=== PATIENT | female | born 1955 | race Caucasian/White ===

== ENCOUNTER → 2017-07-31 13:46 | Outpatient (CLI) | payer MEDICARE, SELFPAY ==
[2017-07-31 14:47] LABS: International Normalized Ratio 2.6; Prothrombin Time (Protime)PT. 27.8 SECONDS (11.7-14.9)
[2017-07-31 14:57] LABS: Hemoglobin A1c 6.9 % (4.2-6.3)
== END ==
PROVIDERS: Family Provider Family Medicine; PCP Family Medicine; Visit Provider Family Medicine
DX: E11.9 Type 2 diabetes mellitus without complications (principal); I48.91 Unspecified atrial fibrillation
CPT/HCPCS: 36415; 83036; 85610

== ENCOUNTER 2017-08-25 14:59 | Outpatient (RCR) | payer MEDICARE, SELFPAY ==
[2017-08-25 17:17] LABS: International Normalized Ratio 2.5; Prothrombin Time (Protime)PT. 26.7 SECONDS (11.7-14.9)
== END 2017-08-25 15:00 | disposition home or self-care (01) ==
LOC: LAB 14:59
PROVIDERS: Family Provider Family Medicine; PCP Family Medicine; Visit Provider Family Medicine
DX: I48.91 Unspecified atrial fibrillation (principal); J44.9 Chronic obstructive pulmonary disease, unspecified; F40.240 Claustrophobia; F41.9 Anxiety disorder, unspecified; F32.9 Major depressive disorder, single episode, unspecified; G45.9 Transient cerebral ischemic attack, unspecified; E11.9 Type 2 diabetes mellitus without complications; D68.62 Lupus anticoagulant syndrome; I27.21 Secondary pulmonary arterial hypertension
CPT/HCPCS: 36415; 85610

== ENCOUNTER 2017-09-29 13:35 | Outpatient (RCR) | payer MEDICARE, SELFPAY ==
[2017-09-29 15:41] LABS: International Normalized Ratio 2.6; Prothrombin Time (Protime)PT. 28.2 SECONDS (11.7-14.9)
== END 2017-09-29 14:00 | disposition home or self-care (01) ==
LOC: LAB 13:35
PROVIDERS: Family Provider Family Medicine; PCP Family Medicine; Visit Provider Family Medicine
DX: I48.91 Unspecified atrial fibrillation (principal); J44.9 Chronic obstructive pulmonary disease, unspecified; F40.240 Claustrophobia; F41.9 Anxiety disorder, unspecified; F32.9 Major depressive disorder, single episode, unspecified; Z86.73 Personal history of transient ischemic attack (TIA), and cerebral infarction without residual deficits; E11.9 Type 2 diabetes mellitus without complications; D68.62 Lupus anticoagulant syndrome; I27.21 Secondary pulmonary arterial hypertension
CPT/HCPCS: 36415; 85610

== ENCOUNTER 2017-11-24 14:03 | Outpatient (RCR) | payer MEDICARE, SELFPAY ==
[2017-11-24 15:47] LABS: Prothrombin Time (Protime)PT. 31.2 SECONDS (11.7-14.9)
[2017-11-24 16:45] LABS: Hemoglobin A1c 6.9 % (4.2-6.3)
== END 2017-11-24 15:00 | disposition home or self-care (01) ==
LOC: LAB 14:03
PROVIDERS: Family Provider Family Medicine; PCP Family Medicine; Visit Provider Family Medicine
DX: I48.91 Unspecified atrial fibrillation (principal); E11.9 Type 2 diabetes mellitus without complications; J44.9 Chronic obstructive pulmonary disease, unspecified; F40.240 Claustrophobia; F41.9 Anxiety disorder, unspecified; F32.9 Major depressive disorder, single episode, unspecified; Z86.73 Personal history of transient ischemic attack (TIA), and cerebral infarction without residual deficits; D68.62 Lupus anticoagulant syndrome; I27.21 Secondary pulmonary arterial hypertension
CPT/HCPCS: 36415; 83036; 85610

== ENCOUNTER → 2017-12-30 15:50 | Outpatient (CLI) | payer MEDICARE, SELFPAY ==
[2017-12-30 15:56] LABS: Mucous, Urine 0 SEEN /hpf (<or=2+)
[2017-12-30 17:43] LABS: Color, Urine Red (Yellow); Glucose, Dipstick Normal (Normal); Ketone-Dipstick Negative (Negative); Leukocyte Esterase-Dipstick Negative /ul (Negative); Nitrite-Dipstick Negative (Negative); Occult Blood-Urine 250 /ul (Negative); Protein-Dipstick 500 mg/dl (Negative); Urine Bilirubin Dipstick Negative (Negative); Urine Clarity Turbid (Clear); Urine Urobilinogen Normal (Normal)
[2017-12-30 17:52] LABS: Red Blood Cells-Urine > 100 SEEN /hpf (0-5); Squamous Epithelial Cells - UA 0-5 SEEN /hpf (5-10); White Blood Cells 25-50 SEEN /hpf (0-5)
[2017-12-30 17:53] LABS: Bacteria 4+ /hpf (None Seen)
== END ==
PROVIDERS: Family Provider Family Medicine; PCP Family Medicine; Visit Provider Family Medicine
DX: R31.9 Hematuria, unspecified (principal)
CPT/HCPCS: 81001

== ENCOUNTER 2018-01-06 14:12 | Outpatient (RCR) | payer MEDICARE, SELFPAY ==
[2017-12-29 17:13] LABS: Prothrombin Time (Protime)PT. 36.9 SECONDS (11.7-14.9)
[2017-12-29 17:18] LABS: International Normalized Ratio 3.7
[2018-01-06 16:25] LABS: International Normalized Ratio 2.5; Prothrombin Time (Protime)PT. 27.3 SECONDS (11.7-14.9)
== END 2018-01-06 16:00 | disposition home or self-care (01) ==
LOC: LAB 14:12
PROVIDERS: Family Provider Family Medicine; PCP Family Medicine; Visit Provider Family Medicine
DX: I48.91 Unspecified atrial fibrillation (principal); E11.9 Type 2 diabetes mellitus without complications; J44.9 Chronic obstructive pulmonary disease, unspecified; F40.240 Claustrophobia; F41.9 Anxiety disorder, unspecified; F32.9 Major depressive disorder, single episode, unspecified; Z86.73 Personal history of transient ischemic attack (TIA), and cerebral infarction without residual deficits; D68.62 Lupus anticoagulant syndrome; I27.21 Secondary pulmonary arterial hypertension
CPT/HCPCS: 36415; 85610

== ENCOUNTER 2018-02-02 15:42 | Outpatient (RCR) | payer MEDICARE, SELFPAY ==
[2018-02-02 17:48] LABS: International Normalized Ratio 2.1; Prothrombin Time (Protime)PT. 23.6 SECONDS (11.7-14.9)
== END 2018-02-02 17:00 | disposition home or self-care (01) ==
LOC: LAB 15:42
PROVIDERS: Family Provider Family Medicine; PCP Family Medicine; Visit Provider Family Medicine
DX: I48.91 Unspecified atrial fibrillation (principal); E11.9 Type 2 diabetes mellitus without complications; J44.9 Chronic obstructive pulmonary disease, unspecified; F40.240 Claustrophobia; F41.9 Anxiety disorder, unspecified; F32.9 Major depressive disorder, single episode, unspecified; Z86.73 Personal history of transient ischemic attack (TIA), and cerebral infarction without residual deficits; D68.62 Lupus anticoagulant syndrome; I27.21 Secondary pulmonary arterial hypertension
CPT/HCPCS: 36415; 85610

== ENCOUNTER → 2018-02-08 16:32 | Outpatient (CLI) | payer MEDICARE, SELFPAY | PROVIDERS: Family Provider Family Medicine; PCP Family Medicine; Referring Provider Family Medicine; Visit Provider Family Medicine | DX: N34.3 Urethral syndrome, unspecified (principal) | CPT/HCPCS: 36415; 87086; 87088; 87186 ==

== ENCOUNTER 2018-02-23 15:39 | Outpatient (RCR) | payer MEDICARE, SELFPAY ==
[2018-02-23 17:35] LABS: International Normalized Ratio 2.1
== END 2018-02-23 17:00 | disposition home or self-care (01) ==
LOC: LAB 15:39
PROVIDERS: Family Provider Family Medicine; PCP Family Medicine; Referring Provider Family Medicine; Visit Provider Family Medicine
DX: I48.91 Unspecified atrial fibrillation (principal); D68.62 Lupus anticoagulant syndrome; J44.9 Chronic obstructive pulmonary disease, unspecified; F40.240 Claustrophobia; F41.9 Anxiety disorder, unspecified; F32.9 Major depressive disorder, single episode, unspecified; E11.9 Type 2 diabetes mellitus without complications; I27.21 Secondary pulmonary arterial hypertension; Z86.73 Personal history of transient ischemic attack (TIA), and cerebral infarction without residual deficits
CPT/HCPCS: 36415; 85610

== ENCOUNTER 2018-05-05 13:15 | Outpatient (RCR) | payer MEDICARE, SELFPAY ==
[2018-04-05 14:46] LABS: International Normalized Ratio 2.8; Prothrombin Time (Protime)PT. 29.8 SECONDS (11.7-14.9)
[2018-04-06 14:32] VITALS: BMI 34.9
[2018-05-05 15:44] LABS: International Normalized Ratio 2.7; Prothrombin Time (Protime)PT. 28.6 SECONDS (11.7-14.9)
== END 2018-05-05 14:00 | disposition home or self-care (01) ==
LOC: MTLAB 13:15
PROVIDERS: Family Provider Family Medicine; PCP Family Medicine; Referring Provider Family Medicine; Visit Provider Family Medicine
DX: D68.62 Lupus anticoagulant syndrome (principal); I48.91 Unspecified atrial fibrillation; J44.9 Chronic obstructive pulmonary disease, unspecified; F40.240 Claustrophobia; F41.9 Anxiety disorder, unspecified; F32.9 Major depressive disorder, single episode, unspecified; E11.9 Type 2 diabetes mellitus without complications; I27.21 Secondary pulmonary arterial hypertension; Z86.73 Personal history of transient ischemic attack (TIA), and cerebral infarction without residual deficits
CPT/HCPCS: 36415; 85610

== ENCOUNTER 2018-05-28 15:54 | Outpatient (RCR) | payer MEDICARE, SELFPAY ==
[2018-05-06 14:47] VITALS: BMI 34.9
[2018-05-27 14:33] VITALS: BMI 34.9
[2018-05-28 18:11] LABS: International Normalized Ratio 2.5; Prothrombin Time (Protime)PT. 26.7 SECONDS (11.7-14.9)
--- OUTSIDE RECORDS SUMMARY | 2018-08-02 05:39 | XMS RPT_ITS ---
:1955 Author Organization OHIP Support Name Relationship Address Phone CALL, LARY Unavailable Unavailable + D Unavailable Unavailable Unavailable MARK LAWRENCE Unavailable Unavailable + CALL, LARY Unavailable Unavailable + D Unavailable Unavailable Unavailable MARK ALWRENCE Unavailable Unavailable + CALL, LARY Unavailable [address] + [place] [address] D Unavailable Unavailable Unavailable MARK LAWRENCE Unavailable [address] + [place] [address] CALL, LARY Unavailable [address] + [place] [address] D Unavailable Unavailable Unavailable MARK LAWRENCE Unavailable [address] + [place] [address] CALL, LARY Unavailable [address] + [place] [address] D Unavailable Unavailable Unavailable MARK LAWRENCE Unavailable [address] + [place] [address] CALL, LARY Unavailable [address] + [place] [address] D Unavailable Unavailable Unavailable MARK LAWRENCE Unavailable [address] + [place] [address] CALL, LARY Unavailable [address] + [place] [address] D Unavailable Unavailable Unavailable MARK LAWRENCE Unavailable [address] + [place] [address] CALL, LARY Unavailable [address] + [place] [address] D Unavailable Unavailable Unavailable MARK LAWRENCE Unavailable [address] + [place] [address] CALL, LARY Unavailable [address] + [place] [address] D Unavailable Unavailable Unavailable MARK LAWRENCE Unavailable [address] + [place] [address] CALL, LARY Unavailable [address] + [place] [address] D Unavailable Unavailable Unavailable MARK LAWRENCE Unavailable [address] + [place] [address] CALL, LARY Unavailable [address] + [place] [address] D Unavailable Unavailable Unavailable MARK LAWRENCE Unavailable [address] + [place] [address] CALL, LARY Unavailable [address] + [place] [address] D Unavailable Unavailable Unavailable MARK LAWRENCE Unavailable [address] + [place] [address] CALL, LARY Unavailable [address] + [place] [address] D Unavailable Unavailable Unavailable MARK LAWRENCE Unavailable [address] + [place] [address] CALL, LARY Unavailable [address] + [place] [address] D Unavailable Unavailable Unavailable MARK LAWRENCE Unavailable [address] + [place] [address] CALL LARY Unavailable [address] + [place] [address] D Unavailable Unavailable Unavailable MARK LAWRENCE Unavailable [address] + [place] [address] CALL, LARY Unavailable [address] + [place] [address] D Unavailable Unavailable Unavailable MARK LAWRENCE Unavailable [address] + [place] [address] CALLLARY Unavailable [address] + [place] [address] D Unavailable Unavailable Unavailable MARK LAWRENCE Unavailable [address] + [place] [address] CALL, LARY Unavailable [address] + [place] [address] D Unavailable Unavailable Unavailable MARK LAWRENCE Unavailable [address] + [place] [address] CALL, LARY Unavailable [address] + [place] [address] D Unavailable Unavailable Unavailable MARK LAWRENCE Unavailable [address] + [place] [address] CALL, LARY Unavailable [address] + [place] [address] D Unavailable Unavailable Unavailable MARK LAWRENCE Unavailable [address] + [place] [address] CALL, LARY Unavailable [address] + [place] [address] D Unavailable Unavailable Unavailable MARK LAWRENCE Unavailable [address] + [place] [address] CALL, LARY Unavailable [address] + [place] [address] D Unavailable Unavailable Unavailable MRAK LAWRENCE Unavailable [address] + [place] [address] CALL, LARY Unavailable [address] + [place] [address] D Unavailable Unavailable Unavailable MARK LAWRENCE Unavailable [address] + [place] [address] CALL, LARY Unavailable [address] + [place] [address] D Unavailable Unavailable Unavailable MARK LAWRENCE Unavailable [address] + [place] [address] CALL, LARY Unavailable [address] + [place] [address] D Unavailable Unavailable Unavailable MARK LAWRENCE Unavailable [address] + [place] [address] CALL, LARY Unavailable [address] + [place] [address] D Unavailable Unavailable Unavailable MARK LAWRENCE Unavailable [address] + [place] [address] CALLLARY Unavailable [address] + [place] [address] D Unavailable Unavailable Unavailable MARK LAWRENCE Unavailable [address] + [place] [address] CALLLARY Unavailable [address] + [place] [address] D Unavailable Unavailable Unavailable MARK LAWRENCE Unavailable [address] + [place] [address] CALL, ALRY Unavailable [address] + [place] [address] D Unavailable Unavailable Unavailable MARK LAWRENCE Unavailable [address] + [place] [address] CALL, LARY Unavailable [address] + [place] [address] D Unavailable Unavailable Unavailable MARK LAWRENCE Unavailable [address] + [place] [address] Care Team Providers Name Role Phone CADEN WILLETT (PIPE RACKER) Referring Unavailable HERESI MARIE, NEERAJ A Referring Unavailable JAY, CADEN (PIPE RACKER) Referring Unavailable HERESI MARIE, NEERAJ A Attending Unavailable HERESI MARIE, NEERAJ A Referring Unavailable HERESI MARIE, NEERAJ A Referring Unavailable JAY, CADEN (PIPE RACKER) Referring Unavailable JAY, CADEN (PIPE RACKER) Attending Unavailable JAY, CADEN (PIPE RACKER) Referring Unavailable JAY, CADEN (PIPE RACKER) Referring Unavailable Brown, Anika Attending Unavailable Brown, Anika Referring Unavailable Brown, Anika Attending Unavailable Brown, Anika Referring Unavailable Brown, Anika Primary Care Unavailable Brown, Anika Attending Unavailable Brown, Anika Referring Unavailable Brown, Anika Attending Unavailable Brown, Anika Referring Unavailable Brown, Anika Primary Care Unavailable Brown, Anika Attending Unavailable Brown, Anika Referring Unavailable Brown, Anika Attending Unavailable Brown, Anika Referring Unavailable Brown, Anika Primary Care Unavailable Brown, Anika Attending Unavailable Brown, Anika Referring Unavailable Brown, Anika Primary Care Unavailable Brown, Anika Attending Unavailable Brown, Anika Referring Unavailable Brown, Anika Primary Care Unavailable Brown, Anika Attending Unavailable Brown, Anika Referring Unavailable Brown, Anika Primary Care Unavailable Brown, Anika Attending Unavailable Brown, Anika Referring Unavailable Brown, Anika Primary Care Unavailable Brown, Anika Attending Unavailable Brown, Anika Referring Unavailable Brown, Anika Primary Care Unavailable Hailee Renteria Attending Unavailable Brown, Anika Attending Unavailable Brown, Anika Referring Unavailable Brown, Anika Primary Care Unavailable Brown, Anika Attending Unavailable Brown, Anika Referring Unavailable Brown, Anika Attending Unavailable Brown, Anika Referring Unavailable Brown, Anika Attending Unavailable Brown, Anika Referring Unavailable Brown, Anika Attending Unavailable Brown, Anika Referring Unavailable Brown, Anika Attending Unavailable Brown, Anika Referring Unavailable Brown, Anika Primary Care Unavailable Brown, Anika Attending Unavailable Brown, Anika Referring Unavailable Brown, Anika Primary Care Unavailable Brown, Anika Attending Unavailable Brown, Anika Referring Unavailable Brown, Anika Primary Care Unavailable Brown, Anika Attending Unavailable Brown, Anika Referring Unavailable Brown, Anika Primary Care Unavailable Brown, Anika Attending Unavailable Brown, Anika Referring Unavailable Brown, Anika Attending Unavailable Brown, Anika Referring Unavailable Brown, Anika Primary Care Unavailable Brown, Anika Attending Unavailable Brown, Anika Referring Unavailable Brown, Anika Primary Care Unavailable Brown, Anika Attending Unavailable Brown, Anika Referring Unavailable Parrish Calix DIE CASTER-C Attending Unavailable Brown, Anika Referring Unavailable Brown, Anika Attending Unavailable Brown, Anika Referring Unavailable Brown, Anika Primary Care Unavailable Darya Marquez Attending Unavailable Brown, Anika Referring Unavailable O[place]yeRadhaewongbe Attending Unavailable Brown, Anika Referring Unavailable Brown, Anika Attending Unavailable Brown, Anika Referring Unavailable PROBLEMS PROBLEMS DATE TYPE CONDITION / CODE ATTENDING STATUS SOURCE 05/06/2018 Unknown E11.9 - Type 2 Anika Pedraza Active [place] diabetes mellitus Community without Hospital complications / Repository E11.9(ICD-10) 05/10/2018 Unknown D68.62 - Lupus Anika Pedraza Active [facility] anticoagulant Community syndrome / Hospital D68.62(ICD-10) Repository 04/06/2018 Unknown Z12.31 - Encounter Anika Pedraza Active [facility] for screening Community mammogram for Hospital malignant neoplasm Repository of breast / Z12.31(ICD-10) 03/25/2018 Active Other prison NA Active [facility] (current) drug [facility] Main therapy / [place] Z79.899(ICD-10) Repository 03/11/2018 Unknown I48.91 - Unspecified BrownAnika Active [place] atrial fibrillation Community / I48.91(ICD-10) Hospital Repository 03/11/2018 Unknown 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 Community 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 / Hospital Z79.01(ICD-10) Repository 02/04/2018 Unknown Z23 - Encounter for Anika Pedraza Active [place] immunization / Community Z23(ICD-10) Hospital Repository 01/12/2018 Unknown R31.9 - Hematuria, Ankia Pedraza Active [place] unspecified / Community R31.9(ICD-10) Hospital Repository 11/25/2017 Unknown F41.9 - Anxiety Anika Pedraza Active [facility] disorder, Community unspecified / Hospital F41.9(ICD-10) Repository 11/25/2017 Unknown G45.9 - Transient Anika Pedraza Active [place] cerebral ischemic Community attack, unspecified Hospital / G45.9(ICD-10) Repository 11/25/2017 Unknown I27.0 - Primary Anika Pedraza Active [facility] pulmonary Community hypertension / Hospital I27.0(ICD-10) Repository 11/25/2017 Unknown L73.9 - Follicular Anika Pedraza Active [facility] disorder, Community unspecified / Hospital L73.9(ICD-10) Repository 10/06/2017 Active Chronic NA Active [facility] thromboembolic Clinic Main pulmonary [place] hypertension / Repository I27.24(ICD-10) 09/23/2017 Active Shortness of breath NA Active [facility] / R06.02(ICD-10) Clinic Main [place] Repository 09/23/2017 Active Pulmonary heart NA Active [facility] disease, unspecified Clinic Main / I27.9(ICD-10) [place] Repository 07/29/2017 Unknown I27.21 - Secondary Anika Pedraaz Active [facility] pulmonary arterial Community hypertension / Hospital I27.21(ICD-10) Repository 07/29/2017 Unknown J44.9 - Chronic Anika Pedraza Active [facility] obstructive Community pulmonary disease, Hospital unspecified / Repository J44.9(ICD-10) 07/29/2017 Unknown F40.240 - Anika Pedraza Active [facility] Claustrophobia / Community F40.240(ICD-10) Hospital Repository 07/29/2017 Unknown F32.9 - Major Anika Pedraza Active [facility] depressive disorder, Community single episode, Hospital unspecified / Repository F32.9(ICD-10) PROCEDURES PROCEDURES No Procedure Records FoundRESULTS RESULTS SCREENING MAMM (CAD), Observed: 05/31/2018 Status: F Source: [place] REZA 3:[address] [facility] REPOSITORY [facility] Imaging Services [address] [place] [address] SCREENING MAMM (CAD), BILAT MR#: [id number] Acct: [id number] Name: BETI GARCIA Rep #: [id number] : 1955 F 63 From: Lito Juarez MD PCP: Anika Pedraza DO Status: REG CLI Study: SCREENING MAMM (CAD), BILAT Date of Exam: 05/31/18 Exam# [id number] Ordering Dr: Anika Pedraza DO MAMMOGRAPHY - BILATERAL SCREENING REASON FOR EXAM: Female, 63 years old. Routine annual screening examination. PERTINENT HISTORY: Non-contributory. TECHNIQUE: Digital bilateral breast gissell (3D mammographic acquisition) in the CC and MLO projections. 2-D mediolateral oblique (MLO) and craniocaudad (CC) views of both breasts were obtained. CAD: Full Field Digital Mammography with Computer Added Detection was performed. COMPARISON: Comparison is made with prior mammogram dated April 20, 2015 and May 14, 2010. FINDINGS: Breast Composition: The breasts are almost entirely fatty. There are no dominant masses or suspicious calcifications. Stable small benign-appearing bilateral axillary lymph nodes. No other significant abnormalities are identified. There has been no significant change since the prior study. BI/SCREENING MAMM (CAD), BILAT IMPRESSION: Stable bilateral screening mammogram. Yearly follow-up mammogram recommended. (A) ASSESSMENT CATEGORY: BIRADS Category 2: Benign. A letter regarding these results will be sent to the patient by the facility within 30 days. Approximately 10% of breast cancers are not detected by mammography. A normal mammogram should not delay biopsy of a clinically suspicious abnormality. [id number] Electronically Signed: Lito Juarez MD at 8:23 EST Tel [phone], Service support , CC: Anika Pedraza DO Test Engine Evaluator: Signed PROTHROMBIN TIME W/INR Collected: 05/28/2018 Status: F Source: [place] 4:[address] [facility] REPOSITORY TYPE CODE TESTS RESULT OUT OF RANGE REFERENCE UNITS LAB L300.4150 11.7-14.9 SECONDS High PROTIME 26.7 LAB L300.4200 Normal INR 2.5 Performed By: #### L300.3900 #### [facility] [address] [place], [address] INTERNAL MEDICINE Observed: 05/27/2018 Status: F Source: [place] OFFICE VISIT 3:[address] [facility] REPOSITORY [facility] [address] [place] [address] OFFICE VISIT Date of Service: 05/27/18 MR#: [id number] Acct: [id number] Name: BETI GARCIA Rep #: [id number] : 1955 Provider: Anika Pedraza DO Age/Sex: 63/F Location: [facility] Status: Signed Intake Vital Signs05/27/18 Body Mass Index (BMI) 34.9 05/27/18 Height 5 ft 4 in 05/27/18 Weight: 208 lb 05/27/18 Body Mass Index (BMI) 35.6 05/27/18 Blood Pressure 167/75 H Intake Visit Reasons: 1 MO FU Chief Complaint: 1 MO FU Allergies nitroglycerin Adverse Reaction (Verified 05/27/18 14:30) Other Medications Ambrisentan [Letairis] 10 mg PO DAILY 04/21/16 [History Confirmed 05/27/18] Ferrous Sulfate [Slow Release Iron] 47.5 mg PO QHS 04/21/16 [History Confirmed 05/27/18] Omeprazole [Prilosec] 20 mg PO DAILY 04/21/16 [History Confirmed 05/27/18] Oxygen, Home [Home Oxygen] 5 l NASAL CONT 04/21/16 [History Confirmed 05/27/18] cholecalciferol (vitamin D3) 2,000 unit capsule 2,000 unit PO ONCE 07/29/17 [History Confirmed 05/27/18] diltiazem ER 360 mg tablet,extended release 24 hr 360 mg PO DAILY #90 tab 08/26/17 [Rx Confirmed 05/27/18] fluticasone 250 mcg-salmeterol 50 mcg/dose blistr powdr for inhalation 1 inh INHALATION DAILY #90 ea 08/26/17 [Rx Confirmed 05/27/18] potassium chloride ER 20 mEq tablet,extended release(part/cryst) 20 meq PO TID #270 tab 08/26/17 [Rx Confirmed 05/27/18] spironolactone 50 mg tablet 50 mg PO DAILY #90 tab 08/26/17 [Rx Confirmed 05/27/18] ascorbic acid (vitamin C) 1,000 mg tablet 1 g PO QDAY tab 11/09/17 [History Confirmed 05/27/18] desvenlafaxine succinate ER 100 mg tablet,extended release 24 hr 100 mg PO DAILY #90 tab 12/09/17 [Rx Confirmed 05/27/18] pravastatin 40 mg tablet 40 mg PO QHS #90 tab 01/04/18 [Rx Confirmed 05/27/18] warfarin 1 mg tablet 1 mg PO QTUTHSASU #30 tab 01/08/18 [Rx Confirmed 05/27/18] triamcinolone acetonide 0.5 % topical cream 1 applic TOPICAL BID #454 g 02/06/18 [Rx Confirmed 05/27/18] fluticasone 50 mcg/actuation nasal spray,suspension 2 spray INTRANASAL DAILY #19.8 g 02/25/18 [Rx Confirmed 05/27/18] furosemide 40 mg tablet 40 mg PO BID #180 tab 02/25/18 [Rx Confirmed 05/27/18] metformin ER 500 mg tablet,extended release 24 hr 500 mg PO QDAY #90 tab 04/12/18 [Rx Confirmed 05/27/18] olanzapine 2.5 mg tablet 2.5 mg PO DAILY #90 tab 04/26/18 [Rx Confirmed 05/27/18] tolterodine ER 2 mg capsule,extended release 24 hr 2 mg PO DAILY cap 05/06/18 [History Confirmed 05/27/18] alprazolam 1 mg tablet 1 mg PO BID #60 tab 05/27/18 [Rx Confirmed 05/27/18] warfarin 3 mg tablet 3 mg PO DAILY #90 tab 05/27/18 [Rx Confirmed 05/27/18] [facility] Medical History Primary pulmonary hypertension (PPH) (Chronic) COPD (chronic obstructive pulmonary disease) (Chronic) Claustrophobia (Chronic) Anxiety (Chronic) Depression (Chronic) TIA (transient ischemic attack) (Acute) Type 2 diabetes mellitus (Chronic) Atrial fibrillation (Chronic) Lupus anticoagulant disorder (Chronic) Pulmonary arterial hypertension (Chronic) Surgical History History of cholecystectomy (Acute) History of placement of ear tubes (Acute) History of tonsillectomy (Acute) history of bunion surgery (Acute) Family History Mother COPD (chronic obstructive pulmonary disease) Cancer melanoma Father Heart disease Alcoholism Grandmother Cancer Grandfather Parkinsons disease Social History Smoking Status: Former smoker HPI HPI Chief Complaint: 1 MO FU Details: BETI GARCIA, is a 63 F who presents to the office today for a monthly recheck. ROS Const Constitutional: Positive for weight change; no chills, fatigue, fever(s), frequent falls, malaise, weakness, sleep problems or change in appetite Eyes Eyes: No blurry vision, change in vision, double vision, discharge or visual disturbances ENT ENT: No abnormal hearing, ear pain, ear pressure, tinnitus or dizziness/vertigo Resp Respiratory: No cough, shortness of breath or wheezing Cardio Cardiology: No chest pain at rest, chest pain with exertion, shortness of breath, dyspnea on exertion, generalized swelling, irregular heart rhythm, lightheadedness, orthopnea, fast heart rate or palpitations Gastro GI: No abdominal pain, change in bowel habits, constipation, diarrhea, nausea/dyspepsia or vomiting Genitourinary-Female: No difficulty urinating, burning urination, painful urination, urinary incontinence, urinary frequency, urinary urgency, urinary hesitancy, urinary retention, Frequent nighttime urination/ nocturia, sexual problems, genital lesions, abnormal vaginal bleeding, pelvic pain, vaginal dryness, vaginal odor or Vaginal Itching Musc Musculoskeletal: No joint pain, back pain, joint swelling, limited range of motion, numbness, tingling or muscle weakness Skin Skin: No change in skin color, itching, rash or wounds Breast Breast: No breast lump or breast pain Neuro Neurology: No frequent falls, weakness, visual disturbances, abnormal hearing, numbness, tingling, unsteady gait/balance, dizziness, loss of vision or memory loss Psych Psychiatric: No change in appetite, No memory loss, No anxiety, No depression, No Thoughts of harming yourself/Others Endo Endocrine: No fatigue, heat intolerance, increased thirst/drinking, increased hunger or increased urination Aller/Imm Allergy/Immunologic: No wheezing, itchy eyes or seasonal allergy symptoms [place]/Lymp Hematologic/Lymphatic: No easy bleeding, easy bruising or enlarged lymph nodes Exam Const General: cooperative Nutritional Appearance: overweight Orientation: oriented x3 HENMT Ears: TM abnormal Nose: external nose normal, mucous membranes and turbinates abnormal Mouth: oral mucosae normal Resp Effort AND Inspection: normal respiratory effort Auscultation: Bilateral: Clear to Auscultation Cardio Rate: regular rate Rhythm: regular rhythm Musc Musculoskeletal: No muscle weakness Skin General: no rashes or lesions noted Neuro General: oriented x3 Extrem General: normal to inspection, no clubbing, cyanosis or edema Psych Appearance: grossly normal Mental Status: mental status grossly normal Affect: normal affect Assessment AND Plan Problems 1. Chronic sinusitis J32.9 2. assisted (current) use of 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 Z79.01 3. COPD (chronic obstructive pulmonary disease) J44.9 4. Claustrophobia F40.240 5. Anxiety F41.9 6. Type 2 diabetes mellitus E11.9 7. Pulmonary arterial hypertension I27.21 Plan This patient was in for monthly recheck she has a complex number of problems some of them physical and some of the emotional. Her sugar seems to be under good control but she has lately been binge carbohydrate eating because of some family disagreements. I talked for quite a while with her trying to get her to understand some of the underlying reasons that she is doing this since she has very good insight. Physical examination is not changed I see no reason to change medications. I think her alprazolam is up-to-date and she was going to check the bottle because according to my directions she should have 2 refills left. I will continue following her on a monthly basis. 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.01 COPD (chronic obstructive pulmonary disease) J44.9 Claustrophobia F40.240 Anxiety F41.9 Type 2 diabetes mellitus E11.9 Pulmonary arterial hypertension I27.21 05/27/18 1509 <Electronically signed by Anika Pedraza DO> Date Anika Pedraza DO Cosigner Signature: Date (if applicable) CC: PROGRESS Observed: 05/13/2018 Status: COMPLETED Source: [place] 10:41 AM [facility] [place] REPOSITORY HNO ID: [id number] Author: Bucky House Service: (none) Author Type: (none) Type: Progress Notes Filed: 05/13/2018 10:42 AM Note Text: INTERNAL MEDICINE Observed: 05/06/2018 Status: F Source: [place] OFFICE VISIT 3:[address] [facility] REPOSITORY [facility] [address] [place] [address] OFFICE VISIT Date of Service: 05/06/18 MR#: [id number] Acct: [id number] Name: BETI GARCIA Sandra Rep #: [id number] : 1955 Provider: Anika Pedraza DO Age/Sex: 63/F Location: [facility] Status: Signed Intake Vital Signs05/06/18 Body Mass Index (BMI) 34.9 05/06/18 Height 5 ft 4 in Intake Visit Reasons: 1 MO FU Chief Complaint: f/u visit Is patient in pain?: No Allergies nitroglycerin Adverse Reaction (Verified 04/06/18 14:36) Other Medications Ambrisentan [Letairis] 10 mg PO DAILY 04/21/16 [History Confirmed 03/03/18] Ferrous Sulfate [Slow Release Iron] 47.5 mg PO QHS 04/21/16 [History Confirmed 03/03/18] Omeprazole [Prilosec] 20 mg PO DAILY 04/21/16 [History Confirmed 03/03/18] Oxygen, Home [Home Oxygen] 5 l NASAL CONT 04/21/16 [History Confirmed 03/03/18] cholecalciferol (vitamin D3) 2,000 unit capsule 2,000 unit PO ONCE 07/29/17 [History Confirmed 03/03/18] diltiazem ER 360 mg tablet,extended release 24 hr 360 mg PO DAILY #90 tab 08/26/17 [Rx Confirmed 03/03/18] fluticasone 250 mcg-salmeterol 50 mcg/dose blistr powdr for inhalation 1 inh INHALATION DAILY #90 ea 08/26/17 [Rx Confirmed 03/03/18] potassium chloride ER 20 mEq tablet,extended release(part/cryst) 20 meq PO TID #270 tab 08/26/17 [Rx Confirmed 03/03/18] spironolactone 50 mg tablet 50 mg PO DAILY #90 tab 08/26/17 [Rx Confirmed 03/03/18] ascorbic acid (vitamin C) 1,000 mg tablet 1 g PO QDAY tab 11/09/17 [History Confirmed 03/03/18] warfarin 3 mg tablet 3 mg PO DAILY tab 11/09/17 [History Confirmed 03/03/18] desvenlafaxine succinate ER 100 mg tablet,extended release 24 hr 100 mg PO DAILY #90 tab 12/09/17 [Rx Confirmed 03/03/18] pravastatin 40 mg tablet 40 mg PO QHS #90 tab 01/04/18 [Rx Confirmed 03/03/18] warfarin 1 mg tablet 1 mg PO QTUTHSASU #30 tab 01/08/18 [Rx Confirmed 03/03/18] triamcinolone acetonide 0.5 % topical cream 1 applic TOPICAL BID #454 g 02/06/18 [Rx Confirmed 03/03/18] alprazolam 1 mg tablet 1 mg PO BID #60 tab 02/25/18 [Rx Confirmed 03/03/18] fluticasone 50 mcg/actuation nasal spray,suspension 2 spray INTRANASAL DAILY #19.8 g 02/25/18 [Rx Confirmed 03/03/18] furosemide 40 mg tablet 40 mg PO BID #180 tab 02/25/18 [Rx Confirmed 03/03/18] metformin ER 500 mg tablet,extended release 24 hr 500 mg PO QDAY #90 tab 04/12/18 [Rx] olanzapine 2.5 mg tablet 2.5 mg PO DAILY #90 tab 04/26/18 [Rx] prednisone 10 mg tablets in a dose pack See Rx Instructions PO PER PKG DIR #21 tab 05/06/18 [Rx Confirmed 05/06/18] tolterodine ER 2 mg capsule,extended release 24 hr 2 mg PO DAILY cap 05/06/18 [History] Post menopausal: Yes PFSH Medical History Primary pulmonary hypertension (PPH) (Chronic) COPD (chronic obstructive pulmonary disease) (Chronic) Claustrophobia (Chronic) Anxiety (Chronic) Depression (Chronic) TIA (transient ischemic attack) (Acute) Type 2 diabetes mellitus (Chronic) Atrial fibrillation (Chronic) Lupus anticoagulant disorder (Chronic) Pulmonary arterial hypertension (Chronic) Surgical History History of placement of ear tubes (Acute) History of cholecystectomy (Acute) History of tonsillectomy (Acute) history of bunion surgery (Acute) Family History Mother COPD (chronic obstructive pulmonary disease) Cancer melanoma Father Heart disease Alcoholism Grandmother Cancer Grandfather Parkinsons disease Social History Smoking Status: Former smoker HPI HPI Chief Complaint: f/u visit Details: BETI GARCIA, is a 63 F who presents to the office today for a follow-up visit as well as evaluation for persistent hoarseness. She had seen an ENT doctor who did a myringotomy and relieved some of her hearing loss in her right ear from a chronic serous otitis media. However the persistent postnasal drainage still persists and she has a very edematous cords. ROS Const Constitutional: No body ache, chills, headache(s), weakness or fever(s) Eyes Eyes: No blurry vision, change in vision, eye pain or discharge ENT ENT: Positive for nasal discharge, sore throat and hoarseness; no headache(s), abnormal hearing, ear pain, ear pressure, tinnitus, dizziness/vertigo or balance problems Resp Respiratory: No cough, shortness of breath or wheezing Cardio Cardiology: No chest pain at rest, shortness of breath, dyspnea on exertion or palpitations Gastro GI: No abdominal pain or bloating Musc Musculoskeletal: No muscle weakness Neuro Neurology: No headache(s), weakness or abnormal hearing Aller/Imm Allergy/Immunologic: No wheezing Exam Const General: cooperative Nutritional Appearance: overweight Orientation: oriented x3 HENMT Ears: TM abnormal with myringotomy tube present on the right Nose: external nose normal, mucous membranes and turbinates abnormal Mouth: oral mucosae normal Resp Effort AND Inspection: normal respiratory effort Auscultation: Bilateral: Clear to Auscultation Cardio Rate: regular rate Rhythm: regular rhythm Musc Musculoskeletal: No muscle weakness Skin General: no rashes or lesions noted Neuro General: oriented x3 Extrem General: normal to inspection, no clubbing, cyanosis or edema Psych Appearance: grossly normal Mental Status: mental status grossly normal Affect: normal affect Results POCA1C POC A1C 6.4 % Last Edit by Hailee Renteria on 05/06/18 15:13 Assessment AND Plan Problems 1. Type 2 diabetes mellitus E11.9 2. Sensation of fullness in right ear H93.8X1 3. Anxiety F41.9 4. Primary pulmonary hypertension (PPH) I27.0 5. Laryngitis J04.0 Plan This patient was seen for a follow-up on her Coumadin therapy as well as problems with laryngitis. She has seen an ENT doctor within the last week but he focused on her serous otitis media and put a tympanostomy tube in the right tympanic membrane. She can barely talk she talks with a hoarse whisper I did an A1c which is 6.4 started her on prednisone because of the A1c was so low and told her she needs to be on voice rest for 72 hours. If that the end of voice rest and the prednisone she maintains the same level of speech impairment I will probably re-refer her for a laryngoscopy. Orders Orders: Medications New: Plan Detail Follow Up 2 Months Coding Level of Care Code Off vis,est,level 3 Diagnoses Type 2 diabetes mellitus E11.9 Sensation of fullness in right ear H93.8X1 Anxiety F41.9 Primary pulmonary hypertension (PPH) I27.0 Laryngitis J04.0 05/06/18 1517 <Electronically signed by Anika Pedraza DO> Date [facility] Signature: Date (if applicable) CC: PROTHROMBIN TIME W/INR Collected: 05/05/2018 Status: F Source: [place] 1:[address] [facility] REPOSITORY TYPE CODE TESTS RESULT OUT OF RANGE REFERENCE UNITS LAB L300.4150 11.7-14.9 SECONDS High PROTIME 28.6 LAB L300.4200 Normal INR 2.7 Performed By: #### L300.3900 #### [facility] [address] [place], [address] INTERNAL MEDICINE Observed: 04/06/2018 Status: F Source: [place] OFFICE VISIT 3:[address] 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: No Is patient in pain?: No Allergies nitroglycerin Adverse Reaction (Verified 04/06/18 14:36) Other Medications Ambrisentan [Letairis] 10 mg PO DAILY 04/21/16 [History Confirmed 03/03/18] Ferrous Sulfate [Slow Release Iron] 47.5 mg PO QHS 04/21/16 [History Confirmed 03/03/18] Olanzapine [Zyprexa] 2.5 mg PO DAILY 04/21/16 [History Confirmed 03/03/18] Omeprazole [Prilosec] 20 mg PO DAILY 04/21/16 [History Confirmed 03/03/18] Oxygen, Home [Home Oxygen] 5 l NASAL CONT 04/21/16 [History Confirmed 03/03/18] cholecalciferol (vitamin D3) 2,000 unit capsule 2,000 unit PO ONCE 07/29/17 [History Confirmed 03/03/18] metformin ER 500 mg tablet,extended release 24 hr 500 mg PO QDAY 07/29/17 [History Confirmed 03/03/18] diltiazem ER 360 mg tablet,extended release 24 hr 360 mg PO DAILY #90 tab 08/26/17 [Rx Confirmed 03/03/18] fluticasone 250 mcg-salmeterol 50 mcg/dose blistr powdr for inhalation 1 inh INHALATION DAILY #90 ea 08/26/17 [Rx Confirmed 03/03/18] potassium chloride ER 20 mEq tablet,extended release(part/cryst) 20 meq PO TID #270 tab 08/26/17 [Rx Confirmed 03/03/18] spironolactone 50 mg tablet 50 mg PO DAILY #90 tab 08/26/17 [Rx Confirmed 03/03/18] tolterodine ER 2 mg capsule,extended release 24 hr 2 mg PO BID #60 cap 10/07/17 [Rx Confirmed 03/03/18] ascorbic acid (vitamin C) 1,000 mg tablet 1 g PO QDAY tab 11/09/17 [History Confirmed 03/03/18] warfarin 3 mg tablet 3 mg PO DAILY tab 11/09/17 [History Confirmed 03/03/18] desvenlafaxine succinate ER 100 mg tablet,extended release 24 hr 100 mg PO DAILY #90 tab 12/09/17 [Rx Confirmed 03/03/18] pravastatin 40 mg tablet 40 mg PO QHS #90 tab 01/04/18 [Rx Confirmed 03/03/18] warfarin 1 mg tablet 1 mg PO QTUTHSASU #30 tab 01/08/18 [Rx Confirmed 03/03/18] triamcinolone acetonide 0.5 % topical cream 1 applic TOPICAL BID #454 g 02/06/18 [Rx Confirmed 03/03/18] alprazolam 1 mg tablet 1 mg PO BID #60 tab 02/25/18 [Rx Confirmed 03/03/18] fluticasone 50 mcg/actuation nasal spray,suspension 2 spray INTRANASAL DAILY #19.8 g 02/25/18 [Rx Confirmed 03/03/18] furosemide 40 mg tablet 40 mg PO BID #180 tab 02/25/18 [Rx Confirmed 03/03/18] Post menopausal: Yes Nurse's Note: Pt presents for a 1 mo f/u [facility] Medical History Primary pulmonary hypertension (PPH) (Chronic) COPD (chronic obstructive pulmonary disease) (Chronic) Claustrophobia (Chronic) Anxiety (Chronic) Depression (Chronic) TIA (transient ischemic attack) (Acute) Type 2 diabetes mellitus (Chronic) Atrial fibrillation (Chronic) Lupus anticoagulant disorder (Chronic) Pulmonary arterial hypertension (Chronic) Surgical History History of cholecystectomy (Acute) History of tonsillectomy (Acute) history of bunion surgery (Acute) Family History Mother COPD (chronic obstructive pulmonary disease) Cancer melanoma Father Heart disease Alcoholism Grandmother Cancer Grandfather Parkinsons disease Social History Smoking Status: Former smoker HPI HPI Chief Complaint: Right ear pressure Details: BETI GARCIA, is a 63 F who presents to the office today for her monthly check up, and discussion about her ear problem. ROS Const Constitutional: No anorexia, body ache, chills, fever(s), decreased energy, malaise, night sweats, weight change, sleep problems, other, snoring, weakness, frequent falls, headache(s), abnormal sleep pattern, change in appetite, excessive sweating or fatigue Eyes Eyes: No blurry vision, change in vision, double vision, discharge, dry eyes, bulging eyes, floaters, eye pain, light sensitivity, spots in vision, tunnel vision, other or visual disturbances ENT ENT: Positive for hearing loss (R ear ); no ear pain, ear discharge, ear pressure, tinnitus, dizziness/vertigo, balance problems, nosebleed/epistaxis, nasal congestion, nasal obstruction, nose pain, sinus pressure, sinus pain, nasal discharge, post nasal drip, facial pain, dental pain, dry mouth, bad breath, hoarseness, mouth lesions, mouth pain, sore throat, difficulty swallowing, neck pain, abnormal hearing, headache(s), other, lip swelling, throat swelling or tongue swelling Resp Respiratory: No cough, change in phlegm color, chest congestion, excessive phlegm production, hemoptysis, pain on inspiration, shortness of breath, pain with cough, snoring, stridor, other or wheezing Cardio Cardiology: No chest pain at rest, chest pain with exertion, leg pain with exertion, shortness of breath, dyspnea on exertion, generalized swelling, irregular heart rhythm, lightheadedness, orthopnea, radiating jaw, neck or arm pain, fast heart rate, slow heart rate, palpitations, other or excessive sweating Gastro GI: No abdominal pain, belching, bloating, change in bowel habits, change in stool character, coffee ground emesis, constipation, cramping, diarrhea, heartburn, difficulty swallowing, feeling full early, excessive flatus, incontinent of stools, Vomiting blood/hematemesis, blood in stool, loose stools, Black,tarry stools, nausea/dyspepsia, pain with swallowing, vomiting or other Genitourinary-Female: No difficulty urinating, burning urination, painful urination, urinary incontinence, urinary frequency, urinary urgency, urinary hesitancy, urinary retention, blood in urine, Frequent nighttime urination/ nocturia, post void dribbling, suprapubic fullness, side pain, sexual problems, genital lesions, genital itching, hot flashes, abnormal periods, abnormal vaginal bleeding, absent period, painful periods, light periods, heavy periods, difficulty getting , painful intercourse, pelvic pain, vaginal dryness, vaginal odor, Vaginal Itching or other Musc Musculoskeletal: No joint pain, back pain, deformity, joint swelling, limited range of motion, loss of height, muscle cramps, muscle weakness, decreased muscle mass, body aches, neck pain, radiating pain into limb, stiffness, other, abnormal walking, numbness or tingling Skin Skin: No acne, hair loss, change in hair, nail changes, boil, change in skin color, dry skin, redness, excessive hair growth, yellowing of the skin, lesions, rash, skin pain, skin ulcer, sores, skin swelling, wounds, other or itching Breast Breast: No change in breast shape, breast lump, breast pain, breast skin changes, breast swelling, nipple discharge or other Neuro Neurology: No abnormal walking, abnormal hearing, abnormal movements, abnormal speech, unsteady gait/balance, dizziness, weakness, frequent falls, headache(s), lack of coordination, loss of vision, numbness, tingling, visual disturbances, restless legs, fainting, tremor(s), other, behavioral changes, confusion or memory loss Psych Psychiatric: No abnormal sleep pattern, No lack of enjoyment, No anxiety, No behavioral changes, No change in appetite, No confusion, No depression, No difficulty concentrating, No hopelessness, No irritability, No memory loss, No mood swings, No panic attacks, No paranoia, No Thoughts of harming yourself/Others, No hallucinations, No other Endo Endocrine: No change in body appearance, cold intolerance, excessive sweating, fatigue, flushing, heat intolerance, increased thirst/drinking, increased hunger, increased urination or other Aller/Imm Allergy/Immunologic: No food intolerance, itchy eyes, lip swelling, seasonal allergy symptoms, throat swelling, tongue swelling, hives, wheezing or other Arden/Lymp Hematologic/Lymphatic: No easy bleeding, easy bruising, enlarged lymph nodes or other Exam Const General: cooperative Nutritional Appearance: overweight Orientation: oriented x3 HENMT Ears: TM abnormal wth effusion serosanguinous Nose: external nose normal, mucous membranes and turbinates abnormal boggy and erythematous Mouth: oral mucosae normal Resp Effort AND Inspection: normal respiratory effort Auscultation: Bilateral: Clear to Auscultation Cardio Rate: regular rate Rhythm: regular rhythm Musc Musculoskeletal: No muscle weakness Skin General: no rashes or lesions noted Neuro General: oriented x3 Extrem General: normal to inspection, no clubbing, cyanosis or edema Psych Appearance: grossly normal Mental Status: mental status grossly normal Affect: normal affect Assessment AND Plan Problems 1. Chronic sinusitis J32.9 2. assisted (current) use of 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 Z79.01 3. Primary pulmonary hypertension (PPH) I27.0 4. Anxiety F41.9 5. Depression F32.9 6. Type 2 diabetes mellitus E11.9 Plan This patient was here for monthly checkup her INR is have been in the therapeutic range. She is not had any significant change as far as her breathing and has recently been evaluated by the primary pulmonary hypertension clinic up at [facility]. She is still trying to qualify for the liquid oxygen she was receiving from [facility]. And she has seen an ENT doctor who diagnosed her with chronic serous otitis media put her on a different type of sinus wash told her to stop the Afrin and treated her with ciprofloxacin also. Her mild weight loss continues she really seems to feel well except for the loss of hearing in the right ear and the effusion is still present. Medications were reviewed we will follow-up in a month. Orders Orders: Plan Detail Follow Up 1 Month Coding Level of Care Code Off vis,est,level 3 Diagnoses Chronic sinusitis J32.9 assisted (current) use of 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 Z79.01 Primary pulmonary hypertension (PPH) I27.0 Anxiety F41.9 Depression F32.9 Type 2 diabetes mellitus E11.9 04/06/18 1539 <Electronically signed by Anika Pedraza DO> Date Anika Pedraza DO Cosigner Signature: Date (if applicable) CC: PROTHROMBIN TIME W/INR Collected: 04/05/2018 Status: F Source: [place] 1:[address] [facility] REPOSITORY TYPE CODE TESTS RESULT OUT OF RANGE REFERENCE UNITS LAB L300.4150 11.7-14.9 SECONDS High PROTIME 29.8 LAB L300.4200 Normal INR 2.8 Performed By: #### L300.3900 #### [facility] [address] [place], [address] PROGRESS Observed: 03/30/2018 Status: COMPLETED Source: [place] 2:43 PM [facility] [place] REPOSITORY HNO ID: [id number] Author: Bucky House Service: (none) Author Type: (none) Type: Progress Notes Filed: 03/30/2018 2:45 PM Note Text: Patient returned my call. I provided her the number to [employer]. She will keep me abreast. Bucky House Admin Ammonia Print Operator Pulmonary Hypertension AND HHT PROGRESS Observed: 03/30/2018 Status: COMPLETED Source: [place] 1:47 PM [facility] [place] REPOSITORY HNO ID: [id number] Author: Bucky House Service: (none) Author Type: (none) Type: Progress Notes Filed: 03/30/2018 1:48 PM Note Text: Received message that patient had questions regarding Letairis and patient assistance. Called patient, no answer, left voicemail. Bucky House Admin Ammonia Print Operator Pulmonary Hypertension AND HHT CNCO Observed: 03/29/2018 Status: COMPLETED Source: [place] 12:00 AM [facility] REPOSITORY Letter Text March 25, 2018 Anika Pedraza, DO [address] [phone] NAME: Beti Garcia [facility] NO: [id number] DATE OF SERVICE: 03/25/[address] Pedraza, Dr. Neeraj Ochoa and the Advanced Lung Disease Team had the pleasure of seeing your patient Beti Garcia for follow up in the Pulmonary Department of [facility] on March 25, 2018, for further evaluation of primary Pulmonary Hypertension. As you are aware of the past medical history, I shall not elaborate at this time. For your convenience, please refer to the attached visit summary and diagnostic studies performed at this visit. Thank you very much for the pleasure of seeing this patient. If there are any further questions in this regard, please feel free to contact me. With best wishes, Pulmonary Hypertension Coordinator NB/lm Enclosure CBC AND DIFFERENTIAL Collected: 03/25/2018 Status: F Source: [place] 2:07 PM [facility] REPOSITORY TYPE CODE TESTS RESULT OUT OF REFERENCE UNITS RANGE LAB WBC 3.70-11.00 k/uL WBC 8.27 LAB RBC 3.90-5.20 m/uL RBC High 5.48 LAB HGB 11.5-15.5 g/dL Hemoglobin 15.3 LAB HCT 36.0-46.0 % Hematocrit 45.8 LAB MCV 80.0-100.0 fL MCV 83.6 LAB MCH 26.0-34.0 pG MCH 27.9 LAB MCHC 30.5-36.0 g/dL MCHC 33.4 LAB RDWCV 11.5-15.0 % RDW-CV 13.4 LAB PLTCT 150-400 k/uL Platelet Count 212 LAB MPV 9.0-12.7 fL MPV 10.4 LAB ANEUT % Neut% 72.6 LAB AANEUT 1.45-7.50 k/uL Abs Neut 5.99 LAB ALYMP % Lymph% 15.0 LAB AALYMP 1.00-4.00 k/uL Abs Lymph 1.24 LAB AMONO % Starr% 8.6 LAB AAMONO <0.87 k/uL Abs Starr 0.71 LAB AEOS % Eosin% 3.4 LAB AAEOS <0.46 k/uL Abs Eosin 0.28 LAB ABASO % Baso% 0.4 LAB AABASO <0.11 k/uL Abs Baso 0.03 LAB AUNRBC 0 /100 WBC NRBCs 0.0 LAB ABNRBC <0.01 k/uL Absolute nRBC <0.01 LAB DTYP DTYPE Auto Diff Performed By: #### CBCDIF, CMP, NTBNP #### [facility] [address] [place], [place] [address] COMP METABOLIC PANEL Collected: 03/25/2018 Status: F Source: [place] 2:07 PM [facility] REPOSITORY TYPE CODE TESTS RESULT OUT OF REFERENCE UNITS RANGE LAB TP 6.3-8.0 g/dL Low Protein, Total 6.2 LAB ALB 3.9-4.9 g/dL Albumin 4.3 LAB CA 8.5-10.2 mg/dL Calcium, Total 10.1 LAB TBIL 0.2-1.3 mg/dL Bilirubin, Total 0.5 LAB ALKP 34-123 U/L Alkaline Phosphatase 95 LAB AST 13-35 U/L AST 21 LAB GLU 74-99 mg/dL Glucose High 208 Result Comment: The [place] Diabetes Association (ADA) provides guidance for cutoff values for fasting glucose and random glucose. The ADA defines fasting as no caloric intake for at least 8 hours. Fas ting plasma glucose results between 100 to 125 mg/dL indicate increased risk for diabetes (prediabetes). Fasting plasma glucose results greater than or equal to 126 mg/dL meet the criteria for diagnosis of diabetes. In the absence of unequivocal hyperglycemia, results should be confirmed by repeat testing. In a patient with classic symptoms of hyperglycemia or hyperglycemic crisis, random plasma glucose results greater than or equal to 200 mg/dL meet the criteria for diagnosis of diabetes. Reference: Standards of Medical Care in Diabetes 2016, [place] [employer] Association. Diabetes Care. 2016.39(Suppl 1). LAB BUN 7-21 mg/dL BUN 9 LAB CRET 0.58-0.96 mg/dL Creatinine 0.59 LAB NA 136-144 mmol/L Sodium Low 128 LAB K 3.7-5.1 mmol/L Potassium 3.8 LAB CL 97-105 mmol/L Chloride Low 84 LAB CO2 22-30 mmol/L CO2 28 LAB AGAP 9-18 mmol/L Anion Gap 16 LAB ALT 7-38 U/L ALT 22 LAB GFRAA eGFR- Amer. >60 LAB GFRNAA . eGFR-All Other Races >60 Result Comment: eGFR (Estimated GFR) Units of measure: mL/min/1.73 meters squared eGFR is derived from the reexpressed MDRD Study equation using the following parameters: serum creatinine, age, gender and race. The creatinine assay has been calibrated to be traceable to IDMS. An eGFR <60 mL/min/1.73m2 for >3 months is consistent with chronic kidney disease. Refer to KDOQI guidelines for clinical interpretation. In patients with unstable renal function, e.g. those with acute kidney injury, the eGFR may not accurately reflect actual GFR. Performed By: #### CBCDIF, CMP, NTBNP #### [facility] [address] [place], [place] [address] NT PRO BNP Collected: 03/25/2018 Status: F Source: [place] 2:07 PM [facility] REPOSITORY TYPE CODE TESTS RESULT OUT OF REFERENCE UNITS RANGE LAB PBNP <125 pg/mL PRO B Natr 102 Peptide Performed By: #### CBCDIF, CMP, NTBNP #### [facility] [address] [place], [place] [id number] PROGRESS Observed: 03/25/2018 Status: COMPLETED Source: [place] 12:26 PM [facility] REPOSITORY HNO ID: [id number] Author: Caden (Knapsack Sprayer) Jay Service: (none) Author Type: Nurse Specialist Type: Progress Notes Filed: 03/26/2018 5:15 PM Note Text: Beti Garcia is a 63 year old female here for a follow up due to Pulmonary Hypertension. The patient has been treated with sildenafil and Letairis Pt currently complains of Palpitations and bouts of afib, SOB and leg swelling, Patient denies dizziness / light headedness and syncope MEDICAL /SURGICAL HISTORY: 1. 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 Comfortable at rest, but less than ordinary activity causes fatigue or dyspnea. PAST MEDICAL HISTORY Diagnosis Date - Agoraphobia with panic disorder - Anxiety - Atrial fib/flutter, transient - COPD (chronic obstructive pulmonary disease) (HCC) - Diabetes (HCC) - DVT (deep venous thrombosis) (HCC) - Lupus anticoagulant (LAC) with hemorrhagic disorder - Mixed hyperlipidemia - Obesity, unspecified - Phlebitis and thrombophlebitis of unspecified site - Pulmonary emboli (HCC) - Pulmonary embolism and infarction - Pulmonary hypertension (HCC) - Rosacea - TIA (transient ischemic attack) - Unspecified essential hypertension PAST SURGICAL HISTORY Procedure Laterality Date - CORRECT BUNION,SIMPLE - DANDC, DIAG AND/OR THERAPEUTIC - PAST SURGICAL HISTORY OF 08/12 vena cava filter placement - REMOVAL GALLBLADDER - REPAIR UMBILICAL DARIEN,<5Y/O,REDUC ALLERGIES: Nitrates; Adhesive Tape (Rosins) MEDICATIONS: Current Outpatient Prescriptions: ambrisentan (LETAIRIS) 10 mg tablet Take 1 tablet by mouth once daily. sildenafil (REVATIO) 20 mg tablet Take 60 mg by mouth three times daily. metFORMIN ER (FORTAMET) 500 mg 24 hr tablet Take 500 mg by mouth daily at bedtime. warfarin (COUMADIN) 1 mg tablet Take 1 tablet by mouth daily as directed. fluticasone-salmeterol (ADVAIR DISKUS) 250-50 mcg/dose dsdv Inhale 1 Puff as instructed twice daily. Rinse and gargle mouth with water after each use. pravastatin (PRAVACHOL) 40 mg tablet Take 1 tablet by mouth daily at bedtime. tolterodine (DETROL) 2 mg tablet Take 1 tablet by mouth twice daily. desvenlafaxine ER (PRISTIQ) 100 mg 24 hr tablet Take 1 tablet by mouth once daily. OLANZapine (ZYPREXA) 2.5 mg tablet Take 1 tablet by mouth daily at bedtime. spironolactone (ALDACTONE) 50 mg tablet Take 1 tablet by mouth once daily. furosemide (LASIX) 40 mg tablet Take 1 tablet by mouth twice daily. omeprazole (PRILOSEC) 20 mg capsule Take 20 mg by mouth once daily. Historic med potassium chloride SR 20 mEq tablet Take 1 tablet by mouth three times daily. warfarin (COUMADIN) 3 mg tablet Take 1 tablet by mouth daily as directed. Diltiazem HCl (CARDIZEM CD) 360 mg 24 hr capsule Take 1 capsule by mouth once daily. alprazolam(XANAX 1 MG TAB) 2-3 tablets per day for anxiety ferrous sulfate(SLOW FE 142 MG (45 MG IRON) TAB) one daily metOLAzone (ZAROXOLYN) 2.5 mg tablet 1 tablet daily MWF as needed based on weight gain COMPOUNDED PRESCRIPTION OXYGEN uses 6 L oxygen per simple green mask 24 hours per day. Miscellaneous [facility] [place]: Basic Metabolic Panel. Please fax results to [phone]. DX: V58.69 COMPOUNDED PRESCRIPTION LABWORK: Basic Metabolic Panel. Please fax results to [phone]. DX: V58.69 No current facility-administered medications for this visit. CURRENT OXYGEN USE: 6 liters Oxygen - uses simple green mask because of nasal septum. She has a 10 liter concentrator and uses Liquid oxygen for travel because she is not able to lift heavy tanks FLUID RESTRICTION: no DAILY FLUID- 8-10 16 oz glasses of diet coke (2-3) and water SODIUM RESTRICTED DIET: TANISHA SIDE OF EFFECTS OF MEDICATION: none REVIEW OF SYSTEMS: GENERAL: No weight loss, malaise or fevers HEENT: Negative for frequent or significant headaches, No changes in hearing or vision, no nose bleeds or other nasal problems RESPIRATORY: Shortness of breath CARDIOVASCULAR: Shortness of breath, palpitations GI: No nausea, vomiting, or diarrhea SKIN: Eczema PSYCH: Negative for sleep disturbance, mood disorder and recent psychosocial stressors. NEURO: No history of headaches, syncope, paralysis, seizures or tremors All other reviewed and negative other than HPI. PSYCHOSOCIAL: Family support: Yes Financial concerns: Yes- As of Apr 24 her pollo for [employer] through [facility] is ending. She is concerned that she cannot get another pollo. She feels she would be unable to continue the letWeDeliver if this is the case. TESTING: WALK 6: InspO2* ? SpO2% ? ? HR Activity ?Feet ?Time ? MPH ?Flag RA ? 95 ? ? 87 resting RA ? 86 ? ?112 walking, usual pace ? ?200 ?1.50 ?1.52 NC2 ?99 ? ? 90 resting NC2 ?87 ? ?118 walking, usual pace ? ?340 ?2.50 ?1.55 NC3 ?99 ? ? 90 resting NC3 ?88 ? ?120 walking, usual pace ? ?340 ?2.50 ?1.55 NC4 ? 100 ? ? 97 resting NC4 ?91 ? ?125 walking, usual pace ? ?420 ?3.00 ?1.59 * RA = room air, NC2 = O2 by nasal cannula at 2 LPM, ? ? ?TT2=O2 by trans-tracheal catherter at 2 LPM, etc. PFT: ADALID/LUNG VOL/DLCO ([id number]) - ordered on 05/09/14 Pred LLN Pre- % Post- % % [facility] Date [id number] Time 01:14PM 02:01PM Height 163 163 Weight 108.9 108.9 FVC 3.33 2.63 2.29 69 2.28 68 -1 FEV 1 2.57 1.98 1.42 55 1.54 60 8 FEV1%F 78.06 68.27 61.91 79 67.58 87 9 FEV 3 2.92 2.30 1.80 62 1.91 66 6 FEV3%E 93.11 87.75 78.74 85 83.95 90 7 FEV6 2.03 2.13 5 PEF 5.75 4.02 4.62 80 4.93 86 7 MEF 50 3.24 2.07 0.81 25 1.08 33 33 FIF 50 4.14 3.52 -15 F25/75 2.36 1.12 0.51 22 0.72 30 41 FE%FIF 19.54 30.57 56 FET 13.98 10.90 -22 FRCpl 2.87 1.81 3.34 116 ERV 0.31 RV 2.00 1.22 3.04 152 VC 3.33 2.63 2.46 74 TLC 5.08 4.00 5.50 108 RV%TLC 39.31 28.31 55.20 140 DLCO 21.69 15.18 15.88 73 DL/VA 4.44 3.12 4.00 90 VA 5.09 3.99 3.98 78 GABINO 3.33 2.63 2.20 66 28.2002 Test no. 3 05/09/2014 06:18:09PM PRE: FEV1 AND FVC are repeatable Extrapolated volume greater than ATS allows; FEV1 may not be valid. POST: ATS acceptability and repeatability standards for spirometry met. Medications and Allergies were reviewed for possible drug interactions per policy MM-102. No contraindications or sensitivities were noted. Respiratory meds taken: symbicort / 16 hours before testing. 4 puffs albuterol (360 mcg) delivered by MDI via valved holding chamber, HRpre= 72/min, HRpost= 72/min. All lung volume repeatability criteria met. Unable to obtain valid lung volumes by helium dilution; patient was unable to maintain airtight seal during equilibration. DLCO not hemoglobin corrected. //NC Impression: 1. Baseline spirometry indicates moderately severe airflow obstruction. 2. There is no significant bronchodilator response. 3. RV is elevated suggesting air trapping. Air trapping may be observed with moderate to severe airflow obstruction. 4. Diffusing capacity is normal. Fellow: Jani Guillermo M.D. I have reviewed the findings, made appropriate revisions and agree with the transcribed interpretation. Signature: Staff Reviewer: Alan Land M.D. PFT: ADALID/LUNG VOL/DLCO ([id number]) - ordered on 5/10/13 Pred LLN Pre- % Date [id number] Time 10:48AM Height 163 Weight 126 FVC 3.38 2.68 2.10 62 FEV 1 2.63 2.04 1.44 55 FEV1%F 78.48 68.69 68.34 87 FEV 3 2.97 2.35 1.84 62 FEV3%E 93.43 88.07 87.62 94 FEV6 2.00 PEF 5.80 4.07 5.25 91 MEF 50 3.30 2.12 1.17 35 FIF 50 3.96 F25/75 2.44 1.20 0.77 32 FE%FIF 29.43 FET 13.48 FRCpl 2.87 1.80 3.28 114 ERV 0.18 RV 1.96 1.18 3.10 158 VC 3.38 2.68 2.36 70 TLC 5.08 4.00 5.46 108 RV%TLC 38.48 27.48 56.72 147 DLCO 21.91 15.40 18.23 83 DL/VA 4.47 3.15 4.56 102 VA 5.09 3.99 4.00 78 GABINO 3.38 2.68 2.03 60 28.4223 Test no. 1 09/17/2012 12:58:43PM ATS acceptability and repeatability standards for spirometry met. All lung volume repeatability criteria met. ATS acceptability and repeatability standards for DLCO met. No hemoglobin available for correction of DLCO. Dlco sample volume reduced to 800 ml. /DESTIN Spirometry indicates moderately severe airflow obstruction. The RV%TLC and RV are elevated suggesting air trapping. The diffusing capacity is normal. Fellow: Gerardo Christian M.D. I have reviewed the findings, made appropriate revisions and agree with the transcribed interpretation. Signature: Staff Reviewer: Alan Land M.D. LABWORK: Component Latest Ref Rng AND Units 03/25/2018 WBC 3.70 - 11.00 k/uL 8.27 RBC 3.90 - 5.20 m/uL 5.48 (H) Hemoglobin 11.5 - 15.5 g/dL 15.3 Hematocrit 36.0 - 46.0 % 45.8 MCV 80.0 - 100.0 fL 83.6 MCH 26.0 - 34.0 pG 27.9 MCHC 30.5 - 36.0 g/dL 33.4 RDW-CV 11.5 - 15.0 % 13.4 Platelet Count 150 - 400 k/uL 212 MPV 9.0 - 12.7 fL 10.4 Neut% % 72.6 Abs Neut (ANC) 1.45 - 7.50 k/uL 5.99 Lymph% % 15.0 Abs Lymph 1.00 - 4.00 k/uL 1.24 Starr% % 8.6 Abs Starr <0.87 k/uL 0.71 Eosin% % 3.4 Abs Eosin <0.46 k/uL 0.28 Baso% % 0.4 Abs Baso <0.11 k/uL 0.03 Nucleated Reds 0 /100 WBC 0.0 Absolute nRBC <0.01 k/uL <0.01 Diff Type Auto Diff Protein, Total 6.3 - 8.0 g/dL 6.2 (L) Albumin 3.9 - 4.9 g/dL 4.3 Calcium 8.5 - 10.2 mg/dL 10.1 Bilirubin, Total 0.2 - 1.3 mg/dL 0.5 Alkaline Phosphatase 34 - 123 U/L 95 AST 13 - 35 U/L 21 Glucose 74 - 99 mg/dL 208 (H) BUN 7 - 21 mg/dL 9 Creatinine 0.58 - 0.96 mg/dL 0.59 Sodium 136 - 144 mmol/L 128 (L) Potassium 3.7 - 5.1 mmol/L 3.8 Chloride 97 - 105 mmol/L 84 (L) CO2 22 - 30 mmol/L 28 Anion Gap 9 - 18 mmol/L 16 ALT 7 - 38 U/L 22 eGFR- >60 eGFR-All Other Races . >60 NT Pro BNP <125 pg/mL 102 I have personally interviewed and examined the patient. Caden Willett, RN MSN SENIOR STATISTICIAN.[employer] PHYSICAL EXAM: GENERAL: alert and active in no apparent distress CARDIOVASCULAR : Regular Rate and Rhythm without murmurs or clicks LUNGS: clear to auscultation- slightly diminished on LLL EXTREMITIES: Normal exam of the extremities. No clubbing, cyanosis, or edema. NEUROLOGICAL : Awake, alert and oriented x 3 SKIN : half dollar size red area on r LE- no drainage ASSESSMENT: ASSESSMENT/PLAN: 1. Pulmonary hypertension (HCC) - ICD9: 416.8, ICD10: I27.20 (primary diagnosis) No edema. She reports no additional increase in UO when she takes metolazone. No recent labs. She prefers to wait on consideration of BPA. Her concern is needing to be without coumadin and also spending the night in the hospital after BPA would create a lot of anxiety for her. She understands the need to stay overnight. - METOLAZONE 2.5 MG TABLET 2. Encounter for long-term (current) use of high-risk medication - ICD9: V58.69, ICD10: Z79.899 Need to evaluate K+ and kidney function to determine K+ dose and diuretic effect - COMP METABOLIC PANEL - NT PRO BNP - CBC + DIFF Beti Garcia is a 63 year old with PH on Sildenafil and Ambrisentan. CurrentlyPULMONARY HYPERTENSION DUE TO CHRONIC THROMBOTIC AND/OR EMBOLIC DISEASE: Thromboembolic obstruction of distal pulmonary arteries Class III: Marked limitation of activity. Comfortable at rest, but less than ordinary activity causes fatigue or dyspnea. She is stable on current therapy. PLAN: Take metolazone only if needed with weight gain. Fax Oxygen script to [facility] [phone] for Continue current PH therapy. Follow up in 1-2 months with the following tests: Echo without contrast,, 6 Min Walk Test, and Labs, Caden Willett RN MSN SENIOR STATISTICIAN.[facility] Supervising Physician:Dr. Abigail WRIGHT Observed: 03/25/2018 Status: COMPLETED Source: [place] 11:25 AM [facility] REPOSITORY Office Visit (PULMMN) BETI GARCIA ([id number]) 1955 F Date Time Provider Department 03/25/18 11:25 AM CADEN WILLETT ([facility]) PULMMN During your visit today, we recorded the following information about you: Temperature Pulse Respiration Blood pressure 99.3 degrees 95/minute 14/minute 139/55 Weight Height 90.7 kg 1.6 m Caden Willett RN MSN SENIOR STATISTICIAN.[facility] 03/26/2018 5:15 PM Signed Beti Garcia is a 63 year old female here for a follow up due to Pulmonary Hypertension. The patient has been treated with sildenafil and Letairis Pt currently complains of Palpitations and bouts of afib, SOB and leg swelling, Patient denies dizziness / light headedness and syncope MEDICAL /SURGICAL HISTORY: 1. 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 Comfortable at rest, but less than ordinary activity causes fatigue or dyspnea. PAST MEDICAL HISTORY Diagnosis Date - Agoraphobia with panic disorder - Anxiety - Atrial fib/flutter, transient - COPD (chronic obstructive pulmonary disease) (HCC) - Diabetes (HCC) - DVT (deep venous thrombosis) (HCC) - Lupus anticoagulant (LAC) with hemorrhagic disorder - Mixed hyperlipidemia - Obesity, unspecified - Phlebitis and thrombophlebitis of unspecified site - Pulmonary emboli (HCC) - Pulmonary embolism and infarction - Pulmonary hypertension (HCC) - Rosacea - TIA (transient ischemic attack) - Unspecified essential hypertension PAST SURGICAL HISTORY Procedure Laterality Date - CORRECT BUNION,SIMPLE - DANDC, DIAG AND/OR THERAPEUTIC - PAST SURGICAL HISTORY OF 08/12 vena cava filter placement - REMOVAL GALLBLADDER - REPAIR UMBILICAL DARIEN,<5Y/O,REDUC ALLERGIES: Nitrates; Adhesive Tape (Rosins) MEDICATIONS: Current Outpatient Prescriptions: ambrisentan (LETAIRIS) 10 mg tablet Take 1 tablet by mouth once daily. sildenafil (REVATIO) 20 mg tablet Take 60 mg by mouth three times daily. metFORMIN ER (FORTAMET) 500 mg 24 hr tablet Take 500 mg by mouth daily at bedtime. warfarin (COUMADIN) 1 mg tablet Take 1 tablet by mouth daily as directed. fluticasone-salmeterol (ADVAIR DISKUS) 250-50 mcg/dose dsdv Inhale 1 Puff as instructed twice daily. Rinse and gargle mouth with water after each use. pravastatin (PRAVACHOL) 40 mg tablet Take 1 tablet by mouth daily at bedtime. tolterodine (DETROL) 2 mg tablet Take 1 tablet by mouth twice daily. desvenlafaxine ER (PRISTIQ) 100 mg 24 hr tablet Take 1 tablet by mouth once daily. OLANZapine (ZYPREXA) 2.5 mg tablet Take 1 tablet by mouth daily at bedtime. spironolactone (ALDACTONE) 50 mg tablet Take 1 tablet by mouth once daily. furosemide (LASIX) 40 mg tablet Take 1 tablet by mouth twice daily. omeprazole (PRILOSEC) 20 mg capsule Take 20 mg by mouth once daily. Historic med potassium chloride SR 20 mEq tablet Take 1 tablet by mouth three times daily. warfarin (COUMADIN) 3 mg tablet Take 1 tablet by mouth daily as directed. Diltiazem HCl (CARDIZEM CD) 360 mg 24 hr capsule Take 1 capsule by mouth once daily. alprazolam(XANAX 1 MG TAB) 2-3 tablets per day for anxiety ferrous sulfate(SLOW FE 142 MG (45 MG IRON) TAB) one daily metOLAzone (ZAROXOLYN) 2.5 mg tablet 1 tablet daily MWF as needed based on weight gain COMPOUNDED PRESCRIPTION OXYGEN uses 6 L oxygen per simple green mask 24 hours per day. [facility]: Basic Metabolic Panel. Please fax results to [phone]. DX: V58.69 COMPOUNDED PRESCRIPTION LABWORK: Basic Metabolic Panel. Please fax results to [phone]. DX: V58.69 No current facility-administered medications for this visit. CURRENT OXYGEN USE: 6 liters Oxygen - uses simple green mask because of nasal septum. She has a 10 liter concentrator and uses Liquid oxygen for travel because she is not able to lift heavy tanks FLUID RESTRICTION: no DAILY FLUID- 8-10 16 oz glasses of diet coke (2-3) and water SODIUM RESTRICTED DIET: TANISHA SIDE OF EFFECTS OF MEDICATION: none REVIEW OF SYSTEMS: GENERAL: No weight loss, malaise or fevers HEENT: Negative for frequent or significant headaches, No changes in hearing or vision, no nose bleeds or other nasal problems RESPIRATORY: Shortness of breath CARDIOVASCULAR: Shortness of breath, palpitations GI: No nausea, vomiting, or diarrhea SKIN: Eczema PSYCH: Negative for sleep disturbance, mood disorder and recent psychosocial stressors. NEURO: No history of headaches, syncope, paralysis, seizures or tremors All other reviewed and negative other than HPI. PSYCHOSOCIAL: Family support: Yes Financial concerns: Yes- As of Apr 24 her pollo for [employer] through [employer] is ending. She is concerned that she cannot get another pollo. She feels she would be unable to continue the letairis if this is the case. TESTING: WALK 6: InspO2* ? SpO2% ? ? HR Activity ?Feet ?Time ? MPH ?Flag RA ? 95 ? ? 87 resting RA ? 86 ? ?112 walking, usual pace ? ?200 ?1.50 ?1.52 NC2 ?99 ? ? 90 resting NC2 ?87 ? ?118 walking, usual pace ? ?340 ?2.50 ?1.55 NC3 ?99 ? ? 90 resting NC3 ?88 ? ?120 walking, usual pace ? ?340 ?2.50 ?1.55 NC4 ? 100 ? ? 97 resting NC4 ?91 ? ?125 walking, usual pace ? ?420 ?3.00 ?1.59 * RA = room air, NC2 = O2 by nasal cannula at 2 LPM, ? ? ?TT2=O2 by trans-tracheal catherter at 2 LPM, etc. PFT: ADALID/LUNG VOL/DLCO ([id number]) - ordered on 05/09/14 Pred LLN Pre- % Post- % % [facility] Date [id number] Time 01:14PM 02:01PM Height 163 163 Weight 108.9 108.9 FVC 3.33 2.63 2.29 69 2.28 68 -1 FEV 1 2.57 1.98 1.42 55 1.54 60 8 FEV1%F 78.06 68.27 61.91 79 67.58 87 9 FEV 3 2.92 2.30 1.80 62 1.91 66 6 FEV3%E 93.11 87.75 78.74 85 83.95 90 7 FEV6 2.03 2.13 5 PEF 5.75 4.02 4.62 80 4.93 86 7 MEF 50 3.24 2.07 0.81 25 1.08 33 33 FIF 50 4.14 3.52 -15 F25/75 2.36 1.12 0.51 22 0.72 30 41 FE%FIF 19.54 30.57 56 FET 13.98 10.90 -22 FRCpl 2.87 1.81 3.34 116 ERV 0.31 RV 2.00 1.22 3.04 152 VC 3.33 2.63 2.46 74 TLC 5.08 4.00 5.50 108 RV%TLC 39.31 28.31 55.20 140 DLCO 21.69 15.18 15.88 73 DL/VA 4.44 3.12 4.00 90 VA 5.09 3.99 3.98 78 GABINO 3.33 2.63 2.20 66 28.2002 Test no. 3 05/09/2014 06:18:09PM PRE: FEV1 AND FVC are repeatable Extrapolated volume greater than ATS allows; FEV1 may not be valid. POST: ATS acceptability and repeatability standards for spirometry met. Medications and Allergies were reviewed for possible drug interactions per policy MM-102. No contraindications or sensitivities were noted. Respiratory meds taken: symbicort / 16 hours before testing. 4 puffs albuterol (360 mcg) delivered by MDI via valved holding chamber, HRpre= 72/min, HRpost= 72/min. All lung volume repeatability criteria met. Unable to obtain valid lung volumes by helium dilution; patient was unable to maintain airtight seal during equilibration. DLCO not hemoglobin corrected. //NC Impression: 1. Baseline spirometry indicates moderately severe airflow obstruction. 2. There is no significant bronchodilator response. 3. RV is elevated suggesting air trapping. Air trapping may be observed with moderate to severe airflow obstruction. 4. Diffusing capacity is normal. Fellow: Jani Guillermo M.D. I have reviewed the findings, made appropriate revisions and agree with the transcribed interpretation. Signature: Staff Reviewer: Alan Land M.D. PFT: ADALID/LUNG VOL/DLCO ([id number]) - ordered on 09/17/12 [facility] Pre- % Date [id number] Time 10:48AM Height 163 Weight 126 FVC 3.38 2.68 2.10 62 FEV 1 2.63 2.04 1.44 55 FEV1%F 78.48 68.69 68.34 87 FEV 3 2.97 2.35 1.84 62 FEV3%E 93.43 88.07 87.62 94 FEV6 2.00 PEF 5.80 4.07 5.25 91 MEF 50 3.30 2.12 1.17 35 FIF 50 3.96 F25/75 2.44 1.20 0.77 32 FE%FIF 29.43 FET 13.48 FRCpl 2.87 1.80 3.28 114 ERV 0.18 RV 1.96 1.18 3.10 158 VC 3.38 2.68 2.36 70 TLC 5.08 4.00 5.46 108 RV%TLC 38.48 27.48 56.72 147 DLCO 21.91 15.40 18.23 83 DL/VA 4.47 3.15 4.56 102 VA 5.09 3.99 4.00 78 GABINO 3.38 2.68 2.03 60 28.4223 Test no. 1 09/17/2012 12:58:43PM ATS acceptability and repeatability standards for spirometry met. All lung volume repeatability criteria met. ATS acceptability and repeatability standards for DLCO met. No hemoglobin available for correction of DLCO. Dlco sample volume reduced to 800 ml. /DESTIN Spirometry indicates moderately severe airflow obstruction. The RV%TLC and RV are elevated suggesting air trapping. The diffusing capacity is normal. Fellow: Gerardo Christian M.D. I have reviewed the findings, made appropriate revisions and agree with the transcribed interpretation. Signature: Staff Reviewer: Alan Land M.D. LABWORK: Component Latest Ref Rng AND Units 03/25/2018 WBC 3.70 - 11.00 k/uL 8.27 RBC 3.90 - 5.20 m/uL 5.48 (H) Hemoglobin 11.5 - 15.5 g/dL 15.3 Hematocrit 36.0 - 46.0 % 45.8 MCV 80.0 - 100.0 fL 83.6 MCH 26.0 - 34.0 pG 27.9 MCHC 30.5 - 36.0 g/dL 33.4 RDW-CV 11.5 - 15.0 % 13.4 Platelet Count 150 - 400 k/uL 212 MPV 9.0 - 12.7 fL 10.4 Neut% % 72.6 Abs Neut (ANC) 1.45 - 7.50 k/uL 5.99 Lymph% % 15.0 Abs Lymph 1.00 - 4.00 k/uL 1.24 Starr% % 8.6 Abs Starr <0.87 k/uL 0.71 Eosin% % 3.4 Abs Eosin <0.46 k/uL 0.28 Baso% % 0.4 Abs Baso <0.11 k/uL 0.03 Nucleated Reds 0 /100 WBC 0.0 Absolute nRBC <0.01 k/uL <0.01 Diff Type Auto Diff Protein, Total 6.3 - 8.0 g/dL 6.2 (L) Albumin 3.9 - 4.9 g/dL 4.3 Calcium 8.5 - 10.2 mg/dL 10.1 Bilirubin, Total 0.2 - 1.3 mg/dL 0.5 Alkaline Phosphatase 34 - 123 U/L 95 AST 13 - 35 U/L 21 Glucose 74 - 99 mg/dL 208 (H) BUN 7 - 21 mg/dL 9 Creatinine 0.58 - 0.96 mg/dL 0.59 Sodium 136 - 144 mmol/L 128 (L) Potassium 3.7 - 5.1 mmol/L 3.8 Chloride 97 - 105 mmol/L 84 (L) CO2 22 - 30 mmol/L 28 Anion Gap 9 - 18 mmol/L 16 ALT 7 - 38 U/L 22 eGFR- >60 eGFR-All Other Races . >60 NT Pro BNP <125 pg/mL 102 I have personally interviewed and examined the patient. Caden Willett, RN MSN SENIOR STATISTICIAN.[employer] PHYSICAL EXAM: GENERAL: alert and active in no apparent distress CARDIOVASCULAR : Regular Rate and Rhythm without murmurs or clicks LUNGS: clear to auscultation- slightly diminished on LLL EXTREMITIES: Normal exam of the extremities. No clubbing, cyanosis, or edema. NEUROLOGICAL : Awake, alert and oriented x 3 SKIN : half dollar size red area on r LE- no drainage ASSESSMENT: ASSESSMENT/PLAN: 1. Pulmonary hypertension (HCC) - ICD9: 416.8, ICD10: I27.20 (primary diagnosis) No edema. She reports no additional increase in UO when she takes metolazone. No recent labs. She prefers to wait on consideration of BPA. Her concern is needing to be without coumadin and also spending the night in the hospital after BPA would create a lot of anxiety for her. She understands the need to stay overnight. - METOLAZONE 2.5 MG TABLET 2. Encounter for long-term (current) use of high-risk medication - ICD9: V58.69, ICD10: Z79.899 Need to evaluate K+ and kidney function to determine K+ dose and diuretic effect - COMP METABOLIC PANEL - NT PRO BNP - CBC + DIFF Beti Garcia is a 63 year old with PH on Sildenafil and Ambrisentan. CurrentlyPULMONARY HYPERTENSION DUE TO CHRONIC THROMBOTIC AND/OR EMBOLIC DISEASE: Thromboembolic obstruction of distal pulmonary arteries Class III: Marked limitation of activity. Comfortable at rest, but less than ordinary activity causes fatigue or dyspnea. She is stable on current therapy. PLAN: Take metolazone only if needed with weight gain. Fax Oxygen script to [facility] [phone] for Continue current PH therapy. Follow up in 1-2 months with the following tests: Echo without contrast,, 6 Min Walk Test, and Labs, Caden Willett, RN MSN SENIOR STATISTICIAN.[employer] Supervising Physician:Dr. Ochoa Referring Provider: CADEN WILLETT ([facility]) [[id number]] Allergies As of Date: 03/25/2018 Noted Allergy Reaction NITRATES 09/17/2012 14 - Other: See Comments ADHESIVE TAPE (ROSINS) 11/06/2003 Date Reviewed: 03/25/2018 Reviewed by: Fatimah Madrigal Ma - Fully Assessed Reason for Visit: Management Of High Risk Medications [1946] Reason For Visit History Recorded Primary Visit Diagnosis:Pulmonary hypertension (HCC) [I27.20] Other Visit Diagnosis:Encounter for long-term (current) use of high-risk medication [Z79.899] Order(s):COMP METABOLIC PANEL [SQCMP] Order #: [id number] FUTURE NT PRO BNP [SQNTBNP] Order #: [id number] FUTURE CBC + DIFF [SQCBCDIF] Order #: [id number] FUTURE CBC + DIFF [SQCBCDIF] Order #: [id number] FUTURE COMP METABOLIC PANEL [SQCMP] Order #: [id number] FUTURE NT PRO BNP [SQNTBNP] Order #: [id number] FUTURE Prescriptions as of 03/25/2018 Sig: AMBRISENTAN 10 MG TABLET Take 1 tablet by mouth once d* SILDENAFIL (ANTIHYPERTENSIVE)* Take 60 mg by mouth three harsha* METFORMIN ER 500 MG TABLET,EX* Take 500 mg by mouth daily at* WARFARIN 1 MG TABLET Take 1 tablet by mouth daily * FLUTICASONE 250 MCG-SALMETERO* Inhale 1 Puff as instructed t* PRAVASTATIN 40 MG TABLET Take 1 tablet by mouth daily * TOLTERODINE 2 MG TABLET Take 1 tablet by mouth twice * DESVENLAFAXINE SUCCINATE ER 1* Take 1 tablet by mouth once d* OLANZAPINE 2.5 MG TABLET Take 1 tablet by mouth daily * SPIRONOLACTONE 50 MG TABLET Take 1 tablet by mouth once d* FUROSEMIDE 40 MG TABLET Take 1 tablet by mouth twice * OMEPRAZOLE 20 MG CAPSULE,FEMI* Take 20 mg by mouth once jewel* POTASSIUM CHLORIDE ER 20 MEQ * Take 1 tablet by mouth three * WARFARIN 3 MG TABLET Take 1 tablet by mouth daily * * DILTIAZEM CD 360 MG CAPSULE,E* Take 1 capsule by mouth once * * XANAX 1 MG TABLET 2-3 tablets per day for anxie* * SLOW FE 142 MG (45 MG IRON) T* one daily METOLAZONE 2.5 MG TABLET 1 tablet daily MWF as needed * COMPOUNDED PRESCRIPTION OXYGEN uses 6 L oxygen per s* MISCELLANEOUS MEDICAL SUPPLY * LABWORK: Basic Metabolic Pane* COMPOUNDED PRESCRIPTION LABWORK: Basic Metabolic Pane* Problem List As Of Date 03/25/2018 Noted Resolved Morbid obesity (HCC) [E66.01] INVALID FOR* More... 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 Proteinuria [R80.9] INVALID FOR* Lupus anticoagulant positive [R76.0] INVALID FOR* More... Pulmonary hypertension (HCC) [I27.20] INVALID FOR* More... 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 Hypertension [I10] INVALID FOR* More... Diabetes mellitus (HCC) [E11.9] INVALID FOR* More... Depression [F32.9] INVALID FOR* More... Medications Discontinued During This Encounter hydrocortisone (ANUSOL-HC) 2.5 % rec* 1 Tu* 0 06/18/2015 03/25/2018 Route: RECTAL Si application by RECTAL route twice daily. Disc: Discontinued by Patient metOLAzone 5 mg tablet 05/31/2012 03/25/2018 Class: Historical Med Si.5 mg. one tablet on Thursday and thursday Disc: Dosage adjustment nasal ointment, CCHS, oint 60 g 1 02/13/2015 03/25/2018 Route: TOPICAL Sig: Apply 1 application to affected area twice daily. Disc: Discontinued by Patient Encounter Status:Closed by CADEN DIAZ on 03/26/18 PROGRESS Observed: 03/18/2018 Status: COMPLETED Source: [place] 2:36 PM [facility] REPOSITORY O ID: [id number] Author: Bucky House Service: (none) Author Type: (none) Type: Progress Notes Filed: 03/18/2018 2:36 PM Note Text: Completed physician portion of [employer] patient assistance forms and mailed to patient to complete and mail to [employer] for patient assistance on [employer] for 2019. Patient is aware forms are on the way. 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 [address] [place] [address] [place] [address] OFFICE VISIT Date of Service: 03/15/18 MR#: [id number] Acct: [id number] Name: KRZYSZTOFJOAQUINABETI Sandra Rep #: [id number] : 1955 Provider: Darya Marquez MD Age/Sex: 63/F Location: [facility] Status: Signed Intake Intake Visit Reasons: EAR Chief Complaint: Right ear pressure Allergies nitroglycerin Adverse Reaction (Verified 03/03/18 13:21) Other Medications Ambrisentan [Letairis] 10 mg PO DAILY 04/21/16 [History Confirmed 03/03/18] Ferrous Sulfate [Slow Release Iron] 47.5 mg PO QHS 04/21/16 [History Confirmed 03/03/18] Olanzapine [Zyprexa] 2.5 mg PO DAILY 04/21/16 [History Confirmed 03/03/18] Omeprazole [Prilosec] 20 mg PO DAILY 04/21/16 [History Confirmed 03/03/18] Oxygen, Home [Home Oxygen] 5 l NASAL CONT 04/21/16 [History Confirmed 03/03/18] cholecalciferol (vitamin D3) 2,000 unit capsule 2,000 unit PO ONCE 07/29/17 [History Confirmed 03/03/18] metformin ER 500 mg tablet,extended release 24 hr 500 mg PO QDAY 07/29/17 [History Confirmed 03/03/18] diltiazem ER 360 mg tablet,extended release 24 hr 360 mg PO DAILY #90 tab 08/26/17 [Rx Confirmed 03/03/18] fluticasone 250 mcg-salmeterol 50 mcg/dose blistr powdr for inhalation 1 inh INHALATION DAILY #90 ea 08/26/17 [Rx Confirmed 03/03/18] potassium chloride ER 20 mEq tablet,extended release(part/cryst) 20 meq PO TID #270 tab 08/26/17 [Rx Confirmed 03/03/18] spironolactone 50 mg tablet 50 mg PO DAILY #90 tab 08/26/17 [Rx Confirmed 03/03/18] tolterodine ER 2 mg capsule,extended release 24 hr 2 mg PO BID #60 cap 10/07/17 [Rx Confirmed 03/03/18] ascorbic acid (vitamin C) 1,000 mg tablet 1 g PO QDAY tab 11/09/17 [History Confirmed 03/03/18] warfarin 3 mg tablet 3 mg PO DAILY tab 11/09/17 [History Confirmed 03/03/18] desvenlafaxine succinate ER 100 mg tablet,extended release 24 hr 100 mg PO DAILY #90 tab 12/09/17 [Rx Confirmed 03/03/18] pravastatin 40 mg tablet 40 mg PO QHS #90 tab 01/04/18 [Rx Confirmed 03/03/18] warfarin 1 mg tablet 1 mg PO QTUTHSASU #30 tab 01/08/18 [Rx Confirmed 03/03/18] triamcinolone acetonide 0.5 % topical cream 1 applic TOPICAL BID #454 g 02/06/18 [Rx Confirmed 03/03/18] sulfamethoxazole 800 mg-trimethoprim 160 mg tablet 1 tab PO BID #14 tab 02/09/18 [Rx Confirmed 03/03/18] alprazolam 1 mg tablet 1 mg PO BID #60 tab 02/25/18 [Rx Confirmed 03/03/18] fluticasone 50 mcg/actuation nasal spray,suspension 2 spray INTRANASAL DAILY #19.8 g 02/25/18 [Rx Confirmed 03/03/18] furosemide 40 mg tablet 40 mg PO BID #180 tab 02/25/18 [Rx Confirmed 03/03/18] metolazone 2.5 mg tablet 2.5 mg PO DAILY #90 tab 02/25/18 [Rx Confirmed 03/03/18] PFSH Medical History Primary pulmonary hypertension (PPH) (Chronic) COPD (chronic obstructive pulmonary disease) (Chronic) Claustrophobia (Chronic) Anxiety (Chronic) Depression (Chronic) TIA (transient ischemic attack) (Acute) Type 2 diabetes mellitus (Chronic) Atrial fibrillation (Chronic) Lupus anticoagulant disorder (Chronic) Pulmonary arterial hypertension (Chronic) Surgical History History of cholecystectomy (Acute) History of tonsillectomy (Acute) history of bunion surgery (Acute) Family History Mother COPD (chronic obstructive pulmonary disease) Cancer melanoma Father Heart disease Alcoholism Grandmother Cancer Grandfather Parkinsons disease Social History Smoking Status: Former smoker HPI HPI Chief Complaint: Right ear pressure Details: BETI GARCIA, is a 63 F who presents to the office today for follow-up of right ear pressure/fullness. Was seen about 2 weeks ago and started on antibiotics for possible acute on chronic sinusitis. Symptoms however have not improved. She has also noted difficulty hearing off of her right ear. Exam Const General: cooperative, no acute distress Orientation: alert, awake, oriented x3 HENTX Head: atraumatic, normocephalic Ears: TM's normal bilaterally, external ears normal Resp Effort AND Inspection: normal respiratory effort, able to speak in complete sentences Auscultation: Bilateral: Clear to Auscultation Cardio Rate: regular rate Rhythm: regular rhythm Heart Sounds: S1 normal, S2 normal Neuro General: alert, awake, oriented x3, moves all extremities, CN's II-XI intact bilaterally Assessment AND Plan 1. Sensation of fullness in right ear H93.8X1 Plan Said to have been ongoing for about 2 weeks. No significant improvement with management of suspected acute on chronic sinusitis. Has also noted difficulty hearing. Refer to ENT. Orders Referrals: 2. Chronic sinusitis J32.9 Plan Symptoms are said to be stable at this time. Surgery had been recommended in the past however patient declined. ENT referral as above. This note was generated with [employer] dictation software. It may contain incorrect words, spelling, and punctuation that were not noted in checking the note before signing. Plan Detail Other Orders Referrals: Coding Level of Care Code Off vis,est,level 3 Diagnoses Sensation of fullness in right ear H93.8X1 Chronic sinusitis J32.9 03/16/18 1648 <Electronically signed by Darya Marquez MD> Date Darya Marquez MD Cosigner Signature: Date (if applicable) CC: INTERNAL MEDICINE Observed: 03/03/2018 Status: F Source: [place] OFFICE VISIT 5:[address] [facility] Internal Medicine [address] [place] [address] OFFICE VISIT Date of Service: 03/03/18 MR#: [id number] Acct: [id number] Name: BETI GARCIA Rep #: [id number] : 1955 Provider: Parrish Calix NP Age/Sex: 63/F Location: [facility] [place] Status: Signed Intake Vital Signs03/03/18 Blood Pressure 109/71 03/03/18 Blood Pressure Location Rt brachial Intake Visit Reasons: Sinus infection Chief Complaint: Ear pressure AND Sinus problems Is patient in pain?: No Allergies nitroglycerin Adverse Reaction (Verified 03/03/18 13:21) Other Medications Ambrisentan [Letairis] 10 mg PO DAILY 04/21/16 [History Confirmed 03/03/18] Ferrous Sulfate [Slow Release Iron] 47.5 mg PO QHS 04/21/16 [History Confirmed 03/03/18] Olanzapine [Zyprexa] 2.5 mg PO DAILY 04/21/16 [History Confirmed 03/03/18] Omeprazole [Prilosec] 20 mg PO DAILY 04/21/16 [History Confirmed 03/03/18] Oxygen, Home [Home Oxygen] 5 l NASAL CONT 04/21/16 [History Confirmed 03/03/18] cholecalciferol (vitamin D3) 2,000 unit capsule 2,000 unit PO ONCE 07/29/17 [History Confirmed 03/03/18] metformin ER 500 mg tablet,extended release 24 hr 500 mg PO QDAY 07/29/17 [History Confirmed 03/03/18] diltiazem ER 360 mg tablet,extended release 24 hr 360 mg PO DAILY #90 tab 08/26/17 [Rx Confirmed 03/03/18] fluticasone 250 mcg-salmeterol 50 mcg/dose blistr powdr for inhalation 1 inh INHALATION DAILY #90 ea 08/26/17 [Rx Confirmed 03/03/18] potassium chloride ER 20 mEq tablet,extended release(part/cryst) 20 meq PO TID #270 tab 08/26/17 [Rx Confirmed 03/03/18] spironolactone 50 mg tablet 50 mg PO DAILY #90 tab 08/26/17 [Rx Confirmed 03/03/18] tolterodine ER 2 mg capsule,extended release 24 hr 2 mg PO BID #60 cap 10/07/17 [Rx Confirmed 03/03/18] ascorbic acid (vitamin C) 1,000 mg tablet 1 g PO QDAY tab 11/09/17 [History Confirmed 03/03/18] warfarin 3 mg tablet 3 mg PO DAILY tab 11/09/17 [History Confirmed 03/03/18] desvenlafaxine succinate ER 100 mg tablet,extended release 24 hr 100 mg PO DAILY #90 tab 12/09/17 [Rx Confirmed 03/03/18] pravastatin 40 mg tablet 40 mg PO QHS #90 tab 01/04/18 [Rx Confirmed 03/03/18] warfarin 1 mg tablet 1 mg PO QTUTHSASU #30 tab 01/08/18 [Rx Confirmed 03/03/18] triamcinolone acetonide 0.5 % topical cream 1 applic TOPICAL BID #454 g 02/06/18 [Rx Confirmed 03/03/18] sulfamethoxazole 800 mg-trimethoprim 160 mg tablet 1 tab PO BID #14 tab 02/09/18 [Rx Confirmed 03/03/18] alprazolam 1 mg tablet 1 mg PO BID #60 tab 02/25/18 [Rx Confirmed 03/03/18] fluticasone 50 mcg/actuation nasal spray,suspension 2 spray INTRANASAL DAILY #19.8 g 02/25/18 [Rx Confirmed 03/03/18] furosemide 40 mg tablet 40 mg PO BID #180 tab 02/25/18 [Rx Confirmed 03/03/18] metolazone 2.5 mg tablet 2.5 mg PO DAILY #90 tab 02/25/18 [Rx Confirmed 03/03/18] cefuroxime axetil 250 mg tablet 250 mg PO Q12H 10 Days #20 tab 03/03/18 [Rx Confirmed 03/03/18] PFSH Medical History Primary pulmonary hypertension (PPH) (Chronic) COPD (chronic obstructive pulmonary disease) (Chronic) Claustrophobia (Chronic) Anxiety (Chronic) Depression (Chronic) TIA (transient ischemic attack) (Acute) Type 2 diabetes mellitus (Chronic) Atrial fibrillation (Chronic) Lupus anticoagulant disorder (Chronic) Pulmonary arterial hypertension (Chronic) Surgical History History of cholecystectomy (Acute) History of tonsillectomy (Acute) history of bunion surgery (Acute) Family History Mother COPD (chronic obstructive pulmonary disease) Cancer melanoma Father Heart disease Alcoholism Grandmother Cancer Grandfather Parkinsons disease Social History Smoking Status: Former smoker [facility] Chief Complaint: Ear pressure AND Sinus problems Details: BETI GARCIA, is a 63 F who presents to the office today for an acute visit of right ear pressure and acute on chronic sinus pain. She has a past medical history as listed above. The patient states that over the past week and a half, she has had an acute flareup of her chronic sinusitis. She complains of frontal and maxillary sinus pain and nasal clear discharge. She also complains of right ear pressure, fullness, and discomfort. She has recently been tapering herself off of her aspirin that she is taking chronically and has been utilizing Flonase instead. She denies any other [id number] treatments, but does state that she has a history of a septal corrosion which she has been seen by ENT for and they wanted to pursue surgery, however patient refused. She denies any other aggravating or alleviating symptoms at this time. She denies any sick contacts. she otherwise denies any fever, chills, nausea, vomiting, increasing shortness of breath, chest pain or pressure, syncope or presyncopal episodes per ROS Const Constitutional: No chills, fatigue, fever(s), frequent falls, malaise, weakness, sleep problems or change in appetite Eyes Eyes: No blurry vision, change in vision, double vision, discharge or visual disturbances ENT ENT: Positive for ear pressure (Rt ear), hoarseness and post nasal drip; no abnormal hearing, ear pain, tinnitus or dizziness/vertigo Resp Respiratory: Positive for cough Cough: Yes productive and excessive phlegm production; no shortness of breath or wheezing Cardio Cardiology: No chest pain at rest, chest pain with exertion, shortness of breath, dyspnea on exertion, generalized swelling, irregular heart rhythm, lightheadedness, orthopnea, fast heart rate or palpitations Gastro GI: No abdominal pain, change in bowel habits, constipation, diarrhea, nausea/dyspepsia or vomiting Genitourinary-Female: No difficulty urinating, burning urination, painful urination, urinary incontinence, urinary frequency, urinary urgency, urinary hesitancy, urinary retention, Frequent nighttime urination/ nocturia, sexual problems, genital lesions, abnormal vaginal bleeding, pelvic pain, vaginal dryness, vaginal odor or Vaginal Itching Musc Musculoskeletal: No joint pain, back pain, joint swelling, limited range of motion, muscle weakness, numbness or tingling Skin Skin: No change in skin color, itching, rash or wounds Breast Breast: No breast lump or breast pain Neuro Neurology: No frequent falls, weakness, abnormal hearing, numbness, tingling, unsteady gait/balance, dizziness, loss of vision, memory loss or visual disturbances Psych Psychiatric: No memory loss, No anxiety, No change in appetite, No depression, No Thoughts of harming yourself/Others Endo Endocrine: No fatigue, heat intolerance, increased thirst/drinking, increased hunger or increased urination Aller/Imm Allergy/Immunologic: No wheezing, itchy eyes or seasonal allergy symptoms [place]/Lymp Hematologic/Lymphatic: No easy bleeding, easy bruising or enlarged lymph nodes Exam Const General: cooperative, comfortable, no acute distress Nutritional Appearance: average body habitus, well nourished Orientation: alert, oriented x3 Limitations: mental status not altered HENMT Head: normal to inspection Ears: hearing grossly normal bilaterally, TM abnormal bulging on the right, wth effusion purulent on the right, erythematous on the right and obstructed by cerumen on the left Nose: septum abnormal perforated Face and sinus: sinus tenderness frontal and maxillary Mouth: oral mucosae normal Throat: posterior oropharynx normal Neck Lymphatic: lymphadenopathy Resp Effort AND Inspection: normal respiratory effort, able to speak in complete sentences, normal respiratory pattern, symmetric chest movement, no audible wheezes, no cough Auscultation: Bilateral: Clear to Auscultation Cardio Palpation: normal PMI Rate: regular rate Heart Sounds: S1 normal, S2 normal, normal S1 and S2, no click, no gallops, no murmurs, no rubs Musc Musculoskeletal: No muscle weakness Neuro General: alert, awake, oriented x3, CN's II-XI intact bilaterally Speech: speech normal Gait: normal gait Motor: muscle tone normal throughout Extrem General: normal to inspection, normal gait, no edema, no pedal edema Psych Appearance: grossly normal Mental Status: mental status grossly normal Affect: normal affect Attitude: cooperative Thought Process: normal Office Procedures Cerumen Removal BMS Cerumen Removal Procedure Procedure performed by: Hailee Renteria Method of removal: irrigation From which ear canal was the cerumen removed: left Amount of Cerumen: large Patient tolerated procedure: well Complications: none Additional Details: Successful removal of left ear cerumen. Assessment AND Plan Problems 1. Right otitis media with effusion H65.91 2. Acute recurrent maxillary sinusitis J01.01 Plan Patient does have symptoms consistent with acute right otitis media with purulent effusion and acute on chronic maxillary sinusitis. Continue with Flonase and weaning off of the Afrin. Will treat with cefuroxime twice daily times 10 days. Instructed patient to follow-up if her symptoms do not improve. Discussed other supportive treatment intake and patient verbalized understanding. Discussed red flag symptoms that require urgent medical attention. Louis disclaimer Orders Orders: Medications New: Plan Detail Follow Up As previously scheduled or sooner Coding Level of Care Code Off vis,est,level 3 Diagnoses Right otitis media with effusion H65.91 Acute recurrent maxillary sinusitis J01.01 Sinusitis location: maxillary Chronicity: acute Recurrence: recurrent 03/03/18 1702 <Electronically signed by Parrish DEGROOT> Date Parrish DEGROOT Cosigner Signature: Date (if applicable) CC: JUSTICE Observed: 02/26/2018 Status: COMPLETED Source: [place] 12:00 AM [facility] REPOSITORY Telephone (CHRISTINA) BETI GARCIA ([id number]) 1955 F Date Time Provider Department 02/26/18 ANIKA QUINTEROS (RN) CHRISTINA During your visit today, we recorded the following information about you: Allergies As of Date: 02/26/2018 Noted Allergy Reaction NITRATES 09/17/2012 14 - Other: See Comments ADHESIVE TAPE (ROSINS) 11/06/2003 Date Reviewed: 10/06/2017 Reviewed by: Aditi (Rn) KAREN Bear - Fully Assessed Reason for Visit: Care Coordination [3491] Prescriptions as of 02/26/2018 Sig: AMBRISENTAN 10 MG TABLET Take 1 tablet by mouth once d* SILDENAFIL (ANTIHYPERTENSIVE)* Take 60 mg by mouth three harsha* METFORMIN ER 500 MG TABLET,EX* Take 500 mg by mouth daily at* HYDROCORTISONE 2.5 % TOPICAL * 1 application by RECTAL route* COMPOUNDED PRESCRIPTION OXYGEN uses 6 L oxygen per s* WARFARIN 1 MG TABLET Take 1 tablet by mouth daily * NASAL OINTMENT ([facility]) Apply 1 application to affect* FLUTICASONE 250 MCG-SALMETERO* Inhale 1 Puff as instructed t* PRAVASTATIN 40 MG TABLET Take 1 tablet by mouth daily * TOLTERODINE 2 MG TABLET Take 1 tablet by mouth twice * DESVENLAFAXINE SUCCINATE ER 1* Take 1 tablet by mouth once d* OLANZAPINE 2.5 MG TABLET Take 1 tablet by mouth daily * SPIRONOLACTONE 50 MG TABLET Take 1 tablet by mouth once d* MISCELLANEOUS MEDICAL SUPPLY * LABWORK: Basic Metabolic Pane* FUROSEMIDE 40 MG TABLET Take 1 tablet by mouth twice * OMEPRAZOLE 20 MG CAPSULE,FEMI* Take 20 mg by mouth once jewel* METOLAZONE 5 MG TABLET 2.5 mg. one tablet on Thursday * POTASSIUM CHLORIDE ER 20 MEQ * Take 1 tablet by mouth three * COMPOUNDED PRESCRIPTION LABWORK: Basic Metabolic Pane* WARFARIN 3 MG TABLET Take 1 tablet by mouth daily * * DILTIAZEM CD 360 MG CAPSULE,E* Take 1 capsule by mouth once * * XANAX 1 MG TABLET 2-3 tablets per day for anxie* * SLOW FE 142 MG (45 MG IRON) T* one daily Problem List As Of Date 02/26/2018 Noted Resolved Morbid obesity (HCC) [E66.01] INVALID FOR* More... 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 Proteinuria [R80.9] INVALID FOR* Lupus anticoagulant positive [R76.0] INVALID FOR* More... Pulmonary hypertension (HCC) [I27.20] INVALID FOR* More... 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 Hypertension [I10] INVALID FOR* More... Diabetes mellitus (HCC) [E11.9] INVALID FOR* More... Depression [F32.9] INVALID FOR* More... Encounter Status:Closed by ANIKA QUINTEROS on 02/26/18 INTERNAL MEDICINE Observed: 02/25/2018 Status: F Source: [place] OFFICE VISIT 3:[address] [facility] Internal Medicine [address] [place] [address] [address] [place] [address] OFFICE VISIT Date of Service: 02/25/18 MR#: [id number] Acct: [id number] Name: BETI GARCIA Rep #: [id number] : 1955 Provider: Anika Pedraza DO Age/Sex: 63/F Location: [facility] [place] Status: Signed Intake Vital Signs02/25/18 Height 5 ft 4 in Intake Visit Reasons: 1 MO FU Chief Complaint: follow-up visit Is patient in pain?: No Allergies nitroglycerin Adverse Reaction (Verified 12/30/17 14:35) Other Medications Ambrisentan [Letairis] 10 mg PO DAILY 04/21/16 [History Confirmed 12/30/17] Ferrous Sulfate [Slow Release Iron] 47.5 mg PO QHS 04/21/16 [History Confirmed 12/30/17] Olanzapine [Zyprexa] 2.5 mg PO DAILY 04/21/16 [History Confirmed 02/04/18] Omeprazole [Prilosec] 20 mg PO DAILY 04/21/16 [History Confirmed 02/04/18] Oxygen, Home [Home Oxygen] 5 l NASAL CONT 04/21/16 [History Confirmed 12/30/17] cholecalciferol (vitamin D3) 2,000 unit capsule 2,000 unit PO ONCE 07/29/17 [History Confirmed 12/30/17] metformin ER 500 mg tablet,extended release 24 hr 500 mg PO QDAY 07/29/17 [History Confirmed 02/04/18] diltiazem ER 360 mg tablet,extended release 24 hr 360 mg PO DAILY #90 tab 08/26/17 [Rx Confirmed 12/30/17] fluticasone 250 mcg-salmeterol 50 mcg/dose blistr powdr for inhalation 1 inh INHALATION DAILY #90 ea 08/26/17 [Rx Confirmed 02/04/18] potassium chloride ER 20 mEq tablet,extended release(part/cryst) 20 meq PO TID #270 tab 08/26/17 [Rx Confirmed 02/04/18] spironolactone 50 mg tablet 50 mg PO DAILY #90 tab 08/26/17 [Rx Confirmed 02/04/18] tolterodine ER 2 mg capsule,extended release 24 hr 2 mg PO BID #60 cap 10/07/17 [Rx Confirmed 12/30/17] ascorbic acid (vitamin C) 1,000 mg tablet 1 g PO QDAY tab 11/09/17 [History Confirmed 12/30/17] warfarin 3 mg tablet 3 mg PO DAILY tab 11/09/17 [History Confirmed 01/12/18] desvenlafaxine succinate ER 100 mg tablet,extended release 24 hr 100 mg PO DAILY #90 tab 12/09/17 [Rx Confirmed 12/30/17] pravastatin 40 mg tablet 40 mg PO QHS #90 tab 01/04/18 [Rx Confirmed 02/04/18] warfarin 1 mg tablet 1 mg PO QTUTHSASU #30 tab 01/08/18 [Rx Confirmed 01/12/18] triamcinolone acetonide 0.5 % topical cream 1 applic TOPICAL BID #454 g 02/06/18 [Rx] sulfamethoxazole 800 mg-trimethoprim 160 mg tablet 1 tab PO BID #14 tab 02/09/18 [Rx] alprazolam 1 mg tablet 1 mg PO BID #60 tab 02/25/18 [Rx Confirmed 02/25/18] fluticasone 50 mcg/actuation nasal spray,suspension 2 spray INTRANASAL DAILY #19.8 g 02/25/18 [Rx Confirmed 02/25/18] furosemide 40 mg tablet 40 mg PO BID #180 tab 02/25/18 [Rx Confirmed 02/25/18] metolazone 2.5 mg tablet 2.5 mg PO DAILY #90 tab 02/25/18 [Rx Confirmed 02/25/18] Post menopausal: Yes PFSH Medical History Primary pulmonary hypertension (PPH) (Chronic) COPD (chronic obstructive pulmonary disease) (Chronic) Claustrophobia (Chronic) Anxiety (Chronic) Depression (Chronic) TIA (transient ischemic attack) (Acute) Type 2 diabetes mellitus (Chronic) Atrial fibrillation (Chronic) Lupus anticoagulant disorder (Chronic) Pulmonary arterial hypertension (Chronic) Surgical History History of cholecystectomy (Acute) History of tonsillectomy (Acute) history of bunion surgery (Acute) Family History Mother COPD (chronic obstructive pulmonary disease) Cancer melanoma Father Heart disease Alcoholism Grandmother Cancer Grandfather Parkinsons disease Social History Smoking Status: Former smoker HPI HPI Chief Complaint: follow-up visit Details: BETI GARCIA, is a 63 F who presents to the office today for ROS Const Constitutional: No body ache, chills, headache(s), weakness, fever(s), change in appetite, fatigue or excessive sweating Eyes Eyes: No blurry vision, change in vision, eye pain or discharge ENT ENT: No headache(s), abnormal hearing, ear pain, ear pressure, tinnitus, dizziness/vertigo, balance problems or neck pain Resp Respiratory: No cough, shortness of breath or wheezing Cardio Cardiology: No chest pain at rest, shortness of breath, dyspnea on exertion, palpitations or excessive sweating Gastro GI: No abdominal pain or bloating Genitourinary-Female: No burning urination, painful urination, urinary incontinence, urinary frequency, abnormal vaginal bleeding, pelvic pain or other Musc Musculoskeletal: No abnormal walking, joint pain, back pain, limited range of motion, neck pain, numbness, tingling or muscle weakness Skin Skin: Positive for sores (eczema spots on legs); no redness, dry skin, itching, lesions, wounds or rash Neuro Neurology: No headache(s), weakness, abnormal hearing, abnormal walking, numbness, tingling or memory loss Psych Psychiatric: No change in appetite, No anxiety, No depression, No memory loss, No Thoughts of harming yourself/Others Endo Endocrine: No fatigue, cold intolerance, excessive sweating, increased thirst/drinking, heat intolerance, flushing or increased hunger Aller/Imm Allergy/Immunologic: No wheezing or itchy eyes [place]/Lymp Hematologic/Lymphatic: No easy bleeding, easy bruising or enlarged lymph nodes Exam Const General: cooperative Nutritional Appearance: overweight Neck Neck: no lymphadenopathy Neck mass: No Thyroid: thyroid normal Resp Effort AND Inspection: normal respiratory effort Auscultation: Bilateral: Clear to Auscultation Cardio Rate: regular rate Rhythm: regular rhythm Musc Musculoskeletal: No muscle weakness Extrem General: normal to inspection Psych Affect: normal affect Speech and Movement: speech and movement normal Assessment AND Plan Problems 1. 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 Primary pulmonary hypertension (PPH) I27.0 4. COPD (chronic obstructive pulmonary disease) J44.9 5. Claustrophobia F40.240 6. Type 2 diabetes mellitus E11.9 Plan She will bump up the coumadin to 4mg on Thursday and Thursday, she has had one episode of A-fib. We discussed getting pneumococcal 23 vaccine which she is going to do at the pharmacy because she is on Medicare. Medications were refilled and she will continue with her monthly INRs. 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 REPOSITORY TYPE CODE TESTS RESULT OUT OF RANGE REFERENCE UNITS LAB L300.4150 11.7-14.9 SECONDS High PROTIME 24.0 LAB L300.4200 Normal INR 2.1 Performed By: #### L300.3900 #### [facility] [address] [place], [address] Observed: 02/08/2018 Status: F Source: [place] CULTURE, URINE 4:[address] [facility] REPOSITORY Urine Culture ORGANISM 1: Presumptive E. coli [place] Count 11,000-25,000 Presumptive E. coli: REACTION Amoxacillin/Clavulanic Acid $ 4 S Ampicillin $ 8 S Ampicillin/Sulbactam $ 4 S Cefazolin $ <=4 S Cefepime $ <=1 S Ceftriaxone $ <=1 S Ciprofloxacin $ 1 S ESBL - Ertapenim $$$ <=0.5 S Gentamicin $ <=1 S Imipenem *NF <=0.25 S Levofloxacin $ 1 S Nitrofurantoin $ <=16 S Piperacillin/Tazobactam $$ <=4 S Tobramycin $ <=1 S Trimethoprim/Sulfametho $ <=20 S (NF) indicates non-formulary drug at [facility]. Approval by Infectious Disease Specialist required before non-formulary drugs may be ordered and/or dispensed. Performed By: #### M100.0650 #### [facility] [address] [place], [address] INTERNAL MEDICINE Observed: 02/05/2018 Status: F Source: [place] OFFICE VISIT 9:[address] [facility] REPOSITORY [place] [facility] [address] [place] [address] [place] [address] OFFICE VISIT Date of Service: 02/04/18 MR#: [id number] Acct: [id number] Name: BETI GARCIA Rep #: [id number] : 1955 Provider: Anika Pedraza DO Age/Sex: 63/F Location: [facility] Status: Signed with Addenda ADDENDUM by Hollie Manuel on 02/05/18 at 0952 OFFICE PROCEDURES Office Procedure Documentation entered by Hollie Manuel 02/05/18 09:52: Office Meds Fluad 65yr up(PF)45 mcg(15 mcgx3)/0.5 mL intramuscular syringe Performing Provider: Anika Pedraza DO Administered by: Hollie Manuel on 02/05/18 09:51 Dose Route Admin Location Lot Number Expiration Date NDC Car Packer 0.5 mL IM Rt Deltoid [id number] 11/07/18 84761-606-24 [employer] 02/05/18 0952 <Electronically signed by Hollie Manuel > Date Hollie Manuel cc: * Signed Intake Vital Signs02/04/18 Height 5 ft 4 in Intake Visit Reasons: 1 MO FU Chief Complaint: follow-up visit Is patient in pain?: No Allergies nitroglycerin Adverse Reaction (Verified 12/30/17 14:35) Other Medications Ambrisentan [Letairis] 10 mg PO DAILY 04/21/16 [History Confirmed 12/30/17] Ferrous Sulfate [Slow Release Iron] 47.5 mg PO QHS 04/21/16 [History Confirmed 12/30/17] Metolazone [Zaroxolyn] 2.5 mg PO DAILY 04/21/16 [History Confirmed 02/04/18] Olanzapine [Zyprexa] 2.5 mg PO DAILY 04/21/16 [History Confirmed 02/04/18] Omeprazole [Prilosec] 20 mg PO DAILY 04/21/16 [History Confirmed 02/04/18] Oxygen, Home [Home Oxygen] 5 l NASAL CONT 04/21/16 [History Confirmed 12/30/17] cholecalciferol (vitamin D3) 2,000 unit capsule 2,000 unit PO ONCE 07/29/17 [History Confirmed 12/30/17] metformin ER 500 mg tablet,extended release 24 hr 500 mg PO QDAY 07/29/17 [History Confirmed 02/04/18] diltiazem ER 360 mg tablet,extended release 24 hr 360 mg PO DAILY #90 tab 08/26/17 [Rx Confirmed 12/30/17] fluticasone 250 mcg-salmeterol 50 mcg/dose blistr powdr for inhalation 1 inh INHALATION DAILY #90 ea 08/26/17 [Rx Confirmed 02/04/18] furosemide 40 mg tablet 40 mg PO BID #180 tab 08/26/17 [Rx Confirmed 02/04/18] potassium chloride ER 20 mEq tablet,extended release(part/cryst) 20 meq PO TID #270 tab 08/26/17 [Rx Confirmed 02/04/18] spironolactone 50 mg tablet 50 mg PO DAILY #90 tab 08/26/17 [Rx Confirmed 02/04/18] tolterodine ER 2 mg capsule,extended release 24 hr 2 mg PO BID #60 cap 10/07/17 [Rx Confirmed 12/30/17] ascorbic acid (vitamin C) 1,000 mg tablet 1 g PO QDAY tab 11/09/17 [History Confirmed 12/30/17] warfarin 3 mg tablet 3 mg PO DAILY tab 11/09/17 [History Confirmed 01/12/18] alprazolam 1 mg tablet 1 mg PO BID #60 tab 07/18/18 [Rx Confirmed 12/30/17] desvenlafaxine succinate ER 100 mg tablet,extended release 24 hr 100 mg PO DAILY #90 tab 12/09/17 [Rx Confirmed 12/30/17] pravastatin 40 mg tablet 40 mg PO QHS #90 tab 01/04/18 [Rx Confirmed 02/04/18] warfarin 1 mg tablet 1 mg PO QTUTHSASU #30 tab 01/08/18 [Rx Confirmed 01/12/18] [facility] Medical History Primary pulmonary hypertension (PPH) (Chronic) COPD (chronic obstructive pulmonary disease) (Chronic) Claustrophobia (Chronic) Anxiety (Chronic) Depression (Chronic) TIA (transient ischemic attack) (Acute) Type 2 diabetes mellitus (Chronic) Atrial fibrillation (Chronic) Lupus anticoagulant disorder (Chronic) Pulmonary arterial hypertension (Chronic) Surgical History History of cholecystectomy (Acute) History of tonsillectomy (Acute) history of bunion surgery (Acute) Family History Mother COPD (chronic obstructive pulmonary disease) Cancer melanoma Father Heart disease Alcoholism Grandmother Cancer Grandfather Parkinsons disease Social History Smoking Status: Former smoker HPI HPI Chief Complaint: follow-up visit Details: EBTI GARCIA, is a 63 F who presents to the office today for a routine checkup she is concerned because of her oxygen supplier going out of business so she needs to find a new oxygen supplier. She still is complaining of urinary infection type of symptoms. ROS Const Constitutional: No weight change, body ache, chills, fatigue, sleep problems, fever(s), change in appetite, snoring, weakness, frequent falls, headache(s) or excessive sweating Eyes Eyes: No change in vision, eye pain, light sensitivity or blurry vision ENT ENT: No headache(s), abnormal hearing, ear pain, tinnitus, nasal congestion, sore throat or neck pain Resp Respiratory: No snoring, cough, shortness of breath or wheezing Cardio Cardiology: No excessive sweating, chest pain at rest, chest pain with exertion, shortness of breath, dyspnea on exertion, palpitations, orthopnea or lightheadedness Gastro GI: No abdominal pain, change in bowel habits, constipation, diarrhea, vomiting, nausea/dyspepsia or cramping Genitourinary-Female: Positive for painful urination (intermittant); no burning urination, urinary incontinence, urinary frequency, abnormal vaginal bleeding, pelvic pain or other Musc Musculoskeletal: No neck pain, abnormal walking, joint pain, back pain, limited range of motion, numbness, tingling or muscle weakness Skin Skin: No redness, dry skin, itching, lesions, wounds or rash Neuro Neurology: No weakness, frequent falls, headache(s), abnormal hearing, abnormal walking, numbness, tingling, abnormal speech, dizziness or memory loss Psych Psychiatric: No change in appetite, No memory loss, No anxiety, No depression, No Thoughts of harming yourself/Others Endo Endocrine: No fatigue, excessive sweating, cold intolerance, increased thirst/drinking, heat intolerance, flushing or increased hunger Aller/Imm Allergy/Immunologic: No wheezing, itchy eyes, hives or seasonal allergy symptoms [place]/Lymp Hematologic/Lymphatic: No easy bleeding, easy bruising or enlarged lymph nodes Exam Const General: cooperative Nutritional Appearance: overweight Neck Neck: no lymphadenopathy Neck mass: No Thyroid: thyroid normal Resp Effort AND Inspection: normal respiratory effort Auscultation: Bilateral: Clear to Auscultation Cardio Rate: regular rate Rhythm: regular rhythm Musc Musculoskeletal: No muscle weakness Skin General: ecchymosis Extrem General: normal to inspection Psych Affect: normal affect Speech and Movement: speech and movement normal Assessment AND Plan Problems 1. Primary pulmonary hypertension (PPH) I27.0 2. 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 Anxiety F41.9 5. Type 2 diabetes mellitus E11.9 6. 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 She states she has had 2 urinary tract infections since last seen treated with amoxicillin but still has frequency and irritation. I ordered a urinalysis with a culture, I ordered hemoglobin A1c to evaluate her diabetes, I wrote new prescriptions for her oxygen supplier. Physical examination was unchanged from prior examinations. I did discuss possible referral to uro-sandblast operator should the culture be negative. 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 REPOSITORY TYPE CODE TESTS RESULT OUT OF RANGE REFERENCE UNITS LAB L300.4150 11.7-14.9 SECONDS High PROTIME 23.6 LAB L300.4200 Normal INR 2.1 Performed By: #### L300.3900 #### [facility] [address] [place], [place], [address] PROTHROMBIN TIME W/INR Collected: 01/06/2018 Status: F Source: [place] 2:[address] [facility] REPOSITORY TYPE CODE TESTS RESULT OUT OF RANGE REFERENCE UNITS LAB L300.4150 11.7-14.9 SECONDS High PROTIME 27.3 LAB L300.4200 Normal INR 2.5 Performed By: #### L300.3900 #### [facility] [address] [place], [address] INTERNAL MEDICINE Observed: 12/31/2017 Status: F Source: [place] OFFICE VISIT 8:[address] [facility] REPOSITORY [facility] [address] [place] [address] [place] [address] OFFICE VISIT Date of Service: 12/30/17 MR#: [id number] Acct: [id number] Name: BETI GARCIA Rep #: [id number] : 1955 Provider: Anika Pedraza DO Age/Sex: 62/F Location: [facility] Status: Signed Intake Vital Signs12/30/17 Height 5 ft 4 in 12/30/17 Weight: 210 lb 12/30/17 Body Mass Index (BMI) 36.0 12/30/17 Blood Pressure 161/72 Intake Visit Reasons: 1 M FU Chief Complaint: 1 Mo follow-up visit AND UTI Is patient in pain?: No Allergies nitroglycerin Adverse Reaction (Verified 12/30/17 14:35) Other Medications Ambrisentan [Letairis] 10 mg PO DAILY 04/21/16 [History Confirmed 12/30/17] Ferrous Sulfate [Slow Release Iron] 47.5 mg PO QHS 04/21/16 [History Confirmed 12/30/17] Metolazone [Zaroxolyn] 2.5 mg PO DAILY 04/21/16 [History Confirmed 12/30/17] Olanzapine [Zyprexa] 2.5 mg PO DAILY 04/21/16 [History Confirmed 12/30/17] Omeprazole [Prilosec] 20 mg PO DAILY 04/21/16 [History Confirmed 12/30/17] Oxygen, Home [Home Oxygen] 5 l NASAL CONT 04/21/16 [History Confirmed 12/30/17] Pravastatin [Pravachol] 40 mg PO QHS 04/21/16 [History Confirmed 12/30/17] cholecalciferol (vitamin D3) 2,000 unit capsule 2,000 unit PO ONCE 07/29/17 [History Confirmed 12/30/17] metformin ER 500 mg tablet,extended release 24 hr 500 mg PO QDAY 07/29/17 [History Confirmed 12/30/17] diltiazem ER 360 mg tablet,extended release 24 hr 360 mg PO DAILY #90 tab 08/26/17 [Rx Confirmed 12/30/17] fluticasone 250 mcg-salmeterol 50 mcg/dose blistr powdr for inhalation 1 inh INHALATION DAILY #90 ea 08/26/17 [Rx Confirmed 12/30/17] furosemide 40 mg tablet 40 mg PO BID #180 tab 08/26/17 [Rx Confirmed 12/30/17] potassium chloride ER 20 mEq tablet,extended release(part/cryst) 20 meq PO TID #270 tab 08/26/17 [Rx Confirmed 12/30/17] spironolactone 50 mg tablet 50 mg PO DAILY #90 tab 08/26/17 [Rx Confirmed 12/30/17] tolterodine ER 2 mg capsule,extended release 24 hr 2 mg PO BID #60 cap 10/07/17 [Rx Confirmed 12/30/17] ascorbic acid (vitamin C) 1,000 mg tablet 1 g PO QDAY tab 11/09/17 [History Confirmed 12/30/17] warfarin 3 mg tablet 3 mg PO DAILY tab 11/09/17 [History Confirmed 12/30/17] alprazolam 1 mg tablet 1 mg PO BID #60 tab 11/25/17 [Rx Confirmed 12/30/17] desvenlafaxine succinate ER 100 mg tablet,extended release 24 hr 100 mg PO DAILY #90 tab 12/09/17 [Rx Confirmed 12/30/17] warfarin 1 mg tablet 1 mg PO QTUTHSASU 12/30/17 [History Confirmed 12/30/17] [facility] Medical History Primary pulmonary hypertension (PPH) (Chronic) COPD (chronic obstructive pulmonary disease) (Chronic) Claustrophobia (Chronic) Anxiety (Chronic) Depression (Chronic) TIA (transient ischemic attack) (Acute) Type 2 diabetes mellitus (Chronic) Atrial fibrillation (Chronic) Lupus anticoagulant disorder (Chronic) Pulmonary arterial hypertension (Chronic) Surgical History History of cholecystectomy (Acute) History of tonsillectomy (Acute) history of bunion surgery (Acute) Family History Mother COPD (chronic obstructive pulmonary disease) Cancer melanoma Father Heart disease Alcoholism Grandmother Cancer Grandfather Parkinsons disease Social History Smoking Status: Former smoker HPI HPI Chief Complaint: 1 Mo follow-up visit AND UTI Details: BETI GARCIA, is a 62 F who presents to the office today for bruising and frequency of urination. She has also had a lot of blood in the urine ROS Const Constitutional: No chills, fatigue, fever(s), frequent falls, malaise, weakness, sleep problems or change in appetite Eyes Eyes: No blurry vision, change in vision, double vision, discharge or visual disturbances ENT ENT: No abnormal hearing, ear pain, ear pressure, tinnitus or dizziness/vertigo Resp Respiratory: No cough, shortness of breath or wheezing Cardio Cardiology: No chest pain at rest, chest pain with exertion, shortness of breath, dyspnea on exertion, generalized swelling, irregular heart rhythm, lightheadedness, orthopnea, fast heart rate or palpitations Gastro GI: No abdominal pain, change in bowel habits, constipation, diarrhea, nausea/dyspepsia or vomiting Genitourinary-Female: Positive for urinary frequency, urinary urgency, urinary hesitancy, Frequent nighttime urination/ nocturia and blood in urine (Passing clots); no difficulty urinating, burning urination, painful urination, urinary incontinence, urinary retention, sexual problems, genital lesions, abnormal vaginal bleeding, pelvic pain, vaginal dryness, vaginal odor or Vaginal Itching Musc Musculoskeletal: No joint pain, back pain, joint swelling, limited range of motion, muscle weakness, numbness or tingling Skin Skin: No change in skin color, itching, rash or wounds Breast Breast: No breast lump or breast pain Neuro Neurology: No frequent falls, weakness, abnormal hearing, numbness, tingling, unsteady gait/balance, dizziness, loss of vision, memory loss or visual disturbances Psych Psychiatric: No memory loss, No anxiety, No change in appetite, No depression, No Thoughts of harming yourself/Others Endo Endocrine: No fatigue, heat intolerance, increased thirst/drinking, increased hunger or increased urination Aller/Imm Allergy/Immunologic: No wheezing, itchy eyes or seasonal allergy symptoms [place]/Lymp Hematologic/Lymphatic: No easy bleeding, easy bruising or enlarged lymph nodes Exam Const General: cooperative Nutritional Appearance: overweight Resp Effort AND Inspection: normal respiratory effort Auscultation: Bilateral: Clear to Auscultation Cardio Rate: regular rate Rhythm: regular rhythm Musc Musculoskeletal: No muscle weakness Skin General: ecchymosis Extrem General: normal to inspection Psych Affect: normal affect Speech and Movement: speech and movement normal Assessment AND Plan 1. Primary pulmonary hypertension (PPH) I27.0 Plan The reports from [facility] was reviewed and she is thinking about proceeding with surgery for this problem. 2. COPD (chronic obstructive pulmonary disease) J44.9 Plan Status is stable. 3. Claustrophobia F40.240 Plan The medication she takes for this problem are helping but she is having some periods of confusion in the morning from a hangover effect so she is being very careful about not driving in the morning. 4. TIA (transient ischemic attack) G45.9 Plan She has had no further TIAs since her last visit. 5. Type 2 diabetes mellitus E11.9 Plan Patient's blood sugars have been well controlled. 6. Atrial fibrillation I48.91 Plan Patient's INR was 3.7 of course that is too high and she has had some bleeding in the urine so her Coumadin was dropped to 3 mg a day the 4 mg dose was eliminated and she is going to have a repeat INR in 1 week. 7. Hematuria R31.9 Plan Urinalysis was ordered to try and determine whether she has any infection superimposed on her anticoagulation that might be causing the hematuria. Orders Orders: Plan Detail Follow Up 1 Month Coding Level of Care Code Off vis,est,level 3 Diagnoses Primary pulmonary hypertension (PPH) I27.0 COPD (chronic obstructive pulmonary disease) J44.9 Claustrophobia F40.240 TIA (transient ischemic attack) G45.9 Type 2 diabetes mellitus E11.9 Atrial fibrillation I48.91 Hematuria R31.9 12/31/17 0829 <Electronically signed by Anika Pedraza DO> Date Anika Pedraza DO Cosigner Signature: Date (if applicable) CC: URINALYSIS, COMPLETE Collected: 12/30/2017 Status: F Source: [place] 3:[address] [facility] REPOSITORY Order Comment: COLOR OF URINE MAY AFFECT DIPSTICK RESULTS. How was Urine Obtained? LICENSING DIRECTOR TO SPECIFY TYPE CODE TESTS RESULT OUT OF RANGE REFERENCE UNITS LAB L400.3000 Yellow COLOR Normal Red LAB L400.3050 Clear Normal CLARITY Turbid LAB L400.3200 Normal mg/dl Normal GLUCOSE, UR Normal LAB L400.3300 Negative mg/dL Normal BILIRUBIN URINE Negative LAB L400.3400 Negative mg/dl Normal KETONE UR Negative LAB L400.3465 1.002-1.030 Normal SP.GR. DIPSTX 1.010 LAB L400.3550 5.0 - 8.0 pH UR Normal 7.0 LAB L400.3600 Negative mg/dl High PROT DIPSTX 500 LAB L400.3700 Normal mg/dl Normal UROBILI Normal LAB L400.3750 Negative Normal NITRITE UR Negative LAB L400.3780 Negative /ul High OCCULT BLOOD-UR 250 LAB L400.3800 Negative /ul LEUK Normal ESTERASE Negative LAB L400.4050 0-5 /hpf WBC Normal 25-50 SEEN LAB L400.4100 0-5 /hpf > Normal RBC-UA 100 SEEN Result Comment: Microscopic field is filled. Other elements may be obscured. LAB L400.4150 5-10 /hpf Normal SQUAM EPI 0-5 SEEN LAB L400.4300 None Seen /hpf Normal BACTERIA 4+ LAB L400.4350 <or=2+ /hpf Normal MUCUS, URINE 0 SEEN Performed By: #### L400.0001 #### [facility] [address] [place], [place], [address] PROTHROMBIN TIME W/INR Collected: 12/29/2017 Status: F Source: [place] 4:[address] [facility] REPOSITORY TYPE CODE TESTS RESULT OUT OF REFERENCE UNITS RANGE LAB L300.4150 11.7-14.9 SECONDS High PROTIME 36.9 LAB L300.4200 High alert INR 3.7 Result Comment: CRITICAL VALUE VERIFIED. CALLED TO SHAYLA 12/29/17 Lul Peralta. RESULTS READ BACK BY SAME . Performed By: #### L300.3900 #### [facility] [address] [place], [address] INTERNAL MEDICINE Observed: 11/25/2017 Status: F Source: [place] OFFICE VISIT 3:[address] [facility] REPOSITORY [facility] [address] [place] [address] [place] [address] OFFICE VISIT Date of Service: 11/25/17 MR#: [id number] Acct: [id number] Name: BETI GARCIA Rep #: [id number] : 1955 Provider: Anika Pedraza DO Age/Sex: 62/F Location: [facility] Status: Signed Intake Vital Signs11/25/17 Height 5 ft 4 in 11/25/17 Weight: 230 lb 11/25/17 Body Mass Index (BMI) 39.4 11/25/17 Blood Pressure 139/74 Intake Visit Reasons: 1 M FU Chief Complaint: 1 MO follow-up visit Is patient in pain?: No Allergies nitroglycerin Adverse Reaction (Verified 11/25/17 14:41) Other Medications Ambrisentan [Letairis] 10 mg PO DAILY 04/21/16 [History Confirmed 11/25/17] Desvenlafaxine Succinate [Pristiq] 100 mg PO DAILY 04/21/16 [History Confirmed 11/25/17] Ferrous Sulfate [Slow Release Iron] 47.5 mg PO QHS 04/21/16 [History Confirmed 11/25/17] Metolazone [Zaroxolyn] 2.5 mg PO DAILY 04/21/16 [History Confirmed 11/25/17] Olanzapine [Zyprexa] 2.5 mg PO DAILY 04/21/16 [History Confirmed 11/25/17] Omeprazole [Prilosec] 20 mg PO DAILY 04/21/16 [History Confirmed 11/25/17] Oxygen, Home [Home Oxygen] 5 l NASAL CONT 04/21/16 [History Confirmed 11/25/17] Pravastatin [Pravachol] 40 mg PO QHS 04/21/16 [History Confirmed 11/25/17] Warfarin [Coumadin ([facility])] 4 mg PO DAILY 04/21/16 [History Confirmed 11/25/17] cholecalciferol (vitamin D3) 2,000 unit capsule 2,000 unit PO ONCE 07/29/17 [History Confirmed 11/25/17] metformin ER 500 mg tablet,extended release 24 hr 500 mg PO QDAY 07/29/17 [History Confirmed 11/25/17] multivitamin capsule 1 cap PO QAM 07/29/17 [History Confirmed 11/25/17] diltiazem ER 360 mg tablet,extended release 24 hr 360 mg PO DAILY #90 tab 08/26/17 [Rx Confirmed 11/25/17] fluticasone 250 mcg-salmeterol 50 mcg/dose blistr powdr for inhalation 1 inh INHALATION DAILY #90 ea 08/26/17 [Rx Confirmed 11/25/17] furosemide 40 mg tablet 40 mg PO BID #180 tab 08/26/17 [Rx Confirmed 11/25/17] potassium chloride ER 20 mEq tablet,extended release(part/cryst) 20 meq PO TID #270 tab 08/26/17 [Rx Confirmed 11/25/17] spironolactone 50 mg tablet 50 mg PO DAILY #90 tab 08/26/17 [Rx Confirmed 11/25/17] tolterodine ER 2 mg capsule,extended release 24 hr 2 mg PO BID #60 cap 10/07/17 [Rx Confirmed 11/25/17] ascorbic acid (vitamin C) 1,000 mg tablet 1 g PO QDAY tab 11/09/17 [History Confirmed 11/25/17] warfarin 3 mg tablet 3 mg PO DAILY tab 11/09/17 [History Confirmed 11/25/17] alprazolam 1 mg tablet 1 mg PO BID #60 tab 11/25/17 [Rx Confirmed 11/25/17] mupirocin 2 % topical cream 1 applic TOPICAL BID #30 g 11/25/17 [Rx Confirmed 11/25/17] [facility] Medical History COPD (chronic obstructive pulmonary disease) (Chronic) Claustrophobia (Chronic) Anxiety (Chronic) Depression (Chronic) TIA (transient ischemic attack) (Acute) Type 2 diabetes mellitus (Chronic) Atrial fibrillation (Chronic) Lupus anticoagulant disorder (Chronic) Pulmonary arterial hypertension (Chronic) Surgical History History of cholecystectomy (Acute) History of tonsillectomy (Acute) history of bunion surgery (Acute) Family History Mother COPD (chronic obstructive pulmonary disease) Cancer melanoma Father Heart disease Alcoholism Grandmother Cancer Grandfather Parkinsons disease Social History Smoking Status: Former smoker HPI HPI Chief Complaint: 1 MO follow-up visit Details: BETI GARCIA, is a 62 F who presents to the office today for a check up, and evaluation of a folliculitis ROS Const Constitutional: No chills, fatigue, fever(s), frequent falls, malaise, weakness, sleep problems or change in appetite Eyes Eyes: No blurry vision, change in vision, double vision, discharge or visual disturbances ENT ENT: No abnormal hearing, ear pain, ear pressure, tinnitus or dizziness/vertigo Resp Respiratory: No cough, shortness of breath or wheezing Cardio Cardiology: No chest pain at rest, chest pain with exertion, shortness of breath, dyspnea on exertion, generalized swelling, irregular heart rhythm, lightheadedness, orthopnea, fast heart rate or palpitations Gastro GI: No abdominal pain, change in bowel habits, constipation, diarrhea, nausea/dyspepsia or vomiting Genitourinary-Female: No difficulty urinating, burning urination, painful urination, urinary incontinence, urinary frequency, urinary urgency, urinary hesitancy, urinary retention, Frequent nighttime urination/ nocturia, sexual problems, genital lesions, abnormal vaginal bleeding, pelvic pain, vaginal dryness, vaginal odor or Vaginal Itching Musc Musculoskeletal: No joint pain, back pain, joint swelling, limited range of motion, muscle weakness, numbness or tingling Skin Skin: Positive for rash (Both legs); no change in skin color, itching or wounds Breast Breast: No breast lump or breast pain Neuro Neurology: No frequent falls, weakness, abnormal hearing, numbness, tingling, unsteady gait/balance, dizziness, loss of vision, memory loss or visual disturbances Psych Psychiatric: No memory loss, No anxiety, No change in appetite, No depression, No Thoughts of harming yourself/Others Endo Endocrine: No fatigue, heat intolerance, increased thirst/drinking, increased hunger or increased urination Aller/Imm Allergy/Immunologic: No wheezing, itchy eyes or seasonal allergy symptoms [place]/Lymp Hematologic/Lymphatic: No easy bleeding, easy bruising or enlarged lymph nodes Exam Const General: healthy appearing Nutritional Appearance: overweight Limitations: physical limitations Resp Effort AND Inspection: normal respiratory effort Auscultation: Bilateral: Clear to Auscultation Cardio Rate: regular rate Rhythm: regular rhythm Musc Musculoskeletal: No muscle weakness Skin Rashes: rashes noted (Pt. has a folliculitis of the legs.) Extrem General: normal exam except as noted Other: Rash is on the leg bilateral Psych Affect: normal affect Assessment AND Plan 1. Primary pulmonary hypertension (PPH) I27.0 Plan Patient's primary pulmonary hypertension is being managed by a clinic up in [place] she has no change in her status as far as shortness of breath. 2. Anxiety F41.9 Plan She still has problems with chronic anxiety she did not do well on the extended release Xanax so we switched her back to the regular immediate release Xanax 1 mg twice a day. 3. TIA (transient ischemic attack) G45.9 Plan Patient's INR was 3 yesterday and that is exactly where I would like it to be. 4. Type 2 diabetes mellitus E11.9 Plan Patient's hemoglobin A1c is 6.9 which is where was 3 months ago and shows well-controlled diabetes. 5. Atrial fibrillation I48.91 Plan Patient has no tachyarrhythmias she still remains in having episodes of paroxysmal atrial fibrillation. 6. Folliculitis L73.9 Plan The rash she presents with appears to be a simple folliculitis type of rash she denies being in hot tubs but I think it should be easily treated with use of mupirocin.. Plan Detail Other Medications New: Discontinued: Follow Up 2 Months Coding Level of Care Code Off vis,est,level 4 Diagnoses Primary pulmonary hypertension (PPH) I27.0 Anxiety F41.9 TIA (transient ischemic attack) G45.9 Type 2 diabetes mellitus E11.9 Atrial fibrillation I48.91 Folliculitis L73.9 11/25/17 3575 <Electronically signed by Anika Pedraza DO> Date Anika Pedraza DO Cosigner Signature: Date (if applicable) CC: PROTHROMBIN TIME W/INR Collected: 11/24/2017 Status: F Source: [place] 2:[address] [facility] REPOSITORY TYPE CODE TESTS RESULT OUT OF RANGE REFERENCE UNITS LAB L300.4150 11.7-14.9 SECONDS High PROTIME 31.2 LAB L300.4200 Normal INR 3.0 Performed By: #### L300.3900 #### [facility] [address] [place], [address] HEMOGLOBIN A1C Collected: 11/24/2017 Status: F Source: SI[place] 2:[address] [facility] REPOSITORY TYPE CODE TESTS RESULT OUT OF RANGE REFERENCE UNITS LAB L501.9985 4.2-6.3 % High HGB A1C 6.9 Performed By: #### L501.9985 #### [facility] [address] [place], [address] CT CHEST W IVCON PE Observed: 10/06/2017 Status: F Source: [place] 10:50 AM [facility] REPOSITORY * * *Final Report* * * DATE OF EXAM: Oct 06 2017 10:50AM [facility] [place] [facility] - CT CHEST W IVCON PE / PROCEDURE REASON: Chronic thromboembolic pulmonary hypertension * * * * Physician Interpretation * * * * EXAMINATION: CHEST CT WITH CONTRAST (PULMONARY EMBOLISM PROTOCOL) CLINICAL HISTORY: Chronic thromboembolic pulmonary hypertension Technique: Spiral CT acquisition of the chest from the thoracic inlet to the upper abdomen following IV contrast. MQ: [id number]_4 Contrast: 140 mL Omnipaque [address] Dose-Length Product: 388 mGy*cm CT Dose Reduction Employed: Automated exposure control (AEC) Comparison: 05/05/2014 RESULT: Limitations: None. Pulmonary vasculature: There is good contrast opacification of the pulmonary arterial vasculature. Right Heart Chambers: No thromboembolic disease. Pulmonary Arteries: The central pulmonary arteries are dilated (the main pulmonary artery measures 36 mm), suggestive of pulmonary hypertension. RUL: Chronic appearing webs are noted in the segmental branches of the right upper lobe; for example in the anterior segmental branch at image 113 and in the posterior segmental branch at image 101. Some of the subsegmental branches are narrowed. RML: A small web is noted near the bifurcation of the right middle lobe pulmonary artery, image 157. RLL: Just distal to the origin of the right middle lobe bronchus are chronic appearing webs in the right lower lobar pulmonary artery, which extend into the proximal segmental branches. There are areas of narrowing followed by post stenotic dilation in the segmental branches of the right lower lobe; for example in the posterior basal segmental branch at image 176. JOSHUA: A linear web is noted in the anterior segmental branch of the left upper lobe. Mild luminal irregularity is noted in the apicoposterior branch of the left upper lobe. There is near complete occlusion of the lingular branch, image 134. LLL: Just distal to the origin of the superior segmental branch of the left lower lobe is stenosis of the left lower lobar pulmonary artery followed by post stenotic dilation. The posteromedial segmental branch of the left lower lobe is poorly opacified and near completely occluded, image 161. Also noted are webs in the anterolateral basal segmental branch of the left lower lobe, image 145. Overall, the disease burden shows no substantial interval change since prior exam. On the iodine (PBV) maps, multiple patchy perfusion defects are noted in all 5 segments of both lobes. The most prominent perfusion defects are noted in the right upper lobe, lingula and both lower lobes (left greater than right). There are bronchial artery collaterals, image 93. Lung parenchyma: There is mosaic attenuation of the lung parenchyma consistent with patient's known chronic thromboembolic disease. Calcified granulomas are noted in the right upper lobe. Additional noncalcified pulmonary nodules are unchanged since prior examination. For example, a stable 3 mm left upper lobe nodule is noted at image 56. Another stable 2 mm right lower lobe nodule is noted at image 227. Dependent opacities in both lower lobes are new since prior examination and likely related to atelectasis. Some of the peripheral vessels in both lungs may be related to collateral vessels; for example at the left lung base at image 221. Linear bands of atelectasis/scarring are noted in both upper lobes, lingula and in both lower lobes. Some of the peripheral opacities in the lungs may be related to sequela of infarcts. The central airways are patent. No pleural effusion is noted. Thoracic Inlet and Mediastinum: The thyroid gland is unremarkable. Calcified mediastinal lymph nodes are noted, in keeping with remote granulomatous disease. A prominent 6 mm diaphragmatic lymph node is unchanged, image 222. The aorta is normal in size. The cardiac chambers are normal in size. Mild coronary artery calcifications are noted, though the study was not optimized for coronary assessment. No pericardial thickening or effusion is noted. Chest wall and bony structures: The chest wall is unremarkable. Mild degenerative changes are noted in the thoracic spine. Upper Abdomen: Spleen is at the upper limits of normal size. IVC filter is partially imaged. A calcification is noted along the left renal vein which may represent an old thrombus, image 298. A small granuloma is noted in the liver. IMPRESSION: 1. Findings consistent with chronic thromboembolic disease as discussed in the body of report. Overall, no substantial interval change is noted in the disease burden since the prior CT dated 05/05/2014. 2. There are dilated central pulmonary arteries, which could suggest underlying pulmonary hypertension. 3. Multiple perfusion defects are noted on the PBV maps, worse in the right upper, lingula and left lower lobes. There are associated bronchial artery collaterals. 4. Lung findings consistent with chronic thromboembolic disease. Test Engine Evaluator: PSCB Transcribe Date/Time: Oct 06 2017 11:42A Dictated by : NORRIS CALDERÓN MD This examination was interpreted and the report reviewed and electronically signed by: NORRIS CALDERÓN MD on Oct 06 2017 12:09PM EST [id number] PROGRESS Observed: 10/06/2017 Status: COMPLETED Source: [place] 10:42 AM [facility] REPOSITORY HNO ID: [id number] Author: Ed Solomon Service: (none) Author Type: (none) Type: Progress Notes Filed: 10/06/2017 10:45 AM Note Text: Radiology Service Progress Note PATIENT NAME: Beti Garcia DATE OF SERVICE: October 06, 2017 TIME: 10:42 AM PATIENT IDENTITY VERIFICATION COMPLETED USING TWO (2) METHODS: Patient confirmed name verbally and ID band matches.. PATIENT GENDER DATA: Female. status: : No status: NO. PATIENT RELEVANT IMPLANT DATA REVIEWED: Yes RADIOLOGY DEPARTMENT: CT; Exam(s) Completed: PE Study PERIPHERAL IV DATA: Site assessment: Clean,Dry and Intact, Site disposition Left in for next appointment SIGNED BY: Ed Solomon October 06, 2017 10:42 AM PROGRESS Observed: 10/06/2017 Status: COMPLETED Source: [place] 10:17 AM [facility] REPOSITORY HNO ID: [id number] Author: Aditi CherryRn) KAREN Bear Service: Radiology Author Type: Registered Nurse Type: Progress Notes Filed: 10/06/2017 10:20 AM Note Text: Radiology Service Progress Note PATIENT NAME: Beti Garcia DATE OF SERVICE: October 06, 2017 TIME: 10:17 AM PATIENT WEIGHT: 222 LBS PATIENT IDENTITY VERIFICATION COMPLETED USING TWO (2) METHODS: Patient confirmed name verbally and ID band matches.. PATIENT GENDER DATA: Female. status: : No status: NO. CONTRAST INDUCED NEPHROPATHY RISK FACTORS: Patient age > 60 years and Diabetic: Yes. Current medication(s): Metformin. Patient currently has insulin pump?: No. CREATININE: Creatinine Date Value Ref Range Status 09/23/2017 0.65 0.58 - 0.96 mg/dL Final 04/09/2016 0.55 (L) 0.58 - 0.96 mg/dL Final 05/02/2015 0.71 0.70 - 1.40 mg/dL Final eGFR-All Other Races Date Value Ref Range Status 09/23/2017 >60 . Final Comment: eGFR (Estimated GFR) Units of measure: mL/min/1.73 meters squared eGFR is derived from the reexpressed MDRD Study equation using the following parameters: serum creatinine, age, gender and race. The creatinine assay has been calibrated to be traceable to IDMS. An eGFR <60 mL/min/1.73m2 for >3 months is consistent with chronic kidney disease. Refer to KDOQI guidelines for clinical interpretation. In patients with unstable renal function, e.g. those with acute kidney injury, the eGFR may not accurately reflect actual GFR. eGFR- Date Value Ref Range Status 09/23/2017 >60 Final P.O.C.T. RESULTS: N/A October 06, 2017 TREATMENT: No Hydration needed. ALLERGIES: Reviewed and unchanged CONTRAST ALLERGY: NO. IV SITE: Ambulatory: A peripheral IV was started in the nuclear medicine dept in the Right antecubital site with a Angio cath: 20 gauge. and A Saline lock was inserted per protocol IV SITE APPEARANCE: Clean,Dry and Intact SIGNED BY: Aditi Bear RN October 06, 2017 10:17 AM [facility] LUNG VENT / Observed: 10/06/2017 Status: F Source: [place] PERF VQ 10:00 AM [facility] REPOSITORY * * *Final Report* * * DATE OF EXAM: Oct 06 2017 10:00AM [facility] [id number] - NM LUNG VENT / PERF VQ / PROCEDURE REASON: Chronic thromboembolic pulmonary hypertension * * * * Physician Interpretation * * * * EXAMINATION: LUNG SCAN HISTORY: Assess for pulmonary embolism. Dyspnea. Chest pain. TECHNIQUE: 0.8 mCi Tc 99m DTPA aerosol inhaled 5.2 mCi Tc 99m MAA IV Comparison chest x-ray: 08/05/2010. RESULTS: There are a few small matched ventilation/perfusion abnormalities in both lungs, including in the mid right and left lungs. No mismatched perfusion defects are seen. IMPRESSION: Low probability of pulmonary embolism. Test Engine Evaluator: PSCErrol Transcribe Date/Time: Oct 06 2017 10:43A Dictated by : BRIDGET FAN MD This examination was interpreted and the report reviewed and electronically signed by: BRIDGET FAN MD on Oct 06 2017 10:58AM EST [id number] PROGRESS Observed: 10/06/2017 Status: COMPLETED Source: [place] 9:37 AM [facility] REPOSITORY [facility] ID: [id number] Author: Arcadio CherryRtCesar Masters Service: Nuclear Medicine Author Type: Patch Press Operator Type: Progress Notes Filed: 10/06/2017 9:53 AM Note Text: RADIOLOGY SERVICE PROGRESS NOTE SERVICE DATE: 10/06/2017 SERVICE TIME: 9:37 AM PATIENT IDENTITY VERIFICATION COMPLETED USING TWO (2) METHODS: Patient confirmed name and Date of verbally. PATIENT GENDER DATA: .female : No ALLERGIES: Reviewed and unchanged MEDICATIONS REVIEWED: No PATIENT RELEVANT IMPLANT DATA REVIEWED: Not Applicable CREATININE: Creatinine Date Value Ref Range Status 09/23/2017 0.65 0.58 - 0.96 mg/dL Final 04/09/2016 0.55 (L) 0.58 - 0.96 mg/dL Final 05/02/2015 0.71 0.70 - 1.40 mg/dL Final eGFR-All Other Races Date Value Ref Range Status 09/23/2017 >60 . Final Comment: eGFR (Estimated GFR) Units of measure: mL/min/1.73 meters squared eGFR is derived from the reexpressed MDRD Study equation using the following parameters: serum creatinine, age, gender and race. The creatinine assay has been calibrated to be traceable to IDMS. An eGFR <60 mL/min/1.73m2 for >3 months is consistent with chronic kidney disease. Refer to KDOQI guidelines for clinical interpretation. In patients with unstable renal function, e.g. those with acute kidney injury, the eGFR may not accurately reflect actual GFR. eGFR- Date Value Ref Range Status 09/23/2017 >60 Final P.O.C.T. RESULTS: N/A October 06, [address] PERFORMED: No IV SITE: Ambulatory: A peripheral IV was started in the Right antecubital site with a Angio cath: 20 gauge. POST EXAM PIV STATUS: Left in for next appointment PROCEDURE TYPE: VQ Scan: 0.8 mCi of Tc99m DTPA was inhaled. 5.5 mCi of Tc99m MAA was administered IV. ADMINISTRATION TIME: 944 PATIENT DISCHARGED TO: Ambulatory patient, left PA department area. A Diagnostic radioactive procedure has taken place, with no further precautions necessary other than routine body substance precautions. More information regarding radiation safety can be found using this link: [email or web address] SIGNATURE: Arcadio Masters RT PATIENT NAME: Beti Garcia DATE: October 06, 2017 TIME: 9:37 AM PAGER/CONTACT #: PROGRESS Observed: 10/02/2017 Status: COMPLETED Source: [place] 10:38 AM [facility] REPOSITORY HNO ID: [id number] Author: Bucky House Service: (none) Author Type: (none) Type: Progress Notes Filed: 10/02/2017 10:39 AM Note Text: CNCO Observed: 10/01/2017 Status: COMPLETED Source: [place] 12:00 AM [facility] REPOSITORY Letter Text October 01, 2017 nAika Pedraza, DO [address] [place] [address] Lona Alcantara, [employer] [address] [facility] [address] [place] [id number] NAME: Beti Garcia [facility] NO: [id number] : 1955 DATE OF SERVICE: 09/23/2017 Dear Doctors: It was a pleasure to see your patient Beti Garcia in the Pulmonary Department at the [facility]. Please see the attached summary and the test results for details. We appreciate having the opportunity to see your patient. If we can be of further assistance to you or if you have any questions regarding this report, please feel free to contact me. Sincerely, Neeraj Ochoa MD Staff Physician Respiratory [place] [facility]/francisca Enclosure: Visit Summary PROTHROMBIN TIME W/INR Collected: 09/29/2017 Status: F Source: SI[place] 1:[address] [facility] REPOSITORY Order Comment: Comments: Test to be done montly Comments: Test to be done montly TYPE CODE TESTS RESULT OUT OF RANGE REFERENCE UNITS LAB L300.4150 11.7-14.9 SECONDS High PROTIME 28.2 LAB L300.4200 Normal INR 2.6 Performed By: #### L300.3900 #### [facility] [address] [place], [place], [address] PROGRESS Observed: 09/23/2017 Status: COMPLETED Source: [place] 3:49 PM [facility] [place] REPOSITORY HNO ID: [id number] Author: Neeraj Ochoa Service: (none) Author Type: Physician Type: Progress Notes Filed: 09/23/2017 3:55 PM Note Text: Follow up for pulmonary hypertension Chief complaint: follow up HPI: Beti Garcia 61 year old female here for follow up of CTEPH treated with sildenafil and ambrisentan. Lost to follow up - did not call us to discuss testing for BPA Feels worse, limited by dyspnea mMRC grade 4 has gained weight no chest pain, hemoptysis or syncope Current Outpatient Prescriptions: iv contrast (will be provided with radiology test) CT Chest PE -Inject, intravenously, once for 1 dose.No IV access, insert saline lock prior to the beginning of sedation, infusion, injection of imaging exam. Discontinue saline lock post exam. If Pt. has a central line or IVAD, may access for administration according to line specific nursing protocol. Once exam is complete flush line and de-access according to line specific nursing protocol in the CT contrast administration guidelines link. sildenafil (REVATIO) 20 mg tablet Take 60 mg by mouth three times daily. metFORMIN ER (FORTAMET) 500 mg 24 hr tablet Take 500 mg by mouth daily at bedtime. hydrocortisone (ANUSOL-HC) 2.5 % rectal cream 1 application by RECTAL route twice daily. COMPOUNDED PRESCRIPTION OXYGEN uses 6 L oxygen per simple green mask 24 hours per day. warfarin (COUMADIN) 1 mg tablet Take 1 tablet by mouth daily as directed. nasal ointment, CCHS, oint Apply 1 application to affected area twice daily. ambrisentan (LETAIRIS) 10 mg tablet Take 1 tablet by mouth once daily. fluticasone-salmeterol (ADVAIR DISKUS) 250-50 mcg/dose dsdv Inhale 1 Puff as instructed twice daily. Rinse and gargle mouth with water after each use. pravastatin (PRAVACHOL) 40 mg tablet Take 1 tablet by mouth daily at bedtime. tolterodine (DETROL) 2 mg tablet Take 1 tablet by mouth twice daily. desvenlafaxine ER (PRISTIQ) 100 mg 24 hr tablet Take 1 tablet by mouth once daily. OLANZapine (ZYPREXA) 2.5 mg tablet Take 1 tablet by mouth daily at bedtime. spironolactone (ALDACTONE) 50 mg tablet Take 1 tablet by mouth once daily. [facility] [place]: Basic Metabolic Panel. Please fax results to [phone]. DX: V58.69 furosemide (LASIX) 40 mg tablet Take 1 tablet by mouth twice daily. omeprazole (PRILOSEC) 20 mg capsule Take 20 mg by mouth once daily. Historic med metOLAzone 5 mg tablet 2.5 mg. one tablet on Thursday and thursday potassium chloride SR 20 mEq tablet Take 1 tablet by mouth three times daily. COMPOUNDED PRESCRIPTION LABWORK: Basic Metabolic Panel. Please fax results to [phone]. DX: V58.69 warfarin (COUMADIN) 3 mg tablet Take 1 tablet by mouth daily as directed. Diltiazem HCl (CARDIZEM CD) 360 mg 24 hr capsule Take 1 capsule by mouth once daily. alprazolam(XANAX 1 MG TAB) 2-3 tablets per day for anxiety ferrous sulfate(SLOW FE 142 MG (45 MG IRON) TAB) one daily No current facility-administered medications for this visit. PHYSICAL EXAM: GENERAL: alert and active in no apparent distress CARDIOVASCULAR : RRR, normal S1 and S2; no murmur LLSB; no gallop or rub LUNGS: clear to auscultation EXTREMITIES: No clubbing, cyanosis, or edema. DATA: Labs: Component Latest Ref Rng AND Units 09/23/2017 WBC 3.70 - 11.00 k/uL 8.13 RBC 3.90 - 5.20 m/uL 5.20 Hemoglobin 11.5 - 15.5 g/dL 14.7 Hematocrit 36.0 - 46.0 % 45.2 MCV 80.0 - 100.0 fL 86.9 MCH 26.0 - 34.0 pG 28.3 MCHC 30.5 - 36.0 g/dL 32.5 RDW-CV 11.5 - 15.0 % 13.6 Platelet Count 150 - 400 k/uL 195 MPV 9.0 - 12.7 fL 10.9 Neut% % 74.5 Abs Neut (ANC) 1.45 - 7.50 k/uL 6.06 Lymph% % 14.8 Abs Lymph 1.00 - 4.00 k/uL 1.20 Starr% % 6.9 Abs Starr <0.87 k/uL 0.56 Eosin% % 3.3 Abs Eosin <0.46 k/uL 0.27 Baso% % 0.5 Abs Baso <0.11 k/uL 0.04 Nucleated Reds 0 /100 WBC 0.0 Absolute nRBC <0.01 k/uL <0.01 Diff Type Auto Diff Protein, Total 6.3 - 8.0 g/dL 6.5 Albumin 3.9 - 4.9 g/dL 4.0 Calcium 8.5 - 10.2 mg/dL 9.9 Bilirubin, Total 0.2 - 1.3 mg/dL 0.3 Alkaline Phosphatase 32 - 117 U/L 92 AST 13 - 35 U/L 18 Glucose 74 - 99 mg/dL 186 (H) BUN 7 - 21 mg/dL 12 Creatinine 0.58 - 0.96 mg/dL 0.65 Sodium 136 - 144 mmol/L 135 (L) Potassium 3.7 - 5.1 mmol/L 4.1 Chloride 97 - 105 mmol/L 96 (L) CO2 22 - 30 mmol/L 28 Anion Gap 9 - 18 mmol/L 11 ALT 7 - 38 U/L 23 eGFR- >60 eGFR-All Other Races . >60 NT Pro BNP <125 pg/mL 54 Walk test Six Minute Walk Test for This Encounter ? Oxygen Device Liters FIO2 SpO2% HR Activity Feet Speed (MPH) Flag ? NRB 15 99 63 Resting ? NRB 15 98 112 Six Minute Walk 690 1.3 ? NRB 15 98 98 Recovery 1 minute post ? NRB 15 99 89 Recovery 2 minute post ? NRB 15 100 82 Recovery 3 minute post ? ? ? General Information ? Height Weight Smoking Status Pulse Oximetry Site Oximeter Pre Blood Pressure Post Blood Pressure Total Time Spent (min) ? ? 163.8 cm (5' 4.49) ? 103 kg (227 lb) ? Ex-smoker ? Forehead ? Masimo ? 142/65 ? 186/81 ? 30 ? ? ? _ ? Distance Walked (meters) Distance Walked (feet) Female Predicted Walk Distance (feet) Female Lower Limit of Normal (feet) Female % Predicted Total Duration Of The Stops (seconds) ? ? 210.31 ? 690 ? 1354 ? 898 ? 51 ? 21 ? _ ? Lowest SpO2 During 6 Minute Walk Pre-Micheal Dyspnea Rating Pre-Micheal Fatigue Rating Post Micheal Dyspnea Rating Post Micheal Fatigue Rating O2 Supply Carrier Walking Assistance/Device ? ? 97 % ? 0.5 ? 2 ? 7 ? 8 ? 3 Wheel Walker ? -- TTE Height: 162.56 cm BSA: 2.03 m? Weight: 91.63 kg ?BMI: 34.7 kg/m? ? Heart rate ? ? 64 bpm Blood pressure 151/69 mmHg Color Doppler was utilized to interrogate the cardiac valves assessed and spectral ?Doppler was utilized to determine the flow velocities and pressure gradients reported in this exam. ? MEASUREMENTS: ?Value ? Indexed ? ?Normal Max aortic dimension ? ? 3.7 cm ?1.82 cm/m? Left atrium diameter ? ? 4.1 cm (M-Mode) Left atrial volume ? ? ? 78 ml (biplane A-L) 38 ml/m? ? Carol <= 34 LV ID (diastole) ? 4.9 cm (2D) LV ID (systole) ?3.1 cm (2D) IVS, leaflet tips ?0.6 cm (2D) Posterior wall thickness 1.1 cm (2D) Left ventricular mass ? ?148 g (2D) ?73 g/m? LV stroke volume ? 77 ml (2D biplane) LV end diastolic volume ?119 ml (2D biplane) 58.5 ml/m? 29<=EDVi<62 LV end systolic volume ? 42 ml (2D biplane) ?20.7 ml/m? Ejection Fraction ?65 % (2D biplane) ?EF > 54 ? FINDINGS: ? LEFT VENTRICLE The left ventricle is normal in size. Left ventricular systolic function is normal. Indeterminate left ventricular diastolic dysfunction due to inconsistent or technically suboptimal data. Mitral annular lateral E/e': 8.4. Mitral annular septal E/e': 10.4. Wall Motion: All scored segments are normal. ? ? RIGHT VENTRICLE The right ventricle is normal in size. Right ventricular systolic function is normal. RV systolic tissue Doppler velocity ?is 10.0 cm/s. Tricuspid annular displacement is 2.3 cm. Estimated right ventricular systolic pressure is likely underestimated due to a weak or incomplete tricuspid regurgitation signal and is, at least, 34 mmHg consistent with normal pulmonary artery pressures. Estimated right atrial pressure ?is 5 mmHg. ? LEFT ATRIUM The left atrial cavity is mildly dilated. Pulmonary Veins: The pulmonary venous pattern showed normal systolic flow. RIGHT ATRIUM The right atrial cavity is normal in size. Inferior Vena Cava: The inferior vena cava appears normal measuring 1.8 cm. The vessel decreases greater than 50 percent with inspiration. MITRAL VALVE There is trivial mitral valve regurgitation. There is no thickening. The pressure half time is 59 msec. The peak mitral E/A ratio is 1.02. The average mitral E/e' ratio is 9.4. The mitral flow deceleration time is 204 msec. ? TRICUSPID VALVE There is trivial tricuspid valve regurgitation. There is no thickening. ? AORTIC VALVE There is no aortic valve regurgitation. Tricuspid aortic valve. There is mild thickening. ? PULMONIC VALVE There is no pulmonic valve regurgitation. There is thickening. ? AORTA The visualized aorta is normal in size. Measurements - Sinus 3.7 cm. Sinotubular junction 2.7 cm. Mid ascending aorta 2.7 cm. PULMONARY ARTERIES The pulmonary arteries are unseen or not interrogated. ? PERICARDIUM There is an epicardial fat pad. ? CONCLUSIONS: - Exam indication: Re-evaluation of known pulmonary hypertension (to guide therapy) - The left ventricle is normal in size. Left ventricular systolic function is normal. EF = 65 ? 5% (2D biplane) Indeterminate left ventricular diastolic dysfunction due to inconsistent or technically suboptimal data. - The right ventricle is normal in size. Right ventricular systolic function is normal. - The left atrial cavity is mildly dilated. - There are no significant valvular abnormalities. - Exam was compared with the prior echocardiographic exam performed on 04/09/2016. There is no significant change on direct comparison of images. 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 >50% of that time was spent counseling and coordinating care regarding interpretation of symptoms and tests and diagnostic and therapeutic options. Neeraj Marie MD CNOV Observed: 09/23/2017 Status: COMPLETED Source: [place] 12:55 PM [facility] REPOSITORY Office Visit (PULMMN) BETI GARCIA ([id number]) 1955 F Date Time Provider Department 09/23/17 12:55 PM NEERAJ OCHOA PULMMN During your visit today, we recorded the following information about you: Temperature Respiration Blood pressure Weight 98.7 degrees 24/minute 141/47 103 kg Height 1.626 m Neeraj Ochoa MD 09/23/2017 3:55 PM Signed Follow up for pulmonary hypertension Chief complaint: follow up HPI: Beti Garcia 61 year old female here for follow up of CTEPH treated with sildenafil and ambrisentan. Lost to follow up - did not call us to discuss testing for BPA Feels worse, limited by dyspnea mMRC grade 4 has gained weight no chest pain, hemoptysis or syncope Current Outpatient Prescriptions: iv contrast (will be provided with radiology test) CT Chest PE -Inject, intravenously, once for 1 dose.No IV access, insert saline lock prior to the beginning of sedation, infusion, injection of imaging exam. Discontinue saline lock post exam. If Pt. has a central line or IVAD, may access for administration according to line specific nursing protocol. Once exam is complete flush line and de-access according to line specific nursing protocol in the CT contrast administration guidelines link. sildenafil (REVATIO) 20 mg tablet Take 60 mg by mouth three times daily. metFORMIN ER (FORTAMET) 500 mg 24 hr tablet Take 500 mg by mouth daily at bedtime. hydrocortisone (ANUSOL-HC) 2.5 % rectal cream 1 application by RECTAL route twice daily. COMPOUNDED PRESCRIPTION OXYGEN uses 6 L oxygen per simple green mask 24 hours per day. warfarin (COUMADIN) 1 mg tablet Take 1 tablet by mouth daily as directed. nasal ointment, CCHS, oint Apply 1 application to affected area twice daily. ambrisentan (LETAIRIS) 10 mg tablet Take 1 tablet by mouth once daily. fluticasone-salmeterol (ADVAIR DISKUS) 250-50 mcg/dose dsdv Inhale 1 Puff as instructed twice daily. Rinse and gargle mouth with water after each use. pravastatin (PRAVACHOL) 40 mg tablet Take 1 tablet by mouth daily at bedtime. tolterodine (DETROL) 2 mg tablet Take 1 tablet by mouth twice daily. desvenlafaxine ER (PRISTIQ) 100 mg 24 hr tablet Take 1 tablet by mouth once daily. OLANZapine (ZYPREXA) 2.5 mg tablet Take 1 tablet by mouth daily at bedtime. spironolactone (ALDACTONE) 50 mg tablet Take 1 tablet by mouth once daily. [facility] [place]: Basic Metabolic Panel. Please fax results to [phone]. DX: V58.69 furosemide (LASIX) 40 mg tablet Take 1 tablet by mouth twice daily. omeprazole (PRILOSEC) 20 mg capsule Take 20 mg by mouth once daily. Historic med metOLAzone 5 mg tablet 2.5 mg. one tablet on Thursday and thursday potassium chloride SR 20 mEq tablet Take 1 tablet by mouth three times daily. COMPOUNDED PRESCRIPTION LABWORK: Basic Metabolic Panel. Please fax results to [phone]. DX: V58.69 warfarin (COUMADIN) 3 mg tablet Take 1 tablet by mouth daily as directed. Diltiazem HCl (CARDIZEM CD) 360 mg 24 hr capsule Take 1 capsule by mouth once daily. alprazolam(XANAX 1 MG TAB) 2-3 tablets per day for anxiety ferrous sulfate(SLOW FE 142 MG (45 MG IRON) TAB) one daily No current facility-administered medications for this visit. PHYSICAL EXAM: GENERAL: alert and active in no apparent distress CARDIOVASCULAR : RRR, normal S1 and S2; no murmur LLSB; no gallop or rub LUNGS: clear to auscultation EXTREMITIES: No clubbing, cyanosis, or edema. DATA: Labs: Component Latest Ref Rng AND Units 09/23/2017 WBC 3.70 - 11.00 k/uL 8.13 RBC 3.90 - 5.20 m/uL 5.20 Hemoglobin 11.5 - 15.5 g/dL 14.7 Hematocrit 36.0 - 46.0 % 45.2 MCV 80.0 - 100.0 fL 86.9 MCH 26.0 - 34.0 pG 28.3 MCHC 30.5 - 36.0 g/dL 32.5 RDW-CV 11.5 - 15.0 % 13.6 Platelet Count 150 - 400 k/uL 195 MPV 9.0 - 12.7 fL 10.9 Neut% % 74.5 Abs Neut (ANC) 1.45 - 7.50 k/uL 6.06 Lymph% % 14.8 Abs Lymph 1.00 - 4.00 k/uL 1.20 Starr% % 6.9 Abs Starr <0.87 k/uL 0.56 Eosin% % 3.3 Abs Eosin <0.46 k/uL 0.27 Baso% % 0.5 Abs Baso <0.11 k/uL 0.04 Nucleated Reds 0 /100 WBC 0.0 Absolute nRBC <0.01 k/uL <0.01 Diff Type Auto Diff Protein, Total 6.3 - 8.0 g/dL 6.5 Albumin 3.9 - 4.9 g/dL 4.0 Calcium 8.5 - 10.2 mg/dL 9.9 Bilirubin, Total 0.2 - 1.3 mg/dL 0.3 Alkaline Phosphatase 32 - 117 U/L 92 AST 13 - 35 U/L 18 Glucose 74 - 99 mg/dL 186 (H) BUN 7 - 21 mg/dL 12 Creatinine 0.58 - 0.96 mg/dL 0.65 Sodium 136 - 144 mmol/L 135 (L) Potassium 3.7 - 5.1 mmol/L 4.1 Chloride 97 - 105 mmol/L 96 (L) CO2 22 - 30 mmol/L 28 Anion Gap 9 - 18 mmol/L 11 ALT 7 - 38 U/L 23 eGFR- >60 eGFR-All Other Races . >60 NT Pro BNP <125 pg/mL 54 Walk test Six Minute Walk Test for This Encounter ? Oxygen Device Liters FIO2 SpO2% HR Activity Feet Speed (MPH) Flag ? NRB 15 99 63 Resting ? NRB 15 98 112 Six Minute Walk 690 1.3 ? NRB 15 98 98 Recovery 1 minute post ? NRB 15 99 89 Recovery 2 minute post ? NRB 15 100 82 Recovery 3 minute post ? ? ? General Information ? Height Weight Smoking Status Pulse Oximetry Site Oximeter Pre Blood Pressure Post Blood Pressure Total Time Spent (min) ? ? 163.8 cm (5' 4.49) ? 103 kg (227 lb) ? Ex-smoker ? Forehead ? Masimo ? 142/65 ? 186/81 ? 30 ? ? ? _ ? Distance Walked (meters) Distance Walked (feet) Female Predicted Walk Distance (feet) Female Lower Limit of Normal (feet) Female % Predicted Total Duration Of The Stops (seconds) ? ? 210.31 ? 690 ? 1354 ? 898 ? 51 ? 21 ? _ ? Lowest SpO2 During 6 Minute Walk Pre-Micheal Dyspnea Rating Pre-Micheal Fatigue Rating Post Micheal Dyspnea Rating Post Micheal Fatigue Rating O2 Supply Carrier Walking Assistance/Device ? ? 97 % ? 0.5 ? 2 ? 7 ? 8 ? 3 Wheel Walker ? -- TTE Height: 162.56 cm BSA: 2.03 m? Weight: 91.63 kg ?BMI: 34.7 kg/m? ? Heart rate ? ? 64 bpm Blood pressure 151/69 mmHg Color Doppler was utilized to interrogate the cardiac valves assessed and spectral ?Doppler was utilized to determine the flow velocities and pressure gradients reported in this exam. ? MEASUREMENTS: ?Value ? Indexed ? ?Normal Max aortic dimension ? ? 3.7 cm ?1.82 cm/m? Left atrium diameter ? ? 4.1 cm (M-Mode) Left atrial volume ? ? ? 78 ml (biplane A-L) 38 ml/m? ? Carol <= 34 LV ID (diastole) ? 4.9 cm (2D) LV ID (systole) ?3.1 cm (2D) IVS, leaflet tips ?0.6 cm (2D) Posterior wall thickness 1.1 cm (2D) Left ventricular mass ? ?148 g (2D) ?73 g/m? LV stroke volume ? 77 ml (2D biplane) LV end diastolic volume ?119 ml (2D biplane) 58.5 ml/m? 29<=EDVi<62 LV end systolic volume ? 42 ml (2D biplane) ?20.7 ml/m? Ejection Fraction ?65 % (2D biplane) ?EF > 54 ? FINDINGS: ? LEFT VENTRICLE The left ventricle is normal in size. Left ventricular systolic function is normal. Indeterminate left ventricular diastolic dysfunction due to inconsistent or technically suboptimal data. Mitral annular lateral E/e': 8.4. Mitral annular septal E/e': 10.4. Wall Motion: All scored segments are normal. ? ? RIGHT VENTRICLE The right ventricle is normal in size. Right ventricular systolic function is normal. RV systolic tissue Doppler velocity ?is 10.0 cm/s. Tricuspid annular displacement is 2.3 cm. Estimated right ventricular systolic pressure is likely underestimated due to a weak or incomplete tricuspid regurgitation signal and is, at least, 34 mmHg consistent with normal pulmonary artery pressures. Estimated right atrial pressure ?is 5 mmHg. ? LEFT ATRIUM The left atrial cavity is mildly dilated. Pulmonary Veins: The pulmonary venous pattern showed normal systolic flow. RIGHT ATRIUM The right atrial cavity is normal in size. Inferior Vena Cava: The inferior vena cava appears normal measuring 1.8 cm. The vessel decreases greater than 50 percent with inspiration. MITRAL VALVE There is trivial mitral valve regurgitation. There is no thickening. The pressure half time is 59 msec. The peak mitral E/A ratio is 1.02. The average mitral E/e' ratio is 9.4. The mitral flow deceleration time is 204 msec. ? TRICUSPID VALVE There is trivial tricuspid valve regurgitation. There is no thickening. ? AORTIC VALVE There is no aortic valve regurgitation. Tricuspid aortic valve. There is mild thickening. ? PULMONIC VALVE There is no pulmonic valve regurgitation. There is thickening. ? AORTA The visualized aorta is normal in size. Measurements - Sinus 3.7 cm. Sinotubular junction 2.7 cm. Mid ascending aorta 2.7 cm. PULMONARY ARTERIES The pulmonary arteries are unseen or not interrogated. ? PERICARDIUM There is an epicardial fat pad. ? CONCLUSIONS: - Exam indication: Re-evaluation of known pulmonary hypertension (to guide therapy) - The left ventricle is normal in size. Left ventricular systolic function is normal. EF = 65 ? 5% (2D biplane) Indeterminate left ventricular diastolic dysfunction due to inconsistent or technically suboptimal data. - The right ventricle is normal in size. Right ventricular systolic function is normal. - The left atrial cavity is mildly dilated. - There are no significant valvular abnormalities. - Exam was compared with the prior echocardiographic exam performed on 04/09/2016. There is no significant change on direct comparison of images. 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 >50% of that time was spent counseling and coordinating care regarding interpretation of symptoms and tests and diagnostic and therapeutic options. Neeraj Marie MD Referring Provider: SELF [[id number]] Allergies As of Date: 09/23/2017 Noted Allergy Reaction NITRATES 09/17/2012 14 - Other: See Comments ADHESIVE TAPE (ROSINS) 11/06/2003 Date Reviewed: 09/23/2017 Reviewed by: Fatimah CherryRn) KAREN Esqueda - Fully Assessed Reason for Visit: Recheck [92] Primary Visit Diagnosis:CTEPH (chronic thromboembolic pulmonary hypertension) [I27.24] Order(s):CT CHEST W IVCON PE [[id number]] Order #: [id number] FUTURE iv contrast (will be provided with radiology test)CT Chest PE -Inject, intravenously, once for 1 dose.No IV access, insert saline lock prior to the beginning of sedation, infusion, injection of imaging exam. Discontinue saline lock post exam. If Pt. has a central line or IVAD, may access for administration according to line specific nursing protocol. Once exam is complete flush line and de-access according to line specific nursing protocol in the CT contrast administration guidelines link.Disp: 1 EachRfl: 0 NM LUNG VENT / PERF VQ [[id number]] Order #: [id number] FUTURE Prescriptions as of 09/23/2017 Sig: IV CONTRAST (RADIOLOGY PROCED* CT Chest PE -Inject, intraven* SILDENAFIL (ANTIHYPERTENSIVE)* Take 60 mg by mouth three harsha* METFORMIN ER 500 MG TABLET,EX* Take 500 mg by mouth daily at* HYDROCORTISONE 2.5 % TOPICAL * 1 application by RECTAL route* COMPOUNDED PRESCRIPTION OXYGEN uses 6 L oxygen per s* WARFARIN 1 MG TABLET Take 1 tablet by mouth daily * NASAL OINTMENT ([facility]) Apply 1 application to affect* AMBRISENTAN 10 MG TABLET Take 1 tablet by mouth once d* FLUTICASONE 250 MCG-SALMETERO* Inhale 1 Puff as instructed t* PRAVASTATIN 40 MG TABLET Take 1 tablet by mouth daily * TOLTERODINE 2 MG TABLET Take 1 tablet by mouth twice * DESVENLAFAXINE SUCCINATE ER 1* Take 1 tablet by mouth once d* OLANZAPINE 2.5 MG TABLET Take 1 tablet by mouth daily * SPIRONOLACTONE 50 MG TABLET Take 1 tablet by mouth once d* MISCELLANEOUS MEDICAL SUPPLY * LABWORK: Basic Metabolic Pane* FUROSEMIDE 40 MG TABLET Take 1 tablet by mouth twice * OMEPRAZOLE 20 MG CAPSULE,FEMI* Take 20 mg by mouth once jewel* METOLAZONE 5 MG TABLET 2.5 mg. one tablet on Thursday * POTASSIUM CHLORIDE ER 20 MEQ * Take 1 tablet by mouth three * COMPOUNDED PRESCRIPTION LABWORK: Basic Metabolic Pane* WARFARIN 3 MG TABLET Take 1 tablet by mouth daily * * DILTIAZEM CD 360 MG CAPSULE,E* Take 1 capsule by mouth once * * XANAX 1 MG TABLET 2-3 tablets per day for anxie* * SLOW FE 142 MG (45 MG IRON) T* one daily Problem List As Of Date 09/23/2017 Noted Resolved Morbid obesity (HCC) [E66.01] INVALID FOR* More... 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 Proteinuria [R80.9] INVALID FOR* Lupus anticoagulant positive [R76.0] INVALID FOR* More... Pulmonary hypertension (HCC) [I27.20] INVALID FOR* More... 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 Hypertension [I10] INVALID FOR* More... Diabetes mellitus (HCC) [E11.9] INVALID FOR* More... Depression [F32.9] INVALID FOR* More... Prescriptions ordered this encounter Disp Refills Start End IV CONTRAST (RADIOLOGY PROCEDURE) 1 Ea* 0 09/23/2017 09/24/2017 Class: In Office Sig: CT Chest PE -Inject, intravenously, once for 1 dose.No IV access, insert saline lock prior to the beginning of sedation, infusion, injection of imaging exam. Discontinue saline lock post exam. If Pt. has a central line or IVAD, may access for administration according to line specific nursing protocol. Once exam is complete flush line and de-access according to line specific nursing protocol in the CT contrast administration guidelines link. Encounter Status:Closed by NEERAJ OCHOA MD on 09/23/17 PROCEDURE Observed: 09/23/2017 Status: COMPLETED Source: [place] 12:35 PM [facility] REPOSITORY HNO ID: [id number] Author: Cristiane Peralta, REECE Service: (none) Author Type: Registered Resp Therapist Type: Procedures Filed: 09/23/2017 4:40 PM Note Text: RESPIRATORY THERAPY SIX MINUTE WALK TEST OXIMETRY REPORT Six Minute Walk Test for This Encounter Oxygen Device Liters FIO2 SpO2% HR Activity Feet Speed (MPH) Flag NRB 15 99 63 Resting NRB 15 98 112 Six Minute Walk 690 1.3 NRB 15 98 98 Recovery 1 minute post NRB 15 99 89 Recovery 2 minute post NRB 15 100 82 Recovery 3 minute post General Information Height Weight Smoking Status Pulse Oximetry Site Oximeter Pre Blood Pressure Post Blood Pressure Total Time Spent (min) 163.8 cm (5' 4.49) 103 kg (227 lb) Ex-smoker Forehead Masimo 142/65 186/81 30 _ Distance Walked (meters) Distance Walked (feet) Female Predicted Walk Distance (feet) Female Lower Limit of Normal (feet) Female % Predicted Total Duration Of The Stops (seconds) 210.31 690 1354 898 51 21 _ Lowest SpO2 During 6 Minute Walk Pre-Micheal Dyspnea Rating Pre-Micheal Fatigue Rating Post Micheal Dyspnea Rating Post Micheal Fatigue Rating O2 Supply Carrier Walking Assistance/Device 97 % 0.5 2 7 8 3 Wheel Walker -- Six Minute Walk Trend (Previous Encounters) None SIGNATURE: Cristiane Peralta RRT PATIENT NAME: Beti Garcia DATE: September 23, 2017 TIME: 12:35 PM _ Comments: resting RA SpO2 90%, BP repeated 5min after walk 155/70 The patient completed the six minute walk test with 1 stop. Total Duration Of The Stops (seconds): 21. The patient required Non-Rebreather Liters: 15 to complete the test. The distance the patient walked in six minutes is moderately reduced. The six minute walk distance today demonstrates a clinically significant decrease (470 feet decrease), when compared to the historically highest six minute walk distance from a test dated 03/19/09. Today's distance represents a 190 feet decrease compared to the last visit on 04/09/16. The patient perceived their dyspnea during the six minute walk test to be 7-Very severe on the modified Micheal scale. The patient perceived their fatigue during the six minute walk test to be 8 - on the modified Micheal scale. I have reviewed the findings and made appropriate revisions as needed. SIGNATURE: Justice Hendrickson MD PATIENT NAME: Beti Garcia DATE: September 23, 2017 TIME: 4:40 PM COMP METABOLIC PANEL Collected: 09/23/2017 Status: F Source: [place] 10:00 AM [facility] REPOSITORY TYPE CODE TESTS RESULT OUT OF REFERENCE UNITS RANGE LAB TP 6.3-8.0 g/dL Protein, Total 6.5 LAB ALB 3.9-4.9 g/dL Albumin 4.0 LAB CA 8.5-10.2 mg/dL Calcium, Total 9.9 LAB TBIL 0.2-1.3 mg/dL Bilirubin, Total 0.3 LAB ALKP 32-117 U/L Alkaline Phosphatase 92 LAB AST 13-35 U/L AST 18 LAB GLU 74-99 mg/dL Glucose High 186 Result Comment: The [place] Diabetes Association (ADA) provides guidance for cutoff values for fasting glucose and random glucose. The ADA defines fasting as no caloric intake for at least 8 hours. Fas ting plasma glucose results between 100 to 125 mg/dL indicate increased risk for diabetes (prediabetes). Fasting plasma glucose results greater than or equal to 126 mg/dL meet the criteria for diagnosis of diabetes. In the absence of unequivocal hyperglycemia, results should be confirmed by repeat testing. In a patient with classic symptoms of hyperglycemia or hyperglycemic crisis, random plasma glucose results greater than or equal to 200 mg/dL meet the criteria for diagnosis of diabetes. Reference: Standards of Medical Care in Diabetes 2016, [place] [employer]. Diabetes Care. 2016.39(Suppl 1). LAB BUN 7-21 mg/dL BUN 12 LAB CRET 0.58-0.96 mg/dL Creatinine 0.65 LAB NA 136-144 mmol/L Sodium Low 135 LAB K 3.7-5.1 mmol/L Potassium 4.1 LAB CL 97-105 mmol/L Chloride Low 96 LAB CO2 22-30 mmol/L CO2 28 LAB AGAP 9-18 mmol/L Anion Gap 11 LAB ALT 7-38 U/L ALT 23 LAB GFRAA eGFR- Amer. >60 LAB GFRNAA . eGFR-All Other Races >60 Result Comment: eGFR (Estimated GFR) Units of measure: mL/min/1.73 meters squared eGFR is derived from the reexpressed MDRD Study equation using the following parameters: serum creatinine, age, gender and race. The creatinine assay has been calibrated to be traceable to IDMS. An eGFR <60 mL/min/1.73m2 for >3 months is consistent with chronic kidney disease. Refer to KDOQI guidelines for clinical interpretation. In patients with unstable renal function, e.g. those with acute kidney injury, the eGFR may not accurately reflect actual GFR. Performed By: #### CMP, NTBNP, CBCDIF #### [facility] [address] [place], [place] [address] NT PRO BNP Collected: 09/23/2017 Status: F Source: [place] 10:00 AM [facility] REPOSITORY TYPE CODE TESTS RESULT OUT OF REFERENCE UNITS RANGE LAB PBNP <125 pg/mL PRO B Natr 54 Peptide Performed By: #### CMP, NTBNP, CBCDIF #### [facility] [address] [place], [place] [address] CBC AND DIFFERENTIAL Collected: 09/23/2017 Status: F Source: [place] 10:00 AM [facility] REPOSITORY TYPE CODE TESTS RESULT OUT OF REFERENCE UNITS RANGE LAB WBC 3.70-11.00 k/uL WBC 8.13 LAB RBC 3.90-5.20 m/uL RBC 5.20 LAB HGB 11.5-15.5 g/dL Hemoglobin 14.7 LAB HCT 36.0-46.0 % Hematocrit 45.2 LAB MCV 80.0-100.0 fL MCV 86.9 LAB MCH 26.0-34.0 pG MCH 28.3 LAB MCHC 30.5-36.0 g/dL MCHC 32.5 LAB RDWCV 11.5-15.0 % RDW-CV 13.6 LAB PLTCT 150-400 k/uL Platelet Count 195 LAB MPV 9.0-12.7 fL MPV 10.9 LAB ANEUT % Neut% 74.5 LAB AANEUT 1.45-7.50 k/uL Abs Neut 6.06 LAB ALYMP % Lymph% 14.8 LAB AALYMP 1.00-4.00 k/uL Abs Lymph 1.20 LAB AMONO % Starr% 6.9 LAB AAMONO <0.87 k/uL Abs Starr 0.56 LAB AEOS % Eosin% 3.3 LAB AAEOS <0.46 k/uL Abs Eosin 0.27 LAB ABASO % Baso% 0.5 LAB AABASO <0.11 k/uL Abs Baso 0.04 LAB AUNRBC 0 /100 WBC NRBCs 0.0 LAB ABNRBC <0.01 k/uL Absolute nRBC <0.01 LAB DTYP DTYPE Auto Diff Performed By: #### CMP, NTBNP, CBCDIF #### [facility] [address] [place], [place] [address] INTERNAL MEDICINE Observed: 09/10/2017 Status: F Source: [place] OFFICE VISIT 2:[address] [facility] [address] [place] [address] [place] [address] OFFICE VISIT Date of Service: 08/26/17 MR#: [id number] Acct: [id number] Name: BETI GARCIA Rep #: [id number] : 1955 Provider: Anika Pedraza DO Age/Sex: 62/F Location[place] [facility] Status: Signed Intake Vital Signs08/26/17 Height 5 ft 4 in 08/26/17 Weight: 231 lb 08/26/17 Body Mass Index (BMI) 39.6 08/26/17 Blood Pressure 152/76 Intake Visit Reasons: 1 MO FU Chief Complaint: follow-up visit Is patient in pain?: No Allergies nitroglycerin Adverse Reaction (Verified 08/26/17 15:50) Other Medications Ambrisentan [Letairis] 10 mg PO DAILY 04/21/16 [History Confirmed 08/26/17] Desvenlafaxine Succinate [Pristiq] 100 mg PO DAILY 04/21/16 [History Confirmed 08/26/17] Ferrous Sulfate [Slow Release Iron] 47.5 mg PO QHS 04/21/16 [History Confirmed 08/26/17] Metolazone [Zaroxolyn] 2.5 mg PO DAILY 04/21/16 [History Confirmed 08/26/17] Olanzapine [Zyprexa] 2.5 mg PO DAILY 04/21/16 [History Confirmed 08/26/17] Omeprazole [Prilosec] 20 mg PO DAILY 04/21/16 [History Confirmed 08/26/17] Oxygen, Home [Home Oxygen] 5 l NASAL CONT 04/21/16 [History Confirmed 08/26/17] Pravastatin [Pravachol] 40 mg PO QHS 04/21/16 [History Confirmed 08/26/17] Sildenafil Citrate [Sildenafil] 20 mg PO TID 04/21/16 [History Confirmed 08/26/17] Tolterodine Tartrate [Tolterodine Tartrate ER] 2 mg PO BID 04/21/16 [History Confirmed 08/26/17] Warfarin [Coumadin ([facility])] 4 mg PO DAILY 04/21/16 [History Confirmed 08/26/17] cholecalciferol (vitamin D3) 2,000 unit capsule 2,000 unit PO ONCE 07/29/17 [History Confirmed 08/26/17] metformin ER 500 mg tablet,extended release 24 hr 500 mg PO QDAY 07/29/17 [History Confirmed 08/26/17] multivitamin capsule 1 cap PO QAM 07/29/17 [History Confirmed 08/26/17] warfarin 3 mg tablet 3 mg PO DAILY #90 tab 07/29/17 [Rx Confirmed 08/26/17] alprazolam ER 1 mg tablet,extended release 24 hr 1 mg PO BID #180 tab 08/26/17 [Rx Confirmed 08/26/17] diltiazem ER 360 mg tablet,extended release 24 hr 360 mg PO DAILY #90 tab 08/26/17 [Rx Confirmed 08/26/17] fluticasone 250 mcg-salmeterol 50 mcg/dose blistr powdr for inhalation 1 inh INHALATION DAILY #90 ea 08/26/17 [Rx Confirmed 08/26/17] furosemide 40 mg tablet 40 mg PO BID #180 tab 08/26/17 [Rx Confirmed 08/26/17] potassium chloride ER 20 mEq tablet,extended release(part/cryst) 20 meq PO TID #270 tab 08/26/17 [Rx Confirmed 08/26/17] spironolactone 50 mg tablet 50 mg PO DAILY #90 tab 08/26/17 [Rx Confirmed 08/26/17] PFSH Medical History COPD (chronic obstructive pulmonary disease) (Chronic) Claustrophobia (Chronic) Anxiety (Chronic) Depression (Chronic) TIA (transient ischemic attack) (Acute) Type 2 diabetes mellitus (Chronic) Atrial fibrillation (Chronic) Lupus anticoagulant disorder (Chronic) Pulmonary arterial hypertension (Chronic) Surgical History History of cholecystectomy (Acute) History of tonsillectomy (Acute) history of bunion surgery (Acute) Family History Mother COPD (chronic obstructive pulmonary disease) Cancer melanoma Father Heart disease Alcoholism Grandmother Cancer Grandfather Parkinsons disease Social History Smoking Status: Former smoker HPI HPI Chief Complaint: follow-up visit Details: BETI GARCIA, is a 62 F who presents to the office today for a follow-up on her primary pulmonary hypertension as well as evaluation of her anticoagulation status. ROS Const Constitutional: No chills, fatigue, fever(s), frequent falls, malaise, weakness, sleep problems or change in appetite Eyes Eyes: No blurry vision, change in vision, double vision, discharge or visual disturbances ENT ENT: No abnormal hearing, ear pain, ear pressure, tinnitus or dizziness/vertigo Resp Respiratory: Positive for cough Cough: Yes productive; no shortness of breath or wheezing Cardio Cardiology: Positive for palpitations (Occassional); no chest pain at rest, chest pain with exertion, shortness of breath, dyspnea on exertion, generalized swelling, irregular heart rhythm, lightheadedness, orthopnea or fast heart rate Gastro GI: No abdominal pain, change in bowel habits, constipation, diarrhea, nausea/dyspepsia or vomiting Genitourinary-Female: No difficulty urinating, burning urination, painful urination, urinary incontinence, urinary frequency, urinary urgency, urinary hesitancy, urinary retention, Frequent nighttime urination/ nocturia, sexual problems, genital lesions, abnormal vaginal bleeding, pelvic pain, vaginal dryness, vaginal odor or Vaginal Itching Musc Musculoskeletal: Positive for joint pain and back pain; no joint swelling, limited range of motion, muscle weakness, numbness or tingling Skin Skin: No change in skin color, itching, rash or wounds Neuro Neurology: No frequent falls, weakness, abnormal hearing, numbness, tingling, unsteady gait/balance, dizziness, loss of vision, memory loss or visual disturbances Psych Psychiatric: No memory loss, Positive for anxiety, No change in appetite, Positive for depression, No Thoughts of harming yourself/Others Endo Endocrine: No fatigue, increased thirst/drinking, increased hunger or increased urination Aller/Imm Allergy/Immunologic: No wheezing, itchy eyes or seasonal allergy symptoms Arden/Lymp Hematologic/Lymphatic: Positive for easy bleeding and easy bruising; no enlarged lymph nodes Exam Const General: cooperative Nutritional Appearance: obese Orientation: oriented x3 Resp Effort AND Inspection: normal respiratory effort, symmetric chest movement Auscultation: Bilateral: Clear to Auscultation, Diminished Lung Sounds Cardio Rhythm: abnormal rhythm regularly irregular Musc Musculoskeletal: No muscle weakness Extrem General: normal to inspection, no pedal edema, cyanosis (both lower limbs) Assessment AND Plan Problems 1. Pulmonary arterial hypertension I27.21 2. COPD (chronic obstructive pulmonary disease) J44.9 3. Anxiety F41.9 4. Depression F32.9 5. Type 2 diabetes mellitus E11.9 6. Atrial fibrillation I48.91 Plan Patient has primary pulmonary hypertension causing her dyspnea she also has a lot of overlying anxiety and her obesity complicates the other problems. She seems stable we discussed her problems for medications her refills and her lab work and I will follow her closely on a routine basis. Medications New: Changed: Plan Detail Follow Up 2 Months Coding Level of Care Code Off vis,est,level 3 Diagnoses Pulmonary arterial hypertension I27.21 COPD (chronic obstructive pulmonary disease) J44.9 Anxiety F41.9 Depression F32.9 Type 2 diabetes mellitus E11.9 Atrial fibrillation I48.91 09/10/17 1444 <Electronically signed by Anika Pedraza DO> Date Anika Pedraza DO Cosigner Signature: Date (if applicable) CC: PROTHROMBIN TIME W/INR Collected: 08/25/2017 Status: F Source: [place] 3:[address] [facility] REPOSITORY TYPE CODE TESTS RESULT OUT OF RANGE REFERENCE UNITS LAB L300.4150 11.7-14.9 SECONDS High PROTIME 26.7 LAB L300.4200 Normal INR 2.5 Performed By: #### L300.3900 #### [facility] [address] [place], [place], [address] PROTHROMBIN TIME W/INR Collected: 07/31/2017 Status: F Source: SILEX 1:[address] [facility] REPOSITORY TYPE CODE TESTS RESULT OUT OF RANGE REFERENCE UNITS LAB L300.4150 11.7-14.9 SECONDS High PROTIME 27.8 LAB L300.4200 Normal INR 2.6 Performed By: #### L300.3900, L501.9985 #### [facility] [address] [place], [address] HEMOGLOBIN A1C Collected: 07/31/2017 Status: F Source: SI[place] 1:[address] [facility] REPOSITORY TYPE CODE TESTS RESULT OUT OF RANGE REFERENCE UNITS LAB L501.9985 4.2-6.3 % High HGB A1C 6.9 Performed By: #### L300.3900, L501.9985 #### [facility] [address] [place], [place], [address] INTERNAL MEDICINE Observed: 07/29/2017 Status: F Source: [place] OFFICE VISIT 4:[address] [facility] Internal Medicine [address] [place] [address] [place] [address] OFFICE VISIT Date of Service: 07/29/17 MR#: [id number] Acct: [id number] Name: BETI GARCIA Rep #: [id number] : 1955 Provider: Anika Pedraza DO Age/Sex: 62/F Location: [facility] Status: Signed Intake Vital Signs07/29/17 Height 5 ft 4 in 07/29/17 Weight: 224 lb 07/29/17 Body Mass Index (BMI) 38.4 07/29/17 Blood Pressure 145/81 07/29/17 Blood Pressure Location Lt brachial Intake Visit Reasons: 1 MO FU Chief Complaint: follow-up visit Is patient in pain?: No Allergies nitroglycerin Adverse Reaction (Verified 08/30/16 05:47) Other Medications Alprazolam [Xanax Xr] 1 mg PO BID 04/21/16 [History Confirmed 07/29/17] Ambrisentan [Letairis] 10 mg PO DAILY 04/21/16 [History Confirmed 07/29/17] Desvenlafaxine Succinate [Pristiq] 100 mg PO DAILY 04/21/16 [History Confirmed 07/29/17] Diltiazem HCl [Diltiazem ER] 360 mg PO DAILY 04/21/16 [History Confirmed 07/29/17] Ferrous Sulfate [Slow Release Iron] 47.5 mg PO QHS 04/21/16 [History Confirmed 07/29/17] Fluticasone/Salmeterol [Advair 250/50 Mcg Diskus] 1 puff INHALATION DAILY 04/21/16 [History Confirmed 07/29/17] Furosemide 40 mg PO BID 04/21/16 [History Confirmed 07/29/17] Metolazone [Zaroxolyn] 2.5 mg PO DAILY 04/21/16 [History Confirmed 07/29/17] Olanzapine [Zyprexa] 2.5 mg PO DAILY 04/21/16 [History Confirmed 07/29/17] Omeprazole [Prilosec] 20 mg PO DAILY 04/21/16 [History Confirmed 07/29/17] Oxygen, Home [Home Oxygen] 5 l NASAL CONT 04/21/16 [History Confirmed 04/21/16] Potassium Chloride [K-Dur] 20 meq PO TID 04/21/16 [History Confirmed 07/29/17] Pravastatin [Pravachol] 40 mg PO QHS 04/21/16 [History Confirmed 07/29/17] Sildenafil Citrate [Sildenafil] 20 mg PO TID 04/21/16 [History Confirmed 04/21/16] Spironolactone [Aldactone] 50 mg PO DAILY 04/21/16 [History Confirmed 07/29/17] Tolterodine Tartrate [Tolterodine Tartrate ER] 2 mg PO BID 04/21/16 [History Confirmed 07/29/17] Warfarin [Coumadin (PBKC)] 4 mg PO DAILY 04/21/16 [History Confirmed 07/29/17] cholecalciferol (vitamin D3) 2,000 unit capsule 2,000 unit PO ONCE 07/29/17 [History Confirmed 07/29/17] metformin ER 500 mg tablet,extended release 24 hr 500 mg PO QDAY 07/29/17 [History Confirmed 07/29/17] multivitamin capsule 1 cap PO QAM 07/29/17 [History Confirmed 07/29/17] warfarin 3 mg tablet 3 mg PO DAILY #90 tab 07/29/17 [Rx Confirmed 07/29/17] PFSH Medical History COPD (chronic obstructive pulmonary disease) (Chronic) Claustrophobia (Chronic) Anxiety (Chronic) Depression (Chronic) TIA (transient ischemic attack) (Acute) Type 2 diabetes mellitus (Chronic) Atrial fibrillation (Chronic) Lupus anticoagulant disorder (Chronic) Pulmonary arterial hypertension (Chronic) Surgical History History of cholecystectomy (Acute) History of tonsillectomy (Acute) history of bunion surgery (Acute) Family History Mother COPD (chronic obstructive pulmonary disease) Cancer melanoma Father Heart disease Alcoholism Grandmother Cancer Social History Smoking Status: Former smoker HPI HPI Chief Complaint: follow-up visit Details: BETI GARCIA, is a 62 F who presents to the office today for a check up with primary pulmonary hypertension ROS Const Constitutional: No weight change, body ache, chills, fatigue, sleep problems, fever(s), change in appetite, snoring, weakness, frequent falls, headache(s) or excessive sweating Eyes Eyes: No change in vision, eye pain, light sensitivity or blurry vision ENT ENT: Positive for ear pain (thinks she may have wax build up.); no headache(s), abnormal hearing, tinnitus, nasal congestion, sore throat or neck pain Resp Respiratory: No snoring, cough, shortness of breath or wheezing Cardio Cardiology: No excessive sweating, chest pain at rest, chest pain with exertion, shortness of breath, dyspnea on exertion, palpitations, orthopnea or lightheadedness Gastro GI: No abdominal pain, change in bowel habits, constipation, diarrhea, vomiting, nausea/dyspepsia or cramping Musc Musculoskeletal: No neck pain, abnormal walking, joint pain, back pain, limited range of motion, numbness or tingling Skin Skin: No redness, dry skin, itching, lesions, wounds or rash Neuro Neurology: No weakness, frequent falls, headache(s), abnormal hearing, abnormal walking, numbness, tingling, abnormal speech, dizziness or memory loss Psych Psychiatric: No change in appetite, No memory loss, No anxiety, Positive for depression, No Thoughts of harming yourself/Others Endo Endocrine: No fatigue, excessive sweating, cold intolerance, increased thirst/drinking, heat intolerance, flushing or increased hunger Aller/Imm Allergy/Immunologic: No wheezing, itchy eyes, hives or seasonal allergy symptoms Arden/Lymp Hematologic/Lymphatic: No easy bleeding, easy bruising or enlarged lymph nodes Exam Const General: cooperative Nutritional Appearance: obese Orientation: alert, oriented x3 Neck Neck mass: Yes Resp Effort AND Inspection: normal respiratory effort Auscultation: Bilateral: Clear to Auscultation (on oxygen) Cardio Rate: regular rate Rhythm: regular rhythm Skin General: no rashes or lesions noted Assessment AND Plan 1. COPD (chronic obstructive pulmonary disease) J44.9 Plan Patient's chronic obstructive pulmonary disease is stable she is not dyspneic at rest still dyspneic with exertion lungs have been clear. 2. Claustrophobia F40.240 3. Anxiety F41.9 4. Depression F32.9 Plan Patient still has some issues with depression but she has no suicidal ideation medications remain unchanged. 5. TIA (transient ischemic attack) G45.9 6. Type 2 diabetes mellitus E11.9 Plan Hemoglobin A1c was ordered she does occasional fasting glucoses at home and says that her sugars have been consistently below 160. Orders Orders: 7. Atrial fibrillation I48.91 Orders Orders: 8. Lupus anticoagulant disorder D68.62 9. Pulmonary arterial hypertension I27.21 Plan Patient is on oxygen all the time of the pulmonary arterial hypertension is a long-standing diagnosis she sees the pulmonary hypertension clinic at [facility] and requested a referral back to the physician has been handling her problems. Orders Referrals: Plan Detail Other Medications New: Follow Up 1 Month Coding Level of Care Code Off vis,est,level 3 Diagnoses COPD (chronic obstructive pulmonary disease) J44.9 Claustrophobia F40.240 Anxiety F41.9 Depression F32.9 TIA (transient ischemic attack) G45.9 Type 2 diabetes mellitus E11.9 Atrial fibrillation I48.91 Lupus anticoagulant disorder D68.62 Pulmonary arterial hypertension I27.21 07/29/17 1615 <Electronically signed by Anika Pedraza DO> Date Anika Pedraza DO Cosigner Signature: Date (if applicable) CC: ALLERGIES ALLERGIES DATE TYPE / CODE NAME / CODE REACTION SEVERITY SOURCE 05/27/2018 Drug nitroglycerin/F Other Unknown [facility] Allergy/416 [id number]([facility] 028743(SNOM M) Repository ED CT) 09/17/2012 DRUG NITRATES OTHER: SEE [facility] INGREDI/419 [facility] 819421(SNOM Repository ED CT) 09/17/2012 DRUG/015667 NITRO OTHER: SEE [facility] 003(SNOMED [address] [place]) Repository 11/06/2003 Chemical/42 ADHESIVE TAPE [facility] [id number](SNO (ROSINS) [facility] MED CT) Repository ENCOUNTERS ENCOUNTERS ADMIT/DISCHARGE ACCOUNT ADMITTING ENCOUNTER LOCATION SOURCE NUMBER CLASS 05/31/2018 [id number] Ambulatory [facility] ing:OPBI Repository 05/28/2018 [id number] Ambulatory [facility] ing:MTLAB Repository 05/27/2018/05/27/19 [id number] Ambulatory BMSBuilding:B [place] [facility] Repository 05/06/2018/05/06/20 [id number] Ambulatory BMSBuilding:B [place] 18 [facility] Repository 05/05/2018/05/05/20 [id number] Ambulatory [place] [facility] ing:MTLAB Repository 04/21/2018 [id number] Ambulatory BMSBuilding:B [place] [facility] Repository 04/06/2018/04/06/20 [id number] Ambulatory BMSBuilding:B [place] 18 [facility] Repository 03/25/2018/03/25/20 [id number] Ambulatory [address] Repository 03/25/2018/03/29/20 [id number] Ambulatory [address] Repository 03/25/2018/03/25/20 [id number] Ambulatory [address] Repository 03/24/2018 [id number] Ambulatory BMSBuilding:B [place] [facility] Repository 03/15/2018/03/15/20 [id number] Ambulatory BMSBuilding:B [place] 18 [facility] Repository 03/15/2018/03/15/20 [id number] Ambulatory BMSBuilding:B [place] 18 [facility] Repository 03/03/2018/03/03/20 [id number] Ambulatory BMSBuilding:B [place] 18 [facility] Repository 02/25/2018/02/26/20 [id number] Ambulatory BMSBuilding:B [place] 18 [facility] Repository 02/24/2018 [id number] Ambulatory BMSBuilding:B [place] [facility] Repository 02/23/2018/02/24/20 [id number] Ambulatory [place] Hospital ing:LAB Repository 02/08/2018 [id number] [facility]MT[facility] Repository 02/04/2018/02/05/20 [id number] Ambulatory BMSBuilding:B [place] [facility] Repository 02/02/2018/02/03/20 [id number] Ambulatory [place] [facility] ing:LAB Repository 01/27/2018 [id number] Ambulatory BMSBuilding:B [place] [facility] Repository 01/06/2018/01/07/20 [id number] Ambulatory [place] [facility]LAB Repository 12/30/2017 [id number] [facility] Repository 12/30/2017/12/31/19 [id number] Ambulatory BMSBuilding:B [place] 18 [facility] Repository 11/25/2017/11/26/19 [id number] Ambulatory BMSBuilding:B [place] 18 [facility] Repository 11/24/2017/11/25/19 [id number] Ambulatory [place] Hospital ing:LAB Repository 11/09/2017 [id number] Ambulatory BMSBuilding:B [place] [facility] Repository 10/13/2017/10/14/19 [id number] Ambulatory BMSBuilding:B [place] 18 [facility] Repository 10/06/2017/10/07/19 [id number] Ambulatory [address] Repository 10/06/2017/10/10/19 [id number] Ambulatory [address] Repository 09/29/2017/09/30/19 [id number] Amb[place] [address] [place] [address] [facility] ing:LAB Repository 09/23/2017/09/25/19 [id number] Ambulatory [address] Repository 09/23/2017/09/29/19 [id number] Ambulatory [address] Repository 09/23/2017/09/24/19 [id number] Ambulatory [address] Repository 09/23/2017 [id number] Ambulatory [facility] Repository 08/26/2017/08/27/19 [id number] Ambulatory BMSBuilding:B [place] 18 [facility] Repository 08/25/2017/08/26/19 [id number] Ambulatory [place] [address] [place] [address] ing:LAB Repository 07/31/2017 [id number] Ambulatory [place] [facility] ing:LAB Repository 07/29/2017/07/30/19 [id number] Ambulatory BMSBuilding:B [place] [facility] Repository PAYERS PAYERS ENCOUNTER GUARANTOR PAYER SUBSCRIBER SOURCE 05/31/2018 BETI A Primary BETI A [place] [id number] Insurance:SCOTTCOLIN SUN: Community [employer] [id number] Number: Repository [id number]: (330 [id number] [phone] (HP) Date:1789-82-77PY [address] [place] [address] 79814WS: 05/31/2018 Secondary NOT GIVENUNK [place] Insurance:SELF PAY [facility] Number: Effective Repository Date:2018-04-08 05/28/2018 BETI A Primary BETI A [place] [id number] Insurance:SCOTTCOLIN SHILOErrol: Community [employer] [id number] Services[facility] Number: Repository [id number]: (330 [id number] [phone] (HP) Date:1767-11-64QL [address] [place] [address] 11947UE: 05/28/2018 Secondary NOT GIVENUNK [place] Insurance:SELF PAY [facility] Number: Effective Repository Date:2018-05-10 05/27/2018 BETI A Primary BETI A [place] [id number] Insurance:MERCEDES SUN: Community [employer] [employer] [id number] Health Rehabilitation Hospital of [facility] CountyAP[facility] Number: Repository [id number]: (330 [id number] [phone] (HP) Date:4639-00-28LV [address] [place] [address] 88874VD: 05/27/2018 Secondary NOT GIVENUNK [place] Insurance:SELF PAY [facility] Number: Effective Repository Date:2018-05-20 05/06/2018 BETI A Primary BETI A [place] [id number] Insurance:MERCEDES SUN: Community [employer] [place] [employer] [id number] ADV[place]APolicy Number: Repository [id number]: 330 [id number] [phone] (HP) Date:7220-92-89UZ [address] [place] [address] 23944JG: 05/06/2018 Secondary NOT GIVENUNK [place] Insurance:SELF PAY [facility] Number: Effective Repository Date:2017-11-05 05/05/2018 BETI A Primary BETI A [place] [id number] Insurance:MERCEDES GARCIAB: Community [employer] [id number], [place] [facility]AP[facility]cl[facility] Number: Repository [id number]: 330 [id number] [phone] () Date:5521-11-36QV [address] [place] [address] 02777UA: 05/05/2018 Secondary NOT GIVENUNK [place] Insurance:SELF PAY [facility] Number: Effective Repository Date:2018-03-11 04/21/2018 BETI A Primary BETI A [place] [id number] Insurance:MERCEDES LAOErrol: Community [employer] [id number], [place] [facility]olcl[facility] Number: Repository [id number]: 330 [id number] [phone] (HP) Date:0814-33-12MX [address] [place] [address] 69610KN: 04/21/2018 Secondary NOT GIVENUNK [place] Insurance:SELF PAY [facility] Number: Effective Repository Date:2017-10-24 04/06/2018 BETI A Primary BETI A [place] [id number] Insurance:MERCEDES GARCIASANG: Community [employer] [employer] [id number], [place] ADVANTAPolicy Number: Repository [id number]: (330 [id number] [phone] (HP) Date:6646-42-39QM [address]XBGKNKL, [place] [address]DM: 04/06/2018 Secondary NOT GIVENUNK [place] Insurance:SELF PAY [facility] Number: Effective Repository Date:2017-11-05 03/24/2018 BETI A Primary BETI A [place] [id number] Insurance:ANTHEM BRITTNEYDOB: Community [employer] [employer] [id number], [place] ADVANTAPolicy Number: Repository [id number]: (330 [id number] [phone] (HP) Date:5234-10-38XZ [address]EBKTDKJ, [place] [address]RR: 03/24/2018 Secondary NOT GIVENUNK [place] Insurance:SELF PAY [facility] Number: Effective Repository Date:2017-10-24 03/15/2018 BETI A Primary BETI A [place] [id number] Insurance:ANTHCOLIN LAOB: Community [employer] [employer] [id number], [place] ADVANTAPolicy Number: Repository [id number]: (330) [id number] [phone]) Date:5897-49-24VD [address]FQZVTWB, [place] [address]FK: 03/15/2018 Secondary NOT GIVENUNK [place] Insurance:SELF PAY [facility] Number: Effective Repository Date:2018-03-15 03/15/2018 BETI A Primary BETI A [place] [id number] Insurance:MERCEDES LAOB: Community [employer] [id number], [place] ADV[place]APolicy Number: Repository [id number]: (330 [id number] [phone] (HP) Date:3067-30-75VA [address]ZUYPYHR, [place] [address]UL: 03/15/2018 Secondary NOT GIVENUNK [place] Insurance:SELF PAY Community [facility] Number: Effective Repository Date:2018-03-15 03/03/2018 BETI A Primary BETI [place] [id number] Insurance:MERCEDES SUN: Community [employer] [id number], [place] ADV[place]APolicy Number: Repository [id number]: 330 [id number] [phone] (HP) Date:4773-06-97RO [address] [place] [address] 26767GF: 03/03/2018 Secondary NOT GIVENUNK [place] Insurance:SELF PAY [facility] Number: Effective Repository Date:2018-03-03 02/25/2018 BETI A Primary BETI A [place] [id number] Insurance:MERCEDES LAOB: Community [employer] [id number], [place] ADV[place]APolicy Number: Repository [id number]: 330 [id number] [phone] (HP) Date:9658-41-90ZK [address] [place] [address] 31475VG: 02/25/2018 Secondary NOT GIVENUNK [place] Insurance:SELF PAY [facility] Number: Effective Repository Date:2017-11-05 02/24/2018 BETI A Primary BETI A [place] [id number] Insurance:MERCEDES SUN: Community [employer] [id number], [place] ADV[place]APolicy Number: Repository [id number]: 330 [id number] [phone] (HP) Date:4457-86-01GF [address] [place] [address] 94270BM: 02/24/2018 Secondary NOT GIVENUNK [place] Insurance:SELF PAY [facility] [place] [facility] Number: Effective Repository Date:2017-10-24 02/23/2018 BETI A Primary BETI A [place] [id number] Insurance:MERCEDES LAOB: Community [employer] [id number], [place] ADV[place]APolicy Number: Repository [id number]: (330 [id number] [phone] (HP) Date:2650-06-72FJ [address]UMTBXDR [place] [address]DT: 02/23/2018 Secondary NOT GIVENUNK [place] Insurance:SELF PAY [facility] Number: Effective Repository Date:2018-02-10 02/08/2018 BETI A Primary BETI A [place] [id number] Insurance:ANTHCOLIN LAOB: Community [employer]IOR [id number], [place] ADV[place]APolicy Number: Repository [id number]: (330) [id number] [phone] (HP) Date:2504-74-71FM [address] [place] [address] [place] 17[address]TK: 02/08/2018 Secondary NOT GIVENUNK [place] Insurance:SELF PAY [facility] Number: Effective Repository Date:2018-02-08 02/04/2018 BETI A Primary BETI A [place] [id number] Insurance:MERCEDES LAOB: Community [employer] [id number], [place] ADV[place]APolicy Number: Repository [id number]: (330) [id number] [phone] (HP) Date:8130-80-94HW [address] [place] [address] [place] 319[address]PN: 02/04/2018 Secondary NOT GIVENUNK [place] Insurance:SELF PAY [facility] [place] [facility] Number: Effective Repository Date:2017-11-05 02/02/2018 BETI A Primary BETI A [place] [id number] Insurance:MERCEDES LAOB: Community [employer] [id number], [place] ADV[place]APolicy Number: Repository [id number]: (330 [id number] [phone] (HP) Date:6668-40-72TG [address]FIGIBEH [place] [address]KU: 02/02/2018 Secondary NOT GIVENUNK [place] Insurance:SELF PAY [facility] [place] [facility] Number: Effective Repository Date:2018-01-12 01/27/2018 BETI A Primary BETI A [place] [id number] Insurance:MERCEDES SUN: Community [employer] [id number], [place] ADV[place]AP[place] Number: Repository [id number]: 330 [id number] [phone] (HP) Date:8276-29-73EW [address] [place] [address] 67021CA: 01/27/2018 Secondary NOT GIVENUNK [place] Insurance:SELF PAY [facility] Number: Effective Repository Date:2017-10-24 01/06/2018 BETI A Primary BETI A [place] [id number] Insurance:MERCEDES LAOB: Community [employer] [id number], [place] ADV[place]APolicy Number: Repository [id number]: (330 [id number] [phone] (HP) Date:9592-01-16FH [address] [place] [address] 88168IB: 01/06/2018 Secondary NOT GIVENUNK [place] Insurance:SELF PAY [facility] Number: Effective Repository Date:2017-12-10 12/30/2017 BETI A Primary BETI A [place] [id number] Insurance:MERCEDES LAOB: Community [employer] [id number], [place]AP[place]icy Number: Repository [id number]: (330 [id number] [phone] (HP) Date:9717-02-38KQ [address] [place] [address] 31567KE: 12/30/2017 Secondary NOT GIVENUNK [place] Insurance:SELF PAY [facility] Number: Effective Repository Date:2017-12-30 12/30/2017 BETI A Primary BETI A [place] [id number] Insurance:MERCEDES LAOB: Community [employer] [id number], [place]AP[place] Number: Repository [id number]: (330 [id number] [phone] (HP) Date:7729-12-73HL [address]GOWPHEC, [place] [address]KE: 12/30/2017 Secondary NOT GIVENUNK [place] Insurance:SELF PAY [facility] Number: Effective Repository Date:2017-12-30 11/25/2017 BETI A Primary BETI A [place] [id number] Insurance:MERCEDES SUN: Community [employer] [id number], [place] ADV[place]APolicy Number: Repository [id number]: 330 [id number] [phone] (HP) Date:6030-96-49UW [address]DLMNABQ, [place] [address]NS: 11/25/2017 Secondary NOT GIVENUNK [place] Insurance:SELF PAY [facility] Number: Effective Repository Date:2017-11-25 11/24/2017 BETI A Primary BETI A [place] [id number] Insurance:MERCEDES SUN: Community [employer] [id number], [place] ADV[place]APolicy Number: Repository [id number]: 330 [id number] [phone] (HP) Date:3567-30-58TZ [address]EGYDORU, [place] [address]BM: 11/24/2017 Secondary NOT GIVENUNK [place] Insurance:SELF PAY [facility] [facility] Number: Effective Repository Date:2017-10-08 11/09/2017 BETI A Primary BETI A [place] [id number] Insurance:MERCEDES BRITTNEYSANG: Community [employer] [id number] Number: Repository [id number]: 330 [id number] [phone] (HP) Date:1163-25-53[address], [place] [address]MQ: 11/09/2017 Secondary NOT GIVENUNK [place] Insurance:SELF PAY [facility] Effective Repository Date:2017-11-09 10/13/2017 BETI A Primary BETI A [place] [id number] Insurance:MERCEDES SUN: Community [employer] [id number] Number: Repository [id number]: ([phone] [id number] [phone] ([phone]) Date:5301-96-14IU [address] [address]BD: 10/13/2017 Secondary NOT GIVENUNK [place] Insurance:SELF PAY [facility] [place] [facility] Number: Effective Repository Date:2017-10-22 09/29/2017 BETI A Primary BETI A [place] [id number] Insurance:MERCEDES SUN: Community [employer] [id number]: Repository [id number]: [phone] [id number] [phone] ([phone]) Date:1100-21-44GP [address] [address]CH: 09/29/2017 Secondary NOT GIVENUNK [place] Insurance:SELF PAY [facility] Number: Effective Repository Date:2017-09-08 08/26/2017 BETI A Primary BETI A [place] [id number] Insurance:MERCEDES SUN: Community [employer] [id number]: Repository [id number]: [phone] [id number] [phone]) Date:5952-06-49CX [address] [place] [address] [place] [address]GX: 08/26/2017 Secondary NOT GIVENUNK [place] Insurance:SELF PAY [facility] Number: Effective Repository Date:2017-08-25 08/25/2017 BETI A Primary BETI A [place] [id number] Insurance:MERCEDES SUN: Community [employer] [place] [id number]: Repository [id number]: [phone]) [id number] [phone] (HP) Date:6156-77-18GC [address] [place], [place] [address], [place] [address]FC: 08/25/2017 Secondary NOT GIVENUNK [place] Insurance:SELF PAY [facility] Number: Effective Repository Date:2017-08-25 07/31/2017 BETI [place] Primary BETI [place] [id number] Insurance:MERCEDES SUN: Community [employer] [id number]AP[place] Number: Repository [id number]: 330 [id number] [phone] Date:7204-92-93DI [id number] [place] [address]HO: 07/31/2017 Secondary NOT GIVENUNK [place] Insurance:SELF PAY [facility] Number: Effective Repository Date:2017-07-31 07/29/2017 BETI Flores Primary BETI [place] [id number] Insurance:MERCEDES SUN: [facility] MEDICARE PPOPolicy [id number] Number: [place]ository [place] [id number]: [id number] Date:4276-65-24VP [address] () [address], [place] [address]BT: 07/29/2017 Secondary NOT GIVENUNK [place] Insurance:SELF PAY [facility] Number: Effective Repository Date:2017-07-29
== END 2018-05-28 17:00 | disposition home or self-care (01) ==
LOC: MTLAB 15:54
PROVIDERS: Family Provider Family Medicine; PCP Family Medicine; Referring Provider Family Medicine; Visit Provider Family Medicine
DX: I48.91 Unspecified atrial fibrillation (principal); D68.62 Lupus anticoagulant syndrome; J44.9 Chronic obstructive pulmonary disease, unspecified; F40.240 Claustrophobia; F41.9 Anxiety disorder, unspecified; F32.9 Major depressive disorder, single episode, unspecified; E11.9 Type 2 diabetes mellitus without complications; I27.21 Secondary pulmonary arterial hypertension; Z86.73 Personal history of transient ischemic attack (TIA), and cerebral infarction without residual deficits
CPT/HCPCS: 36415; 85610

== ENCOUNTER → 2018-05-31 15:20 | Outpatient (CLI) | payer MEDICARE, SELFPAY ==
[2018-04-06 14:32] VITALS: BMI 34.9
[2018-05-27 14:33] VITALS: BMI 34.9
--- NOTE | 2018-05-31 15:24 | BI_ITS ---
MAMMOGRAPHY - BILATERAL SCREENING REASON FOR EXAM: Female, 63 years old. Routine annual screening examination. PERTINENT HISTORY: Non-contributory. TECHNIQUE: Digital bilateral breast gissell (3D mammographic acquisition) in the CC and MLO projections. 2-D mediolateral oblique (MLO) and craniocaudad (CC) views of both breasts were obtained. CAD: Full Field Digital Mammography with Computer Added Detection was performed. COMPARISON: Comparison is made with prior mammogram dated April 20, 2015 and May 14, 2010. FINDINGS: Breast Composition: The breasts are almost entirely fatty. There are no dominant masses or suspicious calcifications. Stable small benign-appearing bilateral axillary lymph nodes. No other significant abnormalities are identified. There has been no significant change since the prior study. BI/SCREENING MAMM (CAD), BILAT IMPRESSION: Stable bilateral screening mammogram. Yearly follow-up mammogram recommended. (A) ASSESSMENT CATEGORY: BIRADS Category 2: Benign. A letter regarding these results will be sent to the patient by the facility within 30 days. Approximately 10% of breast cancers are not detected by mammography. A normal mammogram should not delay biopsy of a clinically suspicious abnormality. [id number] Electronically Signed: Lito Juarez MD at 8:23 EST Tel [phone], Service support ,
--- OUTSIDE RECORDS SUMMARY | 2018-08-03 03:36 | XMS RPT_ITS ---
:1955 Author Organization OHIP Support Name Relationship Address Phone CALL, LARY Unavailable Unavailable + D Unavailable Unavailable Unavailable MARK LAWRENCE Unavailable Unavailable + CALL, LARY Unavailable Unavailable + D Unavailable Unavailable Unavailable MARK LAWRENCE Unavailable Unavailable + CALL, LARY Unavailable [address] + [place] [address] D Unavailable Unavailable Unavailable MARK LAWRENCE Unavailable [address] + [place] [address] CALL, LARY Unavailable [address] + [place] [address] D Unavailable Unavailable Unavailable MARK LAWRENCE Unavailable [address] + [place] [address] CALL, LARY Unavailable [address] + [place] [address] D Unavailable Unavailable Unavailable MARK LAWRENCE Unavailable [address] + [place] [address] CALL, LARY Unavailable [address] + [place] [address] D Unavailable Unavailable Unavailable MARK LAWRENCE Unavailable [address] + [place] [address] CALL, LARY Unavailable [address] + [place] [address] D Unavailable Unavailable Unavailable MARK LAWRENCE Unavailable [address] + [place] [address] CALL, LARY Unavailable [address] + [place] [address] D Unavailable Unavailable Unavailable MARK LAWRENCE Unavailable [address] + [place] [address] CALL, LARY Unavailable [address] + [place] [address] D Unavailable Unavailable Unavailable MARK LAWRENCE Unavailable [address] + [place] [address] CALL, LARY Unavailable [address] + [place] [address] D Unavailable Unavailable Unavailable MARK LAWRENCE Unavailable [address] + [place] [address] CALL, LARY Unavailable [address] + [place] [address] D Unavailable Unavailable Unavailable MARK LAWRENCE Unavailable [address] + [place] [address] CALL, LARY Unavailable [address] + [place] [address] D Unavailable Unavailable Unavailable MARK LAWRENCE Unavailable [address] + [place] [address] CALL, LARY Unavailable [address] + [place] [address] D Unavailable Unavailable Unavailable MARK LAWRENCE Unavailable [address] + [place] [address] CALL, LARY Unavailable [address] + [place] [address] D Unavailable Unavailable Unavailable MARK LAWRENCE Unavailable [address] + [place] [address] CALL LARY Unavailable [address] + [place] [address] D Unavailable Unavailable Unavailable MARK LAWRENCE Unavailable [address] + [place] [address] CALL, LARY Unavailable [address] + [place] [address] D Unavailable Unavailable Unavailable MARK LAWRENCE Unavailable [address] + [place] [address] CALLLARY Unavailable [address] + [place] [address] D Unavailable Unavailable Unavailable MARK LAWRENCE Unavailable [address] + [place] [address] CALL, LARY Unavailable [address] + [place] [address] D Unavailable Unavailable Unavailable MARK LAWRENCE Unavailable [address] + [place] [address] CALL, LARY Unavailable [address] + [place] [address] D Unavailable Unavailable Unavailable MARK LAWRENCE Unavailable [address] + [place] [address] CALL, LARY Unavailable [address] + [place] [address] D Unavailable Unavailable Unavailable MARK LAWRENCE Unavailable [address] + [place] [address] CALL, LARY Unavailable [address] + [place] [address] D Unavailable Unavailable Unavailable MARK LAWRENCE Unavailable [address] + [place] [address] CALL, LARY Unavailable [address] + [place] [address] D Unavailable Unavailable Unavailable MARK LAWRENCE Unavailable [address] + [place] [address] CALL, LARY Unavailable [address] + [place] [address] D Unavailable Unavailable Unavailable MARK LAWRENCE Unavailable [address] + [place] [address] CALL, LARY Unavailable [address] + [place] [address] D Unavailable Unavailable Unavailable MARK LAWRENCE Unavailable [address] + [place] [address] CALL, LARY Unavailable [address] + [place] [address] D Unavailable Unavailable Unavailable MARK LAWRENCE Unavailable [address] + [place] [address] CALL, LARY Unavailable [address] + [place] [address] D Unavailable Unavailable Unavailable MARK LAWRENCE Unavailable [address] + [place] [address] CALLLARY Unavailable [address] + [place] [address] D Unavailable Unavailable Unavailable MARK LAWRENCE Unavailable [address] + [place] [address] CALLLARY Unavailable [address] + [place] [address] D Unavailable Unavailable Unavailable MARK LAWRENCE Unavailable [address] + [place] [address] CALL, LARY Unavailable [address] + [place] [address] D Unavailable Unavailable Unavailable MARK LAWRENCE Unavailable [address] + [place] [address] CALL, LARY Unavailable [address] + [place] [address] D Unavailable Unavailable Unavailable MARK LAWRENCE Unavailable [address] + [place] [address] Care Team Providers Name Role Phone JAYANNACY (SHINGLE CARRIER) Referring Unavailable HERESI MARIE, NEERAJ A Referring Unavailable JAY, CADEN (SHINGLE CARRIER) Referring Unavailable HERESI MARIE, NEERAJ A Referring Unavailable JAY, CADEN (SHINGLE CARRIER) Referring Unavailable JAY, CADEN (SHINGLE CARRIER) Attending Unavailable JAY, CADEN (SHINGLE CARRIER) Referring Unavailable JAY, CADEN (SHINGLE CARRIER) Referring Unavailable HERESI MARIE, NEERAJ A Referring Unavailable HERESI MARIE, NEERAJ A Attending Unavailable Brown, Anika Attending Unavailable Brown, Anika Referring Unavailable Brown, Aniak Attending Unavailable Brown, Anika Referring Unavailable Brown, [...] Anika Attending Unavailable Brown, Anika Referring Unavailable Darya Marquez Attending Unavailable Brown, Anika Referring Unavailable Parrish Calix RIFFLER TENDER-C Attending Unavailable Brown, Anika Referring Unavailable Brown, [...] Referring Unavailable Brown, Anika Primary Care Unavailable Zack Marquezbe Attending Unavailable Brown, Anika Referring Unavailable Brown, Anika Attending Unavailable Brown, Anika Referring Unavailable Brown, Anika Primary Care Unavailable Brown, Anika Attending Unavailable Brown, Anika Referring Unavailable Brown, Anika Primary Care Unavailable PROBLEMS PROBLEMS DATE TYPE CONDITION / CODE ATTENDING STATUS SOURCE 05/06/2018 Unknown E11.9 - Type 2 Anika Pedraza Active [place] diabetes mellitus Community without Hospital complications / Repository E11.9(ICD-10) 05/10/2018 Unknown D68.62 - Lupus Anika Pedraza Active [facility] anticoagulant Community syndrome / Hospital D68.62(ICD-10) Repository 04/06/2018 Unknown Z12.31 - Encounter Anika Pedraza Active [facility] for screening Community mammogram for Hospital malignant neoplasm Repository of breast / Z12.31(ICD-10) 03/25/2018 Active Other mcfp NA Active [facility] (current) drug Clinic Main therapy / [place] Z79.899(ICD-10) Repository 03/11/2018 Unknown I48.91 - Unspecified Anika Pedraza Active [place] atrial fibrillation Community / I48.91(ICD-10) Hospital Repository 03/11/2018 Unknown 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 Community 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0 - Primary Anika Pedraza Active [facility] pulmonary Community hypertension / Hospital I27.0(ICD-10) Repository 11/25/2017 Unknown L73.9 - Follicular Anika Pedraza Active [facility] disorder, Community unspecified / Hospital L73.9(ICD-10) Repository 10/06/2017 Active Chronic NA Active [facility] Main pulmonary [place] hypertension / Repository I27.24(ICD-10) 09/23/2017 Active Shortness of breath NA Active [facility] / R06.02(ICD-10) Clinic Main [place] Repository 09/23/2017 Active Pulmonary heart NA Active [facility] disease, unspecified Clinic Main / I27.9(ICD-10) [place] Repository 07/29/2017 Unknown I27.21 - Secondary Anika Pedraza Active [facility] pulmonary arterial Community hypertension / Hospital I27.21(ICD-10) Repository 07/29/2017 Unknown J44.9 - Chronic Anika Pedraza Active [facility] obstructive Community pulmonary disease, Hospital unspecified / Repository J44.9(ICD-10) 07/29/2017 Unknown F40.240 - Anika Pedraza Active [facility] Claustrophobia / Community F40.240(ICD-10) Hospital Repository 07/29/2017 Unknown F32.9 - Major Anika Pedraza Active [facility] depressive disorder, Community single episode, Hospital unspecified / Repository F32.9(ICD-10) PROCEDURES PROCEDURES No Procedure Records FoundRESULTS RESULTS SCREENING MAMM (CAD), Observed: 05/31/2018 Status: F Source: [place] REZA 3:[address] [facility] REPOSITORY [facility] Imaging Services [address] [place] [address] SCREENING MAMM (CAD), BILAT MR#: [id number] Acct: [id number] Name: BETI GARCIA Rep #: [id number] : 1955 F 63 From: Lito Juarez MD PCP: Anika Pedraza DO Status: REG CLI Study: SCREENING MAMM (CAD), BILAT Date of Exam: 05/31/18 Exam# [id number] Ordering Dr: Anika Pedraza DO MAMMOGRAPHY - [...] delay biopsy of a clinically suspicious abnormality. [id number] Electronically Signed: Lito Juarez MD at 8:23 EST Tel [phone], Service support , CC: Anika Pedraza DO Senior Java Developer: Signed PROTHROMBIN TIME W/INR Collected: 05/28/2018 Status: F Source: [place] 4:[address] [facility] REPOSITORY TYPE CODE TESTS RESULT OUT OF RANGE REFERENCE UNITS LAB L300.4150 11.7-14.9 SECONDS High PROTIME 26.7 LAB L300.4200 Normal INR 2.5 Performed By: #### L300.3900 #### [facility] [address] [place], [address] INTERNAL MEDICINE Observed: 05/27/2018 Status: F Source: [place] OFFICE VISIT 3:[address] [facility] REPOSITORY [facility] [address] [place] [address] [place] [address] OFFICE VISIT Date of Service: 05/27/18 MR#: [id number] Acct: [id number] Name: BETI GARCIA Rep #: [id number] : 1955 Provider: Anika Pedraza DO Age/Sex: 63/F Location: [facility] Status: Signed Intake Vital Signs05/27/18 Body Mass [...] DAILY #90 tab 05/27/18 [Rx Confirmed 05/27/18] [facility] Medical History Primary pulmonary hypertension (PPH) (Chronic) [...] Plan Problems 1. Chronic sinusitis J32.9 2. shelter (current) use of 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 Z79.01 3. 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 COPD (chronic obstructive pulmonary disease) J44.9 Claustrophobia F40.240 Anxiety F41.9 Type 2 diabetes mellitus E11.9 Pulmonary arterial hypertension I27.21 05/27/18 1509 <Electronically signed by Anika Pedraza DO> Date Anika Pedraza DO Cosigner Signature: Date (if applicable) CC: PROGRESS Observed: 05/13/2018 Status: COMPLETED Source: [place] 10:41 AM [facility] [place] REPOSITORY HNO ID: [id number] Author: Bucky House Service: (none) Author Type: (none) Type: Progress Notes Filed: 05/13/2018 10:42 AM Note Text: INTERNAL MEDICINE Observed: 05/06/2018 Status: F Source: [place] OFFICE VISIT 3:[address] [facility] REPOSITORY [facility] [address] [place] [address] OFFICE VISIT Date of Service: 05/06/18 MR#: [id number] Acct: [id number] Name: BETI GARCIA Sandra Rep #: [id number] : 1955 Provider: Anika Pedraza DO Age/Sex: 63/F Location: [facility] Status: Signed Intake Vital Signs05/06/18 Body Mass [...] Anika Pedraza DO> Date [facility]: Date (if applicable) CC: PROTHROMBIN TIME W/INR Collected: 05/05/2018 Status: F Source: [place] 1:[address] [facility] REPOSITORY TYPE CODE TESTS RESULT OUT OF RANGE REFERENCE UNITS LAB L300.4150 11.7-14.9 SECONDS High PROTIME 28.6 LAB L300.4200 Normal INR 2.7 Performed By: #### L300.3900 #### [facility] [address] [place], [address] INTERNAL MEDICINE Observed: 04/06/2018 Status: F Source: [place] OFFICE VISIT 3:[address] [facility] REPOSITORY [facility] [address] [place] [address] [place] [address] OFFICE VISIT Date of Service: 04/06/18 MR#: [id number] Acct: [id number] Name: BETI GARCIA Sandra Rep #: [id number] : 1955 Provider: Anika Pedraza DO Age/Sex: 63/F Location: [facility] Status: Signed Intake Vital Signs04/06/18 Height 5 ft 4 in Intake Visit Reasons: 1 MO FU Chief Complaint: Right ear pressure Design Agent Required: No Is patient in pain?: No [...] Pt presents for a 1 mo f/u [facility] Medical History Primary pulmonary hypertension (PPH) (Chronic) [...] Plan Problems 1. Chronic sinusitis J32.9 2. shelter (current) use of 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 Z79.01 3. Primary [...] the primary pulmonary hypertension clinic up at [facility]. She is still trying to qualify for the liquid oxygen she was receiving from [facility]. And she has seen an ENT doctor [...] Off vis,est,level 3 Diagnoses Chronic sinusitis J32.9 shelter (current) use of 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 Z79.01 Primary pulmonary hypertension (PPH) I27.0 Anxiety F41.9 Depression F32.9 Type 2 diabetes mellitus E11.9 04/06/18 1539 <Electronically signed by Anika Pedraza DO> Date Anika Pedraza DO Cosigner Signature: Date (if applicable) CC: PROTHROMBIN TIME W/INR Collected: 04/05/2018 Status: F Source: [place] 1:[address] [facility] REPOSITORY TYPE CODE TESTS RESULT OUT OF RANGE REFERENCE UNITS LAB L300.4150 11.7-14.9 SECONDS High PROTIME 29.8 LAB L300.4200 Normal INR 2.8 Performed By: #### L300.3900 #### [facility] [address] [place], [address] PROGRESS Observed: 03/30/2018 Status: COMPLETED Source: [place] 2:43 PM [facility] [place] REPOSITORY HNO ID: [id number] Author: Bucky House Service: (none) Author Type: (none) Type: Progress Notes Filed: 03/30/2018 2:45 PM Note Text: Patient returned my call. I provided her the number to [employer]. She will keep me abreast. Bucky House Admin Cell Stripper Final Pulmonary Hypertension AND HHT PROGRESS Observed: 03/30/2018 Status: COMPLETED Source: [place] 1:47 PM [facility] [place] REPOSITORY HNO ID: [id number] Author: Bucky House Service: (none) Author Type: (none) Type: Progress Notes Filed: 03/30/2018 1:48 PM Note Text: Received message that patient had questions regarding [employer] and patient assistance. Called patient, no answer, left voicemail. Bucky House Admin Cell Stripper Final Pulmonary Hypertension AND HHT CNCO Observed: 03/29/2018 Status: COMPLETED Source: [place] 12:00 AM [facility] REPOSITORY Letter Text March 25, 2018 Anika Pedraza, DO [address] [phone] NAME: Beit Garcia [facility] NO: [id number] DATE OF SERVICE: 03/25/[address] Pedraza, Dr. Neeraj Ochoa and the Advanced Lung Disease Team had the pleasure of seeing your patient Beti Garcia for follow up in the Pulmonary Department of [facility] on March 25, 2018, for further evaluation [...] AND DIFFERENTIAL Collected: 03/25/2018 Status: F Source: [place] 2:07 PM [facility] REPOSITORY TYPE CODE TESTS RESULT OUT OF [...] k/uL Abs Lymph 1.24 LAB AMONO % Hitchcock% 8.6 LAB AAMONO <0.87 k/uL Abs Hitchcock 0.71 LAB AEOS % Eosin% 3.4 LAB AAEOS <0.46 k/uL Abs Eosin 0.28 LAB ABASO % Baso% 0.4 LAB AABASO <0.11 k/uL Abs Baso 0.03 LAB AUNRBC 0 /100 WBC NRBCs 0.0 LAB ABNRBC <0.01 k/uL Absolute nRBC <0.01 LAB DTYP DTYPE Auto Diff Performed By: #### CBCDIF, CMP, NTBNP #### [facility] [address] [place], [place] [address] COMP METABOLIC PANEL Collected: 03/25/2018 Status: F Source: [place] 2:07 PM [facility] REPOSITORY TYPE CODE TESTS RESULT OUT OF REFERENCE UNITS RANGE LAB TP 6.3-8.0 g/dL Low Protein, Total 6.2 LAB ALB 3.9-4.9 g/dL Albumin 4.3 LAB CA 8.5-10.2 mg/dL Calcium, Total 10.1 LAB TBIL 0.2-1.3 mg/dL Bilirubin, Total 0.5 LAB ALKP 34-123 U/L Alkaline Phosphatase 95 LAB AST 13-35 U/L AST 21 LAB GLU 74-99 mg/dL Glucose High 208 Result Comment: The [place] Diabetes Association (ADA) provides guidance for cutoff [...] Standards of Medical Care in Diabetes 2016, [place] Diabetes Association. Diabetes Care. 2016.39(Suppl 1). LAB [...] Performed By: #### CBCDIF, CMP, NTBNP #### [facility] [employer] [address] [place], [place] [address] NT PRO BNP Collected: 03/25/2018 Status: F Source: [place] 2:07 PM [facility] REPOSITORY TYPE CODE TESTS RESULT OUT OF REFERENCE UNITS RANGE LAB PBNP <125 pg/mL PRO B Natr 102 Peptide Performed By: #### CBCDIF, CMP, NTBNP #### [facility] [employer] [address] [place], [place] [id number] PROGRESS Observed: 03/25/2018 Status: COMPLETED Source: [place] 12:26 PM [facility] REPOSITORY HNO ID: [id number] Author: Caden (Pest Management Supervisor) Jay Service: (none) Author Type: Nurse Specialist [...] 24 hours per day. [facility] LABWORK: Basic Metabolic Panel. Please fax results to [phone]. DX: V58.69 COMPOUNDED PRESCRIPTION LABWORK: Basic Metabolic Panel. Please fax results to [phone]. DX: V58.69 No current facility-administered medications for [...] As of Apr 24 her pollo for [employer] through [facility] is ending. She is concerned that she cannot get another pollo. She feels she would be unable to continue the [employer]HelpAround if this is the case. TESTING: WALK [...] at 2 LPM, etc. PFT: ADALID/LUNG VOL/DLCO ([id number]) - ordered on 05/09/14 Pred LLN Pre- % Post- % % [facility] Date [id number] Time 01:14PM 02:01PM Height 163 163 Weight [...] seal during equilibration. DLCO not hemoglobin corrected. //MA Impression: 1. Baseline spirometry indicates moderately severe [...] Reviewer: Alan Land M.D. PFT: ADALID/LUNG VOL/DLCO ([id number]) - ordered on 5/10/13 Pred LLN Pre- [...] Abs Lymph 1.00 - 4.00 k/uL 1.24 Hitchcock% % 8.6 Abs Hitchcock <0.87 k/uL 0.71 Eosin% % 3.4 Abs [...] examined the patient. Caden Willett, RN MSN RAILCAR CARPENTER.SHINGLE CARRIER PHYSICAL EXAM: GENERAL: alert and active in [...] with weight gain. Fax Oxygen script to [facility] [phone] for Continue current PH therapy. Follow up in 1-2 months with the following tests: Echo without contrast,, 6 Min Walk Test, and Labs, Caden Willett RN MSN RAILCAR CARPENTER.[facility] Supervising Physician:Dr. Abigail WRIGHT Observed: 03/25/2018 Status: COMPLETED Source: [place] 11:25 AM [facility] REPOSITORY Office Visit (PULMMN) BETI GARCIA ([id number]) 1955 F Date Time Provider Department 03/25/18 11:25 AM CADEN WILLETT ([facility]) PULMMN During your visit today, we recorded the following information about you: Temperature Pulse Respiration Blood pressure 99.3 degrees 95/minute 14/minute 139/55 Weight Height 90.7 kg 1.6 m Caden Willett RN MSN RAILCAR CARPENTER.[facility] 03/26/2018 5:15 PM Signed Beti Garcia is [...] 24 hours per day. [facility] LABWORK: Basic Metabolic Panel. Please fax results to [phone]. DX: V58.69 COMPOUNDED PRESCRIPTION LABWORK: Basic Metabolic Panel. Please fax results to [phone]. DX: V58.69 No current facility-administered medications for [...] As of Apr 24 her pollo for [employer] through [employer] is ending. She is concerned that she [...] at 2 LPM, etc. PFT: ADALID/LUNG VOL/DLCO ([id number]) - ordered on 05/09/14 Pred LLN Pre- % Post- % % [facility] Date [id number] Time 01:14PM 02:01PM Height 163 163 Weight [...] seal during equilibration. DLCO not hemoglobin corrected. //MA Impression: 1. Baseline spirometry indicates moderately severe [...] Reviewer: Alan Land M.D. PFT: ADALID/LUNG VOL/DLCO ([id number]) - ordered on 09/17/12 [facility] Pre- % Date 195533 Time 10:48AM Height 163 Weight 126 FVC [...] Abs Lymph 1.00 - 4.00 k/uL 1.24 Hitchcock% % 8.6 Abs Hitchcock <0.87 k/uL 0.71 Eosin% % 3.4 Abs [...] examined the patient. Caden Willett, RN MSN RAILCAR CARPENTER.SHINGLE CARRIER PHYSICAL EXAM: GENERAL: alert and active in [...] with weight gain. Fax Oxygen script to [facility] [phone] for Continue current PH therapy. Follow up in 1-2 months with the following tests: Echo without contrast,, 6 Min Walk Test, and Labs, Caden Willett, RN MSN RAILCAR CARPENTER.SHINGLE CARRIER Supervising Physician:Dr. Ochoa Referring Provider: CADEN WILLETT ([facility]) [[id number]] Allergies As of Date: 03/25/2018 Noted Allergy [...] [Z79.899] Order(s):COMP METABOLIC PANEL [SQCMP] Order #: [id number] FUTURE NT PRO BNP [SQNTBNP] Order #: [id number] FUTURE CBC + DIFF [SQCBCDIF] Order #: [id number] FUTURE CBC + DIFF [SQCBCDIF] Order #: [id number] FUTURE COMP METABOLIC PANEL [SQCMP] Order #: [id number] FUTURE NT PRO BNP [SQNTBNP] Order #: [id number] FUTURE Prescriptions as of 03/25/2018 Sig: AMBRISENTAN [...] 03/26/18 PROGRESS Observed: 03/18/2018 Status: COMPLETED Source: [place] 2:36 PM [facility] REPOSITORY O ID: [id number] Author: Bucky House Service: (none) Author Type: (none) Type: Progress Notes Filed: 03/18/2018 2:36 PM Note Text: Completed physician portion of [employer] patient assistance forms and mailed to patient to complete and mail to [employer] for patient assistance on [employer] for 2019. Patient is aware forms are on the way. Bucky House Admin Cell Stripper Final Pulmonary Hypertension AND T INTERNAL MEDICINE Observed: 03/16/2018 Status: F Source: [place] OFFICE VISIT 4:53 PM [facility] [address] [place] [address] [place] [address] OFFICE VISIT Date of Service: 03/15/18 MR#: [id number] Acct: [id number] Name: KRZYSZTOFJOAQUINABETI Sandra Rep #: [id number] : 1955 Provider: Darya Marquez MD Age/Sex: 63/F Location: [facility] Status: Signed Intake Intake Visit Reasons: EAR [...] acute distress Orientation: alert, awake, oriented x3 HENAR Head: atraumatic, normocephalic Ears: TM's normal bilaterally, [...] as above. This note was generated with [employer] dictation software. It may contain incorrect words, [...] F Source: [place] OFFICE VISIT 5:02 PM [facility] [address] [place] [address] OFFICE VISIT Date of Service: 03/03/18 MR#: [id number] Acct: [id number] Name: BETI GARCIA Rep #: [id number] : 1955 Provider: Parrish Calix NP Age/Sex: 63/F Location: [facility] Status: Signed Intake Vital Signs03/03/18 Blood Pressure [...] disease Social History Smoking Status: Former smoker [facility] Chief Complaint: Ear pressure AND Sinus problems [...] utilizing Flonase instead. She denies any other aipx-tgx-bvpjuxa treatments, but does state that she has [...] 02/26/2018 Status: COMPLETED Source: [place] 12:00 AM [facility] REPOSITORY Telephone (CHRISTINA) BETI GARCIA ([id number]) 1955 F Date Time Provider Department 02/26/18 [...] F Source: [place] OFFICE VISIT 3:48 PM [facility] [address] [address] [place] [address] OFFICE VISIT Date of Service: 02/25/18 MR#: [id number] Acct: [id number] Name: BETI GARCIA Rep #: [id number] : 1955 Provider: Anika Pedraza DO Age/Sex: 63/F Location: [facility] Status: Signed Intake Vital Signs02/25/18 Height 5 [...] Problems 1. 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 REPOSITORY Urine Culture ORGANISM 1: Presumptive E. coli [place] Count 11,000-25,000 Presumptive E. coli: REACTION Amoxacillin/Clavulanic [...] <=20 S (NF) indicates non-formulary drug at [facility]. Approval by Infectious Disease Specialist required before non-formulary drugs may be ordered and/or dispensed. Performed By: #### M100.0650 #### [facility] [address] [place], [address] INTERNAL MEDICINE Observed: 02/05/2018 Status: F Source: [place] OFFICE VISIT 9:[address] [facility] REPOSITORY [facility] [address] [place] [address] [place] [address] OFFICE VISIT Date of Service: 02/04/18 MR#: [id number] Acct: [id number] Name: BETI GARCIA Rep #: [id number] : 1955 Provider: Anika Pedraza DO Age/Sex: 63/F Location: [facility] Status: Signed with Addenda ADDENDUM by Hollie Manuel on 02/05/18 at 0952 OFFICE PROCEDURES Office Procedure Documentation entered by Hollie Manuel 02/05/18 09:52: Office Meds Fluad 65yr up(PF)45 mcg(15 mcgx3)/0.5 mL intramuscular syringe Performing Provider: Anika Pedraza DO Administered by: Hollie Manuel on 02/05/18 09:51 Dose Route Admin Location Lot Number Expiration Date NDC Podiatry Professor 0.5 mL IM Rt Deltoid [id number] 11/07/18 23154-912-80 SEQIRUS 02/05/18 0952 <Electronically signed by Hollie [...] QTUTHSASU #30 tab 01/08/18 [Rx Confirmed 01/12/18] [facility] Medical History Primary pulmonary hypertension (PPH) (Chronic) [...] COPD (chronic obstructive pulmonary disease) J44.9 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 Anxiety [...] examinations. I did discuss possible referral to uro-electric solderer should the culture be negative. 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 REPOSITORY TYPE CODE TESTS RESULT OUT OF RANGE REFERENCE UNITS LAB L300.4150 11.7-14.9 SECONDS High PROTIME 27.3 LAB L300.4200 Normal INR 2.5 Performed By: #### L300.3900 #### [facility] [address] [place], [address] INTERNAL MEDICINE Observed: 12/31/2017 Status: F Source: [place] OFFICE VISIT 8:[address] [facility] REPOSITORY [facility] [address] [place] [address] OFFICE VISIT Date of Service: 12/30/17 MR#: [id number] Acct: [id number] Name: BETI GARCIA Rep #: [id number] : 1955 Provider: Anika Pedraza DO Age/Sex: 62/F Location: [facility] Status: Signed Intake Vital Signs12/30/17 Height 5 [...] mg PO QTUTHSASU 12/30/17 [History Confirmed 12/30/17] [facility] Medical History Primary pulmonary hypertension (PPH) (Chronic) [...] hypertension (PPH) I27.0 Plan The reports from [facility] was reviewed and she is thinking about [...] AFFECT DIPSTICK RESULTS. How was Urine Obtained? MECHANICAL TECH TO SPECIFY TYPE CODE TESTS RESULT OUT [...] 0 SEEN Performed By: #### L400.0001 #### [facility] [address] [place], [place], [address] PROTHROMBIN TIME W/INR Collected: 12/29/2017 Status: F Source: [place] 4:[address] [facility] REPOSITORY TYPE CODE TESTS RESULT OUT OF REFERENCE UNITS RANGE LAB L300.4150 11.7-14.9 SECONDS High PROTIME 36.9 LAB L300.4200 High alert INR 3.7 Result Comment: CRITICAL VALUE VERIFIED. CALLED TO SHAYAL 12/29/17 Lul Peralta. RESULTS READ BACK BY SAME . Performed By: #### L300.3900 #### [facility] [address] [place], [address] INTERNAL MEDICINE Observed: 11/25/2017 Status: F Source: [place] OFFICE VISIT 3:[address] [facility] REPOSITORY [facility] [address] [place] [address] [place] [address] OFFICE VISIT Date of Service: 11/25/17 MR#: [id number] Acct: [id number] Name: BETI GARCIA Rep #: [id number] : 1955 Provider: Anika Pedraza DO Age/Sex: 62/F Location: [facility] Status: Signed Intake Vital Signs11/25/17 Height 5 [...] BID #30 g 11/25/17 [Rx Confirmed 11/25/17] [facility] Medical History COPD (chronic obstructive pulmonary disease) [...] being managed by a clinic up in [place] she has no change in her status [...] E11.9 Atrial fibrillation I48.91 Folliculitis L73.9 11/25/17 8985 <Electronically signed by Anika Pedraza DO> Date Anika Pedraza DO Cosigner Signature: Date (if applicable) CC: PROTHROMBIN TIME W/INR Collected: 11/24/2017 Status: F Source: [place] 2:[address] [facility] REPOSITORY TYPE CODE TESTS RESULT OUT OF RANGE REFERENCE UNITS LAB L300.4150 11.7-14.9 SECONDS High PROTIME 31.2 LAB L300.4200 Normal INR 3.0 Performed By: #### L300.3900 #### [facility] [address] [place], [address] HEMOGLOBIN A1C Collected: 11/24/2017 Status: F Source: [place] 2:[address] [facility] REPOSITORY TYPE CODE TESTS RESULT OUT OF RANGE REFERENCE UNITS LAB L501.9985 4.2-6.3 % High HGB A1C 6.9 Performed By: #### L501.9985 #### [facility] [address] [place], [address] CT CHEST W IVCON PE Observed: 10/06/2017 Status: F Source: [place] 10:50 AM [facility] REPOSITORY * * *Final Report* * * DATE OF EXAM: Oct 06 2017 10:50AM [facility] 0540 - CT CHEST W IVCON PE [...] Lung findings consistent with chronic thromboembolic disease. Senior Java Developer: PSCB Transcribe Date/Time: Oct 06 2017 11:42A Dictated by : NORRIS CALDERÓN MD This examination was interpreted and the report reviewed and electronically signed by: NORRIS CALDERÓN MD on Oct 06 2017 12:09PM EST [id number] PROGRESS Observed: 10/06/2017 Status: COMPLETED Source: [place] 10:42 AM [facility] REPOSITORY HNO ID: [id number] Author: Ed Solomon Service: (none) Author Type: [...] AM PROGRESS Observed: 10/06/2017 Status: COMPLETED Source: [place] 10:17 AM [facility] REPOSITORY HNO ID: [id number] Author: Aditi CherryRn) KAREN Bear Service: Radiology [...] F Source: [place] PERF VQ 10:00 AM [facility] REPOSITORY * * *Final Report* * * [...] seen. IMPRESSION: Low probability of pulmonary embolism. Senior Java Developer: PSCErrol Transcribe Date/Time: Oct 06 2017 10:43A Dictated by : BRIDGET FAN MD This examination was interpreted and the report reviewed and electronically signed by: BRIDGET FAN MD on Oct 06 2017 10:58AM EST [id number] PROGRESS Observed: 10/06/2017 Status: COMPLETED Source: [place] 9:37 AM 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 A Diagnostic radioactive procedure has taken place, with no further precautions necessary other than routine body substance precautions. More information regarding radiation safety can be found using this link: [email or web address] SIGNATURE: Arcadio Masters RT PATIENT NAME: Beti Garcia DATE: October 06, 2017 TIME: 9:37 AM PAGER/CONTACT #: PROGRESS Observed: 10/02/2017 Status: COMPLETED Source: [place] 10:38 AM [facility] REPOSITORY HNO ID: [id number] Author: Bucky House Service: (none) Author Type: (none) Type: Progress Notes Filed: 10/02/2017 10:39 AM Note Text: CNCO Observed: 10/01/2017 Status: COMPLETED Source: [place] 12:00 AM [facility] REPOSITORY Letter Text October 01, 2017 Anika Pedraza, DO [address] [place] [address] Lona Alcantara, [facility] [address] [facility] [address] [place] [address] NAME: Beti Garcia [facility] NO: [id number] : 1955 DATE OF SERVICE: 09/23/2017 Dear Doctors: It was a pleasure to see your patient Beti Garcia in the Pulmonary Department at the [facility]. Please see the attached summary and the test results for details. We appreciate having the opportunity to see your patient. If we can be of further assistance to you or if you have any questions regarding this report, please feel free to contact me. Sincerely, Neeraj Ochoa MD Staff Physician Respiratory [place] [facility]/francisca Enclosure: Visit Summary PROTHROMBIN TIME W/INR Collected: 09/29/2017 Status: F Source: [place] 1:[address] [facility] REPOSITORY Order Comment: Comments: Test to be done montly Comments: Test to be done montly TYPE CODE TESTS RESULT OUT OF RANGE REFERENCE UNITS LAB L300.4150 11.7-14.9 SECONDS High PROTIME 28.2 LAB L300.4200 Normal INR 2.6 Performed By: #### L300.3900 #### [facility] [address] [place], [place], [address] PROGRESS Observed: 09/23/2017 Status: COMPLETED Source: [place] 3:49 PM [facility] REPOSITORY HNO ID: [id number] Author: Neeraj Ochoa Service: (none) Author Type: [...] Take 1 tablet by mouth once daily. [facility] LABWORK: Basic Metabolic Panel. Please fax results to [phone]. DX: V58.69 furosemide (LASIX) 40 mg tablet [...] Basic Metabolic Panel. Please fax results to [phone]. DX: V58.69 warfarin (COUMADIN) 3 mg tablet [...] Abs Lymph 1.00 - 4.00 k/uL 1.20 Hitchcock% % 6.9 Abs [place] <0.87 k/uL 0.56 Eosin% % 3.3 Abs [...] MD CNOV Observed: 09/23/2017 Status: COMPLETED Source: [place] 12:55 PM [facility] REPOSITORY Office Visit (PULMMN) BETI GARCIA ([id number]) 1955 F Date Time Provider Department 09/23/17 [...] Take 1 tablet by mouth once daily. [facility] LABWORK: Basic Metabolic Panel. Please fax results to [phone]. DX: V58.69 furosemide (LASIX) 40 mg tablet [...] Basic Metabolic Panel. Please fax results to [phone]. DX: V58.69 warfarin (COUMADIN) 3 mg tablet [...] Abs Lymph 1.00 - 4.00 k/uL 1.20 Hitchcock% % 6.9 Abs [place] <0.87 k/uL 0.56 Eosin% % 3.3 Abs [...] hypertension) [I27.24] Order(s):CT CHEST W IVCON PE [[id number]] Order #: [id number] FUTURE iv contrast (will be provided with [...] 0 NM LUNG VENT / PERF VQ [[id number]] Order #: [id number] FUTURE Prescriptions as of 09/23/2017 Sig: IV [...] 09/23/17 PROCEDURE Observed: 09/23/2017 Status: COMPLETED Source: [place] 12:35 PM [facility] REPOSITORY HNO ID: [id number] Author: Cristiane Peralta, REECE Service: (none) Author [...] METABOLIC PANEL Collected: 09/23/2017 Status: F Source: [place] 10:00 AM [facility] REPOSITORY TYPE CODE TESTS RESULT OUT OF REFERENCE UNITS RANGE LAB TP 6.3-8.0 g/dL Protein, Total 6.5 LAB ALB 3.9-4.9 g/dL Albumin 4.0 LAB CA 8.5-10.2 mg/dL Calcium, Total 9.9 LAB TBIL 0.2-1.3 mg/dL Bilirubin, Total 0.3 LAB ALKP 32-117 U/L Alkaline Phosphatase 92 LAB AST 13-35 U/L AST 18 LAB GLU 74-99 mg/dL Glucose High 186 Result Comment: The [place] Diabetes Association (ADA) provides guidance for cutoff [...] Standards of Medical Care in Diabetes 2016, [place] Diabetes Association. Diabetes Care. 2016.39(Suppl 1). LAB [...] Performed By: #### CMP, NTBNP, CBCDIF #### [facility] [employer] [address] [place], [place] [address] NT PRO BNP Collected: 09/23/2017 Status: F Source: [place] 10:00 AM [facility] REPOSITORY TYPE CODE TESTS RESULT OUT OF REFERENCE UNITS RANGE LAB PBNP <125 pg/mL PRO B Natr 54 Peptide Performed By: #### CMP, NTBNP, CBCDIF #### [facility] [employer] [address] [place], [place] [address] CBC AND DIFFERENTIAL Collected: 09/23/2017 Status: F Source: [place] 10:00 AM [facility] REPOSITORY TYPE CODE TESTS RESULT OUT OF [...] k/uL Abs Lymph 1.20 LAB AMONO % Hitchcock% 6.9 LAB AAMONO <0.87 k/uL Abs [place] 0.56 LAB AEOS % Eosin% 3.3 LAB AAEOS <0.46 k/uL Abs Eosin 0.27 LAB ABASO % Baso% 0.5 LAB AABASO <0.11 k/uL Abs Baso 0.04 LAB AUNRBC 0 /100 WBC NRBCs 0.0 LAB ABNRBC <0.01 k/uL Absolute nRBC <0.01 LAB DTYP DTYPE Auto Diff Performed By: #### CMP, NTBNP, CBCDIF #### [facility] [address] [place], [place] [address] INTERNAL MEDICINE Observed: 09/10/2017 Status: F Source: [place] OFFICE VISIT 2:44 PM [facility] [address] [place] [address] [place] [address] OFFICE VISIT Date of Service: 08/26/17 MR#: [id number] Acct: [id number] Name: BETI GARCIA Rep #: [id number] : 1955 Provider: Anika Pedraza DO Age/Sex: 62/F Location: [facility] Status: Signed Intake Vital Signs08/26/17 Height 5 [...] TIME W/INR Collected: 08/25/2017 Status: F Source: [place] 3:[address] [facility] REPOSITORY TYPE CODE TESTS RESULT OUT OF RANGE REFERENCE UNITS LAB L300.4150 11.7-14.9 SECONDS High PROTIME 26.7 LAB L300.4200 Normal INR 2.5 Performed By: #### L300.3900 #### [facility] [address] [place], [place], [address] PROTHROMBIN TIME W/INR Collected: 07/31/2017 Status: F Source: [place] 1:[address] [facility] REPOSITORY TYPE CODE TESTS RESULT OUT OF RANGE REFERENCE UNITS LAB L300.4150 11.7-14.9 SECONDS High PROTIME 27.8 LAB L300.4200 Normal INR 2.6 Performed By: #### L300.3900, L501.9985 #### [facility] [address] [place], [address] HEMOGLOBIN A1C Collected: 07/31/2017 Status: F Source: [place] 1:[address] [facility] REPOSITORY TYPE CODE TESTS RESULT OUT OF RANGE REFERENCE UNITS LAB L501.9985 4.2-6.3 % High HGB A1C 6.9 Performed By: #### L300.3900, L501.9985 #### [facility] [address] [place], [place], [address] INTERNAL MEDICINE Observed: 07/29/2017 Status: F Source: [place] OFFICE VISIT 4:15 PM [facility] [address] [place] [address] [place] [address] OFFICE VISIT Date of Service: 07/29/17 MR#: [id number] Acct: [id number] Name: BETI GARCIA Rep #: [id number] : 1955 Provider: Anika Pedraza DO Age/Sex: 62/F Location: [facility] Status: Signed Intake Vital Signs07/29/17 Height 5 [...] she sees the pulmonary hypertension clinic at [facility] and requested a referral back to the [...] SEVERITY SOURCE 05/27/2018 Drug nitroglycerin/F Other Unknown [facility] Allergy/416 [id number]([facility] 709979(SNOM M) Repository ED CT) 09/17/2012 DRUG NITRATES OTHER: SEE [facility] INGREDI/419 [facility] 059302(SNOM Repository ED CT) 09/17/2012 DRUG/130519 NITRO OTHER: SEE [facility] 003(SNOMED Main [place] CT) Repository 11/06/2003 Chemical/42 ADHESIVE TAPE [facility] 3603320(SNO (ROSINS) [facility] MED CT) Repository ENCOUNTERS ENCOUNTERS ADMIT/DISCHARGE ACCOUNT ADMITTING ENCOUNTER LOCATION SOURCE NUMBER CLASS 05/31/2018 [id number] Ambulatory [facility] Hospital ing:OPBI Repository 05/28/2018 [id number] Ambulatory [facility] Hospital ing:MTLAB Repository 05/27/2018/05/27/19 [id number] Ambulatory BMSBuilding:B [place] 19 MS.Count includes the [facility] Hospital Repository 05/06/2018/05/06/20 [id number] Ambulatory BMSBuilding:B [place] 18 MS.Count includes the [facility] Hospital Repository 05/05/2018/05/05/20 [id number] Ambulatory [place] Hospital ing:MTLAB Repository 04/21/2018 [id number] Ambulatory BMSBuilding:B [place] MS.Count includes the [facility] Hospital Repository 04/06/2018/04/06/20 [id number] Ambulatory BMSBuilding:B [place] 18 MS.Count includes the [facility] Hospital Repository 03/25/2018/03/25/20 [id number] Ambulatory [address] Repository 03/25/2018/03/29/20 [id number] Ambulatory [address] Repository 03/25/2018/03/25/20 [id number] Ambulatory [address] Repository 03/24/2018 [id number] Ambulatory BMSBuilding:B [place] MS.Count includes the [facility] Hospital Repository 03/15/2018/03/15/20 [id number] Ambulatory BMSBuilding:B [place] 18 MS.Count includes the [facility] Hospital Repository 03/15/2018/03/15/20 [id number] Ambulatory BMSBuilding:B [place] 18 MS.Count includes the [facility] Hospital Repository 03/03/2018/03/03/20 [id number] Ambulatory BMSBuilding:B [place] 18 MS.Count includes the [facility] Hospital Repository 02/25/2018/02/26/20 [id number] Ambulatory BMSBuilding:B [place] 18 MS.Count includes the [facility] Hospital Repository 02/24/2018 [id number] Ambulatory BMSBuilding:B [place] MS.Count includes the [facility] Hospital Repository 02/23/2018/02/24/20 [id number] Ambulatory [place] Hospital ing:LAB Repository 02/08/2018 [id number] [facility] ing:MTLAB Repository 02/04/2018/02/05/20 [id number] Ambulatory BMSBuilding:B [place] [facility] Repository 02/02/2018/02/03/20 [id number] Ambulatory [place] [facility] Hospital ing:LAB Repository 01/27/2018 [id number] Ambulatory BMSBuilding:B [place] [facility] Repository 01/06/2018/01/07/20 [id number] Ambulatory [place] [facility] Hospital ing:LAB Repository 12/30/2017 [id number] [facility] Repository 12/30/2017/12/31/19 [id number] Ambulatory BMSBuilding:B [place] 18 [facility] Repository 11/25/2017/11/26/19 [id number] Ambulatory BMSBuilding:B [place] 18 [facility] Repository 11/24/2017/11/25/19 [id number] Ambulatory [place] Hospital ing:LAB Repository 11/09/2017 [id number] Ambulatory BMSBuilding:B [place] [facility] Repository 10/13/2017/10/14/19 [id number] Ambulatory BMSBuilding:B [place] 18 [facility] Repository 10/06/2017/10/07/19 [id number] Ambulatory [address] Repository 10/06/2017/10/10/19 [id number] Ambulatory [address] Repository 09/29/2017/09/30/19 [id number] Ambulatory [place] [address] [place] [address] [facility] Hospital ing:LAB Repository 09/23/2017/09/25/19 [id number] Ambulatory [address] Repository 09/23/2017/09/29/19 [id number] Ambulatory [address] Repository 09/23/2017/09/24/19 [id number] Ambulatory [address] Repository 09/23/2017 [id number] Ambulatory [facility] Repository 08/26/2017/08/27/19 [id number] Ambulatory BMSBuilding:B [place] [facility] Repository 08/25/2017/08/26/19 [id number] [place] [address] [place] [address] ing:LAB Repository 07/31/2017 [id number] Ambulatory [place] [facility] ing:LAB Repository 07/29/2017/07/30/19 [id number] Ambulatory BMSBuilding:B [place] [address] Repository PAYERS PAYERS ENCOUNTER GUARANTOR PAYER SUBSCRIBER SOURCE 05/31/2018 BETI A Primary BETI A [place] [id number] Insurance:SCOTTCOLIN SUN: Community [employer] MEDICARE SENIOR [id number]: Repository [id number]: (330 [id number] [phone] (HP) Date:2761-39-32ZP [address] [place] [address] 59495XO: 05/31/2018 Secondary NOT GIVENUNK [place] Insurance:SELF PAY [facility] Number: Effective Repository Date:2018-04-08 05/28/2018 BETI A Primary BETI A [place] [id number] Insurance:SCOTTCOLIN SHILOErrol: Community [employer] MEDIC[employer] SENIOR [id number] Number: Repository [id number]: ([phone] [id number] [phone] (HP) Date:0063-17-07GI [address] [place] [address] 70528KZ: 05/28/2018 Secondary NOT GIVENUNK [place] Insurance:SELF PAY [facility] Number: Effective Repository Date:2018-05-10 05/27/2018 BETI A Primary BETI A [place] [id number] Insurance:MERCEDES SUN: Community [employer] MEDIC[employer] SENIOR [id number] Number: Repository [id number]: (330 [id number] [phone] (HP) Date:2106-40-14ZJ [address] [place] [address] 21550IZ: 05/27/2018 Secondary NOT GIVENUNK [place] Insurance:SELF PAY [facility] Number: Effective Repository Date:2018-05-20 05/06/2018 BETI A Primary BETI A [place] [id number] Insurance:MERCEDES SUN: Community [employer] MEDIC[employer] SENIOR [id number] ADVANTAPolicy Number: Repository [id number]: 330 [id number] [phone] (HP) Date:2888-94-32UP [id number] [place] [address] 619[address]RS: 05/06/2018 Secondary NOT GIVENUNK [place] Insurance:SELF PAY [facility] Number: Effective Repository Date:2017-11-05 05/05/2018 BETI A Primary BETI A [place] [id number] Insurance:MERCEDES GARCIAB: Community [employer] MEDICARE SENIOR [id number] [place], [place] AD[facility]ANT[facility] Number: Repository [id number]: 330 [id number] [phone] () Date:6703-56-53TG [address] [place] [address] 095[address]VP: 05/05/2018 Secondary NOT GIVENUNK [place] Insurance:SELF PAY [facility] Number: Effective Repository Date:2018-03-11 04/21/2018 BETI A Primary BETI A [place] [id number] Insurance:MERCEDES LAOErrol: Community [employer] MEDIC[employer] SENIOR [id number] [place], [place] AD[facility]ANT[facility] Number: Repository [id number]: 330 [id number] [phone] (HP) Date:9592-51-62BB [address] [place] [address] 54[address]TM: 04/21/2018 Secondary NOT GIVENUNK [place] Insurance:SELF PAY [facility] Number: Effective Repository Date:2017-10-24 04/06/2018 BETI A Primary BETI A [place] [id number] Insurance:MERCEDES GARCIASANG: Community [employer] [id number]: Repository [id number]: (330 [id number] [phone] (HP) Date:5680-16-85WU [address]CMOCJXR, [place] [address]GM: 04/06/2018 Secondary NOT GIVENUNK [place] Insurance:SELF PAY [facility]: Effective Repository Date:2017-11-05 03/24/2018 BETI A Primary BETI A [place] [id number] Insurance:ANTHEM BRITTNEYDOB: Community [employer] [id number] Number: Repository [id number]: (330 [id number] [phone] (HP) Date:4163-97-43PM [address]STBZHTK, [place] [address]DM: 03/24/2018 Secondary NOT GIVENUNK [place] Insurance:SELF PAY [facility] Number: Effective Repository Date:2017-10-24 03/15/2018 BETI A Primary BETI A [place] [id number] Insurance:ANTHCOLIN LAOB: Community [employer] [id number] Number: Repository [id number]: (330) [id number] [phone] (HP) Date:0400-00-96GH [address]JSMDADP, [place] [address]NR: 03/15/2018 Secondary NOT GIVENUNK [place] Insurance:SELF PAY [facility] Number: Effective Repository Date:2018-03-15 03/15/2018 BETI A Primary BETI A [place] [id number] Insurance:MERCEDES LAOB: Community [employer] [id number] Number: Repository [id number]: (330 [id number] [phone] (HP) Date:1767-13-78BN [address]NAKCIMF, [place] [address]AE: 03/15/2018 Secondary NOT GIVENUNK [place] Insurance:SELF PAY [facility] Number: Effective Repository Date:2018-03-15 03/03/2018 BETI A Primary BETI [place] [id number] Insurance:MERCEDES SUN: Community [employer] [id number] [place] Number: Repository [id number]: 330 [id number] [phone] (HP) Date:8890-32-73LV [address] [place] [address]RR: 03/03/2018 Secondary NOT GIVENUNK [place] Insurance:SELF PAY [facility] Number: Effective Repository Date:2018-03-03 02/25/2018 BETI A Primary BETI A [place] [id number] Insurance:MERCEDES LAOB: Community [employer] [id number] Number: Repository [id number]: 330 [id number] [phone] (HP) Date:1356-98-32KD [address] [place] [address] 07[address]RD: 02/25/2018 Secondary NOT GIVENUNK [place] Insurance:SELF PAY [facility] Number: Effective Repository Date:2017-11-05 02/24/2018 BETI A Primary BETI A [place] [id number] Insurance:MERCEDES SUN: Community [employer] [id number] [place] Number: Repository [id number]: 330 [id number] [phone] (HP) Date:9485-58-97QJ [address] [place] [address]JV: 02/24/2018 Secondary NOT GIVENUNK [place] Insurance:SELF PAY [facility] Number: Effective Repository Date:2017-10-24 02/23/2018 BETI A Primary BETI A [place] [id number] Insurance:MERCEDES LAOB: Community [employer] [id number] [place]: Repository [id number]: (330 [id number] [phone] (HP) Date:5388-90-59IP [address]ZKOMIFZ [place] [address]CS: 02/23/2018 Secondary NOT GIVENUNK [place] Insurance:SELF PAY [facility] Number: Effective Repository Date:2018-02-10 02/08/2018 BETI A Primary BETI A [place] [id number] Insurance:ANTHCOLIN LAOB: Community [employer] [id number] [place] Number: Repository [id number]: (330) [id number] [phone] (HP) Date:7290-06-08SA [address] [place] [address] [place] [address]TB: 02/08/2018 Secondary NOT GIVENUNK [place] Insurance:SELF PAY [facility] Number: Effective Repository Date:2018-02-08 02/04/2018 BETI A Primary BETI A [place] [id number] Insurance:MERCEDES LAOB: Community [employer] [id number] [place] Number: Repository [id number]: (330) [id number] [phone] (HP) Date:3772-07-63JA [address] [place] [address] [place] [address]TS: 02/04/2018 Secondary NOT GIVENUNK [place] Insurance:SELF PAY [facility] Number: Effective Repository Date:2017-11-05 02/02/2018 BETI A Primary BETI A [place] [id number] Insurance:MERCEDES LAOB: Community [employer] [id number] [place] Number: Repository [id number]: (330 [id number] [phone] (HP) Date:3908-03-60TX [address]ZEPRJTU [place] [address]YB: 02/02/2018 Secondary NOT GIVENUNK [place] Insurance:SELF PAY [facility] Number: Effective Repository Date:2018-01-12 01/27/2018 BETI A Primary BETI A [place] [id number] Insurance:MERCEDES SUN: Community [employer] [id number] [place] Number: Repository [id number]: 330 [id number] [phone] (HP) Date:4305-04-35MV [address] [place] [address] 800[address]NX: 01/27/2018 Secondary NOT GIVENUNK [place] Insurance:SELF PAY [facility] Number: Effective Repository Date:2017-10-24 01/06/2018 BETI A Primary BETI A [place] [id number] Insurance:MERCEDES LAOB: Community [employer] [id number] [place]: Repository [id number]: (330 [id number] [phone] (HP) Date:6358-44-59RA [address] [place] [address] 20482SR: 01/06/2018 Secondary NOT GIVENUNK [place] Insurance:SELF PAY [facility] Number: Effective Repository Date:2017-12-10 12/30/2017 BETI A Primary BETI A [place] [id number] Insurance:MERCEDES LAOB: Community [employer] [id number] [place] Number: Repository [id number]: (330 [id number] [phone] (HP) Date:5015-43-24HU [address] [place] [address] 95002CL: 12/30/2017 Secondary NOT GIVENUNK [place] Insurance:SELF PAY [facility] Number: Effective Repository Date:2017-12-30 12/30/2017 BETI A Primary BETI A [place] [id number] Insurance:MERCEDES LAOB: Community [employer] [id number] [place]: Repository [id number]: (330 [id number] [phone] (HP) Date:0368-26-52JB [address]IDHHFHK, [place] [address]FP: 12/30/2017 Secondary NOT GIVENUNK [place] Insurance:SELF PAY [facility] Number: Effective Repository Date:2017-12-30 11/25/2017 BETI A Primary BETI A [place] [id number] Insurance:MERCEDES SUN: Community [employer] [id number] [place] Number: Repository [id number]: 330 [id number] [phone] (HP) Date:3071-95-44KM [address]UXESLGU, [place] [address]QV: 11/25/2017 Secondary NOT GIVENUNK [place] Insurance:SELF PAY [facility] Number: Effective Repository Date:2017-11-25 11/24/2017 BETI A Primary BETI A [place] [id number] Insurance:MERCEDES SUN: Community [employer] [id number] [place] Number: Repository [id number]: 330 [id number] [phone] (HP) Date:2416-65-10CV [address]TVEOGCO, [place] [address]VJ: 11/24/2017 Secondary NOT GIVENUNK [place] Insurance:SELF PAY [facility] Number: Effective Repository Date:2017-10-08 11/09/2017 BETI A Primary BETI A [place] [id number] Insurance:MERCEDES BRITTNEYSANG: Community [employer] [id number] [place] Number: Repository [id number]: 330 [id number] [phone] (HP) Date:8932-51-02TX [address]DPUFDQJ, [place] [address]TE: 11/09/2017 Secondary NOT GIVENUNK [place] Insurance:SELF PAY [facility] Number: Effective Repository Date:2017-11-09 10/13/2017 BETI A Primary BETI A [place] [id number] Insurance:MERCEDES SUN: Community [employer] [id number] [place] Number: Repository [id number]: (330 [id number] [phone] (HP) Date:2396-45-49JA [address]EAZKVNY [place] [address]GV: 10/13/2017 Secondary NOT GIVENUNK [place] Insurance:SELF PAY [facility] Number: Effective Repository Date:2017-10-22 09/29/2017 BETI A Primary BETI A [place] [id number] Insurance:MERCEDES SUN: Community [employer] [id number] [place] Number: Repository [id number]: (330) [id number] [phone] (HP) Date:0180-54-23FF [address]NSRNUT [place] [address]GS: 09/29/2017 Secondary NOT GIVENUNK [place] Insurance:SELF PAY [facility] Number: Effective Repository Date:2017-09-08 08/26/2017 BETI A Primary BETI A [place] [id number] Insurance:MERCEDES SUN: Community [employer] [id number] [place]: Repository [id number]: (330) [id number] [phone] (HP) Date:8093-91-90QW [address] [place] [address] [place] [address]HU: 08/26/2017 Secondary NOT GIVENUNK [place] Insurance:SELF PAY [facility] Number: Effective Repository Date:2017-08-25 08/25/2017 BETI A Primary BETI A [place] [id number] Insurance:MERCEDES SUN: Community [employer] [id number] [place]: Repository [id number]: (330) [id number] [phone]) Date:4994-93-50WR [address] [place], [place] [address], [place] [address]JE: 08/25/2017 Secondary NOT GIVENUNK [place] Insurance:SELF PAY [facility] Number: Effective Repository Date:2017-08-25 07/31/2017 BETI [place] BETI [place] [id number] Insurance:MERCEDES SUN: Community [employer] [id number] [place]APolic Number: Repository [id number]: 330 [id number] [phone] Date:6265-84-54SK [address] [place] [address]WY: 07/31/2017 Secondary NOT GIVENUNK [place] Insurance:SELF PAY [facility] Number: Effective Repository Date:2017-07-31 07/29/2017 BETI [place] Primary BETI [place] [id number] Insurance:MERCEDES SUN: [facility] MEDICARE PPOPolicy [id number] Number: [place]ository [place] [address]Tgo: [id number] Date:5184-97-08YB [address] () [address]NLPCFMI, [place] [address]KW: 07/29/2017 Secondary NOT GIVENUNK [place] Insurance:SELF PAY [facility] Number: Effective Repository Date:2017-07-29
== END ==
PROVIDERS: Family Provider Family Medicine; PCP Family Medicine; Referring Provider Family Medicine; Visit Provider Family Medicine
DX: Z12.31 Encounter for screening mammogram for malignant neoplasm of breast (principal)
CPT/HCPCS: 77063; 77067

== ENCOUNTER 2018-07-28 15:59 | Outpatient (RCR) | payer MEDICARE, SELFPAY ==
[2018-05-27 14:33] VITALS: BMI 34.9
[2018-07-28 17:32] LABS: Prothrombin Time (Protime)PT. 30.9 SECONDS (11.7-14.9)
== END 2018-07-28 16:00 | disposition home or self-care (01) ==
LOC: MTLAB 15:59
PROVIDERS: Family Provider Family Medicine; PCP Family Medicine; Referring Provider Family Medicine; Visit Provider Family Medicine
DX: D68.62 Lupus anticoagulant syndrome (principal)
CPT/HCPCS: 36415; 85610

== ENCOUNTER 2018-08-31 15:14 | Outpatient (RCR) | payer MEDICARE, SELFPAY ==
[2018-08-06 13:32] VITALS: BMI 34.9
[2018-08-31 17:35] LABS: International Normalized Ratio 2.9; Prothrombin Time (Protime)PT. 30.2 SECONDS (11.7-14.9)
== END 2018-09-07 16:00 | disposition home or self-care (01) ==
LOC: MTLAB 15:14
PROVIDERS: Family Provider Family Medicine; PCP Family Medicine; Referring Provider Family Medicine; Visit Provider Family Medicine
DX: D68.62 Lupus anticoagulant syndrome (principal)
CPT/HCPCS: 36415; 85610

== ENCOUNTER 2018-09-28 15:46 | Outpatient (RCR) | payer MEDICARE, SELFPAY ==
[2018-09-01 14:44] VITALS: BMI 34.9
[2018-09-28 17:42] LABS: International Normalized Ratio 2.4; Prothrombin Time (Protime)PT. 26.3 SECONDS (11.7-14.9)
== END 2018-09-28 17:00 | disposition home or self-care (01) ==
LOC: MTLAB 15:46
PROVIDERS: Family Provider Family Medicine; PCP Family Medicine; Referring Provider Family Medicine; Visit Provider Family Medicine
DX: D68.62 Lupus anticoagulant syndrome (principal); I48.91 Unspecified atrial fibrillation; J44.9 Chronic obstructive pulmonary disease, unspecified; F40.240 Claustrophobia; F41.9 Anxiety disorder, unspecified; F32.9 Major depressive disorder, single episode, unspecified; E11.9 Type 2 diabetes mellitus without complications; I27.21 Secondary pulmonary arterial hypertension; Z86.73 Personal history of transient ischemic attack (TIA), and cerebral infarction without residual deficits
CPT/HCPCS: 36415; 85610

== ENCOUNTER 2018-10-26 15:12 | Outpatient (RCR) | payer MEDICARE, SELFPAY ==
[2018-10-09 07:21] VITALS: BMI 34.9
[2018-10-26 17:28] LABS: International Normalized Ratio 2.2; Prothrombin Time (Protime)PT. 24.1 SECONDS (11.7-14.9)
== END 2018-10-26 15:30 | disposition home or self-care (01) ==
LOC: MTLAB 15:12
PROVIDERS: Family Provider Family Medicine; PCP Family Medicine; Referring Provider Family Medicine; Visit Provider Family Medicine
DX: D68.62 Lupus anticoagulant syndrome (principal); I48.91 Unspecified atrial fibrillation; J44.9 Chronic obstructive pulmonary disease, unspecified; F40.240 Claustrophobia; F41.9 Anxiety disorder, unspecified; F32.9 Major depressive disorder, single episode, unspecified; E11.9 Type 2 diabetes mellitus without complications; I27.21 Secondary pulmonary arterial hypertension; Z86.73 Personal history of transient ischemic attack (TIA), and cerebral infarction without residual deficits
CPT/HCPCS: 36415; 85610

== ENCOUNTER 2018-11-23 16:18 | Outpatient (RCR) | payer MEDICARE, SELFPAY ==
[2018-10-27 14:01] VITALS: BMI 34.9
[2018-11-23 17:49] LABS: International Normalized Ratio 2.4; Prothrombin Time (Protime)PT. 26.4 SECONDS (11.7-14.9)
== END 2018-12-08 15:55 | disposition home or self-care (01) ==
LOC: MTLAB 16:18
PROVIDERS: Family Provider Family Medicine; PCP Family Medicine; Referring Provider Family Medicine; Visit Provider Family Medicine
DX: D68.62 Lupus anticoagulant syndrome (principal)
CPT/HCPCS: 36415; 85610

== ENCOUNTER 2019-02-04 14:01 | Outpatient (RCR) | payer MEDICARE, SELFPAY ==
[2018-11-24 14:00] VITALS: BMI 34.9
[2019-01-13 15:12] VITALS: BMI 34.9
[2019-01-13 17:57] LABS: International Normalized Ratio 2.9; Prothrombin Time (Protime)PT. 30.1 SECONDS (11.7-14.9)
[2019-02-04 15:42] LABS: International Normalized Ratio 2.9; Prothrombin Time (Protime)PT. 30.6 SECONDS (11.7-14.9)
== END 2019-02-04 18:00 | disposition home or self-care (01) ==
LOC: MTLAB 14:01
PROVIDERS: Family Provider Family Medicine; PCP Family Medicine; Referring Provider Family Medicine; Visit Provider Family Medicine
DX: D68.62 Lupus anticoagulant syndrome (principal)
CPT/HCPCS: 36415; 85610

== ENCOUNTER 2019-03-18 12:18 | Outpatient (RCR) | payer MEDICARE, SELFPAY ==
[2019-01-13 15:12] VITALS: BMI 34.9
[2019-03-16 15:04] VITALS: BMI 39.1
[2019-03-18 15:39] LABS: International Normalized Ratio 2.3; Prothrombin Time (Protime)PT. 25.6 SECONDS (11.7-14.9)
== END 2019-03-18 18:00 | disposition home or self-care (01) ==
LOC: MTLAB 12:18
PROVIDERS: Family Provider Family Medicine; PCP Family Medicine; Referring Provider Family Medicine; Visit Provider Family Medicine
DX: Z79.01 Long term (current) use of 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 (principal)
CPT/HCPCS: 36415; 85610

== ENCOUNTER 2019-04-13 15:53 | Outpatient (RCR) | payer MEDICARE, SELFPAY ==
[2019-03-16 15:04] VITALS: BMI 39.1
[2019-04-13 17:44] LABS: International Normalized Ratio 2.7; Prothrombin Time (Protime)PT. 28.9 SECONDS (11.7-14.9)
== END 2019-04-13 18:00 | disposition home or self-care (01) ==
LOC: MTLAB 15:53
PROVIDERS: Family Provider Family Medicine; PCP Family Medicine; Referring Provider Family Medicine; Visit Provider Family Medicine
DX: D68.62 Lupus anticoagulant syndrome (principal); Z79.01 Long term (current) use of 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
CPT/HCPCS: 36415; 85610

== ENCOUNTER 2019-05-18 15:27 | Outpatient (RCR) | payer MEDICARE, SELFPAY ==
[2019-04-14 14:36] VITALS: BMI 39.1
[2019-05-18 18:21] LABS: International Normalized Ratio 2.3; Prothrombin Time (Protime)PT. 25.5 SECONDS (11.7-14.9)
== END 2019-05-18 18:00 | disposition home or self-care (01) ==
LOC: MTLAB 15:27
PROVIDERS: Family Provider Family Medicine; PCP Family Medicine; Referring Provider Family Medicine; Visit Provider Family Medicine
DX: D68.62 Lupus anticoagulant syndrome (principal); Z79.01 Long term (current) use of 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
CPT/HCPCS: 36415; 85610

== ENCOUNTER 2019-06-27 15:00 | Outpatient (RCR) | payer MEDICARE, SELFPAY ==
[2019-05-19 15:55] VITALS: BMI 39.1
[2019-06-27 17:52] LABS: International Normalized Ratio 2.4; Prothrombin Time (Protime)PT. 26.3 SECONDS (11.7-14.9)
== END 2019-06-27 18:00 | disposition home or self-care (01) ==
LOC: MTLAB 15:00
PROVIDERS: Family Provider Family Medicine; PCP Family Medicine; Referring Provider Family Medicine; Visit Provider Family Medicine
DX: Z79.01 Long term (current) use of 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 (principal)
CPT/HCPCS: 36415; 85610

== ENCOUNTER → 2019-08-16 15:34 | Outpatient (CLI) | payer MEDICARE, SELFPAY ==
[2019-06-28 14:48] VITALS: BMI 39.1
[2019-08-16 16:37] LABS: International Normalized Ratio 2.8; Prothrombin Time (Protime)PT. 28.9 SECONDS (11.7-14.9)
== END ==
PROVIDERS: PCP Family Medicine; Referring Provider Family Medicine; Visit Provider Family Medicine
DX: Z79.01 Long term (current) use of 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 (principal)
CPT/HCPCS: 85610

== ENCOUNTER 2019-09-16 16:24 | Outpatient (RCR) | payer MEDICARE, SELFPAY ==
[2019-06-28 14:48] VITALS: BMI 39.1
[2019-09-13 15:23] VITALS: BMI 39.1
== END 2019-09-16 18:00 | disposition home or self-care (01) ==
LOC: MTLAB 16:24
PROVIDERS: Family Provider Family Medicine; PCP Family Medicine; Referring Provider Family Medicine; Visit Provider Family Medicine
DX: Z79.01 Long term (current) use of 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 (principal)

== ENCOUNTER → 2019-09-26 16:10 | Outpatient (CLI) | payer MEDICARE, SELFPAY ==
[2019-09-13 15:23] VITALS: BMI 39.1
[2019-09-26 17:05] LABS: International Normalized Ratio 2.7; Prothrombin Time (Protime)PT. 28.3 SECONDS (11.7-14.9)
== END ==
PROVIDERS: PCP Family Medicine; Referring Provider Family Medicine; Visit Provider Family Medicine
DX: Z79.01 Long term (current) use of 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 (principal)
CPT/HCPCS: 85610

== ENCOUNTER 2019-10-26 15:47 | Outpatient (RCR) | payer MEDICARE, SELFPAY ==
[2019-09-13 15:23] VITALS: BMI 39.1
[2019-10-26 14:59] VITALS: BMI 39.1
[2019-10-26 17:03] LABS: International Normalized Ratio 2.6; Prothrombin Time (Protime)PT. 27.6 SECONDS (11.7-14.9)
[2019-10-26 17:09] LABS: ALB/GLOB Ratio 1.1 RATIO (0.9-2.4); AST(SGOT) 17 U/L (15-37); Alanine Aminotransfer ALT/SGPT 33 U/L (13-56); Albumin, Serum 3.9 g/dL (3.2-5.0); Alkaline Phosphatase 128 U/L (45-117); Anion Gap 7 (5-15); BUN 9 mg/dL (7-18); BUN/Creat Ratio 13.1 RATIO (10-20); Calcium,Total 9.8 mg/dL (8.5-10.1); Chloride 99 mmol/L (98-107); Cholesterol 180 mg/dL (200); Creatinine, Serum 0.69 mg/dL (0.55-1.02); EST Glomerular Filtration Rate 91 mL/min (>60); Est Glom Filt Rate - Afr Amer 110 mL/min (>60); Globulin 3.7 g/dL (2.2-4.2); Glucose 170 mg/dL (74-106); High Density Lipoprotein 40 mg/dL; Protein, Total 7.6 g/dL (6.4-8.2); Sodium Level 136 mmol/L (136-145); Triglycerides 204 mg/dL; Very Low Density Lipoprotein 41 mg/dL (5-40)
[2019-10-26 17:12] LABS: Hemoglobin A1c 8.7 % (3.8-5.6)
== END 2019-11-08 23:59 ==
LOC: BIMLAB 15:47
PROVIDERS: Family Provider Family Medicine; PCP Family Medicine; Referring Provider Family Medicine; Visit Provider Family Medicine
DX: Z79.01 Long term (current) use of 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 (principal); D68.62 Lupus anticoagulant syndrome; G45.9 Transient cerebral ischemic attack, unspecified; E11.9 Type 2 diabetes mellitus without complications
CPT/HCPCS: 36415; 80053; 80061; 83036; 85610

== ENCOUNTER 2019-11-23 15:43 | Outpatient (RCR) | payer MEDICARE, SELFPAY ==
[2019-11-23 15:26] VITALS: BMI 39.1
[2019-11-23 17:08] LABS: International Normalized Ratio 2.7
== END 2019-12-09 23:59 ==
LOC: BIMLAB 15:43
PROVIDERS: Family Provider Family Medicine; PCP Family Medicine; Referring Provider Family Medicine; Visit Provider Family Medicine
DX: Z79.01 Long term (current) use of 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 (principal)
CPT/HCPCS: 36415; 85610

== ENCOUNTER 2019-12-28 15:42 | Outpatient (RCR) | payer MEDICARE, SELFPAY ==
[2019-12-28 18:02] LABS: International Normalized Ratio 2.4; Prothrombin Time (Protime)PT. 25.3 SECONDS (11.7-14.9)
== END 2020-01-09 23:59 ==
LOC: BIMLAB 15:42
PROVIDERS: Family Provider Family Medicine; PCP Family Medicine; Referring Provider Family Medicine; Visit Provider Family Medicine
DX: D68.62 Lupus anticoagulant syndrome (principal)
CPT/HCPCS: 36415; 85610

== ENCOUNTER → 2020-01-19 10:20 | Outpatient (CLI) | payer MEDICARE, SELFPAY ==
[2020-01-17 11:23] VITALS: BMI 39.1
== END ==
PROVIDERS: PCP Family Medicine; Referring Provider Nurse Practitioner Family; Visit Provider Nurse Practitioner Family
DX: Z20.828 Contact with and (suspected) exposure to other viral communicable diseases (principal)
CPT/HCPCS: 87635; C9803; U0003

== ENCOUNTER 2020-01-25 15:17 | Outpatient (RCR) | payer MEDICARE, SELFPAY ==
[2019-12-28 15:10] VITALS: BMI 39.1
[2020-01-25 14:34] VITALS: BMI 39.1
[2020-01-25 16:52] LABS: International Normalized Ratio 2.6; Prothrombin Time (Protime)PT. 27.1 SECONDS (11.7-14.9)
[2020-01-25 18:25] LABS: Hemoglobin A1c 7.1 % (3.8-5.6)
== END 2020-02-08 23:59 ==
LOC: BIMLAB 15:17
PROVIDERS: Family Provider Family Medicine; PCP Family Medicine; Referring Provider Family Medicine; Visit Provider Family Medicine
DX: E11.9 Type 2 diabetes mellitus without complications (principal); Z79.01 Long term (current) use of 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
CPT/HCPCS: 36415; 83036; 85610

== ENCOUNTER 2020-02-22 15:10 | Outpatient (RCR) | payer MEDICARE, SELFPAY ==
[2020-02-22 17:33] LABS: International Normalized Ratio 2.2; Prothrombin Time (Protime)PT. 24.2 SECONDS (11.7-14.9)
== END 2020-03-10 23:59 ==
LOC: BIMLAB 15:10
PROVIDERS: Family Provider Family Medicine; PCP Family Medicine; Referring Provider Family Medicine; Visit Provider Family Medicine
DX: Z79.01 Long term (current) use of 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 (principal)
CPT/HCPCS: 36415; 85610

== ENCOUNTER 2020-03-21 15:11 | Outpatient (RCR) | payer MEDICARE, SELFPAY ==
[2020-03-21 14:28] VITALS: BMI 37.5
[2020-03-21 17:22] LABS: International Normalized Ratio 2.2; Prothrombin Time (Protime)PT. 24.1 SECONDS (11.7-14.9)
== END 2020-04-09 23:59 ==
LOC: BIMLAB 15:11
PROVIDERS: Family Provider Family Medicine; PCP Family Medicine; Referring Provider Family Medicine; Visit Provider Family Medicine
DX: Z79.01 Long term (current) use of 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 (principal)
CPT/HCPCS: 36415; 85610

== ENCOUNTER → 2020-03-23 17:36 | Outpatient (CLI) | payer MEDICARE, SELFPAY ==
[2020-03-21 14:28] VITALS: BMI 37.5
== END ==
PROVIDERS: PCP Family Medicine
DX: I27.24 Chronic thromboembolic pulmonary hypertension (principal)
CPT/HCPCS: 87635; C9803; U0003

== ENCOUNTER → 2020-03-27 12:19 | Outpatient (CLI) | payer MEDICARE, SELFPAY ==
[2020-03-21 14:28] VITALS: BMI 37.5
[2020-03-27 15:22] LABS: Prothrombin Time (Protime)PT. 22.6 SECONDS (11.7-14.9)
== END ==
PROVIDERS: PCP Family Medicine; Referring Provider Family Medicine; Visit Provider Family Medicine
DX: Z79.01 Long term (current) use of 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 (principal)
CPT/HCPCS: 36415; 85610

== ENCOUNTER 2020-04-23 14:33 | Outpatient (RCR) | payer MEDICARE, SELFPAY ==
[2020-04-23 18:20] LABS: International Normalized Ratio 2.1; Prothrombin Time (Protime)PT. 22.9 SECONDS (11.7-14.9)
== END 2020-04-23 18:00 | disposition home or self-care (01) ==
LOC: MTLAB 14:33
PROVIDERS: Family Provider Family Medicine; PCP Family Medicine; Referring Provider Family Medicine; Visit Provider Family Medicine
DX: Z79.01 Long term (current) use of 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 (principal)
CPT/HCPCS: 36415; 85610

== ENCOUNTER 2020-05-24 14:56 | Outpatient (RCR) | payer MEDICARE, SELFPAY ==
[2020-04-24 15:59] VITALS: BMI 37.8
[2020-05-23 15:34] VITALS: BMI 37.8
[2020-05-24 18:33] LABS: International Normalized Ratio 2.2; Prothrombin Time (Protime)PT. 24.2 SECONDS (11.7-14.9)
== END 2020-05-24 18:00 | disposition home or self-care (01) ==
LOC: MTLAB 14:56
PROVIDERS: Family Provider Family Medicine; PCP Family Medicine; Referring Provider Family Medicine; Visit Provider Family Medicine
DX: Z79.01 Long term (current) use of 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 (principal)
CPT/HCPCS: 36415; 85610

== ENCOUNTER 2020-07-03 15:24 | Outpatient (RCR) | payer MEDICARE, SELFPAY ==
[2020-05-23 15:34] VITALS: BMI 37.8
[2020-07-03 14:39] VITALS: BMI 39.3
[2020-07-03 16:56] LABS: International Normalized Ratio 2.6; Prothrombin Time (Protime)PT. 27.4 SECONDS (11.7-14.9)
== END 2020-07-08 23:59 ==
LOC: BIMLAB 15:24
PROVIDERS: Family Provider Family Medicine; PCP Family Medicine; Referring Provider Family Medicine; Visit Provider Family Medicine
DX: Z79.01 Long term (current) use of 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 (principal)
CPT/HCPCS: 36415; 85610

== ENCOUNTER 2020-07-30 16:12 | Outpatient (RCR) | payer MEDICARE, SELFPAY ==
[2020-07-30 17:44] LABS: International Normalized Ratio 3.1; Prothrombin Time (Protime)PT. 31.4 SECONDS (11.7-14.9)
== END 2020-07-30 18:00 | disposition home or self-care (01) ==
LOC: MTLAB 16:12
PROVIDERS: Family Provider Family Medicine; PCP Family Medicine; Referring Provider Family Medicine; Visit Provider Family Medicine
DX: Z79.01 Long term (current) use of 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 (principal)
CPT/HCPCS: 36415; 85610

== ENCOUNTER 2020-08-20 20:41 | Emergency (ER) | payer MEDICARE, SELFPAY ==
[2020-07-31 14:33] VITALS: BMI 39.9
[2020-08-20 20:42] VITALS: BP 172/75; PULSE 98; RESP 18; RESP 20; TEMP 36.4; O2SAT 98; BMI 38.6
[2020-08-20 20:46] VITALS: BP 172/75; PULSE 96; RESP 18; TEMP 36.4; O2SAT 98
--- NOTE | 2020-08-20 20:47 | EKG12_ITS ---
Test Reason : CONFUSION Blood Pressure : / mmHG Vent. Rate : 099 BPM Atrial Rate : 099 BPM P-R Int : 252 ms QRS Dur : 086 ms QT Int : 324 ms P-R-T Axes : 063 -29 080 degrees QTc Int : 415 ms Sinus rhythm with 1st degree A-V block with occasional Premature ventricular complexes Inferior infarct , age undetermined , cannot be excluded Poor R wave progression Abnormal ECG Confirmed by RAFA WALLACE, BLAYNE ([id number]), index editor LISETH CHI ([id number]) on 08/22/2020 11:23:38 AM Referred By: Confirmed By:BLAYNE CRAIG MD
[2020-08-20 21:24] LABS: Absolute Lymphocyte Count 1.05 X10^3/uL (0.83-4.51); Absolute Neutrophil Count 8.5 X10^3/uL (2.0-7.7); Basophil# 0.03 X10^3/uL; Basophil% 0.3 % (0-1); Eosinophil# 0.17 X10^3/uL; Eosinophils% 1.6 % (0-5); Hematocrit 37.6 % (37-47); Hemoglobin 9.6 g/dL (12.0-15.0); Lymphocyte # 1.05 X10^3/ul (4.0); Mean Corp Hgb Conc 25.5 g/dL (32-36); Mean Corpuscular Hgb 16.4 pg (27.0-32.0); Mean Corpuscular Volume 64.4 fL (81-99); Mean Platelet Vol. 9.8 fl (6.2-12.0); Monocyte# 0.71 X10^3/uL; Monocyte% 6.8 % (0-10); NRBC Flagged by Analyzer 0.2 % (0-5); Neutrophil # 8.46 X10^3/uL (2.7-7.7); Neutrophil % 80.7 % (47-70); POSITIVE MORPHOLOGY YES; Platelet Count 265 K/mm3 (150-450); RBC Distribution Width CV 20.4 % (11.6-14.6); RBC Distribution Width SD 44.2 fl (35.1-43.9); Red Blood Count 5.84 M/mm3 (4.2-5.4); White Blood Count 10.5 K/mm3 (4.4-11.0)
[2020-08-20 21:32] LABS: Differential Indicated SCAN CRITERIA MET
[2020-08-20 21:37] LABS: Anion Gap 7 (5-15); BUN 10 mg/dL (7-18); BUN/Creat Ratio 16.7 RATIO (10-20); Calcium,Total 9.4 mg/dL (8.5-10.1); Chloride 98 mmol/L (98-107); EST Glomerular Filtration Rate 106 mL/min (>60); Est Glom Filt Rate - Afr Amer 128 mL/min (>60); Estimated Creatinine Clearance 47.79 ml/min; Glucose 165 mg/dL (74-106); Potassium 3.9 mmol/L (3.5-5.1); Sodium Level 131 mmol/L (136-145)
[2020-08-20 21:38] LABS: International Normalized Ratio 1.9; Prothrombin Time (Protime)PT. 20.9 SECONDS (11.7-14.9)
--- NOTE | 2020-08-20 21:50 | RAD_ITS ---
STUDY: X-RAY CHEST REASON FOR EXAM: Female, 65 years old. Stroke TECHNIQUE: Single frontal view of the chest. COMPARISON: None. FINDINGS: There is a nonspecific opacity within the right lower lung. There are prominent interstitial markings. Normal size heart. Normal mediastinum and vicky. Normal visualized pulmonary arteries. Normal visualized aortic arch and descending thoracic aorta. Normal visualized thoracic spine. Normal visualized ribs, clavicles, and shoulders. There is no demonstrated abnormality of the visualized soft tissue structures of the upper abdomen. RAD/Chest 1 View (Portable) IMPRESSION: Prominent interstitial markings associated with a nonspecific opacity within the right lower lung, may be secondary to underlying edema and/or an infectious process. Electronically Signed: Dixie Blanc MD at 22:32 EDT Tel , Service support ,
--- NOTE | 2020-08-20 21:51 | CT_ITS ---
STUDY: CT BRAIN WITHOUT CONTRAST REASON FOR EXAM: Female, 65 years old. Confusion RADIATION DOSAGE (If Supplied By Facility): CTDIvol = ( 44.99 ) mGy, DLP = ( 897.35 ) mGycm TECHNIQUE: Transaxial CT imaging of the brain was performed without administration of intravenous contrast material. Individualized dose optimization techniques were used for this CT. COMPARISON: 08/30/2016 FINDINGS: Normal soft tissue structures. There is hyperostosis frontalis internus. There is mild cerebral atrophy with widening of the extra-axial spaces and ventricular dilatation. Normal white matter tracts of the cerebral hemispheres. Normal basal ganglia and thalami. Normal brainstem. Normal cerebellum. There is no intracranial hemorrhage. There are no findings of an acute ischemic infarction. There is mucoperiosteal inflammatory disease of the paranasal sinuses consistent with severe chronic sinusitis. CT/Brain/Head without Contrast IMPRESSION: Chronic involutional changes of the brain. Pansinusitis. Electronically Signed: Dixie Blanc MD at 22:53 EDT Tel , Service support ,
--- NOTE | 2020-08-20 21:52 | ED.DCSUM_ITS ---
History of Present Illness Chief Complaint: Confusion Informant: Patient, Family Narrative: 65-year-old female presenting with confusion. Her daughter found her at home at about 7 PM and she seemed to be a little disoriented. She did not have any facial droop, slurred speech, difficulty walking or inability his arms or legs. Daughter does relate she has a history of TIA. Is unclear whether patient took her home medications this morning. Patient's daughter states that she initially seemed to be improving but then was confused again. She denies any head injury. Patient wears 6 L of oxygen at baseline and had to use this. She states she recently started having to do BiPAP at home. She states she has a history of atrial fibrillation and is on Coumadin. Patient also has history of PEs. Patient is alert and oriented x3. She denies any pain. She states she did have some diarrhea this evening x3 before she came in but otherwise she feels fine. No headache, she does states she feels intermittently dizzy. She has not fallen. 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 (2) Anxiety Status: Chronic (3) Atrial fibrillation Status: Chronic (4) COPD (chronic obstructive pulmonary disease) Status: Chronic Past Medical History - Allergies and Home Meds Allergies/Adverse Reactions: Allergies nitroglycerin Adverse Reaction (Verified 08/20/20 20:42) Other PT UNABLE TO TAKE D/T SILFONAUREA Primary Care Physician: Jose Miguel Pedraza DO [Primary Care Provider] - Prior records reviewed: Yes Past Medical History: - - Lupus, pulmonary hypertension, COPD Surgical History: noncontributory Lives: Alone Smoking Status: Never smoker Alcohol: None Drugs: None Review of Systems General: Reports: - - Treatment confusion. Denies: Chills, Fever, Sweats Eyes: Denies: Visual changes - bilaterally, Diplopia ENT: Denies: Rhinorrhea, Sore throat Cardiovascular: Denies: Chest pain, Palpitations Respiratory: Denies: Dyspnea, Cough, Dyspnea on exertion Gastrointestinal: Denies: Abdominal pain, Nausea, Vomiting, Diarrhea, Melena, Hematochezia Genitourinary: Denies: Dysuria, Hematuria, Frequency Musculoskeletal: Denies: Back pain, Extremity Pain Skin: Denies: Rash, Wounds Neurological: Denies: Headache, Weakness, Numbness Psych: Denies: Depression, Anxiety, Suicidal thoughts, Suicidal ideations, -, - Physical Exam Vital Signs/Narrative: Vital Signs Temp Pulse Resp BP Pulse Ox 08/20/20 20:46 97.6 F L 96 18 172/75 H 98 08/20/20 20:42 97.6 F L 98 18 172/75 H 98 Inital Vital Signs reviewed: Yes General: Well nourished, No Acute Distress Head: Normocephalic, Atraumatic Eyes: Perrl, EOMI. Negative for: Pale conjunctiva ENT: Moist mucous membranes, No rhinorrhea Cardiovascular: Regular rate, Regular rhythm Respiratory: No distress, CTA bilaterally Abdomen: Soft, Nontender, Nondistended Extremities: Nontender, No edema Skin: Normal color, No rash. Negative for: Cyanosis, Diaphoresis Neurological: Alert, Oriented x3, Cranial nerves II-XII grossly intact Psychological: Normal affect, Normal Mood Diagnostic/Tx/Re-eval Clinical Impression(s) from Imaging Studies Chest X-Ray 08/20/20 21:50 IMPRESSION: Prominent interstitial markings associated with a nonspecific opacity within the right lower lung, may be secondary to underlying edema and/or an infectious process. Electronically Signed: Dixie Blanc MD at 22:32 EDT Tel , Service support , Brain CT 08/20/20 21:51 IMPRESSION: Chronic involutional changes of the brain. Pansinusitis. Electronically Signed: Dixie Blanc MD at 22:53 EDT Tel , Service support , Laboratory Data 08/20/20 08/20/20 08/20/20 21:10 21:10 21:10 WBC 10.5 RBC 5.84 H Hgb 9.6 L Hct 37.6 MCV 64.4 L MCH 16.4 L MCHC 25.5 L RDW Std Deviation 44.2 H RDW Coeff of Brittany 20.4 H Plt Count 265 MPV 9.8 Immature Gran % (Auto) 0.600 Neut % (Auto) 80.7 H Lymph % (Auto) 10.0 L [place] % (Auto) 6.8 Eos % (Auto) 1.6 Baso % (Auto) 0.3 Absolute Neuts (auto) 8.5 H Absolute Lymphs (auto) 1.05 Nucleated RBC % 0.2 Differential Comment SCANNED PT 20.9 H INR 1.9 APTT 36.0 Sodium 131 L Potassium 3.9 Chloride 98 Carbon Dioxide 26.0 Anion Gap 7 BUN 10 Creatinine 0.60 Estim Creat Clear Calc 47.79 Est GFR (MDRD) Af Amer 128 Est GFR (MDRD) Non-Af 106 BUN/Creatinine Ratio 16.7 Glucose 165 H Calcium 9.4 Urine Color Urine Clarity Urine pH Ur Specific [place] Urine Protein Urine Glucose (UA) Urine Ketones Urine Occult Blood Urine Nitrite Urine Bilirubin Urine Urobilinogen Ur Leukocyte Esterase Urine RBC Urine WBC Ur Squamous Epith Cells Urine Bacteria Urine Mucus POC Glucose 08/20/20 08/20/20 21:48 23:05 WBC RBC Hgb Hct MCV MCH MCHC RDW Std Deviation RDW Coeff of Brittany Plt Count MPV Immature Gran % (Auto) Neut % (Auto) Lymph % (Auto) [place] % (Auto) Eos % (Auto) Baso % (Auto) Absolute Neuts (auto) Absolute Lymphs (auto) Nucleated RBC % Differential Comment PT INR APTT Sodium Potassium Chloride Carbon Dioxide Anion Gap BUN Creatinine Estim Creat Clear Calc Est GFR (MDRD) Af Amer Est GFR (MDRD) Non-Af BUN/Creatinine Ratio Glucose Calcium Urine Color Yellow Urine Clarity Clear Urine pH 6.0 Ur Specific [place] 1.005 Urine Protein Negative Urine Glucose (UA) 1000 H Urine Ketones 5 H Urine Occult Blood Negative Urine Nitrite Negative Urine Bilirubin Negative Urine Urobilinogen Normal Ur Leukocyte Esterase Negative Urine RBC 0 SEEN Urine WBC 0 SEEN Ur Squamous Epith Cells 0 SEEN Urine Bacteria 0 SEEN Urine Mucus 0 SEEN POC Glucose 173 H - Medical Decision Making 65-year-old female presenting with her daughter who stated she was confused and sleeping more today. Patient is on her baseline oxygen. Her vital signs are s table and she is afebrile. She is alert and oriented x3. She has no focal neurologic deficits. Physical exam is otherwise benign. Lab work-up shows she has a hemoglobin of 9.6 otherwise her lab work-up is unremarkable. Last known hemoglobin was from February of last year and her hemoglobin was 11. This has not been rechecked that she knows of. Patient does admit to having some bleeding of her hemorrhoids occasionally. She does not have any melena. She does not have a epigastric pain. CT of her brain was negative. I have not found any abnormalities which would require admission. Patient's daughter states that she can stay with her or watch her more frequently. She will talk to her primary care doctor and have her follow-up for repeat hemoglobin checks. Impression: 1. Confusion 2. Anemia ED Disposition - Plan for ED Patient: Referrals: Jose Miguel Pedraza DO [Primary Care Provider] -
[2020-08-20 21:55] LABS: Bedside Glucose 173 mg/dL (70-110)
[2020-08-20 22:04] LABS: Differential Comment SCANNED
[2020-08-20 23:18] LABS: Bacteria 0 SEEN /hpf (None Seen); Mucous, Urine 0 SEEN /hpf (<or=2+); Red Blood Cells-Urine 0 SEEN /hpf (0-5); Squamous Epithelial Cells - UA 0 SEEN /hpf (5-10); White Blood Cells 0 SEEN /hpf (0-5)
[2020-08-20 23:26] LABS: Color, Urine Yellow (Yellow); Glucose, Dipstick 1000 mg/dl (Normal); Ketone-Dipstick 5 mg/dl (Negative); Leukocyte Esterase-Dipstick Negative /ul (Negative); Nitrite-Dipstick Negative (Negative); Occult Blood-Urine Negative /ul (Negative); Protein-Dipstick Negative (Negative); Specific Gravity, Urine 1.005 (1.002-1.030); Urine Bilirubin Dipstick Negative (Negative); Urine Clarity Clear (Clear); Urine Urobilinogen Normal (Normal)
--- NOTE | 2020-08-20 23:46 | ED.RN ---
DR. VIVAS CANCELLED [facility]
== END 2020-08-21 01:00 | disposition home or self-care (01) ==
PROVIDERS: Emergency Provider Student in an Organized Health Care Education/Training Program; PCP Family Medicine
DX: R41.0 Disorientation, unspecified (principal); D64.9 Anemia, unspecified; J44.9 Chronic obstructive pulmonary disease, unspecified; I27.20 Pulmonary hypertension, unspecified; M32.9 Systemic lupus erythematosus, unspecified; I48.91 Unspecified atrial fibrillation; F41.9 Anxiety disorder, unspecified; Z79.01 Long term (current) use of 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; Z86.711 Personal history of pulmonary embolism
CPT/HCPCS: 70450; 71045; 80048; 81001; 82962; 85025; 85610; 85730; 93005; 99284

== ENCOUNTER 2020-08-28 15:08 | Outpatient (RCR) | payer MEDICARE, SELFPAY ==
[2020-07-31 14:33] VITALS: BMI 39.9
[2020-08-28 14:44] VITALS: BMI 36.3
[2020-08-28 15:10] LABS: Mucous, Urine 0 SEEN /hpf (<or=2+); Red Blood Cells-Urine 0 SEEN /hpf (0-5); Squamous Epithelial Cells - UA 0 SEEN /hpf (5-10)
[2020-08-28 17:21] LABS: Color, Urine Yellow (Yellow); Glucose, Dipstick 1000 mg/dl (Normal); Ketone-Dipstick 15 mg/dl (Negative); Leukocyte Esterase-Dipstick 25 /ul (Negative); Nitrite-Dipstick Negative (Negative); Occult Blood-Urine Negative /ul (Negative); Protein-Dipstick Negative (Negative); Specific Gravity, Urine 1.015 (1.002-1.030); Urine Bilirubin Dipstick Negative (Negative); Urine Clarity Clear (Clear); Urine Urobilinogen Normal (Normal)
[2020-08-28 17:30] LABS: Prothrombin Time (Protime)PT. 22.1 SECONDS (11.7-14.9)
[2020-08-28 17:39] LABS: Bacteria 1+ /hpf (None Seen); White Blood Cells 0-5 SEEN /hpf (0-5)
[2020-08-28 17:40] LABS: Anion Gap 9 (5-15); BUN 7 mg/dL (7-18); BUN/Creat Ratio 10.5 RATIO (10-20); Calcium,Total 9.6 mg/dL (8.5-10.1); Chloride 100 mmol/L (98-107); Creatinine, Serum 0.66 mg/dL (0.55-1.02); EST Glomerular Filtration Rate 94 mL/min (>60); Est Glom Filt Rate - Afr Amer 114 mL/min (>60); Glucose 140 mg/dL (74-106); Potassium 3.8 mmol/L (3.5-5.1); Sodium Level 136 mmol/L (136-145)
== END 2020-09-07 23:59 ==
LOC: BIMLAB 15:08
PROVIDERS: Family Provider Family Medicine; PCP Family Medicine; Referring Provider Family Medicine; Visit Provider Family Medicine
DX: Z79.01 Long term (current) use of 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 (principal)
CPT/HCPCS: 36415; 80048; 81001; 85610

== ENCOUNTER → 2020-09-14 | Outpatient (CLI) | payer MEDICARE, SELFPAY ==
[2020-09-14 13:25] VITALS: BMI 36.3
[2020-09-14 14:14] LABS: Mucous, Urine 0 SEEN /hpf (<or=2+)
[2020-09-14 15:13] LABS: Color, Urine Yellow (Yellow); Glucose, Dipstick Normal (Normal); Ketone-Dipstick 5 mg/dl (Negative); Leukocyte Esterase-Dipstick 500 /ul (Negative); Nitrite-Dipstick Negative (Negative); Occult Blood-Urine 250 /ul (Negative); Protein-Dipstick 500 mg/dl (Negative); Urine Bilirubin Dipstick Negative (Negative); Urine Clarity Cloudy (Clear); Urine Urobilinogen Normal (Normal)
[2020-09-14 15:31] LABS: Red Blood Cells-Urine 25-50 SEEN /hpf (0-5); White Blood Cells >100 SEEN /hpf (0-5)
[2020-09-14 15:32] LABS: Bacteria RARE /hpf (None Seen); Squamous Epithelial Cells - UA 0-5 SEEN /hpf (5-10)
== END | disposition home or self-care (01) ==
LOC: LABSPEC 14:03
PROVIDERS: PCP Family Medicine; Referring Provider Physician Assistant; Visit Provider Physician Assistant
DX: N39.0 Urinary tract infection, site not specified (principal); R35.0 Frequency of micturition
CPT/HCPCS: 81001; 87086; 87088; 87186

== ENCOUNTER 2020-09-26 15:33 | Outpatient (RCR) | payer MEDICARE, SELFPAY ==
[2020-09-26 15:08] VITALS: BMI 36.3
[2020-09-26 16:47] LABS: International Normalized Ratio 2.4; Prothrombin Time (Protime)PT. 25.6 SECONDS (11.7-14.9)
== END 2020-10-08 23:59 ==
LOC: BIMLAB 15:33
PROVIDERS: Family Provider Family Medicine; PCP Family Medicine; Referring Provider Family Medicine; Visit Provider Family Medicine
DX: Z79.01 Long term (current) use of 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 (principal)
CPT/HCPCS: 36415; 85610

== ENCOUNTER → 2020-10-09 13:02 | Outpatient (CLI) | payer MEDICARE, SELFPAY ==
[2020-09-26 15:08] VITALS: BMI 36.3
[2020-10-09 13:04] LABS: Bacteria 0 SEEN /hpf (None Seen); Mucous, Urine 0 SEEN /hpf (<or=2+); Red Blood Cells-Urine 0 SEEN /hpf (0-5)
[2020-10-09 15:29] LABS: Color, Urine Yellow (Yellow); Glucose, Dipstick 50 mg/dl (Normal); Ketone-Dipstick Negative (Negative); Leukocyte Esterase-Dipstick 25 /ul (Negative); Nitrite-Dipstick Negative (Negative); Occult Blood-Urine Negative /ul (Negative); Protein-Dipstick Negative (Negative); Urine Bilirubin Dipstick Negative (Negative); Urine Clarity Clear (Clear); Urine Urobilinogen Normal (Normal)
[2020-10-09 15:55] LABS: Squamous Epithelial Cells - UA 0-5 SEEN /hpf (5-10); White Blood Cells 0-5 SEEN /hpf (0-5)
== END ==
PROVIDERS: PCP Family Medicine; Visit Provider Family Medicine
DX: N39.0 Urinary tract infection, site not specified (principal)
CPT/HCPCS: 81001

== ENCOUNTER 2020-10-31 15:09 | Outpatient (RCR) | payer MEDICARE, SELFPAY ==
[2020-10-31 14:39] VITALS: BMI 36.3
[2020-10-31 16:50] LABS: Absolute Lymphocyte Count 1.27 X10^3/uL (0.83-4.51); Absolute Neutrophil Count 6.5 X10^3/uL (2.0-7.7); Basophil# 0.03 X10^3/uL; Basophil% 0.3 % (0-1); Eosinophil# 0.29 X10^3/uL; Eosinophils% 3.3 % (0-5); Hematocrit 47.5 % (37-47); Lymphocyte # 1.27 X10^3/ul (0.83-4.51); Lymphocyte % 14.5 % (19-41); Mean Corp Hgb Conc 27.4 g/dL (32-36); Mean Corpuscular Volume 73.2 fL (81-99); Monocyte# 0.64 X10^3/uL; Monocyte% 7.3 % (0-10); NRBC Flagged by Analyzer 0 % (0-5); Neutrophil # 6.46 X10^3/uL (2.7-7.7); Neutrophil % 74.1 % (47-70); POSITIVE MORPHOLOGY YES; Platelet Count 251 K/mm3 (150-450); Red Blood Count 6.49 M/mm3 (4.2-5.4); White Blood Count 8.7 K/mm3 (4.4-11.0)
[2020-10-31 16:53] LABS: Differential Indicated SCAN CRITERIA MET
[2020-10-31 17:02] LABS: International Normalized Ratio 2.4; Prothrombin Time (Protime)PT. 25.4 SECONDS (11.7-14.9)
[2020-10-31 17:18] LABS: Differential Comment SCANNED; Platelet Morphology LARGE
[2020-10-31 17:19] LABS: Anisocytosis 3+; Hypochromasia 1+; Macrocytosis 1+; Microcytosis 2+
== END 2020-11-07 23:59 ==
LOC: BIMLAB 15:09
PROVIDERS: Nurse Practitioner Family; Family Provider Family Medicine; PCP Family Medicine; Referring Provider Family Medicine; Visit Provider Family Medicine
DX: Z79.01 Long term (current) use of 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 (principal)
CPT/HCPCS: 36415; 85025; 85610

== ENCOUNTER 2020-11-27 15:54 | Outpatient (RCR) | payer MEDICARE, SELFPAY ==
[2020-11-27 14:40] VITALS: BMI 33.6
--- NOTE | 2020-11-27 16:20 | RAD_ITS ---
STUDY: X-RAY - RIGHT WRIST REASON FOR EXAM: Female, 65 years old. Pain. TECHNIQUE: 3 view(s) of the wrist were obtained. COMPARISON: None. FINDINGS: No acute fracture, dislocation or osseous destruction. Osteopenia/osteoporosis. Advanced first carpometacarpal joint arthrosis. Advanced triscaphe joint arthrosis. Mild soft tissue swelling. RAD/Wrist min 3 Views IMPRESSION: Right wrist intact Advanced degenerative changes, as above Mild soft tissue swelling Electronically Signed: Tony Corrigan DO at 12:15 EDT Tel , Service support ,
[2020-11-27 17:20] LABS: International Normalized Ratio 3.5; Prothrombin Time (Protime)PT. 34.4 SECONDS (11.7-14.9)
== END 2020-11-27 18:00 | disposition home or self-care (01) ==
LOC: LAB 15:54
PROVIDERS: Family Provider Family Medicine; PCP Family Medicine; Referring Provider Family Medicine; Visit Provider Family Medicine
DX: M25.531 Pain in right wrist (principal); Z79.01 Long term (current) use of 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
CPT/HCPCS: 36415; 73110; 85610

== ENCOUNTER → 2020-12-24 16:23 | Outpatient (CLI) | payer MEDICARE, SELFPAY ==
[2020-12-18 16:10] VITALS: BMI 32.5
--- NOTE | 2020-12-24 16:28 | RAD_ITS ---
STUDY: X-RAY CHEST REASON FOR EXAM: Female, 65 years old. Productive cough. TECHNIQUE: Frontal and lateral views of the chest. COMPARISON: 08/20/2020. FINDINGS: Hyperexpansion with diffuse interstitial pattern and scattered healed granulomatous calcifications. There is no demonstrated pleural abnormality. Stable cardiomegaly. Normal mediastinum and vicky. Normal visualized pulmonary arteries. Normal visualized aortic arch and descending thoracic aorta. Normal visualized thoracic spine. Normal visualized ribs, clavicles, and shoulders. There is no demonstrated abnormality of the visualized soft tissue structures of the upper abdomen. RAD/Chest PA and Lateral IMPRESSION: Stable cardiomegaly, diffuse interstitial pattern and scattered healed granulomatous calcifications. No active or acute cardiopulmonary disease. Electronically Signed: Rajeev Araiza MD at 12:43 EDT , Service support ,
== END ==
PROVIDERS: PCP Family Medicine; Referring Provider Family Medicine; Visit Provider Family Medicine
DX: J41.0 Simple chronic bronchitis (principal)
CPT/HCPCS: 71046

== ENCOUNTER 2021-01-03 12:01 | Outpatient (RCR) | payer MEDICARE, SELFPAY ==
[2020-12-12 18:02] LABS: International Normalized Ratio 2.2; Prothrombin Time (Protime)PT. 23.8 SECONDS (11.7-14.9)
[2021-01-03 15:20] LABS: International Normalized Ratio 1.7; Prothrombin Time (Protime)PT. 19.5 SECONDS (11.7-14.9)
== END 2021-01-03 18:00 | disposition home or self-care (01) ==
LOC: MTLAB 12:01
PROVIDERS: Family Provider Family Medicine; PCP Family Medicine; Referring Provider Family Medicine; Visit Provider Family Medicine
DX: Z79.01 Long term (current) use of 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 (principal)
CPT/HCPCS: 36415; 85610

== ENCOUNTER 2021-02-01 16:18 | Outpatient (RCR) | payer MEDICARE, SELFPAY ==
[2021-01-09 01:15] VITALS: BMI 33.6
[2021-02-01 17:49] LABS: Prothrombin Time (Protime)PT. 22.3 SECONDS (11.7-14.9)
== END 2021-02-01 18:00 | disposition home or self-care (01) ==
LOC: MTLAB 16:18
PROVIDERS: Family Provider Family Medicine; PCP Family Medicine; Referring Provider Family Medicine; Visit Provider Family Medicine
DX: Z79.01 Long term (current) use of 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 (principal)
CPT/HCPCS: 36415; 85610

== ENCOUNTER 2021-03-01 10:20 | Outpatient (RCR) | payer MEDICARE, SELFPAY ==
[2021-02-08 01:53] VITALS: BMI 33.6
[2021-03-01 12:43] LABS: International Normalized Ratio 1.5; Prothrombin Time (Protime)PT. 17.3 SECONDS (11.7-14.9)
== END 2021-03-10 18:00 | disposition home or self-care (01) ==
LOC: MTLAB 10:20
PROVIDERS: Family Provider Family Medicine; PCP Family Medicine; Referring Provider Family Medicine; Visit Provider Family Medicine
DX: Z79.01 Long term (current) use of 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 (principal)
CPT/HCPCS: 36415; 85610

== ENCOUNTER 2021-03-27 15:57 | Outpatient (RCR) | payer MEDICARE, SELFPAY ==
[2021-03-10 20:33] VITALS: BMI 33.6
[2021-03-12 18:00] LABS: International Normalized Ratio 2.3; Prothrombin Time (Protime)PT. 24.3 SECONDS (11.7-14.9)
[2021-03-27 17:54] LABS: International Normalized Ratio 3.1
== END 2021-04-09 18:00 | disposition home or self-care (01) ==
LOC: MTLAB 15:57
PROVIDERS: Family Provider Family Medicine; PCP Family Medicine; Referring Provider Family Medicine; Visit Provider Family Medicine
DX: Z79.01 Long term (current) use of 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 (principal)
CPT/HCPCS: 36415; 85610

== ENCOUNTER 2021-04-01 20:01 | Emergency (ER) | payer MEDICARE, SELFPAY ==
[2021-04-01 20:02] VITALS: BP 154/63; PULSE 94; RESP 18; TEMP 36.6; O2SAT 97; BMI 32.5
[2021-04-01 20:41] VITALS: O2SAT 95
--- NOTE | 2021-04-01 20:41 | CPS ---
pt placed on 31% vm due to pt wears 5 l/m via mask at home
--- NOTE | 2021-04-01 20:50 | CT_ITS ---
STUDY: CT BRAIN WITHOUT CONTRAST REASON FOR EXAM: Female, 66 years old. Dizziness after injury. TECHNIQUE: Transaxial CT imaging of the brain was performed without administration of intravenous contrast material. Individualized dose optimization techniques were used for this CT. COMPARISON: 08/20/2020 CT brain. FINDINGS: No evidence of intracranial hemorrhage, mass, acute infarct, or hydrocephalus. Small chronic infarct lateral aspect left basal ganglia. Chronic microangiopathic changes in the white matter. Atherosclerosis of the intracranial arteries. No skull fracture or acute osseous abnormality. Calvarial hyperostosis similar to prior. Extensive paranasal sinus opacification particularly of the maxillary and sphenoid sinuses. The left sphenoid sinus is mildly expanded with bowing of the septum between the sinuses to the right. This is similar to prior. The mastoid air cells and middle ears are patent. Visualized extracranial soft tissues unremarkable. CT/Brain/Head without Contrast IMPRESSION: No evidence of intracranial injury or skull fracture. Extensive chronic sinusitis particularly of the sphenoid sinuses, similar to prior. Electronically Signed: Griffin Dooley MD at 22:39 EST Tel , Service support ,
--- NOTE | 2021-04-01 20:50 | EKG12_ITS ---
Test Reason : FALL Blood Pressure : / mmHG Vent. Rate : 089 BPM Atrial Rate : 089 BPM P-R Int : 230 ms QRS Dur : 090 ms QT Int : 342 ms P-R-T Axes : 053 -14 050 degrees QTc Int : 416 ms Sinus rhythm with 1st degree A-V block Septal infarct , age undetermined Inferior infarct , age undetermined Abnormal ECG Confirmed by JUAN WALLACE, BRYAN ([id number]), material expeditor LISETH CHI ([id number]) on 04/05/2021 7:23:13 AM Referred By: RIA Confirmed By:BRYAN MARTINEZ MD
--- NOTE | 2021-04-01 20:51 | ED.VIS.FALL ---
HPI HPI - Fall History of Present Illness Chief Complaint: Fall Informant: patient Narrative Narrative: Patient presents after dizziness and a fall. Patient has had episodes of dizziness for several years now. These get exacerbated at certain times. It is unclear what they are related to. She has also had TIAs. She has had some episodes where she has confusion but that is not going on with this. She states she has a sense of motion. She states things are not moving around her but they are moving inside her head. She describes it similar to the credits on a movie rolling by her. This caused her to fall yesterday. She did hit her head but feels she did not hurt herself and is not having a headache. She fell again today without injury. She really did not want to come in because she has had this is a chronic recurrent problem. But she felt she should come in because she needs a CAT scan of her head as she is on Coumadin. She is on Coumadin both for history of atrial fibrillation as well as these TIAs and lupus anticoagulation. She also has chronic pulmonary fibrosis from recurrent PEs. She is not having any chest or pulmonary symptoms now. No fevers or chills. She feels fine at this time. Motion does seem to make her dizziness worse. Nothing specifically makes it better. [facility] Medical History (Updated 04/01/21 @ 23:[address] Miguel Angel Boyd MD) Anxiety Atrial fibrillation Claustrophobia COPD (chronic obstructive pulmonary disease) Depression Lupus anticoagulant disorder Primary pulmonary hypertension (PPH) Pulmonary arterial hypertension TIA (transient ischemic attack) Type 2 diabetes mellitus Home Medications Oxygen, Home [Home Oxygen] 6 l NASAL CONT 04/21/16 [History Last Taken Unknown] ambrisentan 10 mg PO DAILY 04/21/16 [History Last Taken Unknown] albuterol sulfate 90 mcg/actuation aerosol inhaler 1 puff INHALATION Q6H PRN #8.5 gm 09/23/18 [Rx Last Taken Unknown] blood-glucose meter #1 each 09/30/18 [Rx Last Taken Unknown] lancets #100 ea 01/09/20 [Rx Last Taken Unknown] sildenafil 25 mg tablet 25 mg PO DAILY PRN 02/22/20 [History Last Taken Unknown] budesonide-formoterol HFA 160 mcg-4.5 mcg/actuation aerosol inhaler 2 puff INHALATION BID 90 Days #3 each 05/08/20 [Rx Last Taken Unknown] tolterodine 2 mg capsule,extended release 24 hr 2 mg PO DAILY #90 cap 08/27/20 [Rx Last Taken Unknown] furosemide 40 mg tablet 40 mg PO BID #180 tablet 09/04/20 [Rx Last Taken Unknown] diltiazem HCl 360 mg tablet,extended release 24 hr 360 mg PO DAILY #90 tab 09/06/20 [Rx Last Taken Unknown] omeprazole 40 mg capsule,delayed release 40 mg PO DAILY #90 cap 10/01/20 [Rx Last Taken Unknown] spironolactone 50 mg tablet 50 mg PO DAILY #90 tablet 10/01/20 [Rx Last Taken Unknown] potassium chloride 20 mEq tablet,extended release(part/cryst) See Rx Instructions .ROUTE .COMPLEX #270 tablet 11/22/20 [Rx Last Taken Unknown] blood sugar diagnostic #100 each 01/08/21 [Rx Last Taken Unknown] lancets 33 gauge #100 ea 01/08/21 [Rx Last Taken Unknown] pravastatin 40 mg tablet 40 mg PO QHS #90 tablet 01/29/21 [Rx Last Taken Unknown] olanzapine 5 mg tablet 5 mg PO DAILY #90 tab 03/06/21 [Rx Last Taken Unknown] desvenlafaxine succinate [Pristiq] 100 mg PO DAILY 04/01/21 [History Last Taken Unknown] meclizine 25 mg PO TID PRN #30 tab 04/01/21 [Rx Last Taken Unknown] tiotropium bromide [Spiriva with HandiHaler] 1 mcg INHALATION DAILY 04/01/21 [History Last Taken Unknown] warfarin 3 mg PO SUTUTHSA 04/01/21 [History Last Taken Unknown] warfarin 4 mg PO MOWEFR 04/01/21 [History Last Taken Unknown] Allergy/AdvReac Type Severity Reaction Status Date / Time nitroglycerin AdvReac Other Verified 01/29/21 16:37 Family History Mother COPD (chronic obstructive pulmonary disease) Cancer melanoma Father Heart disease Alcoholism Grandmother Cancer Grandfather Parkinsons disease Surgical History H/O colonoscopy H/O endoscopy history of bunion surgery History of cholecystectomy History of placement of ear tubes History of tonsillectomy Social History Smoking Status: Never smoker Tobacco: How many years used: 8 how long ago did patient quit smokin years alcohol intake: never substance use type: does not use what type of physical activity do you participate in: none ROS ROS ED Constitutional Constitutional ED: Denies chills or fever(s) Eyes Eyes: Denies blurry vision, change in vision or diplopia ENT ENT ED: Denies rhinorrhea Cardiovascular Cardiovascular: Denies chest pain or palpitations Respiratory/Chest Respiratory/Chest: Denies cough or dyspnea Gastrointestinal Gastrointestinal: Denies diarrhea, nausea or vomiting Genitourinary Genitourinary ED: Denies dysuria Musculoskeletal Musculoskeletal: Denies myalgias Integumentary Denies rash Neurologic Neurologic: Reports other Details: See history of present illness. ; Denies headache(s), paresthesias or weakness Endocrine Endocrinology: Denies polydipsia or polyuria Hematologic/Lymphatic Hematologic/Lymphatic: Reports easy bleeding and easy bruising Allergic/Immunologic Allergic/Immunologic ED: Denies mouth swelling or urticaria EXAM Physical Exam Const Vital Signs: 04/01/21 20:02 04/01/21 20:41 04/01/21 21:02 Temperature 97.8 F Temperature Source Temporal Pulse Rate 94 80 Respiratory Rate 18 Blood Pressure 154/63 H 134/65 H Blood Pressure Mean 93 88 Pulse Ox 97 95 93 Oxygen Delivery Method Nasal Cannula Venturi Mask Venturi Mask Oxygen Flow Rate (L/min) 5 6 Fraction of Inspired Oxygen (FIO2) 31 04/01/21 22:31 Temperature Temperature Source Pulse Rate 91 Respiratory Rate 16 Blood Pressure 144/58 H Blood Pressure Mean 86 Pulse Ox 97 Oxygen Delivery Method Venturi Mask Oxygen Flow Rate (L/min) 6 Fraction of Inspired Oxygen (FIO2) Positive well nourished and well developed General Appearance ED: well developed and NAD HEENT Reports normocephalic HEENT Narrative: No external sign of trauma. atraumatic Eyes General Eye ED: Negative for pale conjunctiva or scleral icterus Neck full ROM and supple Resp normal respiratory effort and clear to auscultation bilaterally Cardio regular rate and regular rhythm Cardio Narrative: Patient appears to be in a normal sinus rhythm listening to her at this time. GI non-tender and non-distended Auscultation: normoactive bowel sounds Palpation: soft Back/Spine no CVA tenderness Extremity normal to inspection, no calf tenderness and no pedal edema Neuro oriented x3 Neuro Narrative: Patient did have some mild symptoms with sitting up. She had a small amount of nystagmus that only lasted for a few seconds. She did not have to hold onto the bed. She did not get nauseated. This was a very mild episode but was induced by motion. Sensorium / Orientation: alert Psych mental status grossly normal Skin Rashes: no rashes MDM MDM MDM Narrative Medical decision making narrative: Patient's INR is a bit high at 3.6. She will hold her Coumadin level tomorrow and then restarted based on her physician's recommendations. She already has an appointment with her private physician tomorrow. Happily, her CT showed no sign of acute intracranial process. There were chronic changes. Electrolytes showed mild dehydration only. Sodium was just a little low at 128 but I do not think this requires admission. She was given some IV fluids. She feels the meclizine helped a little bit. Her symptoms are not completely resolved but they are better. However she does not want to stay in the hospital. She has battled the symptoms off and on for years. She has a follow-up appointment with her physician tomorrow. She is getting a walker tomorrow. She is going to stay at home. Her bathroom is 4 steps from her bed. She would prefer and is more comfortable going home. I think with the chronicity of her symptoms this is reasonable. She did go get up and go to the bathroom while here. She had some symptoms but actually did well. Lab Data Attestation: I reviewed the patient's lab results. Labs: Laboratory Results - last 24 hr 04/01/21 04/01/21 21:30 21:30 PT 35.4 H INR 3.6 Sodium 128 L Potassium 4.3 Chloride 96 L Carbon Dioxide 26.0 Anion Gap 6 BUN 21 H Creatinine 0.92 Estim Creat Clear Calc 51.24 Est GFR (MDRD) Af Amer 78 Est GFR (MDRD) Non-Af 64 BUN/Creatinine Ratio 22.7 H Glucose 190 H Calcium 9.5 Total Bilirubin 0.90 AST 28 ALT 22 Alkaline Phosphatase 104 Total Protein 6.5 Albumin 2.6 L Globulin 3.9 Albumin/Globulin Ratio 0.7 L Radiography Diagnostic Testing: Clinical Impression(s) from Imaging Studies Brain CT 04/01/21 20:50 IMPRESSION: No evidence of intracranial injury or skull fracture. Extensive chronic sinusitis particularly of the sphenoid sinuses, similar to prior. Electronically Signed: Griffin Dooley MD at 22:39 EST Tel , Service support , EKG Initial EKG: Comments: EKG done for mild dizziness and read by me shows normal sinus rhythm with slight first-degree AV block. No ventricular ectopy. No acute ST elevation or depression. Slightly slow R wave progression. MT interval is long. QRS duration and QTc normal. Discharge Plan Triage Chief Complaint: Fall Other Complaint: Dizziness ED Provider: Miguel Angel Boyd Dx/Rx/DC Orders Clinical Impression: Vertigo, Fall at home, Warfarin-induced coagulopathy Instructions: ED Dizziness, Uncertain Cause Prescriptions: New meclizine 25 mg tablet 25 mg PO TID PRN (Reason: dizziness) Qty: 30 RF: 0 No Action sildenafil 25 mg tablet 25 mg PO DAILY PRN (Reason: Sob &/Or Wheezing) RF: 0 pravastatin 40 mg tablet 40 mg PO QHS Qty: 90 RF: 3 ambrisentan 10 MG tablet 10 mg PO DAILY RF: 0 Oxygen, Home [Home Oxygen] 6 l NASAL CONT RF: 0 Spiriva with HandiHaler 18 mcg capsule, w/inhalation device 1 mcg INHALATION DAILY RF: 0 desvenlafaxine succinate [Pristiq] 100 mg Tablet Extended Release 24 Hr 100 mg PO DAILY RF: 0 warfarin 3 mg tablet 3 mg PO SUTUTHSA RF: 0 warfarin 1 mg tablet 4 mg PO MOWEFR RF: 0 albuterol sulfate 90 mcg/actuation HFA aerosol inhaler 1 puff INHALATION Q6H PRN (Reason: bronchospasm) Qty: 8.5 RF: 3 (DME) blood-glucose meter [[employer] Orth[employer]icsTouch Ultra2 Meter] kit See Dose Instructions .ROUTE .MEDSUPPLY Qty: 1 RF: 0 (DME) lancets [OneTouch UltraSoft Lancets] Misc See Rx Instructions .ROUTE .MEDSUPPLY Qty: 100 RF: 1 budesonide-formoterol [Symbicort] 160-4.5 mcg/actuation HFA aerosol inhaler 2 puff INHALATION BID 90 Days Qty: 3 RF: 6 tolterodine 2 mg capsule,extended release 24hr 2 mg PO DAILY Qty: 90 RF: 3 furosemide 40 mg tablet 40 mg PO BID Qty: 180 RF: 2 diltiazem HCl 360 mg tablet extended release 24 hr 360 mg PO DAILY Qty: 90 RF: 3 spironolactone 50 mg tablet 50 mg PO DAILY Qty: 90 RF: 3 omeprazole 40 mg capsule,delayed release(DR/EC) 40 mg PO DAILY Qty: 90 RF: 3 potassium chloride [Klor-Con M20] 20 mEq tablet,ER particles/crystals See Rx Instructions .ROUTE .COMPLEX Qty: 270 RF: 3 (DME) lancets [OneTouch Delica Plus Lancet] 33 gauge misc See Rx Instructions .ROUTE .MEDSUPPLY Qty: 100 RF: 2 (DME) OneTouch Ultra Blue Test Strip Strip See Rx Instructions .ROUTE .MEDSUPPLY Qty: 100 RF: 2 olanzapine 5 mg tablet 5 mg PO DAILY Qty: 90 RF: 1 Primary Care Provider: Jose Miguel Pedraza Referrals: Jose Miguel Pedraza, [Primary Care Provider] - 1 Day Disposition Disposition: Home, Self Care
[2021-04-01 21:02] VITALS: BP 134/65; PULSE 80; O2SAT 93
[2021-04-01] MEDS: Meclizine HCl 25 MG Tablet PO (21:25)
[2021-04-01 21:55] LABS: International Normalized Ratio 3.6; Prothrombin Time (Protime)PT. 35.4 SECONDS (11.7-14.9)
[2021-04-01 21:56] LABS: ALB/GLOB Ratio 0.7 RATIO (0.9-2.4); AST(SGOT) 28 U/L (15-37); Alanine Aminotransfer ALT/SGPT 22 U/L (13-56); Albumin, Serum 2.6 g/dL (3.2-5.0); Alkaline Phosphatase 104 U/L (45-117); Anion Gap 6 (5-15); BUN 21 mg/dL (7-18); BUN/Creat Ratio 22.7 RATIO (10-20); Calcium,Total 9.5 mg/dL (8.5-10.1); Chloride 96 mmol/L (98-107); Creatinine, Serum 0.92 mg/dL (0.55-1.02); EST Glomerular Filtration Rate 64 mL/min (>60); Est Glom Filt Rate - Afr Amer 78 mL/min (>60); Estimated Creatinine Clearance 51.24 ml/min; Globulin 3.9 g/dL (2.2-4.2); Glucose 190 mg/dL (74-106); Potassium 4.3 mmol/L (3.5-5.1); Protein, Total 6.5 g/dL (6.4-8.2); Sodium Level 128 mmol/L (136-145)
[2021-04-01 22:31] VITALS: BP 144/58; PULSE 91; RESP 16; O2SAT 97
== END 2021-04-01 23:38 | disposition home or self-care (01) ==
PROVIDERS: Emergency Provider Emergency Medicine; PCP Family Medicine
DX: R42 Dizziness and giddiness (principal); I48.91 Unspecified atrial fibrillation; J44.9 Chronic obstructive pulmonary disease, unspecified; J84.10 Pulmonary fibrosis, unspecified; F41.9 Anxiety disorder, unspecified; F32.A Depression, unspecified; E11.9 Type 2 diabetes mellitus without complications; M32.9 Systemic lupus erythematosus, unspecified; Z79.899 Other long term (current) drug therapy; Z79.01 Long term (current) use of 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; Z87.891 Personal history of nicotine dependence; F40.240 Claustrophobia; I27.0 Primary pulmonary hypertension; Z99.81 Dependence on supplemental oxygen
CPT/HCPCS: 70450; 80048; 80053; 85610; 93005; 99283

== ENCOUNTER 2021-04-06 19:18 | Inpatient (IN) | payer MEDICARE, SELFPAY ==
[2021-04-06 19:18] VITALS: BP 144/60; PULSE 84; RESP 16; TEMP 36.6; O2SAT 97; BMI 32.2
[2021-04-06 19:33] VITALS: BP 141/59; PULSE 85; RESP 16; O2SAT 97
--- NOTE | 2021-04-06 20:02 | EKG12_ITS ---
Test Reason : WEAKNESS Blood Pressure : / mmHG Vent. Rate : 082 BPM Atrial Rate : 082 BPM P-R Int : 222 ms QRS Dur : 080 ms QT Int : 360 ms P-R-T Axes : 043 -08 059 degrees QTc Int : 420 ms Sinus rhythm with 1st degree A-V block Inferior infarct , age undetermined Abnormal ECG Confirmed by JUAN WALLACE, BRYAN ([id number]), news video editor LISETH CHI ([id number]) on 04/09/2021 9:10:40 AM Referred By: BB Confirmed By:BRYAN MARTINEZ MD
--- NOTE | 2021-04-06 20:14 | EDS_ITS ---
HPI History of Present Illness Chief Complaint: Weakness Informant: patient and family Onset/Context/Timing Onset: Weeks (1) Context: Gradual Onset Timing: Continuous Quality: weak Location: all over Current Severity: Severe Maximum Severity: Severe Worsened by: nothing Relieved by: nothing Associated Symptoms Associated Symptoms: dizzy/dysequilibrium causing falls Narrative Narrative: Patient has been gradually declining throughout the year, due to generalized weakness, disequilibrium, multiple falls. This is been especially an issue this past week, she was seen here in the emergency department for this and prescribed meclizine for what sounded like some form of disequilibrium/vertigo, as the patient states she gets visual disturbances that make everything looks like it is moving or rolling, and this contributes to her disequilibrium and has been making her fall. It mainly is an issue when she is up and standing, walking, but she has had the symptoms when she is simply sitting there and looking around. She does not have abrupt triggers by getting out of bed, turning her head, changes in position, etc. She saw her PCP after this ED visit earlier in the week, family states he promptly removed her from the meclizine. She has not fallen since, however she is too weak to get up and around on her own, family is been with her 01/12, and taking her to and from the bathroom in a wheelchair, and she is not getting any better. Given that, she was advised to come to the hospital to get admitted for placement to short-term rehab and hopefully work on strength building and her equilibrium. [facility] Medical History (Updated 04/06/21 @ 23:[address] Gage Montes MD) Anxiety Atrial fibrillation Claustrophobia COPD (chronic obstructive pulmonary disease) Depression Lupus anticoagulant disorder Primary pulmonary hypertension (PPH) Pulmonary arterial hypertension TIA (transient ischemic attack) Type 2 diabetes mellitus Home Medications Oxygen, Home [Home Oxygen] 6 l NASAL CONT 04/21/16 [History Last Taken Unknown] ambrisentan 10 mg PO DAILY 04/21/16 [History Last Taken Unknown] albuterol sulfate 90 mcg/actuation aerosol inhaler 1 puff INHALATION Q6H PRN #8.5 gm 09/23/18 [Rx Last Taken Unknown] sildenafil 25 mg tablet 25 mg PO DAILY PRN 02/22/20 [History Last Taken Unknown] budesonide-formoterol HFA 160 mcg-4.5 mcg/actuation aerosol inhaler 2 puff INHALATION BID 90 Days #3 each 05/08/20 [Rx Last Taken Unknown] tolterodine 2 mg capsule,extended release 24 hr 2 mg PO DAILY #90 cap 08/27/20 [Rx Last Taken Unknown] furosemide 40 mg tablet 40 mg PO BID #180 tablet 09/04/20 [Rx Last Taken Unknown] omeprazole 40 mg capsule,delayed release 40 mg PO DAILY #90 cap 10/01/20 [Rx Last Taken Unknown] spironolactone 50 mg tablet 50 mg PO DAILY #90 tablet 10/01/20 [Rx Last Taken Unknown] potassium chloride 20 mEq tablet,extended release(part/cryst) See Rx Instructions .ROUTE .COMPLEX #270 tablet 11/22/20 [Rx Last Taken Unknown] pravastatin 40 mg tablet 40 mg PO QHS #90 tablet 01/29/21 [Rx Last Taken Unknown] olanzapine 5 mg tablet 5 mg PO DAILY #90 tab 03/06/21 [Rx Last Taken Unknown] tiotropium bromide [Spiriva with HandiHaler] 1 mcg INHALATION DAILY 04/01/21 [History Last Taken Unknown] warfarin 3 mg PO DAILY 04/01/21 [History Last Taken Unknown] Allergy/AdvReac Type Severity Reaction Status Date / Time nitroglycerin AdvReac Other Verified 04/06/21 19:21 Family History Mother COPD (chronic obstructive pulmonary disease) Cancer melanoma Father Heart disease Alcoholism Grandmother Cancer Grandfather Parkinsons disease Surgical History H/O colonoscopy H/O endoscopy history of bunion surgery History of cholecystectomy History of placement of ear tubes History of tonsillectomy Social History Smoking Status: Never smoker Tobacco: How many years used: 8 how long ago did patient quit smokin years alcohol intake: never substance use type: does not use what type of physical activity do you participate in: none ROS ROS ED Constitutional Constitutional ED: Reports weakness; Denies chills or fever(s) Eyes Eyes: Reports as per HPI and other Details: Visual disturbances mostly in right eye ; Denies change in vision or diplopia ENT ENT ED: Denies rhinorrhea or sore throat Cardiovascular Cardiovascular: Denies chest pain or palpitations Respiratory/Chest Respiratory/Chest: Denies cough or dyspnea Gastrointestinal Gastrointestinal: Denies abdominal pain, diarrhea, nausea or vomiting Genitourinary Genitourinary ED: Denies dysuria or hematuria Musculoskeletal Musculoskeletal: Denies back pain or neck pain Integumentary Denies abscess or rash Neurologic Neurologic: Reports as per HPI and dizziness; Denies headache(s), paresthesias or weakness Psychiatric Psychiatric: Denies anxiety or suicidal thoughts EXAM Physical Exam Const Vital Signs: 04/06/21 19:18 04/06/21 19:33 04/06/21 20:27 Temperature 97.8 F Temperature Source Temporal Pulse Rate 84 85 Respiratory Rate 16 16 Respiratory Effort Normal Respiratory Pattern Normal Blood Pressure 144/60 H 141/59 H Blood Pressure Mean 88 86 Pulse Ox 97 97 97 Oxygen Delivery Method Nasal Cannula Room Air Nasal Cannula Oxygen Flow Rate (L/min) 5 5 04/06/21 21:20 04/06/21 23:37 Temperature Temperature Source Pulse Rate 75 79 Respiratory Rate 16 20 H Respiratory Effort Respiratory Pattern Blood Pressure 140/64 H 126/58 H Blood Pressure Mean 89 80 Pulse Ox 98 99 Oxygen Delivery Method Room Air Nasal Cannula Oxygen Flow Rate (L/min) 5 Positive well nourished and well developed General Appearance ED: well developed and NAD HEENT Reports EAC's normal, TM's normal bilaterally and moist mucous membranes normocephalic and atraumatic Eyes PERRL and EOMs intact bilaterally EOM: Negative for nystagmus Neck full ROM and supple Resp normal respiratory effort and clear to auscultation bilaterally Cardio regular rate, regular rhythm and no murmurs GI non-tender and non-distended Auscultation: normoactive bowel sounds Palpation: soft Back/Spine no CVA tenderness General Back: other FROM Extremity normal to inspection General Extremety ED: Negative for edema, pulses abnormal or tenderness General Extremity: Negative for edema or pulses abnormal Neuro oriented x3, CN's II-XII intact bilaterally and no sensory deficits noted Neuro Narrative: Normal [id number] and [id number] bilaterally. Sensorium / Orientation: awake and alert Motor Exam: strength 5/5 throughout Skin no rashes or lesions noted and no wounds MDM MDM MDM Narrative Medical decision making narrative: Work-up shows a nonspecifically elevated lipase, her glucose is 203, and her urine is consistent with infection. This was sent for culture, she does not meet any criteria for sepsis so lactic acid and blood cultures were not felt necessary. However, her urinary infection may be contributing to her generalized weakness, and her disequilibrium certainly is contributing to her falls and functional decline. Plan is for treatment of the urinary tract infection and admission for further evaluation for short term rehab/care. Lab Data Attestation: I reviewed the patient's lab results. Labs: Laboratory Results - last 24 hr 04/06/21 04/06/21 04/06/21 19:52 19:52 21:03 WBC 7.7 RBC 4.93 Hgb 13.6 Hct 41.0 MCV 83.2 MCH 27.6 MCHC 33.2 RDW Std Deviation 43.1 RDW Coeff of Brittany 14.2 Plt Count 204 MPV 10.1 Immature Gran % (Auto) 1.800 H Neut % (Auto) 74.1 H Lymph % (Auto) 11.9 L [place] % (Auto) 9.3 Eos % (Auto) 2.5 Baso % (Auto) 0.4 Absolute Neuts (auto) 5.7 Absolute Lymphs (auto) 0.91 Nucleated RBC % 0 Differential Comment SCANNED Atypical Lymphocytes RARE Sodium 134 L Potassium 4.0 Chloride 99 Carbon Dioxide 27.0 Anion Gap 8 BUN 12 Creatinine 0.79 Estim Creat Clear Calc 47.14 Est GFR (MDRD) Af Amer 94 Est GFR (MDRD) Non-Af 78 BUN/Creatinine Ratio 15.3 Glucose 203 H Calcium 9.1 Total Bilirubin 0.40 AST 12 L ALT 20 Alkaline Phosphatase 103 Troponin I High Sens 4 Total Protein 6.4 Albumin 2.4 L Globulin 4.0 Albumin/Globulin Ratio 0.6 L Lipase 401 H Urine Color Yellow Urine Clarity Cloudy Urine pH 6.0 Ur Specific [place] 1.015 Urine Protein 30 H Urine Glucose (UA) Normal Urine Ketones Negative Urine Occult Blood 250 H Urine Nitrite Negative Urine Bilirubin Negative Urine Urobilinogen Normal Ur Leukocyte Esterase 500 H Urine RBC 50-100 SEEN Urine WBC 50-100 SEEN Ur Squamous Epith Cells 0-5 SEEN Urine Bacteria 1+ Hyaline Casts 0-5 SEEN Urine Mucus 0 SEEN EKG Initial EKG: Attestation: I personally reviewed and interpreted this EKG as follows: Interpretation: Sinus Rhythm, No Acute Injury Pattern and AV Block (1st deg) Discharge Plan Dx/Rx/DC Orders Clinical Impression: Declining functional status, Urinary tract infection, Weakness generalized, Dysequilibrium, Frequent falls Disposition Disposition: Acute Care Hospital [facility] [place]
[2021-04-06 20:18] LABS: Absolute Lymphocyte Count 0.91 X10^3/uL (0.83-4.51); Absolute Neutrophil Count 5.7 X10^3/uL (2.0-7.7); Basophil# 0.03 X10^3/uL; Basophil% 0.4 % (0-1); Eosinophil# 0.19 X10^3/uL; Eosinophils% 2.5 % (0-5); Hemoglobin 13.6 g/dL (12.0-15.0); Lymphocyte # 0.91 X10^3/ul (0.83-4.51); Lymphocyte % 11.9 % (19-41); Mean Corp Hgb Conc 33.2 g/dL (32-36); Mean Corpuscular Hgb 27.6 pg (27.0-32.0); Mean Corpuscular Volume 83.2 fL (81-99); Mean Platelet Vol. 10.1 fl (6.2-12.0); Monocyte# 0.71 X10^3/uL; Monocyte% 9.3 % (0-10); NRBC Flagged by Analyzer 0 % (0-5); Neutrophil # 5.69 X10^3/uL (2.7-7.7); Neutrophil % 74.1 % (47-70); POSITIVE MORPHOLOGY YES; Platelet Count 204 K/mm3 (150-450); RBC Distribution Width CV 14.2 % (11.6-14.6); RBC Distribution Width SD 43.1 fl (35.1-43.9); Red Blood Count 4.93 M/mm3 (4.2-5.4); White Blood Count 7.7 K/mm3 (4.4-11.0)
[2021-04-06 20:22] LABS: Differential Indicated SCAN CRITERIA MET
[2021-04-06 20:24] LABS: ALB/GLOB Ratio 0.6 RATIO (0.9-2.4); AST(SGOT) 12 U/L (15-37); Alanine Aminotransfer ALT/SGPT 20 U/L (13-56); Albumin, Serum 2.4 g/dL (3.2-5.0); Alkaline Phosphatase 103 U/L (45-117); Anion Gap 8 (5-15); BUN 12 mg/dL (7-18); BUN/Creat Ratio 15.3 RATIO (10-20); Calcium,Total 9.1 mg/dL (8.5-10.1); Chloride 99 mmol/L (98-107); Creatinine, Serum 0.79 mg/dL (0.55-1.02); EST Glomerular Filtration Rate 78 mL/min (>60); Est Glom Filt Rate - Afr Amer 94 mL/min (>60); Estimated Creatinine Clearance 47.14 ml/min; Glucose 203 mg/dL (74-106); Lipase 401 U/L (73-393); Protein, Total 6.4 g/dL (6.4-8.2); Sodium Level 134 mmol/L (136-145); Troponin-I HS 4 pg/mL (3.0-54.0)
--- NOTE | 2021-04-06 20:25 | RAD_ITS ---
STUDY: X-RAY CHEST REASON FOR EXAM: Female, 66 years old. weakness TECHNIQUE: PA and lateral views of the chest. COMPARISON: December 24, 2020. August 20, 2020. FINDINGS: No focal infiltrates or effusions. No pneumothorax. Again noted is interstitial density in the right lung base unchanged probably representing right middle lobe subsegmental atelectasis or fibrosis. Normal size heart. Normal mediastinum and vicky. Normal visualized pulmonary arteries. Normal visualized aortic arch and descending thoracic aorta. Normal visualized thoracic spine. Normal visualized ribs, clavicles, and shoulders. There is no demonstrated abnormality of the visualized soft tissue structures of the upper abdomen. RAD/Chest PA and Lateral IMPRESSION: Stable chest since August 2020. Probable right middle lobe subsegmental atelectasis or fibrosis. If the patient has symptoms suggestive of right-sided pneumonia correlate with CT chest. Electronically Signed: Nikos Beasley MD at 0:47 EST , Service support ,
[2021-04-06] MEDS: 0.9% Normal Saline 1,000 ML 80 ML IV (20:26)
[2021-04-06 20:27] VITALS: O2SAT 97
[2021-04-06 20:55] LABS: Atypical Lymphocyte RARE %; Differential Comment SCANNED
[2021-04-06 21:11] LABS: Mucous, Urine 0 SEEN /hpf (<or=2+)
[2021-04-06 21:12] LABS: Color, Urine Yellow (Yellow); Glucose, Dipstick Normal (Normal); Ketone-Dipstick Negative (Negative); Leukocyte Esterase-Dipstick 500 /ul (Negative); Nitrite-Dipstick Negative (Negative); Occult Blood-Urine 250 /ul (Negative); Protein-Dipstick 30 mg/dl (Negative); Specific Gravity, Urine 1.015 (1.002-1.030); Urine Bilirubin Dipstick Negative (Negative); Urine Clarity Cloudy (Clear); Urine Urobilinogen Normal (Normal)
[2021-04-06 21:20] VITALS: BP 140/64; PULSE 75; RESP 16; O2SAT 98
[2021-04-06 21:20] LABS: Squamous Epithelial Cells - UA 0-5 SEEN /hpf (5-10)
[2021-04-06 21:23] LABS: Bacteria 1+ /hpf (None Seen); Hyaline Cast 0-5 SEEN /lpf (0-5)
[2021-04-06 21:24] LABS: Red Blood Cells-Urine 50-100 SEEN /hpf (0-5); White Blood Cells 50-100 SEEN /hpf (0-5)
[2021-04-06] MEDS: Ceftriaxone 1 GM/50 ML BAG IV (22:06)
[2021-04-06 23:37] VITALS: BP 126/58; PULSE 79; RESP 20; O2SAT 99
[2021-04-07] VITALS (12 sets, daily range): BP systolic 121–154; BP diastolic 50–60; PULSE 70–84; RESP 14–20; TEMP 36.7–37.3; O2SAT 94–99; BMI 31.6
--- NOTE | 2021-04-07 00:20 | HP.PCM.HOS_ITS ---
HPI - General General Date of Admission: 04/07/21 HPI Narrative AGUSTINA LUGO, is a 66 F Lupus anticoagulant disorder; pulmonary hypertension; COPD and home oxygen use who presents to the emergency department with inability to care of herself. Her symptom has been going on for a long time but in the past 6 weeks it has worsened. Family has been there all the time and family at this point is unable to take care of patient. In the past week patient has had about two falls. At least with one fall she laid on the floor for a long time. Also patient complains of dizziness. She described the dizziness as dizziness in her head. She does not elaborate further. Also she reports blurry vision for which reason she has an appointment with an sharepoint manager. Further, patient reports increase in urination. Of note patient has frequent urination because he is on diuretics. However about 2 to 3 weeks patient has noted increase in her urination. Reportedly she was attributing the increased urination to Spiriva that she recently started. She reports dysuria and burning with urination. Patient PCP advised patient and family to come to the emergency department for possible placement. [facility] Medical History Anxiety Atrial fibrillation Claustrophobia COPD (chronic obstructive pulmonary disease) Depression Former smoker Lupus anticoagulant disorder Osteoporosis Primary pulmonary hypertension (PPH) Pulmonary arterial hypertension Pulmonary embolism TIA (transient ischemic attack) Type 2 diabetes mellitus Home Medications Oxygen, Home [Home Oxygen] 6 l NASAL CONT 04/21/16 [History Last Taken Unknown] ambrisentan 10 mg PO DAILY 04/21/16 [History Last Taken Unknown] albuterol sulfate 90 mcg/actuation aerosol inhaler 1 puff INHALATION Q6H PRN #8.5 gm 09/23/18 [Rx Last Taken Unknown] sildenafil 25 mg tablet 25 mg PO DAILY PRN 02/22/20 [History Last Taken Unknown] budesonide-formoterol HFA 160 mcg-4.5 mcg/actuation aerosol inhaler 2 puff INHALATION BID 90 Days #3 each 05/08/20 [Rx Last Taken Unknown] tolterodine 2 mg capsule,extended release 24 hr 2 mg PO DAILY #90 cap 08/27/20 [Rx Last Taken Unknown] furosemide 40 mg tablet 40 mg PO BID #180 tablet 09/04/20 [Rx Last Taken Unknown] omeprazole 40 mg capsule,delayed release 40 mg PO DAILY #90 cap 10/01/20 [Rx Last Taken Unknown] spironolactone 50 mg tablet 50 mg PO DAILY #90 tablet 10/01/20 [Rx Last Taken Unknown] potassium chloride 20 mEq tablet,extended release(part/cryst) See Rx Instructions .ROUTE .COMPLEX #270 tablet 11/22/20 [Rx Last Taken Unknown] pravastatin 40 mg tablet 40 mg PO QHS #90 tablet 01/29/21 [Rx Last Taken Unknown] olanzapine 5 mg tablet 5 mg PO DAILY #90 tab 03/06/21 [Rx Last Taken Unknown] tiotropium bromide [Spiriva with HandiHaler] 1 mcg INHALATION DAILY 04/01/21 [History Last Taken Unknown] warfarin 3 mg PO DAILY 04/01/21 [History Last Taken Unknown] alprazolam 0.5 mg PO BID PRN 04/07/21 [History Last Taken Unknown] diltiazem HCl [Matzim LA] 360 mg PO DAILY 04/07/21 [History Last Taken Unknown] ferrous sulfate 325 mg PO DAILY 04/07/21 [History Last Taken Unknown] Allergy/AdvReac Type Severity Reaction Status Date / Time nitroglycerin AdvReac Other Verified 04/06/21 19:21 Family History Mother COPD (chronic obstructive pulmonary disease) Cancer melanoma Father Heart disease Alcoholism Grandmother Cancer Grandfather Parkinsons disease Surgical History H/O colonoscopy H/O endoscopy history of bunion surgery History of cholecystectomy History of embolic filter insertion History of placement of ear tubes History of tonsillectomy Social History Smoking Status: Former smoker Tobacco: How many years used: 8 how long ago did patient quit smokin years alcohol intake: never substance use type: does not use what type of physical activity do you participate in: none ROS ROS Narrative Constitutional: Reports anorexia. Denies fever, chills, fatigue, and change in weight Eyes: Reports blurry vision change in eye color, discharge from eye(s), double vision, erythema, eye pain,or other HEENT: Denies abnormal hearing, dysphagia, ear pain, epistaxis, headache(s), hearing loss, nasal congestion, nasal discharge, post nasal drip, sinus pressure, sore throat or other Cardiovascular: Denies chest pain or palpitations. Denies dyspnea on exertion, orthopnea and paroxysmal nocturnal dyspnea Respiratory/Chest: Denies cough, excessive phlegm production, shortness of breath with exertion and wheezing Gastrointestinal: Denies abdominal pain, coffee ground emesis, constipation, diarrhea, dyspepsia, hematemesis, hematochezia, loose stools, melena, nausea, vomiting or other Genitourinary: Reports frequent urination, burning urination, and dysuria. Musculoskeletal: Denies arthralgias, back pain, joint pain, joint stiffness, joint swelling, myalgias, neck pain or other Neurologic: Reports dizziness. Denies abnormal gait, abnormal speech, confusion, focal weakness, headache(s), numbness, paresthesias, seizure-like activity, seizures, syncope, tingling, tremor(s) or other Psychiatric: Denies homicidal ideation, suicidal ideation or other Endocrinology: Denies change in body appearance, cold intolerance, excessive sweating, heat intolerance, polydipsia, polyuria or other Hematologic/Lymphatic: Denies anemia, easy bleeding, easy bruising, lymphadenopathy or other Integumentary: Denies rashes Allergic/Immunologic: Denies rhinitis, hives, eczema, asthma or other Vital Signs Vital Signs Vital Signs: 04/06/21 19:18 04/06/21 19:33 04/06/21 20:27 Temperature 97.8 F Temperature Source Temporal Pulse Rate 84 85 Respiratory Rate 16 16 Respiratory Effort Normal Respiratory Pattern Normal Blood Pressure 144/60 H 141/59 H Blood Pressure Mean 88 86 Pulse Ox 97 97 97 Oxygen Delivery Method Nasal Cannula Room Air Nasal Cannula Oxygen Flow Rate (L/min) 5 5 04/06/21 21:20 04/06/21 23:37 Temperature Temperature Source Pulse Rate 75 79 Respiratory Rate 16 20 H Respiratory Effort Respiratory Pattern Blood Pressure 140/64 H 126/58 H Blood Pressure Mean 89 80 Pulse Ox 98 99 Oxygen Delivery Method Room Air Nasal Cannula Oxygen Flow Rate (L/min) 5 Weight Weight: 85.275 kg Body Mass Index (BMI) 32.2 Physical Exam Narrative Physical exam: General: Well-nourished, well-developed. Head: Normocephalic, atraumatic, no tenderness Eyes: PERRLA, EOMI ENT, no trauma, moist mucous membranes, no rhinorrhea Neck: Nontender, full range of motion, no spinal tenderness, deformities, step- off CVS: Regular rate and rhythm. S1-S2 present. No murmur, gallop or rub. Respiratory : clear to auscultation bilaterally, chest wall nontender, no whe ezing Abdomen: Soft, nontender, nondistended, normal bowel sounds, no masses : Deferred Back: Nontender, no CVA tenderness, no midline spinal tenderness, deformities, step-offs Extremities: Nontender full range of motion, no trauma Skin: Normal color, no trauma, abrasions Neuro: Alert, oriented, cranial nerves II through XII grossly intact. Psychiatry: Looks depressed. Not anxious. Results Lab / Micro Data Result Diagrams: 04/06/21 19:52 04/06/21 19:52 Labs: Laboratory Results - last 24 hr 04/06/21 19:52: WBC 7.7, RBC 4.93, Hgb 13.6, Hct 41.0, MCV 83.2, MCH 27.6, MCHC 33.2, RDW Std Deviation 43.1, RDW Coeff of Brittany 14.2, Plt Count 204, MPV 10.1, Immature Gran % (Auto) 1.800 H, Neut % (Auto) 74.1 H, Lymph % (Auto) 11.9 L, [place] % (Auto) 9.3, Eos % (Auto) 2.5, Baso % (Auto) 0.4, Absolute Neuts (auto) 5.7, Absolute Lymphs (auto) 0.91, Nucleated RBC % 0, Differential Comment SCANNED, Atypical Lymphocytes RARE 04/06/21 19:52: Sodium 134 L, Potassium 4.0, Chloride 99, Carbon Dioxide 27.0, Anion Gap 8, BUN 12, Creatinine 0.79, Estim Creat Clear Calc 47.14, Est GFR (MDRD) Af Amer 94, Est GFR (MDRD) Non-Af 78, BUN/Creatinine Ratio 15.3, Glucose 203 H, Calcium 9.1, Total Bilirubin 0.40, AST 12 L, ALT 20, Alkaline Phosphatase 103, Troponin I High Sens 4, Total Protein 6.4, Albumin 2.4 L, Globulin 4.0, Albumin/Globulin Ratio 0.6 L, Lipase 401 H 04/06/21 21:03: Urine Color Yellow, Urine Clarity Cloudy, Urine pH 6.0, Ur Specific [place] 1.015, Urine Protein 30 H, Urine Glucose (UA) Normal, Urine Ketones Negative, Urine Occult Blood 250 H, Urine Nitrite Negative, Urine Bilirubin Negative, Urine Urobilinogen Normal, Ur Leukocyte Esterase 500 H, Urine RBC 50-100 SEEN, Urine WBC 50-100 SEEN, Ur Squamous Epith Cells 0-5 SEEN, Urine Bacteria 1+, Hyaline Casts 0-5 SEEN, Urine Mucus 0 SEEN Micro: Microbiology 04/06/21 20:26 Nasal Secretion SARS-CoV-2 Antigen (Rapid) - Final Assessment & Plan Assessment/Plan (1) Urinary tract infection: QUALIFIERS: Hematuria presence: without hematuria Urinary tract infection type: site unspecified Qualified Code(s): N39.0 - Urinary tract infection, site not specified (2) Debility: (3) Frequent falls: (4) Weakness generalized: PLAN: UTI Review of CBC showed normal white count but with bandemia, neutrophilia and lymphopenia. Trend CBC Urinalysis of the emergency department showed urine occult blood; proteinuria; elevated leukocyte esterase; and pyuria. Squamous cell was 0-5. Urine nitrite was negative. Follow urine culture ordered at the emergency department. Review of old records shows that urine culture ordered on 09/14/2020 grew E. coli that was resistant to ceftriaxone. But sensitive to cefepime and fluoroquinolones as well as imipenem. ESBL was negative. Started on Rocephin at the emergency department. Will change antibiotics to cefepime. Debility/frequent falls/generalized weakness PT OT to work with patient and make recommendations. Case management consult. Hypokalemia Review of emergency department labs showed sodium of 134. Trend BMP. Pulmonary hypertension Sildenafil citrate as needed continued. Blood coagulation disorder Patient is on home Coumadin. INR was ordered. INR is supratherapeutic. Hold Coumadin. Trend PT/INR. COPD Stable Home inhalers continued CKD stage IIIa Stable DVT prophylaxis: INR supratherapeutic. Home Coumadin held. Charges/Coding Visit Charges Inpatient E&M: 90075 Init Hosp L3
[2021-04-07 02:18] LABS: Prothrombin Time (Protime)PT. 43.3 SECONDS (11.7-14.9)
[2021-04-07 02:21] LABS: International Normalized Ratio 4.7
[2021-04-07] MEDS: Budesonide Respules 0.5 MG/2 ML AMPUL.NEB. INHALATION ×2 (07:28→20:06)
[2021-04-07] MEDS: Ipratropium/Albuterol Sulfate 3 ML AMPUL.NEB INHALATION ×3 (07:28→20:05)
[2021-04-07 09:25] LABS: Absolute Lymphocyte Count 0.82 X10^3/uL (0.83-4.51); Absolute Neutrophil Count 4.4 X10^3/uL (2.0-7.7); Basophil# 0.02 X10^3/uL; Basophil% 0.3 % (0-1); Eosinophil# 0.18 X10^3/uL; Hematocrit 40.8 % (37-47); Hemoglobin 13.3 g/dL (12.0-15.0); Lymphocyte # 0.82 X10^3/ul (0.83-4.51); Lymphocyte % 13.6 % (19-41); Mean Corp Hgb Conc 32.6 g/dL (32-36); Mean Corpuscular Hgb 27.7 pg (27.0-32.0); Mean Corpuscular Volume 84.8 fL (81-99); Mean Platelet Vol. 9.8 fl (6.2-12.0); Monocyte% 8.3 % (0-10); NRBC Flagged by Analyzer 0 % (0-5); Neutrophil # 4.43 X10^3/uL (2.7-7.7); Neutrophil % 73.6 % (47-70); Platelet Count 213 K/mm3 (150-450); RBC Distribution Width CV 14.2 % (11.6-14.6); Red Blood Count 4.81 M/mm3 (4.2-5.4)
[2021-04-07 09:34] LABS: International Normalized Ratio 3.9; Prothrombin Time (Protime)PT. 37.5 SECONDS (11.7-14.9)
[2021-04-07] MEDS: Potassium Chloride Oral Tablet 20 MEQ PO ×3 (09:40→17:25)
[2021-04-07] MEDS: Spironolactone 50 MG Tablet PO (09:41)
[2021-04-07] MEDS: dilTIAZem CD 180 MG Capsule 360 MG PO (09:42)
[2021-04-07] MEDS: Furosemide 40 MG Tablet PO ×2 (09:43→17:25)
[2021-04-07] MEDS: SILDENAFIL CITRATE 20 MG TABLET 60 MG PO ×3 (09:44→21:54)
[2021-04-07] MEDS: OLANZapine 5 MG/TAB TAB.RAPDIS PO (09:45)
[2021-04-07] MEDS: Pantoprazole Sodium 40 MG Tablet PO (09:45)
[2021-04-07] MEDS: Tolterodine Tartrate 2 MG CAP.SA PO (09:46)
[2021-04-07] MEDS: 0.9% Saline Lock 10 ML Syringe IV ×2 (09:46→21:55)
[2021-04-07] MEDS: Ferrous Sulfate 325 MG Tablet PO (09:46)
[2021-04-07 09:54] LABS: ALB/GLOB Ratio 0.6 RATIO (0.9-2.4); AST(SGOT) 15 U/L (15-37); Alanine Aminotransfer ALT/SGPT 19 U/L (13-56); Albumin, Serum 2.3 g/dL (3.2-5.0); Alkaline Phosphatase 103 U/L (45-117); Anion Gap 5 (5-15); BUN 7 mg/dL (7-18); BUN/Creat Ratio 10.7 RATIO (10-20); Calcium,Total 9.3 mg/dL (8.5-10.1); Chloride 105 mmol/L (98-107); Creatinine, Serum 0.66 mg/dL (0.55-1.02); EST Glomerular Filtration Rate 96 mL/min (>60); Est Glom Filt Rate - Afr Amer 116 mL/min (>60); Estimated Creatinine Clearance 47.14 ml/min; Globulin 3.9 g/dL (2.2-4.2); Glucose 174 mg/dL (74-106); Protein, Total 6.2 g/dL (6.4-8.2); Sodium Level 136 mmol/L (136-145)
--- NOTE | 2021-04-07 11:17 | PN.HOSP_ITS ---
Documented by User: Dano CHRISTIANSON 04/07/21 11:32 Subjective Subjective Patient is a 66-year-old female comfortably resting in a chair, alert and orient x3. Patient reports ongoing bladder pain with palpation that she reports is stable, denies development of any new symptoms overnight. Does not appear in acute distress. Objective Data Objective Data Vital Signs: Vital Signs Temp Pulse Resp BP Pulse Ox 99.1 F 70 18 129/60 H 94 04/07/21 08:45 04/07/21 08:45 04/07/21 08:45 04/07/21 08:45 04/07/21 08:45 Oxygen Flow Rate (L/min) 4 Oxygen Delivery Method Nasal Cannula Weight: 185 lb 6.54 oz Body Mass Index (BMI) 31.6 Intake & Output: Intake and Output for Last 24 Hours 04/05/21 04/06/21 04/07/21 23:59 23:59 23:59 Intake Total 50 / 50 450.67 / 450.67 Balance 50 / 50 450.67 / 450.67 Lab / Micro Data Result Diagrams: 04/07/21 09:11 04/07/21 09:11 Labs: Laboratory Results - last 24 hr 04/06/21 19:52: WBC 7.7, RBC 4.93, Hgb 13.6, Hct 41.0, MCV 83.2, MCH 27.6, MCHC 33.2, RDW Std Deviation 43.1, RDW Coeff of Brittany 14.2, Plt Count 204, MPV 10.1, Immature Gran % (Auto) 1.800 H, Neut % (Auto) 74.1 H, Lymph % (Auto) 11.9 L, [place] % (Auto) 9.3, Eos % (Auto) 2.5, Baso % (Auto) 0.4, Absolute Neuts (auto) 5.7, Absolute Lymphs (auto) 0.91, Nucleated RBC % 0, Differential Comment SCANNED, Atypical Lymphocytes RARE 04/06/21 19:52: Sodium 134 L, Potassium 4.0, Chloride 99, Carbon Dioxide 27.0, Anion Gap 8, BUN 12, Creatinine 0.79, Estim Creat Clear Calc 47.14, Est GFR (MDRD) Af Amer 94, Est GFR (MDRD) Non-Af 78, BUN/Creatinine Ratio 15.3, Glucose 203 H, Calcium 9.1, Total Bilirubin 0.40, AST 12 L, ALT 20, Alkaline Phosphatase 103, Troponin I High Sens 4, Total Protein 6.4, Albumin 2.4 L, Globulin 4.0, Albumin/Globulin Ratio 0.6 L, Lipase 401 H 04/06/21 21:03: Urine Color Yellow, Urine Clarity Cloudy, Urine pH 6.0, Ur Specific [place] 1.015, Urine Protein 30 H, Urine Glucose (UA) Normal, Urine Ketones Negative, Urine Occult Blood 250 H, Urine Nitrite Negative, Urine Bilirubin Negative, Urine Urobilinogen Normal, Ur Leukocyte Esterase 500 H, Urine RBC 50-100 SEEN, Urine WBC 50-100 SEEN, Ur Squamous Epith Cells 0-5 SEEN, Urine Bacteria 1+, Hyaline Casts 0-5 SEEN, Urine Mucus 0 SEEN 04/06/21 23:45: PT 43.3 H, INR 4.7 H* 04/07/21 09:11: WBC 6.0, RBC 4.81, Hgb 13.3, Hct 40.8, MCV 84.8, MCH 27.7, MCHC 32.6, RDW Std Deviation 44.0 H, RDW Coeff of Brittany 14.2, Plt Count 213, MPV 9.8, Immature Gran % (Auto) 1.200 H, Neut % (Auto) 73.6 H, Lymph % (Auto) 13.6 L, [place] % (Auto) 8.3, Eos % (Auto) 3.0, Baso % (Auto) 0.3, Absolute Neuts (auto) 4.4, Absolute Lymphs (auto) 0.82 L, Nucleated RBC % 0 04/07/21 09:11: PT 37.5 H, INR 3.9 04/07/21 09:11: Sodium 136, Potassium 4.0, Chloride 105, Carbon Dioxide 26.0, Anion Gap 5, BUN 7, Creatinine 0.66, Estim Creat Clear Calc 47.14, Est GFR (MDRD ) Af Amer 116, Est GFR (MDRD) Non-Af 96, BUN/Creatinine Ratio 10.7, Glucose 174 H, Calcium 9.3, Total Bilirubin 0.40, AST 15, ALT 19, Alkaline Phosphatase 103, Total Protein 6.2 L, Albumin 2.3 L, Globulin 3.9, Albumin/Globulin Ratio 0.6 L Micro: Microbiology 04/06/21 20:26 Nasal Secretion SARS-CoV-2 Antigen (Rapid) - Final Radiography Diagnostic Testing: Radiology Impression Chest X-Ray 04/06/21 20:25 IMPRESSION: Stable chest since August 2020. Probable right middle lobe subsegmental atelectasis or fibrosis. If the patient has symptoms suggestive of right-sided pneumonia correlate with CT chest. Electronically Signed: Nikos Beasley MD at 0:47 EST , Service support , Physical Exam Const alert, oriented x3 and no apparent distress HEENT head/scalp atraumatic and moist oral mucous membranes Head and Scalp: normocephalic Eyes PERRL, EOMs intact bilaterally and conjunctivae normal Neck no lymphadenopathy, supple and no JVD Resp normal respiratory effort, no retractions, no use of accessory muscles and clear to auscultation bilaterally Cardio regular rate, regular rhythm, no murmurs and no JVD GI normal to inspection, nondistended, normoactive bowel sounds, soft to palpation and non-tender Extremity normal to inspection, full ROM and no clubbing, cyanosis or edema Skin no rashes or lesions noted, no wounds, skin turgor normal and no jaundice Neuro CN's II-XII intact bilaterally Psych affect normal Assessment & Plan Assessment/Plan (1) Urinary tract infection: QUALIFIERS: Hematuria presence: without hematuria Urinary tract infection type: site unspecified Qualified Code(s): N39.0 - Urinary tract in fection, site not specified (2) Debility: (3) Frequent falls: (4) Weakness generalized: PLAN: Day 1 Discharge planning: Current plan is for patient to discharge to SNF pending PT/OT eval. Case management following. 1) acute cystitis Patient reports ongoing bladder pain with palpation to the suprapubic region, patient reports pain is stable and that she is able to make urine without too much discomfort. Patient does not appear confused or encephalopathic and u nderstands her current condition. Vital signs stable and patient is afebrile. CBC does not demonstrate a white count. Urine culture ordered on admission and is pending. Patient on cefepime due to prior UTI which showed E. coli that was resistant to Rocephin. 2) Debility/frequent falls/generalized weakness Patient with history of multiple falls in the past few months. On inspection there was no blood, bruising or evidence of trauma on the scalp. Patient family admits that they can no longer care for patient and would like to pursue placement. Patient would prefer to go home but is willing to participate in skilled care for a short period of time. 3) hyponatremia resolved, currently 136, continue to trend BMP. 4) supratherapeutic INR INR currently 3.9, was 4.7 on admission. Will hold Coumadin and continue to monitor PT/INR. 5) pulmonary hypertension Continue sildenafil. 6) atrial fibrillation Patient is on diltiazem for rate control and is anticoagulated on warfarin. Hold warfarin as above. Continue diltiazem. 7) COPD Not in acute exacerbation. Continue duo nebs and budesonide. Albuterol as needed. DVT prophylaxis -not indicated, INR is supratherapeutic. Patient seen by Dano Villagomez PA-C, under the supervision of Dr. Le. Documented by User: Dr. Alem Le MD 04/07/21 12:03 Objective Data Lab / Micro Data Result Diagrams: 04/07/21 09:11 04/07/21 09:11
[2021-04-07] MEDS: Glucerna Shake 120 ML LIQUID PO ×2 (13:34→21:54)
[2021-04-07] MEDS: Pravastatin 40 MG Tablet PO (21:52)
[2021-04-08] VITALS (8 sets, daily range): BP systolic 127–144; BP diastolic 50–57; PULSE 66–83; RESP 18; TEMP 36.8–37; O2SAT 94–97
[2021-04-08] MEDS: Budesonide Respules 0.5 MG/2 ML AMPUL.NEB. INHALATION ×2 (07:05→18:42)
[2021-04-08] MEDS: Ipratropium/Albuterol Sulfate 3 ML AMPUL.NEB INHALATION ×2 (07:05→18:42)
[2021-04-08 07:24] LABS: Absolute Lymphocyte Count 1.18 X10^3/uL (0.83-4.51); Absolute Neutrophil Count 5.1 X10^3/uL (2.0-7.7); Basophil# 0.04 X10^3/uL; Basophil% 0.6 % (0-1); Eosinophil# 0.16 X10^3/uL; Eosinophils% 2.3 % (0-5); Hemoglobin 13.3 g/dL (12.0-15.0); Lymphocyte # 1.18 X10^3/ul (0.83-4.51); Lymphocyte % 16.6 % (19-41); Mean Corp Hgb Conc 32.4 g/dL (32-36); Mean Corpuscular Hgb 27.4 pg (27.0-32.0); Mean Corpuscular Volume 84.5 fL (81-99); Monocyte# 0.55 X10^3/uL; Monocyte% 7.7 % (0-10); NRBC Flagged by Analyzer 0 % (0-5); Neutrophil # 5.06 X10^3/uL (2.7-7.7); Neutrophil % 71.1 % (47-70); Platelet Count 238 K/mm3 (150-450); RBC Distribution Width CV 14.1 % (11.6-14.6); RBC Distribution Width SD 43.7 fl (35.1-43.9); Red Blood Count 4.85 M/mm3 (4.2-5.4); White Blood Count 7.1 K/mm3 (4.4-11.0)
[2021-04-08 07:28] LABS: International Normalized Ratio 3.1; Prothrombin Time (Protime)PT. 30.9 SECONDS (11.7-14.9)
[2021-04-08 07:54] LABS: ALB/GLOB Ratio 0.6 RATIO (0.9-2.4); AST(SGOT) 11 U/L (15-37); Alanine Aminotransfer ALT/SGPT 19 U/L (13-56); Albumin, Serum 2.4 g/dL (3.2-5.0); Alkaline Phosphatase 102 U/L (45-117); Anion Gap 6 (5-15); BUN 10 mg/dL (7-18); BUN/Creat Ratio 13.8 RATIO (10-20); Calcium,Total 9.4 mg/dL (8.5-10.1); Chloride 100 mmol/L (98-107); Creatinine, Serum 0.72 mg/dL (0.55-1.02); EST Glomerular Filtration Rate 85 mL/min (>60); Est Glom Filt Rate - Afr Amer 103 mL/min (>60); Estimated Creatinine Clearance 47.14 ml/min; Globulin 4.2 g/dL (2.2-4.2); Glucose 162 mg/dL (74-106); Potassium 4.1 mmol/L (3.5-5.1); Protein, Total 6.6 g/dL (6.4-8.2); Sodium Level 134 mmol/L (136-145)
[2021-04-08] MEDS: Potassium Chloride Oral Tablet 20 MEQ PO ×3 (08:26→16:56)
[2021-04-08] MEDS: SILDENAFIL CITRATE 20 MG TABLET 60 MG PO ×3 (08:26→22:02)
[2021-04-08] MEDS: Tolterodine Tartrate 2 MG CAP.SA PO (08:27)
[2021-04-08] MEDS: Spironolactone 50 MG Tablet PO (08:27)
[2021-04-08] MEDS: dilTIAZem CD 180 MG Capsule 360 MG PO (08:27)
[2021-04-08] MEDS: Furosemide 40 MG Tablet PO ×2 (08:28→16:55)
[2021-04-08] MEDS: OLANZapine 5 MG/TAB TAB.RAPDIS PO (08:28)
[2021-04-08] MEDS: Pantoprazole Sodium 40 MG Tablet PO (08:28)
[2021-04-08] MEDS: 0.9% Saline Lock 10 ML Syringe IV ×2 (10:37→22:02)
[2021-04-08] MEDS: Glucerna Shake 120 ML LIQUID PO ×3 (10:40→22:00)
--- NOTE | 2021-04-08 11:35 | CASEMGMT ---
RN GUADALUPE Face to Face with patient for initial transition planning/care coordination assessment. RN CM introduced self and role at [facility]. Patient sitting in chair, alert and oriented. Patient willing to participate in assessment and is able to answer all questions appropriately. Care providers, pharmacy, and demographics verified. Patient wishes to discharge to [facility] for skilled therapy. Patient provided with list of SNF in [facility]. Patient states he has no further needs or concerns at this time. SW updated regarding request for SNF at discharge. CM to follow for discharge planning needs that may arise. PCP: Jose Miguel Pedraza Specialists: Abigail assembler latches and springs Preferred Pharmacy: [facility] Insurance: [employer] Prescription Benefit: yes Living Will/HPOA: yes, daughter Ramona Call HPOA LNOK: daughter Living Arrangements: Patient lives in a condo with no steps to enter. Patient states she was independent at home prior to hospitalization. Transportation: daughter DME/HHC: Patient states she has shower chair, raised toilet, grab bars, walker, wheelchair, and home oxygen at 6 lpm with portability through [facility]. Patient denies previous HHC or SNF Disposition Plan: Patient to discharge to [facility] pending acceptance and precert. Ariane C[place], RN, CM
--- NOTE | 2021-04-08 11:41 | PCM.PN.HOSP ---
Documented by User: Dano CHRISTIANSON 04/08/21 11:52 Subjective Subjective Patient is a 66-year-old female comfortably resting in a chair, alert and orient x3. Patient denies development of any new symptoms overnight. Does not appear in acute distress. Objective Data Objective Data Vital Signs: Vital Signs Temp Pulse Resp BP Pulse Ox 98.3 F 83 18 133/50 H 94 04/08/21 08:22 04/08/21 08:22 04/08/21 08:22 04/08/21 08:22 04/08/21 10:45 Oxygen Flow Rate (L/min) 4 Oxygen Delivery Method Nasal Cannula Weight: 185 lb 6.54 oz Body Mass Index (BMI) 31.6 Intake & Output: Intake and Output for Last 24 Hours 04/06/21 04/07/21 04/08/21 23:59 23:59 23:59 Intake Total 50 / 50 1250.67 / 1250.67 100 / 100 Balance 50 / 50 1250.67 / 1250.67 100 / 100 Lab / Micro Data Result Diagrams: 04/08/21 05:14 04/08/21 05:14 Labs: Laboratory Results - last 24 hr 04/08/21 05:14: WBC 7.1, RBC 4.85, Hgb 13.3, Hct 41.0, MCV 84.5, MCH 27.4, MCHC 32.4, RDW Std Deviation 43.7, RDW Coeff of Brittany 14.1, Plt Count 238, MPV 10.0, Immature Gran % (Auto) 1.700 H, Neut % (Auto) 71.1 H, Lymph % (Auto) 16.6 L, [place] % (Auto) 7.7, Eos % (Auto) 2.3, Baso % (Auto) 0.6, Absolute Neuts (auto) 5.1, Absolute Lymphs (auto) 1.18, Nucleated RBC % 0 04/08/21 05:14: PT 30.9 H, INR 3.1 04/08/21 05:14: Sodium 134 L, Potassium 4.1, Chloride 100, Carbon Dioxide 28.0, Anion Gap 6, BUN 10, Creatinine 0.72, Estim Creat Clear Calc 47.14, Est GFR (MDRD) Af Amer 103, Est GFR (MDRD) Non-Af 85, BUN/Creatinine Ratio 13.8, Glucose 162 H, Calcium 9.4, Total Bilirubin 0.50, AST 11 L, ALT 19, Alkaline Phosphatase 102, Total Protein 6.6, Albumin 2.4 L, Globulin 4.2, Albumin/Globulin Ratio 0.6 L Micro: Microbiology 04/06/21 21:03 Urine, Clean Catch Urine Culture - Final Escherichia coli 04/06/21 20:26 Nasal Secretion SARS-CoV-2 Antigen (Rapid) - Final Physical Exam Const alert, oriented x3 and no apparent distress HEENT head/scalp atraumatic, moist oral mucous membranes and oropharynx normal Head and Scalp: normocephalic Eyes PERRL, EOMs intact bilaterally and conjunctivae normal Neck no lymphadenopathy, supple and no JVD Resp normal respiratory effort, no retractions, no use of accessory muscles and clear to auscultation bilaterally Cardio regular rate, regular rhythm, no murmurs and no JVD GI normal to inspection, nondistended, normoactive bowel sounds, soft to palpation and non-tender Extremity normal to inspection, full ROM and no clubbing, cyanosis or edema Skin no rashes or lesions noted, no wounds and skin turgor normal Neuro CN's II-XII intact bilaterally Psych affect normal Assessment & Plan Assessment/Plan (1) Weakness generalized: (2) Fall at home: (3) Urinary tract infection: QUALIFIERS: Hematuria presence: without hematuria Urinary tract infection type: site unspecified Qualified Code(s): N39.0 - Urinary tract infection, site not specified PLAN: Day 2 Discharge planning: Current plan is for patient to discharge to SNF, case management following. Will need pre-CERT. 1) acute cystitis Urine culture demonstrated E. coli that is sensitive to cefepime. Patient continues to deny any urinary complaints. Vital signs stable and patient is afebrile. CBC does not demonstrate a leukocytosis and is otherwise unremarkable. Patient on cefepime due to prior UTI which showed E. coli that was resistant to Rocephin. 2) Debility/frequent falls/generalized weakness Patient with history of multiple falls in the past few months. On inspection there was no blood, bruising or evidence of trauma on the scalp. Patient family admits that they can no longer care for patient and would like to pursue placement. Patient would prefer to go home but is willing to participate in skilled care for a short period of time. 3) hyponatremia resolved, currently 136, continue to trend BMP. 4) supratherapeutic INR INR currently 3.1, was 4.7 on admission. Will hold Coumadin and continue to monitor PT/INR. 5) pulmonary hypertension Continue sildenafil. 6) atrial fibrillation Patient is on diltiazem for rate control and is anticoagulated on warfarin. Hold warfarin as above. Continue diltiazem. 7) COPD Not in acute exacerbation. Continue duo nebs and budesonide. Albuterol as needed. DVT prophylaxis -not indicated, INR is supratherapeutic. Patient seen by Dano Villagomez PA-C, under the supervision of Dr. Le. Documented by User: Dr. Alem Le MD 04/08/21 16:19 Objective Data Lab / Micro Data Result Diagrams: 04/08/21 05:14 04/08/21 05:14
[2021-04-08] MEDS: Ferrous Sulfate 325 MG Tablet PO (12:09)
--- NOTE | 2021-04-08 13:07 | CASEMGMT ---
Addendum entered by Lizette Merino 04/08/21 13:39: SW spoke w/Rose Marie at [facility], she received the referral and will let SW know as soon as she knows, if they can take pt. If they can take pt they will start precert. LIVE Velasquez Addendum entered by Lizette Merino 04/08/21 13:22: Social Work SW spoke w/pt, reassured her that the referral was sent to [facility]. Pt's bottom lip started shaking, SW asked what was wrong. She states she thought it was all set for [facility] and then the oil field caser brought in a residential list. SW explained to pt that we are required to give pts a list of nursing homes that take pt's insurance, and this is why the list was given. SW explained we do still need to hear back from [facility] however stating that they can definitely can take pt. SW explained once we hear from [facility] will let her know, and if [facility] cannot take pt, SW reassured pt that we will work on getting her to another fdc facility. Pt states understanding, SW will continue to follow. LIVE Velasquez Original Note: Social Work CM spoke w/pt, she asked for referral to be sent to [facility]. Pt's daughter Afia then called SW to speak w/MIRANDA about discharge plan. Daughter Afia confirms that family and pt would like a referral sent to [facility]. Afia states pt's other daughter Martha spoke w/Wilson at [facility], who indicated they can take pt on Thursday. SW explained that we will send the referral, and if [facility] can take pt, they need to attain precert from insurance. SW explained that [facility] has not been taking admissions due to a COVID outbreak, and they are to open on Thursday. SW explained if they can take pt, then Thursday will likely be good timing as it often takes [place] 1-2 days for precert to be attained. Daughter states understanding. She also asked about the 3 day stay rule w/Medicare. SW explained that this only applies if a pt has traditional Medicare, and that pt has managed Medicare, so in this pt's situation, she needs a precert rather than a 3 day stay. Daughter states understanding. SW called [facility], faxed referral. SW will keep daughter and pt informed once we hear back from [facility] in regard to the referral. LIVE Velsaquez
--- NOTE | 2021-04-08 14:46 | CHAPLAIN ---
Type of Pastoral Visit _x__ Initial Visit ___ Follow-up Visit ___ On-call Visit ___ General Patient Visit ___ Spiritual Assessment ___ Family Conference ___ Bereavement ___ Rapid Response ___ Code Blue ___ Other (describe below) Pastoral Care Referral From _x__ Patient ___ Family ___ Nurse ___ Physician ___ Buildings And Grounds Coordinator ___ Skein Drier ___ Other (describe below) Sacrament/Intervention _x__ Active listening ___ Anointing ___ Protestant ___ Bereavement ___ Communion _x__ Meme exploration ___ _x__ Life review _x__ Prayer ___ Reconciliation ___ Sacrament of Sick _x__ Supportive presence ___ Wedding ___ Other (describe below) Pastoral Comments patient speaks of her weakness and falls in the home; pt then admits fears about leaving her home and coping with being away from home; listened as patient describes her feelings and brought focus to what good can be seen; subject of meme led to other coping thoughts; pt discovered some common relationships that also aided in bridging the trust factor for patient; prayer was welcomed; pt expressed thankfulness for visit and appeared to achieve some calm
[2021-04-08] MEDS: Pravastatin 40 MG Tablet PO (22:01)
[2021-04-09] VITALS (8 sets, daily range): BP systolic 137–146; BP diastolic 55–63; PULSE 69–89; RESP 14–18; TEMP 36.5–37.1; O2SAT 93–98
[2021-04-09 07:13] LABS: Absolute Neutrophil Count 6.3 X10^3/uL (2.0-7.7); Basophil# 0.05 X10^3/uL; Basophil% 0.6 % (0-1); Eosinophil# 0.23 X10^3/uL; Eosinophils% 2.8 % (0-5); Hemoglobin 13.1 g/dL (12.0-15.0); Mean Corpuscular Hgb 27.2 pg (27.0-32.0); Mean Corpuscular Volume 85.2 fL (81-99); Mean Platelet Vol. 9.8 fl (6.2-12.0); Monocyte# 0.56 X10^3/uL; Monocyte% 6.7 % (0-10); NRBC Flagged by Analyzer 0 % (0-5); Neutrophil # 6.33 X10^3/uL (2.7-7.7); Neutrophil % 75.7 % (47-70); Platelet Count 244 K/mm3 (150-450); RBC Distribution Width SD 43.5 fl (35.1-43.9); Red Blood Count 4.81 M/mm3 (4.2-5.4); White Blood Count 8.4 K/mm3 (4.4-11.0)
[2021-04-09 07:50] LABS: ALB/GLOB Ratio 0.6 RATIO (0.9-2.4); AST(SGOT) 10 U/L (15-37); Alanine Aminotransfer ALT/SGPT 19 U/L (13-56); Albumin, Serum 2.4 g/dL (3.2-5.0); Alkaline Phosphatase 93 U/L (45-117); Anion Gap 8 (5-15); BUN 12 mg/dL (7-18); BUN/Creat Ratio 16.6 RATIO (10-20); Calcium,Total 9.4 mg/dL (8.5-10.1); Chloride 99 mmol/L (98-107); Creatinine, Serum 0.72 mg/dL (0.55-1.02); EST Glomerular Filtration Rate 86 mL/min (>60); Est Glom Filt Rate - Afr Amer 104 mL/min (>60); Estimated Creatinine Clearance 47.14 ml/min; Glucose 177 mg/dL (74-106); Potassium 4.1 mmol/L (3.5-5.1); Protein, Total 6.4 g/dL (6.4-8.2); Sodium Level 136 mmol/L (136-145)
[2021-04-09 08:01] LABS: International Normalized Ratio 2.2; Prothrombin Time (Protime)PT. 23.8 SECONDS (11.7-14.9)
[2021-04-09] MEDS: Potassium Chloride Oral Tablet 20 MEQ PO ×3 (08:01→17:27)
[2021-04-09] MEDS: SILDENAFIL CITRATE 20 MG TABLET 60 MG PO ×3 (08:01→21:33)
--- NOTE | 2021-04-09 09:58 | CASEMGMT ---
Social Work Note SW placed a call to Ann at [facility] and left message inquiring about referral. SW waiting for call back. Plan: [facility] pending acceptance and pre-cert Ariane Garcia PICK AND SHOVEL MAN, DEMAND MANAGER
[2021-04-09] MEDS: Furosemide 40 MG Tablet PO ×2 (10:32→17:27)
[2021-04-09] MEDS: Spironolactone 50 MG Tablet PO (10:32)
[2021-04-09] MEDS: dilTIAZem CD 180 MG Capsule 360 MG PO (10:33)
[2021-04-09] MEDS: Pantoprazole Sodium 40 MG Tablet PO (10:33)
[2021-04-09] MEDS: Tolterodine Tartrate 2 MG CAP.SA PO (10:33)
[2021-04-09] MEDS: OLANZapine 5 MG/TAB TAB.RAPDIS PO (10:33)
[2021-04-09] MEDS: ALPRAZolam 0.5 MG Tablet PO ×2 (10:33→17:38)
[2021-04-09] MEDS: Glucerna Shake 120 ML LIQUID PO ×4 (10:33→21:32)
[2021-04-09] MEDS: 0.9% Saline Lock 10 ML Syringe IV (10:37)
[2021-04-09] MEDS: Budesonide Respules 0.5 MG/2 ML AMPUL.NEB. INHALATION ×2 (12:29→19:21)
[2021-04-09] MEDS: Ipratropium/Albuterol Sulfate 3 ML AMPUL.NEB INHALATION ×2 (12:29→19:20)
--- NOTE | 2021-04-09 12:43 | PCM.PN.HOSP ---
Documented by User: Dano CHRISTIANSON 04/09/21 12:59 Subjective Subjective Patient is a 66-year-old female comfortably resting in a chair, alert and orient x3. Patient denies development of any new symptoms overnight and does not appear in acute distress. Denies chest pain, shortness of breath, palpitations, hemoptysis, sputum production, fever, chills, N/V/D. Objective Data Objective Data Vital Signs: Vital Signs Temp Pulse Resp BP Pulse Ox 97.7 F L 69 18 144/59 H 94 04/09/21 10:37 04/09/21 10:37 04/09/21 10:37 04/09/21 10:37 04/09/21 10:37 Oxygen Flow Rate (L/min) 5 Oxygen Delivery Method Nasal Cannula Weight: 185 lb 6.54 oz Body Mass Index (BMI) 31.6 Intake & Output: Intake and Output for Last 24 Hours 04/07/21 04/08/21 04/09/21 23:59 23:59 23:59 Intake Total 1250.67 / 1250.67 100 / 100 238.25 / 238.25 Balance 1250.67 / 1250.67 100 / 100 238.25 / 238.25 Lab / Micro Data Result Diagrams: 04/09/21 05:55 04/09/21 05:55 Labs: Laboratory Results - last 24 hr 04/09/21 05:55: WBC 8.4, RBC 4.81, Hgb 13.1, Hct 41.0, MCV 85.2, MCH 27.2, MCHC 32.0, RDW Std Deviation 43.5, RDW Coeff of Brittany 14.0, Plt Count 244, MPV 9.8, Immature Gran % (Auto) 2.200 H, Neut % (Auto) 75.7 H, Lymph % (Auto) 12.0 L, [place] % (Auto) 6.7, Eos % (Auto) 2.8, Baso % (Auto) 0.6, Absolute Neuts (auto) 6.3, Absolute Lymphs (auto) 1.00, Nucleated RBC % 0 04/09/21 05:55: PT 23.8 H, INR 2.2 04/09/21 05:55: Sodium 136, Potassium 4.1, Chloride 99, Carbon Dioxide 29.0, Anion Gap 8, BUN 12, Creatinine 0.72, Estim Creat Clear Calc 47.14, Est GFR (MDRD) Af Amer 104, Est GFR (MDRD) Non-Af 86, BUN/Creatinine Ratio 16.6, Glucose 177 H, Calcium 9.4, Total Bilirubin 0.30, AST 10 L, ALT 19, Alkaline Phosphatase 93, Total Protein 6.4, Albumin 2.4 L, Globulin 4.0, Albumin/Globulin Ratio 0.6 L Micro: Microbiology 04/06/21 21:03 Urine, Clean Catch Urine Culture - Final Escherichia coli 04/06/21 20:26 Nasal Secretion SARS-CoV-2 Antigen (Rapid) - Final Physical Exam Const alert, oriented x3 and no apparent distress HEENT head/scalp atraumatic and moist oral mucous membranes Head and Scalp: normocephalic Eyes PERRL, EOMs intact bilaterally and conjunctivae normal Neck no lymphadenopathy, supple and no JVD Resp normal respiratory effort, no retractions, no use of accessory muscles and clear to auscultation bilaterally Cardio regular rate, regular rhythm, no murmurs and no JVD GI normal to inspection, nondistended, normoactive bowel sounds, soft to palpation and non-tender Extremity normal to inspection, full ROM and no clubbing, cyanosis or edema Peripheral Pulses: Yes pulses 2+ throughout Skin no rashes or lesions noted, no wounds, skin turgor normal and no jaundice Neuro CN's II-XII intact bilaterally Psych affect normal Assessment & Plan Assessment/Plan (1) Urinary tract infection: QUALIFIERS: Hematuria presence: without hematuria Urinary tract infection type: site unspecified Qualified Code(s): N39.0 - Urinary tract infection, site not specified (2) Frequent falls: (3) Debility: PLAN: Day 3 Discharge planning: Discharge to [facility] pending acceptance and pre-CERT. 1) acute cystitis Urine culture demonstrated E. coli that is sensitive to cephalosporins. \ Patient continues to deny any urinary complaints. Vital signs stable and patient is afebrile. CBC does not demonstrate a leukocytosis and is otherwise unremarkable. Patient transition from cefepime to cefdinir based off sensitivities. Cefdinir to be completed on April 13, 2021. 2) Debility/frequent falls/generalized weakness Patient with history of multiple falls in the past few months. On inspection there was no blood, bruising or evidence of trauma on the scalp. Patient family admits that they can no longer care for patient and would like to pursue placement. Discharge to [facility] as above. 3) hyponatremia resolved, currently 136, continue to trend BMP. 4) supratherapeutic INR Resolved, INR currently 2.2. Resume Coumadin. 5) pulmonary hypertension Continue sildenafil. 6) atrial fibrillation Patient is on diltiazem for rate control and is anticoagulated on warfarin. Continue diltiazem and warfarin. 7) COPD Not in acute exacerbation. Continue duo nebs and budesonide. Albuterol as needed. DVT prophylaxis -not indicated, INR is supratherapeutic. Patient seen by Dano Villagomez PA-C, under the supervision of Dr. Le. Documented by User: Dr. Alem Le MD 04/09/21 19:06 Objective Data Lab / Micro Data Result Diagrams: 04/09/21 05:55 04/09/21 05:55
--- NOTE | 2021-04-09 13:15 | CASEMGMT ---
Social Work Note SW received message from Ann at [facility] stating they had questions regarding one of pt's medications. Ann states their Digital Program Manager is trying to get in contact with pt's PCP regarding the medication and pt's PCP is not back in the office until tomorrow. Ariane Garcia DISTRIBUTION ENGINEERING TECHNOLOGIST, RING FACER
[2021-04-09] MEDS: Ferrous Sulfate 325 MG Tablet PO (13:33)
--- NOTE | 2021-04-09 13:58 | CASEMGMT ---
Addendum entered by Lizette Merino 04/09/21 15:05: SW spoke w/Rose Marie at [facility], she states the physician still will not fully accept pt until he speaks to pt's PCP for clarification on why pt is on Zyprexa. LIVE Velasquez Addendum entered by Lizette Merino 04/09/21 14:32: Pt's daughter called back. SW let her know did go in to speak w/pt, and told her we are still waiting to hear back from [facility]. SW inquired w/daughter also why she takes Zyprexa. Daughter also states pt takes it for anxiety. She explains pt used to take Xanax and then Zyprexa was added, as it was explained to them that it can enhance the effect of the Xanax. Pt is on Xanax PRN now however, as pt is older and she is having some memory issues. SW explained will let [facility] know this, and that we are still waiting to hear if [facility] can take pt. Daughter states understanding. SW called [facility] again, reiterated to Rose Marie that as per daughter pt is on Zyprexa for anxiety. Rose Marie to let SW know if they can take pt and start precert. LIVE Velasquez Original Note: Pt's daughter called earlier, message left. SW on MS3 received a message in regard to this pt and one medication she is on, why she is on it; her message states that Dr. Castillo at [facility] called to the PCP to find out, and the PCP won't be back in until tomorrow to answer this question, so cannot give an answer on whether or not they can take the pt. MIRANDA called Rose Marie back from [facility], the medication is Zyprexa. Rose Marie states the physician wants to know why the pt is on it as it is something they can be flagged for if they do not have a good reason why the pt is taking it. MIRANDA called daughter back, message left. SW will speak w/daughter when she returns the call. SW did speak w/pt also in regard to the Zyprexa. Pt states that she takes this for anxiety. SW explained we are still waiting to hear from [facility] on whether or not they can take pt, will let her know. SW called Rose Marie back, let her know that as per pt she takes Zyprexa for anxiety. She will let Dr. Castillo know, and let this SW know. LIVE Velasquez
--- NOTE | 2021-04-09 15:12 | CASEMGMT ---
SW called daughter Elizabeth Call. SW explained that [facility] still will not give a definite answer until Dr. Castillo speaks to Dr. Pedraza in regard to the Zyprexa, and we are hoping that we can get an answer on this tomorrow. Daughter states if needed she can assist in getting Dr. Pedraza in touch w/Dr. Castillo. SW asked daughter if [facility] cannot take pt, what would other choices be. She states [facility] would be a possibility, or possibly [facility]. She does want pt to stay in [place] as it will make pt too anxious if she is too far from home. SW explained will follow up tomorrow. SW did call TCU to check on bed availability, they do not have any availability at this time. LIVE Velasquez
[2021-04-09] MEDS: Pravastatin 40 MG Tablet PO (21:32)
[2021-04-09] MEDS: Cefdinir 300 MG Capsule PO (21:32)
[2021-04-10] VITALS (10 sets, daily range): BP systolic 128–148; BP diastolic 52–64; PULSE 66–84; RESP 16–20; TEMP 36.7–38; O2SAT 94–96
[2021-04-10 05:56] LABS: Absolute Lymphocyte Count 1.31 X10^3/uL (0.83-4.51); Absolute Neutrophil Count 7.9 X10^3/uL (2.0-7.7); Basophil# 0.07 X10^3/uL; Basophil% 0.7 % (0-1); Eosinophil# 0.24 X10^3/uL; Eosinophils% 2.3 % (0-5); Hematocrit 42.1 % (37-47); Hemoglobin 13.5 g/dL (12.0-15.0); International Normalized Ratio 2.1; Lymphocyte # 1.31 X10^3/ul (0.83-4.51); Lymphocyte % 12.7 % (19-41); Mean Corp Hgb Conc 32.1 g/dL (32-36); Mean Corpuscular Hgb 27.2 pg (27.0-32.0); Mean Corpuscular Volume 84.9 fL (81-99); Mean Platelet Vol. 9.8 fl (6.2-12.0); Monocyte# 0.64 X10^3/uL; Monocyte% 6.2 % (0-10); NRBC Flagged by Analyzer 0 % (0-5); Neutrophil # 7.88 X10^3/uL (2.7-7.7); Neutrophil % 76.2 % (47-70); Platelet Count 260 K/mm3 (150-450); Prothrombin Time (Protime)PT. 22.4 SECONDS (11.7-14.9); RBC Distribution Width CV 14.1 % (11.6-14.6); RBC Distribution Width SD 43.3 fl (35.1-43.9); Red Blood Count 4.96 M/mm3 (4.2-5.4); White Blood Count 10.3 K/mm3 (4.4-11.0)
[2021-04-10 06:13] LABS: ALB/GLOB Ratio 0.6 RATIO (0.9-2.4); AST(SGOT) 16 U/L (15-37); Alanine Aminotransfer ALT/SGPT 21 U/L (13-56); Albumin, Serum 2.6 g/dL (3.2-5.0); Alkaline Phosphatase 97 U/L (45-117); Anion Gap 5 (5-15); BUN 12 mg/dL (7-18); BUN/Creat Ratio 16.4 RATIO (10-20); Calcium,Total 9.6 mg/dL (8.5-10.1); Chloride 98 mmol/L (98-107); Creatinine, Serum 0.73 mg/dL (0.55-1.02); EST Glomerular Filtration Rate 84 mL/min (>60); Est Glom Filt Rate - Afr Amer 102 mL/min (>60); Estimated Creatinine Clearance 47.14 ml/min; Glucose 190 mg/dL (74-106); Potassium 4.2 mmol/L (3.5-5.1); Protein, Total 6.6 g/dL (6.4-8.2); Sodium Level 134 mmol/L (136-145)
[2021-04-10] MEDS: ALPRAZolam 0.5 MG Tablet PO ×2 (06:18→18:22)
[2021-04-10] MEDS: Ipratropium/Albuterol Sulfate 3 ML AMPUL.NEB INHALATION ×3 (07:17→19:55)
[2021-04-10] MEDS: Budesonide Respules 0.5 MG/2 ML AMPUL.NEB. INHALATION ×2 (07:17→19:55)
[2021-04-10] MEDS: Potassium Chloride Oral Tablet 20 MEQ PO ×3 (08:58→16:21)
[2021-04-10] MEDS: SILDENAFIL CITRATE 20 MG TABLET 60 MG PO ×3 (08:59→21:37)
[2021-04-10] MEDS: Spironolactone 50 MG Tablet PO (08:59)
[2021-04-10] MEDS: dilTIAZem CD 180 MG Capsule 360 MG PO (09:00)
[2021-04-10] MEDS: Tolterodine Tartrate 2 MG CAP.SA PO (09:00)
[2021-04-10] MEDS: Glucerna Shake 120 ML LIQUID PO ×4 (09:00→21:31)
[2021-04-10] MEDS: Cefdinir 300 MG Capsule PO ×2 (09:01→21:31)
[2021-04-10] MEDS: Furosemide 40 MG Tablet PO ×2 (09:01→16:22)
[2021-04-10] MEDS: Pantoprazole Sodium 40 MG Tablet PO (09:01)
[2021-04-10] MEDS: OLANZapine 5 MG/TAB TAB.RAPDIS PO (09:02)
[2021-04-10] MEDS: Ferrous Sulfate 325 MG Tablet PO (09:02)
--- NOTE | 2021-04-10 10:08 | CASEMGMT ---
Addendum entered by Ariane Garcia 04/10/21 11:29: MIRANDA placed a call to pt's daughter Ramona. MIRANDA updated Ramona that this worker called [facility] again today and gave them the time limit to let this worker know by 12:30pm today if they can or cannot accept pt. MIRANDA informed Ramona that [facility] has no beds available but this worker did send a referral to [facility] and they are able to accept pt. Ramona asked if they have to take the bed at [facility] since they accepted pt and this worker informed Ramona that this worker is trying to get a back up plan in the event [facility] is not able to accept. MIRANDA informed Ramona that pt is medically cleared for discharge, [facility] needs bed so pre-cert needs to be started with a SNF today. Ramona states they she will also reach out to [facility] and push on her end for them to let this worker know a answer regarding referral. MIRANDA informed Ramona that this worker will keep her updated. Ramona states understanding. Addendum entered by Ariane Garcia 04/10/21 11:10: MIRANDA received call from Elaine at [facility] stating they can accept pt. MIRANDA placed a call to Ann at [facility] cell phone and work phone and left message to let this worker know by 12:30pm today if they can or cannot accept pt as this worker has a different SNF that can accept pt. MIRANDA waiting for call back from [place]. Original Note: Social Work Note SW still waiting to hear from [facility] regarding referral. Per previous conversations, pt's daughter would be ok with either [facility] or [facility]CU as next choices. [facility] has no beds available. MIRANDA placed a call to Elaine at [facility]. Elaine states they do have a bed available. MIRANDA faxed referral to [facility]. Plan: SNF pending acceptance and pre-cert Ariane Garcia ORNAMENTAL METAL FABRICATOR APPRENTICE, SUPERVISOR PULLET FARM
--- NOTE | 2021-04-10 12:15 | CASEMGMT ---
Addendum entered by Ariane Garcia 04/10/21 15:33: SW faxed updated clinicals to [facility]. Original Note: Social Work Note MIRANDA placed a call to Ann at [facility]. Check states [facility] is able to accept pt and pre-cert has been submitted. MIRANDA placed a call to Pt's daughter Ramona and updated her that [facility] is able to accept pt pending pre-cert. SW informed Ramona that this worker will update her when pre-cert is obtained. Ramona states understanding. SW in to speak with pt. SW updated pt that [facility] is able to accept pt pending pre-cert. Pt asked about being transported via private car. Pt states that she is on home oxygen and her family is able to bring in tanks for transport. SW informed pt that this worker will check with pt's family on day of discharge regarding transportation. Pt states understanding. MIRANDA placed a call to Elaine at [facility] [place] to disregard referral. Plan: [facility] pending pre-cert Ariane Garcia FORM MAKER PLASTER, CHOPPING MACHINE OPERATOR
--- NOTE | 2021-04-10 12:35 | PN.HOSP_ITS ---
Documented by User: Dano CHRISTIANSON 04/10/21 12:42 Subjective Subjective Patient is a 66-year-old female comfortably resting in a chair, alert and oriented x3. Patient continues to deny any ongoing urinary symptoms and was happy with her performance of physical therapy today. Denies development of any new symptoms overnight. Does not appear in acute distress. Objective Data Objective Data Vital Signs: Vital Signs Temp Pulse Resp BP Pulse Ox 98.4 F 70 18 136/62 H 96 04/10/21 09:05 04/10/21 09:14 04/10/21 09:14 04/10/21 09:05 04/10/21 09:49 Oxygen Flow Rate (L/min) 4 Oxygen Delivery Method Nasal Cannula Weight: 185 lb 6.54 oz Body Mass Index (BMI) 31.6 Intake & Output: Intake and Output for Last 24 Hours 04/08/21 04/09/21 04/10/21 23:59 23:59 23:59 Intake Total 100 / 100 478.25 / 478.25 Balance 100 / 100 478.25 / 478.25 Lab / Micro Data Result Diagrams: 04/10/21 04:56 04/10/21 04:56 Labs: Laboratory Results - last 24 hr 04/10/21 04:56: WBC 10.3, RBC 4.96, Hgb 13.5, Hct 42.1, MCV 84.9, MCH 27.2, MCHC 32.1, RDW Std Deviation 43.3, RDW Coeff of Brittany 14.1, Plt Count 260, MPV 9.8, Immature Gran % (Auto) 1.900 H, Neut % (Auto) 76.2 H, Lymph % (Auto) 12.7 L, [place] % (Auto) 6.2, Eos % (Auto) 2.3, Baso % (Auto) 0.7, Absolute Neuts (auto) 7.9 H, Absolute Lymphs (auto) 1.31, Nucleated RBC % 0 04/10/21 04:56: PT 22.4 H, INR 2.1 04/10/21 04:56: Sodium 134 L, Potassium 4.2, Chloride 98, Carbon Dioxide 31.0, Anion Gap 5, BUN 12, Creatinine 0.73, Estim Creat Clear Calc 47.14, Est GFR (MDRD) Af Amer 102, Est GFR (MDRD) Non-Af 84, BUN/Creatinine Ratio 16.4, Glucose 190 H, Calcium 9.6, Total Bilirubin 0.30, AST 16, ALT 21, Alkaline Phosphatase 97, Total Protein 6.6, Albumin 2.6 L, Globulin 4.0, Albumin/Globulin Ratio 0.6 L Micro: Microbiology 04/06/21 21:03 Urine, Clean Catch Urine Culture - Final Escherichia coli 04/06/21 20:26 Nasal Secretion SARS-CoV-2 Antigen (Rapid) - Final Physical Exam Const alert, oriented x3 and no apparent distress HEENT head/scalp atraumatic and moist oral mucous membranes Head and Scalp: normocephalic Eyes PERRL, EOMs intact bilaterally and conjunctivae normal Neck no lymphadenopathy, supple and no JVD Resp normal respiratory effort, no retractions, no use of accessory muscles and clear to auscultation bilaterally Cardio regular rate, regular rhythm, no murmurs and no JVD GI normal to inspection, nondistended, normoactive bowel sounds, soft to palpation and non-tender Extremity normal to inspection, full ROM and no clubbing, cyanosis or edema Skin no rashes or lesions noted, no wounds, skin turgor normal and no jaundice Neuro CN's II-XII intact bilaterally Psych affect normal Assessment & Plan Assessment/Plan (1) Urinary tract infection: QUALIFIERS: Hematuria presence: without hematuria Urinary tract infection type: site unspecified Qualified Code(s): N39.0 - Urinary tract infection, site not specified (2) Frequent falls: (3) Debility: PLAN: Day 4 Discharge planning: Discharge to [facility] pending acceptance and pre-CERT. 1) acute cystitis Urine culture demonstrated E. coli that is sensitive to cephalosporins. Patient continues to deny any urinary complaints. Vital signs stable and patient is afebrile. CBC does not demonstrate a leukocytosis and is otherwise unremarkable. Patient transition from cefepime to cefdinir based off sensitivities. Cefdinir to be completed on April 13, 2021. 2) Debility/frequent falls/generalized weakness Patient with history of multiple falls in the past few months. On inspection there was no blood, bruising or evidence of trauma on the scalp. Patient family admits that they can no longer care for patient and would like to pursue placement. Discharge to [facility] as above. 3) hyponatremia Currently 134, continue to monitor.l 4) supratherapeutic INR Resolved, INR currently 2.1. Resume Coumadin. 5) pulmonary hypertension Continue sildenafil. 6) atrial fibrillation Patient is on diltiazem for rate control and is anticoagulated on warfarin. Continue diltiazem and warfarin. 7) COPD Not in acute exacerbation. Continue duo nebs and budesonide. Albuterol as needed. DVT prophylaxis - not indicated, INR is supratherapeutic. Patient seen by Dano Villagomez PA-C, under the supervision of Dr. Le. Documented by User: Dr. Alem Le MD 04/10/21 17:54 Objective Data Lab / Micro Data Result Diagrams: 04/10/21 04:56 04/10/21 04:56
[2021-04-10] MEDS: Pravastatin 40 MG Tablet PO (21:31)
[2021-04-11] VITALS (7 sets, daily range): BP systolic 141–149; BP diastolic 60–61; PULSE 70–82; RESP 12–18; TEMP 36.5–36.8; O2SAT 5–95
[2021-04-11 06:56] LABS: Absolute Lymphocyte Count 1.27 X10^3/uL (0.83-4.51); Absolute Neutrophil Count 8.3 X10^3/uL (2.0-7.7); Basophil# 0.05 X10^3/uL; Basophil% 0.5 % (0-1); Eosinophil# 0.22 X10^3/uL; Eosinophils% 2.1 % (0-5); Hemoglobin 13.5 g/dL (12.0-15.0); Lymphocyte # 1.27 X10^3/ul (0.83-4.51); Lymphocyte % 11.9 % (19-41); Mean Corp Hgb Conc 32.1 g/dL (32-36); Mean Platelet Vol. 9.4 fl (6.2-12.0); Monocyte# 0.72 X10^3/uL; Monocyte% 6.7 % (0-10); NRBC Flagged by Analyzer 0 % (0-5); Neutrophil # 8.25 X10^3/uL (2.7-7.7); Neutrophil % 77.1 % (47-70); Platelet Count 269 K/mm3 (150-450); RBC Distribution Width SD 43.1 fl (35.1-43.9); White Blood Count 10.7 K/mm3 (4.4-11.0)
--- NOTE | 2021-04-11 07:00 | PN.HOSP_ITS ---
Subjective Subjective Patient with no acute events overnight per self and per nursing report. Patient's successfully currently weaned down to 4 L nasal cannula which was discussed at length that she had previously been more elevated into the 6 L chronic range. Patient noted she did have a panic attack overnight but this improved with benzodiazepine administration. She states she does occasionally have these. Discussed with patient and she is very concerned JAGRUTI being requested for her to have her upcoming ophthalmology visit at 2:15 p.m. Discussed that we are still awaiting precertification for [facility] facility. Patient denies fevers, chills, nausea, emesis, abdominal pain, chest pain or dyspnea. Objective Data Objective Data Vital Signs: Vital Signs Temp Pulse Resp BP Pulse Ox 98.2 F 78 12 149/61 H 94 04/11/21 08:40 04/11/21 12:32 04/11/21 12:32 04/11/21 08:40 04/11/21 12:32 Oxygen Flow Rate (L/min) 3 Oxygen Delivery Method Nasal Cannula Weight: 185 lb 6.54 oz Body Mass Index (BMI) 31.6 Intake & Output: Intake and Output for Last 24 Hours 04/09/21 04/10/21 04/11/21 23:59 23:59 23:59 Intake Total 478.25 / 478.25 600 / 600 1000 / 1000 Balance 478.25 / 478.25 600 / 600 1000 / 1000 Lab / Micro Data Result Diagrams: 04/11/21 05:55 04/11/21 05:55 Labs: Laboratory Results - last 24 hr 04/11/21 05:05: PT 19.9 H, INR 1.8 04/11/21 05:55: WBC 10.7, RBC 5.00, Hgb 13.5, Hct 42.0, MCV 84.0, MCH 27.0, MCHC 32.1, RDW Std Deviation 43.1, RDW Coeff of Brittany 14.0, Plt Count 269, MPV 9.4, Immature Gran % (Auto) 1.700 H, Neut % (Auto) 77.1 H, Lymph % (Auto) 11.9 L, [place] % (Auto) 6.7, Eos % (Auto) 2.1, Baso % (Auto) 0.5, Absolute Neuts (auto) 8.3 H, Absolute Lymphs (auto) 1.27, Nucleated RBC % 0 04/11/21 05:55: Sodium 134 L, Potassium 4.0, Chloride 97 L, Carbon Dioxide 31.0, Anion Gap 6, BUN 14, Creatinine 0.70, Estim Creat Clear Calc 47.14, Est GFR (MDRD) Af Amer 107, Est GFR (MDRD) Non-Af 88, BUN/Creatinine Ratio 19.9, Glucose 215 H, Calcium 9.5, Total Bilirubin 0.30, AST 10 L, ALT 21, Alkaline Phosphatase 99, Total Protein 6.6, Albumin 2.7 L, Globulin 3.9, Albumin/Globulin Ratio 0.7 L 04/11/21 08:03: POC Glucose 204 H Micro: Microbiology 04/06/21 21:03 Urine, Clean Catch Urine Culture - Final Escherichia coli 04/06/21 20:26 Nasal Secretion SARS-CoV-2 Antigen (Rapid) - Final Physical Exam Narrative Physical Examination: General: awake, alert, oriented x 3 and cooperative, seated upright in bed, no acute distress. Skin: normal color, turgor, no icterus, cyanosis. HEENT: AT/NC, EOMI, PERRLA, MMM. Lungs: Remains diminished, greater bases, appropriate effort, on significantly high amounts of chronic oxygen, no rales, ronchi or wheezing. Heart: Regular rate and rhythm; no gallop, rub audible. Abdomen: soft, obesity, NTTP, ND, normal BS. Extremities: no cyanosis, clubbing, or edema. Neurological: patient awake, alert, oriented as noted; cognitive function suspect baseline intact but does have odd flat affect; pupils equally reactive to light and accommodation; cranial nerves II-XII grossly normal, moving all 4 extremities, no focal deficits, strength moderately globally decreased suspect secondary to underlying comorbidities primarily and acutely worsened by acute presentation. Psychiatric: affect appears improved, does report with anxiety/panic attack overnight, resolved, currently no acute evidence of depressive or anxiety feelings. Assessment & Plan Assessment/Plan (1) Urinary tract infection: QUALIFIERS: Urinary tract infection type: site unspecified Hematuria presence: without hematuria Qualified Code(s): N39.0 - Urinary tract infection, site not specified PLAN: The patient is a 66 y/o F w/ PMHx: Obesity, Lupus anticoagulant disorder with Hx PE, PAF, Anxiety and Depression, Former Tobacco use, Chronic COPD (severe) with Chronic Hypoxic Respiratory Failure complicated by pulmonary hypertension (6L rest and 6.5L with activity) who presents to the [facility] ED on 04/07/21 w/ history of increasing fatigue, malaise and inability to care for her self, worsening over the last 6 weeks with family unable to manage her with patient recent onset of dizziness and chronic vision changes with already in place aggressive ophthalmology follow-up with recent difficulty with urination, dysuria prompting ED evaluation. #1. Acute E. Coli Urinary Tract Infection: Patient admitted to medical surgical floor, UA upon ED evaluation remarkable, Urine culture finalization with 50,000- 80,000 E. coli and although not greater than 100,000 colony-forming units patient was symptomatic therefore continued treatment, sensitivities resulted with appropriate sensitivity to cephalosporins, transition to cefdinir to completion. Still awaiting [facility]pc facility placement precertification. Continue PT/OT. #2. Failure to thrive, adult: Per discussions patient is unable to care for herself nor is her family and she is had significant decline over the last several weeks to months, will maintain on fall precautions, case management, PT, OT consulted for discharge to SNF, still awaiting precertification. #3. PAF: We will continue patient home diltiazem regimen with Coumadin as noted with INR trending with hold parameters as needed. #4. Chronic COPD with chronic hypoxic respiratory failure complicated by pulmonary hypertension: We will continue patient home chronic 6 L at rest and 6.5 L with activity, decrease down to 4 L currently inpatient, continued on letairis and sildenafil, budesonide as well as as needed albuterol regimen in addition to scheduled DuoNeb therapies, encourage head of bed and I-S usage. #5. History of PE with lupus anticoagulant disorder: Temporarily had held Coumadin as patient was supratherapeutic, resolved, continue to trend INR with hold parameters as needed. #6. Anxiety and depression/claustrophobia: We will continue patient home olanzapine regimen. #7. Hypertension: Continue home regimen including Lasix as well as diltiazem with hold parameters as needed, PRN hydralazine. #8. Obesity: Weight loss and lifestyle changes encouraged. #9. Hyperlipidemia: We will continue patient on statin therapy. #10. Former tobacco usage: Encourage continued tobacco cessation. #11. GERD: We will continue patient home PPI. #12. DVT prophylaxis: SCDs, continue Coumadin with INR trending with hold parameters as needed. #13. CODE STATUS: DNR CCA, no intubation. Charges/Coding Visit Charges Inpatient E&M: 39743 Subs Hosp L2
[2021-04-11 07:04] LABS: International Normalized Ratio 1.8; Prothrombin Time (Protime)PT. 19.9 SECONDS (11.7-14.9)
[2021-04-11 07:16] LABS: ALB/GLOB Ratio 0.7 RATIO (0.9-2.4); AST(SGOT) 10 U/L (15-37); Alanine Aminotransfer ALT/SGPT 21 U/L (13-56); Albumin, Serum 2.7 g/dL (3.2-5.0); Alkaline Phosphatase 99 U/L (45-117); Anion Gap 6 (5-15); BUN 14 mg/dL (7-18); BUN/Creat Ratio 19.9 RATIO (10-20); Calcium,Total 9.5 mg/dL (8.5-10.1); Chloride 97 mmol/L (98-107); EST Glomerular Filtration Rate 88 mL/min (>60); Est Glom Filt Rate - Afr Amer 107 mL/min (>60); Estimated Creatinine Clearance 47.14 ml/min; Globulin 3.9 g/dL (2.2-4.2); Glucose 215 mg/dL (74-106); Protein, Total 6.6 g/dL (6.4-8.2); Sodium Level 134 mmol/L (136-145)
[2021-04-11] MEDS: Budesonide Respules 0.5 MG/2 ML AMPUL.NEB. INHALATION ×2 (07:16→18:41)
[2021-04-11] MEDS: Ipratropium/Albuterol Sulfate 3 ML AMPUL.NEB INHALATION ×3 (07:16→18:41)
[2021-04-11 08:10] LABS: Bedside Glucose 204 mg/dL (70-110)
[2021-04-11] MEDS: Potassium Chloride Oral Tablet 20 MEQ PO ×3 (08:50→18:49)
--- NOTE | 2021-04-11 08:50 | CASEMGMT ---
Addendum entered by Ariane Garcia 04/11/21 11:03: MIRANDA updated that pt was approved Leave of Absence for her eye appointment today but not the COVID Booster. Pt can get Booster shot on day of discharge. MIRANDA placed a call to pt's daughter Elizabeth and updated her that pt can go to eye appointment today only, not the Booster appointment, but pt can get Booster shot on day of discharge. Elizabeth states pt's eye appointment is at 2:45pm so she will be at [facility] around 2:15pm to transport pt. Original Note: Social Work Note SW received message from pt's daughter Elizabeth asking if approval was granted for her to take pt to her eye appointment today. Elizabeth states that pt also has her booster vaccine appointment at 6:00pm [facility] and asked if she could also take pt to that. MIRANDA spoke with sugar refinery supervisor and updated her. Ariane Garcia GUIDANCE SERVICES COORDINATOR, MUNITIONS WORKER
[2021-04-11] MEDS: SILDENAFIL CITRATE 20 MG TABLET 60 MG PO ×3 (08:52→20:23)
[2021-04-11] MEDS: dilTIAZem CD 180 MG Capsule 360 MG PO (08:53)
[2021-04-11] MEDS: Spironolactone 50 MG Tablet PO (08:53)
[2021-04-11] MEDS: Furosemide 40 MG Tablet PO ×2 (08:54→18:50)
[2021-04-11] MEDS: Tolterodine Tartrate 2 MG CAP.SA PO (08:54)
[2021-04-11] MEDS: Cefdinir 300 MG Capsule PO ×2 (08:55→20:24)
[2021-04-11] MEDS: Pantoprazole Sodium 40 MG Tablet PO (08:56)
[2021-04-11] MEDS: OLANZapine 5 MG/TAB TAB.RAPDIS PO (08:56)
--- NOTE | 2021-04-11 09:34 | CASEMGMT ---
Addendum entered by Ariane Garcia 04/11/21 16:32: Pre-cert is still pending. Original Note: Social Work Note SW placed a call to Ann at [facility] and updated her that pt is ready for discharge once pre-cert is obtained. Plan: [facility] pending pre-cert Ariane Garcia LABORER [employer]SE, TECHNICAL COMMUNICATOR
[2021-04-11] MEDS: Ferrous Sulfate 325 MG Tablet PO (11:49)
[2021-04-11] MEDS: Glucerna Shake 120 ML LIQUID PO ×4 (11:53→20:25)
--- NOTE | 2021-04-11 14:01 | PCM.TXEXTCAR ---
Diet 04/07/21 08:40 Diet: Cardiac: Calorie-Controlled Is pt able to select menu?: Yes How many daily calories?: 1800 calorie Routine Orders/Code Status Enema Type: Fleetz Enema Frequency: Daily PRN Suppository Type: Dulcolax 10mg Suppository Frequency: Daily PRN O2 Liters per Minute: 4L but alter as needed to maintain appropriate saturations. O2 Frequency: Continuous Keep PO Greater than or Equal to (%): 92 Routine Lab Work: - (Repeat CBC, BMP within 1 week and as needed per facility physician discretion.) Code Status: DNRCC-A (DNR-CCA, no intubation.) Suggestions for Active Care Change Position every (hours): 2 Hours to sit in a chair: 4 Times a day to sit in chair: 3 Therapies Weight Bearing: Full weight bearing Extremity Affected:: Bilateral Lower Physical Therapy: Eval and Treat Occupational Therapy: Eval and Treat Problem/Diagnosis (1) Urinary tract infection: Status: Acute (2) Frequent falls: Status: Acute (3) Debility: Status: Acute Allergies/Procedures Done in Hospital Allergies nitroglycerin Adverse Reaction (Verified 04/06/21 19:21) Other PT UNABLE TO TAKE D/T SILFONAUREA Procedures: None Type of Care/Length of Stay Estimated LOS: Convalescent Care Less Than 30 days Type of Care Needed: Skilled Rehab Potential: Good Prognosis: Good Additional Orders/Day of Discharge Additional Orders: (1) Maintain fall precautions (2) Continue walker device usage (3) Encourage regular incentive spirometry 10x/hr at least 2-3 times daily (4) May benefit from outpatient counseling for anxiety with panic attack history Day of Discharge: 04/11/21 Dietary and Speech Recommendations Dietitian Recommendations/Changes: Will continue diet as ordered Will provide 4 oz glucerna shake w/ medpass 4x/day for increased mirian/pro if consumed. Discharge Plan Admission Admit Date/Time: 04/07/21 00:33 Primary Reason for Your Visit: Acute E. Coli UTI, FTT Adult Attending Provider: Alem Le Primary Care Provider: Jose Miguel Pedraza Instructions Patient Instructions: Urinary Tract Infections in Women, Understanding Urinary Tract ... Additional Instructions / Restrictions: DISCHARGE INSTRUCTIONS/INFORMATION: Please continue antibiotic therapy to completion with last dose 04/13/21 evening. During the admission your oxygen therapy which upon admission per report was 6L resting and 6.5L with activity was able to be reduced with both activity and resting. Please follow-up as previously arranged with your Pulmonary physician. Discharge Orders/Prescriptions Prescriptions: New cefdinir 300 mg Capsule 300 mg PO Q12 2 Days Qty: 4 RF: 0 Continued sildenafil 25 mg tablet 25 mg PO DAILY PRN (Reason: Sob &/Or Wheezing) RF: 0 pravastatin 40 mg tablet 40 mg PO QHS Qty: 90 RF: 3 ambrisentan 10 MG tablet 10 mg PO DAILY RF: 0 Spiriva with HandiHaler 18 mcg capsule, w/inhalation device 1 mcg INHALATION DAILY RF: 0 warfarin 3 mg tablet 3 mg PO DAILY RF: 0 ferrous sulfate 325 mg (65 mg iron) Tablet 325 mg PO DAILY RF: 0 diltiazem HCl [Matzim LA] 360 mg Tablet Extended Release 24 Hr 360 mg PO DAILY RF: 0 Oxygen, Home [Home Oxygen] 6 l NASAL CONT Qty: 0 RF: 0 alprazolam 0.5 mg Tablet 0.5 mg PO BID PRN (Reason: Anxiety) 5 Days Qty: 10 RF: 0 albuterol sulfate 90 mcg/actuation HFA aerosol inhaler 1 puff INHALATION Q6H PRN (Reason: bronchospasm) Qty: 8.5 RF: 3 budesonide-formoterol [Symbicort] 160-4.5 mcg/actuation HFA aerosol inhaler 2 puff INHALATION BID 90 Days Qty: 3 RF: 6 tolterodine 2 mg capsule,extended release 24hr 2 mg PO DAILY Qty: 90 RF: 3 furosemide 40 mg tablet 40 mg PO BID Qty: 180 RF: 2 spironolactone 50 mg tablet 50 mg PO DAILY Qty: 90 RF: 3 omeprazole 40 mg capsule,delayed release(DR/EC) 40 mg PO DAILY Qty: 90 RF: 3 potassium chloride [Klor-Con M20] 20 mEq tablet,ER particles/crystals See Rx Instructions .ROUTE .COMPLEX Qty: 270 RF: 3 olanzapine 5 mg tablet 5 mg PO DAILY Qty: 90 RF: 1 Referrals / Follow Up: Jose Miguel Pedraza DO [Primary Care Provider] - (Follow-up with PCP within 3-5 days hospital discharge and within 1-2 days SNF discharge.) Disposition Disposition (needs filled in before D/C Order can be placed): [facility] Facility
--- NOTE | 2021-04-11 14:20 | NURSING ---
PT LEFT FOR EYE APPT, AUTHORIZED BY
[2021-04-11] MEDS: Pravastatin 40 MG Tablet PO (20:24)
[2021-04-12 02:37] VITALS: BP 134/58; PULSE 72; RESP 18; TEMP 36.4; O2SAT 92
[2021-04-12 05:51] LABS: Absolute Lymphocyte Count 1.32 X10^3/uL (0.83-4.51); Absolute Neutrophil Count 9.3 X10^3/uL (2.0-7.7); Basophil# 0.04 X10^3/uL; Basophil% 0.3 % (0-1); Eosinophil# 0.18 X10^3/uL; Eosinophils% 1.5 % (0-5); Hematocrit 41.4 % (37-47); Hemoglobin 13.6 g/dL (12.0-15.0); Lymphocyte # 1.32 X10^3/ul (0.83-4.51); Lymphocyte % 11.3 % (19-41); Mean Corp Hgb Conc 32.9 g/dL (32-36); Mean Corpuscular Hgb 27.8 pg (27.0-32.0); Mean Corpuscular Volume 84.7 fL (81-99); Mean Platelet Vol. 9.7 fl (6.2-12.0); Monocyte# 0.74 X10^3/uL; Monocyte% 6.3 % (0-10); NRBC Flagged by Analyzer 0 % (0-5); Neutrophil # 9.31 X10^3/uL (2.7-7.7); Neutrophil % 79.7 % (47-70); Platelet Count 267 K/mm3 (150-450); RBC Distribution Width CV 14.1 % (11.6-14.6); RBC Distribution Width SD 43.2 fl (35.1-43.9); Red Blood Count 4.89 M/mm3 (4.2-5.4); White Blood Count 11.7 K/mm3 (4.4-11.0)
[2021-04-12 06:01] LABS: International Normalized Ratio 1.8; Prothrombin Time (Protime)PT. 20.1 SECONDS (11.7-14.9)
[2021-04-12 06:34] LABS: ALB/GLOB Ratio 0.7 RATIO (0.9-2.4); AST(SGOT) 11 U/L (15-37); Alanine Aminotransfer ALT/SGPT 22 U/L (13-56); Albumin, Serum 2.8 g/dL (3.2-5.0); Alkaline Phosphatase 98 U/L (45-117); Anion Gap 6 (5-15); BUN 17 mg/dL (7-18); BUN/Creat Ratio 25.1 RATIO (10-20); Calcium,Total 9.8 mg/dL (8.5-10.1); Chloride 98 mmol/L (98-107); Creatinine, Serum 0.68 mg/dL (0.55-1.02); EST Glomerular Filtration Rate 92 mL/min (>60); Est Glom Filt Rate - Afr Amer 112 mL/min (>60); Estimated Creatinine Clearance 47.14 ml/min; Globulin 3.8 g/dL (2.2-4.2); Glucose 183 mg/dL (74-106); Potassium 4.2 mmol/L (3.5-5.1); Protein, Total 6.6 g/dL (6.4-8.2); Sodium Level 134 mmol/L (136-145)
[2021-04-12] MEDS: Budesonide Respules 0.5 MG/2 ML AMPUL.NEB. INHALATION (07:14)
[2021-04-12] MEDS: Ipratropium/Albuterol Sulfate 3 ML AMPUL.NEB INHALATION (07:14)
[2021-04-12 07:18] VITALS: PULSE 75; RESP 18; O2SAT 94
[2021-04-12 09:12] VITALS: BP 144/60; PULSE 86; RESP 18; TEMP 36.7; O2SAT 95
[2021-04-12] MEDS: Potassium Chloride Oral Tablet 20 MEQ PO ×2 (09:15→12:45)
[2021-04-12] MEDS: SILDENAFIL CITRATE 20 MG TABLET 60 MG PO (09:17)
--- NOTE | 2021-04-12 09:21 | CASEMGMT ---
Addendum entered by Ariane Garcia 04/12/21 10:43: MIRANDA faxed discharge paperwork to [facility] including transfer to extended care facility, signed medication list, any scripts, COVID tool. Original in SNF folder and copy on pt's chart. SW to fax COVID test from today once resulted. SW completed convalescent 7000 in [facility]. Orignal in SNF folder and copy on pt's chart. MIRANDA placed a call to pt's daughter Elizabeth. SW updated Elizabeth that pre-cert has been obtained and pt is to discharge to [facility] today. Elizabeth states she is able to transport pt to [facility] and can be at [facility] at 1:00pm. SW in to speak with pt. SW informed pt that pre-cert for [facility] has been obtained, pt to discharge to [facility] today. MIRANDA informed pt that pt's daughter Elizabeth will be transporting pt to [facility] at 1:00pm today. Pt asked if her other daughter will be able to visist pt at [facility] and this worker informed her that this worker is not sure of [facility] visitation policy, encouraged pt and Elizabeth to ask when pt arrives at [facility]. Pt states understanding. MIRANDA updated RN on transportation time and that pt will need COVID test. MIRANDA placed a call to Ann at [facility] and left message updating her on transportation time. Plan: [facility] skilled today under convalescent stay with pt's daughter Elizabeth transporting pt at 1:00pm via private vehicle BONIFACIO Funk Addendum entered by Ariane Garcia 04/12/21 10:11: MIRANDA received call from Ann at [facility] stating pre-cert was obtained, pt can discharge to [facility] today. Pt will need another COVID test. MIRANDA asked Ann about pt's family transporting pt and Ann states pt's family is able to transport pt. MIRANDA updated physician. Original Note: Social Work Note MIRANDA placed a call to Ann at [facility] and left message inquiring about pt's pre-cert. Pt is medically ready for discharge once pre-cert is obtained. Plan: [facility] pending pre-cert RENETTA FunkW
[2021-04-12] MEDS: OLANZapine 5 MG/TAB TAB.RAPDIS PO (09:25)
[2021-04-12] MEDS: Spironolactone 50 MG Tablet PO (09:25)
[2021-04-12] MEDS: Tolterodine Tartrate 2 MG CAP.SA PO (09:25)
[2021-04-12] MEDS: Furosemide 40 MG Tablet PO (09:25)
[2021-04-12] MEDS: Pantoprazole Sodium 40 MG Tablet PO (09:25)
[2021-04-12] MEDS: dilTIAZem CD 180 MG Capsule 360 MG PO (09:26)
[2021-04-12] MEDS: Cefdinir 300 MG Capsule PO (09:27)
[2021-04-12] MEDS: Glucerna Shake 120 ML LIQUID PO (09:32)
[2021-04-12] MEDS: ALPRAZolam 0.5 MG Tablet PO (09:37)
--- NOTE | 2021-04-12 09:58 | DS.PCM_ITS ---
Providers Date of Admission: 04/07/21 Primary Care Physician: Dr. Jose Miguel Pedraza, DO Reason For Visit: UTI, DEBILITY Diagnosis Discharge Diagnosis (1) Urinary tract infection: Status: Acute Code(s): N39.0 - Urinary tract infection, site not specified Qualifiers: Hematuria presence: without hematuria Urinary tract infection type: site unspecified Qualified Code(s): N39.0 - Urinary tract infection, site not specified Medications at Discharge Home Medications ambrisentan 10 mg PO DAILY 04/21/16 albuterol sulfate 90 mcg/actuation aerosol inhaler 1 puff INHALATION Q6H PRN #8.5 gm 09/23/18 sildenafil 25 mg tablet 25 mg PO DAILY PRN 02/22/20 budesonide-formoterol HFA 160 mcg-4.5 mcg/actuation aerosol inhaler 2 puff INHALATION BID 90 Days #3 each 05/08/20 tolterodine 2 mg capsule,extended release 24 hr 2 mg PO DAILY #90 cap 08/27/20 furosemide 40 mg tablet 40 mg PO BID #180 tablet 09/04/20 omeprazole 40 mg capsule,delayed release 40 mg PO DAILY #90 cap 10/01/20 spironolactone 50 mg tablet 50 mg PO DAILY #90 tablet 10/01/20 potassium chloride 20 mEq tablet,extended release(part/cryst) See Rx Instructions .ROUTE .COMPLEX #270 tablet 11/22/20 pravastatin 40 mg tablet 40 mg PO QHS #90 tablet 01/29/21 olanzapine 5 mg tablet 5 mg PO DAILY #90 tab 03/06/21 Spiriva with HandiHaler 1 mcg INHALATION DAILY 04/01/21 warfarin 3 mg PO DAILY 04/01/21 diltiazem HCl [Matzim LA] 360 mg PO DAILY 04/07/21 ferrous sulfate 325 mg PO DAILY 04/07/21 Oxygen, Home [Home Oxygen] 6 l NASAL CONT #0 04/11/21 alprazolam 0.5 mg PO BID PRN 5 Days #10 tab 04/11/21 cefdinir 300 mg PO Q12 2 Days #4 cap 04/11/21 Hospital Course Operations None Procedures EKG Summary of Care Provided Minutes Spent on Discharge: 35 Hospital Course: DISCHARGE NOTE: Discharge Diagnoses: #1. Acute E. Coli Urinary Tract Infection #2. Failure to thrive, adult #3. PAF #4. Chronic COPD with chronic hypoxic respiratory failure complicated by pulmonary hypertension #5. History of PE with lupus anticoagulant disorder #6. Anxiety and depression/claustrophobia #7. Hypertension #8. Obesity #9. Hyperlipidemia #10. Former tobacco usage #11. GERD #12. CODE STATUS: DNR CCA, no intubation. Discharge Summary: The patient is a 66 y/o F w/ PMHx: Obesity, Lupus anticoagulant disorder with Hx PE, PAF, Anxiety and Depression, Former Tobacco use, Chronic COPD (severe) with Chronic Hypoxic Respiratory Failure complicated by pulmonary hypertension (6L rest and 6.5L with activity) who presentED to the [facility] ED on 04/07/21 w/ history of increasing fatigue, malaise and inability to care for herself, worsening over the last 6 weeks with family unable to manage her with patient recent onset of dizziness and chronic vision changes with already in place aggressive ophthalmology follow-up with recent difficulty with urination, dysuria prompting ED evaluation. Patient admitted to medical surgical floor, upon ED evaluation remarkable, Urine culture finalization with 50,000- 80,000 E. coli and although not greater than 100,000 colony-forming units patient was symptomatic therefore continued treatment, sensitivities resulted with appropriate sensitivity to cephalosporins, transitionED to cefdinir to completion. Patient during admission with ability to wean from home reported chronic 6 L at rest and 6.5 L with activity down to 4 L currently inpatient, continued on letairis and sildenafil, budesonide as well as as needed albuterol regimen in addition to scheduled DuoNeb therapies, encourage head of bed and I-S usage. Encouraged her given her history to avoid inappropriate over oxygenation. PT/OT, CM consulted and patient once bed and precertification obtained discharged to SNF. Discharge Time: > 35 Minutes DAY OF DISCHARGE PROGRESS NOTE: Subjective: Patient without acute event overnight per self and nursing report. Patient noted feeling improved with no anxiety overnight which she had had the day prior. Patient denies fever, chills, nausea, emesis, abdominal pain, chest pain or dyspnea. Patient agreeable to discharge to SNF. Patient will be discharged with follow-up with primary care physician upon SNF transition and discharge. Objective: T 97.6, HR 72, BP 134/58, RR 18, 92% on 4L. Physical Examination: General: awake, alert, oriented x 3 and cooperative, seated upright in bed, no acute distress. Skin: normal color, turgor, no icterus, cyanosis. HEENT: AT/NC, EOMI, PERRLA, MMM. Lungs: Remains diminished, greater bases, appropriate effort, on significantly high amounts of chronic oxygen, no rales, ronchi or wheezing. Heart: Regular rate and rhythm; no gallop, rub audible. Abdomen: soft, obesity, NTTP, ND, normal BS. Extremities: no cyanosis, clubbing, or edema. Neurological: patient awake, alert, oriented as noted; cognitive function suspect baseline intact but does have odd flat affect; pupils equally reactive to light and accommodation; cranial nerves II-XII grossly normal, moving all 4 extremities, no focal deficits, strength moderately globally decreased suspect secondary to underlying comorbidities primarily and acutely worsened by acute presentation. Psychiatric: affect appears improved, no acute evidence of depressive or anxiety feelings. Assessment and Plan: Please see hospital summary above. Weight / BMI Weight Weight: 185 lb 6.54 oz Body Mass Index (BMI) 31.6 ABG / Lab / Microbiology Data Result Diagrams: 04/12/21 05:02 04/12/21 05:02 Laboratory: Laboratory Results - last 24 hr 04/12/21 05:02: WBC 11.7 H, RBC 4.89, Hgb 13.6, Hct 41.4, MCV 84.7, MCH 27.8, MCHC 32.9, RDW Std Deviation 43.2, RDW Coeff of Brittany 14.1, Plt Count 267, MPV 9.7, Immature Gran % (Auto) 0.900, Neut % (Auto) 79.7 H, Lymph % (Auto) 11.3 L, [place] % (Auto) 6.3, Eos % (Auto) 1.5, Baso % (Auto) 0.3, Absolute Neuts (auto) 9.3 H, Absolute Lymphs (auto) 1.32, Nucleated RBC % 0 04/12/21 05:02: PT 20.1 H, INR 1.8 04/12/21 05:02: Sodium 134 L, Potassium 4.2, Chloride 98, Carbon Dioxide 30.0, Anion Gap 6, BUN 17, Creatinine 0.68, Estim Creat Clear Calc 47.14, Est GFR (MDRD) Af Amer 112, Est GFR (MDRD) Non-Af 92, BUN/Creatinine Ratio 25.1 H, Glucose 183 H, Calcium 9.8, Total Bilirubin 0.40, AST 11 L, ALT 22, Alkaline Phosphatase 98, Total Protein 6.6, Albumin 2.8 L, Globulin 3.8, Albumin/Globulin Ratio 0.7 L Microbiology: Microbiology 04/06/21 21:03 Urine, Clean Catch Urine Culture - Final Escherichia coli 04/06/21 20:26 Nasal Secretion SARS-CoV-2 Antigen (Rapid) - Final Meaningful Use Info Meaningful Use Diagnoses (Choose all that apply): None applicable Discharge Plan Admission Admit Date/Time: 04/07/21 00:33 Primary Reason for Your Visit: Acute E. Coli UTI, FTT Adult Attending Provider: Alem Le Primary Care Provider: Jose Miguel Pedraza Instructions Patient Instructions: Urinary Tract Infections in Women, Understanding Urinary Tract ... Additional Instructions / Restrictions: DISCHARGE INSTRUCTIONS/INFORMATION: Please continue antibiotic therapy to completion with last dose 04/13/21 evening. During the admission your oxygen therapy which upon admission per report was 6L resting and 6.5L with activity was able to be reduced with both activity and resting. Please follow-up as previously arranged with your Pulmonary physician. Discharge Orders/Prescriptions Prescriptions: New cefdinir 300 mg Capsule 300 mg PO Q12 2 Days Qty: 4 RF: 0 Continued sildenafil 25 mg tablet 25 mg PO DAILY PRN (Reason: Sob &/Or Wheezing) RF: 0 pravastatin 40 mg tablet 40 mg PO QHS Qty: 90 RF: 3 ambrisentan 10 MG tablet 10 mg PO DAILY RF: 0 Spiriva with HandiHaler 18 mcg capsule, w/inhalation device 1 mcg INHALATION DAILY RF: 0 warfarin 3 mg tablet 3 mg PO DAILY RF: 0 ferrous sulfate 325 mg (65 mg iron) Tablet 325 mg PO DAILY RF: 0 diltiazem HCl [Matzim LA] 360 mg Tablet Extended Release 24 Hr 360 mg PO DAILY RF: 0 Oxygen, Home [Home Oxygen] 6 l NASAL CONT Qty: 0 RF: 0 alprazolam 0.5 mg Tablet 0.5 mg PO BID PRN (Reason: Anxiety) 5 Days Qty: 10 RF: 0 albuterol sulfate 90 mcg/actuation HFA aerosol inhaler 1 puff INHALATION Q6H PRN (Reason: bronchospasm) Qty: 8.5 RF: 3 budesonide-formoterol [Symbicort] 160-4.5 mcg/actuation HFA aerosol inhaler 2 puff INHALATION BID 90 Days Qty: 3 RF: 6 tolterodine 2 mg capsule,extended release 24hr 2 mg PO DAILY Qty: 90 RF: 3 furosemide 40 mg tablet 40 mg PO BID Qty: 180 RF: 2 spironolactone 50 mg tablet 50 mg PO DAILY Qty: 90 RF: 3 omeprazole 40 mg capsule,delayed release(DR/EC) 40 mg PO DAILY Qty: 90 RF: 3 potassium chloride [Klor-Con M20] 20 mEq tablet,ER particles/crystals See Rx Instructions .ROUTE .COMPLEX Qty: 270 RF: 3 olanzapine 5 mg tablet 5 mg PO DAILY Qty: 90 RF: 1 Referrals / Follow Up: Jose Miguel Pedraza DO [Primary Care Provider] - (Follow-up with PCP within 3-5 days hospital discharge and within 1-2 days SNF discharge.) Disposition Disposition (needs filled in before D/C Order can be placed): [facility] Facility Charges/Coding Visit Charges Inpatient E&M: 97659 Disch Hosp
--- NOTE | 2021-04-12 10:41 | PHA.DC.MR ---
Pharmacy Service has performed discharge medication reconciliation for this patient upon transfer to [facility]. Home Medications ambrisentan 10 mg PO DAILY 04/21/16 albuterol sulfate 90 mcg/actuation aerosol inhaler 1 puff INHALATION Q6H PRN #8.5 gm 09/23/18 sildenafil 25 mg tablet 25 mg PO DAILY PRN 02/22/20 budesonide-formoterol HFA 160 mcg-4.5 mcg/actuation aerosol inhaler 2 puff INHALATION BID 90 Days #3 each 05/08/20 tolterodine 2 mg capsule,extended release 24 hr 2 mg PO DAILY #90 cap 08/27/20 furosemide 40 mg tablet 40 mg PO BID #180 tablet 09/04/20 omeprazole 40 mg capsule,delayed release 40 mg PO DAILY #90 cap 10/01/20 spironolactone 50 mg tablet 50 mg PO DAILY #90 tablet 10/01/20 potassium chloride 20 mEq tablet,extended release(part/cryst) See Rx Instructions .ROUTE .COMPLEX #270 tablet 11/22/20 pravastatin 40 mg tablet 40 mg PO QHS #90 tablet 01/29/21 olanzapine 5 mg tablet 5 mg PO DAILY #90 tab 03/06/21 Spiriva with HandiHaler 1 mcg INHALATION DAILY 04/01/21 warfarin 3 mg PO DAILY 04/01/21 diltiazem HCl [Matzim LA] 360 mg PO DAILY 04/07/21 ferrous sulfate 325 mg PO DAILY 04/07/21 Oxygen, Home [Home Oxygen] 6 l NASAL CONT #0 04/11/21 alprazolam 0.5 mg PO BID PRN 5 Days #10 tab 04/11/21 cefdinir 300 mg PO Q12 2 Days #4 cap 04/11/21 The patient's discharge medication list was reviewed for discrepancies and discrepancies were resolved.
[2021-04-12 11:24] VITALS: O2SAT 94
--- NOTE | 2021-04-12 12:03 | CASEMGMT ---
Social Work Note SW faxed COVID test to [facility], placed in pt's [facility] folder. 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
[2021-04-12] MEDS: Ferrous Sulfate 325 MG Tablet PO (12:45)
[2021-04-12 12:51] VITALS: BP 135/58; PULSE 88; RESP 18; TEMP 36.9; O2SAT 96
--- NOTE | 2021-04-12 13:12 | NURSING ---
report called and [facility]
== END 2021-04-12 13:22 | disposition skilled nursing facility (03) | DRG 690 ==
LOC: ED 23:40 → MS3 04-07 01:51
PROVIDERS: Admitting Provider Hospitalist; Emergency Provider Emergency Medicine; PCP Family Medicine; Visit Provider Family Medicine
DX: N39.0 Urinary tract infection, site not specified (principal); D68.62 Lupus anticoagulant syndrome; E87.1 Hypo-osmolality and hyponatremia; J96.11 Chronic respiratory failure with hypoxia; D68.9 Coagulation defect, unspecified; B96.20 Unspecified Escherichia coli [E. coli] as the cause of diseases classified elsewhere; I27.20 Pulmonary hypertension, unspecified; R29.6 Repeated falls; J44.9 Chronic obstructive pulmonary disease, unspecified; R62.7 Adult failure to thrive; I48.0 Paroxysmal atrial fibrillation; F41.0 Panic disorder [episodic paroxysmal anxiety]; Z66 Do not resuscitate; K21.9 Gastro-esophageal reflux disease without esophagitis; E78.5 Hyperlipidemia, unspecified; E66.9 Obesity, unspecified; I12.9 Hypertensive chronic kidney disease with stage 1 through stage 4 chronic kidney disease, or unspecified chronic kidney disease; F40.240 Claustrophobia; F32.A Depression, unspecified; N18.31 Chronic kidney disease, stage 3a; E11.9 Type 2 diabetes mellitus without complications; Z86.711 Personal history of pulmonary embolism; Z87.891 Personal history of nicotine dependence; Z68.32 Body mass index [BMI] 32.0-32.9, adult; Z79.01 Long term (current) use of 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; Z79.51 Long term (current) use of inhaled steroids; Z82.0 Family history of epilepsy and other diseases of the nervous system; Z82.49 Family history of ischemic heart disease and other diseases of the circulatory system; Z82.5 Family history of asthma and other chronic lower respiratory diseases; Z85.820 Personal history of malignant melanoma of skin; Z90.49 Acquired absence of other specified parts of digestive tract; Z86.73 Personal history of transient ischemic attack (TIA), and cerebral infarction without residual deficits
CPT/HCPCS: 36415; 71046; 80053; 81001; 82962; 83690; 84484; 85025; 85610; 87077; 87086; 87088; 87186; 87426; 93005; 94640; 97110; 97162; 97165; 97530; 97535; 97802; 99251; 99284; J7030; J7050; A4216; G0463

== ENCOUNTER 2021-05-22 16:52 | Outpatient (RCR) | payer MEDICARE, SELFPAY ==
[2021-04-10 04:05] VITALS: BMI 33.6
[2021-05-22 18:29] LABS: Prothrombin Time (Protime)PT. 21.5 SECONDS (11.7-14.9)
== END 2021-06-10 18:00 | disposition home or self-care (01) ==
LOC: MTLAB 16:52
PROVIDERS: Family Provider Family Medicine; PCP Family Medicine; Referring Provider Nurse Practitioner Family; Visit Provider Nurse Practitioner Family
DX: Z79.01 Long term (current) use of 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 (principal)
CPT/HCPCS: 36415; 85610

== ENCOUNTER 2021-06-19 15:33 | Outpatient (RCR) | payer MEDICARE, SELFPAY ==
[2021-06-11 01:40] VITALS: BMI 33.6
[2021-06-19 15:39] LABS: Mucous, Urine 0 SEEN /hpf (<or=2+); Squamous Epithelial Cells - UA 0 SEEN /hpf (5-10)
[2021-06-19 16:58] LABS: Color, Urine Yellow (Yellow); Glucose, Dipstick 50 mg/dl (Normal); Ketone-Dipstick Negative (Negative); Leukocyte Esterase-Dipstick 500 /ul (Negative); Nitrite-Dipstick Negative (Negative); Occult Blood-Urine 250 /ul (Negative); Protein-Dipstick 100 mg/dl (Negative); Urine Bilirubin Dipstick Negative (Negative); Urine Clarity Cloudy (Clear); Urine Urobilinogen Normal (Normal)
[2021-06-19 17:17] LABS: International Normalized Ratio 2.5
[2021-06-19 17:22] LABS: Red Blood Cells-Urine > 100 SEEN /hpf (0-5)
[2021-06-19 17:23] LABS: Bacteria 1+ /hpf (None Seen); White Blood Cells >100 SEEN /hpf (0-5)
== END 2021-07-08 23:59 ==
LOC: BIMLAB 15:33
PROVIDERS: Family Provider Family Medicine; PCP Family Medicine; Referring Provider Nurse Practitioner Family; Visit Provider Nurse Practitioner Family
DX: Z79.01 Long term (current) use of 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 (principal)
CPT/HCPCS: 36415; 81001; 85610

== ENCOUNTER 2021-08-01 16:37 | Outpatient (RCR) | payer MEDICARE, SELFPAY ==
[2021-07-09 00:39] VITALS: BMI 33.6
[2021-08-01 17:47] LABS: International Normalized Ratio 2.1
== END 2021-08-08 18:00 | disposition home or self-care (01) ==
LOC: MTLAB 16:37
PROVIDERS: Family Provider Family Medicine; PCP Family Medicine; Referring Provider Nurse Practitioner Family; Visit Provider Nurse Practitioner Family
DX: Z79.01 Long term (current) use of 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 (principal)
CPT/HCPCS: 36415; 85610

== ENCOUNTER 2021-08-12 21:31 | Emergency (ER) | payer MEDICARE, SELFPAY ==
[2021-08-12 21:31] VITALS: BP 158/64; PULSE 101; RESP 20; TEMP 37.4; O2SAT 92; BMI 32.5
[2021-08-12 21:53] VITALS: O2SAT 94
--- NOTE | 2021-08-12 22:40 | RAD_ITS ---
INDICATION: cough EXAMINATION/TECHNIQUE: X-RAY - XR Chest 2 Views COMPARISON: 04/06/2021. FINDINGS: LUNGS: Relative prominent interstitial lung markings bilaterally especially left perihilar and right lung base, not significantly changed. No consolidation. No pneumothorax. MEDIASTINUM: Unremarkable. CARDIAC SILHOUETTE: Not enlarged. BONES AND SOFT TISSUES: No acute abnormalities. IMPRESSION: Relatively stable mild interstitial pattern possibly chronic scarring. No acute infiltrates. Electronically Signed: Alesha Mena MD at 22:59 EDT , RAD/Chest PA and Lateral
[2021-08-12] MEDS: Sodium Chloride 3% 500 ML IV.SOLN. INHALATION (22:48)
[2021-08-12] MEDS: dexAMETHasone 10 MG/ML Vial PO.IVFORM (23:07)
[2021-08-12] MEDS: Ipratropium/Albuterol Sulfate 3 ML AMPUL.NEB INHALATION (23:44)
[2021-08-12 23:45] VITALS: PULSE 93; RESP 17
[2021-08-13 00:07] VITALS: BP 147/55; PULSE 104; RESP 15; O2SAT 93
--- NOTE | 2021-08-13 00:13 | EDS_ITS ---
HPI History of Present Illness Chief Complaint: Shortness of Breath Narrative Narrative: Patient is a 66-year-old female with past medical history of COPD and pulmonary hypertension. She wears 4 L of nasal cannula oxygen 01/12. She states that she has had some drainage and congestion and that today she had an event where she felt she was choking. She states this made her feel very short of breath for approximately 30 seconds until she was able to remove what ever was causing her choking sensation. Secondary to this sensation she presents for evaluation [facility] Medical History Anxiety Atrial fibrillation Claustrophobia COPD (chronic obstructive pulmonary disease) Depression Former smoker Lupus anticoagulant disorder Osteoporosis Primary pulmonary hypertension (PPH) Pulmonary arterial hypertension Pulmonary embolism TIA (transient ischemic attack) Type 2 diabetes mellitus Urinary tract infection Home Medications ambrisentan 10 mg PO DAILY 04/21/16 [History Last Taken Unknown] albuterol sulfate 90 mcg/actuation aerosol inhaler 1 puff INHALATION Q6H PRN #8.5 gm 09/23/18 [Rx Last Taken Unknown] furosemide 40 mg tablet 40 mg PO BID #180 tablet 09/04/20 [Rx Last Taken Unknown] omeprazole 40 mg capsule,delayed release 40 mg PO DAILY #90 cap 10/01/20 [Rx Last Taken Unknown] pravastatin 40 mg tablet 40 mg PO QHS #90 tablet 01/29/21 [Rx Last Taken Unknown] Spiriva with HandiHaler 1 mcg INHALATION DAILY 04/01/21 [History Last Taken Unknown] diltiazem HCl [Matzim LA] 360 mg PO DAILY 04/07/21 [History Last Taken Unknown] ferrous sulfate 325 mg PO DAILY 04/07/21 [History Last Taken Unknown] Oxygen, Home [Home Oxygen] 6 l NASAL CONT #0 04/11/21 [Rx Last Taken Unknown] budesonide-formoterol HFA 160 mcg-4.5 mcg/actuation aerosol inhaler 2 puff INHALATION BID 90 Days #3 each 05/15/21 [Rx Last Taken Unknown] olanzapine 5 mg tablet 5 mg PO DAILY #90 tab 05/15/21 [Rx Last Taken Unknown] warfarin 3 mg tablet 3 mg PO DAILY #90 tab 05/15/21 [Rx Last Taken Unknown] metformin 500 mg tablet,extended release 24 hr 1,000 mg PO QDAY #180 tablet 05/29/21 [Rx Last Taken Unknown] warfarin 4 mg tablet 4 mg PO .COMPLEX #30 tab 05/29/21 [Rx Last Taken Unknown] tolterodine 2 mg capsule,extended release 24 hr 2 mg PO DAILY #90 cap 06/21/21 [Rx Last Taken Unknown] glipizide 2.5 mg tablet, extended release 24 hr 2.5 mg PO DAILY #90 tab 07/02/21 [Rx Last Taken Unknown] sildenafil 60 mg TID 07/24/21 [History Last Taken Unknown] potassium 20 meq TID 08/01/21 [History Last Taken Unknown] prednisone 20 mg PO DAILY 5 Days #5 tab 08/13/21 [Rx Last Taken Unknown] Allergy/AdvReac Type Severity Reaction Status Date / Time nitroglycerin AdvReac Other Verified 08/12/21 21:35 Family History Mother COPD (chronic obstructive pulmonary disease) Cancer melanoma Father Heart disease Alcoholism Grandmother Cancer Grandfather Parkinsons disease Surgical History H/O colonoscopy H/O endoscopy history of bunion surgery History of cholecystectomy History of embolic filter insertion History of placement of ear tubes History of tonsillectomy Social History Smoking Status: Former smoker Tobacco: How many years used: 8 how long ago did patient quit smokin years alcohol intake: never substance use type: does not use what type of physical activity do you participate in: none ROS ROS ED Constitutional Constitutional ED: Denies chills or fever(s) ENT ENT ED: Reports rhinorrhea and sore throat Cardiovascular Cardiovascular: Denies chest pain Respiratory/Chest Respiratory/Chest: Reports cough and dyspnea Gastrointestinal Gastrointestinal: Denies abdominal pain, diarrhea, nausea or vomiting Genitourinary Genitourinary ED: Denies dysuria Musculoskeletal Musculoskeletal: Denies myalgias Integumentary Denies rash Neurologic Neurologic: Denies headache(s) Hematologic/Lymphatic Hematologic/Lymphatic: Reports easy bleeding and easy bruising EXAM Physical Exam Const Vital Signs: 08/12/21 21:31 08/12/21 21:53 08/12/21 23:45 Temperature 99.3 F H Temperature Source Temporal Pulse Rate 101 H 93 Respiratory Rate 20 H 17 Respiratory Effort Short of Breath Blood Pressure 158/64 H Blood Pressure Mean 95 Pulse Ox 92 Oxygen Delivery Method Nasal Cannula Nasal Cannula Oxygen Flow Rate (L/min) 4 3.5 08/13/21 00:07 Temperature Temperature Source Pulse Rate 104 H Respiratory Rate 15 Respiratory Effort Blood Pressure 147/55 H Blood Pressure Mean 85 Pulse Ox 93 Oxygen Delivery Method Nasal Cannula Oxygen Flow Rate (L/min) 4 Positive well nourished and well developed General Appearance ED: well developed HEENT Reports moist mucous membranes HEENT Narrative: Patient has cobblestoning the posterior pharynx consistent with sinus drainage but no oral lesions no tongue or lip swelling no airway edema or compromise Eyes PERRL and EOMs intact bilaterally Neck supple and no JVD Neck Narrative: No crepitance noted Chest Wall palpation of chest normal Resp normal respiratory effort and clear to auscultation bilaterally Cardio regular rate and regular rhythm Extremity normal to inspection Extremity Narrative: No asymmetric edema no pitting edema negative Homans' sign bilaterally Neuro oriented x3 and CN's II-XII intact bilaterally Sensorium / Orientation: alert Motor Exam: strength 5/5 throughout Psych Psych Narrative: Patient has a nervous/anxious affect Mood & Affect: anxious Skin no rashes or lesions noted MDM MDM MDM Narrative Medical decision making narrative: Patient presented to the ER satting in the mid 90s on her normal oxygen and she had no increased work of breathing. Her history is consistent with a mucous plug that has spontaneously resolved. At this time there is concern that she may have pneumonia based on her cough and shortness of breath I did elect to perform a chest x-ray. This revealed no acute findings. Patient was given oral steroids as well as breathing treatments and did report improvement of her symptoms. On reevaluation she is resting comfortably she remains in no acute respiratory distress and therefore be discharged at this time. Radiography Diagnostic Testing: Clinical Impression(s) from Imaging Studies Chest X-Ray 08/12/21 22:40 Chest x-ray as interpreted by the emergency medicine physician reveals chronic changes that are stable when compared to previous x-ray without acute infiltrate pneumothorax or pleural effusion Discharge Plan Triage Chief Complaint: Shortness of Breath ED Provider: Chau Cruz Dx/Rx/DC Orders Clinical Impression: Pulmonary arterial hypertension, Mucus plugging of bronchi Instructions: ED Bronchitis, No Antibiotic (Adult), ED Dyspnea Prescriptions: New prednisone 20 mg tablet 20 mg PO DAILY 5 Days Qty: 5 RF: 0 No Action pravastatin 40 mg tablet 40 mg PO QHS Qty: 90 RF: 3 budesonide-formoterol [Symbicort] 160-4.5 mcg/actuation HFA aerosol inhaler 2 puff INHALATION BID 90 Days Qty: 3 RF: 6 warfarin 3 mg tablet 3 mg PO DAILY Qty: 90 RF: 1 olanzapine 5 mg tablet 5 mg PO DAILY Qty: 90 RF: 1 ambrisentan 10 MG tablet 10 mg PO DAILY RF: 0 Spiriva with HandiHaler 18 mcg capsule, w/inhalation device 1 mcg INHALATION DAILY RF: 0 ferrous sulfate 325 mg (65 mg iron) Tablet 325 mg PO DAILY RF: 0 diltiazem HCl [Matzim LA] 360 mg Tablet Extended Release 24 Hr 360 mg PO DAILY RF: 0 Oxygen, Home [Home Oxygen] 6 l NASAL CONT Qty: 0 RF: 0 sildenafil 20 mg tablet 60 mg TID RF: 0 potassium 20 mEq tablet 20 meq TID RF: 0 albuterol sulfate 90 mcg/actuation HFA aerosol inhaler 1 puff INHALATION Q6H PRN (Reason: bronchospasm) Qty: 8.5 RF: 3 furosemide 40 mg tablet 40 mg PO BID Qty: 180 RF: 2 omeprazole 40 mg capsule,delayed release(DR/EC) 40 mg PO DAILY Qty: 90 RF: 3 warfarin 4 mg tablet 4 mg PO .COMPLEX Qty: 30 RF: 1 metformin 500 mg tablet extended release 24 hr 1,000 mg PO QDAY Qty: 180 RF: 1 tolterodine 2 mg capsule,extended release 24hr 2 mg PO DAILY Qty: 90 RF: 3 glipizide 2.5 mg tablet extended release 24 hr 2.5 mg PO DAILY Qty: 90 RF: 0 Primary Care Provider: Jose Miguel Pedraza Referrals: Jose Miguel Pedraza, DO [Primary Care Provider] - Disposition Disposition: Home, Self Care
[2021-08-13 00:30] VITALS: RESP 20
== END 2021-08-13 00:30 | disposition home or self-care (01) ==
PROVIDERS: Emergency Provider Emergency Medicine; PCP Family Medicine; Visit Provider Emergency Medicine
DX: I27.0 Primary pulmonary hypertension (principal); J44.9 Chronic obstructive pulmonary disease, unspecified; E11.9 Type 2 diabetes mellitus without complications; T17.590A Other foreign object in bronchus causing asphyxiation, initial encounter; Z87.891 Personal history of nicotine dependence; Z86.73 Personal history of transient ischemic attack (TIA), and cerebral infarction without residual deficits; Z99.81 Dependence on supplemental oxygen
CPT/HCPCS: 71046; 94640; 99283; J7040

== ENCOUNTER → 2021-08-28 | Outpatient (CLI) | payer MEDICARE, SELFPAY ==
[2021-08-28 17:13] LABS: International Normalized Ratio 2.3; Prothrombin Time (Protime)PT. 24.9 SECONDS (11.7-14.9)
== END | disposition home or self-care (01) ==
LOC: BIMLAB 15:42
PROVIDERS: PCP Family Medicine; Visit Provider Family Medicine
DX: D68.62 Lupus anticoagulant syndrome (principal)
CPT/HCPCS: 36415; 85610

== ENCOUNTER 2021-09-26 16:44 | Outpatient (RCR) | payer MEDICARE, SELFPAY ==
[2021-08-09 02:56] VITALS: BMI 33.6
[2021-09-26 17:59] LABS: International Normalized Ratio 2.4; Prothrombin Time (Protime)PT. 25.6 SECONDS (11.7-14.9)
== END 2021-09-26 18:00 | disposition home or self-care (01) ==
LOC: MTLAB 16:44
PROVIDERS: Family Provider Family Medicine; PCP Family Medicine; Referring Provider Nurse Practitioner Family; Visit Provider Nurse Practitioner Family
DX: Z79.01 Long term (current) use of 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 (principal)
CPT/HCPCS: 36415; 85610

== ENCOUNTER → 2021-11-05 | Outpatient (CLI) | payer MEDICARE, SELFPAY ==
[2021-11-05 10:50] LABS: International Normalized Ratio 2.2; Prothrombin Time (Protime)PT. 24.5 SECONDS (11.7-14.9)
== END | disposition home or self-care (01) ==
LOC: LAB 08:42
PROVIDERS: PCP Family Medicine; Visit Provider Family Medicine
DX: Z79.01 Long term (current) use of 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 (principal)
CPT/HCPCS: 36415; 85610

== ENCOUNTER 2021-12-31 16:41 | Outpatient (RCR) | payer MEDICARE, SELFPAY ==
[2021-10-08 21:42] VITALS: BMI 33.6
[2021-12-31 18:06] LABS: International Normalized Ratio 2.4; Prothrombin Time (Protime)PT. 25.8 SECONDS (11.7-14.9)
== END 2021-12-31 18:00 | disposition home or self-care (01) ==
LOC: MTLAB 16:41
PROVIDERS: Family Provider Family Medicine; PCP Family Medicine; Referring Provider Nurse Practitioner Family; Visit Provider Nurse Practitioner Family
DX: Z79.01 Long term (current) use of 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 (principal)
CPT/HCPCS: 36415; 85610

== ENCOUNTER 2022-04-04 11:50 | Outpatient (RCR) | payer MEDICARE, SELFPAY ==
[2022-01-09 00:57] VITALS: BMI 33.6
[2022-04-04 14:59] LABS: International Normalized Ratio 2.5; Prothrombin Time (Protime)PT. 26.3 SECONDS (11.7-14.9)
== END 2022-04-09 18:00 | disposition home or self-care (01) ==
LOC: MTLAB 11:50
PROVIDERS: Family Provider Family Medicine; PCP Family Medicine; Referring Provider Nurse Practitioner Family; Visit Provider Nurse Practitioner Family
DX: Z79.01 Long term (current) use of 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 (principal)
CPT/HCPCS: 36415; 85610

== ENCOUNTER → 2022-05-21 | Outpatient (CLI) | payer MEDICARE, SELFPAY ==
--- NOTE | 2022-05-21 16:30 | RAD_ITS ---
EXAM: XR CHEST, 2 VIEWS CLINICAL INDICATION: pneumonia TECHNIQUE: Frontal and lateral views of the chest. This report was created using [employer] report generation technology. COMPARISON: August 12, 2021 FINDINGS: LUNGS AND PLEURAL SPACES: Right middle and upper lobe pneumonia. No pneumothorax. No effusion. HEART: Unremarkable. Cardiac silhouette not enlarged. MEDIASTINUM: Central airways and mediastinal contour are unremarkable. BONES/JOINTS: Degenerative changes of the spine. Diffuse osteopenia. SOFT TISSUES: Unremarkable. UPPER ABDOMEN: IVC filter identified. RAD/Chest PA and Lateral IMPRESSION: Right middle and upper lobe pneumonia. Electronically Signed: Chau Reid MD at 1:53 EST ,
[2022-05-21 17:45] LABS: Prothrombin Time (Protime)PT. 40.8 SECONDS (11.7-14.9)
[2022-05-21 18:20] LABS: International Normalized Ratio 4.3
== END | disposition home or self-care (01) ==
LOC: LABSPEC 15:57 → BIMLAB 16:08
PROVIDERS: Nurse Practitioner Family; PCP Family Medicine; Referring Provider Family Medicine; Visit Provider Family Medicine
DX: Z79.01 Long term (current) use of 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 (principal); J18.9 Pneumonia, unspecified organism; M85.80 Other specified disorders of bone density and structure, unspecified site; R05.9 Cough, unspecified
CPT/HCPCS: 36415; 71046; 85610; 87635; U0003; U0005

== ENCOUNTER 2022-05-28 15:56 | Outpatient (RCR) | payer MEDICARE, SELFPAY ==
[2022-04-10 02:21] VITALS: BMI 33.6
[2022-05-28 16:48] LABS: International Normalized Ratio 2.5
== END 2022-06-10 23:59 ==
LOC: BIMLAB 15:56
PROVIDERS: Family Provider Family Medicine; PCP Family Medicine; Referring Provider Nurse Practitioner Family; Visit Provider Nurse Practitioner Family
DX: Z79.01 Long term (current) use of 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 (principal)
CPT/HCPCS: 36415; 85610

== ENCOUNTER 2022-08-07 16:15 | Outpatient (RCR) | payer MEDICARE, SELFPAY ==
[2022-06-11 00:12] VITALS: BMI 33.6
[2022-07-22 17:40] LABS: Absolute Lymphocyte Count 1.25 X10^3/uL (0.83-4.51); Absolute Neutrophil Count 4.8 X10^3/uL (2.0-7.7); Basophil# 0.04 X10^3/uL; Basophil% 0.6 % (0-1); Eosinophil# 0.31 X10^3/uL; Eosinophils% 4.4 % (0-5); Hematocrit 41.5 % (37-47); Hemoglobin 11.9 g/dL (12.0-15.0); Lymphocyte # 1.25 X10^3/ul (0.83-4.51); Lymphocyte % 17.9 % (19-41); Mean Corp Hgb Conc 28.7 g/dL (32-36); Mean Corpuscular Hgb 20.6 pg (27.0-32.0); Mean Corpuscular Volume 71.8 fL (81-99); Monocyte# 0.59 X10^3/uL; Monocyte% 8.4 % (0-10); NRBC Flagged by Analyzer 0 % (0-5); Neutrophil # 4.79 X10^3/uL (2.7-7.7); Neutrophil % 68.4 % (47-70); Platelet Count 245 K/mm3 (150-450); RBC Distribution Width CV 18.3 % (11.6-14.6); RBC Distribution Width SD 45.2 fl (35.1-43.9); Red Blood Count 5.78 M/mm3 (4.2-5.4)
[2022-07-22 17:55] LABS: International Normalized Ratio 2.2; Prothrombin Time (Protime)PT. 23.9 SECONDS (11.7-14.9)
[2022-07-22 19:19] LABS: ALB/GLOB Ratio 1.2 RATIO (0.9-2.4); AST(SGOT) 22 U/L (15-37); Alanine Aminotransfer ALT/SGPT 29 U/L (13-56); Albumin, Serum 3.8 g/dL (3.2-5.0); Alkaline Phosphatase 107 U/L (45-117); Anion Gap 9 (5-15); BUN 15 mg/dL (7-18); BUN/Creat Ratio 16.6 RATIO (10-20); Calcium,Total 9.7 mg/dL (8.5-10.1); Chloride 101 mmol/L (98-107); Cholesterol 144 mg/dL (200); EST Glomerular Filtration Rate 66 mL/min (>60); Est Glom Filt Rate - Afr Amer 80 mL/min (>60); Globulin 3.1 g/dL (2.2-4.2); Glucose 170 mg/dL (74-106); High Density Lipoprotein 36 mg/dL; Potassium 4.1 mmol/L (3.5-5.1); Protein, Total 6.9 g/dL (6.4-8.2); Sodium Level 135 mmol/L (136-145); Thyroid Stim Hormone (TSH) 2.05 uIU/mL (0.358-3.74); Triglycerides 280 mg/dL; Very Low Density Lipoprotein 56 mg/dL (5-40)
[2022-08-07 19:39] LABS: International Normalized Ratio 2.4; Prothrombin Time (Protime)PT. 26.1 SECONDS (11.7-14.9)
== END 2022-08-08 23:59 ==
LOC: BIMLAB 16:15
PROVIDERS: Family Provider Family Medicine; PCP Family Medicine; Referring Provider Nurse Practitioner Family; Visit Provider Nurse Practitioner Family
DX: Z79.01 Long term (current) use of 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 (principal); E11.9 Type 2 diabetes mellitus without complications; J18.9 Pneumonia, unspecified organism; E87.1 Hypo-osmolality and hyponatremia
CPT/HCPCS: 36415; 80053; 80061; 84443; 85025; 85610

== ENCOUNTER → 2022-08-08 | Outpatient (CLI) | payer MEDICARE, SELFPAY ==
[2022-08-08 13:02] LABS: Bacteria 0 SEEN /hpf (None Seen); Mucous, Urine 0 SEEN /hpf (<or=2+); Red Blood Cells-Urine 0 SEEN /hpf (0-5); Squamous Epithelial Cells - UA 0 SEEN /hpf (5-10)
[2022-08-08 15:31] LABS: Glucose, Dipstick Normal (Normal); Ketone-Dipstick Negative (Negative); Leukocyte Esterase-Dipstick 25 /ul (Negative); Nitrite-Dipstick Negative (Negative); Occult Blood-Urine Negative /ul (Negative); Protein-Dipstick Negative (Negative); Urine Bilirubin Dipstick Negative (Negative); Urine Urobilinogen Normal (Normal)
[2022-08-08 15:33] LABS: Color, Urine Yellow (Yellow); Urine Clarity Clear (Clear)
[2022-08-08 15:44] LABS: White Blood Cells 0-5 SEEN /hpf (0-5)
== END | disposition home or self-care (01) ==
LOC: MTLAB 12:37
PROVIDERS: PCP Family Medicine; Referring Provider Family Medicine; Visit Provider Family Medicine
DX: N34.3 Urethral syndrome, unspecified (principal)
CPT/HCPCS: 81001

== ENCOUNTER 2022-09-09 16:18 | Outpatient (RCR) | payer MEDICARE, SELFPAY ==
[2022-08-09 00:21] VITALS: BMI 33.6
[2022-09-09 16:52] LABS: International Normalized Ratio 2.3; Prothrombin Time (Protime)PT. 25.5 SECONDS (11.7-14.9)
== END 2022-10-08 23:59 ==
LOC: BIMLAB 16:18
PROVIDERS: Family Provider Family Medicine; PCP Family Medicine; Referring Provider Nurse Practitioner Family; Visit Provider Family Medicine
DX: Z79.01 Long term (current) use of 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 (principal)
CPT/HCPCS: 36415; 85610

== ENCOUNTER 2022-12-11 16:09 | Outpatient (RCR) | payer MEDICARE, SELFPAY ==
[2022-10-09 00:07] VITALS: BMI 33.6
[2022-12-11 18:18] LABS: International Normalized Ratio 2.1
[2022-12-12 09:01] LABS: Anion Gap 6 (5-15); BUN 17 mg/dL (7-18); BUN/Creat Ratio 20.6 RATIO (10-20); Calcium,Total 9.2 mg/dL (8.5-10.1); Chloride 103 mmol/L (98-107); Creatinine, Serum 0.82 mg/dL (0.55-1.02); EST Glomerular Filtration Rate 73 mL/min (>60); Est Glom Filt Rate - Afr Amer 88 mL/min (>60); Glucose 127 mg/dL (74-106); Potassium 4.3 mmol/L (3.5-5.1); Sodium Level 136 mmol/L (136-145)
== END 2023-01-08 23:59 ==
LOC: BIMLAB 16:09
PROVIDERS: Family Provider Family Medicine; PCP Family Medicine; Referring Provider Family Medicine; Visit Provider Family Medicine
DX: Z79.01 Long term (current) use of 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 (principal); I27.21 Secondary pulmonary arterial hypertension; E11.9 Type 2 diabetes mellitus without complications
CPT/HCPCS: 36415; 80048; 83036; 85610

== ENCOUNTER → 2023-03-03 | Outpatient (CLI) | payer MEDICARE, SELFPAY ==
[2023-03-03 16:25] LABS: International Normalized Ratio 2.2
== END | disposition home or self-care (01) ==
LOC: BIMLAB 14:17
PROVIDERS: PCP Family Medicine; Visit Provider Family Medicine
DX: Z79.01 Long term (current) use of 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 (principal)
CPT/HCPCS: 36415; 85610

== ENCOUNTER → 2023-04-30 | Outpatient (CLI) | payer MEDICARE, SELFPAY ==
[2023-04-30 16:12] LABS: International Normalized Ratio 3.1; Prothrombin Time (Protime)PT. 32.5 SECONDS (11.7-14.9)
== END | disposition home or self-care (01) ==
LOC: BIMLAB 14:15
PROVIDERS: PCP Family Medicine; Visit Provider Family Medicine
DX: Z79.01 Long term (current) use of 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 (principal)
CPT/HCPCS: 36415; 85610

== ENCOUNTER 2023-06-01 16:39 | Outpatient (RCR) | payer MEDICARE, SELFPAY ==
[2023-01-09 00:05] VITALS: BMI 33.6
[2023-06-01 17:56] LABS: International Normalized Ratio 4.2
== END 2023-06-01 18:00 | disposition home or self-care (01) ==
LOC: MTLAB 16:39
PROVIDERS: Family Provider Family Medicine; PCP Family Medicine; Referring Provider Family Medicine; Visit Provider Family Medicine
DX: Z79.01 Long term (current) use of 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 (principal)
CPT/HCPCS: 36415; 85610

== ENCOUNTER 2023-06-24 14:45 | Outpatient (CLI) | payer MEDICARE, SELFPAY ==
[2023-06-24 14:55] VITALS: RESP 18
[2023-06-24] MEDS: 0.9% NaCl IVPB Med Flush (250 mL) 15 ML IV (15:05)
[2023-06-24] MEDS: 0.9% NaCl Peripheral Flush Adult/Peds IV (15:05)
[2023-06-24] MEDS: Ferric Carboxymaltose (Injectafer) 750 MG in 0.9% NaCl 250 ML 795 MG IV (15:14)
[2023-06-24 15:41] VITALS: BP 143/59; PULSE 91; RESP 16; TEMP 37.1; O2SAT 95
== END 2023-06-24 14:46 | disposition home or self-care (01) ==
LOC: MEDOUTP 14:46
PROVIDERS: PCP Family Medicine; Referring Provider Nurse Practitioner; Visit Provider Nurse Practitioner
DX: D50.9 Iron deficiency anemia, unspecified (principal)
CPT/HCPCS: 96365; J1439; J7050; A4216

== ENCOUNTER 2023-07-01 14:28 | Outpatient (CLI) | payer MEDICARE, SELFPAY ==
[2023-07-01] MEDS: 0.9% NaCl Peripheral Flush Adult/Peds IV (14:51)
[2023-07-01] MEDS: 0.9% NaCl IVPB Med Flush (250 mL) 15 ML IV (14:52)
[2023-07-01] MEDS: Ferric Carboxymaltose (Injectafer) 750 MG in 0.9% NaCl 250 ML 795 MG IV (14:52)
[2023-07-01 14:54] VITALS: BP 151/46; PULSE 85; RESP 18; TEMP 35.7; O2SAT 93; BMI 33.1
[2023-07-01 15:20] VITALS: PULSE 84; RESP 16; TEMP 36.2; O2SAT 93
[2023-07-01 15:21] VITALS: BP 144/38; PULSE 81; RESP 16; TEMP 36.2; O2SAT 95
[2023-07-01 15:32] VITALS: BP 150/47; PULSE 100; RESP 16; O2SAT 94
--- OUTSIDE RECORDS SUMMARY | 2023-07-01 18:39 | XMS RPT_ITS | CCD ---
Author Name Unknown Address [address] [place] [address] Organization [facility] Care Team Providers Care Manpower Development Advisor Name Role Phone Anika Pedraza DO Primary Care Provider AGUSTINA OCHOA Referring Unavailable ANIKA PEDRAZA Primary Care Unavailable AGUSTINA OCHOA Referring Unavailable AGUSTINA OCHOA Attending Unavailable ANIKA PEDRAZA Primary Care Unavailable CLARISSE SAPP Referring Unavailable ANIKA PEDRAZA Primary Care Unavailable AGUSTINA OCHOA Referring Unavailable ANIKA PEDRAZA Primary Care Unavailable Allergies Allergy Classification Reported Allergen(s) Allergy Type Date of Onset Reaction(s) Facility (20 sources) Adhesive Tape; Translations: [ADHESIVE TAPE (ROSINS)] Propensity to adverse reactions 4 [facility] Work Phone: (20 sources) Nitrates; Translations: [NITRATES] Drug Allergy 3 Other: See Comments [facility] Work Phone: (20 sources) Nitro; Translations: [NITRO] Propensity to adverse reactions to drug 3 Other: See Comments [facility] Work Phone: Medications Current Medications Medication Drug Class(es) Dates Sig (Normalized) Sig (Original) azithromycin 500 mg oral tablet (1 source) Macrolide Antimicrobial Start: 01-08-2022 End: 01-15-2022 take 1 tablet by mouth once daily azithromycin (ZITHROMAX) 500 mg tablet Take 1 tablet by mouth once daily for 7 days. 7 tablet 0 01/08/2022 01/15/2022 Active Completed/Discontinued Medications Medication Drug Class(es) Dates Sig (Normalized) Sig (Original) [id number] 200 actuat albuterol 0.09 mg/actuat metered dose inhaler (19 sources) beta2-Adrenergic Agonist Start: 03-17-2022 take 2 puff(s) by inhalation every four hours as needed for wheezing albuterol HFA (PROVENTIL HFA, VENTOLIN HFA) 90 mcg/actuation inhaler Inhale 2 Puffs as instructed every 4 hours as needed for wheezing/shortnes s of breath. 0 03/17/2022 Active Problems Active Problems Problem Classification Problem Date Documented Date Episodic/Chronic Anxiety disorders (19 sources) Panic disorder with agoraphobia; Translations: [Agoraphobia with panic disorder] Onset: 06-09-2019 06-09-2019 Chronic Cardiac dysrhythmias (19 sources) Paroxysmal atrial fibrillation; Translations: [Paroxysmal atrial fibrillation] Onset: 06-09-2019 06-09-2019 Chronic Chronic obstructive pulmonary disease and bronchiectasis (20 sources) Chronic obstructive lung disease; Translations: [Chronic obstructive pulmonary disease, unspecified] Onset: 06-09-2019 02-09-2020 Chronic Deficiency and other anemia (1 source) Iron deficiency anemia; Translations: [Other iron deficiency anemias] 03-26-2023 Episodic Deficiency and other anemia (1 source) Other iron deficiency anemias; Translations: [Other iron deficiency anemia] Onset: 03-26-2023 Episodic Diabetes mellitus without complication (19 sources) Diabetes mellitus; Translations: [Type 2 diabetes mellitus without complications] Onset: 05-31-2014 05-06-2021 Chronic Disorders of lipid metabolism (19 sources) Mixed hyperlipidemia; Translations: [Mixed hyperlipidemia] Onset: 06-09-2019 06-09-2019 Chronic Essential hypertension (19 sources) Hypertensive disorder; Translations: [Essential (primary) hypertension] Onset: 05-31-2014 05-31-2014 Chronic Mood disorders (19 sources) Depressive disorder; Translations: [Depression] Onset: 05-31-2014 05-06-2021 Chronic Other lower respiratory disease (8 sources) Dyspnea; Translations: [Shortness of breath] Episodic Other lower respiratory disease (1 source) Dyspnea, unspecified; Translations: [Dyspnea and respiratory abnormalities] Onset: 03-26-2023 Episodic Other lower respiratory disease (1 source) Other abnormalities of breathing; Translations: [Dyspnea and respiratory abnormalities] Onset: 03-26-2023 Episodic Other nutritional; endocrine; and metabolic disorders (19 sources) Morbid obesity; Translations: [Morbid (severe) obesity due to excess calories] Onset: 04-03-2003 06-01-2014 Chronic Other nutritional; endocrine; and metabolic disorders (19 sources) Obese class II; Translations: [Obesity, unspecified] Onset: 02-09-2020 02-09-2020 Chronic Other nutritional; endocrine; and metabolic disorders (19 sources) Obese class I; Translations: [Obesity, unspecified] Onset: 03-22-2021 03-22-2021 Chronic Other upper respiratory disease (19 sources) Chronic rhinitis; Translations: [Chronic rhinitis] Onset: 02-09-2020 02-09-2020 Chronic Pulmonary heart disease (20 sources) Pulmonary hypertension; Translations: [Pulmonary hypertension, unspecified] Onset: 05-31-2014 05-06-2021 Chronic Past or Other Problems Problem Classification Problem Date Documented Da te Episodic/Chronic Genitourinary symptoms and ill-defined conditions (20 sources) Nephrotic range proteinuria; Translations: [Proteinuria, unspecified] Onset: 04-29-2012 05-31-2014 Episodic Immunizations and screening for infectious disease (19 sources) Lupus anticoagulant disorder; Translations: [Raised antibody titer] Onset: 05-31-2014 05-06-2021 Episodic Neoplasms of unspecified nature or uncertain behavior (19 sources) Neoplasm of bladder; Translations: [Neoplasm of unspecified behavior of bladder] Onset: 05-31-2014 05-06-2021 Episodic Other gastrointestinal disorders (19 sources) Stool DNA-based colorectal cancer screening positive; Translations: [Other fecal abnormalities] Onset: 06-09-2019 06-09-2019 Episodic Pulmonary heart disease (19 sources) Pulmonary embolism; Translations: [Other pulmonary embolism without acute cor pulmonale] Onset: 04-03-2003 06-09-2019 Episodic Results Test Name Value Interpretation Reference Range Facil ity Vital Signs Date Time Vital Sign Value Performing Clinician Jany dsouza 03-26-2023 12:59-0500 Body temperature 98.49 [degF] Agustina Ochoa MD Work Phone: [facility] 03-26-2023 12:59-0500 Body weight 96.8 kg Agustina Ochoa MD Work Phone: [facility] 03-26-2023 12:59-0500 Diastolic blood pressure 48 mm[Hg] Agustina Ochoa MD Work Phone: [facility] 03-26-2023 12:59-0500 Heart rate 69 /min Agustina Ochoa MD Work Phone: [facility] 03-26-2023 12:59-0500 Respiratory rate 16 /min Agustina Ochoa MD Work Phone: [facility] 03-26-2023 12:59-0500 SaO2% (BldA) [Mass fraction] 97 % Agustina Ochoa MD Work Phone: [facility] 03-26-2023 12:59-0500 Systolic blood pressure 152 mm[Hg] Agustina Ochoa MD Work Phone: [facility] 03-27-2022 13:38-0500 Body height 160 cm Agustina Ochoa MD Work Phone: [facility] 03-27-2022 13:38-0500 Body temperature 98.6 [degF] Agustina Ochoa MD Work Phone: [facility] 03-27-2022 13:38-0500 Body weight 89 kg Pulm 7 [facility] 03-27-2022 13:38-0500 Diastolic blood pressure 60 mm[Hg] Agustina Ochoa MD Work Phone: [facility] 03-27-2022 13:38-0500 Heart rate 92 /min Agustina Ochoa MD Work Phone: [facility] 03-27-2022 13:38-0500 Respiratory rate 18 /min Agustina Ochoa MD Work Phone: [facility] 03-27-2022 13:38-0500 SaO2% (BldA) [Mass fraction] 97 % Agustina Ochoa MD Work Phone: [facility] 03-27-2022 13:38-0500 Systolic blood pressure 148 mm[Hg] Agustina Ochao MD Work Phone: [facility] 03-27-2022 13:00-0500 Body height 160.2 cm Pulm 7 [facility] 01-08-2022 15:10-0400 Body temperature 99.61 [degF] Agustina Ochoa MD Work Phone: [facility] 01-08-2022 15:10-0400 Body weight 85.73 kg Agustina Ochoa MD Work Phone: [facility] 01-08-2022 15:10-0400 Diastolic blood pressure 48 mm[Hg] Agustina Ochoa MD Work Phone: [facility] 01-08-2022 15:10-0400 Heart rate 80 /min Agustina Ochoa MD Work Phone: [facility] 01-08-2022 15:10-0400 Respiratory rate 18 /min Agustina Ochoa MD Work Phone: [facility] 01-08-2022 15:10-0400 SaO2% (BldA) [Mass fraction] 92 % Agustina Ochoa MD Work Phone: [facility] 01-08-2022 15:10-0400 Systolic blood pressure 136 mm[Hg] Agustina Ochoa MD Work Phone: [facility] Encounters Encounter Date Encounter Type Care Provider Facility Start: 04-15-2023 Refill Agustina Chauhan si, MD Work Phone: Pulmonary Medicine Procedures Date Procedure Procedure Detail Performing Clinician Start: 03-27-2022 Pulmonary stress testing Agustina Ochoa MD Work Phone: Start: 03-27-2022 Plethysmography lung volumes w/wo airway resist Ngoc Thompson APRN.NURSERYMAN ASSISTANT Work Phone: Start: 03-27-2022 Echo transthorac r-t 2d w/wo m-mode rec comp Ngoc Thompson APRN.NURSERYMAN ASSISTANT Work Phone: Start: 06-13-2019 Colonoscopy Ngoc Thompson APRN.NURSERYMAN ASSISTANT Work Phone: Plan of Treatment Date Care Activity Detail Author Start: 09-24-2023 End: 12-24-2023 CBC W Auto Differential panel - Blood CBC + DIFF Lab Routine Dyspnea, unspecified type Expected: 09/24/2023, Expires: 12/24/2023 [facility] Work Phone: Immunizations Immunization Date Immunization Notes Care Provider Leonela white 03-09-2023 respiratory syncytia l virus (RSV) vaccine, adjuvanted (AREXVY) Agustina Ochoa MD Work Phone: [facility] 03-09-2023 zoster vaccine recombinant Agustina Ochoa MD Work Phone: [facility] 03-03-2023 influenza, injectabl e, quadrivalent, preservative free Agustina Ochoa MD Work Phone: [facility] 03-26-2022 influenza, seasonal, injectable Agustina Ochoa MD Work Phone: [facility] 03-26-2022 influenza virus vacc ine, unspecified formulation Agustina Ochoa MD Work Phone: [facility] 03-01-2021 influenza (aIIV4) vaccine, age 65+ yr, quadrivalent, PF (FLUAD QUAD) Agustina Ochoa MD Work Phone: [facility] 01-25-2020 influenza, seasonal, injectable Agustina Ochoa MD Work Phone: [facility] 01-25-2020 influenza, seasonal, injectable, preservative free Ngoc Jay WASHER AND CAPPER MACHINE OPERATOR.NURSERYMAN ASSISTANT Work Phone: [facility] 02-15-2019 pneumococcal polysaccharide vaccine, 23 valent Ngoc Jay WASHER AND CAPPER MACHINE OPERATOR.NURSERYMAN ASSISTANT Work Phone: [facility] 02-06-2018 influenza, seasonal, injectable Ngoc Jay WASHER AND CAPPER MACHINE OPERATOR.NURSERYMAN ASSISTANT Work Phone: [facility] 02-23-2017 influenza, seasonal, injectable Ngoc Jay WASHER AND CAPPER MACHINE OPERATOR.NURSERYMAN ASSISTANT Work Phone: [facility] Work Phone: 02-25-2016 influenza, injectabl e, quadrivalent, contains preservative Ngoc Jay WASHER AND CAPPER MACHINE OPERATOR.NURSERYMAN ASSISTANT Work Phone: [facility] 02-21-2015 influenza, seasonal, injectable Ngoc Jay WASHER AND CAPPER MACHINE OPERATOR.NURSERYMAN ASSISTANT Work Phone: [facility] 02-15-2014 influenza, seasonal, injectable, preservative free Ngoc Jay WASHER AND CAPPER MACHINE OPERATOR.NURSERYMAN ASSISTANT Work Phone: [facility] 05-30-2013 zoster vaccine, live Ngoc B air WASHER AND CAPPER MACHINE OPERATOR.NURSERYMAN ASSISTANT Work Phone: [facility] 02-16-2013 influenza, seasonal, injectable Ngoc Jay WASHER AND CAPPER MACHINE OPERATOR.NURSERYMAN ASSISTANT Work Phone: [facility] 03-28-2009 novel influenza-H1N1 -09, preservative-free, injectable Ngoc Jay WASHER AND CAPPER MACHINE OPERATOR.NURSERYMAN ASSISTANT Work Phone: [facility] 01-31-2005 pneumococcal polysaccharide vaccine, 23 valent Ngoc Jay WASHER AND CAPPER MACHINE OPERATOR.NURSERYMAN ASSISTANT Work Phone: [facility] 02-13-2004 influenza virus vacc ine, unspecified formulation Ngoc Jay WASHER AND CAPPER MACHINE OPERATOR.NURSERYMAN ASSISTANT Work Phone: [facility] Payers Date Payer Category Payer Unknown ANTHEM BLUE CROS S AND BLUE SHIELD ANTHEM MEDIBLUE O [id number] 2017-Present [phone] [address] [id number] 2017 Unknown ANTHEM BLUE CROS S AND BLUE SHIELD ANTHEM MEDIBLUE O [id number] 2017-Present [phone] [address] [facility] [id number] 2017 Unknown [id number] Social History Date Type Detail Facility Start: [facility]-08-[facility]22 [facility] Work Phone: End: 07-20-1981 History of tobacco use Current smoker [facility] Work Phone: End: 07-20-1981 History of tobacco use Cigarette Smoker [facility] Work Phone: Start: 03-21-2021 End: 03-26-2023 Alcohol intake Current non-drinker of alcohol (finding) [facility] Start: 04-29-2012 End: 01-08-2022 Tobacco Comment Quit tobacco in 1981 [facility] Start: 1955 Sex Assigned At Female C [facility] Start: 01-08-2022 End: 03-26-2023 Cigarettes smoked current (pack per day) - Reported 1 [facility] Start: 01-08-2022 Tobacco use and exposure Smokeless tobacco non-user [facility] Start: 12-29-2021 End: 03-27-2022 Exposure to SARS-CoV-2 (event) Not sure [facility] Start: 03-27-2022 End: 03-26-2023 Tobacco use panel [facility] National Score (1-10 0), lower number is lower risk 71 [facility] Start: 03-25-2020 Gender identity Identifies as female gender (finding) [facility] Start: 03-25-2020 Sexual orientation Heterosexual (fin ding) [facility] Clinical Notes 01-08-2022 to 03-26-2023 Agustina Ochoa MD - 03/26/2023 1:06 PM Chilango Wagoner Tech - 03/26/2023 12:48 PM ESTTelephone Encounter - Clarisse Sapp APRN.CNS - 03/26/2023 10:57 AM ESTPatient Instructions Note Date & Type Note Facility 03-26-2023 Note HNO ID: [id number] Author: Agustina Ochoa MD Service: ? Author Type: Physician Type: Progress Notes Filed: 03/26/2023 3:25 PM Note Text: PULMONARY HYPERTENSION CLINIC Return Visit March 26, 2023 I had the pleasure of seeing Agustina Garcia in consultation for continued evaluation and and management of Pulmonary Hypertension. Summary of this visit and my recommendations will be relayed to the referring physician and primary care physician by way of electronic communication or by mail. PCP: Anika Pedraza DO Referring Provider: Self HPI: Ms. Garcia is a 65 year old female with a PMH of CTEPH, who presents today for evaluation of pulmonary hypertension. Since the Prior Visit: Feels more fatigued and SOB No COPD exacerbation Shortness of breath at rest:Yes Shortness of breath w/ exertion: yes FC 3 Orthopnea:Yes PND:No Edema:Yes Chest Pain:No Palpitations:No Dizziness/Lightheadedness:Yes Syncope:No Adheres to a low salt diet: No Regular Exercise: No REVIEW OF SYSTEMS: Negative for joint or back pain, weight loss, fever, KEATING, cough, wheezing, chest pain, leg swelling, syncope, palpitations. No nausea, vomiting, diarrhea, rash, bleeding. A complete ROS was performed all others systems are negative MEDICATIONS:PAST MEDICAL HISTORY: PAST MEDICAL HISTORY Diagnosis Date Agoraphobia with panic disorder Anxiety Atrial fib/flutter, transient COPD (chronic obstructive pulmonary disease) (HCC) Diabetes (HCC) DVT (deep venous thrombosis) (HCC) Lupus anticoagulant (LAC) with hemorrhagic disorder Mixed hyperlipidemia Obesity, unspecified Phlebitis and thrombophlebitis of unspecified site Pulmonary emboli (HCC) Pulmonary embolism and infarction Pulmonary hypertension (HCC) Pulmonary hypertension (HCC) Rosacea TIA (transient ischemic attack) Unspecified essential hypertension PAST SURGICAL HISTORY Procedure Laterality Date CHOLECYSTECTOMY 1984 COLONOSCOPY FLX DX W/COLLJ SPEC WHEN PFRMD 06/13/2019 Colonoscopy CORRECT BUNION,SIMPLE DILATION AND CURETTAGE DXAND/THER NONOBSTETRIC ESOPHAGOGASTRODUODENOSCOPY TRANSORAL DIAGNOSTIC 06/13/2019 EGD PAST SURGICAL HISTORY OF 08/12 vena cava filter placement RPR UMBILICAL HERNIA < 5 YRS REDUCIBLE MEDICATIONS: sildenafil (REVATIO) 20 mg tablet Take 3 tablets by mouth three times a day. sertraline (ZOLOFT) 50 mg tablet Take 50 mg by mouth once daily. spironolactone (ALDACTONE) 50 mg tablet Take 50 mg by mouth once daily. omeprazole (PRILOSEC) 40 mg capsule Take 40 mg by mouth once daily. dilTIAZem CR (TIAZAC, TAZTIA XT) 360 mg 24 hr capsule Take 360 mg by mouth once daily. ambrisentan (LETAIRIS) 10 mg tablet Take 1 tablet by mouth once daily. fluticasone-vilanterol (BREO ELLIPTA) 200-25 mcg/dose inhaler Inhale 1 Inhalation as instructed once daily. tiotropium (SPIRIVA) 18 mcg inhalation capsule Inhale 1 capsule as instructed once daily. with HandiHaler albuterol HFA (PROVENTIL HFA, VENTOLIN HFA) 90 mcg/actuation inhaler Inhale 2 Puffs as instructed every 4 hours as needed for wheezing/shortness of breath. warfarin (COUMADIN) 1 mg tablet Take 1 mg by mouth daily as directed. pravastatin (PRAVACHOL) 40 mg tablet Take 1 tablet by mouth daily at bedtime. tolterodine ER (DETROL LA) 2 mg 24 hr capsule Take 2 mg by mouth once daily. OLANZapine (ZYPREXA) 5 mg tablet Take 5 mg by mouth daily at bedtime. furosemide (LASIX) 40 mg tablet Take 1 tablet by mouth twice daily. potassium chloride 20 mEq TbER Take 1 tablet by mouth three times daily. alprazolam(XANAX 1 MG TAB) 2-3 tablets per day for anxiety ALLERGIES: ALLERGIES Allergen Reactions Nitrates Other: See Comments Nitro Other: See Comments Adhesive Tape (Leeanne* SOCIAL HISTORY: Social History Tobacco Use Smoking status: Former Packs/day: 1.00 Years: 8.00 Additional pack years: 0.00 Total pack years: 8.00 Types: Cigarettes Quit date: 07/20/1981 Years since quittin.7 Smokeless tobacco: Never Tobacco comments: Quit tobacco in 1981 Vaping Use Vaping Use: Never used Substance Use Topics Alcohol use: No Drug use: No FAMILY HISTORY: FAMILY HISTORY Problem Relation Age of Onset other (pulmonary emblus) Brother Ischemic Heart Disease Brother had DVT post hosp course COPD Mother Heart Father CHF PHYSICAL EXAM: VITALS: BP (!) 152/48 Pulse 69 Temp 36.9 ?C (98.5 ?F) (Temporal) Resp 16 Wt 96.8 kg (213 lb 6.5 oz) SpO2 97% BMI 37.80 kg/m? General appearance: Alert, NAD Neck: Supple neck. JVD not present at 45 degrees of incline. Respiratory: Bilateral diffuse wheezing. No rhonchi or rales. Diaphragmatic excursion and chest wall symmetry appear equal and normal. No accessory muscle use. Cardiovascular: RRR without gallop, or rubs. There is a 1/6 murmur best heard in the LLSB. Non-displaced PMI. No parasternal heave. Trace peripheral edema noted in the right lower extremity. (more content not included)... [facility] 03-26-2023 Note HNO ID: [id number] Author: Chilango Puckett Tech Service: ? Author Type: Actuary Clerk Type: Progress Notes Filed: 03/26/2023 12:50 PM Note Text: PT unable to perform the 6MWT, Due to her breathing. Dr Ochoa was made aware.// [facility] 03-26-2023 History of Presen t illness Narrative PULMONARY HYPERTENSION CLINIC Return Visit March 26, 2023 I had the pleasure of seeing Agustina Garcia in consultation for continued evaluation and and management of Pulmonary Hypertension. Summary of this visit and my recommendations will be relayed to the referring physician and primary care physician by way of electronic communication or by mail. PCP: Anika Pedraza DO Referring Provider: Self HPI: Ms. Garcia is a 65 year old female with a PMH of CTEPH, who presents today for evaluation of pulmonary hypertension. Since the Prior Visit: Feels more fatigued and SOB No COPD exacerbation Shortness of breath at rest:Yes Shortness of breath w/ exertion: yes FC 3 Orthopnea:Yes PND:No Edema:Yes Chest Pain:No Palpitations:No Dizziness/Lightheadedness:Yes Syncope:No Adheres to a low salt diet: No Regular Exercise: No REVIEW OF SYSTEMS: Negative for joint or back pain, weight loss, fever, KEATING, cough, wheezing, chest pain, leg swelling, syncope, palpitations. No nausea, vomiting, diarrhea, rash, bleeding. A complete ROS was performed all others systems are negative MEDICATIONS:PAST MEDICAL HISTORY: PAST MEDICAL HISTORY Diagnosis Date Agoraphobia with panic disorder Anxiety Atrial fib/flutter, transient COPD (chronic obstructive pulmonary disease) (HCC) Diabetes (HCC) DVT (deep venous thrombosis) (HCC) Lupus anticoagulant (LAC) with hemorrhagic disorder Mixed hyperlipidemia Obesity, unspecified Phlebitis and thrombophlebitis of unspecified site Pulmonary emboli (HCC) Pulmonary embolism and infarction Pulmonary hypertension (HCC) Pulmonary hypertension (HCC) Rosacea TIA (transient ischemic attack) Unspecified essential hypertension PAST SURGICAL HISTORY Procedure Laterality Date CHOLECYSTECTOMY 1984 COLONOSCOPY FLX DX W/COLLJ SPEC WHEN PFRMD 06/13/2019 Colonoscopy CORRECT BUNION,SIMPLE DILATION & CURETTAGE DX&/THER NONOBSTETRIC ESOPHAGOGASTRODUODENOSCOPY TRANSORAL DIAGNOSTIC 06/13/2019 EGD PAST SURGICAL HISTORY OF 08/12 vena cava filter placement RPR UMBILICAL HERNIA < 5 YRS REDUCIBLE MEDICATIONS: sildenafil (REVATIO) 20 mg tablet Take 3 tablets by mouth three times a day. sertraline (ZOLOFT) 50 mg tablet Take 50 mg by mouth once daily. spironolactone (ALDACTONE) 50 mg tablet Take 50 mg by mouth once daily. omeprazole (PRILOSEC) 40 mg capsule Take 40 mg by mouth once daily. dilTIAZem CR (TIAZAC, TAZTIA XT) 360 mg 24 hr capsule Take 360 mg by mouth once daily. ambrisentan (LETAIRIS) 10 mg tablet Take 1 tablet by mouth once daily. fluticasone-vilanterol (BREO ELLIPTA) 200-25 mcg/dose inhaler Inhale 1 Inhalation as instructed once daily. tiotropium (SPIRIVA) 18 mcg inhalation capsule Inhale 1 capsule as instructed once daily. with HandiHaler albuterol HFA (PROVENTIL HFA, VENTOLIN HFA) 90 mcg/actuation inhaler Inhale 2 Puffs as instructed every 4 hours as needed for wheezing/shortness of breath. warfarin (COUMADIN) 1 mg tablet Take 1 mg by mouth daily as directed. pravastatin (PRAVACHOL) 40 mg tablet Take 1 tablet by mouth daily at bedtime. tolterodine ER (DETROL LA) 2 mg 24 hr capsule Take 2 mg by mouth once daily. OLANZapine (ZYPREXA) 5 mg tablet Take 5 mg by mouth daily at bedtime. furosemide (LASIX) 40 mg tablet Take 1 tablet by mouth twice daily. potassium chloride 20 mEq TbER Take 1 tablet by mouth three times daily. alprazolam(XANAX 1 MG TAB) 2-3 tablets per day for anxiety ALLERGIES: ALLERGIES Allergen Reactions Nitrates Other: See Comments Nitro Other: See Comments Adhesive Tape (Leeanne* SOCIAL HISTORY: Social History Tobacco Use Smoking status: Former Packs/day: 1.00 Years: 8.00 Additional pack years: 0.00 Total pack years: 8.00 Types: Cigarettes Quit date: 07/20/1981 Years since quittin.7 Smokeless tobacco: Never Tobacco comments: Quit tobacco in 1981 Vaping Use Vaping Use: Never used Substance Use Topics Alcohol use: No Drug use: No FAMILY HISTORY: FAMILY HISTORY Problem Relation Age of Onset other (pulmonary emblus) Brother Ischemic Heart Disease Brother had DVT post hosp course COPD Mother Heart Father CHF PHYSICAL EXAM: VITALS: BP (!) 152/48 Pulse 69 Temp 36.9 C (98.5 F) (Temporal) Resp 16 Wt 96.8 kg (213 lb 6.5 oz) SpO2 97% BMI 37.80 kg/m General appearance: Alert, NAD Neck: Supple neck. JVD not present at 45 degrees of incline. Respiratory: Bilateral diffuse wheezing. No rhonchi or rales. Diaphragmatic excursion and chest wall symmetry appear equal and normal. No accessory muscle use. Cardiovascular: RRR without gallop, or rubs. There is a 1/6 murmur best heard in the LLSB. Non-displaced PMI. No parasternal heave. Trace peripheral edema noted in the right lower extremity. Upper extremities appear normal. Normal temperature of all 4 extremities. Abdomen/GI: Abdomen soft, non-tender, non-distended. No masses or organomegaly noted. Liver nonpulsitile. No hepatojugular reflux. Extremities: No clubbing or cyanosis of fingers. No cracking, pitting or petechiae on fingers. Capillary refill <2 sec bilaterally. Musculoskeletal: Spine shows no kyphosis or scoliosis. Muscles show no clear abnormality. Skin: No petechiae, ecchymoses, rash noted. Neuro: Oriented X 3. Normal mood and affect. DATA: Diagnostic tests reviewed for today's visit, films/specimens were personally reviewed by me: Most recent lab and imaging results Right Heart Catheterization on 07/05/2014 significant for * Right atrium mean: 0 mmHg. * Pulmonary wedge: 5 mmHg * Pulmonary artery: 56/8 with mean of 25 mmHg. * Cardiac output: 8.3 * Cardiac index: 3.77 (based on BSA of 2.2 m2, weight of 106.3 kg and height of 163.6 cm) PVR 2.4 Otero Echocardiogram : normal RV size and function SHARIFA SHARIFA by EIA (OD Ratio) Date Value 04/29/2012 0.3 Rheumatoid Factor Rheumatoid Factor (IU/mL) Date Value 08/09/2003 5 TSH TSH (uU/mL) Date Value 10/10/2010 2.270 HIV HIV 1 & 2 Ab (EIA) (no units) Date Value 04/29/2012 Non Reactive ] Hepatitis B Surface Antigen HBsAg (no units) Date Value 04/29/2012 Negative Hepatitis C Hep C Antibody IA (no units) Date Value 04/29/2012 Negative NT PRO BNP Lab Results Component Value Date PBNP 184 (H) 03/26/2023 PBNP 96 03/27/2022 PBNP 68 03/21/2021 Chemistries Lab Results Component Value Date NA 137 03/26/2023 NA 138 03/27/2022 NA 135 (L) 03/21/2021 K 4.6 03/26/2023 K 4.4 03/27/2022 K 4.4 03/21/2021 CHLOR 101 03/26/2023 CHLOR 102 03/27/2022 CHLOR 99 03/21/2021 CO2 27 03/26/2023 CO2 26 03/27/2022 CO2 29 03/21/2021 BUN 14 03/26/2023 BUN 13 03/27/2022 BUN 13 03/21/2021 CREAT 0.70 03/26/2023 CREAT 0.60 03/27/2022 CREAT 0.65 03/21/2021 EGFROTH 94 03/26/2023 EGFROTH 98 03/27/2022 EGFROTH >60 03/21/2021 GLUC 167 (H) 03/26/2023 GLUC 124 (H) 03/27/2022 GLUC 236 (H) 03/21/2021 ANION 9 03/26/2023 ANION 10 03/27/2022 ANION 7 (L) 03/21/2021 Liver Function Lab Results Component Value Date AST 20 03/26/2023 AST 19 03/27/2022 AST 16 03/21/2021 ALT 20 03/26/2023 ALT 19 03/27/2022 ALT 19 03/21/2021 ALKPHOS 92 03/26/2023 ALKPHOS 103 03/27/2022 ALKPHOS 94 03/21/2021 TBILI 0.4 03/26/2023 TBILI 0.4 03/27/2022 TBILI 0.5 03/21/2021 CBC Lab Results Component Value Date HB 9.6 (L) 03/26/2023 HB 12.9 03/27/2022 HB 15.7 (H) 03/21/2021 HCT 36.6 03/26/2023 HCT 43.0 03/27/2022 HCT 48.6 (H) 03/21/2021 WBC 6.24 03/26/2023 WBC 8.28 03/27/2022 WBC 8.58 03/21/2021 PLT 248 03/26/2023 PLT 238 03/27/2022 PLT 183 03/21/2021 PFT: PFT: ADALID/LUNG VOL/DLCO ([id number]) - ordered on 05/09/14 Pred LLN Pre- % Post- % % chg Date [id number] Time 01:14PM 02:01PM -------- Height 163 163 Weight 108.9 108.9 -------- FVC 3.33 2.63 2.29 69 2.28 68 [...] 19.54 30.57 56 FET 13.98 10.90 -22 -------- -------- -------- -------- FRCpl 2.87 1.81 3.34 116 ERV 0.31 RV 2.00 1.22 3.04 152 VC 3.33 2.63 2.46 74 TLC 5.08 4.00 5.50 108 RV%TLC 39.31 28.31 55.20 140 -------- DLCO 21.69 15.18 15.88 73 DL/VA 4.44 3.12 4.00 90 VA 5.09 3.99 3.98 78 GABINO 3.33 2.63 2.20 66 -------- -------- -------- 28.2002 Test no. 3 05/09/2014 06:18:09PM PRE: [...] seal during equilibration. DLCO not hemoglobin corrected. //VA Impression: 1. Baseline spirometry indicates moderately severe [...] Reviewer: Alan Land M.D. PFT: ADALID/LUNG VOL/DLCO ([id number]) - ordered on 09/17/12 Pred LLN Pre- % Date [id number] Time 10:48AM Height 163 Weight 126 FVC [...] and agree with the transcribed interpretation. Signature: ___ Staff Reviewer: Alan Land M.D. 6MWD: Mara Jaye M, MAINTENANCE PAINTER 03/27/2022 1:25 PM Signed RESPIRATORY THERAPY SIX MINUTE WALK TEST OXIMETRY REPORT Six Minute Walk Test for This Encounter Oxygen Device Liters FIO2 SpO2% HR Activity Feet Speed (MPH) Flag R/A 95 85 Resting NC 6 100 87 Resting NC 6 95 131 Six Minute Walk 780 1.5 NC 6 95 121 Recovery 1 minute post NC 6 98 112 Recovery 2 minute post NC 6 100 106 Recovery 3 minute post General Information Height Weight Smoking Status Pulse Oximetry Site Oximeter Pre Blood Pressure Post Blood Pressure Total Time Spent (min) 160.2 cm (5' 3.07 ) 89 kg (196 lb 3.2 oz) Ex-smoker Forehead Masimo 149/67 187/81 30 _ Distance Walked (meters) Distance Walked (feet) Female Predicted Walk Distance (feet) Female Lower Limit of Normal (feet) Female % Predicted Total Duration Of The Stops (seconds) 237.74 780 1339.24 883.24 58.2 15 _ Lowest SpO2 During 6 Minute Walk Pre-Micheal Dyspnea Rating Pre-Micheal Fatigue Rating Post Micheal Dyspnea Rating Post Micheal Fatigue Rating O2 Supply Carrier Walking Assistance/Device 94 % 2 3 6 7 3 Wheel Walker 3 Wheel Walker Six Minute Walk Trend (Previous Encounters) Test Date Distance Walked (feet) Oxygen Device Liters FIO2 SpO2% Micheal Dyspnea Rating Micheal Fatigue Rating 03/21/2021 680 NC 6 85 7 8 02/09/2020 585 NC 6 91 10 10 09/23/2017 690 NRB 15 98 7 8 SIGNATURE: Jaye Terry RRT PATIENT NAME: Agustina Garcia DATE: March 27, 2022 TIME: 1:24 PM The patient completed the six minute walk test with 1 stop. Total Duration Of The Stops (seconds): 15. The patient required Nasal Cannula Liters: 6 to complete the test. The distance the patient walked in six minutes is moderately reduced. The six minute walk distance today demonstrates a clinically significant decrease (380 feet decrease), when compared to the historically highest six minute walk distance from a test dated 03/19/09. Today's distance represents a 100 feet increase compared to the last visit on 03/21/21. The patient perceived their dyspnea during the six minute walk test to be 6 - on the modified Micheal scale. The patient perceived their fatigue during the six minute walk test to be 7-Very severe on the modified Micheal scale. I have reviewed the findings and made appropriate revisions as needed. SIGNATURE: William Muse MD PATIENT NAME: Agustina Garcia DATE: March 28, 2022 TIME: 11:[address] Chest 03/21/2021 Compared to the exam dated 10/06/2017, there has been no significant interval change. More specifically, 1. Again demonstrated are findings consistent with sequelae of chronic thromboembolic disease as described in the body of the report. Overall, there is been no significant interval change in the disease burden since the exam dated 10/06/2017. 2. The main and central pulmonary arteries remain dilated, a finding which may be associated with pulmonary hypertension. 3. Multiple perfusion defects are again demonstrated on the PBV maps. These defects are associated with bronchial artery collaterals. 4. Again demonstrated are pulmonary parenchymal findings consistent with sequelae of chronic thromboembolic disease. on 10/06/2017 significant for1. Findings consistent with chronic thromboembolic disease as [...] Lung findings consistent with chronic thromboembolic disease. V/Q scan 03/20/2021 High probability of age-indeterminate pulmonary embolism with multiple perfusion defects bilaterally, progressed from the prior V/Q scan. on 10/06/2017 significant for There are a few small matched ventilation/perfusion abnormalities in both lungs, including in the mid right and left lungs. No mismatched perfusion defects are seen. PAgram on 07/05/2014 Pulmonary angiography demonstrates no acute filling defects to suggest acute pulmonary emboli, but there are findings of sequelae of remote/chronic pulmonary emboli, which are more extensive on the left side than the right. These findings include dilatation of the central pulmonary arteries, with mural irregularity from prior thrombus seen along the inferior aspect of the left main pulmonary artery, which extends to involve the left lower lobe artery. This left lower lobe artery is stenotic proximally (best demonstrated on the RIVAS projection) with multiple lower lobe segmental arteries being occluded. Similar but more subtle mural changes in present in the right interlobar artery. There are segmental stenoses present, such as demonstrated in the proximal aspects of the right upper lobe segments, particularly the apical segment. The perfusion phase images show decreased perfusion to the left lower lobe as well as two segmental defects on the right. Assessment and Plan: Agustina Garcia is a 65 year old female who presents for evaluation of pulmonary hypertension. 1) CTEPH NYHA class 3, stable - Current treatment includes:sildenafil 60 mg tid and ambrisentan 10 mg daily - clinical worsening due to new anemia - testing UTD: N/A - furosemide 40 mg bid and spironolactone 50 mg daily; dry weight approximately 213, - Anticoagulation: warfarin. Follows with coumadin clinic - Low sodium diet and daily weight assessment by patient were discussed. - Pulmonary rehab needs:NA - Oxygen needs:currently on 2 at rest, 6 with exertion and 2 at night - Sleep Apnea Management:NA Overall stable, normal RV on echo, She has had surgical CTEPH for 20 years, and has done remarkably and surprisingly well on dual medical therapy only 2) COPD: moderately obstruction as per last PFTS, GOLD C, no exacerbations in the last year Continue with triple therapy: breo-ellipta and spiriva Continue with home oxygen 3) New anemia, likely iron deficiency: stopped taking oral iron abut a year ago due to severe constipation. Negative EGD/colonoscopy and MMG 3 years ago. I will send iron studies here. Will discuss further eval with her PCP. She may benefit form IV iron infusions. RTC in 6 months with labs, walk and echo, sooner if needed Agustina Ochoa MD documented in this encounter [facility] 03-26-2023 History of Presen t illness Narrative PT unable to perform the 6MWT, Due to her breathing. Dr Ochoa was made aware.//JR documented in this encounter [facility] 03-26-2023 Miscellaneous Notes Orders placed and I notified Agustina's daughter Afia. Clarisse Sapp MSN, WASHER AND CAPPER MACHINE OPERATOR Clinical Nurse Specialist, Pulmonary Hypertension March 26, 2023 10:58 AM Admin spoke with pt who stated she is in office today, 03/26/23. Pt stated she went to get her blood work done but they do not have any orders. Pt calling to request for blood work orders to be added to her chart so she can complete the testing. documented in this encounter [facility] 08-20-2022 Miscellaneous Notes PA submitted for sildenafil for maximum of 360 tablets for 30 day supply. Patient currently on 60 mg TID. [place]: [id number] - PA . Will notify patient once response received. Kingsley Madsen PharmD Pulmonology Clinical Internal Controls Analyst documented in this encounter [facility] 08-20-2022 Miscellaneous Notes Sildenafil Issue The patient has a 6 day supply of Sildenafil 60 mg, TID. She is awaiting for a new PA. I went over Goodrx options if the PA is not approved by that time. Will monitor. Wilson [place], RN PH & HHT Oil Driller Respiratory [place] [facility] documented in this encounter [facility] 08-05-2022 Miscellaneous Notes Patient called about sildenafil. They need a PA for her to get her supply of 3 tablets, 3 times a day. She gets a 90 day supply from [employer]. Insurance is [place]. Please submit PA. Ok to call patient with questions/updates. documented in this encounter [facility] 05-01-2022 Miscellaneous Notes Patient is almost out of medication, she said [employer] has tried to contact our office for new script. documented in this encounter [facility] 03-27-2022 History of Presen t illness Narrative [facility] Return Visit March 28, 2022 I had the pleasure of seeing Agustina Garcia in consultation for continued evaluation and and management of Pulmonary Hypertension. Summary of this visit and my recommendations will be relayed to the referring physician and primary care physician by way of electronic communication or by mail. PCP: Anika Pedraza DO Referring Provider: Self HPI: Ms. Garcia is a 65 year old female with a PMH of CTEPH, who presents today for evaluation of pulmonary hypertension. Since the Prior Visit: Recovered from COPD exacerbation Shortness of breath at rest:Yes Shortness of breath w/ exertion: yes FC 3 Orthopnea:Yes PND:No Edema:Yes Chest Pain:No Palpitations:No Dizziness/Lightheadedness:Yes Syncope:No Adheres to a low salt diet: No Regular Exercise: No REVIEW OF SYSTEMS: Negative for joint or back pain, weight loss, fever, KEATING, cough, wheezing, chest pain, leg swelling, syncope, palpitations. No nausea, vomiting, diarrhea, rash, bleeding. A complete ROS was performed all others systems are negative MEDICATIONS:PAST MEDICAL HISTORY: PAST MEDICAL HISTORY Diagnosis Date Agoraphobia with panic disorder Anxiety Atrial fib/flutter, transient COPD (chronic obstructive pulmonary disease) (HCC) Diabetes (HCC) DVT (deep venous thrombosis) (HCC) Lupus anticoagulant (LAC) with hemorrhagic disorder Mixed hyperlipidemia Obesity, unspecified Phlebitis and thrombophlebitis of unspecified site Pulmonary emboli (HCC) Pulmonary embolism and infarction Pulmonary hypertension (HCC) Pulmonary hypertension (HCC) Rosacea TIA (transient ischemic attack) Unspecified essential hypertension PAST SURGICAL HISTORY Procedure Laterality Date CHOLECYSTECTOMY 1984 COLONOSCOPY FLX DX W/COLLJ SPEC WHEN PFRMD 06/13/2019 Colonoscopy CORRECT BUNION,SIMPLE DILATION & CURETTAGE DX&/THER NONOBSTETRIC ESOPHAGOGASTRODUODENOSCOPY TRANSORAL DIAGNOSTIC 06/13/2019 EGD PAST SURGICAL HISTORY OF 08/12 vena cava filter placement RPR UMBILICAL HERNIA < 5 YRS REDUCIBLE MEDICATIONS: fluticasone-vilanterol (BREO ELLIPTA) 200-25 mcg/dose inhaler^Inhale 1 Inhalation as instructed once daily.^Disp: 60 Each^Rfl: 5 tiotropium (SPIRIVA) 18 mcg inhalation capsule^Inhale 1 capsule as instructed once daily. with HandiHaler^Disp: 90 capsule^Rfl: 3 sildenafil (REVATIO) 20 mg tablet^Take 3 tablets by mouth three times daily.^Disp: 810 tablet^Rfl: 3 ambrisentan (LETAIRIS) 10 mg tablet^Take 1 tablet by mouth once daily.^Disp: 90 tablet^Rfl: 3 albuterol HFA (VENTOLIN HFA) 90 mcg/actuation inhaler^Ventolin HFA 90 mcg/actuation aerosol inhaler^Disp: ^Rfl: fluticasone (FLONASE) 50 mcg/actuation nasal spray^fluticasone propionate 50 mcg/actuation nasal spray,suspension^Disp: ^Rfl: COMPOUNDED PRESCRIPTION^OXYGEN uses 6 L oxygen per simple green mask 24 hours per day.^Disp: 1 Device^Rfl: 0 warfarin (COUMADIN) 1 mg tablet^Take 1 mg by mouth daily as directed. ^Disp: ^Rfl: 0 pravastatin (PRAVACHOL) 40 mg tablet^Take 1 tablet by mouth daily at bedtime.^Disp: ^Rfl: 0 tolterodine (DETROL) 2 mg tablet^Take 2 mg by mouth once daily. ^Disp: ^Rfl: 0 OLANZapine (ZYPREXA) 2.5 mg tablet^Take 1 tablet by mouth daily at bedtime.^Disp: ^Rfl: 0 spironolactone (ALDACTONE) 50 mg tablet^Take 1 tablet by mouth once daily.^Disp: 30 tablet^Rfl: 3 Miscellaneous Medical Supply misc^LABWORK: Basic Metabolic Panel. Please fax results to [phone]. DX: V58.69^Disp: 1 Each^Rfl: 0 furosemide (LASIX) 40 mg tablet^Take 1 tablet by mouth twice daily.^Disp: 60 tablet^Rfl: 3 potassium chloride SR 20 mEq tablet^Take 1 tablet by mouth three times daily.^Disp: ^Rfl: COMPOUNDED PRESCRIPTION^LABWORK: Basic Metabolic Panel. Please fax results to [phone]. DX: V58.69^Disp: 1 Each^Rfl: 3 warfarin (COUMADIN) 3 mg tablet^Take 1 tablet by mouth daily as directed.^Disp: ^Rfl: 0 Diltiazem HCl (CARDIZEM CD) 360 mg 24 hr capsule^Take 1 capsule by mouth once daily.^Disp: ^Rfl: 0 alprazolam(XANAX 1 MG TAB)^2-3 tablets per day for anxiety^Disp: ^Rfl: 0 ALLERGIES: ALLERGIES Allergen Reactions Nitrates Other: See Comments Nitro Other: See Comments Adhesive Tape (Leeanne* SOCIAL HISTORY: Social History Tobacco Use Smoking status: Former Packs/day: 1.00 Years: 8.00 Pack years: 8.00 Types: Cigarettes Quit date: 07/20/1981 Years since quittin.7 Smokeless tobacco: Never Tobacco comments: Quit tobacco in 1981 Vaping Use Vaping Use: Never used Substance Use Topics Alcohol use: No Drug use: No FAMILY HISTORY: FAMILY HISTORY Problem Relation Age of Onset other (pulmonary emblus) Brother Ischemic Heart Disease Brother had DVT post hosp course COPD Mother Heart Father CHF PHYSICAL EXAM: VITALS: BP 148/60 Pulse 92 Temp 37 C (98.6 F) Resp 18 Ht 160 cm (5' 3 ) Wt 89 kg (196 lb 3.4 oz) SpO2 97% BMI 34.76 kg/m General appearance: Alert, NAD Neck: Supple neck. MJVD not present at 45 degrees of incline. Respiratory: Bilateral diffuse wheezing. No rhonchi or rales. Diaphragmatic excursion and chest wall symmetry appear equal and normal. No accessory muscle use. Cardiovascular: RRR without gallop, or rubs. There is a 1/6 murmur best heard in the LLSB. Non-displaced PMI. No parasternal heave. Trace peripheral edema noted in the right lower extremity. Upper extremities appear normal. Normal temperature of all 4 extremities. Abdomen/GI: Abdomen soft, non-tender, non-distended. No masses or organomegaly noted. Liver nonpulsitile. No hepatojugular reflux. Extremities: No clubbing or cyanosis of fingers. No cracking, pitting or petechiae on fingers. Capillary refill <2 sec bilaterally. Musculoskeletal: Spine shows no kyphosis or scoliosis. Muscles show no clear abnormality. Skin: No petechiae, ecchymoses, rash noted. Neuro: Oriented X 3. Normal mood and affect. DATA: Diagnostic tests reviewed for today's visit, films/specimens were personally reviewed by me: Most recent lab and imaging results Right Heart Catheterization on 07/05/2014 significant for * Right atrium mean: 0 mmHg. * Pulmonary wedge: 5 mmHg * Pulmonary artery: 56/8 with mean of 25 mmHg. * Cardiac output: 8.3 * Cardiac index: 3.77 (based on BSA of 2.2 m2, weight of 106.3 kg and height of 163.6 cm) PVR 2.4 Otreo Echocardiogram 03/27/2022 LEFT VENTRICLE The left ventricle is normal in size. There is mild left ventricular hypertrophy. Left ventricular systolic function is normal. Grade I left ventricular diastolic dysfunction. Mitral annular lateral E/e': 8.3. Mitral annular septal E/e': 11.3. Wall Motion: All scored segments are normal. RIGHT VENTRICLE The right ventricle is normal in size. Right ventricular systolic function is normal. RV systolic tissue Doppler velocity is 16.0 cm/s. Tricuspid annular displacement is 2.3 cm. LEFT ATRIUM The left atrial cavity is normal in size. Pulmonary Veins: The pulmonary venous pattern showed normal systolic flow. RIGHT ATRIUM The right atrial cavity is normal in size. MITRAL VALVE There is mild mitral annular calcification observed posterior. There is trace mitral valve regurgitation. There is mild thickening. The pressure half time is 68 msec. The peak mitral E/A ratio is 0.94. The average mitral E/e' ratio is 9.8. The mitral flow deceleration time is 234 msec. TRICUSPID VALVE There is trace tricuspid valve regurgitation. There is mild thickening. The hepatic venous pattern showed blunted systolic flow. AORTIC VALVE There is trace aortic valve regurgitation. Tricuspid aortic valve. There is mild thickening. There is mild calcification. The peak gradient is 10 mmHg (peak velocity = 161.4 cm/s). PULMONIC VALVE The pulmonic valve was not seen or not interrogated. AORTA The visualized aorta is normal in size. Measurements - Sinus: 3.7 cm. Mid ascending aorta 3.6 cm. Arch and descending thoracic aorta not visualized. PULMONARY ARTERIES The pulmonary arteries are unseen or not interrogated. INTERATRIAL SEPTUM There is no evidence of intracardiac shunting as detected by agitated saline contrast with valsalva. PERICARDIUM There is an epicardial fat pad. Impression CONCLUSIONS: - Exam indication: CTEPH, Shortness of breath - The left ventricle is normal in size. There is mild left ventricular hypertrophy. Left ventricular systolic function is normal. EF = 64 5% (2D biplane) - The right ventricle is normal in size. Right ventricular systolic function is normal. - Agitated saline contrast study appears negative for shunt flow (clips 87 & 89). Even post saline, inadequate TR signal to allow for an estimate of RVSP. - Exam was compared with the prior CC echocardiographic exam performed on 03/21/2021. No significant change. SHARIFA SHARIFA by EIA (OD Ratio) Date Value 04/29/2012 0.3 Rheumatoid Factor Rheumatoid Factor (IU/mL) Date Value 08/09/2003 5 TSH TSH (uU/mL) Date Value 10/10/2010 2.270 HIV HIV 1 & 2 Ab (EIA) (no units) Date Value 04/29/2012 Non Reactive ] Hepatitis B Surface Antigen HBsAg (no units) Date Value 04/29/2012 Negative Hepatitis C Hep C Antibody IA (no units) Date Value 04/29/2012 Negative NT PRO BNP Lab Results Component Value Date PBNP 96 03/27/2022 PBNP 68 03/21/2021 PBNP 66 02/09/2020 Chemistries Lab Results Component Value Date NA 138 03/27/2022 NA 135 (L) 03/21/2021 NA 133 (L) 02/09/2020 K 4.4 03/27/2022 K 4.4 03/21/2021 K 4.3 02/09/2020 CHLOR 102 03/27/2022 CHLOR 99 03/21/2021 CHLOR 96 (L) 02/09/2020 CO2 26 03/27/2022 CO2 29 03/21/2021 CO2 24 (L) 03/28/2020 BUN 13 03/27/2022 BUN 13 03/21/2021 BUN 12 02/09/2020 CREAT 0.60 03/27/2022 CREAT 0.65 03/21/2021 CREAT 0.80 03/21/2021 EGFROTH 98 03/27/2022 EGFROTH >60 03/21/2021 EGFROTH >60 03/21/2021 GLUC 124 (H) 03/27/2022 GLUC 236 (H) 03/21/2021 GLUC 154 (H) 02/09/2020 ANION 10 03/27/2022 ANION 7 (L) 03/21/2021 ANION 11 02/09/2020 Liver Function Lab Results Component Value Date AST 19 03/27/2022 AST 16 03/21/2021 AST 20 02/09/2020 ALT 19 03/27/2022 ALT 19 03/21/2021 ALT 26 02/09/2020 ALKPHOS 103 03/27/2022 ALKPHOS 94 03/21/2021 ALKPHOS 99 02/09/2020 TBILI 0.4 03/27/2022 TBILI 0.5 03/21/2021 TBILI 0.3 02/09/2020 CBC Lab Results Component Value Date HB 12.9 03/27/2022 HB 15.7 (H) 03/21/2021 HB 11.0 (L) 02/09/2020 HCT 43.0 03/27/2022 HCT 48.6 (H) 03/21/2021 HCT 40.0 02/09/2020 WBC 8.28 03/27/2022 WBC 8.58 03/21/2021 WBC 7.71 02/09/2020 PLT 238 03/27/2022 PLT 183 03/21/2021 PLT 283 02/09/2020 PFT: PFT: ADALID/LUNG VOL/DLCO ([id number]) - ordered on 05/09/14 Pred LLN Pre- % Post- % % chg Date [id number] Time 01:14PM 02:01PM -------- Height 163 163 Weight 108.9 108.9 -------- FVC 3.33 2.63 2.29 69 2.28 68 [...] 19.54 30.57 56 FET 13.98 10.90 -22 -------- -------- -------- -------- FRCpl 2.87 1.81 3.34 116 ERV 0.31 RV 2.00 1.22 3.04 152 VC 3.33 2.63 2.46 74 TLC 5.08 4.00 5.50 108 RV%TLC 39.31 28.31 55.20 140 -------- DLCO 21.69 15.18 15.88 73 DL/VA 4.44 3.12 4.00 90 VA 5.09 3.99 3.98 78 GABINO 3.33 2.63 2.20 66 -------- -------- -------- 28.2002 Test no. 3 05/09/2014 06:18:09PM PRE: [...] seal during equilibration. DLCO not hemoglobin corrected. //[place] Impression: 1. Baseline spirometry indicates moderately severe [...] Reviewer: Alan Land M.D. PFT: ADALID/LUNG VOL/DLCO ([id number]) - ordered on 09/17/12 Pred LLN Pre- % Date [id number] Time 10:48AM Height 163 Weight 126 FVC [...] and agree with the transcribed interpretation. Signature: ___ Staff Reviewer: Alan Land M.D. 6MWD: Jaye Terry, MAINTENANCE PAINTER 03/27/2022 1:25 PM Cosign Needed RESPIRATORY THERAPY SIX MINUTE WALK TEST OXIMETRY REPORT Six Minute Walk Test for This Encounter Oxygen Device Liters FIO2 SpO2% HR Activity Feet Speed (MPH) Flag R/A 95 85 Resting NC 6 100 87 Resting NC 6 95 131 Six Minute Walk 780 1.5 NC 6 95 121 Recovery 1 minute post NC 6 98 112 Recovery 2 minute post NC 6 100 106 Recovery 3 minute post General Information Height Weight Smoking Status Pulse Oximetry Site Oximeter Pre Blood Pressure Post Blood Pressure Total Time Spent (min) 160.2 cm (5' 3.07 ) 89 kg (196 lb 3.2 oz) Ex-smoker Forehead Masimo 149/67 187/81 30 _ Distance Walked (meters) Distance Walked (feet) Female Predicted Walk Distance (feet) Female Lower Limit of Normal (feet) Female % Predicted Total Duration Of The Stops (seconds) 237.74 780 1339.24 883.24 58.2 15 _ Lowest SpO2 During 6 Minute Walk Pre-Micheal Dyspnea Rating Pre-Micheal Fatigue Rating Post Micheal Dyspnea Rating Post Micheal Fatigue Rating O2 Supply Carrier Walking Assistance/Device 94 % 2 3 6 7 3 Wheel Walker 3 Wheel Walker Six Minute Walk Trend (Previous Encounters) Test Date Distance Walked (feet) Oxygen Device Liters FIO2 SpO2% Micheal Dyspnea Rating Micheal Fatigue Rating 03/21/2021 680 NC 6 85 7 8 02/09/2020 585 NC 6 91 10 10 09/23/2017 690 NRB 15 98 7 8 SIGNATURE: Jaye Terry, MAINTENANCE PAINTER PATIENT NAME: Agustina Garcia DATE: March 27, 2022 TIME: 1:[address] Chest 03/21/2021 Compared to the exam dated 10/06/2017, there has been no significant interval change. More specifically, 1. Again demonstrated are findings consistent with sequelae of chronic thromboembolic disease as described in the body of the report. Overall, there is been no significant interval change in the disease burden since the exam dated 10/06/2017. 2. The main and central pulmonary arteries remain dilated, a finding which may be associated with pulmonary hypertension. 3. Multiple perfusion defects are again demonstrated on the PBV maps. These defects are associated with bronchial artery collaterals. 4. Again demonstrated are pulmonary parenchymal findings consistent with sequelae of chronic thromboembolic disease. on 10/06/2017 significant for1. Findings consistent with chronic thromboembolic disease as [...] Lung findings consistent with chronic thromboembolic disease. V/Q scan 03/20/2021 High probability of age-indeterminate pulmonary embolism with multiple perfusion defects bilaterally, progressed from the prior V/Q scan. on 10/06/2017 significant for There are a few small matched ventilation/perfusion abnormalities in both lungs, including in the mid right and left lungs. No mismatched perfusion defects are seen. PAgram on 07/05/2014 Pulmonary angiography demonstrates no acute filling defects to suggest acute pulmonary emboli, but there are findings of sequelae of remote/chronic pulmonary emboli, which are more extensive on the left side than the right. These findings include dilatation of the central pulmonary arteries, with mural irregularity from prior thrombus seen along the inferior aspect of the left main pulmonary artery, which extends to involve the left lower lobe artery. This left lower lobe artery is stenotic proximally (best demonstrated on the RIVAS projection) with multiple lower lobe segmental arteries being occluded. Similar but more subtle mural changes in present in the right interlobar artery. There are segmental stenoses present, such as demonstrated in the proximal aspects of the right upper lobe segments, particularly the apical segment. The perfusion phase images show decreased perfusion to the left lower lobe as well as two segmental defects on the right. Assessment and Plan: Agustina Garcia is a 65 year old female who presents for evaluation of pulmonary hypertension. 1) CTEPH NYHA class 3, stable - Current treatment includes:sildenafil 60 mg tid and ambrisentan 10 mg daily - clinical worsening partially related to COPD exacerbation as below but possibility of progressive - testing UTD: N/A - furosemide 40 mg bid and spironolactone 50 mg daily; dry weight approximately 193, - Anticoagulation: warfarin. Follows with coumadin clinic - Low sodium diet and daily weight assessment by patient were discussed. - Pulmonary rehab needs:NA - Oxygen needs:currently on 2 at rest, 6 with exertion and 2 at night - Sleep Apnea Management:NA Overall stable, normal RV on echo, normal proBNP She inquired a bit more bout PTE and BPA - all questions answered to her satisfaction She has had surgical CTEPH for 20 years, and has done remarkably and surprisingly well on dual medical therapy only 2) COPD: moderately obstruction as per last PFTS, GOLD C, had flare a month ago, now recovered Will consider azithromycin 250 3 time per weeks for her chronic bronchitis variant Continue with triple therapy: co-pay for Symbicort too high, I sent a script for breo-ellipta, she is on spiriva Continue with home oxygen 3) RUE dilated and pulsatile superficial vein: will get an US, may refer t Vascular Surgery RTC in 6 months Agustina Ochoa MD documented in this encounter [facility] 03-27-2022 History of Presen t illness Narrative PULM FUNCTION SMARTBLOCK: Provider: Agustnia Ochoa MD Assisting Tech: Jaye Terry, MAINTENANCE PAINTER Spirometry w/BD: 1 DLCO: 1 LV - Box: 1 6 MW: 1 System: MC5 - [id number] documented in this encounter [facility] 01-08-2022 History of Presen t illness Narrative PULMONARY HYPERTENSION CLINIC Return Visit January 08, 2022 I had the pleasure of seeing Agustina Garcia in consultation for continued evaluation and and management of Pulmonary Hypertension. Summary of this visit and my recommendations will be relayed to the referring physician and primary care physician by way of electronic communication or by mail. PCP: Anika Pedraza DO Referring Provider: Self HPI: Ms. Garcia is a 65 year old female with a PMH of CTEPH, who presents today for evaluation of pulmonary hypertension. Since the Prior Visit: For the last 3 months she developed progressive SOB, cough, moderate expectoration of thick yellow phlegm, no fever, chills, hemoptysis but bilateral lower limb edema, she also developed orthopnea, but no PND, chest pain or loss of consciousness, for the last 2 months she didn't have her bronchodilator( technical issues). Shortness of breath at rest:Yes Shortness of breath w/ exertion: yes FC 3 Orthopnea:Yes PND:No Edema:Yes Chest Pain:No Palpitations:No Dizziness/Lightheadedness:Yes Syncope:No Adheres to a low salt diet: No Regular Exercise: No REVIEW OF SYSTEMS: Negative for joint or back pain, weight loss, fever, KEATING, wheezing, chest pain, leg swelling, syncope, palpitations. No nausea, vomiting, diarrhea, rash, bleeding. Positive for cough A complete ROS was performed all others systems are negative MEDICATIONS:PAST MEDICAL HISTORY: PAST MEDICAL HISTORY Diagnosis Date Agoraphobia with panic disorder Anxiety Atrial fib/flutter, transient COPD (chronic obstructive pulmonary disease) (HCC) Diabetes (HCC) DVT (deep venous thrombosis) (HCC) Lupus anticoagulant (LAC) with hemorrhagic disorder Mixed hyperlipidemia Obesity, unspecified Phlebitis and thrombophlebitis of unspecified site Pulmonary emboli (HCC) Pulmonary embolism and infarction Pulmonary hypertension (HCC) Pulmonary hypertension (HCC) Rosacea TIA (transient ischemic attack) Unspecified essential hypertension PAST SURGICAL HISTORY Procedure Laterality Date CHOLECYSTECTOMY 1984 COLONOSCOPY FLX DX W/COLLJ SPEC WHEN PFRMD 06/13/2019 Colonoscopy CORRECT BUNION,SIMPLE DILATION & CURETTAGE DX&/THER NONOBSTETRIC ESOPHAGOGASTRODUODENOSCOPY TRANSORAL DIAGNOSTIC 06/13/2019 EGD PAST SURGICAL HISTORY OF 08/12 vena cava filter placement RPR UMBILICAL HERNIA < 5 YRS REDUCIBLE MEDICATIONS: predniSONE (DELTASONE) 20 mg tablet^Take 2 tablets by mouth once daily for 5 days.^Disp: 10 tablet^Rfl: 0 azithromycin (ZITHROMAX) 500 mg tablet^Take 1 tablet by mouth once daily for 7 days.^Disp: 7 tablet^Rfl: 0 sildenafil (REVATIO) 20 mg tablet^Take 3 tablets by mouth three times daily.^Disp: 810 tablet^Rfl: 3 ambrisentan (LETAIRIS) 10 mg tablet^Take 1 tablet by mouth once daily.^Disp: 90 tablet^Rfl: 3 ferrous sulfate 325 mg (65 mg iron) tablet^Take 1 tablet by mouth once daily.^Disp: ^Rfl: (Patient not taking: Reported on 01/08/2022) tiotropium (SPIRIVA) 18 mcg inhalation capsule^Inhale 1 capsule as instructed once daily. with HandiHaler^Disp: 90 capsule^Rfl: 3 (Patient not taking: Reported on 01/08/2022) budesonide-formoterol (SYMBICORT) 160-4.5 mcg/actuation inhaler^Inhale 2 Puffs as instructed twice daily.^Disp: 30.6 g^Rfl: 0 albuterol HFA (VENTOLIN HFA) 90 mcg/actuation inhaler^Ventolin HFA 90 mcg/actuation aerosol inhaler^Disp: ^Rfl: fluticasone (FLONASE) 50 mcg/actuation nasal spray^fluticasone propionate 50 mcg/actuation nasal spray,suspension^Disp: ^Rfl: COMPOUNDED PRESCRIPTION^OXYGEN uses 6 L oxygen per simple green mask 24 hours per day.^Disp: 1 Device^Rfl: 0 warfarin (COUMADIN) 1 mg tablet^Take 1 mg by mouth daily as directed. ^Disp: ^Rfl: 0 pravastatin (PRAVACHOL) 40 mg tablet^Take 1 tablet by mouth daily at bedtime.^Disp: ^Rfl: 0 tolterodine (DETROL) 2 mg tablet^Take 2 mg by mouth once daily. ^Disp: ^Rfl: 0 OLANZapine (ZYPREXA) 2.5 mg tablet^Take 1 tablet by mouth daily at bedtime.^Disp: ^Rfl: 0 spironolactone (ALDACTONE) 50 mg tablet^Take 1 tablet by mouth once daily.^Disp: 30 tablet^Rfl: 3 Miscellaneous Medical Supply misc^LABWORK: Basic Metabolic Panel. Please fax results to [phone]. DX: V58.69^Disp: 1 Each^Rfl: 0 furosemide (LASIX) 40 mg tablet^Take 1 tablet by mouth twice daily.^Disp: 60 tablet^Rfl: 3 potassium chloride SR 20 mEq tablet^Take 1 tablet by mouth three times daily.^Disp: ^Rfl: COMPOUNDED PRESCRIPTION^LABWORK: Basic Metabolic Panel. Please fax results to [phone]. DX: V58.69^Disp: 1 Each^Rfl: 3 warfarin (COUMADIN) 3 mg tablet^Take 1 tablet by mouth daily as directed.^Disp: ^Rfl: 0 Diltiazem HCl (CARDIZEM CD) 360 mg 24 hr capsule^Take 1 capsule by mouth once daily.^Disp: ^Rfl: 0 alprazolam(XANAX 1 MG TAB)^2-3 tablets per day for anxiety^Disp: ^Rfl: 0 ALLERGIES: ALLERGIES Allergen Reactions Nitrates Other: See Comments Nitro Other: See Comments Adhesive Tape (Leeanne* SOCIAL HISTORY: Social History Tobacco Use Smoking status: Former Packs/day: 1.00 Years: 8.00 Pack years: 8.00 Types: Cigarettes Quit date: 07/20/1981 Years since quittin.4 Smokeless tobacco: Never Tobacco comments: Quit tobacco in 1981 Vaping Use Vaping Use: Never used Substance Use Topics Alcohol use: No Drug use: No FAMILY HISTORY: FAMILY HISTORY Problem Relation Age of Onset other (pulmonary emblus) Brother Ischemic Heart Disease Brother had DVT post hosp course COPD Mother Heart Father CHF PHYSICAL EXAM: VITALS: 01/08/22 1510 BP: (!) 136/48 Pulse: 80 Resp: 18 Temp: 37.6 C (99.6 F) TempSrc: Temporal SpO2: 92% Weight: 85.7 kg (189 lb) General appearance: Alert, NAD Neck: Supple neck. Midline trachea. JVD not present at 45 degrees of incline. Respiratory: Bilateral diffuse wheezing. No rhonchi or rales. Diaphragmatic excursion and chest wall symmetry appear equal and normal. No accessory muscle use. Cardiovascular: RRR without gallop, or rubs. There is a 1/6 murmur best heard in the LLSB. Non-displaced PMI. No parasternal heave. Trace peripheral edema noted in the right lower extremity. Upper extremities appear normal. Normal temperature of all 4 extremities. Abdomen/GI: Abdomen soft, non-tender, non-distended. No masses or organomegaly noted. Liver nonpulsitile. No hepatojugular reflux. Extremities: No clubbing or cyanosis of fingers. No cracking, pitting or petechiae on fingers. Capillary refill <2 sec bilaterally. Musculoskeletal: Spine shows no kyphosis or scoliosis. Muscles show no clear abnormality. Skin: No petechiae, ecchymoses, rash noted. Neuro: Oriented X 3. Normal mood and affect. DATA: Diagnostic tests reviewed for today's visit, films/specimens were personally reviewed by me: Most recent lab and imaging results Right Heart Catheterization on 07/05/2014 significant for * Right atrium mean: 0 mmHg. * Pulmonary wedge: 5 mmHg * Pulmonary artery: 56/8 with mean of 25 mmHg. * Cardiac output: 8.3 * Cardiac index: 3.77 (based on BSA of 2.2 m2, weight of 106.3 kg and height of 163.6 cm) PVR 2.4 [facility] Echocardiogram 03/20/2021 - The left ventricle is normal in size. There is mild concentric left ventricular hypertrophy. Left ventricular systolic function is normal. EF = 62 5% (2D biplane) Normal left ventricular diastolic function. - The right ventricle is normal in size. Right ventricular systolic function is normal. - Estimated right ventricular systolic pressure is not reported due to an insufficient tricuspid regurgitation signal. Estimated right atrial pressure is 3 mmHg based on IVC assessment. - Negative agitated saline study on prior exam 05/09/2014. - Exam was compared with the prior CC echocardiographic exam performed on 02/09/2020. There is no significant change. on 02/09/2020 significant for Primary rhythm: sinus. Height: 162.60 cm BSA: 2.16 m Weight: 103.60 kg BMI: 39.2 kg/m Heart rate 85 bpm Blood pressure 124/71 mmHg Technically difficult exam due to body habitus. Color Doppler was utilized to interrogate the cardiac valves assessed in this exam. MEASUREMENTS: Value Indexed Normal Max aortic dimension 3.7 cm Ao < 3.8 Left atrium diameter 3.5 cm (M-Mode) Left atrial volume 74 ml (biplane A-L) 34 ml/m Carol <= 34 LV ID (diastole) 1.1 cm (2D) 0.51 cm/m LV ID (systole) 3.5 cm (2D) 1.64 cm/m Posterior wall thickness 4.1 cm (2D) Left ventricular mass 119 g (2D) 55 g/m LV stroke volume 66 ml (2D biplane) LV end diastolic volume 112 ml (2D biplane) 51.8 ml/m 29<=EDVi<62 LV end systolic volume 46 ml (2D biplane) 21.3 ml/m Ejection Fraction 59 % (2D biplane) EF > 54 FINDINGS: LEFT VENTRICLE The left ventricle is normal in size. Left ventricular systolic function is normal. Left ventricular diastolic function was not evaluated due to E/A fusion. Wall Motion: All scored segments are normal. RIGHT VENTRICLE The right ventricle is normal in size. Right ventricular systolic function is normal. RV systolic tissue Doppler velocity is 16.0 cm/s. Tricuspid annular displacement is 2.4 cm. Estimated right ventricular systolic pressure is not reported due to an insufficient tricuspid regurgitation signal. Estimated right atrial pressure is not included as the IVC was not seen. LEFT ATRIUM The left atrial cavity is mildly dilated. RIGHT ATRIUM The right atrial cavity is normal in size. MITRAL VALVE The mitral valve leaflets are structurally normal. There is trace mitral valve regurgitation. TRICUSPID VALVE The tricuspid valve leaflets are structurally normal. There is trace tricuspid valve regurgitation. AORTIC VALVE The aortic valve cusps are structurally normal. There is no aortic valve regurgitation. Tricuspid aortic valve. PULMONIC VALVE The pulmonic valve was not seen or not interrogated. There is no pulmonic valve regurgitation. AORTA The visualized aorta is normal in size. Measurements - Sinus: 3.7 cm. Mid ascending aorta 2.8 cm. PULMONARY ARTERIES The pulmonary arteries are unseen or not interrogated. PERICARDIUM The pericardium is normal. There is no pericardial effusion. Impression CONCLUSIONS: - Technically difficult exam due to body habitus. - Exam indication: PHTN - The left ventricle is normal in size. Left ventricular systolic function is normal. EF = 59 5% (2D biplane) - The right ventricle is normal in size. Right ventricular systolic function is normal. - The left atrial cavity is mildly dilated. - There are no significant valvular abnormalities. - Exam was compared with the prior echocardiographic exam performed on 09/23/2017. SHARIFA SHARIFA by EIA (OD Ratio) Date Value 04/29/2012 0.3 Rheumatoid Factor Rheumatoid Factor (IU/mL) Date Value 08/09/2003 5 TSH TSH (uU/mL) Date Value 10/10/2010 2.270 HIV HIV 1 & 2 Ab (EIA) (no units) Date Value 04/29/2012 Non Reactive ] Hepatitis B Surface Antigen HBsAg (no units) Date Value 04/29/2012 Negative Hepatitis C Hep C Antibody IA (no units) Date Value 04/29/2012 Negative NT PRO BNP Lab Results Component Value Date PBNP 68 03/21/2021 PBNP 66 02/09/2020 PBNP <50 06/08/2019 Chemistries Lab Results Component Value Date NA 135 (L) 03/21/2021 NA 133 (L) 02/09/2020 NA 136 06/08/2019 K 4.4 03/21/2021 K 4.3 02/09/2020 K 4.1 06/08/2019 CHLOR 99 03/21/2021 CHLOR 96 (L) 02/09/2020 CHLOR 100 06/08/2019 CO2 29 03/21/2021 CO2 24 (L) 03/28/2020 CO2 28 03/28/2020 BUN 13 03/21/2021 BUN 12 02/09/2020 BUN 12 06/08/2019 CREAT 0.65 03/21/2021 CREAT 0.80 03/21/2021 CREAT 0.55 (L) 02/09/2020 EGFROTH >60 03/21/2021 EGFROTH >60 03/21/2021 EGFROTH >60 02/09/2020 GLUC 236 (H) 03/21/2021 GLUC 154 (H) 02/09/2020 GLUC 121 (H) 06/08/2019 ANION 7 (L) 03/21/2021 ANION 11 02/09/2020 ANION 7 (L) 06/08/2019 Liver Function Lab Results Component Value Date AST 16 03/21/2021 AST 20 02/09/2020 AST 21 03/25/2018 ALT 19 03/21/2021 ALT 26 02/09/2020 ALT 22 03/25/2018 ALKPHOS 94 03/21/2021 ALKPHOS 99 02/09/2020 ALKPHOS 95 03/25/2018 TBILI 0.5 03/21/2021 TBILI 0.3 02/09/2020 TBILI 0.5 03/25/2018 CBC Lab Results Component Value Date HB 15.7 (H) 03/21/2021 HB 11.0 (L) 02/09/2020 HB 13.6 06/08/2019 HCT 48.6 (H) 03/21/2021 HCT 40.0 02/09/2020 HCT 44.3 06/08/2019 WBC 8.58 03/21/2021 WBC 7.71 02/09/2020 WBC 8.25 06/08/2019 PLT 183 03/21/2021 PLT 283 02/09/2020 PLT 241 06/08/2019 PFT: PFT: ADALID/LUNG VOL/DLCO ([id number]) - ordered on 05/09/14 Pred LLN Pre- % Post- % % chg Date [id number] Time 01:14PM 02:01PM -------- Height 163 163 Weight 108.9 108.9 -------- FVC 3.33 2.63 2.29 69 2.28 68 [...] 19.54 30.57 56 FET 13.98 10.90 -22 -------- -------- -------- -------- FRCpl 2.87 1.81 3.34 116 ERV 0.31 RV 2.00 1.22 3.04 152 VC 3.33 2.63 2.46 74 TLC 5.08 4.00 5.50 108 RV%TLC 39.31 28.31 55.20 140 -------- DLCO 21.69 15.18 15.88 73 DL/VA 4.44 3.12 4.00 90 VA 5.09 3.99 3.98 78 GABINO 3.33 2.63 2.20 66 -------- -------- -------- 28.2002 Test no. 3 05/09/2014 06:18:09PM PRE: [...] seal during equilibration. DLCO not hemoglobin corrected. //VA Impression: 1. Baseline spirometry indicates moderately severe [...] Reviewer: Alan Land M.D. PFT: ADALID/LUNG VOL/DLCO ([id number]) - [facility] % Date [id number] Time 10:48AM Height 163 Weight 126 FVC [...] and agree with the transcribed interpretation. Signature: ___ Staff Reviewer: Alan Land M.D. 6MWD: Siri Godwin, MAINTENANCE PAINTER 03/21/2021 2:43 PM Signed RESPIRATORY THERAPY SIX MINUTE WALK TEST OXIMETRY REPORT Six Minute Walk Test for This Encounter Oxygen Device Liters FIO2 SpO2% HR Activity Feet Speed (MPH) Flag R/A 96 70 Resting NC 6 100 73 Resting NC 6 85 129 Six Minute Walk 680 1.3 NC 6 88 116 Recovery 1 minute post NC 6 98 104 Recovery 2 minute post NC 6 99 98 Recovery 3 minute post General Information Height Weight Smoking Status Pulse Oximetry Site Oximeter Pre Blood Pressure Post Blood Pressure Total Time Spent (min) 163.8 cm (5' 4.49 ) 87.7 kg (193 lb 6.4 oz) Ex-smoker Forehead Masimo 131/67 200/78 30 _ Distance Walked (meters) Distance Walked (feet) Female Predicted Walk Distance (feet) Female Lower Limit of Normal (feet) Female % Predicted Total Duration Of The Stops (seconds) 207.26 680 1392.72 936.72 48.8 -- _ Lowest SpO2 During 6 Minute Walk Pre-Micheal Dyspnea Rating Pre-Micheal Fatigue Rating Post Micheal Dyspnea Rating Post Micheal Fatigue Rating O2 Supply Carrier Walking Assistance/Device 85 % 2 3 7 8 3 Wheel Walker 3 Wheel Walker Six Minute Walk Trend (Previous Encounters) Test Date Distance Walked (feet) Oxygen Device Liters FIO2 SpO2% Micheal Dyspnea Rating Micheal Fatigue Rating 02/09/2020 585 NC 6 91 10 10 09/23/2017 690 NRB 15 98 7 8 SIGNATURE: Siri Godwin RRT PATIENT NAME: Agustina Garcia DATE: March 21, 2021 TIME: 2:43 PM _ Comments: Five minutes after test BP trending back down. Last BP 168/72 The patient completed the six minute walk test with No stops. . The patient required Nasal Cannula Liters: 6 to complete the test. The distance the patient walked in six minutes is extremely reduced. The six minute walk distance today demonstrates a clinically significant decrease (480 feet decrease), when compared to the historically highest six minute walk distance from a test dated 03/19/09. Today's distance represents a 95 feet increase compared to the last visit on 02/09/20. The patient perceived their dyspnea during the six minute walk test to be 7-Very severe on the modified Micheal scale. The patient perceived their fatigue during the six minute walk test to be 8 - on the modified Micheal scale. I have reviewed the findings and made appropriate revisions as needed. SIGNATURE: William Muse MD PATIENT NAME: Agustina Garcia DATE: March 21, 2021 TIME: 11:[address] Chest 03/21/2021 Compared to the exam dated 10/06/2017, there has been no significant interval change. More specifically, 1. Again demonstrated are findings consistent with sequelae of chronic thromboembolic disease as described in the body of the report. Overall, there is been no significant interval change in the disease burden since the exam dated 10/06/2017. 2. The main and central pulmonary arteries remain dilated, a finding which may be associated with pulmonary hypertension. 3. Multiple perfusion defects are again demonstrated on the PBV maps. These defects are associated with bronchial artery collaterals. 4. Again demonstrated are pulmonary parenchymal findings consistent with sequelae of chronic thromboembolic disease. on 10/06/2017 significant for1. Findings consistent with chronic thromboembolic disease as [...] Lung findings consistent with chronic thromboembolic disease. V/Q scan 03/20/2021 High probability of age-indeterminate pulmonary embolism with multiple perfusion defects bilaterally, progressed from the prior V/Q scan. on 10/06/2017 significant for There are a few small matched ventilation/perfusion abnormalities in both lungs, including in the mid right and left lungs. No mismatched perfusion defects are seen. PAgram on 07/05/2014 Pulmonary angiography demonstrates no acute filling defects to suggest acute pulmonary emboli, but there are findings of sequelae of remote/chronic pulmonary emboli, which are more extensive on the left side than the right. These findings include dilatation of the central pulmonary arteries, with mural irregularity from prior thrombus seen along the inferior aspect of the left main pulmonary artery, which extends to involve the left lower lobe artery. This left lower lobe artery is stenotic proximally (best demonstrated on the RIVAS projection) with multiple lower lobe segmental arteries being occluded. Similar but more subtle mural changes in present in the right interlobar artery. There are segmental stenoses present, such as demonstrated in the proximal aspects of the right upper lobe segments, particularly the apical segment. The perfusion phase images show decreased perfusion to the left lower lobe as well as two segmental defects on the right. Assessment and Plan: Agustina Garcia is a 65 year old female who presents for evaluation of pulmonary hypertension. 1) CTEPH NYHA class 3 - Current treatment includes:sildenafil 60 mg tid and ambrisentan 10 mg daily - clinical worsening partially related to COPD exacerbation as below but possibility of progressive pulmonary vasculopathy in patient with extensive CTEPH clot burden and impressive perfusion ventilation mismatch which seems to be progressive as noted in her last imaging, moreover she has progressive clinical disease, functional class progressed to IV, - will repeat CT chest, ECHO, PFTS with diffusion capacity, ECHO with agitated saline, 6 MWT, serology for APLA - if her PFTS are reassuring will discuss with her the indication for PTE, which she has been refusing - testing UTD: N/A - furosemide 40 mg bid and spironolactone 50 mg daily; dry weight approximately 193, - Anticoagulation: warfarin. Follows with coumadin clinic - Low sodium diet and daily weight assessment by patient were discussed. - Pulmonary rehab needs:NA - Oxygen needs:currently on 2 at rest, 6 with exertion and 2 at night - Sleep Apnea Management:NA 2) COPD: moderately obstruction as per last PFTS, GOLD C, Frequent bronchitic exacerbations. Currently she clinical picture suggesting COPD exacerbation with cough, expectoration, SOB, and diffuse expiratory wheezes, diffuse decrease air entry in physical exam, She stopped her Symbicort and tiotropium a few months ago Will give short course of prednisone, azithromycin, resume BD and give spacer Repeat PFT and CT images for further management Will consider azithromycin 250 3 time per weeks for her chronic bronchitis variant Not fit for LVR given her chronic bronchitis variant : pending PFTS, Ct Continue with triple therapy Continue with home oxygen ABG to exclude chronic CO2 retention and the indication for NIV All questions were answered to Agustina Garcia's satisfaction, Agustina Garcia verbalizes understanding and agrees with treatment plan and was encouraged to contact me with questions Alexa Melendrez MD January 08:17 PM [facility] ATTENDING NOTE: Above findings reviewed, confirmed and modified where necessary. I participated in and confirmed the history, examination, data review and formulation of the assessment and plan. Currently has a COPD exacerbation which we will treat with oral prednisone and azithromycin. She shall resume triple inhaler therapy as well. We gave her a spacer. We assess her CTEPH in 2 months. Shehas had surgical CTEPH for 20 years, and has done remarkably and surprisingly well on dual medical therapy only Agustina Ochoa MD documented in this encounter [facility] 01-08-2022 Instructions Alexa Melendrez MD - 01/08/2022 4:23 PM EDT - continue with Sildenafil and Ambrisentan - continue with aldactone and Lasix - resume bronchodilators - will order spacer - will start short course prednisone for possible COPD exacerbation - Azithromycin 500 mg daily for one week - will order PFTS with lung volume and DLCO - ECHO with agitated saline - serology for antiphospholipid antibody syndrome - hypercoagulable panel - CBC - CMP - BNP documented in this encounter [facility] Diagnosis CTEPH (chronic thromboembolic pulmonary hypertension) (HCC)- Primary Other chronic pulmonary heart diseases COPD with exacerbation (HCC) Obstructive chronic bronchitis with exacerbation [facility] Diagnosis Chronic obstructive pulmonary disease, unspecified COPD type (HCC) [facility] Diagnosis Dyspnea and respiratory abnormalities- Primary Other dyspnea and respiratory abnormality [facility] Diagnosis Dyspnea and respiratory abnormalities- Primary Other dyspnea and respiratory abnormality [facility] Diagnosis CTEPH (chronic thromboembolic pulmonary hypertension) (HCC)- Primary Other chronic pulmonary heart diseases [facility] Diagnosis SOB (shortness of breath) Shortness of breath [facility] Diagnosis CTEPH (chronic thromboembolic pulmonary hypertension) (HCC)- Primary Other chronic pulmonary heart diseases Chronic obstructive pulmonary disease, unspecified COPD type (HCC) Dyspnea, unspecified type [facility] Diagnosis Pulmonary arterial hypertension (HCC) Other chronic pulmonary heart diseases [facility] Diagnosis Pulmonary arterial hypertension (HCC) Other chronic pulmonary heart diseases [facility] Diagnosis Pulmonary arterial hypertension (HCC)- Primary Other chronic pulmonary heart diseases Dyspnea and respiratory abnormalities Other dyspnea and respiratory abnormality [facility] Diagnosis CTEPH (chronic thromboembolic pulmonary hypertension) (HCC)- Primary Other chronic pulmonary heart diseases Chronic obstructive pulmonary disease, unspecified COPD type (HCC) Other iron deficiency anemia Dyspnea, unspecified type [facility] Diagnosis Pulmonary arterial hypertension (HCC) Other chronic pulmonary heart diseases documented in this encounter [facility] for referral (narrative)* Outpatient Procedure (Routine) - Pending Review Specialty Diagnoses / Procedures Referred By Contac t Referred To Contact [facility] [place] Diagnoses SOB (shortness of breath) Procedures ECHO WITH AGITATED SALINE CONTRAST ECHO TRANSTHORAC R-T 2D W/WO M-MODE REC COMP Ngoc Thompson APRN.CNS [address] [place] [address] [facility] [address] [address] Referral ID Status Reason Start Date Expiration Date Visits Requested Visits Authorized [id number] Pending Review Auto-Generat ed Referral 08/01/2021 08/01/2022 1 1 [facility] for referral (narrative)* Outpatient Procedure (Routine) - Pending Review Specialty Diagnoses / Procedures Referred By Contac t Referred To [facility] Diagnoses CTEPH (chronic thromboembolic pulmonary hypertension) (HCC) Procedures ECHO WITH AGITATED SALINE CONTRAST ECHO TRANSTHORAC R-T 2D W/WO M-MODE REC COMP Agustina Ochoa MD [address] [place] [address] [facility] [address] [address] Referral ID Status Reason Start Date Expiration Date Visits Requested Visits Authorized [id number] Pending Review Auto-Generat ed Referral 01/08/2022 01/08/2023 1 1 [facility] for referral (narrative)* Outpatient Procedure (Routine) - Closed Specialty Diagnoses / Procedures Referred By Contac t Referred To [facility] [place] Diagnoses CTEPH (chronic thromboembolic pulmonary hypertension) (HCC) Procedures SIX MINUTE WALK CARDIOPULMONARY EXERCISE STRESS Agustina Ochoa MD [address] [facility] [place] [address] [address] Referral ID Status Reason Start Date Expiration Date V isits Requested Visits Authorized [id number] Closed Auto-Generate d Referral 03/27/2022 04/26/2023 1 1 [facility] for referral (narrative)* Outpatient Procedure (Routine) - Pending Review Specialty Diagnoses / Procedures Referred By Jean t Referred To Contact [facility] [place] Diagnoses CTEPH (chronic thromboembolic pulmonary hypertension) (HCC) Procedures ECHO ECHO TTHRC R-T 2D W/WOM-MODE COMPL SPEC&COLR D Agustina Ochoa MD [address] [place] [address] [address] Referral ID Status Reason Start Date Expiration Date Visits Requested Visits Authorized [id number] Pending Review Auto-Generat ed Referral 03/28/2023 1 1 * Outpatient Procedure (Routine) - Pending Review Specialty Diagnoses / Procedures Referred By Kevinac t Referred To [facility] [place] Diagnoses CTEPH (chronic thromboembolic pulmonary hypertension) (HCC) Procedures SIX MINUTE WALK CARDIOPULMONARY EXERCISE STRESS Agustina Ochoa MD [address] [facility] [place] [address] [address] Referral ID Status Reason Start Date Expiration Date Visits Requested Visits Authorized [id number] Pending Review Auto-Generat ed Referral 09/25/2022 04/27/2023 1 1 * Outpatient Procedure (Routine) - Authorized Specialty Diagnoses / Procedures Referred By Contac t Referred To Contact [facility] [place] Diagnoses CTEPH (chronic thromboembolic pulmonary hypertension) (HCC) Procedures US A/V FISTULA GRAFT UNL VAS LAB DUPLEX SCAN HEMODIALYSIS ACCESS Agustina Ochoa MD [address] [place] [address] [address] Referral ID Status Reason Start Date Expiration Date Visits Requested Visits Authorized [id number] Authorized Auto-Generat ed Referral 03/27/2023 1 1 [facility] for referral (narrative)* Outpatient Procedure (Routine) - Authorized Specialty Diagnoses / Procedures Referred By Contac t Referred To Contact [facility] [place] Diagnoses CTEPH (chronic thromboembolic pulmonary hypertension) (HCC) Procedures ECHO ECHO TTHRC R-T 2D W/WOM-MODE COMPL SPEC&COLR D Agustina Ochoa MD [address] [place] [address] [address] Referral ID Status Reason Start Date Expiration Date Visits Requested Visits Authorized [id number] Authorized Auto-Generat ed Referral 09/24/2023 03/25/2024 1 1 * Outpatient Procedure (Routine) - Pending Review Specialty Diagnoses / Procedures Referred By Contac t Referred To [facility] Diagnoses CTEPH (chronic thromboembolic pulmonary hypertension) (HCC) Procedures SIX MINUTE WALK CARDIOPULMONARY EXERCISE STRESS Agustina Ochoa MD [address] [facility] [place] [address] [address] Referral ID Status Reason Start Date Expiration Date Visits Requested Visits Authorized [id number] Pending Review Auto-Generat ed Referral 09/24/2023 04/24/2024 1 1 [facility] for visit Narrative* Outpatient Procedure (Routine) - Closed Specialty Diagnoses / Procedures Referred By Contgordo t Referred To Contact [facility] Diagnoses SOB (shortness of breath) Other chronic pulmonary heart diseases Procedures SIX MINUTE WALK CARDIOPULMONARY EXERCISE STRESS PULMONARY STRESS TESTING Ngoc Thompson, ALFREDITO.[facility] [address] [place] [address] [facility] [place] [address] [place], [place] [id number] Referral ID Status Reason Start Date Expiration Date V isits Requested Visits Authorized [id number] Closed Auto-Generate d Referral 03/19/2022 05/10/2022 1 1 [facility] for visit Narrative* Outpatient Procedure (Routine) - Closed Specialty Diagnoses / Procedures Referred By Jean larson Referred To [facility] Diagnoses SOB (shortness of breath) Procedures ECHO WITH AGITATED SALINE CONTRAST ECHO TRANSTHORAC R-T 2D W/WO M-MODE REC COMP Ngoc Thompson, WASHER AND CAPPER MACHINE OPERATOR.[facility] [address] [place] [address] [id number] [place] [address] Referral ID Status Reason Start Date Expiration Date V isits Requested Visits Authorized [id number] Closed Auto-Generate d Referral 08/01/2021 08/01/2022 1 1 [facility] Summary Purpose Family History No Family History Records FoundNo Family History Records Found Advance Directives No Advanced Directives Records FoundDocuments on File Type Date 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 Advance Directive(s) Advance Directive(s) 06/13/2019 11:48 AM Advance Directive(s) 06/25/2006 12:00 AM Documents on File Type Date 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 Advance 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) Advance Directive(s) 06/25/2006 Documents on File Type Date 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 Discontinue saline lock post exam. If patient has central line or IVAD, may access for administering according to line specific nursing protocol. Once exam is complete, flush line and de-access per line specific nursing protocol. Given 03/27/2022 10:45 AM EST 10 mL Additional Source Comments INFORMATION SOURCE (unrecogn ized section and content) DATE CREATED AUTHOR AUTHOR'S ORGANIZ ATION 06/11/2023 [facility] Source Comments (unrecognize d section and content) In the event this informatio n is protected by the Federal Confidentiality of Alcohol and Drug Abuse Patient Records regulations: The Federal rules restrict any use of the information to criminally investigate or prosecute any alcohol or drug abuse patient.[facility] the event this information is protected by the Federal Confidentiality of Alcohol and Drug Abuse Patient Records regulations: The Federal rules restrict any use of the information to criminally investigate or prosecute any alcohol or drug abuse patient.[facility] the event this information is protected by the Federal Confidentiality of Alcohol and Drug Abuse Patient Records regulations: The Federal rules restrict any use of the information to criminally investigate or prosecute any alcohol or drug abuse patient.[facility] the event this information is protected by the Federal Confidentiality of Alcohol and Drug Abuse Patient Records regulations: The Federal rules restrict any use of the information to criminally investigate or prosecute any alcohol or drug abuse patient.[facility] the event this information is protected by the Federal Confidentiality of Alcohol and Drug Abuse Patient Records regulations: The Federal rules restrict any use of the information to criminally investigate or prosecute any alcohol or drug abuse patient.[facility] the event this information is protected by the Federal Confidentiality of Alcohol and Drug Abuse Patient Records regulations: The Federal rules restrict any use of the information to criminally investigate or prosecute any alcohol or drug abuse patient.[facility] the event this information is protected by the Federal Confidentiality of Alcohol and Drug Abuse Patient Records regulations: The Federal rules restrict any use of the information to criminally investigate or prosecute any alcohol or drug abuse patient.[facility] the event this information is protected by the Federal Confidentiality of Alcohol and Drug Abuse Patient Records regulations: The Federal rules restrict any use of the information to criminally investigate or prosecute any alcohol or drug abuse patient.[facility] the event this information is protected by the Federal Confidentiality of Alcohol and Drug Abuse Patient Records regulations: The Federal rules restrict any use of the information to criminally investigate or prosecute any alcohol or drug abuse patient.[facility] the event this information is protected by the Federal Confidentiality of Alcohol and Drug Abuse Patient Records regulations: The Federal rules restrict any use of the information to criminally investigate or prosecute any alcohol or drug abuse patient.[facility] the event this information is protected by the Federal Confidentiality of Alcohol and Drug Abuse Patient Records regulations: The Federal rules restrict any use of the information to criminally investigate or prosecute any alcohol or drug abuse patient.[facility] the event this information is protected by the Federal Confidentiality of Alcohol and Drug Abuse Patient Records regulations: The Federal rules restrict any use of the information to criminally investigate or prosecute any alcohol or drug abuse patient.[facility] the event this information is protected by the Federal Confidentiality of Alcohol and Drug Abuse Patient Records regulations: The Federal rules restrict any use of the information to criminally investigate or prosecute any alcohol or drug abuse patient.[facility] Hospital[facility] the event this information is protected by the Federal Confidentiality of Alcohol and Drug Abuse Patient Records regulations: The Federal rules restrict any use of the information to criminally investigate or prosecute any alcohol or drug abuse patient.[facility] Hospital[facility] the event this information is protected by the Federal Confidentiality of Alcohol and Drug Abuse Patient Records regulations: The Federal rules restrict any use of the information to criminally investigate or prosecute any alcohol or drug abuse patient.[facility] Hospital[facility] the event this information is protected by the Federal Confidentiality of Alcohol and Drug Abuse Patient Records regulations: The Federal rules restrict any use of the information to criminally investigate or prosecute any alcohol or drug abuse patient.[facility] Hospital[facility] the event this information is protected by the Federal Confidentiality of Alcohol and Drug Abuse Patient Records regulations: The Federal rules restrict any use of the information to criminally investigate or prosecute any alcohol or drug abuse patient.[facility] Hospital[facility] the event this information is protected by the Federal Confidentiality of Alcohol and Drug Abuse Patient Records regulations: The Federal rules restrict any use of the information to criminally investigate or prosecute any alcohol or drug abuse patient.[facility] Hospital[facility] the event this information is protected by the Federal Confidentiality of Alcohol and Drug Abuse Patient Records regulations: The Federal rules restrict any use of the information to criminally investigate or prosecute any alcohol or drug abuse patient.[facility] Care Teams (unrecognized sec tion and content) Manpower Development Advisor Relationship Specialty Start Date End Date Anika Pedraza DO [address] [place] [address] PCP - General 06/22/14 Manpower Development Advisor Relationship Specialty Start Date End Date Anika Pedraza DO [address] [place] [address] PCP - General 06/22/14 Manpower Development Advisor Relationship Specialty Start Date End Date Anika Pedraza DO [address] [place] [address] PCP - General 06/22/14 Manpower Development Advisor Relationship Specialty Start Date End Date Anika Pedraza DO [address] [place] [address] PCP - General 06/22/14 Manpower Development Advisor Relationship Specialty Start Date End Date Anika Pedraza DO [address] [place] [address] PCP - General 06/22/14 Manpower Development Advisor Relationship Specialty Start Date End Date Anika Pedraza DO [address] [place] [address] PCP - General 06/22/14 Manpower Development Advisor Relationship Specialty Start Date End Date Anika Pedraza DO [address] [place] [address] PCP - General 06/22/14 Manpower Development Advisor Relationship Specialty Start Date End Date Anika Pedraza, DO [address] [place] [address] PCP - General 06/22/14 Manpower Development Advisor Relationship Specialty Start Date End Date Anika Pedraza, DO [address] [place] [address] PCP - General 06/22/14 Manpower Development Advisor Relationship Specialty Start Date End Date Anika Pedraza, DO [address] [place] [address] PCP - General 06/22/14 Manpower Development Advisor Relationship Specialty Start Date End Date Anika Pedraza DO [address] [place] [address] PCP - General 06/22/14 Manpower Development Advisor Relationship Specialty Start Date End Date Anika Pedraza DO [address] [place] [address] PCP - General 06/22/14 Manpower Development Advisor Relationship Specialty Start Date End Date Anika Pedraza DO [address] [place] [address] PCP - General 06/22/14 Manpower Development Advisor Relationship Specialty Start Date End Date Anika Pedraza DO [address] [place] [address] PCP - General 06/22/14 Manpower Development Advisor Relationship Specialty Start Date End Date Anika Pedraza DO [address] [place] [address] PCP - General 06/22/14 Reason for Visit (unrecogniz ed section and content) Reason Onset Date Comments Refill Request 03/05/2022 Reason Comments Spirometry Specialty Diagnoses / Procedures Referred By Jean t Referred To Contact [facility] Diagnoses SOB (shortness of breath) Other chronic pulmonary heart diseases Procedures LUNG VOLUMES Ngoc Thompson APRN.[facility] [address] [place] [address] [address] Referral ID Status Reason Start Date Expiration Date V isits Requested Visits Authorized [id number] Closed Auto-Generate d Referral 05/11/2021 05/10/2022 1 1 Specialty Diagnoses / Procedures Referred By Contac t Referred To Contact [facility] [place] Diagnoses SOB (shortness of breath) Other chronic pulmonary heart diseases Procedures LUNG DIFFUSION CAPACITY (DLCO) DIFFUSING CAPACITY Ngoc Thompsno APRN.[facility] [address] [place] [address] [address] Referral ID Status Reason Start Date Expiration Date V isits Requested Visits Authorized [id number] Closed Auto-Generate d Referral 03/27/2021 04/26/2022 1 1 Specialty Diagnoses / Procedures Referred By Contac t Referred To Contact [facility] [place] Diagnoses SOB (shortness of breath) Other chronic pulmonary heart diseases Procedures SPIROMETRY WITH DILATOR IF OBSTRUCTED SPIROMETRY BEFORE/AFTER BRONCHODILATORS Ngoc Thompson APRN.[facility] [address] [place] [address] [address] Referral ID Status Reason Start Date Expiration Date V isits Requested Visits Authorized [id number] Closed Auto-Generate d Referral 03/27/2021 04/26/2022 1 1 Reason Comments Recheck Reason Onset Date Comments Refill Request 04/09/2022 Reason Onset Date Comments Refill Request 05/01/2022 Reason Comments 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 This clinical summary was aggregated from multiple sources. Caution should be exercised in using it in the provision of clinical care. This summary normalizes information from multiple sources, and as a consequence, information in this document may materially change the coding, format and clinical context of patient data. In addition, data may be omitted in some cases. CLINICAL DECISIONS SHOULD BE BASED ON THE PRIMARY CLINICAL RECORDS. [facility]. provides no warranty or guarantee of the accuracy or completeness of information in this document.
== END 2023-07-01 14:29 | disposition home or self-care (01) ==
LOC: MEDOUTP 14:28
PROVIDERS: PCP Family Medicine; Referring Provider Nurse Practitioner; Visit Provider Nurse Practitioner
DX: D50.9 Iron deficiency anemia, unspecified (principal)
CPT/HCPCS: 96365; J1439; J7050; A4216

== ENCOUNTER 2023-07-09 16:22 | Outpatient (RCR) | payer MEDICARE, SELFPAY ==
[2023-06-10 23:35] VITALS: BMI 33.6
[2023-06-13 10:37] LABS: Absolute Lymphocyte Count 0.89 X10^3/uL (0.83-4.51); Absolute Neutrophil Count 4.6 X10^3/uL (2.0-7.7); Basophil# 0.01 X10^3/uL; Basophil% 0.2 % (0-1); Eosinophil# 0.24 X10^3/uL; Eosinophils% 3.8 % (0-5); Hematocrit 39.1 % (37-47); Hemoglobin 9.9 g/dL (12.0-15.0); Lymphocyte # 0.89 X10^3/ul (0.83-4.51); Lymphocyte % 14.1 % (19-41); Mean Corp Hgb Conc 25.3 g/dL (32-36); Mean Corpuscular Volume 63.3 fL (81-99); Monocyte# 0.52 X10^3/uL; Monocyte% 8.3 % (0-10); NRBC Flagged by Analyzer 0.3 % (0-5); Neutrophil # 4.61 X10^3/uL (2.7-7.7); Neutrophil % 73.3 % (47-70); POSITIVE MORPHOLOGY YES; Platelet Count 251 K/mm3 (150-450); RBC Distribution Width CV 21.2 % (11.6-14.6); RBC Distribution Width SD 44.6 fl (35.1-43.9); Red Blood Count 6.18 M/mm3 (4.2-5.4); White Blood Count 6.3 K/mm3 (4.4-11.0)
[2023-06-13 10:38] LABS: International Normalized Ratio 2.1; Prothrombin Time (Protime)PT. 23.7 SECONDS (11.7-14.9)
[2023-06-13 10:53] LABS: Differential Indicated SCAN CRITERIA MET
[2023-06-13 10:55] LABS: Iron 21 ug/dL (50-170); Iron Binding Capacity,Total 476 ug/dL (250-450); PERCENT IRON SATURATION 4.4 % (15.0-55.0)
[2023-06-13 11:19] LABS: Anisocytosis 2+; Ovalocyte 1+
[2023-07-09 17:42] LABS: Absolute Lymphocyte Count 0.94 X10^3/uL (0.83-4.51); Absolute Neutrophil Count 7.7 X10^3/uL (2.0-7.7); Basophil# 0.03 X10^3/uL; Basophil% 0.3 % (0-1); Eosinophil# 0.18 X10^3/uL; Eosinophils% 1.9 % (0-5); Hematocrit 44.4 % (37-47); Hemoglobin 12.1 g/dL (12.0-15.0); Lymphocyte # 0.94 X10^3/ul (0.83-4.51); Lymphocyte % 9.9 % (19-41); Mean Corp Hgb Conc 27.3 g/dL (32-36); Mean Corpuscular Hgb 19.3 pg (27.0-32.0); Mean Corpuscular Volume 70.8 fL (81-99); Monocyte# 0.61 X10^3/uL; Monocyte% 6.5 % (0-10); NRBC Flagged by Analyzer 0 % (0-5); Neutrophil # 7.66 X10^3/uL (2.7-7.7); Neutrophil % 81.1 % (47-70); POSITIVE MORPHOLOGY YES; Platelet Count 217 K/mm3 (150-450); Red Blood Count 6.27 M/mm3 (4.2-5.4); White Blood Count 9.5 K/mm3 (4.4-11.0)
[2023-07-09 17:48] LABS: Differential Indicated SCAN CRITERIA MET
[2023-07-09 17:49] LABS: International Normalized Ratio 2.8; Prothrombin Time (Protime)PT. 28.9 SECONDS (11.7-14.9)
[2023-07-09 19:02] LABS: Acanthocytes RARE; Anisocytosis 1+; Microcytosis 1+; Ovalocyte RARE; Platelet Estimate ADEQUATE (ADEQ); Red Cell Morphology N CHROM NORMAL (NORM C&C); Tear Drop Cell RARE
== END 2023-07-09 18:00 | disposition home or self-care (01) ==
LOC: MTLAB 16:22
PROVIDERS: Family Provider Family Medicine; PCP Family Medicine; Referring Provider Family Medicine; Visit Provider Family Medicine
DX: Z79.01 Long term (current) use of 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 (principal); D50.9 Iron deficiency anemia, unspecified; I27.0 Primary pulmonary hypertension
CPT/HCPCS: 36415; 83540; 83550; 85025; 85610

== ENCOUNTER 2023-07-29 15:44 | Outpatient (RCR) | payer MEDICARE, SELFPAY ==
[2023-07-10 02:13] VITALS: BMI 33.6
[2023-07-29 16:39] LABS: International Normalized Ratio 2.5; Prothrombin Time (Protime)PT. 26.7 SECONDS (11.7-14.9)
== END 2023-08-09 23:59 ==
LOC: BIMLAB 15:44
PROVIDERS: Family Provider Family Medicine; PCP Family Medicine; Referring Provider Family Medicine; Visit Provider Family Medicine
DX: Z79.01 Long term (current) use of 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 (principal)
CPT/HCPCS: 36415; 85610

== ENCOUNTER → 2023-08-25 | Outpatient (CLI) | payer MEDICARE, SELFPAY ==
[2023-08-25 16:41] LABS: International Normalized Ratio 3.2; Prothrombin Time (Protime)PT. 32.2 SECONDS (11.7-14.9)
== END | disposition home or self-care (01) ==
LOC: BIMLAB 15:48
PROVIDERS: PCP Family Medicine; Visit Provider Family Medicine
DX: Z79.01 Long term (current) use of 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 (principal)
CPT/HCPCS: 36415; 85610

== ENCOUNTER 2023-09-07 17:35 | Emergency (ER) | payer MEDICARE, SELFPAY ==
[2023-09-07 17:37] VITALS: BP 147/54; PULSE 67; RESP 18; TEMP 36.8; O2SAT 94
[2023-09-07 17:42] VITALS: BMI 32.7
--- NOTE | 2023-09-07 18:14 | ED.VIS.LOWEX ---
HPI History of Present Illness Chief Complaint: Lower Extremity Injury Detail of Chief Complaint: Atraumatic posterior proximal right thigh pain Informant: patient Occured/Mechanism Comment: Atraumatic. Onset/Context/Timing Onset: Yesterday Timing: Continuous Quality of Pain: Dull and Aching Location: Insertion site of hamstring muscle Current Severity: Mild Maximum Severity: Severe Worsened by: Sitting/palpation Relieved by: Nothing Associated Symptoms Associated Symptoms: Negative for Parasthesia, Weakness or Loss of Funtion Narrative Narrative: Patient is a 68-year-old woman on Coumadin for hypercoagulable state with history of recurrent VTE. She presents with atraumatic posterior right thigh pain. This is worse with walking and especially sitting. She has no steps where she lives. She denies paresthesia, anesthesia or motor weakness of the right or left lower extremity. She has no urologic symptoms. She is concerned she has a DVT. Prior similar symptoms: No Recent Illness/Hospitalization: No PFSH PFSH Medical History Anxiety Atrial fibrillation Claustrophobia COPD (chronic obstructive pulmonary disease) Depression Former smoker Lupus anticoagulant disorder Osteoporosis Panic disorder with agoraphobia Primary pulmonary hypertension (PPH) Pulmonary arterial hypertension Pulmonary embolism TIA (transient ischemic attack) Type 2 diabetes mellitus Urinary tract infection Home Medications ambrisentan 10 mg tablet 10 mg PO DAILY 04/21/16 [History Last Taken Unknown] sildenafil 60 mg PO TID 07/24/21 [History Last Taken 11/17/22] albuterol sulfate 90 mcg/actuation aerosol inhaler 1 puff inhalation Q6H PRN bronchospasm #8.5 grams 08/28/21 [Rx Last Taken Unknown] blood sugar diagnostic #100 ea 10/09/21 [Rx Last Taken Unknown] lancets (OneTouch UltraSoft Lancets) #200 ea 10/09/21 [Rx Last Taken Unknown] tiotropium bromide 1.25 mcg/actuation mist for inhalation (Spiriva Respimat) 2 puff inhalation DAILY #4 grams 12/03/21 [Rx Last Taken Unknown] pravastatin 40 mg tablet 40 mg PO QHS #90 tabs 09/05/22 [Rx Last Taken Unknown] diltiazem HCl 360 mg tablet,extended release 24 hr (Matzim [place]) 360 mg PO DAILY heart #90 tabs 04/30/23 [Rx Last Taken Unknown] Oxygen, Home [Home Oxygen] 6 l NASAL CONT 05/15/23 [History Last Taken 05/15/23] clobetasol 0.05 % topical cream 1 applic topical BID #30 grams 06/02/23 [Rx Last Taken Unknown] furosemide 40 mg tablet 40 mg PO BID #180 tabs 06/02/23 [Rx Last Taken Unknown] tolterodine 2 mg capsule,extended release 24 hr 2 mg PO DAILY #90 caps 06/02/23 [Rx Last Taken Unknown] metformin 500 mg tablet 500 mg PO BID #180 tabs 06/03/23 [Rx Last Taken Unknown] alprazolam 0.5 mg tablet (Xanax) 0.5 mg PO BID PRN anxiety #60 tabs 07/22/23 [Rx Last Taken Unknown] omeprazole 40 mg capsule,delayed release 40 mg PO DAILY #90 caps 07/22/23 [Rx Last Taken Unknown] spironolactone 50 mg tablet 50 mg PO DAILY #90 tabs 07/28/23 [Rx Last Taken Unknown] nystatin 100,000 unit/gram topical cream 1 applic topical BID #30 grams 07/29/23 [Rx Last Taken Unknown] potassium chloride 20 mEq tablet,extended release 20 meq PO TID #270 tabs 08/12/23 [Rx Last Taken Unknown] sertraline 100 mg tablet 100 mg PO DAILY #90 tabs 09/01/23 [Rx Last Taken Unknown] olanzapine 5 mg tablet 5 mg PO DAILY #90 tabs 09/07/23 [Rx Last Taken Unknown] warfarin 3 mg tablet 3 mg PO DAILY #90 tabs 09/07/23 [Rx Last Taken Unknown] Allergy/AdvReac Type Severity Reaction Status Date / Time nitroglycerin AdvReac Other Verified 09/07/23 17:37 Family History Mother COPD (chronic obstructive pulmonary disease) Cancer melanoma Father Heart disease Alcoholism Grandmother Cancer Grandfather Parkinsons disease Surgical History H/O colonoscopy H/O endoscopy history of bunion surgery History of cholecystectomy History of embolic filter insertion History of placement of ear tubes History of tonsillectomy Social History Smoking Status: Former smoker Tobacco: How many years used: 8 how long ago did patient quit smokin years alcohol intake: never substance use type: does not use what type of physical activity do you participate in: none ROS ROS ED Constitutional Constitutional ED: Denies chills, fever(s), subjective, sweats or weight loss Musculoskeletal Musculoskeletal: Denies arthralgias or myalgias Integumentary Denies rash Neurologic Neurologic: Denies paresthesias or weakness Hematologic/Lymphatic Hematologic/Lymphatic: Denies easy bleeding or easy bruising EXAM Physical Exam Const Vital Signs: 09/07/23 17:37 Temperature 98.3 F Temperature Source Temporal Pulse Rate 67 Respiratory Rate 18 Blood Pressure 147/54 H Blood Pressure Mean 85 Pulse Ox 94 Oxygen Delivery Method Nasal Cannula Oxygen Flow Rate (L/min) 4 Positive well nourished, well developed and obese Constitutional Narrative: Patient is on chronic oxygen at 4 L and needs wheelchair to navigate. General Appearance ED: well developed and NAD Nutritional Appearance: obese HEENT Reports moist mucous membranes normocephalic and atraumatic Eyes PERRL Neck full ROM and supple Resp normal respiratory effort Cardio regular rate and regular rhythm Extremity normal to inspection and full ROM Extremity Narrative: There is pain outpatient insertion of the hamstring muscle. There is no evidence of bruising or discoloration. There is no asymmetry of the lower extremities. There is no leg vein distention, palpable cords tenderness on the distribution deep venous system. Patient has a palpable DP pulse. Neuro oriented x3, CN's II-XII intact bilaterally and moves all extremities Sensorium / Orientation: alert Psych mental status grossly normal Skin no wounds Lesions: no lesions Rashes: no rashes MDM MDM MDM Narrative Medical decision making narrative: Patient was told this is a muscular pain. Will obtain PT/INR to evaluate for overcooked coagulation and possible spontaneous hematoma or bleeding into muscle injury. Lab Data Lab results narrative: INR is elevated 5.0. Patient was instructed to hold her dose tomorrow. Take half a tablet on Thursday and . She will have PT/INR assessed on Thursday. If she is unable to get a hold of Dr. Pedraza she is to take half a pill since she has a history of hypercoagulable state with recurrent VTE. Labs: Laboratory Results - last 24 hr 09/07/23 18:05 PT 46.0 H INR 5.0 H* Treatment and Re-Evaluation Narrative: Document under the laboratory portion of the chart Discharge Plan Triage Chief Complaint: Lower Extremity Injury ED Provider: Jethro Humphrey Dx/Rx/DC Orders Clinical Impression: Right hamstring muscle strain, Lupus anticoagulant disorder, Type 2 diabetes mellitus, Prothrombin time increased due to coumadin, History of venous thromboembolism, Paroxysmal A-fib Instructions: ED Muscle Strain, Extremity Prescriptions: No Action albuterol sulfate 90 mcg/actuation HFA aerosol inhaler 1 puff INHALATION Q6H PRN (Reason: bronchospasm) Qty: 8.5 3RF sertraline 100 mg tablet 100 mg PO DAILY Qty: 90 1RF diltiazem HCl [Matzim LA] 360 mg tablet extended release 24 hr 360 mg PO DAILY Qty: 90 2RF clobetasol 0.05 % cream 1 applic topical BID Qty: 30 1RF furosemide 40 mg tablet 40 mg PO BID Qty: 180 2RF tolterodine 2 mg capsule,extended release 24hr 2 mg PO DAILY Qty: 90 3RF nystatin 100,000 unit/gram cream 1 applic topical BID Qty: 30 2RF ambrisentan 10 MG tablet 10 mg PO DAILY sildenafil 20 mg tablet 60 mg PO TID Oxygen, Home [Home Oxygen] 6 l NASAL CONT Rx Instructions: OF NOTE, PATIENT PRIOR OXYGEN SET-UP WITH 6L REST AND 6.5L ACTIVITY. During admission patient transitioned (DME) blood sugar diagnostic Strip See Rx Instructions .ROUTE .MEDSUPPLY Qty: 100 3RF Dose Instruction: As directed Rx Instructions: check blood sugar three times a day (DME) lancets [OneTouch UltraSoft Lancets] [facility] See Rx Instructions .ROUTE .MEDSUPPLY Qty: 200 2RF Dose Instruction: As directed Rx Instructions: daily- check blood sugar three times a day Spiriva Respimat 1.25 mcg/actuation mist 2 puff inhalation DAILY Qty: 4 0RF pravastatin 40 mg tablet 40 mg PO QHS Qty: 90 3RF metformin 500 mg tablet 500 mg PO BID Qty: 180 0RF omeprazole 40 mg capsule,delayed release(DR/EC) 40 mg PO DAILY Qty: 90 3RF alprazolam [Xanax] 0.5 mg tablet 0.5 mg PO BID PRN (Reason: anxiety) Qty: 60 0RF spironolactone 50 mg tablet 50 mg PO DAILY Qty: 90 1RF potassium chloride 20 mEq tablet extended release 20 meq PO TID Qty: 270 0RF warfarin 3 mg tablet 3 mg PO DAILY Qty: 90 1RF Protocol: Dose Management Condition: Thursday Dose/Route: 3 mg Instruction: 1 x 3 mg tablet Condition: Thursday Dose/Route: 3 mg Instruction: 1 x 3 mg tablet Condition: Thursday Dose/Route: 3 mg Instruction: 1 x 3 mg tablet Condition: Thursday Dose/Route: 3 mg Instruction: 1 x 3 mg tablet Condition: Dose/Route: 3 mg Instruction: 1 x 3 mg tablet Condition: Thursday Dose/Route: 3 mg Instruction: 1 x 3 mg tablet Condition: Thursday Dose/Route: 3 mg Instruction: 1 x 3 mg tablet Protocol Text: Adjustment Start Date: 05/22/22 INR Value: 4.3 INR Date: 05/21/22 Recheck Date: 05/28/22 Rx Instructions: 05/22/22 3 mg daily olanzapine 5 mg tablet 5 mg PO DAILY Qty: 90 1RF Primary Care Provider: Jose Miguel Pedraza Referrals: Jose Miguel Pedraza, [Primary Care Provider] - 3-5 Days Activity Restrictions/Additional Instructions: 1. Do not take your Coumadin dose tomorrow, Thursday, September 07 2. Take half a tablet of Coumadin on Thursday and 3. You will need to go to the lab for PT/INR level, to assess your Coumadin level 4. If you are unable to speak with Dr. Pedraza after you obtain your PT/INR take half a tablet of the your Coumadin dose. Disposition Disposition: Home, Self Care
[2023-09-07 18:47] VITALS: BP 143/55; PULSE 69; RESP 16; TEMP 36.9; O2SAT 94
== END 2023-09-07 18:48 | disposition home or self-care (01) ==
PROVIDERS: Emergency Provider Emergency Medicine; PCP Family Medicine; Visit Provider Emergency Medicine
DX: S76.311A Strain of muscle, fascia and tendon of the posterior muscle group at thigh level, right thigh, initial encounter (principal); I27.21 Secondary pulmonary arterial hypertension; J44.9 Chronic obstructive pulmonary disease, unspecified; I48.0 Paroxysmal atrial fibrillation; E11.9 Type 2 diabetes mellitus without complications; Z87.891 Personal history of nicotine dependence; D68.62 Lupus anticoagulant syndrome; Z79.01 Long term (current) use of 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; Z86.73 Personal history of transient ischemic attack (TIA), and cerebral infarction without residual deficits; Z86.711 Personal history of pulmonary embolism; Z79.899 Other long term (current) drug therapy; F41.9 Anxiety disorder, unspecified; F32.A Depression, unspecified; Z90.49 Acquired absence of other specified parts of digestive tract
CPT/HCPCS: 85610; 99282

== ENCOUNTER 2023-09-10 18:53 | Observation (INO) | payer MEDICARE, SELFPAY ==
[2023-09-10 18:58] VITALS: BP 159/54; PULSE 84; RESP 14; TEMP 36.6; O2SAT 96; BMI 14.8
--- NOTE | 2023-09-10 19:16 | EKG12_ITS ---
Test Reason : DYSRHYTHMIA Blood Pressure : / mmHG Vent. Rate : 083 BPM Atrial Rate : 083 BPM P-R Int : 214 ms QRS Dur : 088 ms QT Int : 384 ms P-R-T Axes : 031 -29 057 degrees QTc Int : 451 ms Sinus rhythm with 1st degree A-V block Moderate voltage criteria for LVH, may be normal variant ( R in aVL , [place] product ) Inferior infarct (cited on or before 20-AUG-2020) Abnormal ECG Confirmed by JUAN WALLACE, BRYAN ([id number]), editor greeting card MARIA GUADALUPE HERNANDEZ ([id number]) on 09/11/2023 10:29:22 AM Referred By: Confirmed By:BRYAN MARTINEZ MD
--- NOTE | 2023-09-10 19:25 | RAD_ITS ---
INDICATION: dizziness EXAMINATION/TECHNIQUE: X-RAY - XR Chest 1 View COMPARISON: No relevant prior comparison study available FINDINGS: LINES/DEVICES: None. LUNGS: Patchy airspace opacities in the left lung base suggesting pneumonia. MEDIASTINUM AND CARDIOVASCULAR STRUCTURES: Cardiac silhouette not enlarged. Central airways and mediastinal contour are unremarkable. BONES AND SOFT TISSUES: Unremarkable. RAD/Chest 1 View (Portable) IMPRESSION: Left lower lobe pneumonia. Electronically Signed: Vinny Kay MD at 20:09 EDT ,
[2023-09-10] MEDS: 0.9% Normal Saline (1000mL) 1,000 ML 1000 ML IV (19:26)
--- NOTE | 2023-09-10 19:31 | EX.ED.DYSGE1 ---
HPI History of Present Illness Chief Complaint: Nausea/Vomiting Informant: patient and family Narrative Narrative: This is a 68-year-old female who presents to the emergency department for nausea, vomiting and dizziness. Patient reports that she began having nausea and vomiting 2 days ago. She had a better day yesterday, but again began having vomiting today. She describes the emesis as dark brown in nature. No bright red blood. The patient is not having any abdominal pain or tenderness, but states that she has not had a bowel movement in a week. The patient states she has difficulty standing and ambulating to the bathroom as she has some chronic dizziness that has been unchanged. She sometimes has some urinary incontinence due to this but is not complaining of any urinary frequency, dysuria, hematuria or flank pain. Patient has no prior history of bowel obstructions in the past and her only prior abdominal surgery is a cholecystectomy. She has not had any fevers or chills. She has had decreased oral intake. No infectious respiratory symptoms. No headache. No chest pain or shortness of breath. No unilateral focal numbness, weakness or paresthesias. No sick contacts. Patient was seen in the ED 3 days ago for pain in the right thigh. She was here to rule out DVT and was actually found to have a supratherapeutic INR of 5. She modified her Coumadin dosing, but has not had a repeat INR check yet. The patient is anticoagulated for a history of lupus anticoagulant disorder and PE. [facility] Medical History Anxiety Atrial fibrillation Claustrophobia COPD (chronic obstructive pulmonary disease) Depression Former smoker Lupus anticoagulant disorder Osteoporosis Panic disorder with agoraphobia Primary pulmonary hypertension (PPH) Pulmonary arterial hypertension Pulmonary embolism TIA (transient ischemic attack) Type 2 diabetes mellitus Urinary tract infection Home Medications ambrisentan 10 mg tablet 10 mg PO DAILY 04/21/16 [History Last Taken Unknown] sildenafil 60 mg PO TID 07/24/21 [History Last Taken 11/17/22] albuterol sulfate 90 mcg/actuation aerosol inhaler 1 puff inhalation Q6H PRN bronchospasm #8.5 grams 08/28/21 [Rx Last Taken Unknown] blood sugar diagnostic #100 ea 10/09/21 [Rx Last Taken Unknown] lancets (OneTouch UltraSoft Lancets) #200 ea 10/09/21 [Rx Last Taken Unknown] tiotropium bromide 1.25 mcg/actuation mist for inhalation (Spiriva Respimat) 2 puff inhalation DAILY #4 grams 12/03/21 [Rx Last Taken Unknown] pravastatin 40 mg tablet 40 mg PO QHS #90 tabs 09/05/22 [Rx Last Taken Unknown] diltiazem HCl 360 mg tablet,extended release 24 hr (Matzim LA) 360 mg PO DAILY heart #90 tabs 04/30/23 [Rx Last Taken Unknown] Oxygen, Home [Home Oxygen] 6 l NASAL CONT 05/15/23 [History Last Taken 05/15/23] clobetasol 0.05 % topical cream 1 applic topical BID #30 grams 06/02/23 [Rx Last Taken Unknown] furosemide 40 mg tablet 40 mg PO BID #180 tabs 06/02/23 [Rx Last Taken Unknown] tolterodine 2 mg capsule,extended release 24 hr 2 mg PO DAILY #90 caps 06/02/23 [Rx Last Taken Unknown] metformin 500 mg tablet 500 mg PO BID #180 tabs 06/03/23 [Rx Last Taken Unknown] alprazolam 0.5 mg tablet (Xanax) 0.5 mg PO BID PRN anxiety #60 tabs 07/22/23 [Rx Last Taken Unknown] omeprazole 40 mg capsule,delayed release 40 mg PO DAILY #90 caps 07/22/23 [Rx Last Taken Unknown] spironolactone 50 mg tablet 50 mg PO DAILY #90 tabs 07/28/23 [Rx Last Taken Unknown] nystatin 100,000 unit/gram topical cream 1 applic topical BID #30 grams 07/29/23 [Rx Last Taken Unknown] potassium chloride 20 mEq tablet,extended release 20 meq PO TID #270 tabs 08/12/23 [Rx Last Taken Unknown] sertraline 100 mg tablet 100 mg PO DAILY #90 tabs 09/01/23 [Rx Last Taken Unknown] warfarin 3 mg tablet 3 mg PO DAILY #90 tabs 09/07/23 [Rx Last Taken Unknown] olanzapine 5 mg tablet 5 mg PO DAILY #90 tabs 09/08/23 [Rx Last Taken Unknown] Allergy/AdvReac Type Severity Reaction Status Date / Time doxycycline AdvReac Intermediate Other Verified 09/10/23 19:09 prednisone AdvReac Intermediate Other Verified 09/10/23 19:09 nitroglycerin AdvReac Other Verified 09/07/23 17:37 Family History Mother COPD (chronic obstructive pulmonary disease) Cancer melanoma Father Heart disease Alcoholism Grandmother Cancer Grandfather Parkinsons disease Surgical History H/O colonoscopy H/O endoscopy history of bunion surgery History of cholecystectomy History of embolic filter insertion History of placement of ear tubes History of tonsillectomy Social History Smoking Status: Former smoker Tobacco: How many years used: 8 how long ago did patient quit smokin years alcohol intake: never substance use type: does not use what type of physical activity do you participate in: none ROS ROS ED Constitutional Constitutional ED: Reports sweats; Denies chills or fever(s) Eyes Eyes: Reports blurry vision ENT ENT ED: Denies ear pain, rhinorrhea or sore throat Cardiovascular Cardiovascular: Denies chest pain or palpitations Respiratory/Chest Respiratory/Chest: Denies cough or dyspnea Gastrointestinal Gastrointestinal: Reports constipation, nausea and vomiting; Denies abdominal pain, diarrhea or melena Genitourinary Genitourinary ED: Denies dysuria or urinary frequency Musculoskeletal Musculoskeletal: Denies myalgias or neck pain Neurologic Neurologic: Denies headache(s) Hematologic/Lymphatic Hematologic/Lymphatic: Reports none EXAM Physical Exam Const Vital Signs: 09/10/23 18:58 Temperature 98 F Temperature Source Tympanic Pulse Rate 84 Respiratory Rate 14 Blood Pressure 159/54 H Blood Pressure Mean 89 Pulse Ox 96 Oxygen Delivery Method Room Air Positive well nourished and well developed General Appearance ED: well developed HEENT Reports dry mucous membranes; Denies moist mucous membranes Mouth ED: Yes dry mucous membranes Mouth: dry mucous membranes Eyes PERRL and EOMs intact bilaterally Neck no lymphadenopathy and supple Chest Wall inspection of chest normal Resp normal respiratory effort Cardio regular rate and regular rhythm GI normal to inspection, nondistended, normoactive bowel sounds, non-tender and non-distended Inspection: Negative for abdominal distention Skin Skin Narrative: 2 second capillary refill MDM MDM MDM Narrative Medical decision making narrative: Patient presents to the emergency department with nausea, vomiting and dizziness. Differential diagnosis includes, but is not limited to bowel obstruction/ileus, gastroenteritis, GERD, dehydration, UTI, and less likely cardiac etiology with no chest pain or shortness of breath. Patient already received Zofran per EMS and vomiting subsided. Patient clinically does appear very dehydrated with dry mucous membranes and 2-second capillary refill. Patient hydrated with 1 L fluids in the emergency department. Lab work, EKG, chest x-ray and CT of the abdomen and pelvis are pending. Patient does appear to be dehydrated with hemoconcentration of her CBC. She is noted to have leukocytosis with a white count of 18. She was hydrated with 1 L of fluid. Initial chest x-ray was read as a left lower lobe infiltrate. After speaking with the family, she was treated for lower respiratory tract infection with antibiotics and steroids a couple weeks ago. She has been on her baseline 4 L of oxygen for her pulmonary hypertension/COPD and has not had to increase this and has not had any new productive cough. I did initially cover the patient for community-acquired pneumonia with azithromycin and Rocephin to also cover for any potential urinary source. However, urinalysis resulted and is not overly indicative of UTI at this point. With the patient's persistent nausea and vomiting requiring repeat antiemetics in the ED, we did get a CT of the abdomen and pelvis. This shows evidence of a sigmoid diverticulitis with no evidence of any basilar pneumonia. I will add Flagyl on for coverage of the sigmoid diverticulitis. Using shared decision making model with the patient and her family, they are not comfortable with the patient going to home tonight due to continued nausea, dizziness, and ambulatory dysfunction with the concern for inability to tolerate fluids and antibiotics at home and risk for fall. For that reason, we will admit and observe the patient overnight for continued management. I spoke with hospitalist Dr. Ferrara wait for admission. Lab Data Labs: Laboratory Results - last 24 hr 09/10/23 09/10/23 09/10/23 18:40 19:21 20:41 WBC 18.0 H RBC 6.30 H Hgb 15.2 H Hct 48.2 H MCV 76.5 L MCH 24.1 L MCHC 31.5 L RDW Std Deviation 55.5 H RDW Coeff of Brittany 20.2 H Plt Count 206 MPV 10.0 Immature Gran % (Auto) 0.700 Neut % (Auto) 83.3 H Lymph % (Auto) 7.8 L [place] % (Auto) 7.3 Eos % (Auto) 0.7 Baso % (Auto) 0.2 Absolute Neuts (auto) 15.0 H Absolute Lymphs (auto) 1.41 Nucleated RBC % 0 Differential Comment SCANNED Anisocytosis 2+ Microcytosis 2+ PT 26.7 H INR 2.5 Sodium 131 L Potassium 3.6 Chloride 96 L Carbon Dioxide 23.0 Anion Gap 12 BUN 14 Creatinine 0.77 Estim Creat Clear Calc 40.99 Est GFR (MDRD) Af Amer 96 Est GFR (MDRD) Non-Af 79 BUN/Creatinine Ratio 18.2 Glucose 233 H Lactic Acid 1.4 Calcium 9.3 Total Bilirubin 0.90 AST 20 ALT 29 Alkaline Phosphatase 98 Troponin I High Sens 7 Total Protein 6.5 Albumin 3.4 Globulin 3.1 Albumin/Globulin Ratio 1.1 Urine Color Yellow Urine Clarity Clear Urine pH 6.0 Ur Specific [place] 1.015 Urine Protein 15 H Urine Glucose (UA) 50 H Urine Ketones 15 H Urine Occult Blood 10 H Urine Nitrite Negative Urine Bilirubin Negative Urine Urobilinogen 1 H Ur Leukocyte Esterase 25 H Urine RBC 0 SEEN Urine WBC 0-5 SEEN Ur Squamous Epith Cells 0-5 SEEN Urine Bacteria 0 SEEN Hyaline Casts 0-5 SEEN Urine Mucus RARE Radiography Chest X-Ray - ED: 1 View Diagnostic Testing: Clinical Impression(s) from Imaging Studies Chest X-Ray 09/10/23 19:25 IMPRESSION: Left lower lobe pneumonia. Electronically Signed: Vinny Kay MD at 20:09 EDT Reading Location ID and State: [facility][note 3]5 / [place] Tel , Service support , Abdomen/Pelvis CT 09/10/23 20:17 IMPRESSION: Sigmoid diverticulitis. Electronically Signed: Vinny Kay MD at 21:08 EDT , Management Discussion w/another healthcare provider: Hospitalist (Dr. Alem Le) Discharge Plan Dx/Rx/DC Orders Clinical Impression: Sigmoid diverticulitis, Pulmonary arterial hypertension, Acute dehydration, Leukocytosis, Nausea & vomiting, Constipation, Ambulatory dysfunction, Diabetes mellitus with hyperglycemia, COPD (chronic obstructive pulmonary disease) Disposition Disposition: Acute Care Hospital [facility]
[2023-09-10 19:44] LABS: Absolute Lymphocyte Count 1.41 X10^3/uL (0.83-4.51); Basophil# 0.03 X10^3/uL; Basophil% 0.2 % (0-1); Eosinophil# 0.13 X10^3/uL; Eosinophils% 0.7 % (0-5); Hematocrit 48.2 % (37-47); Hemoglobin 15.2 g/dL (12.0-15.0); Lymphocyte # 1.41 X10^3/ul (0.83-4.51); Lymphocyte % 7.8 % (19-41); Mean Corp Hgb Conc 31.5 g/dL (32-36); Mean Corpuscular Hgb 24.1 pg (27.0-32.0); Mean Corpuscular Volume 76.5 fL (81-99); Monocyte# 1.32 X10^3/uL; Monocyte% 7.3 % (0-10); NRBC Flagged by Analyzer 0 % (0-5); Neutrophil # 14.96 X10^3/uL (2.7-7.7); Neutrophil % 83.3 % (47-70); POSITIVE MORPHOLOGY YES; Platelet Count 206 K/mm3 (150-450); RBC Distribution Width CV 20.2 % (11.6-14.6); RBC Distribution Width SD 55.5 fl (35.1-43.9)
[2023-09-10 19:49] LABS: International Normalized Ratio 2.5; Prothrombin Time (Protime)PT. 26.7 SECONDS (11.7-14.9)
[2023-09-10] MEDS: Ondansetron 4 MG/2 ML Vial IV (19:55)
[2023-09-10 20:03] LABS: ALB/GLOB Ratio 1.1 RATIO (0.9-2.4); AST(SGOT) 20 U/L (15-37); Alanine Aminotransfer ALT/SGPT 29 U/L (13-56); Albumin, Serum 3.4 g/dL (3.2-5.0); Alkaline Phosphatase 98 U/L (45-117); Anion Gap 12 (5-15); BUN 14 mg/dL (7-18); BUN/Creat Ratio 18.2 RATIO (10-20); Calcium,Total 9.3 mg/dL (8.5-10.1); Chloride 96 mmol/L (98-107); Creatinine, Serum 0.77 mg/dL (0.55-1.02); EST Glomerular Filtration Rate 79 mL/min (>60); Est Glom Filt Rate - Afr Amer 96 mL/min (>60); Estimated Creatinine Clearance 40.99 ml/min; Globulin 3.1 g/dL (2.2-4.2); Glucose 233 mg/dL (74-106); Potassium 3.6 mmol/L (3.5-5.1); Protein, Total 6.5 g/dL (6.4-8.2); Sodium Level 131 mmol/L (136-145); Troponin-I HS 7 pg/mL (3.0-54.0)
[2023-09-10 20:03] LABS: Lactic Acid 1.4 mmol/L (0.4-1.9)
--- NOTE | 2023-09-10 20:17 | CT_ITS ---
STUDY: CT ABDOMEN AND PELVIS WITH CONTRAST - URINARY TRACT REASON FOR EXAM: Female, 68 years old. constipation, vomiting, rule out bowel obstruction RADIATION DOSAGE (If Supplied By Facility): CTDIvol = ( 17.02 ) mGy, DLP = ( 1197.34 ) mGycm TECHNIQUE: 100ML ISOVUE 300 was administered. Transaxial images were obtained from the dome of the diaphragm to the symphysis pubis in the arterial, nephrographic and excretory phases. Multiplanar coronal and sagittal images were reformatted. Individualized Dose Optimization Techniques Were Used For This CT. COMPARISON: No relevant prior comparison study available FINDINGS: The visualized lung bases are unremarkable. The visualized portions of the heart are within normal limits. Normal liver. There is non-visualization of the gallbladder, which may be secondary to either contraction or a prior cholecystectomy. Normal spleen. Normal pancreas. Normal bilateral adrenal glands. Normal visualized stomach. Normal small intestine. There is diverticulosis, with thickening of the sigmoid colon colon wall, and pericolonic inflammation changes consistent with acute diverticulitis. The appendix is visualized and appears normal. Normal abdominal aorta. No retroperitoneal adenopathy. IVC filter is seen in good position. Normal right kidney. There is mild left hydronephrosis may be due to vesicoureteral reflux. Normal urinary bladder. Normal abdominal wall. Normal osseous structures. CT/Abdomen/Pelvis W IV Cont ONLY IMPRESSION: Sigmoid diverticulitis. Electronically Signed: Vinny Kay MD at 21:08 EDT ,
[2023-09-10 20:19] LABS: Differential Indicated SCAN CRITERIA MET
[2023-09-10 20:46] LABS: Anisocytosis 2+; Differential Comment SCANNED; Microcytosis 2+
[2023-09-10] MEDS: Ceftriaxone 2 GM in 0.9% Normal Saline (50mL MB+) 50 ML IV (20:50)
[2023-09-10 20:53] LABS: Bacteria 0 SEEN /hpf (None Seen); Red Blood Cells-Urine 0 SEEN /hpf (0-5)
[2023-09-10 20:57] VITALS: BP 150/65; PULSE 54; RESP 16; O2SAT 95
[2023-09-10 20:57] LABS: Color, Urine Yellow (Yellow); Glucose, Dipstick 50 mg/dl (Normal); Ketone-Dipstick 15 mg/dl (Negative); Leukocyte Esterase-Dipstick 25 /ul (Negative); Nitrite-Dipstick Negative (Negative); Occult Blood-Urine 10 /ul (Negative); Protein-Dipstick 15 mg/dl (Negative); Specific Gravity, Urine 1.015 (1.002-1.030); Urine Bilirubin Dipstick Negative (Negative); Urine Clarity Clear (Clear); Urine Urobilinogen 1 mg/dl (Normal)
[2023-09-10 21:04] LABS: Hyaline Cast 0-5 SEEN /lpf (0-5); Mucous, Urine RARE /hpf (<or=2+); Squamous Epithelial Cells - UA 0-5 SEEN /hpf (5-10); White Blood Cells 0-5 SEEN /hpf (0-5)
--- NOTE | 2023-09-10 21:34 | PCM.HP.STD ---
HPI - General General Date of Admission: 09/10/23 Date of Service: 09/10/23 Chief Complaint: N/V, Lightheadedness, acute on chronic dizziness, poor intake. 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 From review of records patient had recent 09/07/23 ED evaluation secondary to atraumatic posterior proximal right thigh discomfort on Coumadin for hypercoagulable state with history of recurrent VTE with INR at that time 5.0 with adjustments recommended and discharged to home with diagnosis of right hamstring muscle strain. She denies any current cough, dyspnea, congestion type symptoms. Several weeks prior she was treated with a course of steroids and possibly abx therapy for COPD exacerbation but this has improved. Patient denies abdominal discomfort although on exam she has some mild discomfort to bilateral lower quadrant palpation. Workup in the ED included T98, heart rate 84, BP 159/54, respiratory rate 14, 96% on room air, CBC with WBC 18, hemoglobin 15.2, MCV 76.5, platelet 206 with left shift, coags with PT 26.7, INR 2.5, CMP with sodium 131, chloride 96, glucose 233, lactic acid 1.4, hepatic profile unremarkable, troponin 7, urinalysis with specific gravity 1.015, protein 15, glucose 50, ketone 15, occult blood 10, negative nitrite, leukocyte Estrace 25 with no obvious evidence of UTI, chest x-ray with evidence of left lower lobe pneumonia however CT abdomen and pelvis with visualized lung bases noted to be unremarkable with no obvious evidence of pulmonary infiltrate, CT abdomen and pelvis with sigmoid diverticulitis evident. In the ED patient ministered 1 L normal saline, Zofran 4 mg IV x 1, IV Rocephin as well as IV Flagyl in addition to azithromycin 500 mg IV x 1. [facility] Medical History Anxiety Atrial fibrillation Claustrophobia COPD (chronic obstructive pulmonary disease) Depression Former smoker Lupus anticoagulant disorder Osteoporosis Panic disorder with agoraphobia Primary pulmonary hypertension (PPH) Pulmonary arterial hypertension Pulmonary embolism TIA (transient ischemic attack) Type 2 diabetes mellitus Urinary tract infection Home Medications ambrisentan 10 mg tablet 10 mg PO DAILY 04/21/16 [History Last Taken Unknown] sildenafil 60 mg PO TID 07/24/21 [History Last Taken 11/17/22] albuterol sulfate 90 mcg/actuation aerosol inhaler 1 puff inhalation Q6H PRN bronchospasm #8.5 grams 08/28/21 [Rx Last Taken Unknown] blood sugar diagnostic #100 ea 10/09/21 [Rx Last Taken Unknown] lancets (OneTouch UltraSoft Lancets) #200 ea 10/09/21 [Rx Last Taken Unknown] tiotropium bromide 1.25 mcg/actuation mist for inhalation (Spiriva Respimat) 2 puff inhalation DAILY #4 grams 12/03/21 [Rx Last Taken Unknown] pravastatin 40 mg tablet 40 mg PO QHS #90 tabs 09/05/22 [Rx Last Taken Unknown] diltiazem HCl 360 mg tablet,extended release 24 hr (Matzim [place]) 360 mg PO DAILY heart #90 tabs 04/30/23 [Rx Last Taken Unknown] Oxygen, Home [Home Oxygen] 6 l NASAL CONT 05/15/23 [History Last Taken 05/15/23] furosemide 40 mg tablet 40 mg PO BID #180 tabs 06/02/23 [Rx Last Taken Unknown] tolterodine 2 mg capsule,extended release 24 hr 2 mg PO DAILY #90 caps 06/02/23 [Rx Last Taken Unknown] alprazolam 0.5 mg tablet (Xanax) 0.5 mg PO BID PRN anxiety #60 tabs 07/22/23 [Rx Last Taken Unknown] omeprazole 40 mg capsule,delayed release 40 mg PO DAILY #90 caps 07/22/23 [Rx Last Taken Unknown] spironolactone 50 mg tablet 50 mg PO DAILY #90 tabs 07/28/23 [Rx Last Taken Unknown] nystatin 100,000 unit/gram topical cream 1 applic topical BID #30 grams 07/29/23 [Rx Last Taken Unknown] potassium chloride 20 mEq tablet,extended release 20 meq PO TID #270 tabs 08/12/23 [Rx Last Taken Unknown] sertraline 100 mg tablet 100 mg PO DAILY #90 tabs 09/01/23 [Rx Last Taken Unknown] olanzapine 5 mg tablet 5 mg PO DAILY #90 tabs 09/08/23 [Rx Last Taken Unknown] budesonide-formoterol HFA 160 mcg-4.5 mcg/actuation aerosol inhaler 2 puff inhalation BID 09/10/23 [History Last Taken Unknown] metformin 500 mg tablet 1,000 mg PO QHS 09/10/23 [History Last Taken Unknown] warfarin 3 mg tablet 1.5 mg PO DAILY 09/10/23 [History Last Taken Unknown] Allergy/AdvReac Type Severity Reaction Status Date / Time doxycycline AdvReac Intermediate Other Verified 09/10/23 19:09 prednisone AdvReac Intermediate Other Verified 09/10/23 19:09 nitroglycerin AdvReac Other Verified 09/07/23 17:37 Family History Mother COPD (chronic obstructive pulmonary disease) Cancer melanoma Father Heart disease Alcoholism Grandmother Cancer Grandfather Parkinsons disease Surgical History H/O colonoscopy H/O endoscopy history of bunion surgery History of cholecystectomy History of embolic filter insertion History of placement of ear tubes History of tonsillectomy Social History (Updated 09/10/23 @ 21:[address] Alem Le MD) household members: none Smoking Status: Former smoker Tobacco: How many years used: 8 how long ago did patient quit smokin years alcohol intake: never substance use type: does not use what type of physical activity do you participate in: none ROS ROS Narrative Admission Review of Systems: CONSTITUTIONAL: No weight loss, fever, chills, + weakness or fatigue. HEENT: + Lightheadedness, acute on chronic dizziness. Eyes: No visual loss, blurred vision, double vision or yellow sclerae. Ears, Nose, Throat: No hearing loss, sneezing, congestion, runny nose or sore throat. SKIN: No rash or itching, lesions, wounds, + various ecchymoses, staged. CARDIOVASCULAR: No chest pain, chest pressure or chest discomfort, palpitations, edema, orthopnea, syncopal events. RESPIRATORY: No shortness of breath, cough or sputum, wheezing, hemoptysis. GASTROINTESTINAL: + anorexia, nausea, vomiting, recent possible constipation. No diarrhea, abdominal pain, melena, BRBPR. GENITOURINARY: No dysuria, frequency, urgency or retention. NEUROLOGICAL: + Lightheadedness, dizziness acute on chronic. No headache, syncope, paralysis, ataxia, numbness or tingling in the extremities, focal weakness, change in bowel or bladder control, seizure. MUSCULOSKELETAL: + muscle, back pain, joint pain or stiffness. HEMATOLOGIC: + Chronic anemia, easy bleeding/bruising. LYMPHATICS: No enlarged nodes. No history of splenectomy. PSYCHIATRIC: + Anxiety and Depression/Panic disorder/Claustrophobia. ENDOCRINOLOGIC: No reports of sweating, cold or heat intolerance. No polyuria or polydipsia. ALLERGIES: No history of asthma, hives, eczema or rhinitis. Vital Signs Vital Signs Vital Signs: 09/10/23 18:58 Temperature 98 F Temperature Source Tympanic Pulse Rate 84 Respiratory Rate 14 Blood Pressure 159/54 H Blood Pressure Mean 89 Pulse Ox 96 Oxygen Delivery Method Room Air Weight Weight: 86 lb 4 oz Body Mass Index (BMI) 14.8 Physical Exam Narrative Physical Examination: General: Awake, alert, oriented x 3 and cooperative, seated upright in the ED bed, no acute distress, no complaints. Skin: Normal color, normal turgor, no icterus, no cyanosis except various staged ecchymoses to the extremities, larger one noted on the right upper posterior thigh but soft and no concerning findings. HEENT: AT/NC, EOMI, PERRLA, dry MM, no carotid bruits or JVD noted. Lungs: Severely diminished, greater bases, mildly increased respiratory rate but no distress, on chronic supplementation, no appreciated rales, ronchi or wheezing. Heart: Currently regular rate and rhythm; no gallop, rub audible. Abdomen: Soft, mild discomfort elicited to bilateral lower quadrant but no rebound or guarding, mild distention, distant decreased BS, no appreciated HSM. Extremities: No cyanosis, no clubbing, no marked peripheral edema noted. Neurological: Patient awake, alert, oriented as noted, cognitive function intact; pupils equally reactive to light and accommodation, cranial nerves grossly normal, moving all 4 extremities, no focal deficits, strength moderately globally decreased. Psychiatric: Affect appears fatigued, no acute evidence of depressive or anxiety feelings but does have underlying history. Results Lab / Micro Data 09/10/23 18:40 09/10/23 18:40 Labs: Laboratory Results - last 24 hr 09/10/23 18:40: WBC 18.0 H, RBC 6.30 H, Hgb 15.2 H, Hct 48.2 H, MCV 76.5 L, MCH 24.1 L, MCHC 31.5 L, RDW Std Deviation 55.5 H, RDW Coeff of Brittany 20.2 H, Plt Count 206, MPV 10.0, Immature Gran % (Auto) 0.700, Neut % (Auto) 83.3 H, Lymph % (Auto) 7.8 L, [place] % (Auto) 7.3, Eos % (Auto) 0.7, Baso % (Auto) 0.2, Absolute Neuts (auto) 15.0 H, Absolute Lymphs (auto) 1.41, Nucleated RBC % 0, Differential Comment SCANNED, Anisocytosis 2+, Microcytosis 2+, PT 26.7 H, INR 2.5, Sodium 131 L, Potassium 3.6, Chloride 96 L, Carbon Dioxide 23.0, Anion Gap 12, BUN 14, Creatinine 0.77, Estim Creat Clear Calc 40.99, Est GFR (MDRD) Af Amer 96, Est GFR (MDRD) Non-Af 79, BUN/Creatinine Ratio 18.2, Glucose 233 H, Calcium 9.3, Total Bilirubin 0.90, AST 20, ALT 29, Alkaline Phosphatase 98, Troponin I High Sens 7, Total Protein 6.5, Albumin 3.4, Globulin 3.1, Albumin/Globulin Ratio 1.1 09/10/23 19:21: Lactic Acid 1.4 09/10/23 20:41: Urine Color Yellow, Urine Clarity Clear, Urine pH 6.0, Ur Specific [place] 1.015, Urine Protein 15 H, Urine Glucose (UA) 50 H, Urine Ketones 15 H, Urine Occult Blood 10 H, Urine Nitrite Negative, Urine Bilirubin Negative, Urine Urobilinogen 1 H, Ur Leukocyte Esterase 25 H, Urine RBC 0 SEEN, Urine WBC 0-5 SEEN, Ur Squamous Epith Cells 0-5 SEEN, Urine Bacteria 0 SEEN, Hyaline Casts 0-5 SEEN, Urine Mucus RARE Imaging Radiology Impression Chest X-Ray 09/10/23 19:25 IMPRESSION: Left lower lobe pneumonia. Electronically Signed: Vinny Kay MD at 20:09 EDT , Abdomen/Pelvis CT 09/10/23 20:17 IMPRESSION: Sigmoid diverticulitis. 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 #1. Acute Diverticulitis with associated lightheadedness, dizziness, nausea, emesis, poor oral intake ability: CT A/P w/ evidence of sigmoid diverticulitis. Will admit to [facility], maintain on hydration, monitor I&Os, allow clears and ADAT in the AM, treat with IV zosyn regimen, PPI, anti-emetics, pain regimen PRN. Consider diet advancement to clears in AM if clinically improved. If continues to tolerate diet and pill transition would plan potential discharge to home 09/11/23. PT/OT/CM consultations for discharge planning. #2. Questionable left lower lobe pneumonia: Chest x-ray with questionable left lower lobe infiltrate however CT abdomen and pelvis with no evidence of any infiltrates at the lung bases and no recent specific pulmonary type complaints, thus suspect CXR over read but will continue to closely monitor. #3. Chronic COPD, Pulmonary hypertension w/ Chronic Hypoxic Respiratory Failure (4L NC): Will continue home chronic oxygen supplementation, maintain on ATC budesonide therapy, PRN albuterol. Will continue patient home ambrisentan and sildenafil home regimen, encourage continued outpatient close follow-up with pulmonary hypertensive clinic. #4. Anxiety and Depression/Panic disorder/Claustrophobia: We will continue patient home alprazolam and sertraline as well as olanzapine home regimen with encourage close continued follow-up with outpatient counseling/PCP/psychiatry as previously arranged. #5. PAF: We will continue patient home diltiazem and Coumadin regimen with INR trending, 2.5 upon current presentation, therapeutic. #6. Hypercoagulable state w/ Lupus anticoagulant disorder w/ Hx VTE (DVT, PE): We will continue patient home Coumadin regimen with INR trending, 2.5 upon current presentation, therapeutic. #7. Hx TIA: We will continue patient home Coumadin regimen with INR trending as well as statin therapy and hypertensive regimen in addition to diabetic regimen with adjustments as noted. #8. Diabetes mellitus type II: Hold oral home regimen, ADA diet, accu checks w/ ISS. #9. Hypertension: Continue home regimen including diltiazem with hold temporarily on diuretics, resume once dizziness improved, PRN hydralazine. #10. Hyperlipidemia: We will continue patient on statin therapy. #11. GERD: We will continue patient on PPI. #12. Former tobacco use: Encourage continued tobacco cessation. #13. DVT prophylaxis: We will continue patient home Coumadin regimen with INR trending, 2.5 upon current presentation. #14. CODE status: Patient YULIET is her daughter who is present and living will is currently in place. Discussed CODE status at length including difference between FULL code, DNR-CCA and DNR-CC status. Following discussions about the differences in these status, requested Full Code status. Advanced Care Planning Face to Face Time: 16 minutes. Charges/Coding Visit Charges Inpatient E&M: 44738 Init Hosp L2 Procedures Hospitalists Procedures: 41212 Advncd Care Plan 30 Min
[2023-09-10 22:00] VITALS: BP 146/66; PULSE 70; RESP 16; O2SAT 97
[2023-09-10] MEDS: Azithromycin 500 MG in Dextrose 5%-Water (250mL Bag) 250 ML 250 MG IV (22:04)
[2023-09-10 22:34] VITALS: BP 146/66; PULSE 90; RESP 21; TEMP 36.6; O2SAT 97
[2023-09-10 23:00] VITALS: BP 144/67; PULSE 87; RESP 20; TEMP 36.9; O2SAT 97
[2023-09-10 23:02] VITALS: BMI 32.2
[2023-09-10] MEDS: metroNIDAZOLE 500 MG/100 ML BAG 100 MG IV (23:27)
[2023-09-10] MEDS: 0.9% Normal Saline (1000mL) 1,000 ML 100 ML IV (23:28)
[2023-09-10] MEDS: Pravastatin 40 MG Tablet PO (23:36)
[2023-09-10] MEDS: Potassium Chloride Oral Tablet 20 MEQ PO (23:36)
[2023-09-10 23:49] VITALS: O2SAT 98
[2023-09-10] MEDS: Piperacil/Tazobactam 3.375 GM in 0.9% Normal Saline (50mL MB+) 50 ML IV (23:59)
[2023-09-11] VITALS (8 sets, daily range): BP systolic 127–147; BP diastolic 47–61; PULSE 70–89; RESP 16–18; TEMP 36.4–37; O2SAT 92–96; BMI 32.0
[2023-09-11] MEDS: SILDENAFIL CITRATE 20 MG TABLET 60 MG PO ×4 (01:11→21:26)
[2023-09-11] MEDS: OLANZapine 5 MG/TAB TAB.RAPDIS PO ×2 (01:14→21:26)
[2023-09-11] MEDS: Potassium Chloride Oral Tablet 20 MEQ PO ×3 (05:38→21:26)
[2023-09-11] MEDS: Piperacil/Tazobactam 3.375 GM in 0.9% Normal Saline (50mL MB+) 50 ML IV ×3 (05:38→21:40)
[2023-09-11] MEDS: Budesonide Respules 0.5 MG/2 ML AMPUL.NEB. INHALATION ×2 (06:52→19:18)
[2023-09-11 07:12] LABS: Absolute Lymphocyte Count 1.03 X10^3/uL (0.83-4.51); Absolute Neutrophil Count 8.1 X10^3/uL (2.0-7.7); Basophil# 0.03 X10^3/uL; Basophil% 0.3 % (0-1); Eosinophil# 0.26 X10^3/uL; Eosinophils% 2.5 % (0-5); Hematocrit 40.8 % (37-47); Hemoglobin 12.4 g/dL (12.0-15.0); Lymphocyte # 1.03 X10^3/ul (0.83-4.51); Lymphocyte % 10.1 % (19-41); Mean Corp Hgb Conc 30.4 g/dL (32-36); Mean Corpuscular Hgb 23.7 pg (27.0-32.0); Mean Platelet Vol. 10.5 fl (6.2-12.0); Monocyte# 0.77 X10^3/uL; Monocyte% 7.5 % (0-10); NRBC Flagged by Analyzer 0 % (0-5); Neutrophil # 8.07 X10^3/uL (2.7-7.7); Platelet Count 145 K/mm3 (150-450); RBC Distribution Width CV 19.9 % (11.6-14.6); RBC Distribution Width SD 57.2 fl (35.1-43.9); Red Blood Count 5.23 M/mm3 (4.2-5.4); White Blood Count 10.2 K/mm3 (4.4-11.0)
[2023-09-11 07:28] LABS: Prothrombin Time (Protime)PT. 30.5 SECONDS (11.7-14.9)
[2023-09-11 08:19] LABS: AST(SGOT) 16 U/L (15-37); Alanine Aminotransfer ALT/SGPT 21 U/L (13-56); Albumin, Serum 2.7 g/dL (3.2-5.0); Alkaline Phosphatase 74 U/L (45-117); Anion Gap 7 (5-15); BUN 9 mg/dL (7-18); BUN/Creat Ratio 15.2 RATIO (10-20); Chloride 102 mmol/L (98-107); Creatinine, Serum 0.59 mg/dL (0.55-1.02); EST Glomerular Filtration Rate 107 mL/min (>60); Est Glom Filt Rate - Afr Amer 129 mL/min (>60); Estimated Creatinine Clearance 70.05 ml/min; Globulin 2.6 g/dL (2.2-4.2); Glucose 138 mg/dL (74-106); Potassium 3.6 mmol/L (3.5-5.1); Protein, Total 5.3 g/dL (6.4-8.2); Sodium Level 133 mmol/L (136-145)
[2023-09-11] MEDS: dilTIAZem CD 120 MG Capsule PO (10:36)
[2023-09-11] MEDS: Pantoprazole Sodium 40 MG Tablet PO (10:36)
[2023-09-11] MEDS: Spironolactone 50 MG Tablet PO (10:37)
[2023-09-11] MEDS: Sertraline 100 MG Tablet PO (10:37)
[2023-09-11] MEDS: Tolterodine Tartrate 2 MG CAP.SA PO (10:37)
[2023-09-11] MEDS: dilTIAZem CD 240 MG Capsule PO (10:37)
[2023-09-11] MEDS: Nystatin Ointment 1 APPLIC TOPICAL (10:37)
--- NOTE | 2023-09-11 11:13 | CASEMGMT ---
Addendum entered by Nelia Nino 09/11/23 14:42: KAREN BUTCHER into pt room, pt sitting in chair. Pt does not feel she will need therapy at home and she would like to continue with CCN. Updated Tim at [facility]. Pt two dtrs present in room and are agreeable to the plan. 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 Updated hosptialist. Pt is aware that should she get home and change her mind about HHC, she can contact her PCP. She and family deny further needs at this time. Original Note: KAREN BUTCHER into pt room, pt with 2 dtrs present. Pt lives alone and states she is I in ADL's currently. She has a FWW at home that she has been using most recently but typically does not. Pt has a BGM with sufficient supply of strips and lancets. She has oxygen through [employer] with helios portable tanks. Pt dtr will bring in tanks for dc. Pt has pox as well. Pt is active with [facility]. She does not drive and dtr transports her to medical appts. Pt feels she can return home with CCN continuing. KAREN BUTCHER to follow therapy and oxygen needs.
--- NOTE | 2023-09-11 11:44 | PN.HOSP_ITS ---
Reason for Visit Reason for Visit: Diagnoses Diverticulitis of intestine, part unspecified, without perforation or abscess w ithout bleeding (09/10/23) Subjective Subjective Patient was admitted yesterday evening for acute on chronic dizziness/ligh theadedness with some nausea/vomiting/diarrhea and recent poor p.o. intake. She was found on imaging to have acute sigmoid diverticulitis, initiated on antibiotics and clear liquid diet and admitted for further management. Saw patient at the bedside this morning, 2 daughters present. Patient was sitting up comfortably in bed, conversing normally, in no acute distress. Patient is on chronic oxygen at 4 to 6 L nasal cannula for pulm hypertension. She has been on supplemental oxygen for about 20 years. She states this morning that her dizziness is slightly improved from yesterday but notes that she has not gotten up to walk around yet this morning. She has not had any bowel movements since yesterday. She had some crampy abdominal pain over the last few days and this is improved today. She has not had any episodes of nausea or vomiting since yesterday. Denies any fevers or chills. No other acute concerns. Objective Data Objective Data Vital Signs: Vital Signs Temp Pulse Resp BP Pulse Ox O2 Del Method O2 Flow Rate 97.6 F L 81 18 142/47 H 96 Venturi Mask 5 09/11/23 08:00 09/11/23 08:00 09/11/23 09:00 09/11/23 08:00 09/11/23 08:00 09/11/23 09:00 09/11/23 11:12 FiO2 40 09/11/23 08:00 Oxygen Flow Rate (L/min) 5 Oxygen Delivery Method Venturi Mask Weight: 85.1 kg Body Mass Index (BMI) 32.0 Intake & Output: Intake and Output for Last 24 Hours 09/09/23 09/10/23 09/11/23 23:59 23:59 23:59 Intake Total 1311.67 / 1411.67 1493.33 / 1493.33 Balance 1311.67 / 1411.67 1493.33 / 1493.33 Lab / Micro Data 09/11/23 06:15 09/11/23 06:15 Labs: Laboratory Results - last 24 hr 09/10/23 18:40: WBC 18.0 H, RBC 6.30 H, Hgb 15.2 H, Hct 48.2 H, MCV 76.5 L, MCH 24.1 L, MCHC 31.5 L, RDW Std Deviation 55.5 H, RDW Coeff of Brittany 20.2 H, Plt Count 206, MPV 10.0, Immature Gran % (Auto) 0.700, Neut % (Auto) 83.3 H, Lymph % (Auto) 7.8 L, Arroyo % (Auto) 7.3, Eos % (Auto) 0.7, Baso % (Auto) 0.2, Absolute Neuts (auto) 15.0 H, Absolute Lymphs (auto) 1.41, Nucleated RBC % 0, Differential Comment SCANNED, Anisocytosis 2+, Microcytosis 2+, PT 26.7 H, INR 2.5, Sodium 131 L, Potassium 3.6, Chloride 96 L, Carbon Dioxide 23.0, Anion Gap 12, BUN 14, Creatinine 0.77, Estim Creat Clear Calc 40.99, Est GFR (MDRD) Af Amer 96, Est GFR (MDRD) Non-Af 79, BUN/Creatinine Ratio 18.2, Glucose 233 H, Calcium 9.3, Total Bilirubin 0.90, AST 20, ALT 29, Alkaline Phosphatase 98, Troponin I High Sens 7, Total Protein 6.5, Albumin 3.4, Globulin 3.1, Albumin/Globulin Ratio 1.1 09/10/23 19:21: Lactic Acid 1.4 09/10/23 20:41: Urine Color Yellow, Urine Clarity Clear, Urine pH 6.0, Ur Specific [place] 1.015, Urine Protein 15 H, Urine Glucose (UA) 50 H, Urine Ketones 15 H, Urine Occult Blood 10 H, Urine Nitrite Negative, Urine Bilirubin Negative, Urine Urobilinogen 1 H, Ur Leukocyte Esterase 25 H, Urine RBC 0 SEEN, Urine WBC 0-5 SEEN, Ur Squamous Epith Cells 0-5 SEEN, Urine Bacteria 0 SEEN, Hyaline Casts 0-5 SEEN, Urine Mucus RARE 09/11/23 06:15: WBC 10.2, RBC 5.23, Hgb 12.4, Hct 40.8, MCV 78.0 L, MCH 23.7 L, MCHC 30.4 L, RDW Std Deviation 57.2 H, RDW Coeff of Brittany 19.9 H, Plt Count 145 L, MPV 10.5, Immature Gran % (Auto) 0.600, Neut % (Auto) 79.0 H, Lymph % (Auto) 10.1 L, Arroyo % (Auto) 7.5, Eos % (Auto) 2.5, Baso % (Auto) 0.3, Absolute Neuts (auto) 8.1 H, Absolute Lymphs (auto) 1.03, Nucleated RBC % 0, PT 30.5 H, INR 3.0, Sodium 133 L, Potassium 3.6, Chloride 102, Carbon Dioxide 24.0, Anion Gap 7, BUN 9, Creatinine 0.59, Estim Creat Clear Calc 70.05, Est GFR (MDRD) Af Amer 129, Est GFR (MDRD) Non-Af 107, BUN/Creatinine Ratio 15.2, Glucose 138 H, Calcium 8.0 L, Total Bilirubin 0.50, AST 16, ALT 21, Alkaline Phosphatase 74, Total Protein 5.3 L, Albumin 2.7 L, Globulin 2.6, Albumin/Globulin Ratio 1.0 Radiography Diagnostic Testing: Radiology Impression Chest X-Ray 09/10/23 19:25 IMPRESSION: Left lower lobe pneumonia. Electronically Signed: Vinny Kay MD at 20:09 EDT , Abdomen/Pelvis CT 09/10/23 20:17 IMPRESSION: Sigmoid diverticulitis. Electronically Signed: Vinny Kay MD at 21:08 EDT , Physical Exam Const alert, oriented x3 and no apparent distress Constitutional Narrative: Pleasant elderly female, obese, sitting up comfortably in bed, conversing normally, in no acute distress. General Appearance: cooperative and comfortable HEENT normocephalic, head/scalp atraumatic, hearing grossly normal bilaterally, nasal mucous membranes and turbinates normal and moist oral mucous membranes Eyes PERRL, EOMs intact bilaterally and conjunctivae normal Neck full ROM Chest inspection of chest normal Resp normal respiratory effort and no use of accessory muscles Resp Narrative: Breathing comfortably on home 4 L nasal cannula at rest. Mildly decreased breath sounds bilaterally throughout. No wheezing or crackles noted. Cardio regular rate, regular rhythm, no murmurs and peripheral pulses 2+ throughout GI normal to inspection, nondistended, normoactive bowel sounds, soft to palpation, non-tender and non-distended Back/Spine normal ROM Extremity normal to inspection, full ROM and no pedal edema Skin no rashes or lesions noted Neuro moves all extremities and no focal motor deficits Speech: speech normal Psych mental status grossly normal Assessment & Plan Assessment/Plan (1) Diverticulitis: PLAN: Plan Patient is a 68-year-old female who presented [facility] ED on 09/10/2023 with acute on chronic dizziness/lightheadedness with nausea/vomiting/diarrhea and recent poor p.o. intake. 1. Acute sigmoid diverticulitis ? CT abdomen pelvis on admit showed diverticulosis with thickening of sigmoid colon wall and pericolic inflammation changes consistent with acute diverticulitis. Leukocytosis present on admission, otherwise patient afebrile and hemodynamically stable. Leukocytosis improved and patient feeling much improved after IV fluid resuscitation. Tolerating clear liquid diet well, will escalate to regular diet this evening. Continue IV Zosyn for now. If patient remains stable tomorrow, likely discharge home on p.o. antibiotics to complete 7-day course of antibiotics total. 2. Acute on chronic lightheadedness/dizziness, improving ? Suspect acute dizziness was primarily due to dehydration in the setting of GI losses and recent poor p.o. intake. Feels mild to moderately improved after IV fluid resuscitation. PT/OT/case management following. Good therapy scores on 09/10, will be okay for home with no therapy needs. 3. Chronic hypoxic respiratory failure due to pulmonary hypertension and COPD ? Chronically on 4 L nasal cannula at rest and usually increases to 6 L with exertion. Chest x-ray on admit showed concern for possible left lower lobe pneumonia but patient with no respiratory symptoms and has been stable on home amount of oxygen since admission. Will hold on any treatment for pneumonia. Continue home inhalers and home pulmonary hypertension medications. 4. History of VTE with lupus anticoagulant disorder on warfarin with recent supratherapeutic INR ? On warfarin, goal INR 2.0-3.0. INR was 5.0 on recent outpatient check on 09/06. Patient had been prescribed p.o. doxycycline for an upper respiratory infection at beginning of July, took 10 days of doxycycline and then but noticed there was a refill available and she continued to take more doxycycline until an appointment in mid August. Was then placed on prednisone for concern for lower extremity vasculitis and mid August. Suspect INR was elevated likely due to extended course of doxycycline, lower concern that steroids were the cause. Doxycycline and steroids were both placed on allergy list on admit, will remove both now, recommend only short courses of doxycycline going forward. INR 2.5 on admit here, stable. Continue home warfarin dosing. Chronic medical conditions: ? Obesity: BMI 32 on admit. Complicates hospital course, care and prognosis. ? Anxiety/depression/panic disorder: Stable. Continue home sertraline, olanzapine, alprazolam twice daily as needed. ? Paroxysmal A-fib: Rate controlled A-fib on admission. Continue home diltiazem and warfarin. ? History of TIA: Continue home statin and warfarin. ? Type 2 diabetes mellitus: Home regimen of metformin 1000 mg at night. Last A1c in July was 6.5%. Continue sliding scale insulin with meals while inpatient. ? Hypertension: Continue home spironolactone and Lasix. ? Hyperlipidemia: Continue home statin. ? GERD: Continue home PPI. ? Former tobacco use: Encouraged continued cessation. DVT prophylaxis: Warfarin CODE STATUS: DNR CCA, DNI Expected disposition: Home, 1 to 2 days Total clinical time spent by myself addressing the patient's medical issues, reviewing all the data, and collaborating with patient's care team: 35 minutes. Charges/Coding Visit Charges Inpatient E&M: 70249 Subs Hosp L2
[2023-09-11] MEDS: Insulin Lispro 100 UNIT/ML INSULN.PEN SC ×3 (12:00→21:27)
[2023-09-11 12:13] LABS: Bedside Glucose 166 mg/dL (74-106)
--- NOTE | 2023-09-11 15:09 | CASEMGMT ---
Met with patient to complete JACOME form. JACOME form explained to patient who voiced understanding and signed form. Original form placed in pt?s chart and copy provided to?patient. Gilda Solo, Discharge Planning Asst
[2023-09-11] MEDS: Ensure Clear 120 ML Liquid PO (16:33)
[2023-09-11] MEDS: Furosemide 40 MG Tablet PO (16:35)
[2023-09-11 17:23] LABS: Bedside Glucose 210 mg/dL (74-106)
[2023-09-11] MEDS: ALPRAZolam 0.5 MG Tablet PO (18:50)
[2023-09-11] MEDS: Pravastatin 40 MG Tablet PO (21:26)
[2023-09-11 22:02] LABS: Bedside Glucose 199 mg/dL (74-106)
[2023-09-12] VITALS (9 sets, daily range): BP systolic 114–153; BP diastolic 48–65; PULSE 70–80; RESP 13–18; TEMP 36.5–36.8; O2SAT 40–97; BMI 32.8
[2023-09-12] MEDS: Insulin Lispro 100 UNIT/ML INSULN.PEN SC ×4 (05:58→22:48)
[2023-09-12] MEDS: SILDENAFIL CITRATE 20 MG TABLET 60 MG PO ×3 (06:00→22:42)
[2023-09-12] MEDS: Potassium Chloride Oral Tablet 20 MEQ PO ×3 (06:00→22:42)
[2023-09-12] MEDS: Piperacil/Tazobactam 3.375 GM in 0.9% Normal Saline (50mL MB+) 50 ML IV ×3 (06:00→22:42)
[2023-09-12] MEDS: Bisacodyl 10 MG Suppository RC (06:01)
[2023-09-12 06:22] LABS: Bedside Glucose 153 mg/dL (74-106)
[2023-09-12] MEDS: Budesonide Respules 0.5 MG/2 ML AMPUL.NEB. INHALATION ×2 (07:15→19:40)
--- NOTE | 2023-09-12 07:58 | CPS ---
Placed pt on 4 NC at this time. RN aware.
[2023-09-12 09:21] LABS: Hematocrit 41.4 % (37-47); Hemoglobin 12.4 g/dL (12.0-15.0); Mean Corpuscular Hgb 23.9 pg (27.0-32.0); Mean Corpuscular Volume 79.9 fL (81-99); Mean Platelet Vol. 9.1 fl (6.2-12.0); Platelet Count 141 K/mm3 (150-450); RBC Distribution Width CV 19.6 % (11.6-14.6); RBC Distribution Width SD 57.2 fl (35.1-43.9); Red Blood Count 5.18 M/mm3 (4.2-5.4)
[2023-09-12] MEDS: Spironolactone 50 MG Tablet PO (09:44)
[2023-09-12] MEDS: dilTIAZem CD 240 MG Capsule PO (09:44)
[2023-09-12] MEDS: Furosemide 40 MG Tablet PO ×2 (09:44→16:34)
[2023-09-12] MEDS: Pantoprazole Sodium 40 MG Tablet PO (09:44)
[2023-09-12] MEDS: Sertraline 100 MG Tablet PO (09:44)
[2023-09-12] MEDS: Tolterodine Tartrate 2 MG CAP.SA PO (09:44)
[2023-09-12] MEDS: dilTIAZem CD 120 MG Capsule PO (09:44)
[2023-09-12] MEDS: Nystatin Ointment 1 APPLIC TOPICAL ×2 (09:45→22:43)
--- NOTE | 2023-09-12 09:45 | PCM.DC ---
Discharge Instructions Diet Discharge Diet: No restrictions Activity Discharge Activity: No Restrictions Follow Up Care Test Results: Test results from this visit will be discussed in further detail at your follow-up appointment, if applicable. Discharge Plan Admission Admit Date/Time: 09/10/23 21:34 Primary Reason for Your Visit: dizziness, abdominal discomfort Attending Provider: Emeka Lowe Primary Care Provider: Jose Miguel Pedraza Consulting Providers: Alem Le Instructions Additional Instructions / Restrictions: Please take Augmentin 3 times daily for the next 7 days to complete a 10-day course of antibiotics total. Discharge Orders/Prescriptions Prescriptions: New amoxicillin-pot clavulanate 875-125 mg tablet 1 tab PO Q8H 9 Days Qty: 26 0RF ondansetron 4 mg tablet,disintegrating 4 mg PO Q8H PRN (Reason: nausea and vomiting) 4 Days Qty: 12 0RF Continued albuterol sulfate 90 mcg/actuation HFA aerosol inhaler 1 puff INHALATION Q6H PRN (Reason: bronchospasm) Qty: 8.5 3RF sertraline 100 mg tablet 100 mg PO DAILY Qty: 90 1RF diltiazem HCl [Matzim LA] 360 mg tablet extended release 24 hr 360 mg PO DAILY Qty: 90 2RF furosemide 40 mg tablet 40 mg PO BID Qty: 180 2RF tolterodine 2 mg capsule,extended release 24hr 2 mg PO DAILY Qty: 90 3RF ambrisentan 10 MG tablet 10 mg PO DAILY sildenafil 20 mg tablet 60 mg PO TID Oxygen, Home [Home Oxygen] 6 l NASAL CONT Rx Instructions: OF NOTE, PATIENT PRIOR OXYGEN SET-UP WITH 6L REST AND 6.5L ACTIVITY. During admission patient transitioned metformin 500 mg tablet 1,000 mg PO QHS warfarin 3 mg tablet 1.5 mg PO DAILY Protocol: Dose Management Condition: Thursday Dose/Route: 3 mg Instruction: 1 x 3 mg tablet Condition: Thursday Dose/Route: 3 mg Instruction: 1 x 3 mg tablet Condition: Thursday Dose/Route: 3 mg Instruction: 1 x 3 mg tablet Condition: Thursday Dose/Route: 3 mg Instruction: 1 x 3 mg tablet Condition: Dose/Route: 3 mg Instruction: 1 x 3 mg tablet Condition: Thursday Dose/Route: 3 mg Instruction: 1 x 3 mg tablet Condition: Thursday Dose/Route: 3 mg Instruction: 1 x 3 mg tablet Protocol Text: Adjustment Start Date: 05/22/22 INR Value: 4.3 INR Date: 05/21/22 Recheck Date: 05/28/22 Rx Instructions: 05/22/22 3 mg daily budesonide-formoterol 160-4.5 mcg/actuation HFA aerosol inhaler 2 puff INHALATION BID nystatin 100,000 unit/gram cream 1 applic topical PRN (DME) blood sugar diagnostic Strip See Rx Instructions .ROUTE .MEDSUPPLY Qty: 100 3RF Dose Instruction: As directed Rx Instructions: check blood sugar three times a day (DME) lancets [OneTouch UltraSoft Lancets] Misc See Rx Instructions .ROUTE .MEDSUPPLY Qty: 200 2RF Dose Instruction: As directed Rx Instructions: daily- check blood sugar three times a day Spiriva Respimat 1.25 mcg/actuation mist 2 puff inhalation DAILY Qty: 4 0RF pravastatin 40 mg tablet 40 mg PO QHS Qty: 90 3RF omeprazole 40 mg capsule,delayed release(DR/EC) 40 mg PO DAILY Qty: 90 3RF alprazolam [Xanax] 0.5 mg tablet 0.5 mg PO BID PRN (Reason: anxiety) Qty: 60 0RF spironolactone 50 mg tablet 50 mg PO DAILY Qty: 90 1RF potassium chloride 20 mEq tablet extended release 20 meq PO TID Qty: 270 0RF olanzapine 5 mg tablet 5 mg PO DAILY Qty: 90 1RF Referrals / Follow Up: Jose Miguel Pedraza, [Primary Care Provider] - Disposition Disposition (needs filled in before D/C Order can be placed): Home, Self Care
--- NOTE | 2023-09-12 09:49 | PCM.DC.SUM ---
Providers Date of Admission: 09/10/23 Primary Care Physician: Dr. Jose Miguel Pedraza, DO Reason For Visit: ACUTE DIVERTICULITIS Diagnosis Discharge Diagnosis (1) Diverticulitis: Status: Acute Code(s): K57.92 - Diverticulitis of intestine, part unspecified, without perforation or abscess without bleeding Plan Patient is a 68-year-old female who presented [facility] ED on 09/10/2023 with acute on chronic dizziness/lightheadedness with nausea/vomiting/diarrhea and recent poor p.o. intake. 1. Acute sigmoid diverticulitis ? CT abdomen pelvis on admit showed diverticulosis with thickening of sigmoid colon wall and pericolic inflammation changes consistent with acute diverticulitis. Leukocytosis present on admission, otherwise patient afebrile and hemodynamically stable. Leukocytosis improved and patient feeling much improved after IV fluid resuscitation. Tolerating clear liquid diet well, will escalate to regular diet this evening. Continue IV Zosyn for now. If patient remains stable tomorrow, likely discharge home on p.o. antibiotics to complete 7-day course of antibiotics total. 2. Acute on chronic lightheadedness/dizziness, improving ? Suspect acute dizziness was primarily due to dehydration in the setting of GI losses and recent poor p.o. intake. Feels mild to moderately improved after IV fluid resuscitation. PT/OT/case management following. Good therapy scores on 09/10, will be okay for home with no therapy needs. 3. Chronic hypoxic respiratory failure due to pulmonary hypertension and COPD ? Chronically on 4 L nasal cannula at rest and usually increases to 6 L with exertion. Chest x-ray on admit showed concern for possible left lower lobe pneumonia but patient with no respiratory symptoms and has been stable on home amount of oxygen since admission. Will hold on any treatment for pneumonia. Continue home inhalers and home pulmonary hypertension medications. 4. History of VTE with lupus anticoagulant disorder on warfarin with recent supratherapeutic INR ? On warfarin, goal INR 2.0-3.0. INR was 5.0 on recent outpatient check on 09/06. Patient had been prescribed p.o. doxycycline for an upper respiratory infection at beginning of July, took 10 days of doxycycline and then but noticed there was a refill available and she continued to take more doxycycline until an appointment in mid August. Was then placed on prednisone for concern for lower extremity vasculitis and mid August. Suspect INR was elevated likely due to extended course of doxycycline, lower concern that steroids were the cause. Doxycycline and steroids were both placed on allergy list on admit, will remove both now, recommend only short courses of doxycycline going forward. INR 2.5 on admit here, stable. Continue home warfarin dosing. Chronic medical conditions: ? Obesity: BMI 32 on admit. Complicates hospital course, care and prognosis. ? Anxiety/depression/panic disorder: Stable. Continue home sertraline, olanzapine, alprazolam twice daily as needed. ? Paroxysmal A-fib: Rate controlled A-fib on admission. Continue home diltiazem and warfarin. ? History of TIA: Continue home statin and warfarin. ? Type 2 diabetes mellitus: Home regimen of metformin 1000 mg at night. Last A1c in July was 6.5%. Continue sliding scale insulin with meals while inpatient. ? Hypertension: Continue home spironolactone and Lasix. ? Hyperlipidemia: Continue home statin. ? GERD: Continue home PPI. ? Former tobacco use: Encouraged continued cessation. DVT prophylaxis: Warfarin CODE STATUS: DNR CCA, DNI Expected disposition: Home, 1 to 2 days Total clinical time spent by myself addressing the patient's medical issues, reviewing all the data, and collaborating with patient's care team: 35 minutes. Medications at Discharge Home Medications ambrisentan 10 mg tablet 10 mg PO DAILY 04/21/16 sildenafil 60 mg PO TID 07/24/21 albuterol sulfate 90 mcg/actuation aerosol inhaler 1 puff inhalation Q6H PRN bronchospasm #8.5 grams 08/28/21 blood sugar diagnostic #100 ea 10/09/21 lancets (OneTouch UltraSoft Lancets) #200 ea 10/09/21 tiotropium bromide 1.25 mcg/actuation mist for inhalation (Spiriva Respimat) 2 puff inhalation DAILY #4 grams 12/03/21 pravastatin 40 mg tablet 40 mg PO QHS #90 tabs 09/05/22 diltiazem HCl 360 mg tablet,extended release 24 hr (Matzim LA) 360 mg PO DAILY heart #90 tabs 04/30/23 Oxygen, Home [Home Oxygen] 6 l NASAL CONT 05/15/23 furosemide 40 mg tablet 40 mg PO BID #180 tabs 06/02/23 tolterodine 2 mg capsule,extended release 24 hr 2 mg PO DAILY #90 caps 06/02/23 alprazolam 0.5 mg tablet (Xanax) 0.5 mg PO BID PRN anxiety #60 tabs 07/22/23 omeprazole 40 mg capsule,delayed release 40 mg PO DAILY #90 caps 07/22/23 spironolactone 50 mg tablet 50 mg PO DAILY #90 tabs 07/28/23 potassium chloride 20 mEq tablet,extended release 20 meq PO TID #270 tabs 08/12/23 sertraline 100 mg tablet 100 mg PO DAILY #90 tabs 09/01/23 olanzapine 5 mg tablet 5 mg PO DAILY #90 tabs 09/08/23 budesonide-formoterol HFA 160 mcg-4.5 mcg/actuation aerosol inhaler 2 puff inhalation BID 09/10/23 metformin 500 mg tablet 1,000 mg PO QHS 09/10/23 nystatin 100,000 unit/gram topical cream 1 applic topical PRN 09/10/23 warfarin 3 mg tablet 1.5 mg PO DAILY 09/10/23 amoxicillin 875 mg-potassium clavulanate 125 mg tablet 1 tab PO Q8H 9 days #26 tabs 09/12/23 Weight / BMI Weight Weight: 86.6 kg Body Mass Index (BMI) 32.8 ABG / Lab / Microbiology Data 09/12/23 09:15 09/11/23 06:15 Laboratory: Laboratory Results - last 24 hr 09/11/23 11:51: POC Glucose 166 H 09/11/23 16:20: POC Glucose 210 H 09/11/23 21:22: POC Glucose 199 H 09/12/23 05:58: POC Glucose 153 H 09/12/23 09:15: WBC 8.0, RBC 5.18, Hgb 12.4, Hct 41.4, MCV 79.9 L, MCH 23.9 L, MCHC 30.0 L, RDW Std Deviation 57.2 H, RDW Coeff of Brittany 19.6 H, Plt Count 141 L, MPV 9.1 D/C Instructions Discharge Diet: No restrictions Meaningful Use Info Ischemic Stroke Statin Dosing Therapy Reference: STATIN DOSE THERAPY REFERENCE: * Patients > 75 years receive moderate or high dose statin therapy. * Patients 75 years or YOUNGER should receive HIGH intensity statin dose unless contraindicated. You will be required to document reason for non-treatment if statin daily dose does not meet guidelines. HIGH DOSE STATIN THERAPY DAILY Atorvastatin > than or = to 40 mg Rosuvastatin > than or = to 20 mg Amlodipine + Atorvastatin > than or = to 2.5/40 mg Ezetimibe + Simvastatin 10/80 mg Simvastatin 80mg Discharge Plan Admission Admit Date/Time: 09/10/23 21:34 Primary Reason for Your Visit: dizziness, abdominal discomfort Attending Provider: Emeka Lowe Primary Care Provider: Jose Miguel Pedraza Consulting Providers: Alem Le Instructions Additional Instructions / Restrictions: Please take Augmentin 3 times daily for the next 8 days to complete a 10-day course of antibiotics total. Discharge Orders/Prescriptions Prescriptions: New amoxicillin-pot clavulanate 875-125 mg tablet 1 tab PO Q8H 9 Days Qty: 26 0RF Continued albuterol sulfate 90 mcg/actuation HFA aerosol inhaler 1 puff INHALATION Q6H PRN (Reason: bronchospasm) Qty: 8.5 3RF sertraline 100 mg tablet 100 mg PO DAILY Qty: 90 1RF diltiazem HCl [Matzim LA] 360 mg tablet extended release 24 hr 360 mg PO DAILY Qty: 90 2RF furosemide 40 mg tablet 40 mg PO BID Qty: 180 2RF tolterodine 2 mg capsule,extended release 24hr 2 mg PO DAILY Qty: 90 3RF ambrisentan 10 MG tablet 10 mg PO DAILY sildenafil 20 mg tablet 60 mg PO TID Oxygen, Home [Home Oxygen] 6 l NASAL CONT Rx Instructions: OF NOTE, PATIENT PRIOR OXYGEN SET-UP WITH 6L REST AND 6.5L ACTIVITY. During admission patient transitioned metformin 500 mg tablet 1,000 mg PO QHS warfarin 3 mg tablet 1.5 mg PO DAILY Protocol: Dose Management Condition: Thursday Dose/Route: 3 mg Instruction: 1 x 3 mg tablet Condition: Thursday Dose/Route: 3 mg Instruction: 1 x 3 mg tablet Condition: Thursday Dose/Route: 3 mg Instruction: 1 x 3 mg tablet Condition: Thursday Dose/Route: 3 mg Instruction: 1 x 3 mg tablet Condition: Dose/Route: 3 mg Instruction: 1 x 3 mg tablet Condition: Thursday Dose/Route: 3 mg Instruction: 1 x 3 mg tablet Condition: Thursday Dose/Route: 3 mg Instruction: 1 x 3 mg tablet Protocol Text: Adjustment Start Date: 05/22/22 INR Value: 4.3 INR Date: 05/21/22 Recheck Date: 05/28/22 Rx Instructions: 05/22/22 3 mg daily budesonide-formoterol 160-4.5 mcg/actuation HFA aerosol inhaler 2 puff INHALATION BID nystatin 100,000 unit/gram cream 1 applic topical PRN (DME) blood sugar diagnostic Strip See Rx Instructions .ROUTE .MEDSUPPLY Qty: 100 3RF Dose Instruction: As directed Rx Instructions: check blood sugar three times a day (DME) lancets [OneTouch UltraSoft Lancets] Misc See Rx Instructions .ROUTE .MEDSUPPLY Qty: 200 2RF Dose Instruction: As directed Rx Instructions: daily- check blood sugar three times a day Spiriva Respimat 1.25 mcg/actuation mist 2 puff inhalation DAILY Qty: 4 0RF pravastatin 40 mg tablet 40 mg PO QHS Qty: 90 3RF omeprazole 40 mg capsule,delayed release(DR/EC) 40 mg PO DAILY Qty: 90 3RF alprazolam [Xanax] 0.5 mg tablet 0.5 mg PO BID PRN (Reason: anxiety) Qty: 60 0RF spironolactone 50 mg tablet 50 mg PO DAILY Qty: 90 1RF potassium chloride 20 mEq tablet extended release 20 meq PO TID Qty: 270 0RF olanzapine 5 mg tablet 5 mg PO DAILY Qty: 90 1RF Referrals / Follow Up: Jose Miguel Pedraza DO [Primary Care Provider] - Disposition Disposition (needs filled in before D/C Order can be placed): Home, Self Care
--- NOTE | 2023-09-12 10:07 | PN.HOSP_ITS ---
Reason for Visit Reason for Visit: Diagnoses Diverticulitis of intestine, part unspecified, without perforation or abscess w ithout bleeding (09/10/23) Subjective Subjective Patient seen at bedside this morning. States that overnight and earlier this morning she had to small to medium sized bowel movements. She did note mild bright red blood in both bowel movements. Does note that she has a history of hemorrhoids but has not had bleeding from them in a while. She denied any significant pain or discomfort with the 2 bowel movements. She otherwise tolerated a clear liquid diet well although yesterday and was looking forward to trying a normal diet this morning. She did fairly well with therapy yesterday. Does continue to report mild dizziness today but improved from admission. No other acute concerns this morning. Objective Data Objective Data Vital Signs: Vital Signs Temp Pulse Resp BP Pulse Ox O2 Del Method O2 Flow Rate 97.8 F 78 13 132/54 H 94 Nasal Cannula 4 09/12/23 07:57 09/12/23 10:00 09/12/23 10:00 09/12/23 10:00 09/12/23 10:00 09/12/23 10:00 09/12/23 10:00 FiO2 40 09/12/23 03:26 Oxygen Flow Rate (L/min) 4 Oxygen Delivery Method Nasal Cannula Weight: 86.6 kg Body Mass Index (BMI) 32.8 Intake & Output: Intake and Output for Last 24 Hours 09/10/23 09/11/23 09/12/23 23:59 23:59 23:59 Intake Total 1311.67 / 1411.67 3143.33 / 3143.33 50 / 50 Output Total 700 / 700 Balance 1311.67 / 1411.67 2443.33 / 2443.33 50 / 50 Lab / Micro Data 09/12/23 09:15 09/11/23 06:15 Labs: Laboratory Results - last 24 hr 09/11/23 11:51: POC Glucose 166 H 09/11/23 16:20: POC Glucose 210 H 09/11/23 21:22: POC Glucose 199 H 09/12/23 05:58: POC Glucose 153 H 09/12/23 09:15: WBC 8.0, RBC 5.18, Hgb 12.4, Hct 41.4, MCV 79.9 L, MCH 23.9 L, MCHC 30.0 L, RDW Std Deviation 57.2 H, RDW Coeff of Brittany 19.6 H, Plt Count 141 L, MPV 9.1 Physical Exam Const alert, oriented x3 and no apparent distress Constitutional Narrative: Pleasant elderly female, obese, sitting up comfortably in bed, conversing normally, in no acute distress. General Appearance: cooperative and comfortable HEENT normocephalic, head/scalp atraumatic, hearing grossly normal bilaterally, nasal mucous membranes and turbinates normal and moist oral mucous membranes Eyes PERRL, EOMs intact bilaterally and conjunctivae normal Neck full ROM Chest inspection of chest normal Resp normal respiratory effort and no use of accessory muscles Resp Narrative: Breathing comfortably on home 4 L nasal cannula at rest. Mildly decreased breath sounds bilaterally throughout. No wheezing or crackles noted. Cardio regular rate, regular rhythm, no murmurs and peripheral pulses 2+ throughout GI normal to inspection, nondistended, normoactive bowel sounds, soft to palpation, non-tender and non-distended Back/Spine normal ROM Extremity normal to inspection, full ROM and no pedal edema Skin no rashes or lesions noted Neuro moves all extremities and no focal motor deficits Speech: speech normal Psych mental status grossly normal Assessment & Plan Assessment/Plan (1) Diverticulitis: PLAN: Plan Patient is a 68-year-old female who presented [facility] ED on 09/10/2023 with acute on chronic dizziness/lightheadedness with nausea/vomiting/diarrhea and recent poor p.o. intake. 1. Acute sigmoid diverticulitis with mild hematochezia ? CT abdomen pelvis on admit showed diverticulosis with thickening of sigmoid colon wall and pericolic inflammation changes consistent with acute diverticulitis. Leukocytosis present on admission, otherwise patient afebrile and hemodynamically stable. Leukocytosis improved and patient feeling much improved after IV fluid resuscitation. Tolerated clear liquid diet well on 09/10, escalated to regular diet on morning of 09/11, will monitor how she tolerates this. Continue IV Zosyn for now. Did have small bright red blood in 2 bowel movements early on 09/11, hemoglobin stable at baseline around 12-13. Will follow-up a.m. CBC tomorrow. If patient tolerates diet well and CBC remains stable, will plan to discharge home on p.o. Augmentin to complete a 10-day course of antibiotics total. 2. Acute on chronic lightheadedness/dizziness, improving ? Suspect acute dizziness was primarily due to dehydration in the setting of GI losses and recent poor p.o. intake. Feels moderately improved after IV fluid resuscitation. PT/OT/case management following. Good therapy scores on 09/10, will be okay for home with no therapy needs. 3. Chronic hypoxic respiratory failure due to pulmonary hypertension and COPD ? Chronically on 4 L nasal cannula at rest and usually increases to 6 L with exertion. Chest x-ray on admit showed concern for possible left lower lobe pneumonia but patient with no respiratory symptoms and has been stable on home amount of oxygen since admission. Will hold on any treatment for pneumonia. Continue home inhalers and home pulmonary hypertension medications. 4. History of VTE with lupus anticoagulant disorder on warfarin with recent supratherapeutic INR ? On warfarin, goal INR 2.0-3.0. INR was 5.0 on recent outpatient check on 09/06. Patient had been prescribed p.o. doxycycline for an upper respiratory infection at beginning of July, took 10 days of doxycycline and then but noticed there was a refill available and she continued to take more doxycycline until an appointment in mid August. Was then placed on prednisone for concern for lower extremity vasculitis and mid August. Suspect INR was elevated either due to the doxycycline or steroids. Both doxycycline and prednisone were placed on allergy list on admit; will keep both on at this time and clarify reason for both. INR 2.5 on admit here, stable. Continue home warfarin dosing. Chronic medical conditions: ? Obesity: BMI 32 on admit. Complicates hospital course, care and prognosis. ? Anxiety/depression/panic disorder: Stable. Continue home sertraline, olanzapine, alprazolam twice daily as needed. ? Paroxysmal A-fib: Rate controlled A-fib on admission. Continue home diltiazem and warfarin. ? History of TIA: Continue home statin and warfarin. ? Type 2 diabetes mellitus: Home regimen of metformin 1000 mg at night. Last A1c in July was 6.5%. Continue sliding scale insulin with meals while inpatient. ? Hypertension: Continue home spironolactone and Lasix. ? Hyperlipidemia: Continue home statin. ? GERD: Continue home PPI. ? Former tobacco use: Encouraged continued cessation. DVT prophylaxis: Warfarin CODE STATUS: DNR CCA, DNI Expected disposition: Home, 1 to 2 days Total clinical time spent by myself addressing the patient's medical issues, reviewing all the data, and collaborating with patient's care team: 35 minutes. Charges/Coding Visit Charges Inpatient E&M: 79208 Subs Hosp L2
[2023-09-12] MEDS: Mag Hydrox/Al Hydrox/Simeth 30 ML UDC PO ×2 (10:37→16:33)
[2023-09-12 12:24] LABS: Bedside Glucose 211 mg/dL (74-106)
[2023-09-12 17:18] LABS: Bedside Glucose 153 mg/dL (74-106)
[2023-09-12] MEDS: Albuterol 2.5 MG/3 ML VIAL.NEB. INHALATION (19:40)
[2023-09-12] MEDS: Ondansetron 4 MG/2 ML Vial IV (19:54)
[2023-09-12] MEDS: OLANZapine 5 MG/TAB TAB.RAPDIS PO (22:42)
[2023-09-12] MEDS: Pravastatin 40 MG Tablet PO (22:42)
[2023-09-12 23:13] LABS: Bedside Glucose 227 mg/dL (74-106)
[2023-09-13 02:30] VITALS: BP 143/52; PULSE 77; RESP 16; TEMP 36.8; O2SAT 96
[2023-09-13 04:16] VITALS: BMI 32.5
[2023-09-13] MEDS: SILDENAFIL CITRATE 20 MG TABLET 60 MG PO (05:33)
[2023-09-13] MEDS: Piperacil/Tazobactam 3.375 GM in 0.9% Normal Saline (50mL MB+) 50 ML IV (05:33)
[2023-09-13] MEDS: Potassium Chloride Oral Tablet 20 MEQ PO (05:33)
[2023-09-13] MEDS: 0.9% Normal Saline (250mL Bag) 250 ML 15 ML IV (05:33)
[2023-09-13] MEDS: Budesonide Respules 0.5 MG/2 ML AMPUL.NEB. INHALATION (07:00)
[2023-09-13] MEDS: Albuterol 2.5 MG/3 ML VIAL.NEB. INHALATION (07:00)
[2023-09-13 07:01] VITALS: PULSE 65; RESP 18; O2SAT 97
[2023-09-13] MEDS: Insulin Lispro 100 UNIT/ML INSULN.PEN SC (07:05)
[2023-09-13 07:25] LABS: Bedside Glucose 160 mg/dL (74-106)
[2023-09-13 08:00] VITALS: BP 124/47; PULSE 70; RESP 15; TEMP 36.6; O2SAT 94
[2023-09-13 08:28] LABS: Hematocrit 38.1 % (37-47); Hemoglobin 11.6 g/dL (12.0-15.0); Mean Corp Hgb Conc 30.4 g/dL (32-36); Mean Corpuscular Hgb 24.1 pg (27.0-32.0); Mean Corpuscular Volume 79.2 fL (81-99); Mean Platelet Vol. 9.3 fl (6.2-12.0); Platelet Count 128 K/mm3 (150-450); RBC Distribution Width CV 19.7 % (11.6-14.6); RBC Distribution Width SD 57.3 fl (35.1-43.9); Red Blood Count 4.81 M/mm3 (4.2-5.4); White Blood Count 6.2 K/mm3 (4.4-11.0)
[2023-09-13] MEDS: Spironolactone 50 MG Tablet PO (08:29)
[2023-09-13] MEDS: dilTIAZem CD 120 MG Capsule PO (08:31)
[2023-09-13] MEDS: Furosemide 40 MG Tablet PO (08:31)
[2023-09-13] MEDS: dilTIAZem CD 240 MG Capsule PO (08:31)
[2023-09-13] MEDS: Tolterodine Tartrate 2 MG CAP.SA PO (08:31)
[2023-09-13] MEDS: Pantoprazole Sodium 40 MG Tablet PO (08:32)
[2023-09-13] MEDS: Sertraline 100 MG Tablet PO (08:33)
[2023-09-13 08:38] LABS: Anion Gap 2 (5-15); BUN 5 mg/dL (7-18); BUN/Creat Ratio 8.2 RATIO (10-20); Calcium,Total 8.5 mg/dL (8.5-10.1); Chloride 103 mmol/L (98-107); Creatinine, Serum 0.61 mg/dL (0.55-1.02); EST Glomerular Filtration Rate 103 mL/min (>60); Est Glom Filt Rate - Afr Amer 125 mL/min (>60); Estimated Creatinine Clearance 70.39 ml/min; Glucose 181 mg/dL (74-106); Sodium Level 136 mmol/L (136-145)
[2023-09-13 08:41] LABS: International Normalized Ratio 2.7; Prothrombin Time (Protime)PT. 28.6 SECONDS (11.7-14.9)
--- NOTE | 2023-09-13 10:58 | PCM.DC.SUM ---
Providers Date of Admission: 09/10/23 Date of Discharge: 09/13/23 Primary Care Physician: Dr. Jose Miguel Pedraza DO Reason For Visit: ACUTE DIVERTICULITIS Diagnosis Discharge Diagnosis (1) Diverticulitis: Status: Acute Code(s): K57.92 - Diverticulitis of intestine, part unspecified, without perforation or abscess without bleeding Medications at Discharge Home Medications ambrisentan 10 mg tablet 10 mg PO DAILY 04/21/16 sildenafil 60 mg PO TID 07/24/21 albuterol sulfate 90 mcg/actuation aerosol inhaler 1 puff inhalation Q6H PRN bronchospasm #8.5 grams 08/28/21 blood sugar diagnostic #100 ea 10/09/21 lancets (OneTouch UltraSoft Lancets) #200 ea 10/09/21 tiotropium bromide 1.25 mcg/actuation mist for inhalation (Spiriva Respimat) 2 puff inhalation DAILY #4 grams 12/03/21 pravastatin 40 mg tablet 40 mg PO QHS #90 tabs 09/05/22 diltiazem HCl 360 mg tablet,extended release 24 hr (Matzim LA) 360 mg PO DAILY heart #90 tabs 04/30/23 Oxygen, Home [Home Oxygen] 6 l NASAL CONT 05/15/23 furosemide 40 mg tablet 40 mg PO BID #180 tabs 06/02/23 tolterodine 2 mg capsule,extended release 24 hr 2 mg PO DAILY #90 caps 06/02/23 alprazolam 0.5 mg tablet (Xanax) 0.5 mg PO BID PRN anxiety #60 tabs 07/22/23 omeprazole 40 mg capsule,delayed release 40 mg PO DAILY #90 caps 07/22/23 spironolactone 50 mg tablet 50 mg PO DAILY #90 tabs 07/28/23 potassium chloride 20 mEq tablet,extended release 20 meq PO TID #270 tabs 08/12/23 sertraline 100 mg tablet 100 mg PO DAILY #90 tabs 09/01/23 olanzapine 5 mg tablet 5 mg PO DAILY #90 tabs 09/08/23 budesonide-formoterol HFA 160 mcg-4.5 mcg/actuation aerosol inhaler 2 puff inhalation BID 09/10/23 metformin 500 mg tablet 1,000 mg PO QHS 09/10/23 nystatin 100,000 unit/gram topical cream 1 applic topical PRN 09/10/23 warfarin 3 mg tablet 1.5 mg PO DAILY 09/10/23 amoxicillin 875 mg-potassium clavulanate 125 mg tablet 1 tab PO Q8H 9 days #26 tabs 09/12/23 ondansetron 4 mg disintegrating tablet 4 mg PO Q8H PRN nausea and vomiting 4 days #12 tabs 09/13/23 Hospital Course Operations None Procedures EKG and - (Chest x-ray, CT abdomen pelvis with contrast) Summary of Care Provided Minutes Spent on Discharge: 35 Hospital Course: Patient is a 68-year-old female who presented [facility] ED on 09/10/2023 with acute on chronic dizziness/lightheadedness with nausea/vomiting/diarrhea and recent poor p.o. intake. Hospital course as noted below. Patient discharged home with no therapy needs in stable condition on 09/12. 1. Acute sigmoid diverticulitis with mild hematochezia CT abdomen pelvis on admit showed diverticulosis with thickening of sigmoid colon wall and pericolic inflammation changes consistent with acute diverticulitis. Leukocytosis present on admission, otherwise patient afebrile and hemodynamically stable. Leukocytosis improved and patient feeling much improved after IV fluid resuscitation. ? Treated with IV Zosyn while inpatient with good improvement, discharged on Augmentin 3 times daily to complete a 10-day course of antibiotics total. Tolerating regular diet well by 09/11. Did have 3-4 small bright red bowel movements on 09/11 and early 09/12, hemoglobin with mild drop from baseline ~12-13 down to 11.4 on discharge. Recommend repeat CBC in 5 to 7 days to ensure continued stability. 2. Acute on chronic lightheadedness/dizziness, improving ? Suspect acute dizziness was primarily due to dehydration in the setting of GI losses and recent poor p.o. intake. [place] moderately improved after IV fluid resuscitation. PT/OT/case management followed. Good therapy scores throughout hospitalization, stable for discharge home with no therapy needs. 3. Chronic hypoxic respiratory failure due to pulmonary hypertension and COPD ? Chronically on 4 L nasal cannula at rest and usually increases to 6 L with exertion. Chest x-ray on admit showed concern for possible left lower lobe pneumonia but patient with no respiratory symptoms and was stable on home amount of oxygen during admission. Regardless, was treated with IV Zosyn as above and discharged on Augmentin which would cover any pneumonia. Continue home inhalers and home pulmonary hypertension medications. 4. History of VTE with lupus anticoagulant disorder on warfarin with recent supratherapeutic INR On warfarin, goal INR 2.0-3.0. INR was 5.0 on recent outpatient check on 09/06. Was suspected this was due to either prolonged course of doxycycline plus or minus steroids for possible doxycycline induced vasculitis. Both doxycycline and prednisone were added to allergy list. INR 2.5 on admit here, stable at goal during hospitalization. Continue home warfarin dosing. Chronic medical conditions: ? Obesity: BMI 32 on admit. Complicated hospital course, care and prognosis. ? Anxiety/depression/panic disorder: Stable. Continue home sertraline, olanzapine, alprazolam twice daily as needed. ? Paroxysmal A-fib: Rate controlled A-fib on admission. Continue home diltiazem and warfarin. ? History of TIA: Continue home statin and warfarin. ? Type 2 diabetes mellitus: Home regimen of metformin 1000 mg at night. Last A1c in July was 6.5%. Continue sliding scale insulin with meals while inpatient. Okay to resume home regimen on discharge. ? Hypertension: Continue home spironolactone and Lasix. ? Hyperlipidemia: Continue home statin. ? GERD: Continue home PPI. ? Former tobacco use: Encouraged continued cessation. Total clinical time spent by myself addressing the patient's medical issues, reviewing all the data, and collaborating with patient's care team: 35 minutes. Physical Exam Const alert, oriented x3 and no apparent distress Constitutional Narrative: Pleasant elderly female, obese, sitting up comfortably in bed, conversing normally, in no acute distress. General Appearance: cooperative and comfortable HEENT normocephalic, head/scalp atraumatic, hearing grossly normal bilaterally, nasal mucous membranes and turbinates normal and moist oral mucous membranes Eyes PERRL, EOMs intact bilaterally and conjunctivae normal Neck full ROM Chest inspection of chest normal Resp normal respiratory effort and no use of accessory muscles Resp Narrative: Breathing comfortably on home 4 L nasal cannula at rest. Mildly decreased breath sounds bilaterally throughout. No wheezing or crackles noted. Cardio regular rate, regular rhythm, no murmurs and peripheral pulses 2+ throughout GI normal to inspection, nondistended, normoactive bowel sounds, soft to palpation, non-tender and non-distended Back/Spine normal ROM Extremity normal to inspection, full ROM and no pedal edema Skin no rashes or lesions noted Neuro moves all extremities and no focal motor deficits Speech: speech normal Psych mental status grossly normal Weight / BMI Weight Weight: 85.9 kg Body Mass Index (BMI) 32.5 ABG / Lab / Microbiology Data 09/13/23 08:07 09/13/23 08:07 Laboratory: Laboratory Results - last 24 hr 09/12/23 12:02: POC Glucose 211 H 09/12/23 16:32: POC Glucose 153 H 09/12/23 22:47: POC Glucose 227 H 09/13/23 07:04: POC Glucose 160 H 09/13/23 08:07: WBC 6.2, RBC 4.81, Hgb 11.6 L, Hct 38.1, MCV 79.2 L, MCH 24.1 L, MCHC 30.4 L, RDW Std Deviation 57.3 H, RDW Coeff of Brittany 19.7 H, Plt Count 128 L, MPV 9.3, PT 28.6 H, INR 2.7, Sodium 136, Potassium 4.0, Chloride 103, Carbon Dioxide 31.0, Anion Gap 2 L, BUN 5 L, Creatinine 0.61, Estim Creat Clear Calc 70.39, Est GFR (MDRD) Af Amer 125, Est GFR (MDRD) Non-Af 103, BUN/Creatinine Ratio 8.2 L, Glucose 181 H, Calcium 8.5 D/C Instructions Discharge Diet: No restrictions Meaningful Use Info Meaningful Use Meaningful Use Diagnoses (Choose all that apply): None applicable Ischemic Stroke Statin Dosing Therapy Reference: STATIN DOSE THERAPY REFERENCE: * Patients > 75 years receive moderate or high dose statin therapy. * Patients 75 years or YOUNGER should receive HIGH intensity statin dose unless contraindicated. You will be required to document reason for non-treatment if statin daily dose does not meet guidelines. HIGH DOSE STATIN THERAPY DAILY Atorvastatin > than or = to 40 mg Rosuvastatin > than or = to 20 mg Amlodipine + Atorvastatin > than or = to 2.5/40 mg Ezetimibe + Simvastatin 10/80 mg Simvastatin 80mg Discharge Plan Admission Admit Date/Time: 09/10/23 21:34 Primary Reason for Your Visit: dizziness, abdominal discomfort Attending Provider: Emeka Lowe Primary Care Provider: Jose Miguel Pedraza Consulting Providers: Alem Le Instructions Additional Instructions / Restrictions: Please take Augmentin 3 times daily for the next 7 days to complete a 10-day course of antibiotics total. Discharge Orders/Prescriptions Prescriptions: New amoxicillin-pot clavulanate 875-125 mg tablet 1 tab PO Q8H 9 Days Qty: 26 0RF ondansetron 4 mg tablet,disintegrating 4 mg PO Q8H PRN (Reason: nausea and vomiting) 4 Days Qty: 12 0RF Continued albuterol sulfate 90 mcg/actuation HFA aerosol inhaler 1 puff INHALATION Q6H PRN (Reason: bronchospasm) Qty: 8.5 3RF sertraline 100 mg tablet 100 mg PO DAILY Qty: 90 1RF diltiazem HCl [Matzim LA] 360 mg tablet extended release 24 hr 360 mg PO DAILY Qty: 90 2RF furosemide 40 mg tablet 40 mg PO BID Qty: 180 2RF tolterodine 2 mg capsule,extended release 24hr 2 mg PO DAILY Qty: 90 3RF ambrisentan 10 MG tablet 10 mg PO DAILY sildenafil 20 mg tablet 60 mg PO TID Oxygen, Home [Home Oxygen] 6 l NASAL CONT Rx Instructions: OF NOTE, PATIENT PRIOR OXYGEN SET-UP WITH 6L REST AND 6.5L ACTIVITY. During admission patient transitioned metformin 500 mg tablet 1,000 mg PO QHS warfarin 3 mg tablet 1.5 mg PO DAILY Protocol: Dose Management Condition: Thursday Dose/Route: 3 mg Instruction: 1 x 3 mg tablet Condition: Thursday Dose/Route: 3 mg Instruction: 1 x 3 mg tablet Condition: Thursday Dose/Route: 3 mg Instruction: 1 x 3 mg tablet Condition: Thursday Dose/Route: 3 mg Instruction: 1 x 3 mg tablet Condition: Dose/Route: 3 mg Instruction: 1 x 3 mg tablet Condition: Thursday Dose/Route: 3 mg Instruction: 1 x 3 mg tablet Condition: Thursday Dose/Route: 3 mg Instruction: 1 x 3 mg tablet Protocol Text: Adjustment Start Date: 05/22/22 INR Value: 4.3 INR Date: 05/21/22 Recheck Date: 05/28/22 Rx Instructions: 05/22/22 3 mg daily budesonide-formoterol 160-4.5 mcg/actuation HFA aerosol inhaler 2 puff INHALATION BID nystatin 100,000 unit/gram cream 1 applic topical PRN (DME) blood sugar diagnostic Strip See Rx Instructions .ROUTE .MEDSUPPLY Qty: 100 3RF Dose Instruction: As directed Rx Instructions: check blood sugar three times a day (DME) lancets [OneTouch UltraSoft Lancets] Misc See Rx Instructions .ROUTE .MEDSUPPLY Qty: 200 2RF Dose Instruction: As directed Rx Instructions: daily- check blood sugar three times a day Spiriva Respimat 1.25 mcg/actuation mist 2 puff inhalation DAILY Qty: 4 0RF pravastatin 40 mg tablet 40 mg PO QHS Qty: 90 3RF omeprazole 40 mg capsule,delayed release(DR/EC) 40 mg PO DAILY Qty: 90 3RF alprazolam [Xanax] 0.5 mg tablet 0.5 mg PO BID PRN (Reason: anxiety) Qty: 60 0RF spironolactone 50 mg tablet 50 mg PO DAILY Qty: 90 1RF potassium chloride 20 mEq tablet extended release 20 meq PO TID Qty: 270 0RF olanzapine 5 mg tablet 5 mg PO DAILY Qty: 90 1RF Referrals / Follow Up: Jose Miguel Pedraza DO [Primary Care Provider] - Disposition Disposition (needs filled in before D/C Order can be placed): Home, Self Care Charges/Coding Visit Charges Inpatient E&M: 91920 Disch Hosp >30min
== END 2023-09-13 12:14 | disposition home or self-care (01) ==
LOC: ED 21:37 → MS3 21:52
PROVIDERS: Admitting Provider Family Medicine; Emergency Provider Emergency Medicine; PCP Family Medicine; Visit Provider Hospitalist
DX: K57.93 Diverticulitis of intestine, part unspecified, without perforation or abscess with bleeding (principal); J96.11 Chronic respiratory failure with hypoxia; I27.0 Primary pulmonary hypertension; J44.9 Chronic obstructive pulmonary disease, unspecified; I48.0 Paroxysmal atrial fibrillation; E11.65 Type 2 diabetes mellitus with hyperglycemia; E78.5 Hyperlipidemia, unspecified; Z87.891 Personal history of nicotine dependence; Z79.01 Long term (current) use of 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; R32 Unspecified urinary incontinence; F41.9 Anxiety disorder, unspecified; E86.0 Dehydration; K21.9 Gastro-esophageal reflux disease without esophagitis; Z79.84 Long term (current) use of oral hypoglycemic drugs; Z99.81 Dependence on supplemental oxygen; Z79.899 Other long term (current) drug therapy; Z86.711 Personal history of pulmonary embolism; F40.01 Agoraphobia with panic disorder; F40.240 Claustrophobia; D68.62 Lupus anticoagulant syndrome; E66.9 Obesity, unspecified; Z68.32 Body mass index [BMI] 32.0-32.9, adult
CPT/HCPCS: 36415; 71045; 74177; 80048; 80053; 81001; 82962; 83605; 84484; 85025; 85027; 85610; 93005; 94640; 94668; 94762; 96361; 96365; 96366; 96367; 96368; 96375; 96376; 97116; 97162; 97166; 97530; 99221; 99284; J7030; J7050; Q9967; G0378; J0696; J2405

== ENCOUNTER 2023-10-09 16:23 | Outpatient (RCR) | payer MEDICARE, SELFPAY ==
[2023-08-10 00:28] VITALS: BMI 33.6
[2023-09-18 17:46] LABS: International Normalized Ratio 3.4; Prothrombin Time (Protime)PT. 33.9 SECONDS (11.7-14.9)
[2023-10-09 17:56] LABS: International Normalized Ratio 2.1; Prothrombin Time (Protime)PT. 23.6 SECONDS (11.7-14.9)
== END 2023-10-09 18:00 | disposition home or self-care (01) ==
LOC: MTLAB 16:23
PROVIDERS: Family Provider Family Medicine; PCP Family Medicine; Referring Provider Family Medicine; Visit Provider Family Medicine
DX: Z79.01 Long term (current) use of 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 (principal)
CPT/HCPCS: 36415; 85610

== ENCOUNTER 2023-12-11 16:20 | Outpatient (RCR) | payer MEDICARE, SELFPAY ==
[2023-10-12 08:21] VITALS: BMI 33.6
[2023-12-11 18:02] LABS: Prothrombin Time (Protime)PT. 22.5 SECONDS (11.7-14.9)
== END 2023-12-11 18:00 | disposition home or self-care (01) ==
LOC: MTLAB 16:20
PROVIDERS: Family Provider Family Medicine; PCP Family Medicine; Referring Provider Family Medicine; Visit Provider Family Medicine
DX: Z79.01 Long term (current) use of 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 (principal)
CPT/HCPCS: 36415; 85610

== ENCOUNTER 2024-02-24 15:26 | Outpatient (RCR) | payer MEDICARE, SELFPAY ==
[2024-01-09 21:03] VITALS: BMI 33.6
[2024-02-24 15:45] LABS: INR Fingerstick 1.5; Prothrombin Time Fingerstick 16.5 SEC (11.7-14.9)
== END 2024-02-24 18:00 | disposition home or self-care (01) ==
LOC: MTLAB 15:26
PROVIDERS: Family Provider Family Medicine; PCP Family Medicine; Referring Provider Family Medicine; Visit Provider Family Medicine
DX: Z79.01 Long term (current) use of 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 (principal)
CPT/HCPCS: 36416; 85610

== ENCOUNTER 2024-03-11 16:04 | Outpatient (RCR) | payer MEDICARE, SELFPAY ==
[2024-03-10 21:04] VITALS: BMI 33.6
[2024-03-11 16:16] LABS: INR Fingerstick 2.8; Prothrombin Time Fingerstick 28.4 SEC (11.7-14.9)
== END 2024-04-09 18:00 | disposition home or self-care (01) ==
LOC: MTLAB 16:04
PROVIDERS: Family Provider Family Medicine; PCP Family Medicine; Referring Provider Family Medicine; Visit Provider Family Medicine
DX: Z79.01 Long term (current) use of 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 (principal)
CPT/HCPCS: 36416; 85610

== ENCOUNTER 2024-03-22 14:17 | Inpatient (IN) | payer MEDICARE, SELFPAY ==
[2024-03-22] VITALS (13 sets, daily range): BP systolic 124–145; BP diastolic 50–66; PULSE 70–87; RESP 16–26; TEMP 36.2–36.7; O2SAT 94–95; BMI 32.1; BMI 32.4
--- NOTE | 2024-03-22 14:29 | EKG12_ITS ---
Test Reason : FALL/DIZZY Blood Pressure : */* mmHG Vent. Rate : 70 BPM Atrial Rate : 70 BPM P-R Int : 242 ms QRS Dur : 86 ms QT Int : 394 ms P-R-T Axes : 48 -42 68 degrees QTcB Int : 425 ms Sinus rhythm with 1st degree A-V block Left axis deviation Inferior infarct (cited on or before 20-Aug-2020) Abnormal ECG Confirmed by BRYAN MARTINEZ MD ([id number]), purchase request editor MARIA GUADALUPE HERNANDEZ ([id number]) on 03/23/2024 8:55:14 AM Referred By: UMESH Confirmed By: BRYAN MARTINEZ MD
--- NOTE | 2024-03-22 14:29 | EDS_ITS ---
HPI HPI - Fall History of Present Illness Chief Complaint: Fall Narrative Narrative: 69-year-old female past medical history of antiphospholipid syndrome, on warfarin, presents status post fall after becoming lightheaded and dizzy. She denies any recent fevers or chills, but feels she may be dehydrated. She was trying to check her mail, when she became very lightheaded and dizzy. No prodromal symptoms. She fell onto her right hip, and struck the right side of her head. No reported loss of consciousness. She was unable to stand afterwards. She complains of right hip pain and mild headache but no neck pain. She had called her daughter who arrived and she called EMS. Patient states she did not want to come to the emergency department alone. [facility] Medical History Diabetes On home oxygen therapy DVT (deep venous thrombosis) TIA (transient ischemic attack) Panic disorder with agoraphobia Osteoporosis Former smoker Pulmonary embolism Urinary tract infection Primary pulmonary hypertension (PPH) COPD (chronic obstructive pulmonary disease) Claustrophobia Anxiety Depression TIA (transient ischemic attack) Type 2 diabetes mellitus Atrial fibrillation Lupus anticoagulant disorder Pulmonary arterial hypertension Home Medications ?Medication ?Instructions ?Recorded ?Last Taken ?Type ambrisentan 10 mg tablet 10 mg PO DAILY 04/21/16 Unknown History sildenafil 60 mg PO TID 07/24/21 11/17/22 History albuterol sulfate 90 mcg/actuation 1 puff inhalation Q6H PRN 08/28/21 Unknown Rx aerosol inhaler bronchospasm #8.5 grams blood sugar diagnostic #100 ea 10/09/21 Unknown Rx lancets (OneTouch UltraSoft #200 ea 10/09/21 Unknown Rx Lancets) tiotropium bromide 1.25 2 puff inhalation DAILY #4 grams 12/03/21 Unknown Rx mcg/actuation mist for inhalation (Spiriva Respimat) Oxygen, Home [Home Oxygen] 6 l NASAL CONT 05/15/23 05/15/23 History tolterodine 2 mg capsule,extended 2 mg PO DAILY #90 caps 06/02/23 Unknown Rx release 24 hr omeprazole 40 mg capsule,delayed 40 mg PO DAILY #90 caps 07/22/23 Unknown Rx release spironolactone 50 mg tablet 50 mg PO DAILY #90 tabs 07/28/23 Unknown Rx budesonide-formoterol HFA 160 2 puff inhalation BID 09/10/23 Unknown History mcg-4.5 mcg/actuation aerosol inhaler nystatin 100,000 unit/gram topical 1 applic topical PRN 09/10/23 Unknown History cream metformin 500 mg tablet 500 mg PO BID #180 tabs 09/16/23 Unknown Rx pravastatin 40 mg tablet 40 mg PO QHS #90 tabs 09/16/23 Unknown Rx diltiazem HCl 360 mg 360 mg PO DAILY heart #90 tabs 11/20/23 Unknown Rx tablet,extended release 24 hr (Matzim [place]) handicap placard #1 ea 12/29/23 Unknown Rx famotidine 20 mg tablet 20 mg PO QDAY 12/31/23 Unknown History potassium chloride 20 mEq 20 meq PO TID #270 tabs 02/16/24 Unknown Rx tablet,extended release alprazolam 0.5 mg tablet (Xanax) 0.5 mg PO BID PRN anxiety #60 tabs 02/24/24 Unknown Rx sertraline 100 mg tablet 100 mg PO DAILY #90 tabs 03/02/24 Unknown Rx furosemide 40 mg tablet 40 mg PO BID #180 tabs 03/16/24 Unknown Rx warfarin 4 mg tablet 4 mg PO DAILY 03/22/24 03/21/24 History Allergy/AdvReac Type Severity Reaction Status Date / Time doxycycline AdvReac Intermediate Other Verified 03/22/24 14:18 prednisone AdvReac Mild Other Verified 03/22/24 14:18 nitroglycerin AdvReac Other Verified 03/22/24 14:18 Family History Mother COPD (chronic obstructive pulmonary disease) Cancer melanoma Father Heart disease Alcoholism Grandmother Cancer Grandfather Parkinsons disease Surgical History History of embolic filter insertion H/O endoscopy H/O colonoscopy History of placement of ear tubes history of bunion surgery History of tonsillectomy History of cholecystectomy Social History household members: none Smoking Status: Former smoker Tobacco: How many years used: 8 how long ago did patient quit smokin years alcohol intake: never substance use type: does not use what type of physical activity do you participate in: none ROS ROS ED ROS Narrative Constitutional: No fever, no chills. Feels dehydrated. HEENT: No sore throat. No neck pain. No loss of vision. No rhinorrhea. Cardiovascular: No chest pain. No palpitations. No pedal edema. Respiratory: No cough, no shortness of breath. Abdominal: No abdominal pain. No nausea. No vomiting. Genitourinary: No dysuria. No hematuria. Musculoskeletal: No myalgias. Positive right hip pain, worse with movement. Unable to stand. Neurologic: Mild right-sided headache. Positive lightheadedness and dizziness. Skin: No rash. No change in color. EXAM Physical Exam Narrative Exam Narrative: GCS 15. ABCs intact. Nontoxic. Head is normocephalic, mild tenderness to palpation right parietal occipital area. Neck soft and supple without vertebral point tenderness or bony step-off. Full range of motion without pain. PERRL, EOMI. Cardiovascular examination regular rate and rhythm. Lungs clear to auscultation bilaterally anteriorly. Mild tachypnea. Abdomen soft nontender w ith normal active bowel sounds. Neurological examination shows her to be awake, alert, oriented x 3. Limited range of motion right hip secondary to pain. Right lower extremity held in external rotation and mildly shortened. Positive tenderness to palpation diffusely right hip, no crepitance. Pelvis otherwise stable. Palpable dorsalis pedis pulses bilaterally. EHL intact bilaterally. Const Vital Signs: 03/22/24 14:18 03/22/24 14:22 03/22/24 15:58 Temperature 98 F 98.7 F Temperature Source Oral Pulse Rate 70 72 Respiratory Rate 24 H 14 Respiratory Effort Normal Respiratory Depth Shallow Respiratory Pattern Tachypnea Blood Pressure 129/53 H 135/54 H Blood Pressure Mean 78 81 Pulse Ox 94 97 Oxygen Delivery Method Nasal Cannula Nasal Cannula Oxygen Flow Rate (L/min) 2 2 MDM MDM MDM Narrative Medical decision making narrative: Given her fall, differential diagnosis includes but not limited to dehydration versus other electrolyte abnormality versus right hip fracture versus closed head injury versus intracranial hemorrhage. I have lower suspicion for intracranial hemorrhage as she has a normal neurological examination and no outward signs of trauma of the head. However, imaging of the head and C-spine will be obtained to rule out intracranial hemorrhage or fracture. X-rays will also be obtained of the right hip. I did obtain baseline laboratories and EKG as well. EKG obtained interpreted by myself independently as normal sinus rhythm at 70 bpm with first-degree AV block but no overt ectopy, no ST changes that are acute, no STEMI. QTc normal at 425 ms. I reviewed the radiology report of the CT of the brain which shows no evidence of any intracranial hemorrhage. I reviewed the radiology report of the CT of the cervical spine which shows no fracture, there are multilevel degenerative changes noted. My individual interpretation of the 3 views of the right hip and pelvis do show a right intertrochanteric fracture of the right hip. I reviewed the radiology report which confirms my independent interpretation. I reviewed her laboratory work, and she has normal white count of 5.8 with hemoglobin 12.3, hematocrit 42.7, INR is therapeutic at 3.3, BUN of 11 and creatinine 0.78, glucose elevated 252 but she has a normal anion gap of 7 so I doubt diabetic ketoacidosis. I will obtain a chest x-ray in 1 view for medical clearance, patient does have history of COPD although she quit smoking in her 20s. Patient will be discussed with Dr. Peraza with orthopaedics, then with the hospitalist for admission and medical clearance. Chest x-ray in 1 view interpreted by myself independently shows chronic changes, no pneumothorax, no pneumonia for which I feel antibiotics are indicated. I reviewed the radiology report which comments on asymmetric densities which I think are probably more chronic changes. I did discuss the patient with Dr. Peraza who is aware of the patient and her past medical history, who agrees with discussion with the hospitalist for admission. I discussed the patient with Dr. Lowe for admission to the general medical floor. History & Record Review Discussion w/independent historian: Patient and Family Lab Data Attestation: I reviewed the patient's lab results. Labs: Laboratory Results - last 24 hr 03/22/24 14:25 WBC 5.8 RBC 6.39 H Hgb 12.3 Hct 42.7 MCV 66.8 L MCH 19.2 L MCHC 28.8 L RDW Std Deviation 46.4 H RDW Coeff of Brittany 20.8 H Plt Count 175 PT 33.6 H INR 3.3 Sodium 137 Potassium 4.0 Chloride 103 Carbon Dioxide 27.0 Anion Gap 7 BUN 11 Creatinine 0.78 Estim Creat Clear Calc 68.98 Est GFR (MDRD) Af Amer 93 Est GFR (MDRD) Non-Af 77 BUN/Creatinine Ratio 14.0 Glucose 252 H Calcium 9.9 Total Bilirubin 0.60 AST 21 ALT 31 Alkaline Phosphatase 100 Total Protein 6.6 Albumin 3.7 Globulin 2.9 Albumin/Globulin Ratio 1.3 Radiography Diagnostic Testing: Clinical Impression(s) from Imaging Studies Brain CT 03/22/24 14:45 IMPRESSION: Chronic involutional changes of the brain. Pansinusitis. Electronically Signed: Lito Juarez MD at 15:04 EST , Cervical Spine CT 03/22/24 14:45 IMPRESSION: Multilevel degenerative changes, as described above. Electronically Signed: Lito Juarez MD at 15:02 EST , Hip/Pelvis X-Ray 03/22/24 14:50 IMPRESSION: Nondisplaced right intertrochanteric fracture. Electronically Signed: Lito Juarez MD at 15:05 EST , Chest X-Ray 03/22/24 15:25 IMPRESSION: Asymmetric interstitial densities in the lower lung zones, right more than left. HRCT chest will help clarify if interstitial pneumonitis is a clinical consideration. Electronically Signed: Owen Zamudio MD at 15:36 EST , Management Discussion w/another healthcare provider: Hospitalist and Supervisor Final Discharge Plan Dx/Rx/DC Orders Clinical Impression: Fall, Pulmonary arterial hypertension, COPD (chronic obstructive pulmonary disease), Hip fracture, right, Lupus anticoagulant disorder, half-way (current) use of 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 Disposition Disposition: Acute Care Hospital [facility] INR Value: 4.3 INR Date: 05/21/22 Recheck Date: 05/28/22 Rx Instructions: 05/22/22 3 mg daily ambrisentan 10 MG tablet 10 mg PO DAILY sildenafil 20 mg tablet 60 mg PO TID Oxygen, Home [Home Oxygen] 6 l NASAL CONT Rx Instructions: OF NOTE, PATIENT PRIOR OXYGEN SET-UP WITH 6L REST AND 6.5L ACTIVITY. During admission patient transitioned budesonide-formoterol 160-4.5 mcg/actuation HFA aerosol inhaler 2 puff INHALATION BID nystatin 100,000 unit/gram cream 1 applic topical PRN ondansetron 4 mg tablet,disintegrating 4 mg PO Q8H PRN (Reason: nausea and vomiting) 4 Days Qty: 12 0RF (DME) blood sugar diagnostic Strip See Rx Instructions .ROUTE .MEDSUPPLY Qty: 100 3RF Dose Instruction: As directed Rx Instructions: check blood sugar three times a day (DME) lancets [OneTouch UltraSoft Lancets] Misc See Rx Instructions .ROUTE .MEDSUPPLY Qty: 200 2RF Dose Instruction: As directed Rx Instructions: daily- check blood sugar three times a day Spiriva Respimat 1.25 mcg/actuation mist 2 puff inhalation DAILY Qty: 4 0RF omeprazole 40 mg capsule,delayed release(DR/EC) 40 mg PO DAILY Qty: 90 3RF spironolactone 50 mg tablet 50 mg PO DAILY Qty: 90 1RF metformin 500 mg tablet 500 mg PO BID Qty: 180 1RF pravastatin 40 mg tablet 40 mg PO QHS Qty: 90 3RF diltiazem HCl [Matzim [place]] 360 mg tablet extended release 24 hr 360 mg PO DAILY Qty: 90 1RF potassium chloride 20 mEq tablet extended release 20 meq PO TID Qty: 270 0RF sertraline 100 mg tablet 100 mg PO DAILY Qty: 90 1RF furosemide 40 mg tablet 40 mg PO BID Qty: 180 2RF Primary Care Provider: Jose Miguel Pedraza Referrals: Jose Miguel Pedraza, [Primary Care Provider] - Print Language: Algerian
[2024-03-22] MEDS: Morphine 4 MG/ML Syringe IV ×3 (14:39→22:47)
[2024-03-22] MEDS: Ondansetron 4 MG/2 ML Vial IV (14:39)
--- NOTE | 2024-03-22 14:45 | CT_ITS ---
STUDY: CT BRAIN WITHOUT CONTRAST REASON FOR EXAM: Female, 69 years old. Trauma, HIA RADIATION DOSAGE (If Supplied By Facility): CTDIvol = ( 44.99 ) mGy, DLP = ( 863.60 ) mGycm TECHNIQUE: Transaxial CT imaging of the brain was performed without administration of intravenous contrast material. Individualized dose optimization techniques were used for this CT. COMPARISON: Comparison is made with prior study dated April 01, 2021. FINDINGS: Normal soft tissue structures. Normal calvarium. There is mild cerebral atrophy with widening of the extra-axial spaces and ventricular dilatation. There are areas of decreased attenuation within the white matter tracts of the supratentorial brain, consistent with microvascular disease changes. Normal basal ganglia and thalami. Normal brainstem. There is mild cerebellar atrophy. There is no intracranial hemorrhage. There are no findings of an acute ischemic infarction. Opacification of both maxillary sinuses worse on the left side. Opacification of the ethmoid sinuses as well as the sphenoid sinus. Opacification of the left frontal sinus. CT/Brain/Head without Contrast IMPRESSION: Chronic involutional changes of the brain. Pansinusitis. Electronically Signed: Lito Juarez MD at 15:04 EST ,
--- NOTE | 2024-03-22 14:45 | CT_ITS ---
STUDY: CT CERVICAL SPINE WITHOUT CONTRAST REASON FOR EXAM: Female, 69 years old. Trauma RADIATION DOSAGE (If Supplied By Facility): CTDIvol = ( 26.09 ) mGy, DLP = ( 526.19 ) mGycm TECHNIQUE: High resolution transaxial imaging was performed without contrast material. Sagittal and coronal images were reconstructed. Individualized dose optimization techniques were used for this CT. COMPARISON: None FINDINGS: Normal craniovertebral junction. There are degenerative changes of the anterior atlantoaxial articulation. Normal odontoid process. There is reversal of the normal cervical lordosis. Multilevel facet joint osteoarthritis. C2-3: Facet joint osteoarthritis and hypertrophy causing bilateral neural foraminal stenosis. C3-4: Facet joint osteoarthritis and hypertrophy worse on the right side. Bilateral neural foraminal stenosis. C4-5: Facet joint osteoarthritis and hypertrophy with bilateral neural foraminal stenosis. C5-6: Marked degree of disc space narrowing and spondylosis. Uncovertebral arthrosis. Moderate degree of bilateral neural foraminal stenosis. C6-7: Marked degree of disc space narrowing. Uncovertebral arthrosis and bilateral neural foraminal stenosis. C7-T1: Normal endplates. Normal disc height and morphology. Normal central canal and intervertebral neuroforamina. Atherosclerotic plaque formation of the carotid bifurcations. CT/Spine Cervical without Contras IMPRESSION: Multilevel degenerative changes, as described above. Electronically Signed: Lito Juarez MD at 15:02 EST ,
[2024-03-22 14:49] LABS: Hematocrit 42.7 % (37-47); Hemoglobin 12.3 g/dL (12.0-15.0); Mean Corp Hgb Conc 28.8 g/dL (32-36); Mean Corpuscular Hgb 19.2 pg (27.0-32.0); Mean Corpuscular Volume 66.8 fL (81-99); POSITIVE MORPHOLOGY YES; Platelet Count 175 K/mm3 (150-450); RBC Distribution Width CV 20.8 % (11.6-14.6); RBC Distribution Width SD 46.4 fl (35.1-43.9); Red Blood Count 6.39 M/mm3 (4.2-5.4); White Blood Count 5.8 K/mm3 (4.4-11.0)
--- NOTE | 2024-03-22 14:50 | RAD_ITS ---
STUDY: X-RAY - PELVIS AND RIGHT HIP REASON FOR EXAM: Female, 69 years old. Trauma, Pain TECHNIQUE: 3 views of the pelvis and hip. COMPARISON: None. FINDINGS: There is a non-specific bowel gas pattern. There are multiple calcified phleboliths. Normal bilateral iliac wings, sacroiliac joints and visualized sacrum. Normal bilateral superior and inferior pubic rami. There are degenerative changes of the pubic symphysis with articular narrowing and sclerosis. Normal bilateral ischial tuberosities. Nondisplaced right intertrochanteric fracture. RAD/HIP, UNI W/ Pelvis 2-3 Views IMPRESSION: Nondisplaced right intertrochanteric fracture. Electronically Signed: Lito Juarez MD at 15:05 EST ,
[2024-03-22 14:51] LABS: International Normalized Ratio 3.3; Prothrombin Time (Protime)PT. 33.6 SECONDS (11.7-14.9); Scan Indicated on CBC? Y/N YES- FLAGS NOTED
[2024-03-22 15:04] LABS: ALB/GLOB Ratio 1.3 RATIO (0.9-2.4); AST(SGOT) 21 U/L (15-37); Alanine Aminotransfer ALT/SGPT 31 U/L (13-56); Albumin, Serum 3.7 g/dL (3.2-5.0); Alkaline Phosphatase 100 U/L (45-117); Anion Gap 7 (5-15); BUN 11 mg/dL (7-18); Calcium,Total 9.9 mg/dL (8.5-10.1); Chloride 103 mmol/L (98-107); Creatinine, Serum 0.78 mg/dL (0.55-1.02); EST Glomerular Filtration Rate 77 mL/min (>60); Est Glom Filt Rate - Afr Amer 93 mL/min (>60); Estimated Creatinine Clearance 68.98 ml/min; Globulin 2.9 g/dL (2.2-4.2); Glucose 252 mg/dL (74-106); Protein, Total 6.6 g/dL (6.4-8.2); Sodium Level 137 mmol/L (136-145)
--- NOTE | 2024-03-22 15:25 | RAD_ITS ---
EXAM: XR CHEST, 1 VIEW CLINICAL INDICATION: COPD TECHNIQUE: Frontal view of the chest. COMPARISON: 09/10/2023. FINDINGS: LUNGS AND PLEURAL SPACES: Asymmetric interstitial densities in the lower lung zones, right more than left. HRCT chest will help clarify if interstitial pneumonitis is a clinical consideration. No pneumothorax. No effusion. HEART: Unremarkable. Cardiac silhouette not enlarged. MEDIASTINUM: Central airways and mediastinal contour are unremarkable. BONES/JOINTS: Unremarkable. No acute fracture. SOFT TISSUES: Unremarkable. RAD/Chest 1 View (Portable) IMPRESSION: Asymmetric interstitial densities in the lower lung zones, right more than left. HRCT chest will help clarify if interstitial pneumonitis is a clinical consideration. Electronically Signed: Owen Zamudio MD at 15:36 EST ,
--- NOTE | 2024-03-22 16:05 | PCM.HP.STD ---
HPI - General HPI Narrative AGUSTINA LUGO, is a 69 F who presents [facility] Medical History Diabetes On home oxygen therapy DVT (deep venous thrombosis) TIA (transient ischemic attack) Panic disorder with agoraphobia Osteoporosis Former smoker Pulmonary embolism Urinary tract infection Primary pulmonary hypertension (PPH) COPD (chronic obstructive pulmonary disease) Claustrophobia Anxiety Depression TIA (transient ischemic attack) Type 2 diabetes mellitus Atrial fibrillation Lupus anticoagulant disorder Pulmonary arterial hypertension Home Medications ?Medication ?Instructions ?Recorded ?Last Taken ?Type ambrisentan 10 mg tablet 10 mg PO DAILY 04/21/16 Unknown History sildenafil 60 mg PO TID 07/24/21 11/17/22 History albuterol sulfate 90 mcg/actuation 1 puff inhalation Q6H PRN 08/28/21 Unknown Rx aerosol inhaler bronchospasm #8.5 grams blood sugar diagnostic #100 ea 10/09/21 Unknown Rx lancets (OneTouch UltraSoft #200 ea 10/09/21 Unknown Rx Lancets) tiotropium bromide 1.25 2 puff inhalation DAILY #4 grams 12/03/21 Unknown Rx mcg/actuation mist for inhalation (Spiriva Respimat) Oxygen, Home [Home Oxygen] 6 l NASAL CONT 05/15/23 05/15/23 History tolterodine 2 mg capsule,extended 2 mg PO DAILY #90 caps 06/02/23 Unknown Rx release 24 hr omeprazole 40 mg capsule,delayed 40 mg PO DAILY #90 caps 07/22/23 Unknown Rx release spironolactone 50 mg tablet 50 mg PO DAILY #90 tabs 07/28/23 Unknown Rx budesonide-formoterol HFA 160 2 puff inhalation BID 09/10/23 Unknown History mcg-4.5 mcg/actuation aerosol inhaler nystatin 100,000 unit/gram topical 1 applic topical PRN 09/10/23 Unknown History cream metformin 500 mg tablet 500 mg PO BID #180 tabs 09/16/23 Unknown Rx pravastatin 40 mg tablet 40 mg PO QHS #90 tabs 09/16/23 Unknown Rx diltiazem HCl 360 mg 360 mg PO DAILY heart #90 tabs 11/20/23 Unknown Rx tablet,extended release 24 hr (Matzim [place]) handicap placard #1 ea 12/29/23 Unknown Rx famotidine 20 mg tablet 20 mg PO QDAY 12/31/23 Unknown History potassium chloride 20 mEq 20 meq PO TID #270 tabs 02/16/24 Unknown Rx tablet,extended release alprazolam 0.5 mg tablet (Xanax) 0.5 mg PO BID PRN anxiety #60 tabs 02/24/24 Unknown Rx sertraline 100 mg tablet 100 mg PO DAILY #90 tabs 03/02/24 Unknown Rx furosemide 40 mg tablet 40 mg PO BID #180 tabs 03/16/24 Unknown Rx warfarin 4 mg tablet 4 mg PO DAILY 03/22/24 03/21/24 History Allergy/AdvReac Type Severity Reaction Status Date / Time doxycycline AdvReac Intermediate Other Verified 03/22/24 14:18 prednisone AdvReac Mild Other Verified 03/22/24 14:18 nitroglycerin AdvReac Other Verified 03/22/24 14:18 Family History Mother COPD (chronic obstructive pulmonary disease) Cancer melanoma Father Heart disease Alcoholism Grandmother Cancer Grandfather Parkinsons disease Surgical History History of embolic filter insertion H/O endoscopy H/O colonoscopy History of placement of ear tubes history of bunion surgery History of tonsillectomy History of cholecystectomy Social History household members: none Smoking Status: Former smoker Tobacco: How many years used: 8 how long ago did patient quit smokin years alcohol intake: never substance use type: does not use what type of physical activity do you participate in: none Vital Signs Vital Signs Vital Signs: 03/22/24 14:18 03/22/24 14:22 03/22/24 15:58 Temperature 98 F 98.7 F Temperature Source Oral Pulse Rate 70 72 Respiratory Rate 24 H 14 Respiratory Effort Normal Respiratory Depth Shallow Respiratory Pattern Tachypnea Blood Pressure 129/53 H 135/54 H Blood Pressure Mean 78 81 Pulse Ox 94 97 Oxygen Delivery Method Nasal Cannula Nasal Cannula Oxygen Flow Rate (L/min) 2 2 Weight Weight: 84.9 kg Body Mass Index (BMI) 32.1 Results Lab / Micro Data 03/22/24 14:25 03/22/24 14:25 Labs: Laboratory Results - last 24 hr 03/22/24 14:25: WBC 5.8, RBC 6.39 H, Hgb 12.3, Hct 42.7, MCV 66.8 L, MCH 19.2 L, MCHC 28.8 L, RDW Std Deviation 46.4 H, RDW Coeff of Brittany 20.8 H, Plt Count 175, PT 33.6 H, INR 3.3, Sodium 137, Potassium 4.0, Chloride 103, Carbon Dioxide 27.0, Anion Gap 7, BUN 11, Creatinine 0.78, Estim Creat Clear Calc 68.98, Est GFR (MDRD) Af Amer 93, Est GFR (MDRD) Non-Af 77, BUN/Creatinine Ratio 14.0, Glucose 252 H, Calcium 9.9, Total Bilirubin 0.60, AST 21, ALT 31, Alkaline Phosphatase 100, Total Protein 6.6, Albumin 3.7, Globulin 2.9, Albumin/Globulin Ratio 1.3 Imaging Radiology Impression Brain CT 03/22/24 14:45 IMPRESSION: Chronic involutional changes of the brain. Pansinusitis. Electronically Signed: Lito Juarez MD at 15:04 EST , Cervical Spine CT 03/22/24 14:45 IMPRESSION: Multilevel degenerative changes, as described above. Electronically Signed: iLto Juarez MD at 15:02 EST , Hip/Pelvis X-Ray 03/22/24 14:50 IMPRESSION: Nondisplaced right intertrochanteric fracture. Electronically Signed: Lito Juarez MD at 15:05 EST , Chest X-Ray 03/22/24 15:25 IMPRESSION: Asymmetric interstitial densities in the lower lung zones, right more than left. HRCT chest will help clarify if interstitial pneumonitis is a clinical consideration. Electronically Signed: Owen Zamudio MD at 15:36 EST ,
[2024-03-22] MEDS: fentaNYL 100 MCG/2 ML Ampul 50 MCG IV ×2 (17:39→19:18)
--- NOTE | 2024-03-22 19:22 | ED.RN ---
Per MD pd ok to take home meds of Sildenafil 60mg and Furosemide 40mg.
--- NOTE | 2024-03-22 20:48 | ED.RN ---
This product assurance engineer called [facility] for status update. [facility] said pt would not have a bed available until atleast late AM 03/23/24.
--- NOTE | 2024-03-22 21:27 | HP.PCM.HOS_ITS ---
HPI - General General Date of Admission: 03/22/24 Date of Service: 03/22/24 Chief Complaint: Fall, R Hip pain. HPI Narrative The patient is a 69 y/o F w/ PMHx: HTN, GERD, Diabetes mellitus type II, Chronic COPD/Pulmonary HTN w/ Chronic Hypoxic Respiratory Failure following with [facility] given severity, Hx VTE (DVT, PE) w/ Antiphospholipid/Lupus syndrome on coumadin, Anxiety and Depression/Claustrophobia/Panic disorder/Agoraphobia, Former tobacco use, Hx TIA who presents to the [facility] ED on 03/22/24 with history of mechanical fall after she was lightheaded and dizzy with no recent illness but states she had recently had decreased intake and was potentially dehydrated specifically having been checking her mail when this happened falling onto her right hip and striking the right side of her head with no loss of consciousness but unfortunately intractable right hip pain following an inability to stand with also a mild headache prompting call to her daughter with then called EMS and transition to the ED for evaluation. Patient notes that the right hip discomfort currently has abated but will intermittently come back and reports it is sharp shooting pain that she rates 7-8 out of 10 in severity. Workup in the ED included T98, heart rate 70, BP 129/53, respiratory rate 24, 94% on 2 L nasal cannula with most recent repeat vitals heart rate 87, BP 145/58, respiratory rate 21, 95% on 4 L nasal cannula, CBC with WBC 5.8, human 12.3, MCV 66.8, platelet 175 without differential, INR 3.3, CMP not marked appearing aside glucose 252, CT of the brain with chronic involutional changes, pansinusitis, CT cervical spine with multilevel degenerative changes with no acute findings, chest x-ray with asymmetrical interstitial densities in the lower lung zones right more than left with unclear baseline with significant pulmonary disease is noted, plain film of the right hip and pelvis with evidence of a nondisplaced right intertrochanteric fracture, EKG with sinus rhythm with first-degree AV block with no acute evidence of ischemia. Given significant underlying pulmonary history per discussion with hospitalist medicine and orthopedic surgery patient considered significantly elevated risk for anesthesia at [facility] and therefore transfer recommended and as patient is following with pulmonary medicine/pulmonary hypertensive clinic at [facility] this facility was chosen. Unfortunately currently there were reportedly no beds therefore pending bed availability patient brought in per ED request until tertiary facility bed made available. Dr. Richards Orthopedic surgery accepted patient. Did discuss with patient and family unfortunately [facility] can take several days for transfer and they understand this is a possible timeline outcome. [facility] Medical History Diabetes On home oxygen therapy DVT (deep venous thrombosis) TIA (transient ischemic attack) Panic disorder with agoraphobia Osteoporosis Former smoker Pulmonary embolism Urinary tract infection Primary pulmonary hypertension (PPH) COPD (chronic obstructive pulmonary disease) Claustrophobia Anxiety Depression TIA (transient ischemic attack) Type 2 diabetes mellitus Atrial fibrillation Lupus anticoagulant disorder Pulmonary arterial hypertension Home Medications ?Medication ?Instructions ?Recorded ?Last Taken ?Type ambrisentan 10 mg tablet 10 mg PO DAILY 04/21/16 Unknown History sildenafil 60 mg PO TID 07/24/21 11/17/22 History albuterol sulfate 90 mcg/actuation 1 puff inhalation Q6H PRN 08/28/21 Unknown Rx aerosol inhaler bronchospasm #8.5 grams blood sugar diagnostic #100 ea 10/09/21 Unknown Rx lancets (OneTouch UltraSoft #200 ea 10/09/21 Unknown Rx Lancets) tiotropium bromide 1.25 2 puff inhalation DAILY #4 grams 12/03/21 Unknown Rx mcg/actuation mist for inhalation (Spiriva Respimat) Oxygen, Home [Home Oxygen] 6 l NASAL CONT 05/15/23 05/15/23 History tolterodine 2 mg capsule,extended 2 mg PO DAILY #90 caps 06/02/23 Unknown Rx release 24 hr omeprazole 40 mg capsule,delayed 40 mg PO DAILY #90 caps 07/22/23 Unknown Rx release spironolactone 50 mg tablet 50 mg PO DAILY #90 tabs 07/28/23 Unknown Rx budesonide-formoterol HFA 160 2 puff inhalation BID 09/10/23 Unknown History mcg-4.5 mcg/actuation aerosol inhaler nystatin 100,000 unit/gram topical 1 applic topical PRN 09/10/23 Unknown History cream metformin 500 mg tablet 500 mg PO BID #180 tabs 09/16/23 Unknown Rx pravastatin 40 mg tablet 40 mg PO QHS #90 tabs 09/16/23 Unknown Rx diltiazem HCl 360 mg 360 mg PO DAILY heart #90 tabs 11/20/23 Unknown Rx tablet,extended release 24 hr (Matzim [place]) handicap placard #1 ea 12/29/23 Unknown Rx famotidine 20 mg tablet 20 mg PO QDAY 12/31/23 Unknown History potassium chloride 20 mEq 20 meq PO TID #270 tabs 02/16/24 Unknown Rx tablet,extended release alprazolam 0.5 mg tablet (Xanax) 0.5 mg PO BID PRN anxiety #60 tabs 02/24/24 Unknown Rx sertraline 100 mg tablet 100 mg PO DAILY #90 tabs 03/02/24 Unknown Rx furosemide 40 mg tablet 40 mg PO BID #180 tabs 03/16/24 Unknown Rx warfarin 4 mg tablet 4 mg PO DAILY 03/22/24 03/21/24 History Allergy/AdvReac Type Severity Reaction Status Date / Time doxycycline AdvReac Intermediate Other Verified 03/22/24 14:18 prednisone AdvReac Mild Other Verified 03/22/24 14:18 nitroglycerin AdvReac Other Verified 03/22/24 14:18 Family History Mother COPD (chronic obstructive pulmonary disease) Cancer melanoma Father Heart disease Alcoholism Grandmother Cancer Grandfather Parkinsons disease Surgical History History of embolic filter insertion H/O endoscopy H/O colonoscopy History of placement of ear tubes history of bunion surgery History of tonsillectomy History of cholecystectomy Social History household members: none Smoking Status: Former smoker Tobacco: How many years used: 8 how long ago did patient quit smokin years alcohol intake: never substance use type: does not use what type of physical activity do you participate in: none ROS ROS Narrative Admission Review of Systems: CONSTITUTIONAL: No weight loss, fever, chills, + weakness or fatigue. HEENT: Eyes: No visual loss, blurred vision, double vision or yellow sclerae. Ears, Nose, Throat: No hearing loss, sneezing, congestion, runny nose or sore throat. SKIN: No rash or itching, lesions, wounds. CARDIOVASCULAR: + Lightheadedness, dizziness. No chest pain, chest pressure or chest discomfort, palpitations, edema, orthopnea, syncopal events. RESPIRATORY: + Chronic dyspnea, occasional cough, occasional wheezing. No marked sputum production, no hemoptysis. GASTROINTESTINAL: + Nausea. No anorexia, vomiting or diarrhea, abdominal pain, melena, BRBPR. GENITOURINARY: No dysuria, frequency, urgency or retention. NEUROLOGICAL: + Lightheadedness, dizziness. No headache, syncope, paralysis, ataxia, numbness or tingling in the extremities, focal weakness, change in bowel or bladder control, seizure. MUSCULOSKELETAL: + muscle, back pain, joint pain or stiffness. HEMATOLOGIC: No anemia. + Easy bleeding/bruising. LYMPHATICS: No enlarged nodes. No history of splenectomy. PSYCHIATRIC: Hx Anxiety and Depression/Claustrophobia/Panic disorder/Agoraphobia. ENDOCRINOLOGIC: No reports of sweating, cold or heat intolerance. No polyuria or polydipsia. ALLERGIES: No history of asthma, hives, eczema or rhinitis. Vital Signs Vital Signs Vital Signs: 03/22/24 14:18 03/22/24 14:22 03/22/24 16:21 Temperature 98 F Temperature Source Oral Pulse Rate 70 75 Respiratory Rate 24 H Respiratory Effort Normal Respiratory Depth Shallow Respiratory Pattern Tachypnea Blood Pressure 129/53 H Blood Pressure Mean 78 Pulse Ox 94 Oxygen Delivery Method Nasal Cannula Nasal Cannula Oxygen Flow Rate (L/min) 2 2 03/22/24 16:30 03/22/24 16:45 03/22/24 16:54 Temperature Temperature Source Pulse Rate 73 76 Respiratory Rate Respiratory Effort Respiratory Depth Respiratory Pattern Blood Pressure 129/50 H 131/53 H Blood Pressure Mean 74 76 Pulse Ox Oxygen Delivery Method Oxygen Flow Rate (L/min) 03/22/24 17:00 03/22/24 17:15 03/22/24 17:30 Temperature Temperature Source Pulse Rate 76 74 77 Respiratory Rate 25 H 16 26 H Respiratory Effort Respiratory Depth Respiratory Pattern Blood Pressure 124/56 H 126/54 H 132/54 H Blood Pressure Mean 75 75 76 Pulse Ox Oxygen Delivery Method Oxygen Flow Rate (L/min) 03/22/24 17:45 03/22/24 18:00 03/22/24 20:00 Temperature Temperature Source Pulse Rate 79 80 87 Respiratory Rate 23 H 25 H 21 H Respiratory Effort Respiratory Depth Respiratory Pattern Blood Pressure 132/53 H 138/60 H 145/58 H Blood Pressure Mean 76 78 87 Pulse Ox 95 Oxygen Delivery Method Simple Mask Oxygen Flow Rate (L/min) 4 Weight Weight: 187 lb 2.759 oz Body Mass Index (BMI) 32.1 Physical Exam Narrative Physical Examination: General: Awake, alert, oriented x 3 and cooperative, laying in the ED bed, notes no current right hip pain. Skin: Normal color, normal turgor, no icterus, no cyanosis except for occasional very stage ecchymoses, abrasion especially with recent fall. HEENT: AT/NC, EOMI, PERRLA, mildly dry MM, no carotid bruits or JVD noted, notable hirsutism. Lungs: CTA bilaterally, moderate effort, mild decrease BL bases, no rales, ronchi or wheezing. Heart: Regular rate and rhythm; no gallop, rub audible. Abdomen: Soft, obese, NTTP, ND, normal BS, no appreciated HSM. Extremities: No cyanosis, no clubbing, bilateral ankle not markedly pitting edema, right lower extremity externally rotated, peripheral pulses intact. Neurological: Patient awake, alert, oriented as noted cognitive function intact; pupils equally reactive to light and accommodation, cranial nerves gross normal, moving all 4 extremities except expected right lower extremity limitation given fall with right hip fracture, strength accordingly severely globally decreased. Psychiatric: Affect appears fatigued otherwise normal, no acute evidence of depressive or anxiety feelings but does have underlying history. Results Lab / Micro Data 03/22/24 14:25 03/22/24 14:25 Labs: Laboratory Results - last 24 hr 03/22/24 14:25: WBC 5.8, RBC 6.39 H, Hgb 12.3, Hct 42.7, MCV 66.8 L, MCH 19.2 L, MCHC 28.8 L, RDW Std Deviation 46.4 H, RDW Coeff of Brittany 20.8 H, Plt Count 175, P T 33.6 H, INR 3.3, Sodium 137, Potassium 4.0, Chloride 103, Carbon Dioxide 27.0, Anion Gap 7, BUN 11, Creatinine 0.78, Estim Creat Clear Calc 68.98, Est GFR (MDRD) Af Amer 93, Est GFR (MDRD) Non-Af 77, BUN/Creatinine Ratio 14.0, Glucose 252 H, Calcium 9.9, Total Bilirubin 0.60, AST 21, ALT 31, Alkaline Phosphatase 100, Total Protein 6.6, Albumin 3.7, Globulin 2.9, Albumin/Globulin Ratio 1.3 Imaging Radiology Impression Brain CT 03/22/24 14:45 IMPRESSION: Chronic involutional changes of the brain. Pansinusitis. Electronically Signed: Lito Juarez MD at 15:04 EST , Cervical Spine CT 03/22/24 14:45 IMPRESSION: Multilevel degenerative changes, as described above. Electronically Signed: Lito Juarez MD at 15:02 EST , Hip/Pelvis X-Ray 03/22/24 14:50 IMPRESSION: Nondisplaced right intertrochanteric fracture. Electronically Signed: Lito Juarez MD at 15:05 EST , Chest X-Ray 03/22/24 15:25 IMPRESSION: Asymmetric interstitial densities in the lower lung zones, right more than left. HRCT chest will help clarify if interstitial pneumonitis is a clinical consideration. Electronically Signed: Owen Zamudio MD at 15:36 EST , Assessment & Plan Assessment/Plan (1) Fall: (2) Hip fracture, right: PLAN: Plan The patient is a 69 y/o F w/ PMHx: HTN, GERD, Diabetes mellitus type II, Chronic COPD/Pulmonary HTN w/ Chronic Hypoxic Respiratory Failure following with [facility] given severity, Hx VTE (DVT, PE) w/ Antiphospholipid/Lupus syndrome on coumadin, Anxiety and Depression/Claustrophobia/Panic disorder/Agoraphobia, Former tobacco use, Hx TIA who presents to the [facility] ED on 03/22/24 with history of mechanical fall after she was lightheaded and dizzy with no recent illness but states she had recently had decreased intake and was potentially dehydrated specifically having been checking her mail when this happened falling onto her right hip and striking the right side of her head with no loss of consciousness but unfortunately intractable right hip pain following an inability to stand with also a mild headache prompting call to her daughter with then called EMS and transition to the ED for evaluation. #1. General debility, mechanical fall with persistent/intractable right hip pain s/p mechanical fall w/ nondisplaced right intertrochanteric fracture: Case was discussed with orthopedic surgery and hospitalist physician and unfortunately per discussion with anesthesia patient was considered too high risk for surgery at [place] therefore pending tertiary facility transfer where patient has been accepted but unfortunately there is no bed available in the interim will admit to [facility], hackett placement, monitor I/Os, frequent positioning, fall precautions, as needed pain, anti-emetic regimen. Will obtain trop x 1 to be cautious given history complaints. CM consulted for discharge planning as awaiting tertiary facility transfer. Will defer consulting Orthopedic surgery given planned transfer to tertiary facility; however, this may need to be reconsidered if timeline becomes to lengthy. #2. Chronic COPD/Pulmonary HTN w/ Chronic Hypoxic Respiratory Failure (3-6L NC per charting): Patient following with [facility] given severity, unfortunately patient Ambrisentan is not on formulary, if able to bring from home until transferred to tertiary facility will perform this, continue sildenafil, will hold home inhalers in the interim transition to ATC budesonide therapy, as needed albuterol, continue chronic home oxygen supplementation. #3. Hx VTE (DVT, PE) w/ Antiphospholipid/Lupus syndrome: Patient with history of previous history VTE as noted, s/p IVF placement, will hold Coumadin, presentation INR 3.3, once appropriate would add heparin drip in preparation for surgery, continue to trend INR. #4. Anxiety and Depression/Claustrophobia/Panic disorder/Agoraphobia: We will continue patient home alprazolam as well as sertraline regimen, given significant presentation requiring inpatient especially with agoraphobia low threshold to judiciously use as needed Ativan. #5. History TIA: As noted holding Coumadin, transition to heparin drip once INR appropriate, continue INR trending, continue hypertensive regimen, not on statin therapy per current list with no specific allergy noted, but uncertain. #6. Hypertension: Continue home regimen including spironolactone, Lasix, diltiazem, PRN hydralazine. #7. Diabetes mellitus type II: Hold oral home regimen, ADA diet, accu checks w/ ISS. #8. GERD: We will continue patient on famotidine regimen. #9. Former tobacco use: Encourage continued tobacco cessation. #10. DVT: Will hold Coumadin and placed on heparin drip once INR appropriate, continue to trend INR. #11. CODE status: Patient YULIET is her daughter who is present and living will is currently in place. Discussed CODE status at length including difference between FULL code, DNR-CCA and DNR-CC status. Following discussions about the differences in these status, requested DNR-CCA, no intubation status. Advanced Care Planning Face to Face Time: 16 minutes. Charges/Coding Visit Charges Inpatient E&M: 59220 Init Hosp L3 Procedures Hospitalists Procedures: 39477 Advncd Care Plan 30 Min
[2024-03-22 21:54] LABS: Magnesium 2.2 mg/dL (1.6-2.6)
[2024-03-22] MEDS: 0.9% Saline Lock 10 ML Syringe IV (22:42)
[2024-03-22] MEDS: 0.9% Normal Saline (1000mL) 1,000 ML 100 ML IV (22:47)
[2024-03-22] MEDS: Pravastatin 40 MG Tablet PO (23:26)
[2024-03-22] MEDS: Potassium Chloride Oral Tablet 20 MEQ PO (23:26)
[2024-03-22] MEDS: SILDENAFIL CITRATE 20 MG TABLET 60 MG PO (23:26)
[2024-03-22] MEDS: oxyCODONE 5 MG Tablet PO (23:30)
[2024-03-22] MEDS: Insulin Lispro 100 UNIT/ML INSULN.PEN SC (23:37)
[2024-03-22 23:57] LABS: Bedside Glucose 185 mg/dL (74-106)
[2024-03-23] VITALS (10 sets, daily range): BP systolic 136–165; BP diastolic 57–89; PULSE 78–104; RESP 16–20; TEMP 36.6–37.3; O2SAT 92–94; BMI 33.7
[2024-03-23 00:01] LABS: Troponin-I HS 4 pg/mL (3.0-54.0)
[2024-03-23 01:52] LABS: Troponin-I HS 4 pg/mL (3.0-54.0)
[2024-03-23] MEDS: SILDENAFIL CITRATE 20 MG TABLET 60 MG PO ×3 (05:16→21:06)
[2024-03-23] MEDS: oxyCODONE 5 MG Tablet PO ×3 (05:17→19:55)
[2024-03-23] MEDS: Insulin Lispro 100 UNIT/ML INSULN.PEN SC ×4 (06:21→21:06)
[2024-03-23 06:27] LABS: Absolute Lymphocyte Count 0.82 X10^3/uL (0.83-4.51); Absolute Neutrophil Count 5.8 X10^3/uL (2.0-7.7); Basophil# 0.01 X10^3/uL; Basophil% 0.1 % (0-1); Eosinophil# 0.12 X10^3/uL; Eosinophils% 1.6 % (0-5); Hematocrit 38.9 % (37-47); Hemoglobin 10.9 g/dL (12.0-15.0); Lymphocyte # 0.82 X10^3/ul (0.83-4.51); Lymphocyte % 10.7 % (19-41); Mean Corpuscular Hgb 19.2 pg (27.0-32.0); Mean Corpuscular Volume 68.4 fL (81-99); Monocyte# 0.91 X10^3/uL; Monocyte% 11.9 % (0-10); NRBC Flagged by Analyzer 0 % (0-5); Neutrophil # 5.77 X10^3/uL (2.7-7.7); Neutrophil % 75.3 % (47-70); POSITIVE MORPHOLOGY YES; RBC Distribution Width CV 20.6 % (11.6-14.6); RBC Distribution Width SD 48.2 fl (35.1-43.9); Red Blood Count 5.69 M/mm3 (4.2-5.4); White Blood Count 7.7 K/mm3 (4.4-11.0)
[2024-03-23 06:34] LABS: International Normalized Ratio 2.8; Prothrombin Time (Protime)PT. 29.6 SECONDS (11.7-14.9)
[2024-03-23 06:40] LABS: Bedside Glucose 167 mg/dL (74-106)
[2024-03-23 06:41] LABS: ALB/GLOB Ratio 1.3 RATIO (0.9-2.4); AST(SGOT) 31 U/L (15-37); Alanine Aminotransfer ALT/SGPT 43 U/L (13-56); Albumin, Serum 3.3 g/dL (3.2-5.0); Alkaline Phosphatase 111 U/L (45-117); Anion Gap 4 (5-15); BUN 10 mg/dL (7-18); BUN/Creat Ratio 17.3 RATIO (10-20); Calcium,Total 8.8 mg/dL (8.5-10.1); Chloride 106 mmol/L (98-107); Creatinine, Serum 0.58 mg/dL (0.55-1.02); EST Glomerular Filtration Rate 109 mL/min (>60); Est Glom Filt Rate - Afr Amer 132 mL/min (>60); Estimated Creatinine Clearance 65.68 ml/min; Globulin 2.6 g/dL (2.2-4.2); Glucose 171 mg/dL (74-106); Potassium 4.3 mmol/L (3.5-5.1); Protein, Total 5.9 g/dL (6.4-8.2); Sodium Level 138 mmol/L (136-145); Troponin-I HS 5 pg/mL (3.0-54.0)
[2024-03-23 06:46] LABS: Differential Indicated SCAN CRITERIA MET; Platelet Count 160 K/mm3 (150-450)
[2024-03-23] MEDS: Ipratropium/Albuterol Sulfate 3 ML AMPUL.NEB INHALATION ×3 (07:39→19:26)
--- NOTE | 2024-03-23 07:43 | NURSING ---
I spoke with Pearl at [facility] transfer line and she stated pt is on their list however they do not have a bed at this time.
[2024-03-23 08:28] LABS: Anisocytosis 2+
[2024-03-23] MEDS: Spironolactone 50 MG Tablet PO (09:26)
[2024-03-23] MEDS: Tolterodine Tartrate 2 MG CAP.SA PO (09:27)
[2024-03-23] MEDS: dilTIAZem CD 180 MG Capsule 360 MG PO (09:27)
[2024-03-23] MEDS: Pantoprazole Sodium 40 MG Tablet PO (09:27)
[2024-03-23] MEDS: Famotidine 20 MG Tablet PO (09:27)
[2024-03-23] MEDS: Furosemide 40 MG Tablet PO ×2 (09:27→17:05)
[2024-03-23] MEDS: Potassium Chloride Oral Tablet 20 MEQ PO ×3 (09:27→17:05)
[2024-03-23] MEDS: Sertraline 100 MG Tablet PO (09:27)
[2024-03-23 11:40] LABS: Bedside Glucose 346 mg/dL (74-106)
[2024-03-23] MEDS: Morphine 4 MG/ML Syringe IV (13:15)
[2024-03-23] MEDS: 0.9% Saline Lock 10 ML Syringe IV (13:16)
--- NOTE | 2024-03-23 13:31 | PCM.PN.HOSP ---
Subjective Subjective Doing well, no issues overnight Objective Data Objective Data Vital Signs: Vital Signs Temp Pulse Resp BP Pulse Ox O2 Del Method O2 Flow Rate 98.1 F 79 20 H 152/57 H 93 Simple Mask 5 03/23/24 07:44 03/23/24 12:46 03/23/24 12:46 03/23/24 09:20 03/23/24 07:44 03/23/24 08:07 03/23/24 08:07 Oxygen Flow Rate (L/min) 5 Oxygen Delivery Method Simple Mask Weight: 184 lb 11.958 oz Body Mass Index (BMI) 33.7 Intake & Output: Intake and Output for Last 24 Hours 03/22/24 03/23/24 03/24/24 03:59 03:59 03:59 Intake Total 200 / 200 1000 / 1000 Output Total 350 / 350 Balance -150 / -150 1000 / 1000 Lab / Micro Data 03/23/24 05:30 03/23/24 05:30 Labs: Laboratory Results - last 24 hr 03/22/24 14:25: WBC 5.8, RBC 6.39 H, Hgb 12.3, Hct 42.7, MCV 66.8 L, MCH 19.2 L, MCHC 28.8 L, RDW Std Deviation 46.4 H, RDW Coeff of Brittany 20.8 H, Plt Count 175, PT 33.6 H, INR 3.3, Sodium 137, Potassium 4.0, Chloride 103, Carbon Dioxide 27.0, Anion Gap 7, BUN 11, Creatinine 0.78, Estim Creat Clear Calc 68.98, Est GFR (MDRD) Af Amer 93, Est GFR (MDRD) Non-Af 77, BUN/Creatinine Ratio 14.0, Glucose 252 H, Calcium 9.9, Total Bilirubin 0.60, AST 21, ALT 31, Alkaline Phosphatase 100, Total Protein 6.6, Albumin 3.7, Globulin 2.9, Albumin/Globulin Ratio 1.3 03/22/24 14:26: Magnesium 2.2 03/22/24 23:30: Troponin I High Sens 4 03/22/24 23:36: POC Glucose 185 H 03/23/24 01:14: Troponin I High Sens 4 03/23/24 05:30: WBC 7.7, RBC 5.69 H, Hgb 10.9 L, Hct 38.9, MCV 68.4 L, MCH 19.2 L, MCHC 28.0 L, RDW Std Deviation 48.2 H, RDW Coeff of Brittany 20.6 H, Plt Count 160, Immature Gran % (Auto) 0.400, Neut % (Auto) 75.3 H, Lymph % (Auto) 10.7 L, [place] % (Auto) 11.9 H, Eos % (Auto) 1.6, Baso % (Auto) 0.1, Absolute Neuts (auto) 5.8, Absolute Lymphs (auto) 0.82 L, Nucleated RBC % 0, Anisocytosis 2+, PT 29.6 H, INR 2.8, Sodium 138, Potassium 4.3, Chloride 106, Carbon Dioxide 27.0, Anion Gap 4 L, BUN 10, Creatinine 0.58, Estim Creat Clear Calc 65.68, Est GFR (MDRD) Af Amer 132, Est GFR (MDRD) Non-Af 109, BUN/Creatinine Ratio 17.3, Glucose 171 H, Calcium 8.8, Total Bilirubin 0.60, AST 31, ALT 43, Alkaline Phosphatase 111, Troponin I High Sens 5, Total Protein 5.9 L, Albumin 3.3, Globulin 2.6, Albumin/Globulin Ratio 1.3 03/23/24 06:20: POC Glucose 167 H 03/23/24 11:12: POC Glucose 346 H Radiography Diagnostic Testing: Radiology Impression Brain CT 03/22/24 14:45 IMPRESSION: Chronic involutional changes of the brain. Pansinusitis. Electronically Signed: Lito Juarez MD at 15:04 EST , Cervical Spine CT 03/22/24 14:45 IMPRESSION: Multilevel degenerative changes, as described above. Electronically Signed: Lito Juarez MD at 15:02 EST , Hip/Pelvis X-Ray 03/22/24 14:50 IMPRESSION: Nondisplaced right intertrochanteric fracture. Electronically Signed: Lito Juarez MD at 15:05 EST , Chest X-Ray 03/22/24 15:25 IMPRESSION: Asymmetric interstitial densities in the lower lung zones, right more than left. HRCT chest will help clarify if interstitial pneumonitis is a clinical consideration. Electronically Signed: Owen Zamudio MD at 15:36 EST , Physical Exam Narrative General: Alert, Oriented x3, Cooperative, No apparent distress HEENT: Atraumatic, PERRLA, EOMI, Normocephalic Oral: Moist Mucosa Neck: Supple, No JVD Lungs: Diminished, Normal air movement, No rhonchi, No wheeze, No rales Cardiovascular: Regular rate, Regular Rhythm, Normal S1, Normal S2, No murmurs Abdomen: Soft, Non Tender, Non-Distended, No Hepato-splenomegaly Extremities: No edema, Capillary Refill Less than 3 Seconds Skin: No rashes, No breakdown Musculoskeletal: Right lower extremity tender to palpation Neurological: No focal neurological deficits, Motor Exam 5/5 strength throughout, Sensory exam intact to light touch and pain Psych/Mental Status: Normal Affect, Appropriate Assessment & Plan Assessment/Plan (1) Fall: (2) Hip fracture, right: PLAN: Plan #1. General debility, mechanical fall with persistent/intractable right hip pain s/p mechanical fall w/ nondisplaced right intertrochanteric fracture: Case was discussed with orthopedic surgery and hospitalist physician and unfortunately per discussion with anesthesia patient was considered too high risk for surgery at [place] therefore pending tertiary facility transfer where patient has been accepted but unfortunately there is no bed available in the interim will admit to [facility], hackett placement, monitor I/Os, frequent positioning, fall precautions, as needed pain, anti-emetic regimen. Will obtain trop x 1 to be cautious given history complaints. CM consulted for discharge planning as awaiting tertiary facility transfer. Will defer consulting Orthopedic surgery given planned transfer to tertiary facility; however, this may need to be reconsidered if timeline becomes to lengthy. 03/23/2024: Pending transfer to [facility] for surgery given the fact that she is high risk with anesthesia here #2. Chronic COPD/Pulmonary HTN w/ Chronic Hypoxic Respiratory Failure (3-6L NC per charting): Patient following with [facility] given severity, unfortunately patient Ambrisentan is not on formulary, if able to bring from home until transferred to tertiary facility will perform this, continue sildenafil, will hold home inhalers in the interim transition to ATC budesonide therapy, as needed albuterol, continue chronic home oxygen supplementation. #3. Hx VTE (DVT, PE) w/ Antiphospholipid/Lupus syndrome: Patient with history of previous history VTE as noted, s/p IVF placement, will hold Coumadin, presentation INR 3.3, once appropriate would add heparin drip in preparation for surgery, continue to trend INR. #4. Anxiety and Depression/Claustrophobia/Panic disorder/Agoraphobia: We will continue patient home alprazolam as well as sertraline regimen, given significant presentation requiring inpatient especially with agoraphobia low threshold to judiciously use as needed Ativan. #5. History TIA: As noted holding Coumadin, transition to heparin drip once INR appropriate, continue INR trending, continue hypertensive regimen, not on statin therapy per current list with no specific allergy noted, but uncertain. #6. Hypertension: Continue home regimen including spironolactone, Lasix, diltiazem, PRN hydralazine. #7. Diabetes mellitus type II: Hold oral home regimen, ADA diet, accu checks w/ ISS. #8. GERD: We will continue patient on famotidine regimen. #9. Former tobacco use: Encourage continued tobacco cessation. DVT: Therapeutic INR once below to consider heparin drip Charges/Coding Visit Charges Inpatient E&M: 01183 Subs Hosp L2
[2024-03-23 17:26] LABS: Bedside Glucose 152 mg/dL (74-106)
[2024-03-23 17:27] LABS: Squamous Epithelial Cells - UA 0 SEEN /hpf (5-10)
[2024-03-23 17:32] LABS: Color, Urine Yellow (Yellow); Glucose, Dipstick Normal (Normal); Ketone-Dipstick Negative (Negative); Leukocyte Esterase-Dipstick 500 /ul (Negative); Nitrite-Dipstick Positive (Negative); Occult Blood-Urine 25 /ul (Negative); Protein-Dipstick 30 mg/dl (Negative); Specific Gravity, Urine 1.025 (1.002-1.030); Urine Clarity Cloudy (Clear); Urine Urobilinogen Normal (Normal)
[2024-03-23 17:49] LABS: Urine Bilirubin Dipstick 1 mg/dL (Negative)
[2024-03-23 18:01] LABS: Bacteria 3+ /hpf (None Seen); Mucous, Urine 1+ /hpf (<or=2+); Red Blood Cells-Urine 0-5 SEEN /hpf (0-5); White Blood Cells 10-25 SEEN /hpf (0-5)
[2024-03-23] MEDS: Acetaminophen 325 MG Tablet 650 MG PO (19:55)
[2024-03-23] MEDS: Senna/Docusate Sodium 1 Tablet 2 TABLET PO (21:05)
[2024-03-23] MEDS: Pravastatin 40 MG Tablet PO (21:05)
--- NOTE | 2024-03-23 21:53 | PCM.HOSP.N ---
Hospitalist Note Patient with notable UA secondary to onset dysuria and foul smelling urine. Will add IV rocephin based on prior Cx noted w/ E. Coli decently sensitive, UCx requested.
[2024-03-23] MEDS: Ceftriaxone 1 GM/50 ML BAG IV (22:21)
[2024-03-23 22:59] LABS: Bedside Glucose 200 mg/dL (74-106)
[2024-03-24 04:22] VITALS: BMI 35.3
[2024-03-24 05:07] VITALS: BP 153/57; PULSE 87; RESP 18; TEMP 36.7; O2SAT 94
[2024-03-24] MEDS: SILDENAFIL CITRATE 20 MG TABLET 60 MG PO ×2 (05:09→08:51)
[2024-03-24] MEDS: Insulin Lispro 100 UNIT/ML INSULN.PEN SC (06:02)
[2024-03-24 06:46] LABS: Bedside Glucose 202 mg/dL (74-106)
[2024-03-24 07:42] LABS: Prothrombin Time (Protime)PT. 22.4 SECONDS (11.7-14.9)
[2024-03-24 07:44] VITALS: PULSE 88; RESP 20
[2024-03-24] MEDS: Ipratropium/Albuterol Sulfate 3 ML AMPUL.NEB INHALATION (07:44)
--- NOTE | 2024-03-24 08:13 | NURSING ---
gave report to johny JONES at [facility]
[2024-03-24 08:50] VITALS: BP 156/59; PULSE 102; RESP 18; TEMP 37.8; O2SAT 92
[2024-03-24] MEDS: Spironolactone 50 MG Tablet PO (08:51)
[2024-03-24] MEDS: Furosemide 40 MG Tablet PO (08:51)
[2024-03-24] MEDS: Senna/Docusate Sodium 1 Tablet 2 TABLET PO (08:51)
[2024-03-24] MEDS: Potassium Chloride Oral Tablet 20 MEQ PO (08:51)
[2024-03-24] MEDS: Acetaminophen 325 MG Tablet 650 MG PO (08:52)
[2024-03-24] MEDS: ALPRAZolam 0.5 MG Tablet PO (08:52)
[2024-03-24] MEDS: Pantoprazole Sodium 40 MG Tablet PO (08:52)
[2024-03-24] MEDS: Sertraline 100 MG Tablet PO (08:52)
[2024-03-24] MEDS: oxyCODONE 5 MG Tablet PO (08:52)
[2024-03-24] MEDS: Tolterodine Tartrate 2 MG CAP.SA PO (08:52)
[2024-03-24] MEDS: dilTIAZem CD 180 MG Capsule 360 MG PO (08:52)
[2024-03-24] MEDS: Famotidine 20 MG Tablet PO (08:53)
--- NOTE | 2024-03-24 11:36 | DS.PCM_ITS ---
Providers Date of Admission: 03/22/24 Primary Care Physician: Dr. Jose Miguel Pedraza, DO Reason For Visit: FALL, R HIP FRX Diagnosis Discharge Diagnosis (1) Fall: Status: Acute Code(s): W19.XXXA - Unspecified fall, initial encounter (2) Hip fracture, right: Status: Acute Code(s): S72.001A - Fracture of unspecified part of neck of right femur, initial encounter for closed fracture Plan Medications at Discharge Home Medications ambrisentan 10 mg tablet 10 mg PO DAILY 04/21/16 sildenafil 60 mg PO TID 07/24/21 albuterol sulfate 90 mcg/actuation aerosol inhaler 1 puff inhalation Q6H PRN bronchospasm #8.5 grams 08/28/21 blood sugar diagnostic #100 ea 10/09/21 lancets (OneTouch UltraSoft Lancets) #200 ea 10/09/21 tiotropium bromide 1.25 mcg/actuation mist for inhalation (Spiriva Respimat) 2 puff inhalation DAILY #4 grams 12/03/21 Oxygen, Home [Home Oxygen] 6 l NASAL CONT 05/15/23 tolterodine 2 mg capsule,extended release 24 hr 2 mg PO DAILY #90 caps 06/02/23 omeprazole 40 mg capsule,delayed release 40 mg PO DAILY #90 caps 07/22/23 spironolactone 50 mg tablet 50 mg PO DAILY #90 tabs 07/28/23 budesonide-formoterol HFA 160 mcg-4.5 mcg/actuation aerosol inhaler 2 puff inhalation BID 09/10/23 nystatin 100,000 unit/gram topical cream 1 applic topical PRN 09/10/23 metformin 500 mg tablet 500 mg PO BID #180 tabs 09/16/23 pravastatin 40 mg tablet 40 mg PO QHS #90 tabs 09/16/23 diltiazem HCl 360 mg tablet,extended release 24 hr (Matzim LA) 360 mg PO DAILY heart #90 tabs 11/20/23 handicap placard #1 ea 12/29/23 famotidine 20 mg tablet 20 mg PO QDAY 12/31/23 potassium chloride 20 mEq tablet,extended release 20 meq PO TID #270 tabs 02/16/24 alprazolam 0.5 mg tablet (Xanax) 0.5 mg PO BID PRN anxiety #60 tabs 02/24/24 sertraline 100 mg tablet 100 mg PO DAILY #90 tabs 03/02/24 furosemide 40 mg tablet 40 mg PO BID #180 tabs 03/16/24 warfarin 4 mg tablet 4 mg PO DAILY 03/22/24 Hospital Course Operations None Procedures None Summary of Care Provided Minutes Spent on Discharge: 32 Hospital Course: Per HPI: The patient is a 69 y/o F w/ PMHx: HTN, GERD, Diabetes mellitus type II, Chronic COPD/Pulmonary HTN w/ Chronic Hypoxic Respiratory Failure following with [facility] given severity, Hx VTE (DVT, PE) w/ Antiphospholipid/Lupus syndrome on coumadin, Anxiety and Depression/Claustrophobia/Panic disorder/Agoraphobia, Former tobacco use, Hx TIA who presents to the [facility] ED on 03/22/24 with history of mechanical fall after she was lightheaded and dizzy with no recent illness but states she had recently had decreased intake and was potentially dehydrated specifically having been checking her mail when this happened falling onto her right hip and striking the right side of her head with no loss of consciousness but unfortunately intractable right hip pain following an inability to stand with also a mild headache prompting call to her daughter with then called EMS and transition to the ED for evaluation. Patient notes that the right hip discomfort currently has abated but will intermittently come back and reports it is sharp shooting pain that she rates 7-8 out of 10 in severity. Workup in the ED included T98, heart rate 70, BP 129/53, respiratory rate 24, 94% on 2 L nasal cannula with most recent repeat vitals heart rate 87, BP 145/58, respiratory rate 21, 95% on 4 L nasal cannula, CBC with WBC 5.8, human 12.3, MCV 66.8, platelet 175 without differential, INR 3.3, CMP not marked appearing aside glucose 252, CT of the brain with chronic involutional changes, pansinusitis, CT cervical spine with multilevel degenerative changes with no acute findings, chest x-ray with asymmetrical interstitial densities in the lower lung zones right more than left with unclear baseline with significant pulmonary disease is noted, plain film of the right hip and pelvis with evidence of a nondisplaced right intertrochanteric fracture, EKG with sinus rhythm with first-degree AV block with no acute evidence of ischemia. Given significant underlying pulmonary history per discussion with hospitalist medicine and orthopedic surgery patient considered significantly elevated risk for anesthesia at [facility] and therefore transfer recommended and as patient is following with pulmonary medicine/pulmonary hypertensive clinic at [facility] this facility was chosen. Unfortunately currently there were reportedly no beds therefore pending bed availability patient brought in per ED request until tertiary facility bed made available. Dr. Richards Orthopedic surgery accepted patient. Did discuss with patient and family unfortunately [facility] can take several days for transfer and they understand this is a possible timeline outcome. Hospital Course: #1. General debility, mechanical fall with persistent/intractable right hip pain s/p mechanical fall w/ nondisplaced right intertrochanteric fracture: Case was discussed with orthopedic surgery and hospitalist physician and unfortunately per discussion with anesthesia patient was considered too high risk for surgery at [facility] therefore pending tertiary facility transfer where patient has been accepted but unfortunately there is no bed available in the interim will admit to [facility], hackett placement, monitor I/Os, frequent positioning, fall precautions, as needed pain, anti-emetic regimen. Will obtain trop x 1 to be cautious given history complaints. CM consulted for discharge planning as awaiting tertiary facility transfer. Will defer consulting Orthopedic surgery given planned transfer to tertiary facility; however, this may need to be reconsidered if timeline becomes to lengthy. 03/23/2024: Pending transfer to [facility] for surgery given the fact that she is high risk with anesthesia here 03/24/2024: She did get a bed at [facility] and will be discharged today. Of note UA was consistent with UTI she was given a dose of IV Rocephin last evening. Urine culture is pending would encourage [facility] to call back in a day or 2 for finalized culture data #2. Chronic COPD/Pulmonary HTN w/ Chronic Hypoxic Respiratory Failure (3-6L NC per charting): Patient following with [facility] given severity, unfortunately patient Ambrisentan is not on formulary, if able to bring from home until transferred to tertiary facility will perform this, continue sildenafil, will hold home inhalers in the interim transition to ATC budesonide therapy, as needed albuterol, continue chronic home oxygen supplementation. #3. Hx VTE (DVT, PE) w/ Antiphospholipid/Lupus syndrome: Patient with history of previous history VTE as noted, s/p IVF placement, will hold Coumadin, presentation INR 3.3, once appropriate would add heparin drip in preparation for surgery, continue to trend INR. 03/24/2024: INR of 2.0 today #4. Anxiety and Depression/Claustrophobia/Panic disorder/Agoraphobia: We will continue patient home alprazolam as well as sertraline regimen, given significant presentation requiring inpatient especially with agoraphobia low threshold to judiciously use as needed Ativan. #5. History TIA: As noted holding Coumadin, transition to heparin drip once INR appropriate, continue INR trending, continue hypertensive regimen, not on statin therapy per current list with no specific allergy noted, but uncertain. #6. Hypertension: Continue home regimen including spironolactone, Lasix, diltiazem, PRN hydralazine. #7. Diabetes mellitus type II: Hold oral home regimen, ADA diet, accu checks w/ ISS. #8. GERD: We will continue patient on famotidine regimen. #9. Former tobacco use: Encourage continued tobacco cessation. Physical Exam Narrative General: Alert, Oriented x3, Cooperative, No apparent distress HEENT: Atraumatic, PERRLA, EOMI, Normocephalic Oral: Moist Mucosa Neck: Supple, No JVD Lungs: Diminished, Normal air movement, No rhonchi, No wheeze, No rales Cardiovascular: Regular rate, Regular Rhythm, Normal S1, Normal S2, No murmurs Abdomen: Soft, Non Tender, Non-Distended, No Hepato-splenomegaly Extremities: No edema, Capillary Refill Less than 3 Seconds Skin: No rashes, No breakdown Musculoskeletal: Right lower extremity tender to palpation Neurological: No focal neurological deficits, Motor Exam 5/5 strength throughout, Sensory exam intact to light touch and pain Psych/Mental Status: Normal Affect, Appropriate Weight / BMI Weight Weight: 193 lb 1.999 oz Body Mass Index (BMI) 35.3 ABG / Lab / Microbiology Data 03/23/24 05:30 03/23/24 05:30 Laboratory: Laboratory Results - last 24 hr 03/23/24 11:12: POC Glucose 346 H 03/23/24 15:55: Urine Color Yellow, Urine Clarity Cloudy, Urine pH 6.0, Ur Specific [place] 1.025, Urine Protein 30 H, Urine Glucose (UA) Normal, Urine Ketones Negative, Urine Occult Blood 25 H, Urine Nitrite Positive H, Urine Bilirubin 1 H, Urine Urobilinogen Normal, Ur Leukocyte Esterase 500 H, Urine RBC 0-5 SEEN, Urine WBC 10-25 SEEN, Ur Squamous Epith Cells 0 SEEN, Urine Bacteria 3+, Urine Mucus 1+ 03/23/24 17:04: POC Glucose 152 H 03/23/24 21:02: POC Glucose 200 H 03/24/24 06:01: POC Glucose 202 H 03/24/24 06:34: PT 22.4 H, INR 2.0 Meaningful Use Info Meaningful Use Meaningful Use Diagnoses (Choose all that apply): None applicable Ischemic Stroke Statin Dosing Therapy Reference: STATIN DOSE THERAPY REFERENCE: * Patients > 75 years receive moderate or high dose statin therapy. * Patients 75 years or YOUNGER should receive HIGH intensity statin dose unless contraindicated. You will be required to document reason for non-treatment if statin daily dose does not meet guidelines. HIGH DOSE STATIN THERAPY DAILY Atorvastatin > than or = to 40 mg Rosuvastatin > than or = to 20 mg Amlodipine + Atorvastatin > than or = to 2.5/40 mg Ezetimibe + Simvastatin 10/80 mg Simvastatin 80mg Discharge Plan Admission Admit Date/Time: 03/22/24 21:31 Attending Provider: Ger Spence Primary Care Provider: Jose Miguel Pedraza Consulting Providers: Alem Le Discharge Orders/Prescriptions Prescriptions: No Action albuterol sulfate 90 mcg/actuation HFA aerosol inhaler 1 puff INHALATION Q6H PRN (Reason: bronchospasm) Qty: 8.5 3RF tolterodine 2 mg capsule,extended release 24hr 2 mg PO DAILY Qty: 90 3RF (DME) handicap placard See Rx Instructions .Route .MEDSUPPLY Qty: 1 0RF Rx Instructions: Duration 5 years, Diagnosis: Dyspnea famotidine 20 mg tablet 20 mg PO QDAY alprazolam [Xanax] 0.5 mg tablet 0.5 mg PO BID PRN (Reason: anxiety) Qty: 60 0RF ambrisentan 10 MG tablet 10 mg PO DAILY sildenafil 20 mg tablet 60 mg PO TID Oxygen, Home [Home Oxygen] 6 l NASAL CONT Rx Instructions: OF NOTE, PATIENT PRIOR OXYGEN SET-UP WITH 4-5L REST AND 6.5L ACTIVITY. During admission patient transitioned budesonide-formoterol 160-4.5 mcg/actuation HFA aerosol inhaler 2 puff INHALATION BID nystatin 100,000 unit/gram cream 1 applic topical PRN warfarin 4 mg tablet 4 mg PO DAILY Protocol: Dose Management Condition: Thursday Dose/Route: 3 mg Instruction: 1 x 3 mg tablet Condition: Thursday Dose/Route: 3 mg Instruction: 1 x 3 mg tablet Condition: Thursday Dose/Route: 3 mg Instruction: 1 x 3 mg tablet Condition: Thursday Dose/Route: 3 mg Instruction: 1 x 3 mg tablet Condition: Dose/Route: 3 mg Instruction: 1 x 3 mg tablet Condition: Thursday Dose/Route: 3 mg Instruction: 1 x 3 mg tablet Condition: Thursday Dose/Route: 3 mg Instruction: 1 x 3 mg tablet Protocol Text: Adjustment Start Date: 05/22/22 INR Value: 4.3 INR Date: 05/21/22 Recheck Date: 05/28/22 [place] blood sugar diagnostic Strip See Rx Instructions .ROUTE .MEDSUPPLY Qty: 100 3RF Dose Instruction: As directed Rx Instructions: check blood sugar three times a day ([facility] lancets [OneTouch UltraSoft Lancets] Misc See Rx Instructions .ROUTE .MEDSUPPLY Qty: 200 2RF Dose Instruction: As directed Rx Instructions: daily- check blood sugar three times a day Spiriva Respimat 1.25 mcg/actuation mist 2 puff inhalation DAILY Qty: 4 0RF omeprazole 40 mg capsule,delayed release(DR/EC) 40 mg PO DAILY Qty: 90 3RF spironolactone 50 mg tablet 50 mg PO DAILY Qty: 90 1RF metformin 500 mg tablet 500 mg PO BID Qty: 180 1RF pravastatin 40 mg tablet 40 mg PO QHS Qty: 90 3RF diltiazem HCl [Matzim LA] 360 mg tablet extended release 24 hr 360 mg PO DAILY Qty: 90 1RF potassium chloride 20 mEq tablet extended release 20 meq PO TID Qty: 270 0RF sertraline 100 mg tablet 100 mg PO DAILY Qty: 90 1RF furosemide 40 mg tablet 40 mg PO BID Qty: 180 2RF Referrals / Follow Up: Jose Miguel Pedraza, [Primary Care Provider] - Disposition Disposition (needs filled in before D/C Order can be placed): Acute Care Hospital Charges/Coding Visit Charges Inpatient E&M: 47423 Disch Hosp >30min
== END 2024-03-24 10:45 | disposition short-term general hospital (02) | DRG 536 ==
LOC: ED 21:45 → PCU 21:49
PROVIDERS: Admitting Provider Family Medicine; Emergency Provider Emergency Medicine; PCP Family Medicine; Visit Provider Family Medicine
DX: S72.144A Nondisplaced intertrochanteric fracture of right femur, initial encounter for closed fracture (principal); D68.61 Antiphospholipid syndrome; J96.11 Chronic respiratory failure with hypoxia; N39.0 Urinary tract infection, site not specified; Z66 Do not resuscitate; I27.21 Secondary pulmonary arterial hypertension; Z99.81 Dependence on supplemental oxygen; E11.9 Type 2 diabetes mellitus without complications; J44.9 Chronic obstructive pulmonary disease, unspecified; F32.A Depression, unspecified; I10 Essential (primary) hypertension; F41.9 Anxiety disorder, unspecified; I44.0 Atrioventricular block, first degree; W19.XXXA Unspecified fall, initial encounter; K21.9 Gastro-esophageal reflux disease without esophagitis; R51.9 Headache, unspecified; F40.240 Claustrophobia; R53.81 Other malaise; F40.01 Agoraphobia with panic disorder; M81.0 Age-related osteoporosis without current pathological fracture; Z88.1 Allergy status to other antibiotic agents; Z86.73 Personal history of transient ischemic attack (TIA), and cerebral infarction without residual deficits; Z79.84 Long term (current) use of oral hypoglycemic drugs; Z90.49 Acquired absence of other specified parts of digestive tract; Z79.01 Long term (current) use of 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; Z87.891 Personal history of nicotine dependence; Z86.711 Personal history of pulmonary embolism; Z86.718 Personal history of other venous thrombosis and embolism; Z79.899 Other long term (current) drug therapy
CPT/HCPCS: 36415; 51702; 70450; 71045; 72125; 73502; 80053; 81001; 82962; 83735; 84484; 85025; 85027; 85610; 87077; 87086; 87088; 87186; 93005; 94640; 97802; 99285; A4216; J2405

== ENCOUNTER 2024-06-02 17:54 | Emergency (ER) | payer MEDICARE, SELFPAY ==
[2024-06-02 17:55] VITALS: BP 152/55; PULSE 97; RESP 24; TEMP 36.2; O2SAT 90
--- NOTE | 2024-06-02 18:05 | CT_ITS ---
STUDY: CT BRAIN WITHOUT CONTRAST REASON FOR EXAM: Female, 69 years old. fell hit head, on thinners, history of TIA RADIATION DOSAGE (If Supplied By Facility): CTDIvol = ( 44.99 ) mGy, DLP = ( 880.47 ) mGycm TECHNIQUE: Transaxial CT imaging of the brain was performed without administration of intravenous contrast material. Individualized dose optimization techniques were used for this CT. COMPARISON: Head CT dated March 22, 2024 FINDINGS: No visualized skull fracture or pneumocephalus or subdural hemorrhage. No extra-axial fluid collections are present. Normal soft tissue structures. There is hyperostosis frontalis internus. There is mild cerebral atrophy with widening of the extra-axial spaces and ventricular dilatation. There are areas of decreased attenuation within the white matter tracts of the supratentorial brain, consistent with microvascular disease changes. Normal basal ganglia and thalami. Normal brainstem. Normal cerebellum. There is no intracranial hemorrhage. There are no findings of an acute ischemic infarction. There is mucoperiosteal inflammatory disease of the paranasal sinuses consistent with severe chronic sinusitis. CT/Brain/Head without Contrast IMPRESSION: 1. Chronic involutional changes of the brain. Recommendations: * Unresolved symptoms should be further assessed/pursued with neurology consult and evaluation * Advanced imaging including brain MRI, CTA, and CT brain perfusion should also be obtained if there are concerns for acute ischemia, possible malignancy, and other concerning processes or if clinical symptoms remain unresolved or worsen. Electronically Signed: Camilo Hendrickson MD at 19:26 EST ,
--- NOTE | 2024-06-02 18:11 | EDS_ITS ---
HPI <MIKAYLA Abreu - Last Filed: 06/02/24 19:45> History of Present Illness Chief Complaint: Fall Narrative Narrative: Patient is a 69-year-old female with history of lupus with an anticoagulant disorder on Coumadin, hypertension hyperlipidemia pulmonary hypertension, on 5 to 6 L nasal cannula oxygen daily. Presenting to the emergency department after mechanical fall. Patient states that she does have dizzy spells have been ongoing for years. She has been seen several times for this. Pay states she was on her walker when she went to lean forward and falling striking the back of her head. Denies any LOC. Patient did have her INR checked today that was 2.3. PFSH <MIKAYLA Abreu - Last Filed: 06/02/24 19:45> [facility] Medical History Diabetes On home oxygen therapy DVT (deep venous thrombosis) TIA (transient ischemic attack) Panic disorder with agoraphobia Osteoporosis Former smoker Pulmonary embolism Urinary tract infection Primary pulmonary hypertension (PPH) COPD (chronic obstructive pulmonary disease) Claustrophobia Anxiety Depression TIA (transient ischemic attack) Type 2 diabetes mellitus Atrial fibrillation Lupus anticoagulant disorder Pulmonary arterial hypertension Home Medications ?Medication ?Instructions ?Recorded ?Last Taken ?Type ambrisentan 10 mg tablet 10 mg PO DAILY 04/21/16 Unknown History sildenafil 60 mg PO TID 07/24/21 11/17/22 History albuterol sulfate 90 mcg/actuation 1 puff inhalation Q6H PRN 08/28/21 Unknown Rx aerosol inhaler bronchospasm #8.5 grams blood sugar diagnostic #100 ea 10/09/21 Unknown Rx lancets (OneTouch UltraSoft #200 ea 10/09/21 Unknown Rx Lancets) tiotropium bromide 1.25 2 puff inhalation DAILY #4 grams 12/03/21 Unknown Rx mcg/actuation mist for inhalation (Spiriva Respimat) Oxygen, Home [Home Oxygen] 6 l NASAL CONT 05/15/23 05/15/23 History tolterodine 2 mg capsule,extended 2 mg PO DAILY #90 caps 06/02/23 Unknown Rx release 24 hr omeprazole 40 mg capsule,delayed 40 mg PO DAILY #90 caps 07/22/23 Unknown Rx release spironolactone 50 mg tablet 50 mg PO DAILY #90 tabs 07/28/23 Unknown Rx budesonide-formoterol HFA 160 2 puff inhalation BID 09/10/23 Unknown History mcg-4.5 mcg/actuation aerosol inhaler nystatin 100,000 unit/gram topical 1 applic topical PRN 09/10/23 Unknown History cream metformin 500 mg tablet 500 mg PO BID #180 tabs 09/16/23 Unknown Rx pravastatin 40 mg tablet 40 mg PO QHS #90 tabs 09/16/23 Unknown Rx diltiazem HCl 360 mg 360 mg PO DAILY heart #90 tabs 11/20/23 Unknown Rx tablet,extended release 24 hr (Matzim [place]) handicap placard #1 ea 12/29/23 Unknown Rx potassium chloride 20 mEq 20 meq PO TID #270 tabs 02/16/24 Unknown Rx tablet,extended release alprazolam 0.5 mg tablet (Xanax) 0.5 mg PO BID PRN anxiety #60 tabs 02/24/24 Unknown Rx sertraline 100 mg tablet 100 mg PO DAILY #90 tabs 03/02/24 Unknown Rx furosemide 40 mg tablet 40 mg PO BID #180 tabs 03/16/24 Unknown Rx warfarin 3 mg tablet 3 mg PO DAILY #60 tabs 06/01/24 Unknown Rx Allergy/AdvReac Type Severity Reaction Status Date / Time doxycycline AdvReac Intermediate Other Verified 05/02/24 11:00 prednisone AdvReac Mild Other Verified 05/02/24 11:00 nitroglycerin AdvReac Other Verified 05/02/24 11:00 Family History Mother COPD (chronic obstructive pulmonary disease) Cancer melanoma Father Heart disease Alcoholism Grandmother Cancer Grandfather Parkinsons disease Surgical History History of embolic filter insertion H/O endoscopy H/O colonoscopy History of placement of ear tubes history of bunion surgery History of tonsillectomy History of cholecystectomy Social History household members: none Smoking Status: Former smoker Tobacco: How many years used: 8 how long ago did patient quit smokin years alcohol intake: never substance use type: does not use what type of physical activity do you participate in: none ROS <MIKYALA Abreu - Last Filed: 06/02/24 19:45> ROS ED ROS Narrative Constitutional: Negative for fever, chills, weight loss, weakness Eyes: Negative for vision loss, vision change, double vision ENT: Negative for any sore throat, ear pain, congestion Cardiovascular: Negative for any chest pain, tightness, palpitations Respiratory: Negative for any cough, sputum production, hemoptysis, dyspnea, dyspnea on exertion, orthopnea Gastrointestinal: Negative for any abdominal pain, nausea, vomiting, diarrhea, constipation, blood in stool, blood in vomit : Negative for any urinary frequency, dysuria, retention, blood in urine Muscle skeletal: Negative for any neck pain, back pain Neurological: Negative for any syncope, dizziness. Positive for headache Skin: Negative for any rashes, itching, abrasions, lacerations Psychiatric: Negative for any depression, anxiety, stress, suicidal ideation, homicidal ideation Hematologic: Negative for any excessive bruising, easy bleeding EXAM <MIKAYLA Abreu - Last Filed: 06/02/24 19:45> Physical Exam Narrative Exam Narrative: Vital signs reviewed. HEET: Head normocephalic atraumatic, TMs clear bilaterally. Posterior pharynx is clear, moist mucous membranes. Nares clear bilaterally. Pupils are equal round reactive to light, negative for any hemotympanum or septal hematoma. Patient does have superficial abrasions of the right eyebrow however there is no significant laceration. Patient does have a slight hematoma to the occiput however this is minor. Neck: Supple with no lymphadenopathy or tenderness. No signs of meningismus. Cardiac: Regular rate and rhythm no murmurs gallops or rubs, equal peripheral pulses bilaterally. Respiratory: Lungs clear to auscultation bilaterally. No chest tenderness. Abdomen: Soft, nontender, nondistended. No abdominal bruit or pulsatile masses. No hepatosplenomegaly Extremities: No peripheral edema, no signs of gross trauma or deformity. Active full range of motion of all extremities. Neuro: Cranial nerves II through XII intact, no focal neurological deficits. Skin: Clean dry and intact with no rash, purpura, petechiae, vesicles or pustules. Backs/flank: No CVA tenderness, no midline spinal tenderness, no deformity. Psych: Normal mood and affect. No SI, HI or acute psychosis. Const Vital Signs: 06/02/24 17:55 06/02/24 18:08 Temperature 97.2 F L Temperature Source Temporal Pulse Rate 97 Respiratory Rate 24 H Respiratory Effort Normal Blood Pressure 152/55 H Blood Pressure Mean 87 Pulse Ox 90 Oxygen Delivery Method Nasal Cannula Oxygen Flow Rate (L/min) 3 Positive well nourished and well developed General Appearance ED: well developed <Dr. Endy Marquez MD - Last Filed: 06/02/24 18:35> Physical Exam Const Vital Signs: 06/02/24 17:55 06/02/24 18:08 Temperature 97.2 F L Temperature Source Temporal Pulse Rate 97 Respiratory Rate 24 H Respiratory Effort Normal Blood Pressure 152/55 H Blood Pressure Mean 87 Pulse Ox 90 Oxygen Delivery Method Nasal Cannula Oxygen Flow Rate (L/min) 3 MDM <MIKAYLA Abreu - Last Filed: 06/02/24 19:45> MDM Radiography Diagnostic Testing: Clinical Impression(s) from Imaging Studies Brain CT 06/02/24 18:05 IMPRESSION: 1. Chronic involutional changes of the brain. Recommendations: * Unresolved symptoms should be further assessed/pursued with neurology consult and evaluation * Advanced imaging including brain MRI, CTA, and CT brain perfusion should also be obtained if there are concerns for acute ischemia, possible malignancy, and other concerning processes or if clinical symptoms remain unresolved or worsen. Electronically Signed: Camilo Hendrickson MD at 19:26 EST Reading Location ID and State: [address] [place] [address] , Service support , Treatment and Re-Evaluation :: Differential diagnosis includes however is not limited to: Concussion, closed head injury, scalp hematoma, skull fracture, intracranial bleeding Patient appears generally well, vital signs are stable, patient is nontoxic- appearing. Presenting to the emergency department after mechanical fall striking the back of her head. Patient does have superficial laceration of the right eyebrow however this does not require any sutures. Patient does have a small hematoma to the occiput, CT scan of the brain will be obtained secondary the patient being anticoagulated. All radiologic examinations were read, reviewed by the emergency department attending. From these reads, a plan of care will be put in place. Patient's CT scan of the brain shows chronic involutional changes of the brain. There is no intracranial hemorrhage, there is no findings of acute ischemic infarction. At this time, do we have the patient stable for discharge. On reevaluation the patient was feeling well. All questions answered, patient stable for discharge and given return precautions <Dr. Endy Marquez MD - Last Filed: 06/02/24 18:35> [facility] Narrative Medical decision making narrative: I have personally performed a face to face assessment of the patient and have reviewed the JÚNIOR Note. I performed a substantive portion of the visit including all aspects of the following. My estrada findings include: History is [69-year-old female on chronic anticoagulation with Coumadin. Leaned over lost her balance fell struck her head on the floor. No LOC. No other complaints. No headache or vomiting.] Exam is [well-appearing 69-year-old female. Vital signs are stable afebrile. No distress. Family present in room. H EENT exam pupils round reactive light. There is minor laceration lateral to her right eyebrow. Is not bleeding. There is a minor hematoma. It does not need to be closed. She is up posterior scalp very small dime size hematoma. Not very raised. No laceration. Neck nontender. Trachea midline. Lungs clear to auscultation. Heart regular rhythm no murmur. Chest wall nontender. Abdomen is soft. Pelvic girdle intact. Moving all 4 extremities. Normal medication manager. Normal dorsi plantarflexion. No deformity. No tenderness. No bruising. Patient is awake and alert. No focal motor deficits. Back nontender. She does wear O2 chronically.] Medical Decision Making [69-year-old fall head injury on anticoagulation CAT scan being obtained. Tylenol for pain.] Other additions or changes: [None] Radiography Diagnostic Testing: Clinical Impression(s) from Imaging Studies Brain CT 06/02/24 18:05 IMPRESSION: 1. Chronic involutional changes of the brain. Recommendations: * Unresolved symptoms should be further assessed/pursued with neurology consult and evaluation * Advanced imaging including brain MRI, CTA, and CT brain perfusion should also be obtained if there are concerns for acute ischemia, possible malignancy, and other concerning processes or if clinical symptoms remain unresolved or worsen. Electronically Signed: Camilo Hendrickson MD at 19:26 EST , Discharge Plan Triage Chief Complaint: Fall ED Midlevel Provider: Robert Marte ED Provider: Endy Marquez Dx/Rx/DC Orders Clinical Impression: Fall, Head injury Instructions: ED Head Injury (Adult) Prescriptions: No Action albuterol sulfate 90 mcg/actuation HFA aerosol inhaler 1 puff INHALATION Q6H PRN (Reason: bronchospasm) Qty: 8.5 3RF tolterodine 2 mg capsule,extended release 24hr 2 mg PO DAILY Qty: 90 3RF (DME) handicap placard See Rx Instructions .Route .MEDSUPPLY Qty: 1 0RF Rx Instructions: Duration 5 years, Diagnosis: Dyspnea alprazolam [Xanax] 0.5 mg tablet 0.5 mg PO BID PRN (Reason: anxiety) Qty: 60 0RF ambrisentan 10 MG tablet 10 mg PO DAILY sildenafil 20 mg tablet 60 mg PO TID Oxygen, Home [Home Oxygen] 6 l NASAL CONT Rx Instructions: OF NOTE, PATIENT PRIOR OXYGEN SET-UP WITH 4-5L REST AND 6.5L ACTIVITY. During admission patient transitioned budesonide-formoterol 160-4.5 mcg/actuation HFA aerosol inhaler 2 puff INHALATION BID nystatin 100,000 unit/gram cream 1 applic topical PRN (DME) blood sugar diagnostic Strip See Rx Instructions .ROUTE .MEDSUPPLY Qty: 100 3RF Dose Instruction: As directed Rx Instructions: check blood sugar three times a day (DME) lancets [OneTouch UltraSoft Lancets] [facility] See Rx Instructions .ROUTE .MEDSUPPLY Qty: 200 2RF Dose Instruction: As directed Rx Instructions: daily- check blood sugar three times a day Spiriva Respimat 1.25 mcg/actuation mist 2 puff inhalation DAILY Qty: 4 0RF omeprazole 40 mg capsule,delayed release(DR/EC) 40 mg PO DAILY Qty: 90 3RF spironolactone 50 mg tablet 50 mg PO DAILY Qty: 90 1RF metformin 500 mg tablet 500 mg PO BID Qty: 180 1RF pravastatin 40 mg tablet 40 mg PO QHS Qty: 90 3RF diltiazem HCl [Matzim [place]] 360 mg tablet extended release 24 hr 360 mg PO DAILY Qty: 90 1RF potassium chloride 20 mEq tablet extended release 20 meq PO TID Qty: 270 0RF sertraline 100 mg tablet 100 mg PO DAILY Qty: 90 1RF furosemide 40 mg tablet 40 mg PO BID Qty: 180 2RF warfarin 3 mg tablet 3 mg PO DAILY Qty: 60 1RF Protocol: Dose Management Condition: Thursday Dose/Route: 3 mg Instruction: 1 x 3 mg tablet Condition: Thursday Dose/Route: 3 mg Instruction: 1 x 3 mg tablet Condition: Thursday Dose/Route: 3 mg Instruction: 1 x 3 mg tablet Condition: Thursday Dose/Route: 3 mg Instruction: 1 x 3 mg tablet Condition: Dose/Route: 3 mg Instruction: 1 x 3 mg tablet Condition: Thursday Dose/Route: 3 mg Instruction: 1 x 3 mg tablet Condition: Thursday Dose/Route: 3 mg Instruction: 1 x 3 mg tablet Protocol Text: Adjustment Start Date: 05/22/22 INR Value: 4.3 INR Date: 05/21/22 Recheck Date: 05/28/22 Rx Instructions: 3mg po qd 5 days a week. Primary Care Provider: Jose Miguel Pedraza Referrals: Jose Miguel Pedraza, DO [Primary Care Provider] - Activity Restrictions/Additional Instructions: You had a CT scan today that was negative. Please take Tylenol at home. You may be sore for couple days. Return for any worsening symptoms Print Language: Citizen Of [place] Disposition Disposition: Home, Self Care
[2024-06-02] MEDS: Acetaminophen 500 MG Tablet 1000 MG PO (18:47)
[2024-06-02 19:54] VITALS: BP 145/60; PULSE 67; RESP 18; TEMP 36.7; O2SAT 97; BMI 29.5
== END 2024-06-02 19:55 | disposition home or self-care (01) ==
PROVIDERS: Emergency Provider Emergency Medicine; PCP Family Medicine; Referring Provider Emergency Medicine; Visit Provider Emergency Medicine
DX: S09.90XA Unspecified injury of head, initial encounter (principal); I27.0 Primary pulmonary hypertension; J44.9 Chronic obstructive pulmonary disease, unspecified; E11.9 Type 2 diabetes mellitus without complications; W19.XXXA Unspecified fall, initial encounter; Z87.891 Personal history of nicotine dependence; Z90.49 Acquired absence of other specified parts of digestive tract; Z79.01 Long term (current) use of 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; Z86.73 Personal history of transient ischemic attack (TIA), and cerebral infarction without residual deficits; Z86.718 Personal history of other venous thrombosis and embolism; Z86.711 Personal history of pulmonary embolism; Z99.81 Dependence on supplemental oxygen
CPT/HCPCS: 70450; 99282

== ENCOUNTER 2024-06-04 16:10 | Emergency (ER) | payer MEDICARE, SELFPAY ==
[2024-06-04 16:11] VITALS: BP 133/60; PULSE 107; RESP 18; TEMP 36.3; O2SAT 92
[2024-06-04 16:12] VITALS: BMI 29.4
--- NOTE | 2024-06-04 16:30 | EX.ED.DYSGE1 ---
HPI <SAMMY Shetty - Last Filed: 06/04/24 18:49> History of Present Illness Chief Complaint: Complaint Narrative Narrative: 69-year-old female with past medical history of HLD, COPD, DM2, TIA went to urgent care because she has had 1 week of cough and her daughters thought she was more confused today and wanted her screened for UTI. They state her urine was too thick to run a dip test and sent her here for evaluation. She states she has had UTIs in the past without symptoms. Her daughters thought she was more confused when answering questions today and she was nauseous and vomited once. She denies abdominal or back pain. She has not had an known fever. She was using a temporal thermometer that gave varying readings anywhere from 98-102 so she is not sure if it was accurate. She is wearing her baseline 4 L of oxygen for COPD. [facility] <SAMMY Shetty - Last Filed: 06/04/24 18:49> [facility] Medical History Diabetes On home oxygen therapy DVT (deep venous thrombosis) TIA (transient ischemic attack) Panic disorder with agoraphobia Osteoporosis Former smoker Pulmonary embolism Urinary tract infection Primary pulmonary hypertension (PPH) COPD (chronic obstructive pulmonary disease) Claustrophobia Anxiety Depression TIA (transient ischemic attack) Type 2 diabetes mellitus Atrial fibrillation Lupus anticoagulant disorder Pulmonary arterial hypertension Home Medications ?Medication ?Instructions ?Recorded ?Last Taken ?Type ambrisentan 10 mg tablet 10 mg PO DAILY 04/21/16 Unknown History albuterol sulfate 90 mcg/actuation 1 puff inhalation Q6H PRN 08/28/21 Unknown Rx aerosol inhaler bronchospasm #8.5 grams blood sugar diagnostic #100 ea 10/09/21 Unknown Rx lancets (OneTouch UltraSoft #200 ea 10/09/21 Unknown Rx Lancets) tiotropium bromide 1.25 2 puff inhalation DAILY #4 grams 12/03/21 Unknown Rx mcg/actuation mist for inhalation (Spiriva Respimat) Oxygen, Home [Home Oxygen] 6 l NASAL CONT 05/15/23 05/15/23 History tolterodine 2 mg capsule,extended 2 mg PO DAILY #90 caps 06/02/23 Unknown Rx release 24 hr omeprazole 40 mg capsule,delayed 40 mg PO DAILY #90 caps 07/22/23 Unknown Rx release spironolactone 50 mg tablet 50 mg PO DAILY #90 tabs 07/28/23 Unknown Rx budesonide-formoterol HFA 160 2 puff inhalation BID 09/10/23 Unknown History mcg-4.5 mcg/actuation aerosol inhaler nystatin 100,000 unit/gram topical 1 applic topical PRN 09/10/23 Unknown History cream metformin 500 mg tablet 500 mg PO BID #180 tabs 09/16/23 Unknown Rx pravastatin 40 mg tablet 40 mg PO QHS #90 tabs 09/16/23 Unknown Rx diltiazem HCl 360 mg 360 mg PO DAILY heart #90 tabs 11/20/23 Unknown Rx tablet,extended release 24 hr (Matzim [place]) handicap placard #1 ea 12/29/23 Unknown Rx potassium chloride 20 mEq 20 meq PO TID #270 tabs 02/16/24 Unknown Rx tablet,extended release sertraline 100 mg tablet 100 mg PO DAILY #90 tabs 03/02/24 Unknown Rx furosemide 40 mg tablet 40 mg PO BID #180 tabs 03/16/24 Unknown Rx warfarin 3 mg tablet 3 mg PO DAILY #60 tabs 06/01/24 Unknown Rx alprazolam 0.5 mg tablet (Xanax) 0.5 mg PO BID PRN anxiety #60 tabs 06/03/24 Unknown Rx ciprofloxacin HCl 500 mg tablet 500 mg PO BID 7 days #14 tabs 06/04/24 Unknown Rx (Cipro) ondansetron 4 mg disintegrating 4 mg PO Q8H PRN PRN Nausea #10 tabs 06/04/24 Unknown Rx tablet sildenafil (pulm.hypertension) 20 60 mg PO TID 06/04/24 Unknown History mg tablet Allergy/AdvReac Type Severity Reaction Status Date / Time doxycycline AdvReac Intermediate Other Verified 06/04/24 16:12 prednisone AdvReac Mild Other Verified 06/04/24 16:12 nitroglycerin AdvReac Other Verified 06/04/24 16:12 Family History Mother COPD (chronic obstructive pulmonary disease) Cancer melanoma Father Heart disease Alcoholism Grandmother Cancer Grandfather Parkinsons disease Surgical History History of embolic filter insertion H/O endoscopy H/O colonoscopy History of placement of ear tubes history of bunion surgery History of tonsillectomy History of cholecystectomy Social History household members: none Smoking Status: Former smoker Tobacco: How many years used: 8 how long ago did patient quit smokin years alcohol intake: never substance use type: does not use what type of physical activity do you participate in: none ROS <SAMMY Shetty - Last Filed: 06/04/24 18:49> ROS ED ROS Narrative Constitutional: Negative for fever, chills. CVS: Negative for chest pain, syncope. Respiratory: Positive for cough. Negative for shortness of breath. GI: Positive for nausea, vomiting. Negative for abdominal pain, diarrhea, melena, hematochezia. : Negative for dysuria, hematuria or frequency. EXAM <SAMMY Shetty - Last Filed: 06/04/24 18:49> Physical Exam Narrative Exam Narrative: CONST: Patient sitting in no acute distress. EYES: Normal inspection. ENT: Normal inspection, moist mucous membranes. NECK: Normal inspection. RESP: No respiratory distress, CTAB. Wearing 4 L nasal cannula. CVS: Regular rate and rhythm, no murmur, no gallop. ABD: Soft and nontender, no guarding or rebound, nondistended. Back: Normal inspection, no CVA tenderness. SKIN: Color normal, no rash, warm, dry, intact. EXTREMITIES: Normal appearance, no pedal edema. NEURO: Alert and oriented x 4. No facial droop, cranial nerves II through XII intact, moving all extremities, follows commands. PSYCH: Normal affect. Const Vital Signs: 06/04/24 16:11 06/04/24 18:15 06/04/24 18:32 Temperature 97.4 F L 97.4 F L Temperature Source Oral Pulse Rate 107 H 91 91 Respiratory Rate 18 19 H 19 H Blood Pressure 133/60 H 133/60 H Blood Pressure Mean 84 84 Pulse Ox 92 98 98 Oxygen Delivery Method Nasal Cannula Nasal Cannula Oxygen Flow Rate (L/min) 3 4 <Dr. Julito Venegas DO - Last Filed: 06/04/24 19:42> Physical Exam Const Vital Signs: 06/04/24 16:11 06/04/24 18:15 06/04/24 18:32 Temperature 97.4 F L 97.4 F L Temperature Source Oral Pulse Rate 107 H 91 91 Respiratory Rate 18 19 H 19 H Blood Pressure 133/60 H 133/60 H Blood Pressure Mean 84 84 Pulse Ox 92 98 98 Oxygen Delivery Method Nasal Cannula Nasal Cannula Oxygen Flow Rate (L/min) 3 4 [facility] <SAMMY Shetty - Last Filed: 06/04/24 18:49> [facility] Narrative Medical decision making narrative: History gathered from patient, her 2 daughters Differential includes pneumonia, viral URI, COPD exacerbation, UTI Patient presents with concerns for pneumonia or UTI. She has had 1 week of URI symptoms. No chest pain or shortness of breath. She appears well and nontoxic. HR is 107, otherwise normal vital signs. She is 92% on her chronic oxygen. She wears 3 to 4 L at home. She has a normal cardiopulmonary exam. Abdomen is soft and nontender. Family was concerned earlier for slightly altered mental status but here she is alert and oriented x 4 and her 2 daughters at bedside state she seems normal. She has no focal neurological deficits. Labs show white count of 11.1, normal hemoglobin at 13.2, platelets 162. BMP overall unremarkable. Glucose 139. Creatinine 0.48. INR is therapeutic at 2.5. CXR shows worsening chronic lung changes and cardiomegaly with central pulmonary venous congestion. She has no clinical signs of fluid overload and BNP was added and is 128 which is unremarkable. She is saturating well on her baseline 4 L and did not drop below 91 with ambulation. Urinalysis is consistent with UTI. I discussed inpatient versus outpatient management with her family and they prefer outpatient of the states she is at her normal mentation. Her daughters live nearby and can check on her. She was prescribed Cipro and Zofran as needed. Return precautions were discussed. Lab Data Attestation: I reviewed the patient's lab results. Labs: Laboratory Results - last 24 hr 06/04/24 06/04/24 17:10 17:24 WBC 11.1 H RBC 5.76 H Hgb 13.2 Hct 42.8 MCV 74.3 L MCH 22.9 L MCHC 30.8 L RDW Std Deviation 49.4 H RDW Coeff of Brittany 19.4 H Plt Count 162 MPV 10.1 Immature Gran % (Auto) 0.400 Neut % (Auto) 84.0 H Lymph % (Auto) 7.9 L [place] % (Auto) 7.1 Eos % (Auto) 0.4 Baso % (Auto) 0.2 Absolute Neuts (auto) 9.3 H Absolute Lymphs (auto) 0.88 Nucleated RBC % 0 PT 27.9 H INR 2.5 Sodium 132 L Potassium 3.5 Chloride 99 Carbon Dioxide 27.0 Anion Gap 6 BUN 13 Creatinine 0.48 L Estim Creat Clear Calc 61.17 Est GFR (MDRD) Af Amer 166 Est GFR (MDRD) Non-Af 137 BUN/Creatinine Ratio 27.3 H Glucose 139 H Calcium 9.8 B-Natriuretic Peptide 128.2 H Urine Color Yellow Urine Clarity Clear Urine pH 6.5 Ur Specific [place] 1.005 Urine Protein 15 H Urine Glucose (UA) Normal Urine Ketones Negative Urine Occult Blood 250 H Urine Nitrite Negative Urine Bilirubin Negative Urine Urobilinogen Normal Ur Leukocyte Esterase 500 H Urine RBC 10-25 SEEN Urine WBC 50-100 SEEN Ur Squamous Epith Cells 0-5 SEEN Ur Renal Epithelial Cell 5-10 SEEN Urine Bacteria 3+ WBC Casts 0-5 SEEN Urine Mucus 1+ Radiography Diagnostic Testing: Clinical Impression(s) from Imaging Studies Chest X-Ray 06/04/24 16:44 IMPRESSION: Slight worsening in chronic lung changes. Recommend CT. Cardiomegaly with central pulmonary venous congestion. Electronically Signed: Mike Wall MD at 17:08 EST Reading Location ID and State: [facility] / [place] Tel , Service support , <Dr. Julito Venegas, DO - Last Filed: 06/04/24 19:42> [facility] MDM Narrative Medical decision making narrative: History gathered from patient, her 2 daughters Differential includes pneumonia, viral URI, COPD exacerbation, UTI Patient presents with concerns for pneumonia or UTI. She has had 1 week of URI symptoms. No chest pain or shortness of breath. She appears well and nontoxic. HR is 107, otherwise normal vital signs. She is 92% on her chronic oxygen. She wears 3 to 4 L at home. She has a normal cardiopulmonary exam. Abdomen is soft and nontender. Family was concerned earlier for slightly altered mental status but here she is alert and oriented x 4 and her 2 daughters at bedside state she seems normal. She has no focal neurological deficits. Labs show white count of 11.1, normal hemoglobin at 13.2, platelets 162. BMP overall unremarkable. Glucose 139. Creatinine 0.48. INR is therapeutic at 2.5. CXR shows worsening chronic lung changes and cardiomegaly with central pulmonary venous congestion. She has no clinical signs of fluid overload and BNP was added and is 128 which is unremarkable. She is saturating well on her baseline 4 L and did not drop below 91 with ambulation. Urinalysis is consistent with UTI. I discussed inpatient versus outpatient management with her family and they prefer outpatient of the states she is at her normal mentation. Her daughters live nearby and can check on her. She was prescribed Cipro and Zofran as needed. Return precautions were discussed. ED attending note: I evaluated the patient in conjunction with the JÚNIOR. I agree with his/her statements and above findings. I have personally performed a face to face assessment of the patient and have reviewed the JÚNIOR Note. I performed a substantive portion of the visit including all aspects of the following. I personally saw the patient performed chart review, physical exam, reviewed labs, imaging (if obtained), and formulated a treatment and management plan. Patient's chest x-ray was read reviewed personally myself showed no evidence of obvious focal consolidation, showed pulmonary vascular congestion, no cardiomegaly. Radiologist agrees my interpretation. EKG with normal sinus rhythm, rate 96, intoxication, prolonged travel, first-degree AV block, no STEMI Patient ambulated here without significant hypoxia. BNP was only slightly elevated and her exam had no signs of volume overload. Patient's urinalysis was positive. Will send for culture. Will treat based on prior urine cultures. In this case ciprofloxacin suspect this is the etiology of her presentation. I had a long shared decision-making discussion about risk and benefits of discharge versus admission. Patient was with her daughters. The patient and daughters were alert, oriented to person place and time and they displayed capacity to make their own medical decisions and chose to be discharged home and lieu of admission to trial oral antibiotics. Daughter notes she lives right around the corner from her mother. She states that she can check on her regularly and if things change or worsen she is one half and bring her back to the emergency department. This note was generated with [employer] software. It may contain incorrect words, spelling, and punctuation that were not noted in review of the chart prior to signing. Lab Data Labs: Laboratory Results - last 24 hr 06/04/24 06/04/24 17:10 17:24 WBC 11.1 H RBC 5.76 H Hgb 13.2 Hct 42.8 MCV 74.3 L MCH 22.9 L MCHC 30.8 L RDW Std Deviation 49.4 H RDW Coeff of Brittany 19.4 H Plt Count 162 MPV 10.1 Immature Gran % (Auto) 0.400 Neut % (Auto) 84.0 H Lymph % (Auto) 7.9 L [place] % (Auto) 7.1 Eos % (Auto) 0.4 Baso % (Auto) 0.2 Absolute Neuts (auto) 9.3 H Absolute Lymphs (auto) 0.88 Nucleated RBC % 0 PT 27.9 H INR 2.5 Sodium 132 L Potassium 3.5 Chloride 99 Carbon Dioxide 27.0 Anion Gap 6 BUN 13 Creatinine 0.48 L Estim Creat Clear Calc 61.17 Est GFR (MDRD) Af Amer 166 Est GFR (MDRD) Non-Af 137 BUN/Creatinine Ratio 27.3 H Glucose 139 H Calcium 9.8 B-Natriuretic Peptide 128.2 H Urine Color Yellow Urine Clarity Clear Urine pH 6.5 Ur Specific [place] 1.005 Urine Protein 15 H Urine Glucose (UA) Normal Urine Ketones Negative Urine Occult Blood 250 H Urine Nitrite Negative Urine Bilirubin Negative Urine Urobilinogen Normal Ur Leukocyte Esterase 500 H Urine RBC 10-25 SEEN Urine WBC 50-100 SEEN Ur Squamous Epith Cells 0-5 SEEN Ur Renal Epithelial Cell 5-10 SEEN Urine Bacteria 3+ WBC Casts 0-5 SEEN Urine Mucus 1+ Radiography Chest X-Ray - ED: Read by ED Physician Diagnostic Testing: Clinical Impression(s) from Imaging Studies Chest X-Ray 06/04/24 16:44 IMPRESSION: Slight worsening in chronic lung changes. Recommend CT. Cardiomegaly with central pulmonary venous congestion. Electronically Signed: Mike Wall MD at 17:08 EST , Discharge Plan Triage Chief Complaint: Complaint ED Midlevel Provider: Danielle Goncalves ED Provider: Julito Venegas Dx/Rx/DC Orders Clinical Impression: Acute UTI, Acute URI, History of COPD Instructions: UTIs Understanding Prescriptions: New ciprofloxacin HCl [Cipro] 500 mg tablet 500 mg PO BID 7 Days Qty: 14 0RF ondansetron 4 mg tablet,disintegrating 4 mg PO Q8H PRN PRN (Reason: Nausea) Qty: 10 0RF No Action albuterol sulfate 90 mcg/actuation HFA aerosol inhaler 1 puff INHALATION Q6H PRN (Reason: bronchospasm) Qty: 8.5 3RF tolterodine 2 mg capsule,extended release 24hr 2 mg PO DAILY Qty: 90 3RF (DME) handicap placard See Rx Instructions .Route .MEDSUPPLY Qty: 1 0RF Rx Instructions: Duration 5 years, Diagnosis: Dyspnea ambrisentan 10 MG tablet 10 mg PO DAILY Oxygen, Home [Home Oxygen] 6 l NASAL CONT Rx Instructions: OF NOTE, PATIENT PRIOR OXYGEN SET-UP WITH 4-5L REST AND 6.5L ACTIVITY. During admission patient transitioned budesonide-formoterol 160-4.5 mcg/actuation HFA aerosol inhaler 2 puff INHALATION BID nystatin 100,000 unit/gram cream 1 applic topical PRN sildenafil (pulm.hypertension) 20 mg tablet 60 mg PO TID (DME) blood sugar diagnostic Strip See Rx Instructions .ROUTE .MEDSUPPLY Qty: 100 3RF Dose Instruction: As directed Rx Instructions: check blood sugar three times a day (DME) lancets [OneTouch UltraSoft Lancets] Mis See Rx Instructions .ROUTE .MEDSUPPLY Qty: 200 2RF Dose Instruction: As directed Rx Instructions: daily- check blood sugar three times a day Spiriva Respimat 1.25 mcg/actuation mist 2 puff inhalation DAILY Qty: 4 0RF omeprazole 40 mg capsule,delayed release(DR/EC) 40 mg PO DAILY Qty: 90 3RF spironolactone 50 mg tablet 50 mg PO DAILY Qty: 90 1RF metformin 500 mg tablet 500 mg PO BID Qty: 180 1RF pravastatin 40 mg tablet 40 mg PO QHS Qty: 90 3RF diltiazem HCl [Matzim [place]] 360 mg tablet extended release 24 hr 360 mg PO DAILY Qty: 90 1RF potassium chloride 20 mEq tablet extended release 20 meq PO TID Qty: 270 0RF sertraline 100 mg tablet 100 mg PO DAILY Qty: 90 1RF furosemide 40 mg tablet 40 mg PO BID Qty: 180 2RF warfarin 3 mg tablet 3 mg PO DAILY Qty: 60 1RF Protocol: Dose Management Condition: Thursday Dose/Route: 3 mg Instruction: 1 x 3 mg tablet Condition: Thursday Dose/Route: 3 mg Instruction: 1 x 3 mg tablet Condition: Thursday Dose/Route: 3 mg Instruction: 1 x 3 mg tablet Condition: Thursday Dose/Route: 3 mg Instruction: 1 x 3 mg tablet Condition: Dose/Route: 3 mg Instruction: 1 x 3 mg tablet Condition: Thursday Dose/Route: 3 mg Instruction: 1 x 3 mg tablet Condition: Thursday Dose/Route: 3 mg Instruction: 1 x 3 mg tablet Protocol Text: Adjustment Start Date: 05/22/22 INR Value: 4.3 INR Date: 05/21/22 Recheck Date: 05/28/22 Rx Instructions: 3mg po qd 5 days a week. alprazolam [Xanax] 0.5 mg tablet 0.5 mg PO BID PRN (Reason: anxiety) Qty: 60 0RF Primary Care Provider: Jose Miguel Pedraza Referrals: Jose Miguel Pedraza, [Primary Care Provider] - Activity Restrictions/Additional Instructions: You have a urinary tract infection. Please complete all of the antibiotics and I prescribed nausea medicine to take as needed. Return if you have any worsening symptoms such as fever, vomiting, if you are unable to keep down your medications, or if you develop confusion. Print Language: Indian Disposition Disposition: Home, Self Care Discharge Date/Time: 06/04/24 18:49
--- NOTE | 2024-06-04 16:44 | RAD_ITS ---
INDICATION: cough EXAMINATION/TECHNIQUE: X-RAY - XR Chest 2 Views COMPARISON: 03/22/2024. FINDINGS: Slight worsening in chronic lung changes. Central pulmonary venous congestion. Tortuous and calcified thoracic aorta. The heart is mildly enlarged. No pleural effusion or pneumothorax. Degenerative changes of the thoracic spine. RAD/Chest PA and Lateral IMPRESSION: Slight worsening in chronic lung changes. Recommend CT. Cardiomegaly with central pulmonary venous congestion. Electronically Signed: Mike Wall MD at 17:08 EST ,
--- NOTE | 2024-06-04 17:18 | EKG12_ITS ---
Test Reason : DYSP Blood Pressure : */* mmHG Vent. Rate : 96 BPM Atrial Rate : 96 BPM P-R Int : 256 ms QRS Dur : 86 ms QT Int : 354 ms P-R-T Axes : 62 -25 59 degrees QTcB Int : 447 ms Sinus rhythm with 1st degree A-V block Possible Left atrial enlargement Inferior infarct (cited on or before 20-Aug-2020) Abnormal ECG Confirmed by VICKI WALLACE, ASHLEY ([id number]), design editor MARIA GUADALUPE HERNANDEZ ([id number]) on 06/07/2024 6:13:18 AM Referred By: Confirmed By: ASHLEY COHEN MD
[2024-06-04 17:21] LABS: Color, Urine Yellow (Yellow); Glucose, Dipstick Normal (Normal); Ketone-Dipstick Negative (Negative); Leukocyte Esterase-Dipstick 500 /ul (Negative); Nitrite-Dipstick Negative (Negative); Occult Blood-Urine 250 /ul (Negative); Protein-Dipstick 15 mg/dl (Negative); Specific Gravity, Urine 1.005 (1.002-1.030); Urine Bilirubin Dipstick Negative (Negative); Urine Clarity Clear (Clear); Urine Urobilinogen Normal (Normal); Urine pH 6.5 (5.0 - 8.0)
[2024-06-04 17:35] LABS: Absolute Lymphocyte Count 0.88 X10^3/uL (0.83-4.51); Absolute Neutrophil Count 9.3 X10^3/uL (2.0-7.7); Basophil# 0.02 X10^3/uL; Basophil% 0.2 % (0-1); Eosinophil# 0.05 X10^3/uL; Eosinophils% 0.4 % (0-5); Hematocrit 42.8 % (37-47); Hemoglobin 13.2 g/dL (12.0-15.0); Lymphocyte # 0.88 X10^3/ul (0.83-4.51); Lymphocyte % 7.9 % (19-41); Mean Corp Hgb Conc 30.8 g/dL (32-36); Mean Corpuscular Hgb 22.9 pg (27.0-32.0); Mean Corpuscular Volume 74.3 fL (81-99); Mean Platelet Vol. 10.1 fl (6.2-12.0); Monocyte# 0.79 X10^3/uL; Monocyte% 7.1 % (0-10); NRBC Flagged by Analyzer 0 % (0-5); Neutrophil # 9.33 X10^3/uL (2.7-7.7); Platelet Count 162 K/mm3 (150-450); RBC Distribution Width CV 19.4 % (11.6-14.6); RBC Distribution Width SD 49.4 fl (35.1-43.9); Red Blood Count 5.76 M/mm3 (4.2-5.4); White Blood Count 11.1 K/mm3 (4.4-11.0)
[2024-06-04 17:35] LABS: Red Blood Cells-Urine 10-25 SEEN /hpf (0-5); Squamous Epithelial Cells - UA 0-5 SEEN /hpf (5-10); White Blood Cells 50-100 SEEN /hpf (0-5)
[2024-06-04 17:36] LABS: Bacteria 3+ /hpf (None Seen); Mucous, Urine 1+ /hpf (<or=2+); Renal Epithelial Cells 5-10 SEEN /hpf (0-5); White Cell Cast 0-5 SEEN /lpf (None Seen)
[2024-06-04 17:48] LABS: Anion Gap 6 (5-15); BUN 13 mg/dL (7-18); BUN/Creat Ratio 27.3 RATIO (10-20); Calcium,Total 9.8 mg/dL (8.5-10.1); Chloride 99 mmol/L (98-107); Creatinine, Serum 0.48 mg/dL (0.55-1.02); EST Glomerular Filtration Rate 137 mL/min (>60); Est Glom Filt Rate - Afr Amer 166 mL/min (>60); Estimated Creatinine Clearance 61.17 ml/min; Glucose 139 mg/dL (74-106); International Normalized Ratio 2.5; Potassium 3.5 mmol/L (3.5-5.1); Prothrombin Time (Protime)PT. 27.9 SECONDS (11.7-14.9); Sodium Level 132 mmol/L (136-145)
[2024-06-04 17:58] LABS: BNP,B-Type NATRIURETIC PEPTIDE 128.2 pg/mL (0-100)
[2024-06-04 18:00] VITALS: O2SAT 97
[2024-06-04 18:15] VITALS: PULSE 91; RESP 19; O2SAT 98
[2024-06-04] MEDS: Ondansetron ODT 4 MG Tablet PO (18:29)
[2024-06-04] MEDS: Ciprofloxacin 500 MG Tablet PO (18:29)
[2024-06-04 18:32] VITALS: BP 133/60; PULSE 91; RESP 19; TEMP 36.3; O2SAT 98
== END 2024-06-04 18:49 | disposition home or self-care (01) ==
PROVIDERS: Physician Assistant; Emergency Provider Emergency Medicine; PCP Family Medicine; Visit Provider Emergency Medicine
DX: N39.0 Urinary tract infection, site not specified (principal); J44.9 Chronic obstructive pulmonary disease, unspecified; I48.91 Unspecified atrial fibrillation; E11.9 Type 2 diabetes mellitus without complications; E78.5 Hyperlipidemia, unspecified; Z87.891 Personal history of nicotine dependence; J06.9 Acute upper respiratory infection, unspecified; Z86.73 Personal history of transient ischemic attack (TIA), and cerebral infarction without residual deficits; Z79.899 Other long term (current) drug therapy; Z79.84 Long term (current) use of oral hypoglycemic drugs; Z79.01 Long term (current) use of 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; F41.9 Anxiety disorder, unspecified; F32.A Depression, unspecified; Z90.49 Acquired absence of other specified parts of digestive tract
CPT/HCPCS: 71046; 80048; 81001; 83880; 85025; 85610; 87077; 87086; 87088; 87186; 87631; 93005; 99284; P9612

== ENCOUNTER 2024-06-07 15:58 | Outpatient (RCR) | payer MEDICARE, SELFPAY ==
[2024-04-10 02:07] VITALS: BMI 33.6
[2024-06-07 16:55] LABS: International Normalized Ratio 2.2; Prothrombin Time (Protime)PT. 24.7 SECONDS (11.7-14.9)
== END 2024-06-10 23:59 ==
LOC: BIMLAB 15:58
PROVIDERS: Family Provider Family Medicine; PCP Family Medicine; Referring Provider Family Medicine; Visit Provider Family Medicine
DX: Z79.01 Long term (current) use of 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 (principal)
CPT/HCPCS: 36415; 85610

== ENCOUNTER 2024-07-05 16:49 | Inpatient (IN) | payer MEDICARE, SELFPAY ==
[2024-07-05] VITALS (10 sets, daily range): BP systolic 141–159; BP diastolic 66–77; PULSE 109–119; RESP 15–20; TEMP 36.8–36.9; O2SAT 85–98; BMI 26.6
--- NOTE | 2024-07-05 16:58 | RAD_ITS ---
PROCEDURE: CHEST 1 VIEW (PORTABLE) REASON FOR EXAM: Shortness of breath TECHNIQUE: Frontal view of the chest. COMPARISON: 06/04/2024. FINDINGS: The heart size is normal. There are atherosclerotic calcifications of the thoracic aorta. Right perihilar lobe consolidation. Degenerative changes are identified within the thoracic spine. RAD/Chest 1 View (Portable) IMPRESSION: Right perihilar pneumonia. This has moderately improved from prior exam. Reading Location: [facility]
--- NOTE | 2024-07-05 16:59 | EKG12_ITS ---
Test Reason : DYSRHYTHMIA Blood Pressure : */* mmHG Vent. Rate : 110 BPM Atrial Rate : 110 BPM P-R Int : 216 ms QRS Dur : 78 ms QT Int : 316 ms P-R-T Axes : 62 -48 55 degrees QTcB Int : 427 ms Sinus tachycardia with 1st degree A-V block Biatrial enlargement Left axis deviation Cannot rule out Inferior infarct (cited on or before 20-Aug-2020) Anterior infarct , age undetermined Abnormal ECG Confirmed by Tyler Perez ([id number]), editor city MARIA GUADALUPE HERNANDEZ ([id number]) on 07/06/2024 8:24:05 AM Referred By: Confirmed By: Tyler Perez
[2024-07-05 18:52] LABS: Absolute Lymphocyte Count 0.84 X10^3/uL (0.83-4.51); Absolute Neutrophil Count 5.1 X10^3/uL (2.0-7.7); Basophil# 0.03 X10^3/uL; Basophil% 0.4 % (0-1); Eosinophil# 0.19 X10^3/uL; Eosinophils% 2.8 % (0-5); Hematocrit 53.1 % (37-47); Hemoglobin 16.1 g/dL (12.0-15.0); Lymphocyte # 0.84 X10^3/ul (0.83-4.51); Lymphocyte % 12.6 % (19-41); Mean Corp Hgb Conc 30.3 g/dL (32-36); Mean Corpuscular Hgb 22.5 pg (27.0-32.0); Mean Corpuscular Volume 74.3 fL (81-99); Monocyte# 0.55 X10^3/uL; Monocyte% 8.2 % (0-10); NRBC Flagged by Analyzer 0 % (0-5); Neutrophil # 5.05 X10^3/uL (2.7-7.7); Neutrophil % 75.9 % (47-70); Platelet Count 160 K/mm3 (150-450); RBC Distribution Width CV 19.1 % (11.6-14.6); RBC Distribution Width SD 46.6 fl (35.1-43.9); Red Blood Count 7.15 M/mm3 (4.2-5.4); White Blood Count 6.7 K/mm3 (4.4-11.0)
--- NOTE | 2024-07-05 19:16 | ED.VIS.DYS ---
HPI <SAMMY Shetty - Last Filed: 07/05/24 22:09> History of Present Illness Chief Complaint: Shortness of Breath Narrative Narrative: 69-year-old female with past medical history of A-fib, DVT/PE on warfarin, DM2, pulmonary hypertension, COPD on 5 L at baseline presents with 2-week history of productive cough and dyspnea. She has lost her voice so her daughters relay the history. They state her pulse ox has been running lower. Last week she was at an appointment and it was 88% but they were able to turn her oxygen up to achieve above 90%. She is prescribed 4 L at rest and 6 L with activity but just leaves it at 5 L all the time. She wears a mask due to nasal septal deviation. She denies history of asthma or COPD. She does not smoke. Today she had an appointment with her primary care doctor who advised she come to the ED for evaluation. [facility] <SAMMY Shetty - Last Filed: 07/05/24 22:09> [facility] Medical History Diabetes On home oxygen therapy DVT (deep venous thrombosis) TIA (transient ischemic attack) Panic disorder with agoraphobia Osteoporosis Former smoker Pulmonary embolism Urinary tract infection Primary pulmonary hypertension (PPH) COPD (chronic obstructive pulmonary disease) Claustrophobia Anxiety Depression TIA (transient ischemic attack) Type 2 diabetes mellitus Atrial fibrillation Lupus anticoagulant disorder Pulmonary arterial hypertension Home Medications ?Medication ?Instructions ?Recorded ?Last Taken ?Type ambrisentan 10 mg tablet 10 mg PO DAILY pulmonary 04/21/16 07/05/24 09:30 History hypertension albuterol sulfate 90 mcg/actuation 1 puff inhalation Q6H PRN 08/28/21 07/05/24 Rx aerosol inhaler bronchospasm #8.5 grams blood sugar diagnostic #100 ea 10/09/21 Unknown Rx lancets (OneTouch UltraSoft #200 ea 10/09/21 Unknown Rx Lancets) tiotropium bromide 1.25 2 puff inhalation DAILY #4 grams 12/03/21 Unknown Rx mcg/actuation mist for inhalation (Spiriva Respimat) Oxygen, Home [Home Oxygen] 6 l NASAL CONT Oxygen 05/15/23 07/06/24 History omeprazole 40 mg capsule,delayed 40 mg PO DAILY #90 caps 07/22/23 07/05/24 09:02 Rx release budesonide-formoterol HFA 160 2 puff inhalation BID SoB 09/10/23 Unknown History mcg-4.5 mcg/actuation aerosol inhaler nystatin 100,000 unit/gram topical 1 applic topical PRN Rash 09/10/23 Unknown History cream metformin 500 mg tablet 500 mg PO BID #180 tabs 09/16/23 07/04/24 22:01 Rx 1,000 mg pravastatin 40 mg tablet 40 mg PO QHS #90 tabs 09/16/23 07/04/24 22:00 Rx diltiazem HCl 360 mg 360 mg PO DAILY heart #90 tabs 11/20/23 07/04/24 22:00 Rx tablet,extended release 24 hr (Matzim [place]) handicap placard #1 ea 12/29/23 Unknown Rx sertraline 100 mg tablet 100 mg PO DAILY #90 tabs 03/02/24 07/05/24 09:00 Rx warfarin 3 mg tablet 3 mg PO DAILY #60 tabs 06/01/24 07/04/24 16:30 Rx alprazolam 0.5 mg tablet (Xanax) 0.5 mg PO BID PRN anxiety #60 tabs 06/03/24 Unknown Rx ondansetron 4 mg disintegrating 4 mg PO Q8H PRN PRN Nausea #10 tabs 06/04/24 Unknown Rx tablet sildenafil (pulm.hypertension) 20 60 mg PO TID pulmonary hypertension 06/04/24 07/05/24 09:00 History mg tablet ciprofloxacin HCl 0.3 % eye drops See Rx Instructions ophthalmic 06/07/24 07/01/24 Rx (eye) .COMPLEX #2.5 mL furosemide 20 mg tablet 20 mg PO BID #180 tabs 06/07/24 07/05/24 09:30 Rx INR home diagnositic machine #1 ea 06/15/24 Unknown Rx potassium chloride 20 mEq 20 meq PO TID #270 tabs 06/16/24 07/05/24 09:02 Rx tablet,extended release spironolactone 50 mg tablet 50 mg PO DAILY #90 tabs 06/16/24 07/05/24 09:00 Rx tolterodine 2 mg capsule,extended 2 mg PO DAILY #90 caps 07/05/24 07/05/24 09:00 Rx release 24 hr Allergy/AdvReac Type Severity Reaction Status Date / Time doxycycline AdvReac Intermediate Other Verified 07/05/24 16:49 prednisone AdvReac Mild Other Verified 07/05/24 16:49 nitroglycerin AdvReac Other Verified 07/05/24 16:49 Family History Mother COPD (chronic obstructive pulmonary disease) Cancer melanoma Father Heart disease Alcoholism Grandmother Cancer Grandfather Parkinsons disease Surgical History History of embolic filter insertion H/O endoscopy H/O colonoscopy History of placement of ear tubes history of bunion surgery History of tonsillectomy History of cholecystectomy Social History household members: none Smoking Status: Former smoker Tobacco: How many years used: 8 how long ago did patient quit smokin years alcohol intake: never substance use type: does not use what type of physical activity do you participate in: none ROS <SAMMY Shetty - Last Filed: 07/05/24 22:09> ROS ED ROS Narrative Constitutional: Negative for fever, chills. CVS: Negative for palpitations, chest pain. Respiratory: Positive for shortness of breath, cough. GI: Negative for abdominal pain, nausea, vomiting. EXAM <SAMMY Shetty - Last Filed: 07/05/24 22:09> Physical Exam Narrative Exam Narrative: CONST: Patient sitting in no acute distress. EYES: Normal inspection. ENT: On Ventimask at 8 L. NECK: Normal inspection. RESP: Mild respiratory distress, diminished with mild diffuse expiratory wheezing. CVS: Tachycardic with rhythm, no murmur, no gallop. SKIN: Color normal, no rash, warm, dry, intact. EXTREMITIES: Normal appearance, no pedal edema. NEURO: Alert and answering questions appropriately. PSYCH: Normal affect. Const Vital Signs: 07/05/24 16:50 07/05/24 16:58 07/05/24 19:18 Temperature 98.4 F Temperature Source Oral Pulse Rate 118 H Respiratory Rate 18 18 Respiratory Effort Respiratory Depth Respiratory Pattern Blood Pressure 141/66 H Blood Pressure Mean 91 Pulse Ox 85 97 95 Oxygen Delivery Method Nasal Cannula Venturi Mask Venturi Mask Oxygen Flow Rate (L/min) 4 9 8 Fraction of Inspired Oxygen (FIO2) 40 07/05/24 19:18 07/05/24 19:37 07/05/24 20:09 Temperature 98.5 F Temperature Source Temporal Pulse Rate 119 H 111 H 112 H Respiratory Rate 20 H 18 20 H Respiratory Effort Respiratory Depth Respiratory Pattern Normal Blood Pressure 142/66 H 142/66 H Blood Pressure Mean 91 91 Pulse Ox 96 96 Oxygen Delivery Method Venturi Mask Venturi Mask Oxygen Flow Rate (L/min) 9 Fraction of Inspired Oxygen (FIO2) 07/05/24 20:15 07/05/24 20:17 07/05/24 21:00 Temperature 98.5 F 98.2 F Temperature Source Temporal Pulse Rate 111 H 114 H Respiratory Rate 18 19 H Respiratory Effort Short of Breath Respiratory Depth Normal Respiratory Pattern Normal Blood Pressure 159/72 H 151/77 H Blood Pressure Mean 101 101 Pulse Ox 98 93 Oxygen Delivery Method Venturi Mask Venturi Mask Oxygen Flow Rate (L/min) 9 Fraction of Inspired Oxygen (FIO2) 07/05/24 22:00 07/05/24 23:00 Temperature 98.2 F 98.5 F Temperature Source Temporal Temporal Pulse Rate 112 H 109 H Respiratory Rate 15 20 H Respiratory Effort Respiratory Depth Respiratory Pattern Blood Pressure 151/77 H 154/71 H Blood Pressure Mean 101 98 Pulse Ox 93 96 Oxygen Delivery Method Venturi Mask Venturi Mask Oxygen Flow Rate (L/min) Fraction of Inspired Oxygen (FIO2) <Dr. Eren Pinzon, DO - Last Filed: 07/06/24 03:02> Physical Exam Const Vital Signs: 07/05/24 16:50 07/05/24 16:58 07/05/24 19:18 Temperature 98.4 F Temperature Source Oral Pulse Rate 118 H Respiratory Rate 18 18 Respiratory Effort Respiratory Depth Respiratory Pattern Blood Pressure 141/66 H Blood Pressure Mean 91 Pulse Ox 85 97 95 Oxygen Delivery Method Nasal Cannula Venturi Mask Venturi Mask Oxygen Flow Rate (L/min) 4 9 8 Fraction of Inspired Oxygen (FIO2) 40 07/05/24 19:18 07/05/24 19:37 07/05/24 20:09 Temperature 98.5 F Temperature Source Temporal Pulse Rate 119 H 111 H 112 H Respiratory Rate 20 H 18 20 H Respiratory Effort Respiratory Depth Respiratory Pattern Normal Blood Pressure 142/66 H 142/66 H Blood Pressure Mean 91 91 Pulse Ox 96 96 Oxygen Delivery Method Venturi Mask Venturi Mask Oxygen Flow Rate (L/min) 9 Fraction of Inspired Oxygen (FIO2) 07/05/24 20:15 07/05/24 20:17 07/05/24 21:00 Temperature 98.5 F 98.2 F Temperature Source Temporal Pulse Rate 111 H 114 H Respiratory Rate 18 19 H Respiratory Effort Short of Breath Respiratory Depth Normal Respiratory Pattern Normal Blood Pressure 159/72 H 151/77 H Blood Pressure Mean 101 101 Pulse Ox 98 93 Oxygen Delivery Method Venturi Mask Venturi Mask Oxygen Flow Rate (L/min) 9 Fraction of Inspired Oxygen (FIO2) 07/05/24 22:00 07/05/24 23:00 Temperature 98.2 F 98.5 F Temperature Source Temporal Temporal Pulse Rate 112 H 109 H Respiratory Rate 15 20 H Respiratory Effort Respiratory Depth Respiratory Pattern Blood Pressure 151/77 H 154/71 H Blood Pressure Mean 101 98 Pulse Ox 93 96 Oxygen Delivery Method Venturi Mask Venturi Mask Oxygen Flow Rate (L/min) Fraction of Inspired Oxygen (FIO2) [facility] <SAMMY Shetty - Last Filed: 07/05/24 22:09> [facility] Narrative Medical decision making narrative: 69-year-old female has had 2 weeks of cough and dyspnea. She wears chronic 5 L of oxygen at home for COPD and pulmonary hypertension. She wears a mask due to the right nasal obstruction. She is awake and alert. BP 141/66, HR 118, and 85% on 4 L nasal cannula. She was placed on a Venturi mask at 9 L at FiO2 of 40. She has coarse lung sounds and slight wheezing and was ordered a DuoNeb. Labs show WBC of 6.7. Hgb 16.1. Platelets 160. Chemistry and renal function are unremarkable. CXR shows right perihilar pneumonia. It was read as improved from prior exam from 06/04/2024 but that chest x-ray did not mention an infiltrate. Viral swab is negative for COVID/flu/RSV. I ordered a CTA to further assess. There is limited assessment due to streak artifact but the radiologist called and is suspicious for bilateral lower lobe, segmental and subsegmental small PEs. Her INR is 3.4 so I do not think she needs acute anticoagulation. This scan may need repeated. ABG is normal. Clinically I think she has pneumonia and she was given IV Rocephin and Zithromax after the chest x-ray read. Plan will be to admit the patient to the hospitalist due to acute on chronic respiratory failure. Lab Data Attestation: I reviewed the patient's lab results. Labs: Laboratory Results - last 24 hr 07/05/24 07/05/24 07/05/24 18:40 18:42 21:00 WBC 6.7 RBC 7.15 H Hgb 16.1 H Hct 53.1 H MCV 74.3 L MCH 22.5 L MCHC 30.3 L RDW Std Deviation 46.6 H RDW Coeff of Brittany 19.1 H Plt Count 160 MPV TNP Immature Gran % (Auto) 0.100 Neut % (Auto) 75.9 H Lymph % (Auto) 12.6 L Scott % (Auto) 8.2 Eos % (Auto) 2.8 Baso % (Auto) 0.4 Absolute Neuts (auto) 5.1 Absolute Lymphs (auto) 0.84 Nucleated RBC % 0 PT 35.2 H INR 3.4 Sodium 136 Potassium 4.3 Anion Gap 15 BUN 8 Creatinine 0.5 L Est GFR (MDRD) Non-Af 102 BUN/Creatinine Ratio 15.7 Glucose 133 H Lactic Acid 1.0 Calcium 10.3 Troponin T High Sens 13 ABG Data ABG results: ABG 07/05/24 21:00 Specimen Type ART Sample Site L Radial pH 7.39 Bicarbonate Actual 26.2 H Total CO2 28 Base Excess 1 O2 Saturation 94 L O2 % 40.0 ABG pCO2 43.1 ABG pO2 70 L Doc Test Positive O2 Delivery Device Venti Mask Vent Mode Not entered Radiography Diagnostic Testing: Clinical Impression(s) from Imaging Studies Chest X-Ray 07/05/24 16:58 IMPRESSION: Right perihilar pneumonia. This has moderately improved from prior exam. Reading Location: [facility] Chest CTA 07/05/24 20:15 IMPRESSION: Limited assessment due to streak artifact but suspicion for middle and bilateral lower lobe lobar, segmental, and subsegmental small pulmonary emboli. Mild diffuse bronchiectasis and bronchial wall thickening. Critical results were communicated to the ordering provider. One or more dose reduction techniques were used (e.g., Automated exposure control, adjustment of the mA and/or kV according to patient size, use of iterative reconstruction technique). Reading Location: [id number] <Dr. Eren Pinzon, DO - Last Filed: 07/06/24 03:02> [facility] Narrative Medical decision making narrative: 69-year-old female has had 2 weeks of cough and dyspnea. She wears chronic 5 L of oxygen at home for COPD and pulmonary hypertension. She wears a mask due to the right nasal obstruction. She is awake and alert. BP 141/66, HR 118, and 85% on 4 L nasal cannula. She was placed on a Venturi mask at 9 L at FiO2 of 40. She has coarse lung sounds and slight wheezing and was ordered a DuoNeb. Labs show WBC of 6.7. Hgb 16.1. Platelets 160. Chemistry and renal function are unremarkable. CXR shows right perihilar pneumonia. It was read as improved from prior exam from 06/04/2024 but that chest x-ray did not mention an infiltrate. Viral swab is negative for COVID/flu/RSV. I ordered a CTA to further assess. There is limited assessment due to streak artifact but the radiologist called and is suspicious for bilateral lower lobe, segmental and subsegmental small PEs. Her INR is 3.4 so I do not think she needs acute anticoagulation. This scan may need repeated. ABG is normal. Clinically I think she has pneumonia and she was given IV Rocephin and Zithromax after the chest x-ray read. Plan will be to admit the patient to the hospitalist due to acute on chronic respiratory failure. Supervisory Physician Note Patient was seen and examined with the Advanced Practice Provider. Nursing notes and vital signs have been reviewed. Pertinent old records have been reviewed. I agree with the essential elements of the JÚNIOR's history, physical exam, assessment, and plan. The differential diagnosis and management options were discussed with the JÚNIOR. I participated in determining and agree with the management, procedures, final impression and disposition as documented. See changes noted by me. Please see addendum or separate note for any additional details. 69-year-old female with history of pulmonary hypertension, PE/DVT on warfarin, COPD on 5 L at baseline and multiple comorbidities presents for evaluation of worsening shortness of breath and productive cough. Was referred to the emergency department by PCP. Denies any fever, chills, chest pain, abdominal pain, nausea, vomiting. Gen: A&O x3, NAD Head: Normocephalic, atraumatic Eyes: No sclera icterus, conjunctiva clear ENT: Moist mucous membranes Neck: Trachea midline, No JVD CV: Tachycardic, regular rhythm, no murmurs, no peripheral edema Resp: Lungs coarse bilaterally with mild diffuse expiratory wheezing, mildly dyspneic when speaking, on 9 L Ventimask GI: Abd soft, non-distended, non-tender, no r/r/g Musc: Full ROM, no deformity Skin: Warm, dry Neuro: Alert, oriented, grossly intact, sensation intact Solu-Medrol, DuoNebs, NS bolus ordered for symptoms. Respiratory workup ordered including CTA chest. CBC without leukocytosis. Patient has hemoconcentration. INR 3.4. ABG with normal pH and without hypercapnia or hypoxia. BNP relatively unremarkable. Lactic acid unremarkable. Troponin unremarkable. Chest x-ray concerning for right pneumonia. Rocephin and azithromycin ordered. CTA chest is limited secondary to streak artifact but suspicious for middle and bilateral lower lobe, segmental, subsegmental small PE. Mild diffuse bronchiectasis and bronchial wall thickening. Patient has INR of 3.4 therefore no further anticoagulation given at this time. Patient and family updated of all the results and the plan for admission. Patient was discussed with Dr. Briggs who accepted admission. Impression: 1. COPD exacerbation 2. Acute on chronic respiratory insufficiency 3. Possible subsegmental PEs despite therapeutic INR on warfarin 4. Possible pneumonia Lab Data Labs: Laboratory Results - last 24 hr 07/05/24 07/05/24 07/05/24 18:40 18:42 21:00 WBC 6.7 RBC 7.15 H Hgb 16.1 H Hct 53.1 H MCV 74.3 L MCH 22.5 L MCHC 30.3 L RDW Std Deviation 46.6 H RDW Coeff of Brittany 19.1 H Plt Count 160 MPV TNP Immature Gran % (Auto) 0.100 Neut % (Auto) 75.9 H Lymph % (Auto) 12.6 L Scott % (Auto) 8.2 Eos % (Auto) 2.8 Baso % (Auto) 0.4 Absolute Neuts (auto) 5.1 Absolute Lymphs (auto) 0.84 Nucleated RBC % 0 PT 35.2 H INR 3.4 Sodium 136 Potassium 4.3 Anion Gap 15 BUN 8 Creatinine 0.5 L Est GFR (MDRD) Non-Af 102 BUN/Creatinine Ratio 15.7 Glucose 133 H Lactic Acid 1.0 Calcium 10.3 Troponin T High Sens 13 ABG Data ABG results: ABG 07/05/24 21:00 Specimen Type ART Sample Site L Radial pH 7.39 Bicarbonate Actual 26.2 H Total CO2 28 Base Excess 1 O2 Saturation 94 L O2 % 40.0 ABG pCO2 43.1 ABG pO2 70 L Doc Test Positive O2 Delivery Device Venti Mask Vent Mode Not entered Radiography Diagnostic Testing: Clinical Impression(s) from Imaging Studies Chest X-Ray 07/05/24 16:58 IMPRESSION: Right perihilar pneumonia. This has moderately improved from prior exam. Reading Location: [facility] Chest CTA 07/05/24 20:15 IMPRESSION: Limited assessment due to streak artifact but suspicion for middle and bilateral lower lobe lobar, segmental, and subsegmental small pulmonary emboli. Mild diffuse bronchiectasis and bronchial wall thickening. Critical results were communicated to the ordering provider. One or more dose reduction techniques were used (e.g., Automated exposure control, adjustment of the mA and/or kV according to patient size, use of iterative reconstruction technique). Reading Location: [id number] Discharge Plan Dx/Rx/DC Orders Clinical Impression: Acute hypoxic respiratory failure, COPD (chronic obstructive pulmonary disease), Pulmonary emboli, Chronic anticoagulation Disposition Disposition: Acute Care [facility] Discharge Date/Time: 07/06/24 00:14
[2024-07-05] MEDS: Ipratropium/Albuterol Sulfate 3 ML AMPUL.NEB INHALATION (19:18)
[2024-07-05 20:08] LABS: Anion Gap 15 (5-15); BUN 8 mg/dL (4-19); BUN/Creat Ratio 15.7 RATIO (10-20); Calcium 10.3 mg/dL (7.6-11.0); Carbon Dioxide 21.1 mmol/L (22.0-29.0); Chloride 101 mmol/L (96-108); Creatinine, Serum 0.5 mg/dL (0.6-1.0); EST Glomerular Filtration Rate 102 (>60); Glucose 133 mg/dL (70-99); Potassium 4.3 mmol/L (3.3-5.1); Sodium Level 136 mmol/L (133-145)
--- NOTE | 2024-07-05 20:15 | CT_ITS ---
PROCEDURE: CTA CHEST W/WO CONTRAST REASON FOR EXAM: Cough. TECHNIQUE: CTA imaging of the chest with intravenous contrast. 3D reconstructions. CONTRAST: 75 mL of Isovue 370. COMPARISON: None. FINDINGS: Hardware: None. Lymph nodes: No mediastinal hilar or axillary lymphadenopathy. Heart: Normal heart size. No pericardial effusion. RV/LV Diameter Ratio: N/A Thoracic Aorta: No thoracic aortic aneurysm or dissection. Pulmonary Vessels: Streak artifact moderately limits assessment. Suspicion for hypodense filling defects within the right middle and bilateral lower lobar segmental, and subsegmental branches. Dilated pulmonary artery which may suggest pulmonary hypertension. Most Proximal Level of Embolus (if embolus present): Lobar Lungs and Airways: Mild diffuse bronchiectasis. Bronchial wall thickening. Lingular and middle lobe scarring. Pleura: No pleural effusion. No pneumothorax. Upper Abdomen: Visualized portions of the upper abdominal viscera are unremarkable. Bones: Bone windows are unremarkable. CT/CTA Chest W/WO Contrast IMPRESSION: Limited assessment due to streak artifact but suspicion for middle and bilatera l lower lobe lobar, segmental, and subsegmental small pulmonary emboli. Mild diffuse bronchiectasis and bronchial wall thickening. Critical results were communicated to the ordering provider. One or more dose reduction techniques were used (e.g., Automated exposure contr ol, adjustment of the mA and/or kV according to patient size, use of iterative reconstruction technique). Reading Location: [place] [id number]
[2024-07-05 21:03] LABS: Allen Test Positive; Base Excess 1 mmol/L (-2 to +2); Bicarbonate 26.2 mmol/L (22-26); Blood Gas Specimen Type ART; Mode Not entered; O2 Delivery Device Venti Mask; PO2 70 mmHG (75-100); SITE L Radial; SO2 94 % (95-99); Total Carbon Dioxide 28 mmol/L; pCO2 43.1 mmHg (35-45); pH 7.39 (7.35-7.45)
[2024-07-05] MEDS: 0.9% Normal Saline (500mL Bag) 500 ML 999 ML IV (21:10)
[2024-07-05] MEDS: Ceftriaxone 1 GM/50 ML BAG IV (21:12)
[2024-07-05 21:32] LABS: International Normalized Ratio 3.4; Prothrombin Time (Protime)PT. 35.2 SECONDS (11.7-14.9)
[2024-07-05] MEDS: MethylPREDNISolone 125 MG/2 ML Vial IV (21:54)
[2024-07-05 22:07] LABS: Troponin T High Sensitivity 13 ng/L (<=14)
[2024-07-05] MEDS: Azithromycin 500 MG in 0.9% Normal Saline (250mL Bag) 250 ML 255 MG IV (22:28)
--- NOTE | 2024-07-05 22:50 | PCM.HP.STD ---
[facility] - General General Date of Admission: 07/05/24 Date of Service: 07/05/24 Chief Complaint: SOB. [facility] Narrative AGUSTINA ULGO, is a 69 F with a past medical history of essential hypertension; on furosemide, hyperlipidemia; on pravastatin, overweight; with BMI of 26.6 this admission, chronic atrial fibrillation; on diltiazem and warfarin, history of Lupus anticoagulant/antiphospholipid disorder, former tobacco abuse (quit ~1989); with patient denying history of asthma/COPD, chronic hypoxic respiratory failure on ~5-6L VM continuous (with patient not able to use NC due to deviated septum), history of primary pulmonary hypertension; on ambrisentan and sildenafil TID followed at [facility], DM-2; of unknown control on metformin, history of TIA (2012), history of embolic filter insertion, depression and anxiety with panic disorder and claustrophobia; on sertraline and prn alprazolam BID, history or panendoscopy, history of cholecystectomy, overactive bladder; on tolterodine, history of GERD; on omeprazole and OA who presents to [facility] ER complaining of SOB. Ms. Lugo reports her symptoms began approximately 2 weeks prior to admission with the gradual-onset of CHAVES that progressed to SOB at rest. She also admits to nonproductive cough, wheezing and recently losing her voice due to laryngitis so her family helped to augment the history to the ER provider. They then noted her oxygen saturation dropped to 88% so they decided to see her PCP earlier today and they were then instructed to come in to the ER for further evaluation and treatment. There was no report of fever, chills, nausea, vomiting, diarrhea, constipation, abdominal pain, chest pain or headache. In the ER she was noted to have a CTA of the chest suspicious for subsegmental small PE's with significant artifact plus mild diffuse bronchiectasis with bronchial wall thickening and she was then diagnosed with AE COPD complicated by possible subsegmental PE's in spite of a therapeutic INR of 3.4 present on admission compounded by clinical evidence of Gbhxi-nl-Lkmhrsj Respiratory Insufficiency with patient requiring 9L VM and she was then admitted to the general medical floor for ongoing care for a stay that is expected to extend beyond 2 midnights. [facility] Medical History Diabetes On home oxygen therapy DVT (deep venous thrombosis) TIA (transient ischemic attack) Panic disorder with agoraphobia Osteoporosis Former smoker Pulmonary embolism Urinary tract infection Primary pulmonary hypertension (PPH) COPD (chronic obstructive pulmonary disease) Claustrophobia Anxiety Depression TIA (transient ischemic attack) Type 2 diabetes mellitus Atrial fibrillation Lupus anticoagulant disorder Pulmonary arterial hypertension Home Medications ?Medication ?Instructions ?Recorded ?Last Taken ?Type ambrisentan 10 mg tablet 10 mg PO DAILY pulmonary 04/21/16 07/05/24 09:30 History hypertension albuterol sulfate 90 mcg/actuation 1 puff inhalation Q6H PRN 08/28/21 07/05/24 Rx aerosol inhaler bronchospasm #8.5 grams blood sugar diagnostic #100 ea 10/09/21 Unknown Rx lancets (OneTouch UltraSoft #200 ea 10/09/21 Unknown Rx Lancets) tiotropium bromide 1.25 2 puff inhalation DAILY #4 grams 12/03/21 Unknown Rx mcg/actuation mist for inhalation (Spiriva Respimat) Oxygen, Home [Home Oxygen] 6 l NASAL CONT Oxygen 05/15/23 07/06/24 History omeprazole 40 mg capsule,delayed 40 mg PO DAILY #90 caps 07/22/23 07/05/24 09:02 Rx release budesonide-formoterol HFA 160 2 puff inhalation BID SoB 09/10/23 Unknown History mcg-4.5 mcg/actuation aerosol inhaler nystatin 100,000 unit/gram topical 1 applic topical PRN Rash 09/10/23 Unknown History cream metformin 500 mg tablet 500 mg PO BID #180 tabs 09/16/23 07/04/24 22:01 Rx 1,000 mg pravastatin 40 mg tablet 40 mg PO QHS #90 tabs 09/16/23 07/04/24 22:00 Rx diltiazem HCl 360 mg 360 mg PO DAILY heart #90 tabs 11/20/23 07/04/24 22:00 Rx tablet,extended release 24 hr (Mat[place]im [place]) handicap placard #1 ea 12/29/23 Unknown Rx sertraline 100 mg tablet 100 mg PO DAILY #90 tabs 03/02/24 07/05/24 09:00 Rx warfarin 3 mg tablet 3 mg PO DAILY #60 tabs 06/01/24 07/04/24 16:30 Rx alprazolam 0.5 mg tablet (Xanax) 0.5 mg PO BID PRN anxiety #60 tabs 06/03/24 Unknown Rx ondansetron 4 mg disintegrating 4 mg PO Q8H PRN PRN Nausea #10 tabs 06/04/24 Unknown Rx tablet sildenafil (pulm.hypertension) 20 60 mg PO TID pulmonary hypertension 06/04/24 07/05/24 09:00 History mg tablet ciprofloxacin HCl 0.3 % eye drops See Rx Instructions ophthalmic 06/07/24 07/01/24 Rx (eye) .COMPLEX #2.5 mL furosemide 20 mg tablet 20 mg PO BID #180 tabs 06/07/24 07/05/24 09:30 Rx INR home diagnositic machine #1 ea 06/15/24 Unknown Rx potassium chloride 20 mEq 20 meq PO TID #270 tabs 06/16/24 07/05/24 09:02 Rx tablet,extended release spironolactone 50 mg tablet 50 mg PO DAILY #90 tabs 06/16/24 07/05/24 09:00 Rx tolterodine 2 mg capsule,extended 2 mg PO DAILY #90 caps 07/05/24 07/05/24 09:00 Rx release 24 hr Allergy/AdvReac Type Severity Reaction Status Date / Time doxycycline AdvReac Intermediate Other Verified 07/05/24 16:49 prednisone AdvReac Mild Other Verified 07/05/24 16:49 nitroglycerin AdvReac Other Verified 07/05/24 16:49 Family History Mother COPD (chronic obstructive pulmonary disease) Cancer melanoma Father Heart disease Alcoholism Grandmother Cancer Grandfather Parkinsons disease Surgical History History of embolic filter insertion H/O endoscopy H/O colonoscopy History of placement of ear tubes history of bunion surgery History of tonsillectomy History of cholecystectomy Social History household members: none Smoking Status: Former smoker Tobacco: How many years used: 8 how long ago did patient quit smokin years alcohol intake: never substance use type: does not use what type of physical activity do you participate in: none ROS ROS Narrative Review of Systems: Constitutional: Patient denies fever or chills. Eyes: Patient denies changes in vision or discharge from eyes. ENT: Patient denies runny nose, sore throat or ear pain. Resp: Patient admit to CHAVES that progressed to SOB at rest with wheezing and nonproductive cough. CV: Patient denies chest pain, palpitations or heart racing. GI: Patient denies abdominal pain, nausea, vomiting, diarrhea or constipation. : Patient denies dysuria or hematuria. MSK: Patient denies arthralgias or myalgias. Skin: Patient denies rash. Psych: Patient denies symptoms of uncontrolled depression or anxiety. Neuro: Patient denies headache, paresthesias or focal neurologic deficits. Allergy: Patient denies lip swelling, tongue swelling or urticaria. Hematology: Patient denies easy bleeding or easy bruisability. Endocrinology: Patient denies polyuria, polydipsia or polyphagia. 14 point ROS otherwise negative except for positives noted above in HPI. Vital Signs Vital Signs Vital Signs: 07/05/24 16:50 07/05/24 16:58 07/05/24 19:18 Temperature 98.4 F Temperature Source Oral Pulse Rate 118 H Respiratory Rate 18 18 Respiratory Effort Respiratory Depth Respiratory Pattern Blood Pressure 141/66 H Blood Pressure Mean 91 Pulse Ox 85 97 95 Oxygen Delivery Method Nasal Cannula Venturi Mask Venturi Mask Oxygen Flow Rate (L/min) 4 9 8 Fraction of Inspired Oxygen (FIO2) 40 07/05/24 19:18 07/05/24 19:37 07/05/24 20:09 Temperature 98.5 F Temperature Source Temporal Pulse Rate 119 H 111 H 112 H Respiratory Rate 20 H 18 20 H Respiratory Effort Respiratory Depth Respiratory Pattern Normal Blood Pressure 142/66 H 142/66 H Blood Pressure Mean 91 91 Pulse Ox 96 96 Oxygen Delivery Method Venturi Mask Venturi Mask Oxygen Flow Rate (L/min) 9 Fraction of Inspired Oxygen (FIO2) 07/05/24 20:15 07/05/24 20:17 07/05/24 21:00 Temperature 98.5 F 98.2 F Temperature Source Temporal Pulse Rate 111 H 114 H Respiratory Rate 18 19 H Respiratory Effort Short of Breath Respiratory Depth Normal Respiratory Pattern Normal Blood Pressure 159/72 H 151/77 H Blood Pressure Mean 101 101 Pulse Ox 98 93 Oxygen Delivery Method Venturi Mask Venturi Mask Oxygen Flow Rate (L/min) 9 Fraction of Inspired Oxygen (FIO2) 07/05/24 22:00 Temperature 98.2 F Temperature Source Temporal Pulse Rate 112 H Respiratory Rate 15 Respiratory Effort Respiratory Depth Respiratory Pattern Blood Pressure 151/77 H Blood Pressure Mean 101 Pulse Ox 93 Oxygen Delivery Method Venturi Mask Oxygen Flow Rate (L/min) Fraction of Inspired Oxygen (FIO2) Weight Weight: 145 lb 8.081 oz Body Mass Index (BMI) 26.6 Physical Exam Const alert, oriented x3, no apparent distress and average body habitus Constitutional Narrative: Patient appears chronically ill with 'pink-puffer' phenotype. General Appearance: cooperative HEENT normocephalic, head/scalp atraumatic, hearing grossly normal bilaterally and moist oral mucous membranes HEENT Narrative: Patient has a 'whisper quiet' voice. Eyes PERRL, EOMs intact bilaterally and conjunctivae normal Neck no lymphadenopathy, supple and no JVD Resp Resp Narrative: Diminished breath sounds throughout with diffuse expiratory wheezes noted. Auscultation: wheezes Cardio regular rate and regular rhythm Cardio Narrative: Persistent tachycardia of ~110 bpm noted. GI normal to inspection, nondistended, normoactive bowel sounds, soft to palpation, non-tender and non-distended Extremity normal to inspection, full ROM and no clubbing, cyanosis or edema Skin Skin Narrative: Patient has no evidence of rash. Neuro oriented x3, CN's II-XII intact bilaterally, moves all extremities and no focal motor deficits Sensorium / Orientation: awake, alert, oriented to person, oriented to place and oriented to time Speech: speech normal Psych affect normal Results Medical Records Data Attestation: I reviewed the patient's medical records Lab / Micro Data Attestation: I reviewed the patient's lab results. 07/05/24 18:42 07/05/24 18:42 Labs: Laboratory Results - last 24 hr 07/05/24 18:40: PT 35.2 H, INR 3.4 07/05/24 18:42: WBC 6.7, RBC 7.15 H, Hgb 16.1 H, Hct 53.1 H, MCV 74.3 L, MCH 22.5 L, MCHC 30.3 L, RDW Std Deviation 46.6 H, RDW Coeff of Brittany 19.1 H, Plt Count 160, MPV TNP, Immature Gran % (Auto) 0.100, Neut % (Auto) 75.9 H, Lymph % (Auto) 12.6 L, [place] % (Auto) 8.2, Eos % (Auto) 2.8, Baso % (Auto) 0.4, Absolute Neuts (auto) 5.1, Absolute Lymphs (auto) 0.84, Nucleated RBC % 0, Sodium 136, Potassium 4.3, Anion Gap 15, BUN 8, Creatinine 0.5 L, Est GFR (MDRD) Non-Af 102, BUN/Creatinine Ratio 15.7, Glucose 133 H, Calcium 10.3 07/05/24 21:00: Lactic Acid 1.0, Troponin T High Sens 13 Micro: Microbiology 07/05/24 21:00 Mucosa - Nose SARS-CoV-2, Influenza & RSV (PCR) - Final ABG Data ABG results: ABG 07/05/24 21:00 Specimen Type ART Sample Site L Radial pH 7.39 Bicarbonate Actual 26.2 H Total CO2 28 Base Excess 1 O2 Saturation 94 L O2 % 40.0 ABG pCO2 43.1 ABG pO2 70 L Doc Test Positive O2 Delivery Device Venti Mask Vent Mode Not entered Imaging Radiology Impression Chest X-Ray 07/05/24 16:58 IMPRESSION: Right perihilar pneumonia. This has moderately improved from prior exam. Reading Location: [facility] Chest CTA 07/05/24 20:15 IMPRESSION: Limited assessment due to streak artifact but suspicion for middle and bilateral lower lobe lobar, segmental, and subsegmental small pulmonary emboli. Mild diffuse bronchiectasis and bronchial wall thickening. Critical results were communicated to the ordering provider. One or more dose reduction techniques were used (e.g., Automated exposure control, adjustment of the mA and/or kV according to patient size, use of iterative reconstruction technique). Reading Location: [id number] Assessment & Plan Assessment/Plan (1) COPD exacerbation: (2) Bronchiectasis: QUALIFIERS: Bronchiectasis type: with acute exacerbation Qualified Code(s): J47.1 - Bronchiectasis with (acute) exacerbation (3) Laryngitis: (4) Pulmonary emboli: QUALIFIERS: Pulmonary embolism type: multiple subsegmental (without acute cor pulmonale) Qualified Code(s): I26.94 - Multiple subsegmental thrombotic pulmonary emboli without acute cor pulmonale (5) Chronic anticoagulation: (6) Respiratory insufficiency: (7) Primary pulmonary hypertension (PPH): (8) Lupus anticoagulant disorder: PLAN: Plan 1. AE COPD with CT positive for Bronchiectasis and with clinical evidence of Laryngitis - Admit to PCU. Continue IV ceftriaxone, IV azithromycin and IV Solu-Medrol begun in the ER and monitor for improvement. Resume scheduled and prn nebulizers. Check viral respiratory panel with laryngitis and place on droplet and contact precautions. Give acetaminophen prn for [id number]-hc-[id number] (level 1-5/10) pain or fever. Give morphine IV prn for severe (level 6-10/10) pain. Recheck ABG in AM to follow trend. 2. Possible subsegmental PE's in spite of a therapeutic INR of 3.4 present on admission complicating #1 - Check V/Q scan to confirm suspicion of possible PE's noted on CTA of chest this admission. Continue warfarin at 50% of previous dose due to antibiotic treatment outlined for #1 and check daily PT/INR. 3. Wgubs-nu-Gavfhky Respiratory Insufficiency with patient requiring 9L VM (up from her baseline of ~6L VM) due to #1 & #2 - Wean additional supplemental oxygen as tolerated. 4. History of primary pulmonary hypertension; on ambrisentan and sildenafil TID followed at [facility] complicating #1 - #3 - Maintain home regimen as before. 5. History of Lupus anticoagulant/antiphospholipid disorder adding to the medical complexity of #1 - #4 - Noted. 6. Essential Hypertension; on furosemide - Continue furosemide plus give prn hydralazine for systolic blood pressure > 160 mmHg. 7. Hyperlipidemia; on pravastatin - Resume statin. 8. Overweight; with BMI of 26.6 this admission - Weight loss will be recommended. Check TSH. 9. Chronic Atrial Fibrillation; on diltiazem and warfarin - Maintain current treatment. 10. Former tobacco abuse (quit ~1989); with patient denying history of asthma/COPD - Noted. 11. DM-2; of unknown control on metformin - ADA/cardiac diet. FSBS q. AC/HS plus SSI. Check HgbA1c to objectively assess quality of diabetic control. 12. History of TIA (2012) - Noted. 13. History of embolic filter insertion - Noted. 14. History of septal deviation - noted with patient having to use Venturi-mask rather than NC for this reason. 15. Depression and anxiety with panic disorder and claustrophobia; on sertraline and prn alprazolam BID - Continue current therapy. 16. History or panendoscopy - Noted. 17. History of cholecystectomy - Noted. 18. Overactive bladder; on tolterodine - Resume tolterodine as before. 19. History of GERD; on omeprazole - Continue PPI. 20. OA - Stable. Give acetaminophen prn according to pain scale outlined in #1. 21. DVT prophylaxis - Patient on therapeutic warfarin with INR of 3.4 present on admission. Check daily PT/INR to follow trend. Total time: Approximately (but not less than) 75 minutes. Charges/Coding Visit Charges Inpatient E&M: 47925 Init Hosp L3
[2024-07-06] VITALS (12 sets, daily range): BP systolic 130–144; BP diastolic 59–78; PULSE 92–110; RESP 16–22; TEMP 36.6–37; O2SAT 93–97; BMI 25.9
[2024-07-06 00:29] LABS: TROPONIN VARIANCE 2 HR 1; Troponin T High Sens 2 HR 14 ng/L (<=14)
[2024-07-06 01:07] LABS: Magnesium 1.8 mg/dL (1.5-2.2)
[2024-07-06] MEDS: 0.9% Normal Saline (1000mL) 1,000 ML 70 ML IV (01:21)
[2024-07-06 05:52] LABS: Absolute Lymphocyte Count 0.34 X10^3/uL (0.83-4.51); Absolute Neutrophil Count 2.5 X10^3/uL (2.0-7.7); Eosinophil# 0.01 X10^3/uL; Eosinophils% 0.3 % (0-5); Hematocrit 46.3 % (37-47); Hemoglobin 13.8 g/dL (12.0-15.0); Lymphocyte # 0.34 X10^3/ul (0.83-4.51); Lymphocyte % 11.5 % (19-41); Mean Corp Hgb Conc 29.8 g/dL (32-36); Mean Corpuscular Hgb 22.4 pg (27.0-32.0); Mean Corpuscular Volume 75.3 fL (81-99); Mean Platelet Vol. 11.3 fl (6.2-12.0); Monocyte# 0.08 X10^3/uL; Monocyte% 2.7 % (0-10); NRBC Flagged by Analyzer 0 % (0-5); Neutrophil # 2.51 X10^3/uL (2.7-7.7); Neutrophil % 85.2 % (47-70); POSITIVE DIFFERENTIAL YES; Platelet Count 131 K/mm3 (150-450); RBC Distribution Width CV 17.9 % (11.6-14.6); RBC Distribution Width SD 46.2 fl (35.1-43.9); Red Blood Count 6.15 M/mm3 (4.2-5.4)
[2024-07-06 06:10] LABS: Differential Indicated SCAN CRITERIA MET
[2024-07-06] MEDS: Potassium Chloride Oral Tablet 20 MEQ PO ×3 (06:18→21:34)
[2024-07-06] MEDS: Insulin Lispro 100 UNIT/ML INSULN.PEN SC ×3 (06:18→18:20)
[2024-07-06 06:38] LABS: Bedside Glucose 195 mg/dL (74-106)
[2024-07-06 06:46] LABS: Prothrombin Time (Protime)PT. 40.5 SECONDS (11.7-14.9)
[2024-07-06] MEDS: Ipratropium/Albuterol Sulfate 3 ML AMPUL.NEB INHALATION ×3 (06:53→19:16)
[2024-07-06 07:07] LABS: International Normalized Ratio 4.1
--- NOTE | 2024-07-06 08:34 | PN.HOSP_ITS ---
Reason for Visit Reason for Visit: Shortness of breath Subjective Subjective Patient has known history of chronic respiratory failure and now baseline is on 5 L at rest. Uses a Ventimask due to nasal passageway issues. She is also on medication for pulmonary hypertension including ambrisentan and sildenafil and follows at [facility]. She reports she has chronic dizziness. It sounds like it is vertiginous in nature and I have asked her to discuss this with her primary care physician as it does not seem to be affecting her currently or complicating her medical stay. With regards to the current admission she has had a nonproductive cough, wheezing and laryngitis. On her home oxygen, her sats dropped to 88% so she was brought to the emergency department for further evaluation. Patient states she is having a little bit of nausea today and feels her breathing is about the same. She is currently stable on 8 L supplemental oxygen. We did discuss that there is significant artifact on the CT. I have asked radiology to review this is its highly unlikely she had breakthrough PEs with a supratherapeutic INR on Coumadin. She has had no chest pain. Objective Data Objective Data Vital Signs: Vital Signs Temp Pulse Resp BP Pulse Ox O2 Del Method O2 Flow Rate 97.8 F 98 16 132/74 H 97 Venturi Mask 8 07/06/24 06:30 07/06/24 06:30 07/06/24 06:30 07/06/24 06:30 07/06/24 06:30 07/06/24 06:30 07/06/24 06:30 FiO2 40 07/06/24 05:08 Oxygen Flow Rate (L/min) 8 Oxygen Delivery Method Venturi Mask Weight: 64.4 kg Body Mass Index (BMI) 25.9 Intake & Output: Intake and Output for Last 24 Hours 07/04/24 07/05/24 07/06/24 23:59 23:59 23:59 Intake Total 50 / 50 755 / 755 Balance 50 / 50 755 / 755 Lab / Micro Data 07/06/24 05:10 07/06/24 05:10 Labs: Laboratory Results - last 24 hr 07/05/24 18:40: PT 35.2 H, INR 3.4 07/05/24 18:42: WBC 6.7, RBC 7.15 H, Hgb 16.1 H, Hct 53.1 H, MCV 74.3 L, MCH 22.5 L, MCHC 30.3 L, RDW Std Deviation 46.6 H, RDW Coeff of Brittany 19.1 H, Plt Count 160, MPV TNP, Immature Gran % (Auto) 0.100, Neut % (Auto) 75.9 H, Lymph % (Auto) 12.6 L, [place] % (Auto) 8.2, Eos % (Auto) 2.8, Baso % (Auto) 0.4, Absolute Neuts (auto) 5.1, Absolute Lymphs (auto) 0.84, Nucleated RBC % 0, Sodium 136, Potassium 4.3, Anion Gap 15, BUN 8, Creatinine 0.5 L, Est GFR (MDRD) Non-Af 102, BUN/Creatinine Ratio 15.7, Glucose 133 H, Calcium 10.3 07/05/24 21:00: Lactic Acid 1.0, Troponin T High Sens 13 07/05/24 23:27: Magnesium 1.8, Delta Troponin T 1, Troponin T Hi Sens 2 Hr 14, TSH 2.160 07/06/24 05:10: WBC 3.0 L, RBC 6.15 H, Hgb 13.8, Hct 46.3, MCV 75.3 L, MCH 22.4 L, MCHC 29.8 L, RDW Std Deviation 46.2 H, RDW Coeff of Brittany 17.9 H, Plt Count 131 L, MPV 11.3, Immature Gran % (Auto) 0.300, Neut % (Auto) 85.2 H, Lymph % (Auto) 11.5 L, [place] % (Auto) 2.7, Eos % (Auto) 0.3, Baso % (Auto) 0.0, Absolute Neuts (auto) 2.5, Absolute Lymphs (auto) 0.34 L, Nucleated RBC % 0, Diff Path Review September foll, PT 40.5 H, INR 4.1 H* 07/06/24 06:17: POC Glucose 195 H Micro: Microbiology 07/05/24 21:00 Mucosa - Nose SARS-CoV-2, Influenza & RSV (PCR) - Final ABG Data ABG results: ABG 07/05/24 21:00 Specimen Type ART Sample Site L Radial pH 7.39 Bicarbonate Actual 26.2 H Total CO2 28 Base Excess 1 O2 Saturation 94 L O2 % 40.0 ABG pCO2 43.1 ABG pO2 70 L Doc Test Positive O2 Delivery Device Venti Mask Vent Mode Not entered Radiography Diagnostic Testing: Radiology Impression Chest X-Ray 07/05/24 16:58 IMPRESSION: Right perihilar pneumonia. This has moderately improved from prior exam. Reading Location: [facility] Chest CTA 07/05/24 20:15 IMPRESSION: Limited assessment due to streak artifact but suspicion for middle and bilateral lower lobe lobar, segmental, and subsegmental small pulmonary emboli. Mild diffuse bronchiectasis and bronchial wall thickening. Critical results were communicated to the ordering provider. One or more dose reduction techniques were used (e.g., Automated exposure control, adjustment of the mA and/or kV according to patient size, use of iterative reconstruction technique). Reading Location: [place] [id number] Physical Exam Const alert, oriented x3, no apparent distress and average body habitus; Negative for healthy appearing or well nourished Constitutional Narrative: Older, white female, sitting up in a chair, appears older than stated age, does not appear toxic but appears ill, family at bedside HEENT head/scalp atraumatic HEENT Narrative: No thrush, Mallampati 2 Head and Scalp: normocephalic Resp no retractions, no use of accessory muscles and No clear to auscultation bilaterally Resp Narrative: Diffusely diminished, crackles at bases bilaterally Auscultation: crackles; Negative for rhonchi Cardio regular rate, regular rhythm, S1 normal heart sound, S2 normal heart sound, no murmurs, no rub, no gallops and no clicks GI normal to inspection, nondistended, normoactive bowel sounds, soft to palpation and non-tender Extremity Extremity Narrative: 1+ bilateral lower extremity pedal edema, no cyanosis or clubbing Neuro oriented x3, moves all extremities and no focal motor deficits Neuro Narrative: Generalized weakness with no focal deficits noted Speech: speech normal Psych Psych Narrative: Affect is flat but eye contact is good and patient interacts appropriately Assessment & Plan Assessment/Plan (1) COPD exacerbation: (2) Acute on chronic hypoxic respiratory failure: PLAN: Plan Acute on chronic hypoxic respiratory failure secondary to acute exacerbation of COPD with bronchiectasis -At baseline patient is on 5 L supplemental nasal cannula/VM -Currently requiring 8 L VM -Check strep pneumo and Legionella antigens -COVID/flu/RSV/respiratory viral panel are all negative -Check sputum culture if able to produce -Will continue azithromycin and ceftriaxone for now -BNP was elevated on presentation so we will go ahead and start Lasix 40 mg IV twice daily -Patient reports that due to her vertiginous symptoms her primary care physician decreased her Lasix within the last 4 weeks -Continue IV steroids and transition from 60 twice daily to 40 every 8 -Wean oxygen as able -Will need ambulatory pulse ox prior to discharge -If clinically does not improve will broaden antibiotics to cover Pseudomonas with bronchiectasis -Check echocardiogram with elevated BNP however I do suspect she probably has pretty significant elevated pulmonary pressures -May need pulmonary medicine involvement depending on ability to wean oxygen back to baseline History of VTE with history of antiphospholipid antibody syndrome -On Coumadin at baseline and INR was supratherapeutic on admission at 3.4 -CTA of the chest suggested possible subsegmental PEs however there was significant motion artifact -With her pulmonary abnormalities VQ scan will not be helpful and CTA is gold standard so we will discontinue VQ scan for now -I have discussed with radiology and requested a review of the imaging -Currently Coumadin is on hold due to supratherapeutic INR now at 4.1 -Repeat INR in a.m. -Patient does have IVC filter History of pulmonary hypertension -Type unclear -Suspect type I due to medication use -Follows as an outpatient with pulmonary medicine -Check echocardiogram for signs of cor pulmonale which could be contributing to her shortness of breath and acute decompensation Essential hypertension/hyperlipidemia -Continue home statin -Continue home Aldactone -Continue home diltiazem -Hold home Lasix and utilize IV Lasix 40 IV twice daily Supratherapeutic INR -Coumadin on hold -INR is 4.1 today Chronic atrial fibrillation -Continue home diltiazem -Coumadin on hold for supratherapeutic INR COPD -Hold home inhalers -Treatment as above DM-2 -Metformin on hold -Cardiac/carb controlled diet -Accu-Cheks as ordered -SSI -Hemoglobin A1c is pending GERD Plan continue home PPI Depression/anxiety with claustrophobia/agoraphobia -Continue home medication Overactive bladder with urinary incontinence -Continue home medication DVT prophylaxis -INR supratherapeutic at 4.1 CODE STATUS -DNR CCA with no intubation as verified today by me Charges/Coding Visit Charges Inpatient E&M: 47443 Subs Hosp L2
--- NOTE | 2024-07-06 10:30 | CASEMGMT ---
RN CM Face to Face with patient for initial transition planning/care coordination assessment. RN CM introduced self and role at [facility]. Patient sitting in chair, alert and oriented, daughter at bedside. Patient willing to participate in assessment and is able to answer all questions appropriately. Care providers, pharmacy, and demographics verified. Strata: 3 PCP: [facility] Specialists: Abigail, migrant leader [facility]; Erickson, psychiartist; Darryl, surgeon Preferred Pharmacy: [facility] Insurance: MMO [facility] Prescription Benefit: yes Living Will/HPOA: yes daughter Martha Allen LNOK: daughters Living Arrangements: Patient lives alone in a single floor condo with no steps to enter. Patient is independent at home, daughter assist with showers. Daughter inquired about aides, private duty list provided. Transportation: daughters DME/HHC: Patient has shower chair, BSC, raised toilet, walker, pulse ox, and home oxygen with [employer] at 4lpm with POC. Patient has been to [facility] in the past. Patient is active with [facility]. Patient wishes to discharge home, denies need for home health at this time. Patient states she has no further needs or concerns at this time. CM to follow for discharge planning needs that may arise. Disposition Plan: Patient to discharge home with resumption of HHC, family support, and follow-up plans in place. Ariane CLEVELAND, RN, CM
[2024-07-06] MEDS: Lactobacillis Acidophilus 1 CAP PO ×3 (10:45→21:34)
[2024-07-06] MEDS: Spironolactone 50 MG Tablet PO (10:45)
[2024-07-06] MEDS: Sertraline 100 MG Tablet PO (10:46)
[2024-07-06] MEDS: Pantoprazole Sodium 40 MG Tablet PO (10:46)
[2024-07-06] MEDS: Furosemide 20 MG Tablet PO (10:46)
[2024-07-06] MEDS: Cholecalciferol (Vit D3) 125 MCG CAPSULE (5,000 UNITS) PO (10:46)
[2024-07-06] MEDS: dilTIAZem CD 180 MG Capsule 360 MG PO (10:46)
[2024-07-06] MEDS: Tolterodine Tartrate 2 MG CAP.SA PO (10:46)
[2024-07-06] MEDS: SILDENAFIL CITRATE 20 MG TABLET 60 MG PO ×2 (11:12→18:22)
[2024-07-06 12:03] LABS: Allen Test Positive; Base Excess 0 mmol/L (-2 to +2); Blood Gas Specimen Type ART; Mode Not entered; O2 Delivery Device Venti Mask; PO2 61 mmHG (75-100); SITE L Radial; SO2 92 % (95-99); Total Carbon Dioxide 25 mmol/L; pCO2 36.8 mmHg (35-45); pH 7.42 (7.35-7.45)
[2024-07-06 12:51] LABS: Bedside Glucose 227 mg/dL (74-106)
[2024-07-06 13:36] LABS: Pathologist Review Reviewed
--- NOTE | 2024-07-06 14:22 | CASEMGMT ---
Discharge Planning HH resumption referral sent to [facility] with note asking for confirmation of disciplines receiving. Gilda Solo DC Planning Asst.
[2024-07-06 15:14] LABS: Bedside Glucose 236 mg/dL (74-106)
[2024-07-06] MEDS: ALPRAZolam 0.5 MG Tablet PO (15:14)
[2024-07-06] MEDS: proMETHazine 25 MG/ML Syringe IM (15:14)
[2024-07-06] MEDS: 0.9% Saline Lock 10 ML Syringe IV ×2 (15:19→18:34)
[2024-07-06 17:50] LABS: Phosphorus 3.1 mg/dL (2.7-4.5)
[2024-07-06 18:08] LABS: ALB/GLOB Ratio 1.5 RATIO (0.9-2.4); AST(SGOT) 25 U/L (<=31); Alanine Aminotransfer ALT/SGPT 19 U/L (<=34); Albumin, Serum 3.5 g/dL (3.4-4.8); Alkaline Phosphatase 120 U/L (35-104); Anion Gap 16 (5-15); BUN 9 mg/dL (4-19); BUN/Creat Ratio 20.3 RATIO (10-20); Carbon Dioxide 18.7 mmol/L (22.0-29.0); Chloride 104 mmol/L (96-108); Creatinine, Serum 0.4 mg/dL (0.6-1.0); EST Glomerular Filtration Rate 105 (>60); Estimated Creatinine Clearance 57.66 ml/min; Globulin 2.3 g/dL (2.2-4.2); Glucose 216 mg/dL (70-99); Potassium 4.2 mmol/L (3.3-5.1); Protein, Total 5.8 g/dL (5.9-8.4); Sodium Level 140 mmol/L (133-145); Total Bilirubin 0.23 mg/dL (0.00-1.30)
[2024-07-06] MEDS: Furosemide 40 MG/4 ML Vial IV (18:34)
[2024-07-06 18:45] LABS: Bedside Glucose 207 mg/dL (74-106)
[2024-07-06] MEDS: CLARIFY ORDER 1 EACH NOTE (19:30)
--- NOTE | 2024-07-06 20:19 | ECHOD_ITS ---
Reason For Study Reason For Study: RV FAILURE Procedure This was a 2D Doppler, Color Flow transthoracic echocardiogram. Exam performed portable in patient room. Left Ventricle Normal LV size. The estimated ejection fraction is 70 %. Unable to assess diastolic dysfunction. No regional wall motion abnormalities noted. Right Ventricle Normal RV size. Normal systolic function. Atria The left atrium is mildly enlarged. Normal right atrium. No doppler evidence for ASD. Mitral Valve There is mild to moderate mitral annular calcification. There is no mitral valve stenosis. No mitral valve insufficiency. Tricuspid Valve There is no tricuspid stenosis. Trivial tricuspid valve insufficiency. Pulmonary artery systolic pressure is 45 mmHg. Aortic Valve Mild diffuse aortic valve thickening. Trisinus/trileaflet aortic valve. There is no aortic stenosis. No aortic valve insufficiency. Pulmonic Valve There is no pulmonic valvular stenosis. No pulmonic valve insufficiency. Great Vessels Normal sized aortic root. Pericardium/Pleural No pericardial effusion. MMode/2D Measurements & Calculations LVIDd: 4.5 cm IVSd: 1.3 cm Ao root diam: 3.1 cm LVIDs: 3.2 cm LVPWd: 1.5 cm RVDd: 4.0 cm FS: 30.4 % LAV(MOD-bp): 63.2 ml LVAd ap4: 29.2 cm2 SV(MOD-sp4): 67.3 ml LAV(MOD-bp) Indexed: 38.4 ml/m2 LVLd ap4: 8.5 cm SI(MOD-sp4): 40.8 ml/m2 LAV(MOD-sp2): 50.6 ml EDV(MOD-sp4): 80.6 ml LAV(MOD-sp4): 67.6 ml EDV(sp4-el): 85.1 ml LVAs ap4: 10.0 cm2 LVLs ap4: 6.5 cm ESV(MOD-sp4): 13.4 ml ESV(sp4-el): 13.2 ml EF(MOD-sp4): 83.4 % EF(sp4-el): 84.5 % SV(sp4-el): 71.9 ml LA A4 area: 22.5 cm2 LA dimension(2D): 3.4 cm RA A4 area: 17.5 cm2 Time Measurements MV dec time: 0.05 sec Doppler Measurements & Calculations MV E max abe: 90.0 cm/sec MV V2 max: 156.7 cm/sec MV dec slope: 2252 cm/sec2 MV A max abe: 150.7 cm/sec MV max P.8 mmHg MV E/A: 0.60 MV V2 mean: 98.6 cm/sec MV mean P.4 mmHg MV V2 VTI: 33.2 cm Ao V2 max: 200.9 cm/sec LV V1 max: 145.4 cm/sec PA V2 max: 124.6 cm/sec Ao max P.2 mmHg LV V1 max P.5 mmHg PA V2 mean: 94.3 cm/sec Ao V2 mean: 149.3 cm/sec LV V1 mean P.3 mmHg Ao mean P.0 mmHg LV V1 mean: 110.3 cm/sec Ao V2 VTI: 42.8 cm LV V1 VTI: 30.1 cm AV (velocity ratio): 0.70 TR max abe: 306.7 cm/sec TR max P.6 mmHg ECHO/Echo Complete Interpretation Summary The estimated ejection fraction is 70 %. The left atrium is mildly enlarged. Mild diffuse aortic valve thickening. Ordering Physician: Lakia Menjivar Referring Physician: Wilson Pedraza M.D. Performed By: Toyin Vargas RCS
[2024-07-06] MEDS: Pravastatin 40 MG Tablet PO (21:34)
[2024-07-06] MEDS: Ceftriaxone 1 GM/50 ML BAG IV (21:35)
[2024-07-06] MEDS: Azithromycin 500 MG in 0.9% Normal Saline (250mL Bag) 250 ML 255 MG IV (22:38)
[2024-07-07] VITALS (8 sets, daily range): BP systolic 128–150; BP diastolic 49–63; PULSE 74–94; RESP 17–20; TEMP 36.4–36.6; O2SAT 94–95; BMI 25.8
[2024-07-07 05:11] LABS: Absolute Lymphocyte Count 0.39 X10^3/uL (0.83-4.51); Absolute Neutrophil Count 3.9 X10^3/uL (2.0-7.7); Hematocrit 43.3 % (37-47); Lymphocyte # 0.39 X10^3/ul (0.83-4.51); Lymphocyte % 8.7 % (19-41); Mean Corpuscular Hgb 22.3 pg (27.0-32.0); Mean Corpuscular Volume 74.3 fL (81-99); Mean Platelet Vol. 10.9 fl (6.2-12.0); Monocyte# 0.12 X10^3/uL; Monocyte% 2.7 % (0-10); NRBC Flagged by Analyzer 0 % (0-5); Neutrophil # 3.93 X10^3/uL (2.7-7.7); Neutrophil % 88.2 % (47-70); POSITIVE DIFFERENTIAL YES; Platelet Count 176 K/mm3 (150-450); RBC Distribution Width CV 17.9 % (11.6-14.6); RBC Distribution Width SD 45.8 fl (35.1-43.9); Red Blood Count 5.83 M/mm3 (4.2-5.4); White Blood Count 4.5 K/mm3 (4.4-11.0)
[2024-07-07 05:43] LABS: International Normalized Ratio 3.7; Prothrombin Time (Protime)PT. 37.7 SECONDS (11.7-14.9)
[2024-07-07 05:54] LABS: ALB/GLOB Ratio 1.9 RATIO (0.9-2.4); AST(SGOT) 22 U/L (<=31); Alanine Aminotransfer ALT/SGPT 16 U/L (<=34); Albumin, Serum 3.7 g/dL (3.4-4.8); Alkaline Phosphatase 108 U/L (35-104); Anion Gap 9 (5-15); BUN 15 mg/dL (4-19); BUN/Creat Ratio 29.6 RATIO (10-20); Calcium 10.2 mg/dL (7.6-11.0); Carbon Dioxide 25.8 mmol/L (22.0-29.0); Chloride 105 mmol/L (96-108); Creatinine, Serum 0.5 mg/dL (0.6-1.0); EST Glomerular Filtration Rate 100 (>60); Estimated Creatinine Clearance 57.54 ml/min; Globulin 1.9 g/dL (2.2-4.2); Glucose 285 mg/dL (70-99); Magnesium 2.1 mg/dL (1.5-2.2); Phosphorus 2.8 mg/dL (2.7-4.5); Potassium 4.2 mmol/L (3.3-5.1); Protein, Total 5.7 g/dL (5.9-8.4); Sodium Level 140 mmol/L (133-145)
[2024-07-07] MEDS: Potassium Chloride Oral Tablet 20 MEQ PO ×3 (06:24→21:56)
[2024-07-07] MEDS: SILDENAFIL CITRATE 20 MG TABLET 60 MG PO ×3 (06:24→21:56)
[2024-07-07] MEDS: Insulin Lispro 100 UNIT/ML INSULN.PEN SC ×3 (06:25→16:54)
[2024-07-07 06:48] LABS: Bedside Glucose 256 mg/dL (74-106)
[2024-07-07] MEDS: Ipratropium/Albuterol Sulfate 3 ML AMPUL.NEB INHALATION ×3 (07:11→21:15)
--- NOTE | 2024-07-07 08:25 | PCM.PN.HOSP ---
Reason for Visit Reason for Visit: Shortness of breath Subjective Subjective Patient states she is feeling much better today. Overall breathing has improved. She does seem to be diuresing well. She does complain that her eyes are little bit red and having some drainage however she does not appear to have bacterial conjunctivitis she either has some dry eyes or a viral conjunctivitis. Objective Data Objective Data Vital Signs: Vital Signs Temp Pulse Resp BP Pulse Ox O2 Del Method O2 Flow Rate 97.8 F 74 19 H 150/63 H 94 Venturi Mask 8 07/07/24 05:45 07/07/24 07:14 07/07/24 07:14 07/07/24 05:45 07/07/24 07:14 07/07/24 07:14 07/07/24 07:14 FiO2 40 07/07/24 07:14 Oxygen Flow Rate (L/min) 8 Oxygen Delivery Method Venturi Mask Weight: 64.1 kg Body Mass Index (BMI) 25.8 Intake & Output: Intake and Output for Last 24 Hours 07/05/24 07/06/24 07/07/24 23:59 23:59 23:59 Intake Total 50 / 50 1608.33 / 1608.33 Output Total 650 / 650 Balance 50 / 50 1608.33 / 1308.33 -650 / -650 Medical Nutrition Assessment Dietitian: Malnutrition Criteria Met Start: 07/06/24 14:47 Freq: Status: Active Protocol: Document 07/06/24 14:47 SB (Rec: 07/06/24 14:48 SB [id number]) Nutrition Malnutrition Evidence of Yes Malnutrition Exists Malnutrition (severe Chronic ): Evidenced By Suboptimal Energy Intake (Severe),Weight Loss (Severe), Physical Changes (Moderate) Clinical Problem Chronic Disease or Condition Related Malnutrition Etiology severe related to inadequate oral intake and increased energy expenditure d/t COPD Signs/Symptoms as evidenced by PO meeting <75% of estimated nutrition needs x 4 months, 23% unintentional weight loss x 4 months and moderate wasting in clavicle region. Status Active Problem Recommendation Dietitian Adjust to consistent carbohydrate diet. Recommendations/ Will order 240ml glucerna shake TID with meals. Changes Will monitor weight trends. If PO and weight continue to declines, recommend nutrition support. Lab / Micro Data 07/07/24 04:50 07/07/24 04:50 Labs: Laboratory Results - last 24 hr 07/06/24 05:10: Diff Path Review Reviewed, Sodium 140, Potassium 4.2, Chloride Direct 104, Carbon Dioxide 18.7 L, Anion Gap 16 H, BUN 9, Creatinine 0.4 L, Estim Creat Clear Calc 57.66, Est GFR (MDRD) Non-Af 105, BUN/Creatinine Ratio 20.3 H, Glucose 216 H, Calcium 10.0, Phosphorus 3.1, Total Bilirubin 0.23, AST 25, ALT 19, Alkaline Phosphatase 120 H, Total Protein 5.8 L, Albumin 3.5, Globulin 2.3, Albumin/Globulin Ratio 1.5 07/06/24 12:26: POC Glucose 227 H 07/06/24 14:55: POC Glucose 236 H 07/06/24 18:19: POC Glucose 207 H 07/07/24 04:50: WBC 4.5, RBC 5.83 H, Hgb 13.0, Hct 43.3, MCV 74.3 L, MCH 22.3 L, MCHC 30.0 L, RDW Std Deviation 45.8 H, RDW Coeff of Brittany 17.9 H, Plt Count 176, MPV 10.9, Immature Gran % (Auto) 0.400, Neut % (Auto) 88.2 H, Lymph % (Auto) 8.7 L, [place] % (Auto) 2.7, Eos % (Auto) 0.0, Baso % (Auto) 0.0, Absolute Neuts (auto) 3.9, Absolute Lymphs (auto) 0.39 L, Nucleated RBC % 0, PT 37.7 H, INR 3.7, Sodium 140, Potassium 4.2, Chloride Direct 105, Carbon Dioxide 25.8, Anion Gap 9, BUN 15, Creatinine 0.5 L, Estim Creat Clear Calc 57.54, Est GFR (MDRD) Non-Af 100, BUN/Creatinine Ratio 29.6 H, Glucose 285 H, Calcium 10.2, Phosphorus 2.8, Magnesium 2.1, Total Bilirubin 0.20, AST 22, ALT 16, Alkaline Phosphatase 108 H, Total Protein 5.7 L, Albumin 3.7, Globulin 1.9 L, Albumin/Globulin Ratio 1.9 07/07/24 06:23: POC Glucose 256 H Micro: Microbiology 07/06/24 05:08 Mucosa - Nasopharyngeal Respiratory Panel (PCR) - Final 07/05/24 21:00 Mucosa - Nose SARS-CoV-2, Influenza & RSV (PCR) - Final ABG Data ABG results: ABG 07/06/24 11:59 Specimen Type ART Sample Site L Radial pH 7.42 Bicarbonate Actual 24.0 Total CO2 25 Base Excess 0 O2 Saturation 92 L O2 % 40.0 ABG pCO2 36.8 ABG pO2 61 L Doc Test Positive O2 Delivery Device Venti Mask Vent Mode Not entered Clinical Comments Physical Exam Const alert, oriented x3, no apparent distress and average body habitus; Negative for healthy appearing or well nourished Constitutional Narrative: Older, white female, sitting up in a chair, appears older than stated age, not toxic, appears much improved today, family at bedside General Appearance: cooperative HEENT normocephalic, head/scalp atraumatic, hearing grossly normal bilaterally and moist oral mucous membranes HEENT Narrative: Mallampati 2, no thrush Resp normal respiratory effort, no retractions, no use of accessory muscles and No clear to auscultation bilaterally Resp Narrative: Still with few scattered crackles at bases bilaterally right greater than left Auscultation: crackles and wheezes; Negative for rhonchi Cardio regular rate, regular rhythm, S1 normal heart sound, S2 normal heart sound, no murmurs, no rub, no gallops and no clicks GI normal to inspection, nondistended, normoactive bowel sounds, soft to palpation and non-tender Extremity normal to inspection, full ROM and no clubbing, cyanosis or edema Extremity Narrative: Trace bilateral lower extremity edema with wrinkling noted in her distal lower extremities, no cyanosis or clubbing Neuro oriented x3, moves all extremities and no focal motor deficits Neuro Narrative: Generalized weakness with no focal deficits noted Speech: speech normal Psych affect normal Psych Narrative: Very pleasant, interacts appropriately Assessment & Plan Assessment/Plan (1) COPD exacerbation: (2) Acute on chronic hypoxic respiratory failure: PLAN: Plan Acute on chronic hypoxic respiratory failure secondary to acute exacerbation of COPD with bronchiectasis -At baseline patient is on 5 L supplemental nasal cannula/VM -Currently requiring 8 L VM--> wean as able -Will check ambulatory pulse ox tomorrow as patient clinically is much improved -Infectious workup has been unremarkable -Discontinue antibiotics -Continue Lasix 40 mg IV push twice daily -Continue IV steroids 40 every 8 for now -Wean oxygen as able -Echocardiogram done on 07/06/2024 and showed EF of 70% with mild left atrial enlargement, mild diffuse aortic valve thickening and pulmonary artery hypertension with a right ventricular systolic pressure of 44 mmHg -Highly suspect her clinical worsening was related to a decrease in her diuretics -Home diuretics were cut by 50% -Will plan to increase diuresis back up to 40 p.o. twice daily at the time of discharge History of VTE with history of antiphospholipid antibody syndrome -On Coumadin at baseline and INR was supratherapeutic on admission at 3.4 -CTA of the chest suggested possible subsegmental PEs however there was significant motion artifact -With her pulmonary abnormalities VQ scan will not be helpful and CTA is gold standard so we will discontinue VQ scan for now -Currently Coumadin is on hold due to supratherapeutic INR now at 3.7 -Anticipate reinitiation of Coumadin tomorrow -Repeat INR in a.m. -Patient does have IVC filter History of pulmonary hypertension secondary to chronic thromboembolic disease -Suspect type I due to medication use -Follows as an outpatient with pulmonary medicine -Echocardiogram does show pulmonary hypertension Essential hypertension/hyperlipidemia -Continue home statin -Continue home Aldactone -Continue home diltiazem -Continue to hold home Lasix and continue IV Lasix 40 IV twice daily Supratherapeutic INR -Coumadin on hold -INR is 3.7 -Anticipate reinitiation of Coumadin tomorrow Chronic atrial fibrillation -Continue home diltiazem -Coumadin on hold for supratherapeutic INR COPD -Hold home inhalers -Treatment as above DM-2 -Metformin on hold -Cardiac/carb controlled diet -Accu-Cheks as ordered -SSI -A1c remains pending GERD Plan continue home PPI Depression/anxiety with claustrophobia/agoraphobia -Continue home medication Overactive bladder with urinary incontinence -Continue home medication DVT prophylaxis -INR supratherapeutic at 3.7 CODE STATUS -DNR CCA with no intubation Charges/Coding Visit Charges Inpatient E&M: 14218 Subs Hosp L2
[2024-07-07] MEDS: Tolterodine Tartrate 2 MG CAP.SA PO (09:24)
[2024-07-07] MEDS: Pantoprazole Sodium 40 MG Tablet PO (09:24)
[2024-07-07] MEDS: dilTIAZem CD 180 MG Capsule 360 MG PO (09:24)
[2024-07-07] MEDS: Cholecalciferol (Vit D3) 125 MCG CAPSULE (5,000 UNITS) PO (09:24)
[2024-07-07] MEDS: Spironolactone 50 MG Tablet PO (09:24)
[2024-07-07] MEDS: Sertraline 100 MG Tablet PO (09:24)
[2024-07-07] MEDS: Furosemide 40 MG/4 ML Vial IV ×2 (09:25→17:26)
[2024-07-07] MEDS: Lactobacillis Acidophilus 1 CAP PO ×4 (09:29→21:56)
[2024-07-07 12:08] LABS: Bedside Glucose 363 mg/dL (74-106)
--- NOTE | 2024-07-07 13:51 | CCN.REFER ---
PATIENT IS ALSO ACTIVE WITH [facility]. [facility] WILL RESUME UPON DC HOME.
--- NOTE | 2024-07-07 15:59 | CHAPLAIN ---
Type of Pastoral Visit _x__ Initial Visit ___ Follow-up Visit ___ On-call Visit ___ General Patient Visit ___ Spiritual Assessment ___ Family Conference ___ Bereavement ___ Rapid Response ___ Code Blue ___ Other (describe below) Pastoral Care Referral From _x__ Patient ___ Family ___ Nurse ___ Physician ___ Cleaner Operator ___ Bat Boy/Girl ___ Other (describe below) Sacrament/Intervention _x__ Active listening ___ Anointing ___ Caodaism ___ Bereavement ___ Communion _x__ Meme exploration ___ _x__ Life review _x__ Prayer ___ Reconciliation ___ Sacrament of Sick ___ Supportive presence ___ Wedding ___ Other (describe below) Pastoral Comments patient and daughter are in the room; pt is on O2 but is sitting up and alert; pt indicates that she is better today but also concerned about living alone and unable to talk to people on the phone; pt's daughter gives more details so patient is not having to talk too much; pt has had 24 years of this issue and has long outlived expectancy; pt indicates desire for prayer but then asks for 'understanding the world and the difference of people's meme and politics'; turned focus on the Zoroastrian meme and not politics; gave prayer and offer of future spiritual care support; pt expresses thanks for the visit
[2024-07-07 17:16] LABS: Bedside Glucose 295 mg/dL (74-106)
[2024-07-07] MEDS: Pravastatin 40 MG Tablet PO (21:56)
[2024-07-08] VITALS (9 sets, daily range): BP systolic 116–134; BP diastolic 47–61; PULSE 72–89; RESP 16–20; TEMP 36.6–37; O2SAT 84–95; BMI 25.9
[2024-07-08 05:32] LABS: Hematocrit 39.6 % (37-47); Hemoglobin 11.9 g/dL (12.0-15.0); Mean Corp Hgb Conc 30.1 g/dL (32-36); Mean Corpuscular Hgb 22.3 pg (27.0-32.0); Mean Corpuscular Volume 74.3 fL (81-99); Mean Platelet Vol. 11.1 fl (6.2-12.0); Platelet Count 145 K/mm3 (150-450); RBC Distribution Width CV 17.2 % (11.6-14.6); RBC Distribution Width SD 46.3 fl (35.1-43.9); Red Blood Count 5.33 M/mm3 (4.2-5.4); White Blood Count 5.8 K/mm3 (4.4-11.0)
[2024-07-08 05:56] LABS: Anion Gap 10 (5-15); BUN 20 mg/dL (4-19); BUN/Creat Ratio 40.9 RATIO (10-20); Calcium 10.2 mg/dL (7.6-11.0); Carbon Dioxide 24.3 mmol/L (22.0-29.0); Chloride 101 mmol/L (96-108); Creatinine, Serum 0.49 mg/dL (0.70-1.20); EST Glomerular Filtration Rate 101 (>60); Estimated Creatinine Clearance 57.62 ml/min; Glucose 261 mg/dL (70-99); Potassium 4.3 mmol/L (3.3-5.1); Sodium Level 135 mmol/L (133-145)
[2024-07-08] MEDS: SILDENAFIL CITRATE 20 MG TABLET 60 MG PO ×3 (06:23→21:53)
[2024-07-08] MEDS: Insulin Lispro 100 UNIT/ML INSULN.PEN SC ×3 (06:23→16:36)
[2024-07-08] MEDS: Potassium Chloride Oral Tablet 20 MEQ PO ×3 (06:23→21:53)
[2024-07-08 06:50] LABS: Bedside Glucose 235 mg/dL (74-106)
[2024-07-08] MEDS: Ipratropium/Albuterol Sulfate 3 ML AMPUL.NEB INHALATION ×3 (07:13→20:38)
[2024-07-08] MEDS: Furosemide 40 MG/4 ML Vial IV (09:25)
[2024-07-08] MEDS: Tolterodine Tartrate 2 MG CAP.SA PO (09:25)
[2024-07-08] MEDS: Cholecalciferol (Vit D3) 125 MCG CAPSULE (5,000 UNITS) PO (09:25)
[2024-07-08] MEDS: Pantoprazole Sodium 40 MG Tablet PO (09:25)
[2024-07-08] MEDS: Sertraline 100 MG Tablet PO (09:25)
[2024-07-08] MEDS: Spironolactone 50 MG Tablet PO (09:26)
[2024-07-08] MEDS: dilTIAZem CD 180 MG Capsule 360 MG PO (09:26)
[2024-07-08] MEDS: Lactobacillis Acidophilus 1 CAP PO ×4 (09:26→21:53)
[2024-07-08 12:07] LABS: Bedside Glucose 331 mg/dL (74-106)
--- NOTE | 2024-07-08 13:47 | CASEMGMT ---
RN GUADALUPE received notification [facility] able to restart care at time of DC. Notified Pt.
[2024-07-08] MEDS: Furosemide 500 MG in Empty Viaflex 50 mL 1 EACH CONT INF (14:15)
[2024-07-08 16:58] LABS: Bedside Glucose 328 mg/dL (74-106)
--- NOTE | 2024-07-08 17:41 | PCM.PN.HOSP ---
Reason for Visit Reason for Visit: Shortness of breath Subjective Subjective Still hypoxic with exertion but patient states she feels much better overall. Baseline oxygen is 5 L but still on 8 L. Objective Data Objective Data Vital Signs: Vital Signs Temp Pulse Resp BP Pulse Ox O2 Del Method O2 Flow Rate 98.6 F 78 16 123/50 H 94 Venturi Mask 5 07/08/24 09:45 07/08/24 13:31 07/08/24 13:31 07/08/24 09:45 07/08/24 09:45 07/08/24 09:45 07/08/24 13:07 FiO2 40 07/08/24 07:13 Oxygen Flow Rate (L/min) 5 Oxygen Delivery Method Venturi Mask Weight: 64.3 kg Body Mass Index (BMI) 25.9 Intake & Output: Intake and Output for Last 24 Hours 07/06/24 07/07/24 07/08/24 23:59 23:59 23:59 Intake Total 1608.33 / 1608.33 240 / 240 360 / 360 Output Total 650 / 650 0 / 0 Balance 1608.33 / 1308.33 -410 / -410 360 / 360 Medical Nutrition Assessment Dietitian: Malnutrition Criteria Met Start: 07/06/24 14:47 Freq: Status: Active Protocol: Document 07/06/24 14:47 SB (Rec: 07/06/24 14:48 SB [id number]) Nutrition Malnutrition Evidence of Yes Malnutrition Exists Malnutrition (severe Chronic ): Evidenced By Suboptimal Energy Intake (Severe),Weight Loss (Severe), Physical Changes (Moderate) Clinical Problem Chronic Disease or Condition Related Malnutrition Etiology severe related to inadequate oral intake and increased energy expenditure d/t COPD Signs/Symptoms as evidenced by PO meeting <75% of estimated nutrition needs x 4 months, 23% unintentional weight loss x 4 months and moderate wasting in clavicle region. Status Active Problem Recommendation Dietitian Adjust to consistent carbohydrate diet. Recommendations/ Will order 240ml glucerna shake TID with meals. Changes Will monitor weight trends. If PO and weight continue to declines, recommend nutrition support. Lab / Micro Data 07/08/24 04:50 07/08/24 04:50 Labs: Laboratory Results - last 24 hr 07/06/24 05:10: Hemoglobin A1c Cancelled 07/07/24 04:50: Hemoglobin A1c 7.0 07/08/24 04:50: WBC 5.8, RBC 5.33, Hgb 11.9 L, Hct 39.6, MCV 74.3 L, MCH 22.3 L, MCHC 30.1 L, RDW Std Deviation 46.3 H, RDW Coeff of Brittany 17.2 H, Plt Count 145 L, MPV 11.1, Sodium 135, Potassium 4.3, Chloride Direct 101, Carbon Dioxide 24.3, Anion Gap 10, BUN 20 H, Creatinine 0.49 L, Estim Creat Clear Calc 57.62, Est GFR (MDRD) Non-Af 101, BUN/Creatinine Ratio 40.9 H, Glucose 261 H, Calcium 10.2 07/08/24 06:21: POC Glucose 235 H 07/08/24 11:47: POC Glucose 331 H 07/08/24 16:34: POC Glucose 328 H Micro: Microbiology 07/07/24 11:35 Urine, Clean Catch Legionella Antigen - Final 07/07/24 11:35 Urine, Clean Catch Streptococcus pneumoniae Antigen (M - Final 07/06/24 05:08 Mucosa - Nasopharyngeal Respiratory Panel (PCR) - Final 07/05/24 21:00 Mucosa - Nose SARS-CoV-2, Influenza & RSV (PCR) - Final Physical Exam Const alert, oriented x3, no apparent distress and average body habitus; Negative for healthy appearing or well nourished Constitutional Narrative: Older, white female, sitting the chair at the bedside, appears older than stated age, does not appear toxic, appears comfortable General Appearance: cooperative HEENT normocephalic, head/scalp atraumatic and moist oral mucous membranes HEENT Narrative: No thrush Resp normal respiratory effort, no retractions, no use of accessory muscles and No clear to auscultation bilaterally Resp Narrative: Still crackles at bases bilaterally predominantly diminished bilaterally Auscultation: crackles and wheezes; Negative for rhonchi Cardio regular rate, regular rhythm, S1 normal heart sound, S2 normal heart sound, no murmurs, no rub, no gallops and no clicks GI normal to inspection, nondistended, normoactive bowel sounds, soft to palpation and non-tender Extremity no clubbing, cyanosis or edema Extremity Narrative: Trace bilateral lower extremity edema with wrinkling noted in her distal lower extremities, no cyanosis or clubbing Neuro oriented x3, moves all extremities and no focal motor deficits Neuro Narrative: Generalized weakness with no focal deficits noted Speech: speech normal Psych affect normal Psych Narrative: Very pleasant, interacts appropriately Assessment & Plan Assessment/Plan (1) COPD exacerbation: (2) Acute on chronic hypoxic respiratory failure: PLAN: Plan Acute on chronic hypoxic respiratory failure secondary to acute exacerbation of COPD with bronchiectasis -At baseline patient is on 5 L supplemental nasal cannula/VM -Remains on VM at 8 L -Wean as able -Baseline is 5 L -Diuresis is slow with IV push Lasix so we will start Lasix drip -Continue IV steroids 40 every 8 for now and plan on transitioning to 40 mg tomorrow of oral prednisone -Wean oxygen as able -Echocardiogram done on 07/06/2024 and showed EF of 70% with mild left atrial enlargement, mild diffuse aortic valve thickening and pulmonary artery hypertension with a right ventricular systolic pressure of 44 mmHg -Highly suspect her clinical worsening was related to a decrease in her diuretics -Home diuretics were cut by 50% -Will plan to increase diuresis back up to 40 p.o. twice daily at the time of discharge History of VTE with history of antiphospholipid antibody syndrome -On Coumadin at baseline and INR was supratherapeutic on admission at 3.4 -CTA of the chest suggested possible subsegmental PEs however there was significant motion artifact -With her pulmonary abnormalities VQ scan will not be helpful and CTA is gold standard so we will discontinue VQ scan for now -Restart Coumadin 3 mg daily -Repeat INR in a.m. -Patient does have IVC filter History of pulmonary hypertension secondary to chronic thromboembolic disease -Suspect type I due to medication use -Follows as an outpatient with pulmonary medicine -Echocardiogram does show pulmonary hypertension Essential hypertension/hyperlipidemia -Continue home statin -Continue home Aldactone -Continue home diltiazem -Continue to hold home Lasix and continue IV Lasix 40 IV twice daily Supratherapeutic INR -Restart Coumadin Chronic atrial fibrillation -Continue home diltiazem -Restart Coumadin COPD -Hold home inhalers -Treatment as above DM-2 -Metformin on hold -Cardiac/carb controlled diet -Accu-Cheks as ordered -SSI GERD Plan continue home PPI Depression/anxiety with claustrophobia/agoraphobia -Continue home medication Overactive bladder with urinary incontinence -Continue home medication DVT prophylaxis -INR is therapeutic CODE STATUS -DNR CCA with no intubation Charges/Coding Visit Charges Inpatient E&M: 82765 Subs Hosp L2
[2024-07-08] MEDS: Pravastatin 40 MG Tablet PO (21:54)
[2024-07-09] VITALS (11 sets, daily range): BP systolic 124–134; BP diastolic 44–53; PULSE 69–96; RESP 16–20; TEMP 36.6–37; O2SAT 85–93; BMI 26.5
[2024-07-09 05:34] LABS: Absolute Lymphocyte Count 0.35 X10^3/uL (0.83-4.51); Absolute Neutrophil Count 5.6 X10^3/uL (2.0-7.7); Hematocrit 40.4 % (37-47); Hemoglobin 12.3 g/dL (12.0-15.0); Lymphocyte # 0.35 X10^3/ul (0.83-4.51); Lymphocyte % 5.7 % (19-41); Mean Corp Hgb Conc 30.4 g/dL (32-36); Mean Corpuscular Hgb 22.2 pg (27.0-32.0); Mean Corpuscular Volume 72.9 fL (81-99); Mean Platelet Vol. 10.7 fl (6.2-12.0); Monocyte# 0.17 X10^3/uL; Monocyte% 2.8 % (0-10); NRBC Flagged by Analyzer 0 % (0-5); Neutrophil # 5.61 X10^3/uL (2.7-7.7); Neutrophil % 91.2 % (47-70); POSITIVE DIFFERENTIAL YES; Platelet Count 163 K/mm3 (150-450); RBC Distribution Width CV 17.2 % (11.6-14.6); RBC Distribution Width SD 45.1 fl (35.1-43.9); Red Blood Count 5.54 M/mm3 (4.2-5.4); White Blood Count 6.2 K/mm3 (4.4-11.0)
[2024-07-09 05:53] LABS: International Normalized Ratio 1.6; Prothrombin Time (Protime)PT. 19.7 SECONDS (11.7-14.9)
[2024-07-09 06:00] LABS: Phosphorus 3.3 mg/dL (2.7-4.5)
[2024-07-09 06:01] LABS: Anion Gap 12 (5-15); BUN 20 mg/dL (4-19); BUN/Creat Ratio 36.8 RATIO (10-20); Calcium 9.6 mg/dL (7.6-11.0); Carbon Dioxide 26.4 mmol/L (22.0-29.0); Chloride 98 mmol/L (96-108); Creatinine, Serum 0.54 mg/dL (0.70-1.20); EST Glomerular Filtration Rate 99 (>60); Estimated Creatinine Clearance 58.28 ml/min; Glucose 249 mg/dL (70-99); Magnesium 2.2 mg/dL (1.5-2.2); Potassium 3.8 mmol/L (3.3-5.1); Sodium Level 136 mmol/L (133-145)
[2024-07-09] MEDS: Potassium Chloride Oral Tablet 20 MEQ PO ×3 (06:08→20:34)
[2024-07-09] MEDS: SILDENAFIL CITRATE 20 MG TABLET 60 MG PO ×3 (06:08→20:34)
[2024-07-09] MEDS: Insulin Lispro 100 UNIT/ML INSULN.PEN SC ×3 (06:20→16:55)
[2024-07-09 06:41] LABS: Bedside Glucose 239 mg/dL (74-106)
[2024-07-09] MEDS: Ipratropium/Albuterol Sulfate 3 ML AMPUL.NEB INHALATION ×2 (07:57→22:56)
[2024-07-09] MEDS: Spironolactone 50 MG Tablet PO (09:46)
[2024-07-09] MEDS: Tolterodine Tartrate 2 MG CAP.SA PO (09:47)
[2024-07-09] MEDS: Lactobacillis Acidophilus 1 CAP PO ×4 (09:47→20:34)
[2024-07-09] MEDS: Sertraline 100 MG Tablet PO (09:48)
[2024-07-09] MEDS: Pantoprazole Sodium 40 MG Tablet PO (09:48)
[2024-07-09] MEDS: Cholecalciferol (Vit D3) 125 MCG CAPSULE (5,000 UNITS) PO (09:48)
[2024-07-09] MEDS: dilTIAZem CD 180 MG Capsule 360 MG PO (09:49)
--- NOTE | 2024-07-09 12:33 | PN.HOSP_ITS ---
Reason for Visit Reason for Visit: Shortness of breath Subjective Subjective Patient reports she is feeling much better. We have been able to wean her oxygen to 5 to 6 L nasal cannula from 8 L on Ventimask. Patient states she does feel better and better with diuresis. Her voice is getting stronger. Objective Data Objective Data Vital Signs: Vital Signs Temp Pulse Resp BP Pulse Ox O2 Del Method O2 Flow Rate 98.3 F 84 18 132/44 H 92 High Flow 6 07/09/24 09:45 07/09/24 09:45 07/09/24 09:45 07/09/24 09:45 07/09/24 11:37 07/09/24 09:45 07/09/24 09:45 FiO2 96 07/09/24 07:58 Oxygen Flow Rate (L/min) 6 Oxygen Delivery Method High Flow Weight: 65.9 kg Body Mass Index (BMI) 26.5 Intake & Output: Intake and Output for Last 24 Hours 07/07/24 07/08/24 07/09/24 23:59 23:59 23:59 Intake Total 240 / 240 720 / 840 480 / 480 Output Total 650 / 650 0 / 0 500 / 500 Balance -410 / -410 720 / 840 -20 / -20 Medical Nutrition Assessment Dietitian: Malnutrition Criteria Met Start: 07/06/24 14:47 Freq: Status: Active Protocol: Document 07/06/24 14:47 SB (Rec: 07/06/24 14:48 SB [id number]) Nutrition Malnutrition Evidence of Yes Malnutrition Exists Malnutrition (severe Chronic ): Evidenced By Suboptimal Energy Intake (Severe),Weight Loss (Severe), Physical Changes (Moderate) Clinical Problem Chronic Disease or Condition Related Malnutrition Etiology severe related to inadequate oral intake and increased energy expenditure d/t COPD Signs/Symptoms as evidenced by PO meeting <75% of estimated nutrition needs x 4 months, 23% unintentional weight loss x 4 months and moderate wasting in clavicle region. Status Active Problem Recommendation Dietitian Adjust to consistent carbohydrate diet. Recommendations/ Will order 240ml glucerna shake TID with meals. Changes Will monitor weight trends. If PO and weight continue to declines, recommend nutrition support. Lab / Micro Data 07/09/24 04:35 07/09/24 04:35 Labs: Laboratory Results - last 24 hr 07/08/24 16:34: POC Glucose 328 H 07/09/24 04:35: WBC 6.2, RBC 5.54 H, Hgb 12.3, Hct 40.4, MCV 72.9 L, MCH 22.2 L, MCHC 30.4 L, RDW Std Deviation 45.1 H, RDW Coeff of Brittany 17.2 H, Plt Count 163, MPV 10.7, Immature Gran % (Auto) 0.300, Neut % (Auto) 91.2 H, Lymph % (Auto) 5.7 L, [place] % (Auto) 2.8, Eos % (Auto) 0.0, Baso % (Auto) 0.0, Absolute Neuts (auto) 5.6, Absolute Lymphs (auto) 0.35 L, Nucleated RBC % 0, PT 19.7 H, INR 1.6, Sodium 136, Potassium 3.8, Chloride Direct 98, Carbon Dioxide 26.4, Anion Gap 12, BUN 20 H, Creatinine 0.54 L, Estim Creat Clear Calc 58.28, Est GFR (MDRD) Non-Af 99, BUN/Creatinine Ratio 36.8 H, Glucose 249 H, Calcium 9.6, Phosphorus 3.3, Magnesium 2.2 07/09/24 06:19: POC Glucose 239 H Micro: Microbiology 07/07/24 11:35 Urine, Clean Catch Legionella Antigen - Final 07/07/24 11:35 Urine, Clean Catch Streptococcus pneumoniae Antigen (M - Final 07/06/24 05:08 Mucosa - Nasopharyngeal Respiratory Panel (PCR) - Final 07/05/24 21:00 Mucosa - Nose SARS-CoV-2, Influenza & RSV (PCR) - Final Physical Exam Const alert, oriented x3, no apparent distress and average body habitus; Negative for healthy appearing or well nourished Constitutional Narrative: Older, white female, sitting up in the edge of the bed, nursing at bedside, getting ready to go to the bathroom, voice is much stronger, appears nontoxic, very pleasant General Appearance: cooperative HEENT normocephalic, head/scalp atraumatic, hearing grossly normal bilaterally and moist oral mucous membranes HEENT Narrative: No thrush Resp normal respiratory effort, no retractions, no use of accessory muscles and No clear to auscultation bilaterally Resp Narrative: Diffusely diminished Auscultation: wheezes; Negative for crackles or rhonchi Cardio regular rate, regular rhythm, S1 normal heart sound, S2 normal heart sound, no murmurs, no rub, no gallops and no clicks GI normal to inspection, nondistended, normoactive bowel sounds, soft to palpation and non-tender Extremity normal to inspection, full ROM and no clubbing, cyanosis or edema Extremity Narrative: Trace bilateral extremity edema still present but overall improving Neuro oriented x3, moves all extremities and no focal motor deficits Neuro Narrative: Generalized weakness with no focal deficits noted Speech: speech normal Psych affect normal Psych Narrative: Very pleasant, interacts appropriately Assessment & Plan Assessment/Plan (1) COPD exacerbation: (2) Acute on chronic hypoxic respiratory failure: PLAN: Plan Acute on chronic hypoxic respiratory failure secondary to acute exacerbation of COPD with bronchiectasis -At baseline patient is on 5 L supplemental nasal cannula/VM -Has been weaned to 5 to 6 L nasal cannula at rest -Continue to wean as able -Baseline is 5 L -Continue Lasix drip as respiratory status continues to improve and renal function is stable -Discontinue IV steroids and transition to oral prednisone -Echocardiogram done on 07/06/2024 and showed EF of 70% with mild left atrial enlargement, mild diffuse aortic valve thickening and pulmonary artery hypertension with a right ventricular systolic pressure of 44 mmHg -Highly suspect her clinical worsening was related to a decrease in her diuretics -Home diuretics were cut by 50% -Will plan to increase diuresis back up to 40 p.o. twice daily at the time of discharge History of VTE with history of antiphospholipid antibody syndrome -On Coumadin at baseline and INR was supratherapeutic on admission at 3.4 -CTA of the chest suggested possible subsegmental PEs however there was significant motion artifact -With her pulmonary abnormalities VQ scan will not be helpful due to lung abnormalities at baseline and CTA is gold standard so we will discontinue VQ scan for now -Continue Coumadin 3 mg daily -INR is subtherapeutic so we will start Lovenox 70 twice daily subcu -Patient does have IVC filter History of pulmonary hypertension secondary to chronic thromboembolic disease -Suspect type I due to medication use -Follows as an outpatient with pulmonary medicine -Echocardiogram does show pulmonary hypertension Essential hypertension/hyperlipidemia -Continue home statin -Continue home Aldactone -Continue home diltiazem -Continue Lasix drip Chronic atrial fibrillation -Continue home diltiazem -INR is now subtherapeutic at 1.6 -Start enoxaparin 70 twice daily and continue Coumadin until therapeutic then discontinue Lovenox COPD -Hold home inhalers -Treatment as above DM-2 -Metformin on hold -Cardiac/carb controlled diet -Accu-Cheks as ordered -SSI GERD Plan continue home PPI Depression/anxiety with claustrophobia/agoraphobia -Continue home medication Overactive bladder with urinary incontinence -Continue home medication DVT prophylaxis -INR subtherapeutic -Therapeutic dose Lovenox added CODE STATUS -DNR CCA with no intubation Charges/Coding Visit Charges Inpatient E&M: 20848 Subs Hosp L2
[2024-07-09 12:41] LABS: Bedside Glucose 287 mg/dL (74-106)
[2024-07-09] MEDS: Enoxaparin 80 MG/0.8 ML Syringe 70 MG SC ×2 (14:03→17:33)
[2024-07-09] MEDS: Warfarin (BKC) 3 MG Tablet PO (16:54)
[2024-07-09] MEDS: Furosemide 500 MG in Empty Viaflex 50 mL 1 EACH CONT INF (17:25)
[2024-07-09] MEDS: Piperacil/Tazobactam 3.375 GM in 0.9% Normal Saline (50mL MB+) 50 ML IV ×2 (17:30→21:42)
[2024-07-09 17:36] LABS: Bedside Glucose 266 mg/dL (74-106)
[2024-07-09] MEDS: Pravastatin 40 MG Tablet PO (20:34)
[2024-07-10] VITALS (15 sets, daily range): BP systolic 125–132; BP diastolic 47–51; PULSE 65–75; RESP 15–20; TEMP 36.5–37.4; O2SAT 86–97; BMI 25.9
[2024-07-10] MEDS: Enoxaparin 80 MG/0.8 ML Syringe 70 MG SC ×2 (06:11→17:01)
[2024-07-10] MEDS: Insulin Lispro 100 UNIT/ML INSULN.PEN SC ×3 (06:11→16:52)
[2024-07-10] MEDS: Piperacil/Tazobactam 3.375 GM in 0.9% Normal Saline (50mL MB+) 50 ML IV ×3 (06:11→22:43)
[2024-07-10] MEDS: Potassium Chloride Oral Tablet 20 MEQ PO ×3 (06:11→21:16)
[2024-07-10] MEDS: SILDENAFIL CITRATE 20 MG TABLET 60 MG PO ×3 (06:12→21:15)
[2024-07-10 06:21] LABS: Absolute Lymphocyte Count 0.77 X10^3/uL (0.83-4.51); Absolute Neutrophil Count 6.7 X10^3/uL (2.0-7.7); Basophil# 0.01 X10^3/uL; Basophil% 0.1 % (0-1); Hemoglobin 13.2 g/dL (12.0-15.0); Lymphocyte # 0.77 X10^3/ul (0.83-4.51); Lymphocyte % 9.4 % (19-41); Mean Corp Hgb Conc 30.7 g/dL (32-36); Mean Corpuscular Hgb 22.6 pg (27.0-32.0); Mean Corpuscular Volume 73.5 fL (81-99); Mean Platelet Vol. 11.2 fl (6.2-12.0); Monocyte# 0.63 X10^3/uL; Monocyte% 7.7 % (0-10); NRBC Flagged by Analyzer 0 % (0-5); Neutrophil % 82.3 % (47-70); Platelet Count 187 K/mm3 (150-450); RBC Distribution Width CV 17.9 % (11.6-14.6); RBC Distribution Width SD 45.1 fl (35.1-43.9); Red Blood Count 5.85 M/mm3 (4.2-5.4); White Blood Count 8.2 K/mm3 (4.4-11.0)
[2024-07-10 06:32] LABS: International Normalized Ratio 1.5
[2024-07-10 06:57] LABS: Anion Gap 12 (5-15); BUN 18 mg/dL (4-19); Calcium 9.7 mg/dL (7.6-11.0); Carbon Dioxide 29.8 mmol/L (22.0-29.0); Chloride 97 mmol/L (96-108); Creatinine, Serum 0.53 mg/dL (0.70-1.20); EST Glomerular Filtration Rate 99 (>60); Glucose 210 mg/dL (70-99); Magnesium 2.4 mg/dL (1.5-2.2); Phosphorus 2.6 mg/dL (2.7-4.5); Potassium 3.3 mmol/L (3.3-5.1); Sodium Level 138 mmol/L (133-145)
[2024-07-10 07:06] LABS: Bedside Glucose 230 mg/dL (74-106)
[2024-07-10] MEDS: Ipratropium/Albuterol Sulfate 3 ML AMPUL.NEB INHALATION ×3 (07:36→19:31)
--- NOTE | 2024-07-10 08:50 | CT_ITS ---
PROCEDURE: CTA CHEST W/WO CONTRAST REASON FOR EXAM: PE TECHNIQUE: CTA imaging of the chest with intravenous contrast. 3D reconstructions. COMPARISON: None. FINDINGS: Hardware: None. Lymph nodes: No mediastinal hilar or axillary lymphadenopathy. Heart: Coronary artery calcifications are noted. RV/LV Diameter Ratio: N/A Thoracic Aorta: No thoracic aortic aneurysm or dissection. Pulmonary Vessels: No evidence of acute pulmonary emboli through the major subsegmental branches. Pulmonary artery is enlarged. Most Proximal Level of Embolus (if embolus present): N/A Lungs and Airways: Diffuse emphysematous changes with scarring/atelectasis in the lingula and medial right middle lobe. Pleura: No pleural effusion. No pneumothorax. Upper Abdomen: Splenomegaly Bones: Degenerative changes of the thoracic spine. CT/CTA Chest W/WO Contrast IMPRESSION: 1. No CT evidence of acute pulmonary embolism 2. Enlarged pulmonary artery which can be seen in pulmonary artery hypertensio n 3. Diffuse emphysematous changes One or more dose reduction techniques were used (e.g., Automated exposure contr ol, adjustment of the mA and/or kV according to patient size, use of iterative reconstruction technique). Reading Location: [facility]
[2024-07-10] MEDS: Cholecalciferol (Vit D3) 125 MCG CAPSULE (5,000 UNITS) PO (09:41)
[2024-07-10] MEDS: 0.9% Saline Lock 10 ML Syringe IV ×2 (09:41→19:58)
[2024-07-10] MEDS: Spironolactone 50 MG Tablet PO (09:41)
[2024-07-10] MEDS: Tolterodine Tartrate 2 MG CAP.SA PO (09:42)
[2024-07-10] MEDS: Lactobacillis Acidophilus 1 CAP PO ×3 (09:42→21:15)
[2024-07-10] MEDS: dilTIAZem CD 180 MG Capsule 360 MG PO (09:42)
[2024-07-10] MEDS: Pantoprazole Sodium 40 MG Tablet PO (09:43)
[2024-07-10] MEDS: Sertraline 100 MG Tablet PO (09:43)
[2024-07-10] MEDS: predniSONE 20 MG Tablet 40 MG PO (09:52)
[2024-07-10] MEDS: Linezolid 600 MG 600 MG/300 ML BAG 200 MG IV ×2 (11:14→21:14)
[2024-07-10 12:35] LABS: Bedside Glucose 229 mg/dL (74-106)
--- NOTE | 2024-07-10 12:47 | PCM.PN.HOSP ---
Reason for Visit Reason for Visit: Shortness of breath Subjective Subjective Patient states that she feels like her cough is loosening up and she may be able to produce a sputum sample. She states that often it takes her some time. Still short of breath. Now requiring more oxygen. I am wondering if this is related to an exacerbation of her pulmonary hypertension and if that is the case she may need transfer to tertiary center. Objective Data Objective Data Vital Signs: Vital Signs Temp Pulse Resp BP Pulse Ox O2 Del Method O2 Flow Rate 97.7 F L 71 15 125/48 H 94 High Flow 10 07/10/24 09:00 07/10/24 09:00 07/10/24 09:00 07/10/24 09:00 07/10/24 10:06 07/10/24 09:00 07/10/24 09:00 FiO2 55 07/10/24 10:06 Oxygen Flow Rate (L/min) 10 Oxygen Delivery Method High Flow Weight: 64.5 kg Body Mass Index (BMI) 25.9 Intake & Output: Intake and Output for Last 24 Hours 07/08/24 07/09/24 07/10/24 23:59 23:59 23:59 Intake Total 720 / 840 786.13 / 786.13 93.13 / 93.13 Output Total 0 / 0 500 / 1000 1150 / 1150 Balance 720 / 840 286.13 / -213.87 -1056.87 / -1056.87 Medical Nutrition Assessment Dietitian: Malnutrition Criteria Met Start: 07/06/24 14:47 Freq: Status: Active Protocol: Document 07/06/24 14:47 SB (Rec: 07/06/24 14:48 SB [id number]) Nutrition Malnutrition Evidence of Yes Malnutrition Exists Malnutrition (severe Chronic ): Evidenced By Suboptimal Energy Intake (Severe),Weight Loss (Severe), Physical Changes (Moderate) Clinical Problem Chronic Disease or Condition Related Malnutrition Etiology severe related to inadequate oral intake and increased energy expenditure d/t COPD Signs/Symptoms as evidenced by PO meeting <75% of estimated nutrition needs x 4 months, 23% unintentional weight loss x 4 months and moderate wasting in clavicle region. Status Active Problem Recommendation Dietitian Adjust to consistent carbohydrate diet. Recommendations/ Will order 240ml glucerna shake TID with meals. Changes Will monitor weight trends. If PO and weight continue to declines, recommend nutrition support. Lab / Micro Data 07/10/24 05:33 07/10/24 05:33 Labs: Laboratory Results - last 24 hr 07/09/24 16:51: POC Glucose 266 H 07/10/24 05:33: WBC 8.2, RBC 5.85 H, Hgb 13.2, Hct 43.0, MCV 73.5 L, MCH 22.6 L, MCHC 30.7 L, RDW Std Deviation 45.1 H, RDW Coeff of Brittany 17.9 H, Plt Count 187, MPV 11.2, Immature Gran % (Auto) 0.500, Neut % (Auto) 82.3 H, Lymph % (Auto) 9.4 L, [place] % (Auto) 7.7, Eos % (Auto) 0.0, Baso % (Auto) 0.1, Absolute Neuts (auto) 6.7, Absolute Lymphs (auto) 0.77 L, Nucleated RBC % 0, PT 18.0 H, INR 1.5, Sodium 138, Potassium 3.3, Chloride Direct 97, Carbon Dioxide 29.8 H, Anion Gap 12, BUN 18, Creatinine 0.53 L, Estim Creat Clear Calc 57.70, Est GFR (MDRD) Non-Af 99, BUN/Creatinine Ratio 34.0 H, Glucose 210 H, Calcium 9.7, Phosphorus 2.6 L, Magnesium 2.4 H 07/10/24 06:10: POC Glucose 230 H 07/10/24 11:17: POC Glucose 229 H Micro: Microbiology 07/09/24 19:20 Sputum, Expectorated/Coughed Respiratory Culture - Preliminary 07/07/24 11:35 Urine, Clean Catch Legionella Antigen - Final 07/07/24 11:35 Urine, Clean Catch Streptococcus pneumoniae Antigen (M - Final 07/06/24 05:08 Mucosa - Nasopharyngeal Respiratory Panel (PCR) - Final 07/05/24 21:00 Mucosa - Nose SARS-CoV-2, Influenza & RSV (PCR) - Final Radiography Diagnostic Testing: Radiology Impression Chest CTA 07/10/24 08:50 IMPRESSION: 1. No CT evidence of acute pulmonary embolism 2. Enlarged pulmonary artery which can be seen in pulmonary artery hypertension 3. Diffuse emphysematous changes One or more dose reduction techniques were used (e.g., Automated exposure control, adjustment of the mA and/or kV according to patient size, use of iterative reconstruction technique). Reading Location: [facility] Physical Exam Const alert, oriented x3, no apparent distress and average body habitus; Negative for healthy appearing or well nourished Constitutional Narrative: Older, white female, sitting up in chair at the bedside, now requiring Airvo, voice is stronger however cough is more rhonchorous today than it has been. Previously dry and hacking. General Appearance: cooperative HEENT normocephalic, head/scalp atraumatic and moist oral mucous membranes HEENT Narrative: Mallampati 2-3, no thrush, temporal wasting Eyes EOMs intact bilaterally and conjunctivae normal Eyes Narrative: No scleral icterus Neck supple Neck Narrative: Trachea midline Resp normal respiratory effort, no retractions, no use of accessory muscles and No clear to auscultation bilaterally Resp Narrative: Tactile fremitus and some rhonchi noted especially in the right today Auscultation: wheezes; Negative for crackles or rhonchi Cardio regular rate, regular rhythm, S1 normal heart sound, S2 normal heart sound, no murmurs, no rub, no gallops and no clicks GI normal to inspection, nondistended, normoactive bowel sounds, soft to palpation and non-tender Extremity no clubbing, cyanosis or edema Skin skin turgor normal, no jaundice, no petechiae and no mottling Skin Narrative: Neuro oriented x3, moves all extremities and no focal motor deficits Neuro Narrative: Generalized weakness with no focal deficits noted Speech: speech normal Psych affect normal Psych Narrative: Very pleasant, interacts appropriately Assessment & Plan Assessment/Plan (1) COPD exacerbation: (2) Acute on chronic hypoxic respiratory failure: PLAN: Plan Acute on chronic hypoxic respiratory failure secondary to acute exacerbation of COPD with bronchiectasis/+-pneumonia -At baseline patient is on 5 L supplemental nasal cannula/VM -Has been weaned to 5 to 6 L nasal cannula yesterday and now requiring Airvo at 10 L -Continue to wean as able -Baseline is 5-6 L continuous -I am wondering if this is related to an acute exacerbation of her pulmonary hypertension -Continue Zosyn will add Zyvox for increased pulmonary coverage- -Sputum culture ordered but not yet able to produce -Continue Lasix drip but increase rate from 10-20 -Continue oral prednisone -Echocardiogram done on 07/06/2024 and showed EF of 70% with mild left atrial enlargement, mild diffuse aortic valve thickening and pulmonary artery hypertension with a right ventricular systolic pressure of 44 mmHg -Highly suspect her clinical worsening was related to a decrease in her diuretics -Home diuretics were cut by 50% -Will plan to increase diuresis back up to 40 p.o. twice daily at the time of discharge -Pulmonary medicine consult if they feel this is related to an exacerbation of her pulmonary hypertension may need to consider transfer to tertiary center -Patient follows at [facility] History of VTE with history of antiphospholipid antibody syndrome -On Coumadin at baseline and INR was supratherapeutic on admission at 3.4 -CTA of the chest suggested possible subsegmental PEs however there was significant motion artifact -With her worsening respiratory status repeat CTA was performed today and negative for PE -Continue Coumadin 3 mg daily -INR is currently only 1.5 -With subtherapeutic INR we will continue Lovenox 70 twice daily subcu -Patient does have IVC filter History of pulmonary hypertension secondary to chronic thromboembolic disease -Suspect type I due to medication use -Follows as an outpatient with pulmonary medicine -Echocardiogram does show pulmonary hypertension -May need transfer to tertiary center if they feel that this is an exacerbation of her pulmonary hypertension -Pulmonary medicine consult pending Essential hypertension/hyperlipidemia -Continue home statin -Continue home Aldactone -Continue home diltiazem -Continue Lasix drip Chronic atrial fibrillation -Continue home diltiazem -INR is now subtherapeutic at 1.5 -Continue full dose enoxaparin COPD -Hold home inhalers -Treatment as above DM-2 -Metformin on hold -Glucoses are trending back down with change in prednisone but will watch closely -Will hold off on basal insulin today given improvement -Cardiac/carb controlled diet -Accu-Cheks as ordered -SSI GERD Plan continue home PPI Depression/anxiety with claustrophobia/agoraphobia -Continue home medication Overactive bladder with urinary incontinence -Continue home medication DVT prophylaxis -INR subtherapeutic -Continue therapeutic Lovenox until 48 hours of therapeutic INR CODE STATUS -DNR CCA with no intubation Charges/Coding Visit Charges Inpatient E&M: 51509 [facility] Hosp L3
[2024-07-10] MEDS: Ondansetron ODT 4 MG Tablet PO (12:54)
[2024-07-10] MEDS: proMETHazine 25 MG/ML Syringe IM (13:50)
--- NOTE | 2024-07-10 16:20 | CON.PCM.CC_ITS ---
HPI Consult Data Date of Consult: 07/10/24 HPI Narrative HPI Narrative: AGUSTINA LUGO, is a 69 F who presents [facility] Medical History Diabetes On home oxygen therapy DVT (deep venous thrombosis) TIA (transient ischemic attack) Panic disorder with agoraphobia Osteoporosis Former smoker Pulmonary embolism Urinary tract infection Primary pulmonary hypertension (PPH) COPD (chronic obstructive pulmonary disease) Claustrophobia Anxiety Depression TIA (transient ischemic attack) Type 2 diabetes mellitus Atrial fibrillation Lupus anticoagulant disorder Pulmonary arterial hypertension Home Medications ?Medication ?Instructions ?Recorded ?Last Taken ?Type ambrisentan 10 mg tablet 10 mg PO DAILY pulmonary 04/2507/05/24 09:30 History hypertension albuterol sulfate 90 mcg/actuation 1 puff inhalation Q 6H PRN 08/28/21 07/05/24 Rx aerosol inhaler bronchospasm #8.5 grams blood sugar diagnostic #100 ea 10/09/21 Unknown Rx lancets (OneTouch UltraSoft #200 ea 10/09/21 Unknown R x Lancets) tiotropium bromide 1.25 2 puff inhalation DAILY #4 g shy 12/03/21 Unknown Rx mcg/actuation mist for inhalation (Spiriva Respimat) Oxygen, Home [Home Oxygen] 6 l NASAL CONT Oxygen 05/1507/06/24 History omeprazole 40 mg capsule,delayed 40 mg PO DAILY #90 ca ps 07/22/23 07/05/24 09:02 Rx release budesonide-formoterol HFA 160 2 puff inhalation BID So B 09/10/23 Unknown History mcg-4.5 mcg/actuation aerosol inhaler nystatin 100,000 unit/gram topical 1 applic topical OH N Rash 09/10/23 Unknown History cream metformin 500 mg tablet 500 mg PO BID #180 tabs 05/01/0107/04/24 22:01 Rx 1,000 mg pravastatin 40 mg tablet 40 mg PO QHS #90 tabs 07/04/24 22:00 Rx diltiazem HCl 360 mg 360 mg PO DAILY heart #90 ta bs 11/20/23 07/04/24 22:00 Rx tablet,extended release 24 hr (Matzim [place]) handicap placard #1 ea 08/20/24 Unknown Rx sertraline 100 mg tablet 100 mg PO DAILY #90 tabs 07/05/24 09:00 Rx warfarin 3 mg tablet 3 mg PO DAILY #60 tabs 06/0107/04/24 16:30 Rx alprazolam 0.5 mg tablet (Xanax) 0.5 mg PO BID PRN anx iety #60 tabs 06/03/24 Unknown Rx ondansetron 4 mg disintegrating 4 mg PO Q8H PRN PRN Na usea #10 tabs 06/04/24 Unknown Rx tablet sildenafil (pulm.hypertension) 20 60 mg PO TID pulmona ry hypertension 06/04/24 07/05/24 09:00 History mg tablet ciprofloxacin HCl 0.3 % eye drops See Rx Instructions ophthalmic 06/07/24 07/01/24 Rx (eye) .COMPLEX #2.5 mL furosemide 20 mg tablet 20 mg PO BID #180 tabs 06/0707/05/24 09:30 Rx INR home diagnositic machine #1 ea 06/15/24 Unknown Rx potassium chloride 20 mEq 20 meq PO TID #270 tabs 0211/0207/05/24 09:02 Rx tablet,extended release spironolactone 50 mg tablet 50 mg PO DAILY #90 tabs 07/05/24 09:00 Rx tolterodine 2 mg capsule,extended 2 mg PO DAILY #90 ca ps 07/05/24 07/05/24 09:00 Rx release 24 hr Allergy/AdvReac Type Severity Reaction Status Date / Time doxycycline AdvReac Intermediate Other Verified 07/05/24 16:49 prednisone AdvReac Mild Other Verified 07/05/24 16:49 nitroglycerin AdvReac Other Verified 07/05/24 16:49 Family History Mother COPD (chronic obstructive pulmonary disease) Cancer melanoma Father Heart disease Alcoholism Grandmother Cancer Grandfather Parkinsons disease Surgical History History of embolic filter insertion H/O endoscopy H/O colonoscopy History of placement of ear tubes history of bunion surgery History of tonsillectomy History of cholecystectomy Social History household members: none Smoking Status: Former smoker Tobacco: How many years used: 8 how long ago did patient quit smokin years alcohol intake: never substance use type: does not use what type of physical activity do you participate in: none Objective Data Objective Data Vital Signs: Vital Signs Last response 3 Temperature 36.5 C L 07/10/24 09:00 Temperature Source Temporal 07/10/24 09:00 Pulse Rate 70 07/10/24 13:32 Pulse Strength Weak (1+) 07/09/24 20:30 Respiratory Rate 18 07/10/24 13:32 Respiratory Effort Short of Breath 07/10/24 14:40 Respiratory Depth Normal 07/10/24 14:40 Respiratory Pattern Normal 07/10/24 14:40 Blood Pressure 125/48 H 07/10/24 09:00 Blood Pressure Mean 73 07/10/24 09:00 Blood Pressure Source Monitor 07/10/24 09:00 Blood Pressure Position Semi-Fowlers 07/10/24 09:00 Blood Pressure Location Right Arm 07/10/24 09:00 Pulse Ox 94 07/10/24 10:06 Oxygen Delivery Method Airvo 07/10/24 14:40 Oxygen Flow Rate (L/min) 30 07/10/24 14:40 Fraction of Inspired Oxygen (FIO2) 55 07/10/24 14:40 I&O: I&O Last 24 Hours 3 07/09/24 07/10/24 07/10/24 23:59 11:59 23:59 Intake Total 546.13 / 786.13 93.13 / 652.65 559.52 / 652.65 Output Total 500 / 1000 1150 / 1575 425 / 1575 Balance 46.13 / -213.87 -1056.87 / -922.35 134.52 / -922.35 I&O: Total Stay 3 07/05/24 16:49 thru 07/10/24 13:40 Intake Total 4057.11 Output Total 2725 Balance 1332.11 Current Meds Ordered / Administered: Current meds ordered / Administered 3 Generic Name Dose Route Start Last Admin Trade Name Freq PRN Reason Stop Dose Admin Acetaminophen 650 mg 07/06/24 00:33 Acetaminophen 325 Mg Tablet PO Q6H PRN PRN Pain 1-5/10 Or Fever>100.7 Al Hydroxide/Mg Hydroxide 30 ml 07/06/24 00:33 Mag Hydrox/Al Hydrox/Simeth 30 Ml Udc PO Q6H PRN PRN Gastric Burning Albuterol Sulfate 2.5 mg 07/06/24 00:43 Albuterol 2.5 Mg/3 Ml Vial.Neb. INHALATION Q4H PRN PRN bronchospasm Albuterol/Ipratropium 3 ml 07/06/24 01:00 07/10/24 13:34 Ipratropium/Albuterol Sulfate 3 Ml Ampul.Neb INHALATION 3 ml Q6HWA.RT GRABIEL Administration Alprazolam 0.5 mg 07/06/24 00:33 07/06/24 15:14 Alprazolam 0.5 Mg Tablet PO 0.5 mg BID PRN PRN Administration anxiety Cholecalciferol 125 mcg 07/06/24 10:00 07/10/24 09:41 Cholecalciferol (Vit D3) 125 Mcg Capsule (5,000 Units) PO 125 mcg DAILY GRABIEL Administration Diltiazem HCl 360 mg 07/06/24 10:00 07/10/24 09:42 Diltiazem Cd 180 Mg Capsule PO 360 mg DAILY GRABIEL Administration Enoxaparin Sodium 70 mg 07/09/24 13:30 07/10/24 06:11 Enoxaparin 80 Mg/0.8 Ml Syringe SC 70 mg Q12@0600,1800 GRABIEL Administration Glucagon 1 mg 07/06/24 00:33 Glucagon 1 Mg/Ml Syringe IM X1 PRN HYPOGLYCEMIA Protocol Dextrose 250 mls @ 0 mls/hr 07/06/24 00:33 Dextrose 10%-Water IV .Q0M PRN HYPOGLYCEMIA Protocol As Directed Furosemide 500 mg/ N/A 50 mls @ 2 mls/hr 07/08/24 13:30 07/10/24 12:56 CONT INF 20 mg/hr .Q25H GRABIEL 2 mls/hr Infusion 20 MG/HR Piperacillin Sod/Tazobactam 50 mls @ 12.5 mls/hr 07/09/24 16:33 07/10/24 13:36 Sod 3.375 gm/ Sodium Chloride IV 12.5 mls/hr Q8 GRABIEL Administration Sodium Chloride 100 mls @ 15 mls/hr 07/10/24 06:23 IV .Q6H40M PRN Saline Flush Sodium Chloride 100 mls @ 15 mls/hr 07/10/24 06:23 IV .Q6H40M PRN Additional IVPB Infusion Linezolid 600 mg in 300 mls @ 200 mls/hr 07/10/24 22:00 Zyvox 600mg IV Q12 [facility] Insulin Human Lispro 0 unit 07/06/24 07:00 07/10/24 11:18 Insulin Lispro 100 Unit/Ml Insuln.Pen SC 2 u TIDAC [facility] Administration Protocol Magnesium Hydroxide 30 ml 07/06/24 00:33 Magnesium Hydroxide 30 Ml Udc PO DAILY PRN PRN Constipation Melatonin 3 mg 07/06/24 00:33 Melatonin 3 Mg Tablet PO QHS PRN PRN INSOMNIA Morphine Sulfate 2 mg 07/06/24 00:33 Morphine 2 Mg/Ml Syringe IV Q4H PRN PRN Pain Score 6-10 Nystatin 1 applic 07/06/24 10:00 Nystatin Ointment TOPICAL PRN PRN RASH/TOPICAL IRRITATION Ondansetron HCl 4 mg 07/06/24 00:33 07/10/24 12:54 Ondansetron Odt 4 Mg Tablet PO 4 mg Q8H PRN PRN Administration Nausea Pantoprazole Sodium 40 mg 07/06/24 10:00 07/10/24 09:43 Pantoprazole Sodium 40 Mg Tablet PO 40 mg DAILY [facility] Administration Potassium Chloride 20 meq 07/06/24 06:00 07/10/24 06:11 Potassium Chloride Oral Tablet 20 Meq PO 20 meq TID [facility] Administration Pravastatin Sodium 40 mg 07/06/24 22:00 07/09/24 20:34 Pravastatin 40 Mg Tablet PO 40 mg QHS [facility] Administration Prednisone 40 mg 07/10/24 08:00 07/10/24 09:52 Prednisone 20 Mg Tablet PO 40 mg BREAKFAST [facility] Administration Promethazine HCl 25 mg 07/06/24 00:33 07/10/24 13:50 Promethazine 25 Mg/Ml Syringe IM 25 mg Q6H PRN PRN Administration Breakthrough Nausea/Vomiting Sertraline HCl 100 mg 07/06/24 10:00 07/10/24 09:43 Sertraline 100 Mg Tablet PO 100 mg DAILY [facility] Administration Sildenafil Citrate 60 mg 07/06/24 08:30 07/10/24 06:12 Sildenafil Citrate 20 Mg Tablet PO 60 mg TID GRABIEL Administration Sodium Chloride 10 - 40 ml 07/06/24 00:50 07/10/24 09:41 0.9% Saline Lock 10 Ml Syringe IV 10 ml UD PRN Administration
--- NOTE | 2024-07-10 16:20 | PCMCONS.TICU ---
HPI Consult Data Date of Consult: 07/10/24 HPI Narrative HPI Narrative: AGUSTINA LUGO, is a 69 F who presents [facility] Medical History Diabetes On home oxygen therapy DVT (deep venous thrombosis) TIA (transient ischemic attack) Panic disorder with agoraphobia Osteoporosis Former smoker Pulmonary embolism Urinary tract infection Primary pulmonary hypertension (PPH) COPD (chronic obstructive pulmonary disease) Claustrophobia Anxiety Depression TIA (transient ischemic attack) Type 2 diabetes mellitus Atrial fibrillation Lupus anticoagulant disorder Pulmonary arterial hypertension Home Medications ?Medication ?Instructions ?Recorded ?Last Taken ?Type ambrisentan 10 mg tablet 10 mg PO DAILY pulmonary 04/21/16 07/05/24 09:30 History hypertension albuterol sulfate 90 mcg/actuation 1 puff inhalation Q6H PRN 08/28/21 07/05/24 Rx aerosol inhaler bronchospasm #8.5 grams blood sugar diagnostic #100 ea 10/09/21 Unknown Rx lancets (OneTouch UltraSoft #200 ea 10/09/21 Unknown Rx Lancets) tiotropium bromide 1.25 2 puff inhalation DAILY #4 grams 12/03/21 Unknown Rx mcg/actuation mist for inhalation (Spiriva Respimat) Oxygen, Home [Home Oxygen] 6 l NASAL CONT Oxygen 05/15/23 07/06/24 History omeprazole 40 mg capsule,delayed 40 mg PO DAILY #90 caps 07/22/23 07/05/24 09:02 Rx release budesonide-formoterol HFA 160 2 puff inhalation BID SoB 09/10/23 Unknown History mcg-4.5 mcg/actuation aerosol inhaler nystatin 100,000 unit/gram topical 1 applic topical PRN Rash 09/10/23 Unknown History cream metformin 500 mg tablet 500 mg PO BID #180 tabs 09/16/23 07/04/24 22:01 Rx 1,000 mg pravastatin 40 mg tablet 40 mg PO QHS #90 tabs 09/16/23 07/04/24 22:00 Rx diltiazem HCl 360 mg 360 mg PO DAILY heart #90 tabs 11/20/23 07/04/24 22:00 Rx tablet,extended release 24 hr ([place]) handicap placard #1 ea 12/29/23 Unknown Rx sertraline 100 mg tablet 100 mg PO DAILY #90 tabs 03/02/24 07/05/24 09:00 Rx warfarin 3 mg tablet 3 mg PO DAILY #60 tabs 06/01/24 07/04/24 16:30 Rx alprazolam 0.5 mg tablet (Xanax) 0.5 mg PO BID PRN anxiety #60 tabs 06/03/24 Unknown Rx ondansetron 4 mg disintegrating 4 mg PO Q8H PRN PRN Nausea #10 tabs 06/04/24 Unknown Rx tablet sildenafil (pulm.hypertension) 20 60 mg PO TID pulmonary hypertension 06/04/24 07/05/24 09:00 History mg tablet ciprofloxacin HCl 0.3 % eye drops See Rx Instructions ophthalmic 06/07/24 07/01/24 Rx (eye) .COMPLEX #2.5 mL furosemide 20 mg tablet 20 mg PO BID #180 tabs 06/07/24 07/05/24 09:30 Rx INR home diagnositic machine #1 ea 06/15/24 Unknown Rx potassium chloride 20 mEq 20 meq PO TID #270 tabs 06/16/24 07/05/24 09:02 Rx tablet,extended release spironolactone 50 mg tablet 50 mg PO DAILY #90 tabs 06/16/24 07/05/24 09:00 Rx tolterodine 2 mg capsule,extended 2 mg PO DAILY #90 caps 07/05/24 07/05/24 09:00 Rx release 24 hr Allergy/AdvReac Type Severity Reaction Status Date / Time doxycycline AdvReac Intermediate Other Verified 07/05/24 16:49 prednisone AdvReac Mild Other Verified 07/05/24 16:49 nitroglycerin AdvReac Other Verified 07/05/24 16:49 Family History Mother COPD (chronic obstructive pulmonary disease) Cancer melanoma Father Heart disease Alcoholism Grandmother Cancer Grandfather Parkinsons disease Surgical History History of embolic filter insertion H/O endoscopy H/O colonoscopy History of placement of ear tubes history of bunion surgery History of tonsillectomy History of cholecystectomy Social History household members: none Smoking Status: Former smoker Tobacco: How many years used: 8 how long ago did patient quit smokin years alcohol intake: never substance use type: does not use what type of physical activity do you participate in: none Objective Data Objective Data Vital Signs: Vital Signs Last response Temperature 36.5 C L 07/10/24 09:00 Temperature Source Temporal 07/10/24 09:00 Pulse Rate 70 07/10/24 13:32 Pulse Strength Weak (1+) 07/09/24 20:30 Respiratory Rate 18 07/10/24 13:32 Respiratory Effort Short of Breath 07/10/24 14:40 Respiratory Depth Normal 07/10/24 14:40 Respiratory Pattern Normal 07/10/24 14:40 Blood Pressure 125/48 H 07/10/24 09:00 Blood Pressure Mean 73 07/10/24 09:00 Blood Pressure Source Monitor 07/10/24 09:00 Blood Pressure Position Semi-Fowlers 07/10/24 09:00 Blood Pressure Location Right Arm 07/10/24 09:00 Pulse Ox 94 07/10/24 10:06 Oxygen Delivery Method Airvo 07/10/24 14:40 Oxygen Flow Rate (L/min) 30 07/10/24 14:40 Fraction of Inspired Oxygen (FIO2) 55 07/10/24 14:40 I&O: I&O Last 24 Hours 07/09/24 07/10/24 07/10/24 23:59 11:59 23:59 Intake Total 546.13 / 786.13 93.13 / 652.65 559.52 / 652.65 Output Total 500 / 1000 1150 / 1575 425 / 1575 Balance 46.13 / -213.87 -1056.87 / -922.35 134.52 / -922.35 I&O: Total Stay 07/05/24 16:49 thru 07/10/24 13:40 Intake Total 4057.11 Output Total 2725 Balance 1332.11 Current Meds Ordered / Administered: Current meds ordered / Administered Generic Name Dose Route Start Last Admin Trade Name Freq PRN Reason Stop Dose Admin Acetaminophen 650 mg 07/06/24 00:33 Acetaminophen 325 Mg Tablet PO Q6H PRN PRN Pain 1-5/10 Or Fever>100.7 Al Hydroxide/Mg Hydroxide 30 ml 07/06/24 00:33 Mag Hydrox/Al Hydrox/Simeth 30 Ml Udc PO Q6H PRN PRN Gastric Burning Albuterol Sulfate 2.5 mg 07/06/24 00:43 Albuterol 2.5 Mg/3 Ml Vial.Neb. INHALATION Q4H PRN PRN bronchospasm Albuterol/Ipratropium 3 ml 07/06/24 01:00 07/10/24 13:34 Ipratropium/Albuterol Sulfate 3 Ml Ampul.Neb INHALATION 3 ml Q6HWA.RT GRABIEL Administration Alprazolam 0.5 mg 07/06/24 00:33 07/06/24 15:14 Alprazolam 0.5 Mg Tablet PO 0.5 mg BID PRN PRN Administration anxiety Cholecalciferol 125 mcg 07/06/24 10:00 07/10/24 09:41 Cholecalciferol (Vit D3) 125 Mcg Capsule (5,000 Units) PO 125 mcg DAILY GRABIEL Administration Diltiazem HCl 360 mg 07/06/24 10:00 07/10/24 09:42 Diltiazem Cd 180 Mg Capsule PO 360 mg DAILY GRABIEL Administration Enoxaparin Sodium 70 mg 07/09/24 13:30 07/10/24 06:11 Enoxaparin 80 Mg/0.8 Ml Syringe SC 70 mg Q12@0600,1800 GRABIEL Administration Glucagon 1 mg 07/06/24 00:33 Glucagon 1 Mg/Ml Syringe IM X1 PRN HYPOGLYCEMIA Protocol Dextrose 250 mls @ 0 mls/hr 07/06/24 00:33 Dextrose 10%-Water IV .Q0M PRN HYPOGLYCEMIA Protocol As Directed Furosemide 500 mg/ N/A 50 mls @ 2 mls/hr 07/08/24 13:30 07/10/24 12:56 CONT INF 20 mg/hr .Q25H GRABIEL 2 mls/hr Infusion 20 MG/HR Piperacillin Sod/Tazobactam 50 mls @ 12.5 mls/hr 07/09/24 16:33 07/10/24 13:36 Sod 3.375 gm/ Sodium Chloride IV 12.5 mls/hr Q8 GRABIEL Administration Sodium Chloride 100 mls @ 15 mls/hr 07/10/24 06:23 IV .Q6H40M PRN Saline Flush Sodium Chloride 100 mls @ 15 mls/hr 07/10/24 06:23 IV .Q6H40M PRN Additional IVPB Infusion Linezolid 600 mg in 300 mls @ 200 mls/hr 07/10/24 22:00 Zyvox 600mg IV Q12 [facility] Insulin Human Lispro 0 unit 07/06/24 07:00 07/10/24 11:18 Insulin Lispro 100 Unit/Ml Insuln.Pen SC 2 u TIDAC [facility] Administration Protocol Magnesium Hydroxide 30 ml 07/06/24 00:33 Magnesium Hydroxide 30 Ml Udc PO DAILY PRN PRN Constipation Melatonin 3 mg 07/06/24 00:33 Melatonin 3 Mg Tablet PO QHS PRN PRN INSOMNIA Morphine Sulfate 2 mg 07/06/24 00:33 Morphine 2 Mg/Ml Syringe IV Q4H PRN PRN Pain Score 6-10 Nystatin 1 applic 07/06/24 10:00 Nystatin Ointment TOPICAL PRN PRN RASH/TOPICAL IRRITATION Ondansetron HCl 4 mg 07/06/24 00:33 07/10/24 12:54 Ondansetron Odt 4 Mg Tablet PO 4 mg Q8H PRN PRN Administration Nausea Pantoprazole Sodium 40 mg 07/06/24 10:00 07/10/24 09:43 Pantoprazole Sodium 40 Mg Tablet PO 40 mg DAILY [facility] Administration Potassium Chloride 20 meq 07/06/24 06:00 07/10/24 06:11 Potassium Chloride Oral Tablet 20 Meq PO 20 meq TID [facility] Administration Pravastatin Sodium 40 mg 07/06/24 22:00 07/09/24 20:34 Pravastatin 40 Mg Tablet PO 40 mg QHS [facility] Administration Prednisone 40 mg 07/10/24 08:00 07/10/24 09:52 Prednisone 20 Mg Tablet PO 40 mg BREAKFAST [facility] Administration Promethazine HCl 25 mg 07/06/24 00:33 07/10/24 13:50 Promethazine 25 Mg/Ml Syringe IM 25 mg Q6H PRN PRN Administration Breakthrough Nausea/Vomiting Sertraline HCl 100 mg 07/06/24 10:00 07/10/24 09:43 Sertraline 100 Mg Tablet PO 100 mg DAILY [facility] Administration Sildenafil Citrate 60 mg 07/06/24 08:30 07/10/24 06:12 Sildenafil Citrate 20 Mg Tablet PO 60 mg TID [facility] Administration Sodium Chloride 10 - 40 ml 07/06/24 00:50 07/10/24 09:41 0.9% Saline Lock 10 Ml Syringe IV 10 ml UD PRN Administration SALINE FLUSH Spironolactone 50 mg 07/06/24 10:00 07/10/24 09:41 Spironolactone 50 Mg Tablet PO 50 mg DAILY GRABIEL Administration Protocol Tolterodine Tartrate 2 mg 07/06/24 10:00 07/10/24 09:42 Tolterodine Tartrate 2 Mg Cap.Sa PO 2 mg DAILY GRABIEL Administration Warfarin Sodium 3 mg 07/09/24 17:00 07/09/24 16:54 Warfarin (Bkc) 3 Mg Tablet PO 3 mg DINNER GRABIEL Administration Medical Records Data Medical Nutrition Assessment Dietitian: Malnutrition Criteria Met Start: 07/06/24 14:47 Freq: Status: Active Protocol: Document 07/06/24 14:47 SB (Rec: 07/06/24 14:48 SB [id number]) Nutrition Malnutrition Evidence of Yes Malnutrition Exists Malnutrition (severe Chronic ): Evidenced By Suboptimal Energy Intake (Severe),Weight Loss (Severe), Physical Changes (Moderate) Clinical Problem Chronic Disease or Condition Related Malnutrition Etiology severe related to inadequate oral intake and increased energy expenditure d/t COPD Signs/Symptoms as evidenced by PO meeting <75% of estimated nutrition needs x 4 months, 23% unintentional weight loss x 4 months and moderate wasting in clavicle region. Status Active Problem Recommendation Dietitian Adjust to consistent carbohydrate diet. Recommendations/ Will order 240ml glucerna shake TID with meals. Changes Will monitor weight trends. If PO and weight continue to declines, recommend nutrition support. Lab / Micro Data 07/10/24 05:33 07/10/24 05:33 Labs: Laboratory Results - last 24 hr 07/09/24 16:51: POC Glucose 266 H 07/10/24 05:33: WBC 8.2, RBC 5.85 H, Hgb 13.2, Hct 43.0, MCV 73.5 L, MCH 22.6 L, MCHC 30.7 L, RDW Std Deviation 45.1 H, RDW Coeff of Brittany 17.9 H, Plt Count 187, MPV 11.2, Immature Gran % (Auto) 0.500, Neut % (Auto) 82.3 H, Lymph % (Auto) 9.4 L, Barry % (Auto) 7.7, Eos % (Auto) 0.0, Baso % (Auto) 0.1, Absolute Neuts (auto) 6.7, Absolute Lymphs (auto) 0.77 L, Nucleated RBC % 0, PT 18.0 H, INR 1.5, Sodium 138, Potassium 3.3, Chloride Direct 97, Carbon Dioxide 29.8 H, Anion Gap 12, BUN 18, Creatinine 0.53 L, Estim Creat Clear Calc 57.70, Est GFR (MDRD) Non-Af 99, BUN/Creatinine Ratio 34.0 H, Glucose 210 H, Calcium 9.7, Phosphorus 2.6 L, Magnesium 2.4 H 07/10/24 06:10: POC Glucose 230 H 07/10/24 11:17: POC Glucose 229 H Micro: Microbiology 07/09/24 19:20 Sputum, Expectorated/Coughed Gram Stain - Final Imaging Radiology Impression Chest CTA 07/10/24 08:50 IMPRESSION: 1. No CT evidence of acute pulmonary embolism 2. Enlarged pulmonary artery which can be seen in pulmonary artery hypertension 3. Diffuse emphysematous changes One or more dose reduction techniques were used (e.g., Automated exposure control, adjustment of the mA and/or kV according to patient size, use of iterative reconstruction technique). Reading Location: [facility] Assessment and Plan . Assessment and plan: HPI 69 yo chronically ill woman admitted 07/06/24 w/ dyspnea. Noted tachycardia and hypoxemia requiring high-flow supplemental O2. She has significant chronic lung disease - most details unavailable. She has a remote h/o tobacco use. Also apparently has a h/o VTED and is chronically anti-coagulated. She has a h/o PAH and receives multiple oral agents for this chronically. Details of the PAH are unavailable, but recent TTE estimates PASP around 45 mm Hg. Imaging also demonstrates significant bronchiectasis. Etiology and lung function not known. CTA chest on presentation reveals chronic findings and concern for VTED. F/U scan 07/10/24 reveals no e/o PTED, but findings of bronchiectasis and lingular ATX are significant. She is currently requiring O2 via HHFNC. She c/o primarily of non-productive cough. She appears chronically ill, but in NAD at rest. Supported w/ O2 30 LPM, FiO2 0.5. She tells me that she requires 6 LPM O2 chronically when not hospitalized/ EXAM GEN NAD VS as above HEENT HHFNC NECK supple COR irreg CHEST basilar crackles, prolonged expiration ABD soft EXT minimal edema SKIN w/d MAX grossly NF ASSESSMENT 1. Acute and chronic respiratory failure w/ severe hypoxemia - currently requiring O2 via HHFNC 2. Significant bronchiectasis, w/ acute exacerbation 3. Moderate PAH - details largely unknown 4. H/O VTED and chronic AF requiring systemic A/C 5. Remote tobacco use RECOMMENDATION -supplemental O2 as requiring for SpO2 90% -IV steroids for now -scheduled inhaled BD -IV ABX -continue full A/C -continue chronic regimen for PAH Critical Care Time: 50 min The entirety of this encounter was done via Telemedicine
[2024-07-10] MEDS: Warfarin (BKC) 3 MG Tablet PO (16:54)
[2024-07-10] MEDS: Furosemide 500 MG in Empty Viaflex 50 mL 1 EACH CONT INF (17:20)
[2024-07-10 17:26] LABS: Bedside Glucose 264 mg/dL (74-106)
[2024-07-10] MEDS: MethylPREDNISolone 125 MG/2 ML Vial IV (19:58)
[2024-07-10] MEDS: Pravastatin 40 MG Tablet PO (21:16)
[2024-07-10] MEDS: 0.9% Normal Saline (100mL Bag) 100 ML 15 ML IV (21:20)
[2024-07-11] VITALS (14 sets, daily range): BP systolic 131–152; BP diastolic 49–61; PULSE 64–78; RESP 16–20; TEMP 36.6–36.8; O2SAT 93–99; BMI 25.3
[2024-07-11] MEDS: Enoxaparin 80 MG/0.8 ML Syringe 70 MG SC ×2 (06:10→17:53)
[2024-07-11] MEDS: SILDENAFIL CITRATE 20 MG TABLET 60 MG PO (06:10)
[2024-07-11] MEDS: 0.9% Saline Lock 10 ML Syringe IV ×2 (06:10→10:20)
[2024-07-11] MEDS: Piperacil/Tazobactam 3.375 GM in 0.9% Normal Saline (50mL MB+) 50 ML IV ×3 (06:10→23:05)
[2024-07-11] MEDS: Insulin Lispro 100 UNIT/ML INSULN.PEN SC ×3 (06:11→17:02)
[2024-07-11] MEDS: Potassium Chloride Oral Tablet 20 MEQ PO (06:11)
[2024-07-11 06:34] LABS: Bedside Glucose 275 mg/dL (74-106)
[2024-07-11 07:01] LABS: Absolute Lymphocyte Count 0.33 X10^3/uL (0.83-4.51); Absolute Neutrophil Count 9.3 X10^3/uL (2.0-7.7); Basophil# 0.01 X10^3/uL; Basophil% 0.1 % (0-1); Hematocrit 45.3 % (37-47); Hemoglobin 13.9 g/dL (12.0-15.0); Lymphocyte # 0.33 X10^3/ul (0.83-4.51); Lymphocyte % 3.3 % (19-41); Mean Corp Hgb Conc 30.7 g/dL (32-36); Mean Corpuscular Hgb 22.6 pg (27.0-32.0); Mean Corpuscular Volume 73.8 fL (81-99); Mean Platelet Vol. 10.5 fl (6.2-12.0); Monocyte# 0.14 X10^3/uL; Monocyte% 1.4 % (0-10); NRBC Flagged by Analyzer 0 % (0-5); Neutrophil # 9.32 X10^3/uL (2.7-7.7); Neutrophil % 94.5 % (47-70); POSITIVE DIFFERENTIAL YES; Platelet Count 173 K/mm3 (150-450); RBC Distribution Width SD 44.1 fl (35.1-43.9); Red Blood Count 6.14 M/mm3 (4.2-5.4); White Blood Count 9.9 K/mm3 (4.4-11.0)
[2024-07-11] MEDS: Ipratropium/Albuterol Sulfate 3 ML AMPUL.NEB INHALATION ×2 (07:03→19:26)
[2024-07-11 07:11] LABS: International Normalized Ratio 1.9
[2024-07-11 08:47] LABS: Anion Gap 16 (5-15); BUN 16 mg/dL (4-19); BUN/Creat Ratio 26.8 RATIO (10-20); Calcium 9.7 mg/dL (7.6-11.0); Carbon Dioxide 28.1 mmol/L (22.0-29.0); Chloride 93 mmol/L (96-108); EST Glomerular Filtration Rate 97 (>60); Glucose 259 mg/dL (70-99); Potassium 3.5 mmol/L (3.3-5.1); Sodium Level 137 mmol/L (133-145)
[2024-07-11] MEDS: Acetaminophen 325 MG Tablet 650 MG PO (10:20)
[2024-07-11] MEDS: dilTIAZem CD 180 MG Capsule 360 MG PO (10:20)
[2024-07-11] MEDS: Cholecalciferol (Vit D3) 125 MCG CAPSULE (5,000 UNITS) PO (10:20)
[2024-07-11] MEDS: Lactobacillis Acidophilus 1 CAP PO (10:20)
[2024-07-11] MEDS: Linezolid 600 MG 600 MG/300 ML BAG 200 MG IV ×2 (10:20→21:51)
[2024-07-11] MEDS: Tolterodine Tartrate 2 MG CAP.SA PO (10:20)
[2024-07-11] MEDS: Pantoprazole Sodium 40 MG Tablet PO (10:20)
[2024-07-11] MEDS: Spironolactone 50 MG Tablet PO (10:20)
[2024-07-11] MEDS: MethylPREDNISolone 125 MG/2 ML Vial IV (10:20)
[2024-07-11] MEDS: Sertraline 100 MG Tablet PO (10:20)
[2024-07-11 12:08] LABS: Bedside Glucose 346 mg/dL (74-106)
[2024-07-11] MEDS: Ondansetron ODT 4 MG Tablet PO ×2 (14:00→21:51)
--- NOTE | 2024-07-11 15:25 | PN_ITS ---
Subjective Subjective Patient seen and examined. She had no active complaints. SHe was on airvo at time of review. She denied any fever, chills, cough, chest pain, palpitations, dizziness, nausea, vomiting or any other symptoms. She was brought down to 6L of oxygen later in the day. Objective Data Objective Data Vital Signs: Vital Signs Temp Pulse Resp BP Pulse Ox O2 Del Method O2 Flow Rate 98.2 F 78 16 131/49 H 93 High Flow 6 07/11/24 10:00 07/11/24 10:00 07/11/24 10:00 07/11/24 10:00 07/11/24 10:00 07/11/24 15:16 07/11/24 15:16 FiO2 37 07/11/24 10:00 Oxygen Flow Rate (L/min) 6 Oxygen Delivery Method High Flow Weight: 138 lb 7.205 oz Body Mass Index (BMI) 25.3 Intake & Output: Intake and Output for Last 24 Hours 07/09/24 07/10/24 07/11/24 23:59 23:59 23:59 Intake Total 786.13 / 786.13 978.37 / 978.37 832.92 / 832.92 Output Total 500 / 1000 2175 / 2175 750 / 750 Balance 286.13 / -213.87 -1196.63 / -1196.63 82.92 / 82.92 Medical Nutrition Assessment Dietitian: Malnutrition Criteria Met Start: 07/06/24 14:47 Freq: Status: Active Protocol: Document 07/11/24 14:44 SB (Rec: 07/11/24 14:44 SB [id number]) Nutrition Malnutrition Evidence of Yes Malnutrition Exists Malnutrition (severe Chronic ): Evidenced By Suboptimal Energy Intake (Severe),Weight Loss (Severe), Physical Changes (Moderate) Clinical Problem Chronic Disease or Condition Related Malnutrition Etiology severe related to inadequate oral intake and increased energy expenditure d/t COPD Signs/Symptoms as evidenced by PO meeting <75% of estimated nutrition needs x 4 months, 25% unintentional weight loss x 4 months and moderate wasting in clavicle region. Status Active Problem Recommendation Dietitian Continue consistent carbohydrate diet and 240ml Recommendations/ glucerna shake TID with meals. Changes Will order vanilla fortified pudding with dinner. Will monitor weight trends. If PO and weight continue to declines, recommend nutrition support. Lab / Micro Data 07/11/24 06:32 07/11/24 06:32 Labs: Laboratory Results - last 24 hr 07/10/24 16:43: POC Glucose 264 H 07/11/24 06:08: POC Glucose 275 H 07/11/24 06:32: WBC 9.9, RBC 6.14 H, Hgb 13.9, Hct 45.3, MCV 73.8 L, MCH 22.6 L, MCHC 30.7 L, RDW Std Deviation 44.1 H, RDW Coeff of Brittany 18.0 H, Plt Count 173, MPV 10.5, Immature Gran % (Auto) 0.700, Neut % (Auto) 94.5 H, Lymph % (Auto) 3.3 L, [place] % (Auto) 1.4, Eos % (Auto) 0.0, Baso % (Auto) 0.1, Absolute Neuts (auto) 9.3 H, Absolute Lymphs (auto) 0.33 L, Nucleated RBC % 0, PT 22.0 H, INR 1.9, Sodium 137, Potassium 3.5, Chloride Direct 93 L, Carbon Dioxide 28.1, Anion Gap 16 H, BUN 16, Creatinine 0.60 L, Estim Creat Clear Calc 57.00, Est GFR (MDRD) Non-Af 97, BUN/Creatinine Ratio 26.8 H, Glucose 259 H, Calcium 9.7 07/11/24 11:44: POC Glucose 346 H Micro: Microbiology 07/09/24 19:20 Sputum, Expectorated/Coughed Gram Stain - Final 07/09/24 19:20 Sputum, Expectorated/Coughed Respiratory Culture - Preliminary Staphylococcus aureus Gram positive eddie 07/07/24 11:35 Urine, Clean Catch Legionella Antigen - Final 07/07/24 11:35 Urine, Clean Catch Streptococcus pneumoniae Antigen (M - Final 07/06/24 05:08 Mucosa - Nasopharyngeal Respiratory Panel (PCR) - Final 07/05/24 21:00 Mucosa - Nose SARS-CoV-2, Influenza & RSV (PCR) - Final Physical Exam Const alert, oriented x3, no apparent distress and well nourished General Appearance: cooperative HEENT normocephalic, head/scalp atraumatic and moist oral mucous membranes Eyes PERRL and EOMs intact bilaterally Neck supple and no JVD Lymph Lymphatic: no lymphadenopathy noted and no lymphedema noted Resp Resp Narrative: mildly diminished breath sounds bibasally, no wheezes or crackles. On 6L of oxygen by nasal canula Cardio regular rate, regular rhythm, S1 normal heart sound, S2 normal heart sound and no murmurs GI normal to inspection, nondistended, normoactive bowel sounds, soft to palpation, non-tender and non-distended Extremity normal capillary refill, no clubbing, cyanosis or edema and no calf tenderness General Extremity: no tenderness to palpation of joints or extremities Skin General Skin Exam: no breakdown Neuro CN's II-XII intact bilaterally, no focal motor deficits and no sensory deficits noted Motor Exam: strength 5/5 throughout and general weakness Psych thought process normal, cooperative and affect normal Appearance: appropriate Assessment & Plan Assessment/Plan (1) Acute on chronic hypoxic respiratory failure: (2) COPD exacerbation: PLAN: Plan #Acute on chronic hypoxic respiratory failure due to acute COPD exacerbation and bronchiectasis with pneumonia * was on AirVO this morning but weaned down to 6L * Usually on 6 L baseline. On IV Zosyn and Zyvox. Sputum cultures ordered and pending. * On Lasix drip. Also on oral prednisone. * 2D echo showed EF of 70% with mild left atrial enlargement with mild diffuse aortic valve thickening and pulmonary artery systolic pressure of of 44mmHg. * pulmonology on board. * titrate oxygen to maintain sats >90% * breathing treatment with bronchodilators. * #History of VTE in the setting of history of antiphospholipid antibody syndrome * On Coumadin. INR is therapeutic. CT of the chest showed possible subsegmental PE but there was significant motion artifact. * Repeat CTA showed no evidence of PE. * on coumadin with lovenox bridging. * has an IVC filter in [facility]. * #History of pulmonary hypertension likely due to chronic thromboembolic phenomenon: On Ambrisentan and sildenafil #Benign essential hypertension; on aldactone and cardizem. On lasix drip also #Chronic atrial fibrillation: on cardizem. On coumadin with lovenox for bridging. # Type 2 diabetes mellitus: Metformin on hold. Sliding scale. Accu-Cheks ACHS. #GERD: On PPI #Depression and anxiety with claustrophobia: On sertraline #History of overactive bladder: On tolterodine #DVT prophylaxis: On Coumadin with Lovenox for bridging until INR is therapeutic. Charges/Coding Visit Charges Inpatient E&M: 49450 Subs Hosp L2
[2024-07-11] MEDS: proMETHazine 25 MG/ML Syringe IM ×2 (15:40→23:01)
[2024-07-11 17:35] LABS: Bedside Glucose 301 mg/dL (74-106)
[2024-07-11] MEDS: Warfarin (BKC) 3 MG Tablet PO (17:52)
[2024-07-11] MEDS: Jantoven 2 MG Tablet PO (17:52)
[2024-07-11] MEDS: Furosemide 500 MG in Empty Viaflex 50 mL 1 EACH CONT INF (18:35)
[2024-07-11 22:25] LABS: Bedside Glucose 382 mg/dL (74-106)
[2024-07-12] VITALS (9 sets, daily range): BP systolic 128–142; BP diastolic 47–52; PULSE 62–77; RESP 12–20; TEMP 35.7–37.1; O2SAT 94–98; BMI 25.4
[2024-07-12] MEDS: Piperacil/Tazobactam 3.375 GM in 0.9% Normal Saline (50mL MB+) 50 ML IV ×3 (04:37→20:21)
[2024-07-12] MEDS: SILDENAFIL CITRATE 20 MG TABLET 60 MG PO ×3 (04:41→20:22)
[2024-07-12] MEDS: Potassium Chloride Oral Tablet 20 MEQ PO ×2 (04:42→20:22)
[2024-07-12] MEDS: Enoxaparin 80 MG/0.8 ML Syringe 70 MG SC (04:52)
[2024-07-12 06:23] LABS: Absolute Lymphocyte Count 0.48 X10^3/uL (0.83-4.51); Absolute Neutrophil Count 9.9 X10^3/uL (2.0-7.7); Basophil# 0.01 X10^3/uL; Basophil% 0.1 % (0-1); Hematocrit 43.9 % (37-47); Hemoglobin 13.7 g/dL (12.0-15.0); Lymphocyte # 0.48 X10^3/ul (0.83-4.51); Lymphocyte % 4.4 % (19-41); Mean Corp Hgb Conc 31.2 g/dL (32-36); Mean Corpuscular Hgb 22.9 pg (27.0-32.0); Mean Corpuscular Volume 73.3 fL (81-99); Mean Platelet Vol. 10.6 fl (6.2-12.0); Monocyte# 0.48 X10^3/uL; Monocyte% 4.4 % (0-10); NRBC Flagged by Analyzer 0 % (0-5); Neutrophil % 90.6 % (47-70); POSITIVE DIFFERENTIAL YES; Platelet Count 191 K/mm3 (150-450); RBC Distribution Width CV 16.4 % (11.6-14.6); RBC Distribution Width SD 42.7 fl (35.1-43.9); Red Blood Count 5.99 M/mm3 (4.2-5.4); White Blood Count 10.9 K/mm3 (4.4-11.0)
[2024-07-12 06:35] LABS: Anion Gap 12 (5-15); BUN 20 mg/dL (4-19); BUN/Creat Ratio 30.6 RATIO (10-20); Calcium,Total 9.9 mg/dL (7.6-11.0); Chloride 92 mmol/L (98-108); Creatinine, Serum 0.66 mg/dL (0.70-1.20); EST Glomerular Filtration Rate 94 (>60); Estimated Creatinine Clearance 57.08 ml/min (50-250); Glucose 307 mg/dL (70-99); Potassium 3.2 mmol/L (3.3-5.1); Sodium Level 135 mmol/L (133-145)
[2024-07-12] MEDS: Insulin Lispro 100 UNIT/ML INSULN.PEN SC ×3 (06:40→17:13)
[2024-07-12 06:48] LABS: International Normalized Ratio 2.9; Prothrombin Time (Protime)PT. 31.1 SECONDS (11.7-14.9)
[2024-07-12 07:05] LABS: Bedside Glucose 249 mg/dL (74-106)
[2024-07-12] MEDS: Ipratropium/Albuterol Sulfate 3 ML AMPUL.NEB INHALATION ×3 (07:13→19:50)
[2024-07-12] MEDS: dilTIAZem CD 180 MG Capsule 360 MG PO (08:55)
[2024-07-12] MEDS: Potassium Chloride Oral Tablet 20 MEQ 40 MEQ PO (08:55)
[2024-07-12] MEDS: Spironolactone 50 MG Tablet PO (08:55)
[2024-07-12] MEDS: Sertraline 100 MG Tablet PO (08:56)
[2024-07-12] MEDS: Lactobacillis Acidophilus 1 CAP PO ×2 (08:56→20:22)
[2024-07-12] MEDS: Cholecalciferol (Vit D3) 125 MCG CAPSULE (5,000 UNITS) PO (08:56)
[2024-07-12] MEDS: Pantoprazole Sodium 40 MG Tablet PO (08:56)
[2024-07-12] MEDS: Tolterodine Tartrate 2 MG CAP.SA PO (08:56)
[2024-07-12] MEDS: Linezolid 600 MG Tablet PO ×2 (08:56→20:22)
[2024-07-12] MEDS: MethylPREDNISolone 125 MG/2 ML Vial IV (08:58)
--- NOTE | 2024-07-12 11:27 | PN_ITS ---
Subjective Subjective Patient seen and examined. She says she is feeling much better. She is will be Airvo and is actually down to 4 L of oxygen today. She is denying any cough or chest pain, palpitations, dizziness, nausea or vomiting. Review of systems otherwise negative. Objective Data Objective Data Vital Signs: Vital Signs Temp Pulse Resp BP Pulse Ox O2 Del Method O2 Flow Rate 98.7 F 73 17 129/49 H 94 Nasal Cannula 4 07/12/24 08:47 07/12/24 08:47 07/12/24 08:47 07/12/24 08:47 07/12/24 09:13 07/12/24 09:13 07/12/24 09:13 FiO2 37 07/11/24 10:00 Oxygen Flow Rate (L/min) 4 Oxygen Delivery Method Nasal Cannula Weight: 138 lb 14.259 oz Body Mass Index (BMI) 25.4 Intake & Output: Intake and Output for Last 24 Hours 07/10/24 07/11/24 07/12/24 23:59 23:59 23:59 Intake Total 978.37 / 978.37 1672.92 / 1672.92 600 / 600 Output Total 2175 / 2175 1475 / 1475 700 / 700 Balance -1196.63 / -1196.63 197.92 / 197.92 -100 / -100 Medical Nutrition Assessment Dietitian: Malnutrition Criteria Met Start: 07/06/24 14:47 Freq: Status: Active Protocol: Document 07/11/24 14:44 SB (Rec: 07/11/24 14:44 SB [id number]) Nutrition Malnutrition Evidence of Yes Malnutrition Exists Malnutrition (severe Chronic ): Evidenced By Suboptimal Energy Intake (Severe),Weight Loss (Severe), Physical Changes (Moderate) Clinical Problem Chronic Disease or Condition Related Malnutrition Etiology severe related to inadequate oral intake and increased energy expenditure d/t COPD Signs/Symptoms as evidenced by PO meeting <75% of estimated nutrition needs x 4 months, 25% unintentional weight loss x 4 months and moderate wasting in clavicle region. Status Active Problem Recommendation Dietitian Continue consistent carbohydrate diet and 240ml Recommendations/ glucerna shake TID with meals. Changes Will order vanilla fortified pudding with dinner. Will monitor weight trends. If PO and weight continue to declines, recommend nutrition support. Lab / Micro Data 07/12/24 05:33 07/12/24 05:33 Labs: Laboratory Results - last 24 hr 07/11/24 11:44: POC Glucose 346 H 07/11/24 17:00: POC Glucose 301 H 07/11/24 22:04: POC Glucose 382 H 07/12/24 05:33: WBC 10.9, RBC 5.99 H, Hgb 13.7, Hct 43.9, MCV 73.3 L, MCH 22.9 L , MCHC 31.2 L, RDW Std Deviation 42.7, RDW Coeff of Brittany 16.4 H, Plt Count 191, MPV 10.6, Immature Gran % (Auto) 0.500, Neut % (Auto) 90.6 H, Lymph % (Auto) 4.4 L, [place] % (Auto) 4.4, Eos % (Auto) 0.0, Baso % (Auto) 0.1, Absolute Neuts (auto) 9.9 H, Absolute Lymphs (auto) 0.48 L, Nucleated RBC % 0, PT 31.1 H, INR 2.9, Sodium 135, Potassium 3.2 L, Chloride 92 L, Carbon Dioxide 32.0, Anion Gap 12, B UN 20 H, Creatinine 0.66 L, Estim Creat Clear Calc 57.08, Est GFR (MDRD) Non-Af 94, BUN/Creatinine Ratio 30.6 H, Glucose 307 H, Calcium 9.9 07/12/24 06:39: POC Glucose 249 H Micro: Microbiology 07/09/24 19:20 Sputum, Expectorated/Coughed Gram Stain - Final 07/09/24 19:20 Sputum, Expectorated/Coughed Respiratory Culture - Preliminary Staphylococcus aureus Corynebacterium striatum Presumptive C albicans 07/07/24 11:35 Urine, Clean Catch Legionella Antigen - Final 07/07/24 11:35 Urine, Clean Catch Streptococcus pneumoniae Antigen (M - Final 07/06/24 05:08 Mucosa - Nasopharyngeal Respiratory Panel (PCR) - Final 07/05/24 21:00 Mucosa - Nose SARS-CoV-2, Influenza & RSV (PCR) - Final Physical Exam Const alert, oriented x3, no apparent distress and healthy appearing General Appearance: cooperative HEENT normocephalic, head/scalp atraumatic, hearing grossly normal bilaterally and moist oral mucous membranes Eyes PERRL, EOMs intact bilaterally and conjunctivae normal Neck no lymphadenopathy, supple and no JVD Neck Narrative: Trachea midline Lymph Lymphatic: no lymphadenopathy noted and no lymphedema noted Resp Resp Narrative: mildly diminished breath sounds bibasally, no wheezes or crackles. On 4 L of oxygen by nasal canula Auscultation: wheezes; Negative for crackles or rhonchi Cardio regular rate, regular rhythm, S1 normal heart sound and S2 normal heart sound GI normal to inspection, nondistended, normoactive bowel sounds, soft to palpation, non-tender and non-distended Extremity normal to inspection, full ROM, normal capillary refill, no clubbing, cyanosis or edema and no calf tenderness General Extremity: no tenderness to palpation of joints or extremities Skin skin turgor normal Skin Narrative: General Skin Exam: no breakdown Neuro oriented x3, CN's II-XII intact bilaterally, moves all extremities, no focal motor deficits and no sensory deficits noted Neuro Narrative: Generalized weakness with no focal deficits noted Sensorium / Orientation: awake and alert Speech: speech normal Motor Exam: strength 5/5 throughout and general weakness Psych thought process normal, cooperative and affect normal Psych Narrative: Very pleasant, interacts appropriately Appearance: appropriate Assessment & Plan Assessment/Plan (1) Acute on chronic hypoxic respiratory failure: (2) COPD exacerbation: PLAN: Plan #Acute on chronic hypoxic respiratory failure due to acute COPD exacerbation and bronchiectasis with pneumonia * down to 4L this morning. * Usually on 6 L baseline. On IV Zosyn and Zyvox. Sputum cultures ordered and pending. * On Lasix drip. Also on oral prednisone. * 2D echo showed EF of 70% with mild left atrial enlargement with mild diffuse aortic valve thickening and pulmonary artery systolic pressure of of 44mmHg. * pulmonology on board. * titrate oxygen to maintain sats >90% * breathing treatment with bronchodilators. * DC lasix drip also and switch to PO lasix * #History of VTE in the setting of history of antiphospholipid antibody syndrome * On Coumadin. INR is therapeutic. CT of the chest showed possible subsegmental PE but there was significant motion artifact. * Repeat CTA showed no evidence of PE. * on coumadin with lovenox bridging. INR is 2.9 today. Will dc lovenox * has an IVC filter in place. * #History of pulmonary hypertension likely due to chronic thromboembolic phenomenon: On Ambrisentan and sildenafil #Benign essential hypertension; on aldactone and cardizem. On lasix drip also. Lasix drip dc'd today. #Chronic atrial fibrillation: on cardizem. On coumadin with lovenox for bridging. # Type 2 diabetes mellitus: Metformin on hold. Sliding scale. Accu-Cheks ACHS. #GERD: On PPI #Depression and anxiety with claustrophobia: On sertraline #History of overactive bladder: On tolterodine #DVT prophylaxis: on coumadin. DC therapeutic lovenox as INR is therapeutic. Charges/Coding Visit Charges Inpatient E&M: 72662 Subs Hosp L2
[2024-07-12] MEDS: 0.9% Saline Lock 10 ML Syringe IV (11:43)
[2024-07-12 12:08] LABS: Bedside Glucose 256 mg/dL (74-106)
[2024-07-12] MEDS: Ondansetron ODT 4 MG Tablet PO (14:48)
[2024-07-12] MEDS: Warfarin (BKC) 3 MG Tablet PO (17:12)
[2024-07-12] MEDS: Furosemide 40 MG Tablet PO (17:12)
[2024-07-12 17:38] LABS: Bedside Glucose 292 mg/dL (74-106)
[2024-07-12] MEDS: ALPRAZolam 0.5 MG Tablet PO (18:33)
[2024-07-12] MEDS: Pravastatin 40 MG Tablet PO (20:22)
[2024-07-12] MEDS: Calcium Carbonate 500 MG Tablet 1000 MG PO (20:34)
[2024-07-12 21:16] LABS: Bedside Glucose 296 mg/dL (74-106)
[2024-07-13] VITALS (9 sets, daily range): BP systolic 126–136; BP diastolic 40–62; PULSE 65–80; RESP 16–20; TEMP 36.1–36.8; O2SAT 86–97
[2024-07-13] MEDS: Piperacil/Tazobactam 3.375 GM in 0.9% Normal Saline (50mL MB+) 50 ML IV ×3 (05:05→21:05)
[2024-07-13] MEDS: SILDENAFIL CITRATE 20 MG TABLET 60 MG PO ×3 (05:06→20:59)
[2024-07-13] MEDS: Potassium Chloride Oral Tablet 20 MEQ PO ×3 (05:09→20:59)
[2024-07-13 05:19] LABS: Absolute Lymphocyte Count 0.52 X10^3/uL (0.83-4.51); Absolute Neutrophil Count 10.2 X10^3/uL (2.0-7.7); Basophil# 0.01 X10^3/uL; Basophil% 0.1 % (0-1); Hematocrit 42.6 % (37-47); Hemoglobin 12.9 g/dL (12.0-15.0); Lymphocyte # 0.52 X10^3/ul (0.83-4.51); Lymphocyte % 4.6 % (19-41); Mean Corp Hgb Conc 30.3 g/dL (32-36); Mean Corpuscular Hgb 22.4 pg (27.0-32.0); Mean Corpuscular Volume 73.8 fL (81-99); Mean Platelet Vol. 10.7 fl (6.2-12.0); Monocyte# 0.54 X10^3/uL; Monocyte% 4.8 % (0-10); NRBC Flagged by Analyzer 0 % (0-5); Neutrophil # 10.17 X10^3/uL (2.7-7.7); Neutrophil % 90.1 % (47-70); POSITIVE DIFFERENTIAL YES; Platelet Count 183 K/mm3 (150-450); RBC Distribution Width CV 16.6 % (11.6-14.6); RBC Distribution Width SD 43.7 fl (35.1-43.9); Red Blood Count 5.77 M/mm3 (4.2-5.4); White Blood Count 11.3 K/mm3 (4.4-11.0)
[2024-07-13 05:54] LABS: Anion Gap 8 (5-15); BUN 27 mg/dL (4-19); BUN/Creat Ratio 38.7 RATIO (10-20); Calcium,Total 10.2 mg/dL (7.6-11.0); Carbon Dioxide 34.8 mmol/L (21.0-32.0); Chloride 95 mmol/L (98-108); EST Glomerular Filtration Rate 93 (>60); Estimated Creatinine Clearance 57.08 ml/min (50-250); Glucose 259 mg/dL (70-99); Sodium Level 137 mmol/L (133-145)
[2024-07-13 05:55] LABS: International Normalized Ratio 3.9; Prothrombin Time (Protime)PT. 39.1 SECONDS (11.7-14.9)
[2024-07-13] MEDS: Insulin Lispro 100 UNIT/ML INSULN.PEN SC ×3 (06:36→16:57)
[2024-07-13 06:55] LABS: Bedside Glucose 256 mg/dL (74-106)
[2024-07-13] MEDS: Ipratropium/Albuterol Sulfate 3 ML AMPUL.NEB INHALATION ×3 (07:08→19:20)
[2024-07-13] MEDS: Spironolactone 50 MG Tablet PO (09:30)
[2024-07-13] MEDS: Lactobacillis Acidophilus 1 CAP PO ×4 (09:30→20:59)
[2024-07-13] MEDS: Tolterodine Tartrate 2 MG CAP.SA PO (09:31)
[2024-07-13] MEDS: dilTIAZem CD 180 MG Capsule 360 MG PO (09:31)
[2024-07-13] MEDS: Furosemide 40 MG Tablet PO ×2 (09:31→16:58)
[2024-07-13] MEDS: Cholecalciferol (Vit D3) 125 MCG CAPSULE (5,000 UNITS) PO (09:32)
[2024-07-13] MEDS: MethylPREDNISolone 125 MG/2 ML Vial IV (09:32)
[2024-07-13] MEDS: Linezolid 600 MG Tablet PO ×2 (09:32→20:59)
[2024-07-13] MEDS: 0.9% Saline Lock 10 ML Syringe IV ×3 (09:32→21:00)
[2024-07-13] MEDS: Pantoprazole Sodium 40 MG Tablet PO (09:32)
[2024-07-13] MEDS: Sertraline 100 MG Tablet PO (09:36)
[2024-07-13 12:28] LABS: Bedside Glucose 288 mg/dL (74-106)
--- NOTE | 2024-07-13 13:23 | PN_ITS ---
Subjective Subjective Patient seen and examined. She had no complaints and felt well. She was on 5 L at time of review this morning but subsequently went up to 7 L. She denies any chest pain, palpitations, nausea or vomiting. Review of systems otherwise negative. Objective Data Objective Data Vital Signs: Vital Signs Temp Pulse Resp BP Pulse Ox O2 Del Method O2 Flow Rate 98.3 F 72 18 136/60 H 94 Nasal Cannula 7 07/13/24 09:24 07/13/24 09:24 07/13/24 09:24 07/13/24 09:24 07/13/24 09:29 07/13/24 09:29 07/13/24 09:29 FiO2 5 07/13/24 03:15 Oxygen Flow Rate (L/min) 7 Oxygen Delivery Method Nasal Cannula Weight: 138 lb 14.259 oz Body Mass Index (BMI) 25.4 Intake & Output: Intake and Output for Last 24 Hours 07/11/24 07/12/24 07/13/24 23:59 23:59 23:59 Intake Total 1672.92 / 1672.92 1159.83 / 1159.83 100 / 100 Output Total 1475 / 1475 1200 / 1400 500 / 500 Balance 197.92 / 197.92 -40.17 / -240.17 -400 / -400 Medical Nutrition Assessment Dietitian: Malnutrition Criteria Met Start: 07/06/24 14:47 Freq: Status: Active Protocol: Document 07/11/24 14:44 SB (Rec: 07/11/24 14:44 SB [id number]) Nutrition Malnutrition Evidence of Yes Malnutrition Exists Malnutrition (severe Chronic ): Evidenced By Suboptimal Energy Intake (Severe),Weight Loss (Severe), Physical Changes (Moderate) Clinical Problem Chronic Disease or Condition Related Malnutrition Etiology severe related to inadequate oral intake and increased energy expenditure d/t COPD Signs/Symptoms as evidenced by PO meeting <75% of estimated nutrition needs x 4 months, 25% unintentional weight loss x 4 months and moderate wasting in clavicle region. Status Active Problem Recommendation Dietitian Continue consistent carbohydrate diet and 240ml Recommendations/ glucerna shake TID with meals. Changes Will order vanilla fortified pudding with dinner. Will monitor weight trends. If PO and weight continue to declines, recommend nutrition support. Lab / Micro Data 07/13/24 04:41 07/13/24 04:41 Labs: Laboratory Results - last 24 hr 07/12/24 17:09: POC Glucose 292 H 07/12/24 20:25: POC Glucose 296 H 07/13/24 04:41: WBC 11.3 H, RBC 5.77 H, Hgb 12.9, Hct 42.6, MCV 73.8 L, MCH 22.4 L, MCHC 30.3 L, RDW Std Deviation 43.7, RDW Coeff of Brittany 16.6 H, Plt Count 183, MPV 10.7, Immature Gran % (Auto) 0.400, Neut % (Auto) 90.1 H, Lymph % (Auto) 4.6 L, [place] % (Auto) 4.8, Eos % (Auto) 0.0, Baso % (Auto) 0.1, Absolute Neuts (auto) 10.2 H, Absolute Lymphs (auto) 0.52 L, Nucleated RBC % 0, PT 39.1 H, INR 3.9, Sodium 137, Potassium 4.0, Chloride 95 L, Carbon Dioxide 34.8 H, Anion Gap 8, B UN 27 H, Creatinine 0.70, Estim Creat Clear Calc 57.08, Est GFR (MDRD) Non-Af 93, BUN/Creatinine Ratio 38.7 H, Glucose 259 H, Calcium 10.2 07/13/24 06:35: POC Glucose 256 H 07/13/24 11:41: POC Glucose 288 H Micro: Microbiology 07/09/24 19:20 Sputum, Expectorated/Coughed Gram Stain - Final 07/09/24 19:20 Sputum, Expectorated/Coughed Respiratory Culture - Final Staphylococcus aureus Corynebacterium striatum Presumptive C albicans 07/07/24 11:35 Urine, Clean Catch Legionella Antigen - Final 07/07/24 11:35 Urine, Clean Catch Streptococcus pneumoniae Antigen (M - Final 07/06/24 05:08 Mucosa - Nasopharyngeal Respiratory Panel (PCR) - Final 07/05/24 21:00 Mucosa - Nose SARS-CoV-2, Influenza & RSV (PCR) - Final Physical Exam Const alert, oriented x3 and no apparent distress Constitutional Narrative: frail General Appearance: cooperative HEENT normocephalic, head/scalp atraumatic and hearing grossly normal bilaterally HEENT Narrative: dry oral mucosa Eyes PERRL, EOMs intact bilaterally and conjunctivae normal Neck no lymphadenopathy, supple and no JVD Neck Narrative: Trachea midline Lymph Lymphatic: no lymphadenopathy noted and no lymphedema noted Resp normal respiratory effort, no retractions, no use of accessory muscles and No clear to auscultation bilaterally Resp Narrative: mildly diminished breath sounds bibasally, no wheezes or crackles. On 7 L of oxygen by nasal canula Cardio regular rate, regular rhythm, S1 normal heart sound, S2 normal heart sound, no murmurs and no clicks GI normal to inspection, nondistended, normoactive bowel sounds, soft to palpation, non-tender and non-distended Extremity normal to inspection, full ROM and normal capillary refill General Extremity: no tenderness to palpation of joints or extremities Skin skin turgor normal, no jaundice, no petechiae and no mottling Skin Narrative: General Skin Exam: no breakdown Neuro oriented x3, CN's II-XII intact bilaterally, moves all extremities, no focal motor deficits and no sensory deficits noted Sensorium / Orientation: awake and alert Speech: speech normal Motor Exam: strength 5/5 throughout and general weakness Psych thought process normal, cooperative and affect normal Appearance: appropriate Assessment & Plan Assessment/Plan (1) Acute on chronic hypoxic respiratory failure: (2) COPD exacerbation: PLAN: Plan #Acute on chronic hypoxic respiratory failure due to acute COPD exacerbation and bronchiectasis with pneumonia * was on 5L this morning but went up to 7L later today * Usually on 6 L baseline. On IV Zosyn and Zyvox. Sputum cultures ordered and pending. * On Lasix drip. Also on oral prednisone. * 2D echo showed EF of 70% with mild left atrial enlargement with mild diffuse aortic valve thickening and pulmonary artery systolic pressure of of 44mmHg. * pulmonology on board. * titrate oxygen to maintain sats >90% * breathing treatment with bronchodilators. * now on PO lasix 40mg bid * #History of VTE in the setting of history of antiphospholipid antibody syndrome * On Coumadin. INR is therapeutic. CT of the chest showed possible subsegmental PE but there was significant motion artifact. * Repeat CTA showed no evidence of PE. * on coumadin with lovenox bridging. INR is 23.9 today. * has an IVC filter in place. * #History of pulmonary hypertension likely due to chronic thromboembolic phenomenon: On Ambrisentan and sildenafil #Benign essential hypertension; on aldactone and cardizem. #Chronic atrial fibrillation: on cardizem. On coumadin. INR is supratherapeutic today at 3.9. Hold today's coumadin dose # Type 2 diabetes mellitus: Metformin on hold. Sliding scale. Accu-Cheks ACHS. #GERD: On PPI #Depression and anxiety with claustrophobia: On sertraline #History of overactive bladder: On tolterodine #DVT prophylaxis: on coumadin. INR is supratherapeutic at 3.9. Hold today's dose of coumadin. Charges/Coding Visit Charges Inpatient E&M: 88060 Subs Hosp L2
[2024-07-13] MEDS: Magnesium Hydroxide 30 ML UDC PO (15:30)
--- NOTE | 2024-07-13 16:12 | CASEMGMT ---
KAREN BUTCHER received VM from daughter Afia to discuss progress of care and discharge plan. KAREN BUTCHER in to talk with patient, patient gave permission to call daughter Afia. KAREN BUTCHER called daughter and discussed oxygen needs and progress with therapy. Plan is for patient to discharge home with resumption of [facility]. Patient required 7lpm with ambulation. DC anticipated tomorrow pending oxygen testing. Daughter voiced understanding and had no further questions.
[2024-07-13 17:20] LABS: Bedside Glucose 398 mg/dL (74-106)
[2024-07-13] MEDS: Pravastatin 40 MG Tablet PO (20:59)
[2024-07-14] VITALS (10 sets, daily range): BP systolic 118–138; BP diastolic 46–55; PULSE 63–77; RESP 16–20; TEMP 36.7–36.8; O2SAT 85–97; BMI 26.0
[2024-07-14 05:08] LABS: Absolute Lymphocyte Count 0.49 X10^3/uL (0.83-4.51); Absolute Neutrophil Count 9.6 X10^3/uL (2.0-7.7); Basophil# 0.01 X10^3/uL; Basophil% 0.1 % (0-1); Hematocrit 39.5 % (37-47); Lymphocyte # 0.49 X10^3/ul (0.83-4.51); Lymphocyte % 4.7 % (19-41); Mean Corp Hgb Conc 30.4 g/dL (32-36); Mean Corpuscular Hgb 22.5 pg (27.0-32.0); Mean Platelet Vol. 10.4 fl (6.2-12.0); Monocyte# 0.41 X10^3/uL; Monocyte% 3.9 % (0-10); NRBC Flagged by Analyzer 0 % (0-5); Neutrophil # 9.57 X10^3/uL (2.7-7.7); Neutrophil % 90.8 % (47-70); POSITIVE DIFFERENTIAL YES; Platelet Count 169 K/mm3 (150-450); RBC Distribution Width CV 16.5 % (11.6-14.6); RBC Distribution Width SD 43.6 fl (35.1-43.9); Red Blood Count 5.34 M/mm3 (4.2-5.4); White Blood Count 10.5 K/mm3 (4.4-11.0)
[2024-07-14 06:14] LABS: Anion Gap 9 (5-15); BUN 24 mg/dL (4-19); BUN/Creat Ratio 40.6 RATIO (10-20); Calcium,Total 9.6 mg/dL (7.6-11.0); Carbon Dioxide 30.9 mmol/L (21.0-32.0); Chloride 94 mmol/L (98-108); EST Glomerular Filtration Rate 97 (>60); Estimated Creatinine Clearance 57.08 ml/min (50-250); Glucose 246 mg/dL (70-99); Potassium 4.3 mmol/L (3.3-5.1); Sodium Level 134 mmol/L (133-145)
[2024-07-14] MEDS: Potassium Chloride Oral Tablet 20 MEQ PO ×3 (06:31→21:40)
[2024-07-14] MEDS: SILDENAFIL CITRATE 20 MG TABLET 60 MG PO ×3 (06:31→21:40)
[2024-07-14] MEDS: Insulin Lispro 100 UNIT/ML INSULN.PEN SC ×3 (06:33→16:34)
[2024-07-14] MEDS: Piperacil/Tazobactam 3.375 GM in 0.9% Normal Saline (50mL MB+) 50 ML IV (06:35)
[2024-07-14 07:00] LABS: Bedside Glucose 216 mg/dL (74-106)
[2024-07-14] MEDS: Ipratropium/Albuterol Sulfate 3 ML AMPUL.NEB INHALATION ×3 (07:14→19:05)
[2024-07-14 08:36] LABS: International Normalized Ratio 4.2; Prothrombin Time (Protime)PT. 41.5 SECONDS (11.7-14.9)
[2024-07-14] MEDS: Phytonadione (Vit K1) 5 MG TABLET PO (10:13)
[2024-07-14] MEDS: Lactobacillis Acidophilus 1 CAP PO ×4 (10:14→21:40)
[2024-07-14] MEDS: Spironolactone 50 MG Tablet PO (10:14)
[2024-07-14] MEDS: dexAMETHasone 4 MG Tablet PO (10:14)
[2024-07-14] MEDS: Amox/Clavulanate 875 MG Tablet PO ×2 (10:14→21:40)
[2024-07-14] MEDS: dilTIAZem CD 180 MG Capsule 360 MG PO (10:15)
[2024-07-14] MEDS: Pantoprazole Sodium 40 MG Tablet PO (10:15)
[2024-07-14] MEDS: Tolterodine Tartrate 2 MG CAP.SA PO (10:15)
[2024-07-14] MEDS: Furosemide 40 MG Tablet PO ×2 (10:15→17:57)
[2024-07-14] MEDS: Cholecalciferol (Vit D3) 125 MCG CAPSULE (5,000 UNITS) PO (10:16)
[2024-07-14] MEDS: Sertraline 100 MG Tablet PO (10:16)
--- NOTE | 2024-07-14 10:58 | PCM.PN.HOSP ---
Reason for Visit Reason for Visit: Diagnoses Lupus anticoagulant syndrome (07/05/24) Multiple subsegmental thrombotic pulmonary emboli without acute cor pulmonale (07/05/24) Primary pulmonary hypertension (07/05/24) Chronic obstructive pulmonary disease with (acute) exacerbation (07/05/24) Bronchiectasis with (acute) exacerbation (07/05/24) Acute and chronic respiratory failure with hypoxia (07/05/24) Subjective Subjective Saw patient at bedside this morning. Patient was sitting up fairly comfortably in bedside chair and in no acute distress. She did have wet sounding cough at multiple points during our encounter, states this has been fairly stable for her. Stable at 6 L nasal cannula at rest. Denies any shortness of breath at rest but does have mild shortness of breath with exertion still. No other new concerns today. Objective Data Objective Data Vital Signs: Vital Signs Temp Pulse Resp BP Pulse Ox O2 Del Method O2 Flow Rate 98.1 F 73 18 118/47 L 94 Nasal Cannula 6 07/14/24 10:11 07/14/24 10:11 07/14/24 10:11 07/14/24 10:11 07/14/24 10:16 07/14/24 10:11 07/14/24 10:16 FiO2 5 07/13/24 03:15 Oxygen Flow Rate (L/min) 6 Oxygen Delivery Method Nasal Cannula Weight: 64.6 kg Body Mass Index (BMI) 26.0 Intake & Output: Intake and Output for Last 24 Hours 07/12/24 07/13/24 07/14/24 23:59 23:59 23:59 Intake Total 1159.83 / 1159.83 150 / 270 340 / 340 Output Total 1200 / 1400 500 / 500 Balance -40.17 / -240.17 -350 / -230 340 / 340 Medical Nutrition Assessment Dietitian: Malnutrition Criteria Met Start: 07/06/24 14:47 Freq: Status: Active Protocol: Document 07/11/24 14:44 SB (Rec: 07/11/24 14:44 SB [id number]) Nutrition Malnutrition Evidence of Yes Malnutrition Exists Malnutrition (severe Chronic ): Evidenced By Suboptimal Energy Intake (Severe),Weight Loss (Severe), Physical Changes (Moderate) Clinical Problem Chronic Disease or Condition Related Malnutrition Etiology severe related to inadequate oral intake and increased energy expenditure d/t COPD Signs/Symptoms as evidenced by PO meeting <75% of estimated nutrition needs x 4 months, 25% unintentional weight loss x 4 months and moderate wasting in clavicle region. Status Active Problem Recommendation Dietitian Continue consistent carbohydrate diet and 240ml Recommendations/ glucerna shake TID with meals. Changes Will order vanilla fortified pudding with dinner. Will monitor weight trends. If PO and weight continue to declines, recommend nutrition support. Lab / Micro Data 07/14/24 04:34 07/14/24 04:34 Labs: Laboratory Results - last 24 hr 07/13/24 11:41: POC Glucose 288 H 07/13/24 16:56: POC Glucose 398 H 07/14/24 04:34: WBC 10.5, RBC 5.34, Hgb 12.0, Hct 39.5, MCV 74.0 L, MCH 22.5 L, MCHC 30.4 L, RDW Std Deviation 43.6, RDW Coeff of Brittany 16.5 H, Plt Count 169, MPV 10.4, Immature Gran % (Auto) 0.500, Neut % (Auto) 90.8 H, Lymph % (Auto) 4.7 L, [place] % (Auto) 3.9, Eos % (Auto) 0.0, Baso % (Auto) 0.1, Absolute Neuts (auto) 9.6 H, Absolute Lymphs (auto) 0.49 L, Nucleated RBC % 0, PT 41.5 H, INR 4.2 H*, Sodium 134, Potassium 4.3, Chloride 94 L, Carbon Dioxide 30.9, Anion Gap 9, BUN 24 H, Creatinine 0.60 L, Estim Creat Clear Calc 57.08, Est GFR (MDRD) Non-Af 97, BUN/Creatinine Ratio 40.6 H, Glucose 246 H, Calcium 9.6 07/14/24 06:25: POC Glucose 216 H Micro: Microbiology 07/09/24 19:20 Sputum, Expectorated/Coughed Gram Stain - Final 07/09/24 19:20 Sputum, Expectorated/Coughed Respiratory Culture - Final Staphylococcus aureus Corynebacterium striatum Presumptive C albicans 07/07/24 11:35 Urine, Clean Catch Legionella Antigen - Final 07/07/24 11:35 Urine, Clean Catch Streptococcus pneumoniae Antigen (M - Final 07/06/24 05:08 Mucosa - Nasopharyngeal Respiratory Panel (PCR) - Final 07/05/24 21:00 Mucosa - Nose SARS-CoV-2, Influenza & RSV (PCR) - Final Physical Exam Const alert, oriented x3, no apparent distress and average body habitus Constitutional Narrative: Elderly female, somewhat chronically ill-appearing, mildly fatigued appearing but otherwise sitting up comfortably in bedside chair, conversing normally, in no acute distress. General Appearance: cooperative and comfortable HEENT normocephalic, head/scalp atraumatic, hearing grossly normal bilaterally, nasal mucous membranes and turbinates normal and moist oral mucous membranes Eyes PERRL, EOMs intact bilaterally and conjunctivae normal Neck full ROM Chest inspection of chest normal Resp normal respiratory effort and no use of accessory muscles Resp Narrative: Breathing comfortably on 6 L nasal cannula at rest. Mild to moderate crackles noted in mid lung zones bilaterally but otherwise good air movement throughout with no wheezing noted. Cardio regular rate, regular rhythm, no murmurs and peripheral pulses 2+ throughout GI normal to inspection, nondistended, normoactive bowel sounds, soft to palpation, non-tender and non-distended Back/Spine normal ROM Extremity normal to inspection, full ROM and no pedal edema Skin no rashes or lesions noted Neuro moves all extremities and no focal motor deficits Speech: speech normal Motor Exam: strength 5/5 throughout Psych mental status grossly normal Assessment & Plan Assessment/Plan (1) Acute on chronic hypoxic respiratory failure: PLAN: Plan Patient is a 69-year-old female who presented to [facility] ED on 07/05/2024 with worsening shortness of breath. 1. Acute on chronic hypoxic respiratory failure secondary to acute COPD exacerbation with bronchiectasis and community-acquired pneumonia, history of pulmonary hypertension secondary to chronic thromboembolic disease ? Pulmonology followed. On home 5 to 6 L nasal cannula at rest and with exertion. Required up to 10 L high flow nasal cannula at rest. Sputum culture grew MSSA and Corynebacterium. Treated initially with IV antibiotics then switched to p.o. linezolid; will further de-escalate to p.o. Augmentin on 07/14. Transitioned to p.o. steroids on 07/14. Continue DuoNebs as needed. Was given intermittent doses of IV Lasix, continue p.o. Lasix 40 mg twice daily for now. Completed O2 testing on 07/14 and required 5 L at rest and 7 L with exertion. Continue to wean supplemental oxygen as able. Will hopefully be stable for discharge home in the next 1 to 2 days. 2. History of VTE with antiphospholipid antibody syndrome, chronic A-fib on warfarin with supratherapeutic INR ? Follows with outpatient pulmonology. Echo on 07/07 shows pulmonary hypertension. Pulmonology here had lower concern for pulmonary hypertension exacerbation so patient was okay to remain hospitalized here. Continue home inhalers, Ambrisentan and sildenafil. INR initially subtherapeutic at 1.5 on admit; was bridged with Lovenox up to therapeutic range. Unfortunately now INR is supratherapeutic at 4.2 on 07/14 despite holding 2 doses of warfarin. Will give 1 dose of p.o. vitamin K on 07/14 and follow-up a.m. INR. Chronic medical conditions: ? Hypertension: Continue home diltiazem and Aldactone. Treating with increased dose of Lasix as noted above. ? Hyperlipidemia: Continue home statin. ? Type 2 diabetes mellitus: Treating with sliding scale insulin with meals while inpatient. ? GERD: Continue home PPI. ? Depression/anxiety: Continue home sertraline and alprazolam as needed. ? Overactive bladder: Continue home tolterodine. DVT prophylaxis: On warfarin on hold for supratherapeutic INR CODE STATUS: DNR CCA, DNI Expected disposition: Home, 1 to 2 days Total clinical time spent by myself addressing the patient's medical issues, reviewing all the data, and collaborating with patient's care team: 35 minutes. Charges/Coding Visit Charges Inpatient E&M: 42654 Subs Hosp L2
[2024-07-14 11:53] LABS: Bedside Glucose 242 mg/dL (74-106)
[2024-07-14 17:04] LABS: Bedside Glucose 320 mg/dL (74-106)
[2024-07-14] MEDS: Pravastatin 40 MG Tablet PO (21:40)
[2024-07-14] MEDS: 0.9% Saline Lock 10 ML Syringe IV (21:41)
[2024-07-15] VITALS (9 sets, daily range): BP systolic 125–134; BP diastolic 49–55; PULSE 58–74; RESP 16–20; TEMP 36.7–37.1; O2SAT 89–96
[2024-07-15 05:21] LABS: Absolute Lymphocyte Count 0.68 X10^3/uL (0.83-4.51); Absolute Neutrophil Count 9.4 X10^3/uL (2.0-7.7); Basophil# 0.02 X10^3/uL; Basophil% 0.2 % (0-1); Eosinophil# 0.04 X10^3/uL; Eosinophils% 0.4 % (0-5); Hematocrit 38.8 % (37-47); Hemoglobin 11.8 g/dL (12.0-15.0); Lymphocyte # 0.68 X10^3/ul (0.83-4.51); Lymphocyte % 6.3 % (19-41); Mean Corp Hgb Conc 30.4 g/dL (32-36); Mean Corpuscular Hgb 22.5 pg (27.0-32.0); Mean Platelet Vol. 10.8 fl (6.2-12.0); Monocyte# 0.55 X10^3/uL; Monocyte% 5.1 % (0-10); NRBC Flagged by Analyzer 0 % (0-5); Platelet Count 154 K/mm3 (150-450); RBC Distribution Width CV 16.7 % (11.6-14.6); RBC Distribution Width SD 44.4 fl (35.1-43.9); Red Blood Count 5.24 M/mm3 (4.2-5.4); White Blood Count 10.8 K/mm3 (4.4-11.0)
[2024-07-15 05:45] LABS: International Normalized Ratio 1.6; Prothrombin Time (Protime)PT. 19.1 SECONDS (11.7-14.9)
[2024-07-15 05:57] LABS: Anion Gap 9 (5-15); BUN 21 mg/dL (4-19); BUN/Creat Ratio 41.5 RATIO (10-20); Calcium,Total 9.3 mg/dL (7.6-11.0); Carbon Dioxide 28.8 mmol/L (21.0-32.0); Chloride 96 mmol/L (98-108); EST Glomerular Filtration Rate 101 (>60); Estimated Creatinine Clearance 57.74 ml/min (50-250); Glucose 256 mg/dL (70-99); Potassium 4.3 mmol/L (3.3-5.1); Sodium Level 134 mmol/L (133-145)
[2024-07-15] MEDS: SILDENAFIL CITRATE 20 MG TABLET 60 MG PO ×3 (06:11→21:10)
[2024-07-15] MEDS: Insulin Lispro 100 UNIT/ML INSULN.PEN SC ×3 (06:12→16:55)
[2024-07-15] MEDS: Potassium Chloride Oral Tablet 20 MEQ PO ×3 (06:12→21:11)
[2024-07-15 06:43] LABS: Bedside Glucose 214 mg/dL (74-106)
[2024-07-15] MEDS: Ipratropium/Albuterol Sulfate 3 ML AMPUL.NEB INHALATION ×3 (07:13→20:16)
[2024-07-15] MEDS: Amox/Clavulanate 875 MG Tablet PO ×2 (09:42→21:11)
[2024-07-15] MEDS: dilTIAZem CD 180 MG Capsule 360 MG PO (09:42)
[2024-07-15] MEDS: Spironolactone 50 MG Tablet PO (09:42)
[2024-07-15] MEDS: Lactobacillis Acidophilus 1 CAP PO ×4 (09:42→21:11)
[2024-07-15] MEDS: Furosemide 40 MG Tablet PO ×2 (09:43→16:57)
[2024-07-15] MEDS: dexAMETHasone 4 MG Tablet PO (09:43)
[2024-07-15] MEDS: Sertraline 100 MG Tablet PO (09:43)
[2024-07-15] MEDS: Tolterodine Tartrate 2 MG CAP.SA PO (09:43)
[2024-07-15] MEDS: Pantoprazole Sodium 40 MG Tablet PO (09:43)
[2024-07-15] MEDS: Cholecalciferol (Vit D3) 125 MCG CAPSULE (5,000 UNITS) PO (09:44)
[2024-07-15 12:24] LABS: Bedside Glucose 198 mg/dL (74-106)
--- NOTE | 2024-07-15 16:32 | PN_ITS ---
Subjective Subjective Patient seen and examined. She felt better and had no complaints. She was on 5 L of oxygen which is her baseline. She had walking pulse ox which showed that she required 5 L of oxygen at rest and 6 L with ambulation. Plan was to discharge her today but patient's INR is subtherapeutic at 1.6. She did receive vitamin K yesterday because her INR was around 4.3. Will therefore have to get her to get her INR therapeutic prior to her discharge. She has otherwise remained hemodynamically stable. Objective Data Objective Data Vital Signs: Vital Signs Temp Pulse Resp BP Pulse Ox O2 Del Method O2 Flow Rate 98.3 F 74 16 131/49 H 94 Nasal Cannula 5 07/15/24 15:14 07/15/24 15:14 07/15/24 15:14 07/15/24 15:14 07/15/24 15:14 07/15/24 15:14 07/15/24 15:14 FiO2 5 07/13/24 03:15 Oxygen Flow Rate (L/min) 5 Oxygen Delivery Method Nasal Cannula Weight: 142 lb 6.698 oz Body Mass Index (BMI) 26.0 Intake & Output: Intake and Output for Last 24 Hours 07/13/24 07/14/24 07/15/24 23:59 23:59 23:59 Intake Total 150 / 270 340 / 700 480 / 480 Output Total 500 / 500 900 / 900 Balance -350 / -230 340 / 700 -420 / -420 Medical Nutrition Assessment Dietitian: Malnutrition Criteria Met Start: 07/06/24 14:47 Freq: Status: Active Protocol: Document 07/11/24 14:44 SB (Rec: 07/11/24 14:44 SB [id number]) Nutrition Malnutrition Evidence of Yes Malnutrition Exists Malnutrition (severe Chronic ): Evidenced By Suboptimal Energy Intake (Severe),Weight Loss (Severe), Physical Changes (Moderate) Clinical Problem Chronic Disease or Condition Related Malnutrition Etiology severe related to inadequate oral intake and increased energy expenditure d/t COPD Signs/Symptoms as evidenced by PO meeting <75% of estimated nutrition needs x 4 months, 25% unintentional weight loss x 4 months and moderate wasting in clavicle region. Status Active Problem Recommendation Dietitian Continue consistent carbohydrate diet and 240ml Recommendations/ glucerna shake TID with meals. Changes Will order vanilla fortified pudding with dinner. Will monitor weight trends. If PO and weight continue to declines, recommend nutrition support. Lab / Micro Data 07/15/24 04:31 07/15/24 04:31 Labs: Laboratory Results - last 24 hr 07/14/24 16:33: POC Glucose 320 H 07/15/24 04:31: WBC 10.8, RBC 5.24, Hgb 11.8 L, Hct 38.8, MCV 74.0 L, MCH 22.5 L , MCHC 30.4 L, RDW Std Deviation 44.4 H, RDW Coeff of Brittany 16.7 H, Plt Count 154, MPV 10.8, Immature Gran % (Auto) 1.000 H, Neut % (Auto) 87.0 H, Lymph % (Auto) 6.3 L, [place] % (Auto) 5.1, Eos % (Auto) 0.4, Baso % (Auto) 0.2, Absolute Neuts (auto) 9.4 H, Absolute Lymphs (auto) 0.68 L, Nucleated RBC % 0, PT 19.1 H, INR 1.6, Sodium 134, Potassium 4.3, Chloride 96 L, Carbon Dioxide 28.8, Anion Gap 9, BUN 21 H, Creatinine 0.50 L, Estim Creat Clear Calc 57.74, Est GFR (MDRD) Non-Af 101, BUN/Creatinine Ratio 41.5 H, Glucose 256 H, Calcium 9.3 07/15/24 06:10: POC Glucose 214 H 07/15/24 11:47: POC Glucose 198 H Micro: Microbiology 07/09/24 19:20 Sputum, Expectorated/Coughed Gram Stain - Final 07/09/24 19:20 Sputum, Expectorated/Coughed Respiratory Culture - Final Staphylococcus aureus Corynebacterium striatum Presumptive C albicans 07/07/24 11:35 Urine, Clean Catch Legionella Antigen - Final 07/07/24 11:35 Urine, Clean Catch Streptococcus pneumoniae Antigen (M - Final 07/06/24 05:08 Mucosa - Nasopharyngeal Respiratory Panel (PCR) - Final 07/05/24 21:00 Mucosa - Nose SARS-CoV-2, Influenza & RSV (PCR) - Final Physical Exam Narrative Const alert, oriented x3 and no apparent distress Constitutional Narrative: frail General Appearance: cooperative HEENT normocephalic, head/scalp atraumatic and hearing grossly normal bilaterally HEENT Narrative: dry oral mucosa Eyes PERRL, EOMs intact bilaterally and conjunctivae normal Neck no lymphadenopathy, supple and no JVD Neck Narrative: Trachea midline Lymph Lymphatic: no lymphadenopathy noted and no lymphedema noted Resp normal respiratory effort, no retractions, no use of accessory muscles and No clear to auscultation bilaterally Resp Narrative: mildly diminished breath sounds bibasally, no wheezes or crackles. On 5 L of oxygen by nasal canula Cardio regular rate, regular rhythm, S1 normal heart sound, S2 normal heart sound, no murmurs and no clicks GI normal to inspection, nondistended, normoactive bowel sounds, soft to palpation, non-tender and non-distended Extremity normal to inspection, full ROM and normal capillary refill General Extremity: no tenderness to palpation of joints or extremities Skin skin turgor normal, no jaundice, no petechiae and no mottling Skin Narrative: General Skin Exam: no breakdown Neuro oriented x3, CN's II-XII intact bilaterally, moves all extremities, no focal motor deficits and no sensory deficits noted Sensorium / Orientation: awake and alert Speech: speech normal Motor Exam: strength 5/5 throughout and general weakness Psych thought process normal, cooperative and affect normal Appearance: appropriate Assessment & Plan Assessment/Plan (1) Acute on chronic hypoxic respiratory failure: PLAN: Plan #Acute on chronic hypoxic respiratory failure due to acute COPD exacerbation and bronchiectasis with pneumonia * on 5L of oxygen * Usually on 6 L baseline. now on PO augmentin. Sputum cultures grew MSSA and corynebacterium. Antibiotics de-escalated to PO * Also on oral prednisone. * 2D echo showed EF of 70% with mild left atrial enlargement with mild diffuse aortic valve thickening and pulmonary artery systolic pressure of of 44mmHg. * pulmonology on board. * titrate oxygen to maintain sats >90% * breathing treatment with bronchodilators. * off lasix drip and on PO lasix * #History of VTE in the setting of history of antiphospholipid antibody syndrome * On Coumadin. INR is therapeutic. CT of the chest showed possible subsegmental PE but there was significant motion artifact. * Repeat CTA showed no evidence of PE. * on coumadin. INR is 1.6 toay. Received vitamin K because INR was 4.2 yesterday * will give coumadin today. * has an IVC filter in place. #History of pulmonary hypertension likely due to chronic thromboembolic phenomenon: On Ambrisentan and sildenafil #Benign essential hypertension; on aldactone and cardizem. on PO lasix #Chronic atrial fibrillation: on cardizem. On coumadin. Goal is INR 2-3 # Type 2 diabetes mellitus: Metformin on hold. Sliding scale. Accu-Cheks ACHS. #GERD: On PPI #Depression and anxiety with claustrophobia: On sertraline #History of overactive bladder: On tolterodine #DVT prophylaxis: on coumadin. Disposition: for dc home once INR is therapeutic. Charges/Coding Visit Charges Inpatient E&M: 51800 Subs Hosp L2
[2024-07-15] MEDS: Warfarin (BKC) 3 MG Tablet PO (16:56)
[2024-07-15] MEDS: ALPRAZolam 0.5 MG Tablet PO (17:02)
[2024-07-15 17:17] LABS: Bedside Glucose 325 mg/dL (74-106)
[2024-07-15] MEDS: 0.9% Saline Lock 10 ML Syringe IV (21:10)
[2024-07-15] MEDS: Pravastatin 40 MG Tablet PO (21:11)
[2024-07-16] VITALS (9 sets, daily range): BP systolic 117–131; BP diastolic 46–54; PULSE 62–71; RESP 18–20; TEMP 36.7–37.2; O2SAT 91–97; BMI 26.0
[2024-07-16] MEDS: Potassium Chloride Oral Tablet 20 MEQ PO ×3 (06:37→22:18)
[2024-07-16] MEDS: Insulin Lispro 100 UNIT/ML INSULN.PEN SC ×3 (06:37→16:50)
[2024-07-16] MEDS: SILDENAFIL CITRATE 20 MG TABLET 60 MG PO ×3 (06:38→22:19)
[2024-07-16 07:02] LABS: Bedside Glucose 188 mg/dL (74-106)
[2024-07-16] MEDS: Ipratropium/Albuterol Sulfate 3 ML AMPUL.NEB INHALATION ×3 (07:07→20:15)
[2024-07-16 07:08] LABS: Absolute Lymphocyte Count 0.74 X10^3/uL (0.83-4.51); Absolute Neutrophil Count 9.3 X10^3/uL (2.0-7.7); Basophil# 0.02 X10^3/uL; Basophil% 0.2 % (0-1); Eosinophil# 0.04 X10^3/uL; Eosinophils% 0.4 % (0-5); Hematocrit 39.8 % (37-47); Hemoglobin 12.2 g/dL (12.0-15.0); Lymphocyte # 0.74 X10^3/ul (0.83-4.51); Lymphocyte % 6.8 % (19-41); Mean Corp Hgb Conc 30.7 g/dL (32-36); Mean Corpuscular Hgb 22.6 pg (27.0-32.0); Mean Corpuscular Volume 73.8 fL (81-99); Mean Platelet Vol. 11.1 fl (6.2-12.0); Monocyte# 0.59 X10^3/uL; Monocyte% 5.4 % (0-10); NRBC Flagged by Analyzer 0 % (0-5); Neutrophil # 9.31 X10^3/uL (2.7-7.7); Neutrophil % 85.5 % (47-70); Platelet Count 168 K/mm3 (150-450); RBC Distribution Width SD 44.8 fl (35.1-43.9); Red Blood Count 5.39 M/mm3 (4.2-5.4); White Blood Count 10.9 K/mm3 (4.4-11.0)
[2024-07-16] MEDS: Amox/Clavulanate 875 MG Tablet PO ×2 (08:29→22:18)
[2024-07-16] MEDS: dilTIAZem CD 180 MG Capsule 360 MG PO (08:29)
[2024-07-16] MEDS: Tolterodine Tartrate 2 MG CAP.SA PO (08:29)
[2024-07-16] MEDS: Cholecalciferol (Vit D3) 125 MCG CAPSULE (5,000 UNITS) PO (08:29)
[2024-07-16] MEDS: 0.9% Saline Lock 10 ML Syringe IV (08:29)
[2024-07-16] MEDS: dexAMETHasone 4 MG Tablet PO (08:29)
[2024-07-16] MEDS: Pantoprazole Sodium 40 MG Tablet PO (08:29)
[2024-07-16] MEDS: Spironolactone 50 MG Tablet PO (08:29)
[2024-07-16] MEDS: Furosemide 40 MG Tablet PO ×2 (08:29→16:56)
[2024-07-16] MEDS: Sertraline 100 MG Tablet PO (08:29)
[2024-07-16] MEDS: Lactobacillis Acidophilus 1 CAP PO ×4 (08:29→22:17)
[2024-07-16 09:46] LABS: Anion Gap 10 (5-15); BUN 15 mg/dL (4-19); BUN/Creat Ratio 33.8 RATIO (10-20); Calcium,Total 9.4 mg/dL (7.6-11.0); Carbon Dioxide 25.6 mmol/L (21.0-32.0); Chloride 99 mmol/L (98-108); Creatinine, Serum 0.45 mg/dL (0.70-1.20); EST Glomerular Filtration Rate 103 (>60); Estimated Creatinine Clearance 57.74 ml/min (50-250); Glucose 216 mg/dL (70-99); Potassium 4.3 mmol/L (3.3-5.1); Sodium Level 134 mmol/L (133-145)
[2024-07-16 11:27] LABS: International Normalized Ratio 1.1; Prothrombin Time (Protime)PT. 13.9 SECONDS (11.7-14.9)
[2024-07-16 12:41] LABS: Bedside Glucose 322 mg/dL (74-106)
--- NOTE | 2024-07-16 12:54 | PN_ITS ---
Subjective Subjective Patient seen and examined. She had no complaints. She remains on 5 L of oxygen. She was not discharged yesterday because of subtherapeutic INR. INR today is 1.1. She has otherwise remained hemodynamically stable. Objective Data Objective Data Vital Signs: Vital Signs Temp Pulse Resp BP Pulse Ox O2 Del Method O2 Flow Rate 98.0 F 65 18 117/47 L 96 Nasal Cannula 5.5 07/16/24 08:22 07/16/24 08:22 07/16/24 08:22 07/16/24 08:22 07/16/24 08:22 07/16/24 09:39 07/16/24 08:22 FiO2 5 07/13/24 03:15 Oxygen Flow Rate (L/min) 5.5 Oxygen Delivery Method Nasal Cannula Weight: 142 lb 6.698 oz Body Mass Index (BMI) 26.0 Intake & Output: Intake and Output for Last 24 Hours 07/14/24 07/15/24 07/16/24 23:59 23:59 23:59 Intake Total 340 / 700 480 / 480 Output Total 1000 / 1000 Balance 340 / 700 -520 / -520 Medical Nutrition Assessment Dietitian: Malnutrition Criteria Met Start: 07/06/24 14:47 Freq: Status: Active Protocol: Document 07/11/24 14:44 SB (Rec: 07/11/24 14:44 SB [id number]) Nutrition Malnutrition Evidence of Yes Malnutrition Exists Malnutrition (severe Chronic ): Evidenced By Suboptimal Energy Intake (Severe),Weight Loss (Severe), Physical Changes (Moderate) Clinical Problem Chronic Disease or Condition Related Malnutrition Etiology severe related to inadequate oral intake and increased energy expenditure d/t COPD Signs/Symptoms as evidenced by PO meeting <75% of estimated nutrition needs x 4 months, 25% unintentional weight loss x 4 months and moderate wasting in clavicle region. Status Active Problem Recommendation Dietitian Continue consistent carbohydrate diet and 240ml Recommendations/ glucerna shake TID with meals. Changes Will order vanilla fortified pudding with dinner. Will monitor weight trends. If PO and weight continue to declines, recommend nutrition support. Lab / Micro Data 07/16/24 05:33 07/16/24 05:33 Labs: Laboratory Results - last 24 hr 07/15/24 16:54: POC Glucose 325 H 07/16/24 05:33: WBC 10.9, RBC 5.39, Hgb 12.2, Hct 39.8, MCV 73.8 L, MCH 22.6 L, MCHC 30.7 L, RDW Std Deviation 44.8 H, RDW Coeff of Brittany 17.0 H, Plt Count 168, MPV 11.1, Immature Gran % (Auto) 1.700 H, Neut % (Auto) 85.5 H, Lymph % (Auto) 6.8 L, [place] % (Auto) 5.4, Eos % (Auto) 0.4, Baso % (Auto) 0.2, Absolute Neuts (auto) 9.3 H, Absolute Lymphs (auto) 0.74 L, Nucleated RBC % 0, Sodium 134, Potassium 4.3, Chloride 99, Carbon Dioxide 25.6, Anion Gap 10, BUN 15, C reatinine 0.45 L, Estim Creat Clear Calc 57.74, Est GFR (MDRD) Non-Af 103, B UN/Creatinine Ratio 33.8 H, Glucose 216 H, Calcium 9.4 07/16/24 06:34: POC Glucose 188 H 07/16/24 09:53: PT 13.9, INR 1.1 07/16/24 12:21: POC Glucose 322 H Micro: Microbiology 07/09/24 19:20 Sputum, Expectorated/Coughed Gram Stain - Final 07/09/24 19:20 Sputum, Expectorated/Coughed Respiratory Culture - Final Staphylococcus aureus Corynebacterium striatum Presumptive C albicans 07/07/24 11:35 Urine, Clean Catch Legionella Antigen - Final 07/07/24 11:35 Urine, Clean Catch Streptococcus pneumoniae Antigen (M - Final 07/06/24 05:08 Mucosa - Nasopharyngeal Respiratory Panel (PCR) - Final 07/05/24 21:00 Mucosa - Nose SARS-CoV-2, Influenza & RSV (PCR) - Final Physical Exam Const alert, oriented x3, no apparent distress and average body habitus Constitutional Narrative: frail, looks chronically ill. General Appearance: cooperative and comfortable HEENT normocephalic, head/scalp atraumatic, hearing grossly normal bilaterally, nasal mucous membranes and turbinates normal and moist oral mucous membranes Eyes PERRL, EOMs intact bilaterally and conjunctivae normal Eyes Narrative: No scleral icterus Neck full ROM, no lymphadenopathy, supple and no JVD Neck Narrative: Trachea midline Lymph Lymphatic: no lymphadenopathy noted and no lymphedema noted Chest inspection of chest normal Resp clear to auscultation bilaterally Resp Narrative: mildly diminished breath sounds bibasally, no wheezes or crackles. On 5L of oxygen by nasal canula Cardio regular rate, regular rhythm, S1 normal heart sound, S2 normal heart sound, no murmurs, no rub, no gallops, no clicks and peripheral pulses 2+ throughout GI normal to inspection, nondistended, normoactive bowel sounds and soft to palpation Back/Spine normal ROM Extremity normal to inspection, full ROM, normal capillary refill, no clubbing, cyanosis or edema, no calf tenderness and no pedal edema General Extremity: no tenderness to palpation of joints or extremities Skin no rashes or lesions noted, skin turgor normal, no jaundice, no petechiae and no mottling Skin Narrative: General Skin Exam: no breakdown Neuro oriented x3, CN's II-XII intact bilaterally, moves all extremities, no focal motor deficits and no sensory deficits noted Sensorium / Orientation: awake and alert Speech: speech normal Motor Exam: strength 5/5 throughout and general weakness Psych mental status grossly normal, thought process normal, cooperative and affect normal Appearance: appropriate Assessment & Plan Assessment/Plan (1) Acute on chronic hypoxic respiratory failure: PLAN: Plan #Acute on chronic hypoxic respiratory failure due to acute COPD exacerbation and bronchiectasis with pneumonia * on 5L of oxygen * Usually on 6 L baseline. now on PO augmentin. Sputum cultures grew MSSA and corynebacterium. Antibiotics de-escalated to PO * Also on oral prednisone. * 2D echo showed EF of 70% with mild left atrial enlargement with mild diffuse aortic valve thickening and pulmonary artery systolic pressure of of 44mmHg. * pulmonology on board. * titrate oxygen to maintain sats >90% * breathing treatment with bronchodilators. * off lasix drip and on PO lasix * #History of VTE in the setting of history of antiphospholipid antibody syndrome * On Coumadin. CT of the chest showed possible subsegmental PE but there was significant motion artifact. * Repeat CTA showed no evidence of PE. * on coumadin. INR is down to 1.1 today. * will give 6mg of coumadin today. * has an IVC filter in place. #History of pulmonary hypertension likely due to chronic thromboembolic phenomenon: On Ambrisentan and sildenafil #Benign essential hypertension; on aldactone and cardizem. on PO lasix #Chronic atrial fibrillation: on cardizem. On coumadin. Goal is INR 2-3 # Type 2 diabetes mellitus: Metformin on hold. Sliding scale. Accu-Cheks ACHS. #GERD: On PPI #Depression and anxiety with claustrophobia: On sertraline #History of overactive bladder: On tolterodine #DVT prophylaxis: on coumadin. Disposition: for dc home once INR is therapeutic. Charges/Coding Visit Charges Inpatient E&M: 73429 Subs Hosp L2
[2024-07-16] MEDS: Warfarin (BKC) 3 MG Tablet PO (16:56)
[2024-07-16 17:09] LABS: Bedside Glucose 368 mg/dL (74-106)
[2024-07-16] MEDS: Pravastatin 40 MG Tablet PO (22:18)
[2024-07-16 22:39] LABS: Bedside Glucose 375 mg/dL (74-106)
[2024-07-17] VITALS (7 sets, daily range): BP systolic 120–134; BP diastolic 52–62; PULSE 57–71; RESP 14–20; TEMP 36.4–36.7; O2SAT 93–98; BMI 26.4
[2024-07-17] MEDS: Insulin Lispro 100 UNIT/ML INSULN.PEN SC ×5 (00:01→22:44)
[2024-07-17] MEDS: Potassium Chloride Oral Tablet 20 MEQ PO ×3 (05:53→22:26)
[2024-07-17] MEDS: SILDENAFIL CITRATE 20 MG TABLET 60 MG PO ×3 (05:54→22:29)
[2024-07-17 07:03] LABS: Bedside Glucose 196 mg/dL (74-106)
[2024-07-17] MEDS: Ipratropium/Albuterol Sulfate 3 ML AMPUL.NEB INHALATION ×3 (07:08→20:31)
[2024-07-17 07:10] LABS: Absolute Lymphocyte Count 0.72 X10^3/uL (0.83-4.51); Basophil# 0.04 X10^3/uL; Basophil% 0.3 % (0-1); Eosinophil# 0.08 X10^3/uL; Eosinophils% 0.7 % (0-5); Hematocrit 37.8 % (37-47); Hemoglobin 11.9 g/dL (12.0-15.0); Lymphocyte # 0.72 X10^3/ul (0.83-4.51); Lymphocyte % 6.2 % (19-41); Mean Corp Hgb Conc 31.5 g/dL (32-36); Mean Corpuscular Hgb 22.8 pg (27.0-32.0); Mean Corpuscular Volume 72.3 fL (81-99); Mean Platelet Vol. 10.7 fl (6.2-12.0); Monocyte% 5.1 % (0-10); NRBC Flagged by Analyzer 0 % (0-5); Neutrophil # 10.04 X10^3/uL (2.7-7.7); Platelet Count 149 K/mm3 (150-450); RBC Distribution Width CV 16.9 % (11.6-14.6); RBC Distribution Width SD 43.6 fl (35.1-43.9); Red Blood Count 5.23 M/mm3 (4.2-5.4); White Blood Count 11.7 K/mm3 (4.4-11.0)
[2024-07-17 07:24] LABS: International Normalized Ratio 1.3; Prothrombin Time (Protime)PT. 16.5 SECONDS (11.7-14.9)
[2024-07-17] MEDS: Lactobacillis Acidophilus 1 CAP PO ×4 (08:06→22:24)
[2024-07-17] MEDS: Amox/Clavulanate 875 MG Tablet PO ×2 (08:07→22:26)
[2024-07-17] MEDS: dilTIAZem CD 180 MG Capsule 360 MG PO (08:07)
[2024-07-17] MEDS: Furosemide 40 MG Tablet PO ×2 (08:08→17:58)
[2024-07-17] MEDS: dexAMETHasone 4 MG Tablet PO (08:08)
[2024-07-17] MEDS: Tolterodine Tartrate 2 MG CAP.SA PO (08:08)
[2024-07-17] MEDS: Pantoprazole Sodium 40 MG Tablet PO (08:09)
[2024-07-17] MEDS: Cholecalciferol (Vit D3) 125 MCG CAPSULE (5,000 UNITS) PO (08:09)
[2024-07-17] MEDS: Sertraline 100 MG Tablet PO (08:10)
[2024-07-17] MEDS: Spironolactone 50 MG Tablet PO (08:13)
[2024-07-17 08:24] LABS: Anion Gap 9 (5-15); BUN 15 mg/dL (4-19); BUN/Creat Ratio 34.9 RATIO (10-20); Calcium,Total 9.4 mg/dL (7.6-11.0); Carbon Dioxide 25.9 mmol/L (21.0-32.0); Chloride 96 mmol/L (98-108); Creatinine, Serum 0.43 mg/dL (0.70-1.20); EST Glomerular Filtration Rate 105 (>60); Estimated Creatinine Clearance 58.12 ml/min (50-250); Glucose 209 mg/dL (70-99); Potassium 4.1 mmol/L (3.3-5.1); Sodium Level 131 mmol/L (133-145)
--- NOTE | 2024-07-17 10:12 | PN_ITS ---
Subjective Subjective Patient seen and examined. She still remains on 5 L of oxygen. She had no active complaints. INR is still low and is going up to 1.3 today. I did discuss with patient possibility of discharge with her getting subcu Lovenox shots to bridge to Coumadin. However she says she does not know how quickly she can get an appointment with her PCP for INR check. I will therefore keep patient to continue dosing the Coumadin until INR is therapeutic. Objective Data Objective Data Vital Signs: Vital Signs Temp Pulse Resp BP Pulse Ox O2 Del Method O2 Flow Rate 97.8 F 65 16 125/54 H 98 Nasal Cannula 5 07/17/24 08:03 07/17/24 08:03 07/17/24 08:03 07/17/24 08:03 07/17/24 08:03 07/17/24 08:03 07/17/24 08:03 FiO2 5 07/13/24 03:15 Oxygen Flow Rate (L/min) 5 Oxygen Delivery Method Nasal Cannula Weight: 144 lb 6.444 oz Body Mass Index (BMI) 26.4 Intake & Output: Intake and Output for Last 24 Hours 07/15/24 07/16/24 07/18/24 23:59 23:59 00:59 Intake Total 480 / 480 100 / 100 Output Total 1000 / 1000 Balance -520 / -520 100 / 100 Medical Nutrition Assessment Dietitian: Malnutrition Criteria Met Start: 07/06/24 14:47 Freq: Status: Active Protocol: Document 07/11/24 14:44 SB (Rec: 07/11/24 14:44 SB [id number]) Nutrition Malnutrition Evidence of Yes Malnutrition Exists Malnutrition (severe Chronic ): Evidenced By Suboptimal Energy Intake (Severe),Weight Loss (Severe), Physical Changes (Moderate) Clinical Problem Chronic Disease or Condition Related Malnutrition Etiology severe related to inadequate oral intake and increased energy expenditure d/t COPD Signs/Symptoms as evidenced by PO meeting <75% of estimated nutrition needs x 4 months, 25% unintentional weight loss x 4 months and moderate wasting in clavicle region. Status Active Problem Recommendation Dietitian Continue consistent carbohydrate diet and 240ml Recommendations/ glucerna shake TID with meals. Changes Will order vanilla fortified pudding with dinner. Will monitor weight trends. If PO and weight continue to declines, recommend nutrition support. Lab / Micro Data 07/17/24 06:00 07/17/24 06:00 Labs: Laboratory Results - last 24 hr 07/16/24 05:33: Sodium 134, Potassium 4.3, Chloride 99, Carbon Dioxide 25.6, Anion Gap 10, BUN 15, Creatinine 0.45 L, Estim Creat Clear Calc 57.74, Est GFR (MDRD) Non-Af 103, BUN/Creatinine Ratio 33.8 H, Glucose 216 H, Calcium 9.4 07/16/24 09:53: PT 13.9, INR 1.1 07/16/24 12:21: POC Glucose 322 H 07/16/24 16:48: POC Glucose 368 H 07/16/24 22:14: POC Glucose 375 H 07/17/24 06:00: WBC 11.7 H, RBC 5.23, Hgb 11.9 L, Hct 37.8, MCV 72.3 L, MCH 22.8 L, MCHC 31.5 L, RDW Std Deviation 43.6, RDW Coeff of Brittany 16.9 H, Plt Count 149 L , MPV 10.7, Immature Gran % (Auto) 1.700 H, Neut % (Auto) 86.0 H, Lymph % (Auto) 6.2 L, [place] % (Auto) 5.1, Eos % (Auto) 0.7, Baso % (Auto) 0.3, Absolute Neuts (auto) 10.0 H, Absolute Lymphs (auto) 0.72 L, Nucleated RBC % 0, PT 16.5 H, INR 1.3, Sodium 131 L, Potassium 4.1, Chloride 96 L, Carbon Dioxide 25.9, Anion Gap 9, BUN 15, Creatinine 0.43 L, Estim Creat Clear Calc 58.12, Est GFR (MDRD) Non- Af 105, BUN/Creatinine Ratio 34.9 H, Glucose 209 H, Calcium 9.4 07/17/24 06:38: POC Glucose 196 H Micro: Microbiology 07/09/24 19:20 Sputum, Expectorated/Coughed Gram Stain - Final 07/09/24 19:20 Sputum, Expectorated/Coughed Respiratory Culture - Final Staphylococcus aureus Corynebacterium striatum Presumptive C albicans 07/07/24 11:35 Urine, Clean Catch Legionella Antigen - Final 07/07/24 11:35 Urine, Clean Catch Streptococcus pneumoniae Antigen (M - Final 07/06/24 05:08 Mucosa - Nasopharyngeal Respiratory Panel (PCR) - Final 07/05/24 21:00 Mucosa - Nose SARS-CoV-2, Influenza & RSV (PCR) - Final Physical Exam Const alert, oriented x3, no apparent distress and average body habitus Constitutional Narrative: frail, looks chronically ill. General Appearance: cooperative and comfortable HEENT normocephalic, head/scalp atraumatic, hearing grossly normal bilaterally, nasal mucous membranes and turbinates normal and moist oral mucous membranes Eyes PERRL, EOMs intact bilaterally and conjunctivae normal Eyes Narrative: No scleral icterus Neck full ROM, no lymphadenopathy, supple and no JVD Neck Narrative: Trachea midline Lymph Lymphatic: no lymphadenopathy noted and no lymphedema noted Chest inspection of chest normal Resp Resp Narrative: mildly diminished breath sounds bibasally, no wheezes or crackles. Remains on 5L of oxygen by nasal canula Auscultation: wheezes; Negative for crackles or rhonchi Cardio regular rate, regular rhythm, S1 normal heart sound, S2 normal heart sound and no murmurs GI normal to inspection, nondistended, normoactive bowel sounds, soft to palpation, non-tender and non-distended Back/Spine normal ROM Extremity normal to inspection, full ROM, normal capillary refill, no clubbing, cyanosis or edema, no calf tenderness and no pedal edema General Extremity: no tenderness to palpation of joints or extremities Skin no rashes or lesions noted, skin turgor normal, no jaundice, no petechiae and no mottling Skin Narrative: General Skin Exam: no breakdown Neuro oriented x3, CN's II-XII intact bilaterally, moves all extremities, no focal motor deficits and no sensory deficits noted Sensorium / Orientation: awake, alert, oriented to person, oriented to place and oriented to time Speech: speech normal Motor Exam: strength 5/5 throughout and general weakness Psych mental status grossly normal, thought process normal, cooperative and affect normal Appearance: appropriate Assessment & Plan Assessment/Plan (1) Acute on chronic hypoxic respiratory failure: PLAN: Plan #Acute on chronic hypoxic respiratory failure due to acute COPD exacerbation and bronchiectasis with pneumonia * remains 5L of oxygen * Usually on 6 L baseline. now on PO augmentin. Sputum cultures grew MSSA and corynebacterium. Antibiotics de-escalated to PO * Also on oral prednisone. * 2D echo showed EF of 70% with mild left atrial enlargement with mild diffuse aortic valve thickening and pulmonary artery systolic pressure of of 44mmHg. * pulmonology on board. * titrate oxygen to maintain sats >90% * breathing treatment with bronchodilators. 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 CT of the chest showed possible subsegmental PE but there was significant motion artifact. * Repeat CTA showed no evidence of PE. * on coumadin. INR is 1.3 today. * will give 10mg of coumadin x 1 today. * bridge with lovenox shots * has IVC filter in place also * #History of pulmonary hypertension likely due to chronic thromboembolic phenomenon: On Ambrisentan and sildenafil #Benign essential hypertension; on aldactone and cardizem. on PO lasix #Chronic atrial fibrillation: on cardizem. On coumadin. Goal is INR 2-3 # Type 2 diabetes mellitus: Metformin on hold. Sliding scale. Accu-Cheks ACHS. #GERD: On PPI #Depression and anxiety with claustrophobia: On sertraline #History of overactive bladder: On tolterodine #DVT prophylaxis: on coumadin. Disposition: for dc home once INR is therapeutic. Charges/Coding Visit Charges Inpatient E&M: 32177 Subs Hosp L2
[2024-07-17] MEDS: Ondansetron ODT 4 MG Tablet PO (11:25)
[2024-07-17 12:18] LABS: Bedside Glucose 233 mg/dL (74-106)
[2024-07-17] MEDS: proMETHazine 25 MG/ML Syringe IM (17:52)
[2024-07-17] MEDS: Warfarin (BKC) 3 MG Tablet PO (17:59)
[2024-07-17 18:18] LABS: Bedside Glucose 236 mg/dL (74-106)
[2024-07-17] MEDS: Enoxaparin 80 MG/0.8 ML Syringe 70 MG SC (19:23)
[2024-07-17] MEDS: 0.9% Saline Lock 10 ML Syringe IV (22:23)
[2024-07-17] MEDS: Pravastatin 40 MG Tablet PO (22:29)
[2024-07-17 23:09] LABS: Bedside Glucose 223 mg/dL (74-106)
[2024-07-18] VITALS (18 sets, daily range): BP systolic 114–148; BP diastolic 49–66; PULSE 55–84; RESP 16–20; TEMP 36.2–37; O2SAT 89–98; BMI 25.8
[2024-07-18 05:37] LABS: Absolute Lymphocyte Count 1.01 X10^3/uL (0.83-4.51); Absolute Neutrophil Count 14.9 X10^3/uL (2.0-7.7); Basophil# 0.03 X10^3/uL; Basophil% 0.2 % (0-1); Eosinophil# 0.08 X10^3/uL; Eosinophils% 0.5 % (0-5); Hematocrit 40.6 % (37-47); Hemoglobin 12.9 g/dL (12.0-15.0); Lymphocyte # 1.01 X10^3/ul (0.83-4.51); Mean Corp Hgb Conc 31.8 g/dL (32-36); Mean Corpuscular Hgb 23.2 pg (27.0-32.0); Mean Corpuscular Volume 72.9 fL (81-99); Mean Platelet Vol. 10.2 fl (6.2-12.0); Monocyte# 0.75 X10^3/uL; Monocyte% 4.4 % (0-10); NRBC Flagged by Analyzer 0 % (0-5); Neutrophil # 14.87 X10^3/uL (2.7-7.7); Neutrophil % 87.5 % (47-70); Platelet Count 186 K/mm3 (150-450); RBC Distribution Width CV 17.4 % (11.6-14.6); RBC Distribution Width SD 43.7 fl (35.1-43.9); Red Blood Count 5.57 M/mm3 (4.2-5.4)
[2024-07-18] MEDS: Enoxaparin 80 MG/0.8 ML Syringe 70 MG SC ×2 (06:24→19:51)
[2024-07-18] MEDS: SILDENAFIL CITRATE 20 MG TABLET 60 MG PO ×3 (06:25→21:06)
[2024-07-18] MEDS: Potassium Chloride Oral Tablet 20 MEQ PO ×2 (06:26→21:06)
[2024-07-18 06:48] LABS: Bedside Glucose 138 mg/dL (74-106)
[2024-07-18] MEDS: Ipratropium/Albuterol Sulfate 3 ML AMPUL.NEB INHALATION ×3 (07:17→20:52)
[2024-07-18 07:49] LABS: Anion Gap 12 (5-15); BUN 19 mg/dL (4-19); BUN/Creat Ratio 55.6 RATIO (10-20); Calcium,Total 9.7 mg/dL (7.6-11.0); Carbon Dioxide 22.3 mmol/L (21.0-32.0); Chloride 100 mmol/L (98-108); Creatinine, Serum 0.33 mg/dL (0.70-1.20); EST Glomerular Filtration Rate 111 (>60); Estimated Creatinine Clearance 57.54 ml/min (50-250); Glucose 163 mg/dL (70-99); Potassium 4.7 mmol/L (3.3-5.1); Sodium Level 134 mmol/L (133-145)
[2024-07-18] MEDS: dexAMETHasone 4 MG Tablet PO (10:21)
[2024-07-18] MEDS: Spironolactone 50 MG Tablet PO (10:21)
[2024-07-18] MEDS: Tolterodine Tartrate 2 MG CAP.SA PO (10:21)
[2024-07-18] MEDS: Amox/Clavulanate 875 MG Tablet PO ×2 (10:21→21:06)
[2024-07-18] MEDS: dilTIAZem CD 180 MG Capsule 360 MG PO (10:21)
[2024-07-18] MEDS: Lactobacillis Acidophilus 1 CAP PO ×3 (10:21→21:13)
[2024-07-18] MEDS: Cholecalciferol (Vit D3) 125 MCG CAPSULE (5,000 UNITS) PO (10:22)
[2024-07-18] MEDS: Sertraline 100 MG Tablet PO (10:22)
[2024-07-18] MEDS: Furosemide 40 MG Tablet PO ×2 (10:22→19:52)
[2024-07-18] MEDS: Pantoprazole Sodium 40 MG Tablet PO (10:22)
[2024-07-18 11:29] LABS: Bedside Glucose 203 mg/dL (74-106)
[2024-07-18] MEDS: Insulin Lispro 100 UNIT/ML INSULN.PEN SC ×3 (12:49→21:13)
--- NOTE | 2024-07-18 14:28 | CASEMGMT ---
Addendum entered by Delmy Christianson 07/18/24 15:37: KAREN BUTCHER and MIRANDA reviewed notes, pt not appropriate for SNF. KAREN BUTCHER called family back and informed them pt has been doing well with therapy. Pt will go home with [facility], likely DC tomorrow. Denies other questions or concerns at this time. Original Note: KAREN BUTCHER received phone call from family member Afia Colon, she states I'm concerned about her returning home after being in the hospital for so long, I think she needs to go somewhere for a couple weeks for rehab before she is safe to return home. KAREN BUTCHER informed her [facility] computers are down, will review pt notes and discuss with SW and will call family member back. KAREN BUTCHER notified SW of family request.
[2024-07-18 16:42] LABS: Bedside Glucose 329 mg/dL (74-106)
[2024-07-18] MEDS: Ondansetron ODT 4 MG Tablet PO (17:30)
[2024-07-18] MEDS: proMETHazine 25 MG/ML Syringe IM (18:06)
--- NOTE | 2024-07-18 19:43 | PN.HOSP_ITS ---
Reason for Visit Reason for Visit: Diagnoses Lupus anticoagulant syndrome (07/05/24) Multiple subsegmental thrombotic pulmonary emboli without acute cor pulmonale (07/05/24) Primary pulmonary hypertension (07/05/24) Chronic obstructive pulmonary disease with (acute) exacerbation (07/05/24) Bronchiectasis with (acute) exacerbation (07/05/24) Acute and chronic respiratory failure with hypoxia (07/05/24) Subjective Subjective Patient was seen and examined today, patient's INR was 1.3 today, I have given her an additional dose of Coumadin over her usual dose of 3 mg. Patient's INR will be rechecked tomorrow, patient does not want to give herself injections at home, I reached out to the patient's physician who treats her pulmonary hypertension, I was curious to know whether the patient could be placed on Eliquis but I got no answer back from the patient's pulmonary physician. Patient states she would prefer to remain on Coumadin regardless. Objective Data Objective Data Vital Signs: Vital Signs Temp Pulse Resp BP Pulse Ox O2 Del Method O2 Flow Rate 98.3 F 73 19 H 148/55 H 95 Nasal Cannula 7 07/18/24 18:04 07/18/24 18:04 07/18/24 18:04 07/18/24 18:04 07/18/24 18:04 07/18/24 18:04 07/18/24 18:04 FiO2 5 07/13/24 03:15 Oxygen Flow Rate (L/min) 7 Oxygen Delivery Method Nasal Cannula Weight: 64.1 kg Body Mass Index (BMI) 25.8 Intake & Output: Intake and Output for Last 24 Hours 07/16/24 07/18/24 07/18/24 23:59 00:59 23:59 Intake Total 100 / 220 460 / 460 Output Total 1825 / 1825 Balance 100 / -780 -1365 / -1365 Medical Nutrition Assessment Dietitian: Malnutrition Criteria Met Start: 07/06/24 14:47 Freq: Status: Active Protocol: Document 07/11/24 14:44 SB (Rec: 07/11/24 14:44 SB [id number]) Nutrition Malnutrition Evidence of Yes Malnutrition Exists Malnutrition (severe Chronic ): Evidenced By Suboptimal Energy Intake (Severe),Weight Loss (Severe), Physical Changes (Moderate) Clinical Problem Chronic Disease or Condition Related Malnutrition Etiology severe related to inadequate oral intake and increased energy expenditure d/t COPD Signs/Symptoms as evidenced by PO meeting <75% of estimated nutrition needs x 4 months, 25% unintentional weight loss x 4 months and moderate wasting in clavicle region. Status Active Problem Recommendation Dietitian Continue consistent carbohydrate diet and 240ml Recommendations/ glucerna shake TID with meals. Changes Will order vanilla fortified pudding with dinner. Will monitor weight trends. If PO and weight continue to declines, recommend nutrition support. Lab / Micro Data 07/19/24 05:29 07/19/24 05:29 Labs: Laboratory Results - last 24 hr 07/17/24 22:43: POC Glucose 223 H 07/18/24 05:16: WBC 17.0 H, RBC 5.57 H, Hgb 12.9, Hct 40.6, MCV 72.9 L, MCH 23.2 L, MCHC 31.8 L, RDW Std Deviation 43.7, RDW Coeff of Brittany 17.4 H, Plt Count 186, MPV 10.2, Immature Gran % (Auto) 1.400 H, Neut % (Auto) 87.5 H, Lymph % (Auto) 6.0 L, [place] % (Auto) 4.4, Eos % (Auto) 0.5, Baso % (Auto) 0.2, Absolute Neuts (auto) 14.9 H, Absolute Lymphs (auto) 1.01, Nucleated RBC % 0, Sodium 134, Potassium 4.7, Chloride 100, Carbon Dioxide 22.3, Anion Gap 12, BUN 19, C reatinine 0.33 L, Estim Creat Clear Calc 57.54, Est GFR (MDRD) Non-Af 111, B UN/Creatinine Ratio 55.6 H, Glucose 163 H, Calcium 9.7 07/18/24 06:29: POC Glucose 138 H 07/18/24 11:11: POC Glucose 203 H 07/18/24 16:22: POC Glucose 329 H Micro: Microbiology 07/09/24 19:20 Sputum, Expectorated/Coughed Gram Stain - Final 07/09/24 19:20 Sputum, Expectorated/Coughed Respiratory Culture - Final Staphylococcus aureus Corynebacterium striatum Presumptive C albicans 07/07/24 11:35 Urine, Clean Catch Legionella Antigen - Final 07/07/24 11:35 Urine, Clean Catch Streptococcus pneumoniae Antigen (M - Final 07/06/24 05:08 Mucosa - Nasopharyngeal Respiratory Panel (PCR) - Final 07/05/24 21:00 Mucosa - Nose SARS-CoV-2, Influenza & RSV (PCR) - Final Physical Exam Const alert, oriented x3 and no apparent distress Constitutional Narrative: Patient appears older than her stated age General Appearance: cooperative, well kempt and well developed Orientation / Consciousness: awake, oriented to person, oriented to place and oriented to time HEENT normocephalic, head/scalp atraumatic and moist oral mucous membranes Eyes PERRL, EOMs intact bilaterally and conjunctivae normal Neck supple, no JVD, thyroid normal and no carotid bruits General: trachea midline Resp normal respiratory effort, no retractions and no use of accessory muscles Resp Narrative: Scattered expiratory rhonchi are noted bilaterally Auscultation: rhonchi; Negative for rales or wheezes Cardio regular rate, regular rhythm, S1 normal heart sound, S2 normal heart sound, no murmurs, no rub and no gallops GI normal to inspection, nondistended, normoactive bowel sounds, soft to palpation, non-tender and non-distended Extremity no clubbing, cyanosis or edema Skin no rashes or lesions noted General Skin Exam: no breakdown Neuro oriented x3, CN's II-XII intact bilaterally, no focal motor deficits and no sensory deficits noted Sensorium / Orientation: awake and alert Speech: speech normal Psych affect normal Assessment & Plan Assessment/Plan (1) Acute on chronic hypoxic respiratory failure: PLAN: Plan 1. Acute on chronic hypoxic respiratory failure-patient's pulse ox will be monitored, patient will need a walking pulse ox before she is discharged home #2 exacerbation of COPD with flareup of bronchiectasis-patient was treated with antibiotics, IV corticosteroids, and Lasix. #3 severe pulmonary hypertension-patient will remain on her present medications, she should follow-up with her outpatient pulmonary hypertension Dr. #4 chronic use of 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 due to history of VTE with history of antiphospholipid antibody syndrome-patient was given extra Coumadin today, she had been given vitamin K this admission #5 severe chronic protein and caloric malnutrition-as evidenced by p.o. meeting less than 75% of estimated nutritional needs x 4 months, 23% unintentional weight loss x 4 months, and moderate wasting in the clavicular region-patient is receiving 240 cc of Glucerna shake 3 times daily with meals, patient is being followed by nutritional services Acute pneumonia was ruled out Total clinical time spent by myself addressing the patient's medical issues, reviewing all of her data, and collaborating with patient's care team: 35 minutes Charges/Coding Visit Charges Inpatient E&M: 46821 Subs Hosp L2
[2024-07-18] MEDS: Warfarin (BKC) 3 MG Tablet PO (19:52)
[2024-07-18] MEDS: Pravastatin 40 MG Tablet PO (21:06)
[2024-07-18 21:43] LABS: Bedside Glucose 261 mg/dL (74-106)
[2024-07-19] VITALS (9 sets, daily range): BP systolic 122–137; BP diastolic 41–64; PULSE 59–78; RESP 16–18; TEMP 36.3–37.1; O2SAT 86–98; BMI 25.4
[2024-07-19 05:48] LABS: Absolute Lymphocyte Count 0.83 X10^3/uL (0.83-4.51); Absolute Neutrophil Count 13.1 X10^3/uL (2.0-7.7); Basophil# 0.05 X10^3/uL; Basophil% 0.3 % (0-1); Eosinophil# 0.02 X10^3/uL; Eosinophils% 0.1 % (0-5); Hematocrit 39.2 % (37-47); Hemoglobin 12.2 g/dL (12.0-15.0); Lymphocyte # 0.83 X10^3/ul (0.83-4.51); Lymphocyte % 5.6 % (19-41); Mean Corp Hgb Conc 31.1 g/dL (32-36); Mean Corpuscular Hgb 22.8 pg (27.0-32.0); Mean Corpuscular Volume 73.3 fL (81-99); Mean Platelet Vol. 9.7 fl (6.2-12.0); Monocyte# 0.56 X10^3/uL; Monocyte% 3.8 % (0-10); NRBC Flagged by Analyzer 0 % (0-5); Neutrophil # 13.14 X10^3/uL (2.7-7.7); Neutrophil % 88.3 % (47-70); Platelet Count 164 K/mm3 (150-450); RBC Distribution Width CV 17.9 % (11.6-14.6); RBC Distribution Width SD 44.4 fl (35.1-43.9); Red Blood Count 5.35 M/mm3 (4.2-5.4); White Blood Count 14.9 K/mm3 (4.4-11.0)
[2024-07-19] MEDS: Potassium Chloride Oral Tablet 20 MEQ PO ×2 (06:08→14:34)
[2024-07-19] MEDS: Enoxaparin 60 MG/0.6 ML Syringe SC (06:08)
[2024-07-19] MEDS: SILDENAFIL CITRATE 20 MG TABLET 60 MG PO ×2 (06:09→14:34)
[2024-07-19] MEDS: Insulin Lispro 100 UNIT/ML INSULN.PEN SC ×2 (06:11→11:28)
[2024-07-19 06:31] LABS: Bedside Glucose 180 mg/dL (74-106)
[2024-07-19 06:34] LABS: Anion Gap 9 (5-15); BUN 17 mg/dL (4-19); BUN/Creat Ratio 32.5 RATIO (10-20); Calcium,Total 9.3 mg/dL (7.6-11.0); Carbon Dioxide 25.2 mmol/L (21.0-32.0); Chloride 99 mmol/L (98-108); Creatinine, Serum 0.53 mg/dL (0.70-1.20); EST Glomerular Filtration Rate 99 (>60); Estimated Creatinine Clearance 57.54 ml/min (50-250); Glucose 210 mg/dL (70-99); Potassium 4.2 mmol/L (3.3-5.1); Sodium Level 133 mmol/L (133-145)
[2024-07-19 06:51] LABS: International Normalized Ratio 3.9
[2024-07-19] MEDS: Ipratropium/Albuterol Sulfate 3 ML AMPUL.NEB INHALATION ×2 (07:10→13:00)
[2024-07-19] MEDS: Furosemide 40 MG Tablet PO (09:11)
[2024-07-19] MEDS: Lactobacillis Acidophilus 1 CAP PO ×2 (09:11→14:34)
[2024-07-19] MEDS: Tolterodine Tartrate 2 MG CAP.SA PO (09:11)
[2024-07-19] MEDS: Sertraline 100 MG Tablet PO (09:11)
[2024-07-19] MEDS: Amox/Clavulanate 875 MG Tablet PO (09:11)
[2024-07-19] MEDS: dexAMETHasone 4 MG Tablet PO (09:12)
[2024-07-19] MEDS: dilTIAZem CD 180 MG Capsule 360 MG PO (09:12)
[2024-07-19] MEDS: Pantoprazole Sodium 40 MG Tablet PO (09:12)
[2024-07-19] MEDS: Cholecalciferol (Vit D3) 125 MCG CAPSULE (5,000 UNITS) PO (09:12)
[2024-07-19] MEDS: Spironolactone 50 MG Tablet PO (09:12)
--- NOTE | 2024-07-19 10:04 | CASEMGMT ---
Hospitalist called KAREN BUTCHER and stated pt likely to DC with O2 at 6L, her baseline O2 is 5L. KAREN BUTCHER into pt room, pt states her home O2 concentrator goes up to 10L.
[2024-07-19 11:18] LABS: Bedside Glucose 245 mg/dL (74-106)
--- NOTE | 2024-07-19 13:54 | CPS ---
Patient was on 4L at rest, started walk with her on 4L, came out of room, took a left at nursing station, and made it to the end of the cushion maker board, before feeling that she could not continue anymore, saturation was appropriate at that time. Turned her around and walked her back toward her room near room 109-110 when oxygen saturation then dropped 88%, increased oxygen to 6L (next step in the tank), she felt she could not walk anymore becoming unsteady. Patient placed in wheelchair, after talking with patient, she stated that amount of walking in this process is more walking then she would normally do at home. She reiterated that mutliple times. Patient resting comfortably in chair on previous 5L with normal oxygen saturation.
--- NOTE | 2024-07-19 16:02 | DCINST_ITS ---
Discharge Instructions Diet Discharge Diet: 1800 Calorie Control Diet DC O2, CPAP, BIPAP needs Home O2 Discharge instructions: Yes Type of respiratory needs?: Oxygen Oxygen frequency: Continuous Continuous oxygen liters per minute: 4 L and With Ambulation Oxygen liters per minute during Ambulation: 6 L Dressing / Incision Discharge Activity: Return to Normal Activity Weight Bearing Status: Full weight bearing Follow Up Care Test Results: Test results from this visit will be discussed in further detail at your follow- up appointment, if applicable. Discharge Plan Admission Admit Date/Time: 07/05/24 23:16 Primary Reason for Your Visit: respiratory failure, pneumonia Attending Provider: Parrish Scanlon Primary Care Provider: Jose Miguel Pedraza Consulting Providers: Jose Francisco Lynch; Lakia Menjivar; Basia Beltrán; Emeka Lowe Discharge Orders/Prescriptions Prescriptions: New furosemide 40 mg Tablet 40 mg PO BIDLX Qty: 60 0RF warfarin [Jantoven] 3 mg Tablet 3 mg PO DINNER Qty: 0 0RF prednisone 20 mg tablet 20 mg PO DAILY Qty: 7 0RF Rx Instructions: take for seven days starting 07/20/24 Continued albuterol sulfate 90 mcg/actuation HFA aerosol inhaler 1 puff INHALATION Q6H PRN (Reason: bronchospasm) Qty: 8.5 3RF (DME) handicap placard See Rx Instructions .Route .MEDSUPPLY Qty: 1 0RF Rx Instructions: Duration 5 years, Diagnosis: Dyspnea tolterodine 2 mg capsule,extended release 24hr 2 mg PO DAILY Qty: 90 3RF ambrisentan 10 MG tablet 10 mg PO DAILY budesonide-formoterol 160-4.5 mcg/actuation HFA aerosol inhaler 2 puff INHALATION BID nystatin 100,000 unit/gram cream 1 applic topical PRN sildenafil (pulm.hypertension) 20 mg tablet 60 mg PO TID ondansetron 4 mg tablet,disintegrating 4 mg PO Q8H PRN PRN (Reason: Nausea) Qty: 10 0RF (DME) blood sugar diagnostic Strip See Rx Instructions .ROUTE .MEDSUPPLY Qty: 100 3RF Dose Instruction: As directed Rx Instructions: check blood sugar three times a day (DME) lancets [OneTouch UltraSoft Lancets] Misc See Rx Instructions .ROUTE .MEDSUPPLY Qty: 200 2RF Dose Instruction: As directed Rx Instructions: daily- check blood sugar three times a day Spiriva Respimat 1.25 mcg/actuation mist 2 puff inhalation DAILY Qty: 4 0RF omeprazole 40 mg capsule,delayed release(DR/EC) 40 mg PO DAILY Qty: 90 3RF metformin 500 mg tablet 500 mg PO BID Qty: 180 1RF pravastatin 40 mg tablet 40 mg PO QHS Qty: 90 3RF diltiazem HCl [Matzim [place]] 360 mg tablet extended release 24 hr 360 mg PO DAILY Qty: 90 1RF sertraline 100 mg tablet 100 mg PO DAILY Qty: 90 1RF warfarin 3 mg tablet 3 mg PO DAILY Qty: 60 1RF Protocol: Dose Management Condition: Thursday Dose/Route: 3 mg Instruction: 1 x 3 mg tablet Condition: Thursday Dose/Route: 3 mg Instruction: 1 x 3 mg tablet Condition: Thursday Dose/Route: 3 mg Instruction: 1 x 3 mg tablet Condition: Thursday Dose/Route: 3 mg Instruction: 1 x 3 mg tablet Condition: Dose/Route: 3 mg Instruction: 1 x 3 mg tablet Condition: Thursday Dose/Route: 3 mg Instruction: 1 x 3 mg tablet Condition: Thursday Dose/Route: 3 mg Instruction: 1 x 3 mg tablet Protocol Text: Adjustment Start Date: 05/22/22 INR Value: 4.3 INR Date: 05/21/22 Recheck Date: 05/28/22 Rx Instructions: 3mg po qd 5 days a week. alprazolam [Xanax] 0.5 mg tablet 0.5 mg PO BID PRN (Reason: anxiety) Qty: 60 0RF (DME) INR home diagnositic machine See Rx Instructions .Route .MEDSUPPLY Qty: 1 0RF Rx Instructions: As directed spironolactone 50 mg tablet 50 mg PO DAILY Qty: 90 1RF potassium chloride 20 mEq tablet extended release 20 meq PO TID Qty: 270 0RF Discontinued furosemide 20 mg tablet 20 mg PO BID Qty: 180 2RF ciprofloxacin HCl 0.3 % drops See Rx Instructions ophthalmic (eye) .COMPLEX Qty: 2.5 1RF Rx Instructions: put 1-2 drps in affected eye(s) every 2hr up to 8 times/day x2days; then 4 times/day x5days ophthalmic (eye) Oxygen, Home [Home Oxygen] 6 l NASAL CONT Rx Instructions: OF NOTE, PATIENT PRIOR OXYGEN SET-UP WITH 4-5L REST AND 6.5L ACTIVITY. During admission patient transitioned Referrals / Follow Up: Jose Miguel Pedraza DO [Primary Care Provider] - 07/26/24 10:30 am
--- NOTE | 2024-07-19 16:17 | PCM.DC.SUM ---
Providers Date of Admission: 07/05/24 Date of Discharge: 07/19/24 Primary Care Physician: Dr. Jose Miguel Pedraza, DO Consultations 07/10/24 07:28 Consult: Paper Products Machine Operator / Pulmonary Medicine Routine Consulting Provider: Intensivists/Pulmonary Med Reason for Consult: persistant hypoxia and not clinically improving EMERGENT Consult: No MD Notified: Yes Date Notified: 07/10/24 Time Notified: 07:28 Method of Notification: computer Reason For Visit: AE COPD, BRONCHIECTASIS, ?SUBSEGMENTAL PE'S Diagnosis Discharge Diagnosis (1) Acute on chronic hypoxic respiratory failure: Status: Chronic Code(s): J96.21 - Acute and chronic respiratory failure with hypoxia Plan 1. Acute on chronic hypoxic respiratory failure-patient's pulse ox will be monitored, patient will need a walking pulse ox before she is discharged home #2 exacerbation of COPD with flareup of bronchiectasis-patient was treated with antibiotics, IV corticosteroids, and Lasix. 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 meeting less than 75% of estimated nutritional needs x 4 months, 23% unintentional weight loss x 4 months, and moderate wasting in the clavicular region-patient is receiving 240 cc of Glucerna shake 3 times daily with meals, patient is being followed by nutritional services Pulmonary emboli were not confirmed Medications at Discharge Home Medications ambrisentan 10 mg tablet 10 mg PO DAILY pulmonary hypertension 04/21/16 albuterol sulfate 90 mcg/actuation aerosol inhaler 1 puff inhalation Q6H PRN bronchospasm #8.5 grams 08/28/21 blood sugar diagnostic #100 ea 10/09/21 lancets (OneTouch UltraSoft Lancets) #200 ea 10/09/21 tiotropium bromide 1.25 mcg/actuation mist for inhalation (Spiriva Respimat) 2 puff inhalation DAILY #4 grams 12/03/21 omeprazole 40 mg capsule,delayed release 40 mg PO DAILY #90 caps 07/22/23 budesonide-formoterol HFA 160 mcg-4.5 mcg/actuation aerosol inhaler 2 puff inhalation BID SoB 09/10/23 nystatin 100,000 unit/gram topical cream 1 applic topical PRN Rash 09/10/23 metformin 500 mg tablet 500 mg PO BID #180 tabs 09/16/23 pravastatin 40 mg tablet 40 mg PO QHS #90 tabs 09/16/23 diltiazem HCl 360 mg tablet,extended release 24 hr (Matzim LA) 360 mg PO DAILY heart #90 tabs 11/20/23 handicap placard #1 ea 12/29/23 sertraline 100 mg tablet 100 mg PO DAILY #90 tabs 03/02/24 alprazolam 0.5 mg tablet (Xanax) 0.5 mg PO BID PRN anxiety #60 tabs 06/03/24 ondansetron 4 mg disintegrating tablet 4 mg PO Q8H PRN PRN Nausea #10 tabs 06/04/24 sildenafil (pulm.hypertension) 20 mg tablet 60 mg PO TID pulmonary hypertension 06/04/24 INR home diagnositic machine #1 ea 06/15/24 potassium chloride 20 mEq tablet,extended release 20 meq PO TID #270 tabs 06/16/24 spironolactone 50 mg tablet 50 mg PO DAILY #90 tabs 06/16/24 tolterodine 2 mg capsule,extended release 24 hr 2 mg PO DAILY #90 caps 07/05/24 furosemide 40 mg tablet 40 mg PO BIDLX #60 tabs 07/19/24 prednisone 20 mg tablet 20 mg PO DAILY #7 tabs 07/19/24 warfarin 3 mg tablet (Jantoven) 3 mg PO DINNER #0 tabs 07/19/24 Hospital Course Operations None Procedures None Summary of Care Provided Minutes Spent on Discharge: 32 Hospital Course: This 69-year-old white female was seen in the emergency room at [facility] with complaints of shortness of breath, patient is on 5 L of oxygen via nasal cannula at baseline at home, she endorsed a productive cough and dyspnea. Her primary care doctor advised her to go to the ER for evaluation. Patient had labs performed in the ER, CBC was unremarkable and her chemistry profile was unremarkable. Chest x-ray was obtained which showed a right perihilar pneumonia, CTA of the chest was performed, there is a suspicion for middle and bilateral lower lobar pulmonary emboli. Mild diffuse bronchiectasis was noted to be present. Patient was admitted for COPD exacerbation and acute on chronic respiratory insufficiency and possible PEs, pneumonia was also a possibility but this examiner did not feel that she had pneumonia. Patient was given IV antibiotics and aerosol treatments echocardiogram was obtained which showed a normal ejection fraction mild pulmonary hypertension. Patient was seen in consultation by critical care/pulmonary medicine. Patient was not felt by myself to have pneumonia, I felt she had a flareup of bronchiectasis. Patient was given extra warfarin in an attempt to raise her INR which did become therapeutic prior to discharge. On 07/19/2024, patient was seen and examined: On examination she appeared in good health and spirits, she does not appear to be in any distress. Vital signs as documented. Skin warm and dry and without overt rashes. Neck without JVD, thyroid appears normal, trachea is midline, neck is supple. Lungs clear, normal air movement was noted. Heart exam notable for regular rhythm, normal sounds and absence of murmurs, rubs or gallops. Abdomen unremarkable and without evidence of organomegaly, masses, or abdominal aortic enlargement, bowel sounds are present in all 4 quadrants, no abdominal tenderness was noted. Extremities nonedematous, no cyanosis was noted, no clubbing was noted. Neuro: Cranial nerves II through XII are grossly intact, no focal motor deficits were noted, sensation to light touch and pinprick is intact, motor exam 5/5 throughout. Psych: Patient is alert and oriented x3, she does not appear anxious or depressed, she does not appear agitated. Patient was discharged home in stable condition on 07/19/2024. Medical Records Data Medical Nutrition Assessment Dietitian: Malnutrition Criteria Met Start: 07/06/24 14:47 Freq: Status: Active Protocol: Document 07/19/24 13:36 SB (Rec: 07/19/24 13:36 SB [id number]) Nutrition Malnutrition Evidence of Yes Malnutrition Exists Malnutrition (severe Chronic ): Evidenced By Suboptimal Energy Intake (Severe),Weight Loss (Severe), Physical Changes (Moderate) Clinical Problem Chronic Disease or Condition Related Malnutrition Etiology severe related to inadequate oral intake and increased energy expenditure d/t COPD Signs/Symptoms as evidenced by PO meeting <75% of estimated nutrition needs x 4 months, 21% unintentional weight loss x 4 months and moderate wasting in clavicle region. Status Active Problem Recommendation Dietitian Continue consistent carbohydrate diet. Recommendations/ Discontinue 240ml glucerna shake TID with meals per pt Changes request and refusals to consume. Adjust to vanilla fortified pudding TID with meals. Will monitor weight trends. If PO and weight continue to declines, recommend nutrition support. Weight / BMI Weight Weight: 63 kg Body Mass Index (BMI) 25.4 ABG / Lab / Microbiology Data 07/19/24 05:29 07/19/24 05:29 Laboratory: Laboratory Results - last 24 hr 07/18/24 16:22: POC Glucose 329 H 07/18/24 21:12: POC Glucose 261 H 07/19/24 05:29: WBC 14.9 H, RBC 5.35, Hgb 12.2, Hct 39.2, MCV 73.3 L, MCH 22.8 L, MCHC 31.1 L, RDW Std Deviation 44.4 H, RDW Coeff of Brittany 17.9 H, Plt Count 164, MPV 9.7, Immature Gran % (Auto) 1.900 H, Neut % (Auto) 88.3 H, Lymph % (Auto) 5.6 L, Stafford % (Auto) 3.8, Eos % (Auto) 0.1, Baso % (Auto) 0.3, Absolute Neuts (auto) 13.1 H, Absolute Lymphs (auto) 0.83, Nucleated RBC % 0, PT 39.0 H, INR 3.9, Sodium 133, Potassium 4.2, Chloride 99, Carbon Dioxide 25.2, Anion Gap 9, BUN 17, Creatinine 0.53 L, Estim Creat Clear Calc 57.54, Est GFR (MDRD) Non-Af 99, BUN/Creatinine Ratio 32.5 H, Glucose 210 H, Calcium 9.3 07/19/24 06:10: POC Glucose 180 H 07/19/24 11:00: POC Glucose 245 H Microbiology: Microbiology 07/09/24 19:20 Sputum, Expectorated/Coughed Gram Stain - Final 07/09/24 19:20 Sputum, Expectorated/Coughed Respiratory Culture - Final Staphylococcus aureus Corynebacterium striatum Presumptive C albicans 07/07/24 11:35 Urine, Clean Catch Legionella Antigen - Final 07/07/24 11:35 Urine, Clean Catch Streptococcus pneumoniae Antigen (M - Final 07/06/24 05:08 Mucosa - Nasopharyngeal Respiratory Panel (PCR) - Final 07/05/24 21:00 Mucosa - Nose SARS-CoV-2, Influenza & RSV (PCR) - Final D/C Instructions Discharge Diet: 1800 Calorie Control Diet Weight Bearing Status: Full weight bearing DC O2, CPAP, BIPAP Needs PSN CPAP & BiPAP: BiPAP & CPAP Settings per PSN Mode AIRVO 07/11/24 07:03 Bipap Delivery Device Nasal Pillows 07/11/24 07:03 Fraction of Inspired Oxygen ( 5 07/13/24 03:15 FIO2) Total Flow Rate 30 07/11/24 07:03 Home O2 Discharge instructions: Yes Type of respiratory needs?: Oxygen Oxygen frequency: Continuous Continuous oxygen liters per minute: 4 L and With Ambulation Oxygen liters per minute during Ambulation: 6 L DC home with Oxygen: Yes Home O2 MD Review: I have reviewed the oxygen testing, and the patient qualifies for home oxygen equipment and portability. The patient is mobile in the home and the community. Meaningful Use Info Meaningful Use Meaningful Use Diagnoses (Choose all that apply): None applicable Ischemic Stroke Statin Dosing Therapy Reference: STATIN DOSE THERAPY REFERENCE: * Patients > 75 years receive moderate or high dose statin therapy. * Patients 75 years or YOUNGER should receive HIGH intensity statin dose unless contraindicated. You will be required to document reason for non-treatment if statin daily dose does not meet guidelines. HIGH DOSE STATIN THERAPY DAILY Atorvastatin > than or = to 40 mg Rosuvastatin > than or = to 20 mg Amlodipine + Atorvastatin > than or = to 2.5/40 mg Ezetimibe + Simvastatin 10/80 mg Simvastatin 80mg Discharge Plan Admission Admit Date/Time: 07/05/24 23:16 Primary Reason for Your Visit: respiratory failure, pneumonia Attending Provider: Parrish Scanlon Primary Care Provider: Jose Miguel Pedraza Consulting Providers: Jose Francisco Lynch; Lakia Menjivar; Basia Beltrná; Emeka Lowe Instructions Additional Instructions / Restrictions: Follow up with your lung doctor as scheduled Discharge Orders/Prescriptions Prescriptions: New furosemide 40 mg Tablet 40 mg PO BIDLX Qty: 60 0RF warfarin [Jantoven] 3 mg Tablet 3 mg PO DINNER Qty: 0 0RF prednisone 20 mg tablet 20 mg PO DAILY Qty: 7 0RF Rx Instructions: take for seven days starting 07/20/24 Continued albuterol sulfate 90 mcg/actuation HFA aerosol inhaler 1 puff INHALATION Q6H PRN (Reason: bronchospasm) Qty: 8.5 3RF (DME) handicap placard See Rx Instructions .Route .MEDSUPPLY Qty: 1 0RF Rx Instructions: Duration 5 years, Diagnosis: Dyspnea tolterodine 2 mg capsule,extended release 24hr 2 mg PO DAILY Qty: 90 3RF ambrisentan 10 MG tablet 10 mg PO DAILY budesonide-formoterol 160-4.5 mcg/actuation HFA aerosol inhaler 2 puff INHALATION BID nystatin 100,000 unit/gram cream 1 applic topical PRN sildenafil (pulm.hypertension) 20 mg tablet 60 mg PO TID ondansetron 4 mg tablet,disintegrating 4 mg PO Q8H PRN PRN (Reason: Nausea) Qty: 10 0RF (DME) blood sugar diagnostic Strip See Rx Instructions .ROUTE .MEDSUPPLY Qty: 100 3RF Dose Instruction: As directed Rx Instructions: check blood sugar three times a day (DME) lancets [OneTouch UltraSoft Lancets] Mis See Rx Instructions .ROUTE .MEDSUPPLY Qty: 200 2RF Dose Instruction: As directed Rx Instructions: daily- check blood sugar three times a day Spiriva Respimat 1.25 mcg/actuation mist 2 puff inhalation DAILY Qty: 4 0RF omeprazole 40 mg capsule,delayed release(DR/EC) 40 mg PO DAILY Qty: 90 3RF metformin 500 mg tablet 500 mg PO BID Qty: 180 1RF pravastatin 40 mg tablet 40 mg PO QHS Qty: 90 3RF diltiazem HCl [Matzim LA] 360 mg tablet extended release 24 hr 360 mg PO DAILY Qty: 90 1RF sertraline 100 mg tablet 100 mg PO DAILY Qty: 90 1RF alprazolam [Xanax] 0.5 mg tablet 0.5 mg PO BID PRN (Reason: anxiety) Qty: 60 0RF (DME) INR home diagnositic machine See Rx Instructions .Route .MEDSUPPLY Qty: 1 0RF Rx Instructions: As directed spironolactone 50 mg tablet 50 mg PO DAILY Qty: 90 1RF potassium chloride 20 mEq tablet extended release 20 meq PO TID Qty: 270 0RF Discontinued furosemide 20 mg tablet 20 mg PO BID Qty: 180 2RF ciprofloxacin HCl 0.3 % drops See Rx Instructions ophthalmic (eye) .COMPLEX Qty: 2.5 1RF Rx Instructions: put 1-2 drps in affected eye(s) every 2hr up to 8 times/day x2days; then 4 times/day x5days ophthalmic (eye) Oxygen, Home [Home Oxygen] 6 l NASAL CONT Rx Instructions: OF NOTE, PATIENT PRIOR OXYGEN SET-UP WITH 4-5L REST AND 6.5L ACTIVITY. During admission patient transitioned Referrals / Follow Up: Jose Miguel Pedraza DO [Primary Care Provider] - 07/26/24 10:30 am Disposition Disposition (needs filled in before D/C Order can be placed): Home Health Service Charges/Coding Visit Charges Inpatient E&M: 45451 Disch Hosp >30min
[2024-07-19 16:21] LABS: Bedside Glucose 291 mg/dL (74-106)
[2024-07-19] MEDS: Ondansetron ODT 4 MG Tablet PO (17:59)
--- NOTE | 2024-07-22 14:30 | CASEMGMT ---
Discharge Planning Discharge instructions sent to [facility]. Gilda Solo DC Planning Asst.
== END 2024-07-19 18:31 | disposition home health service (06) | DRG 189 ==
LOC: ED 20:25 → PCU 23:41
PROVIDERS: Hospitalist; Internal Medicine; Physician Assistant; Student in an Organized Health Care Education/Training Program; Admitting Provider Internal Medicine; Emergency Provider Surgery; PCP Family Medicine; Visit Provider Internal Medicine
DX: J96.21 Acute and chronic respiratory failure with hypoxia (principal); E43 Unspecified severe protein-calorie malnutrition; J47.1 Bronchiectasis with (acute) exacerbation; I42.9 Cardiomyopathy, unspecified; I13.0 Hypertensive heart and chronic kidney disease with heart failure and stage 1 through stage 4 chronic kidney disease, or unspecified chronic kidney disease; I48.20 Chronic atrial fibrillation, unspecified; J44.1 Chronic obstructive pulmonary disease with (acute) exacerbation; J44.0 Chronic obstructive pulmonary disease with (acute) lower respiratory infection; Z66 Do not resuscitate; I50.9 Heart failure, unspecified; E11.22 Type 2 diabetes mellitus with diabetic chronic kidney disease; N18.31 Chronic kidney disease, stage 3a; F32.A Depression, unspecified; J34.2 Deviated nasal septum; E78.5 Hyperlipidemia, unspecified; K21.9 Gastro-esophageal reflux disease without esophagitis; M19.90 Unspecified osteoarthritis, unspecified site; J04.0 Acute laryngitis; I25.10 Atherosclerotic heart disease of native coronary artery without angina pectoris; G47.33 Obstructive sleep apnea (adult) (pediatric); F41.9 Anxiety disorder, unspecified; E66.3 Overweight; Z68.26 Body mass index [BMI] 26.0-26.9, adult; Z79.01 Long term (current) use of 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; Z86.718 Personal history of other venous thrombosis and embolism; Z79.84 Long term (current) use of oral hypoglycemic drugs; Z11.52 Encounter for screening for COVID-19; Z87.891 Personal history of nicotine dependence; R79.1 Abnormal coagulation profile; N32.81 Overactive bladder; Z95.810 Presence of automatic (implantable) cardiac defibrillator; Z79.52 Long term (current) use of systemic steroids; Z86.711 Personal history of pulmonary embolism; R32 Unspecified urinary incontinence; Z68.25 Body mass index [BMI] 25.0-25.9, adult
CPT/HCPCS: 36415; 36600; 71045; 71275; 80048; 80053; 82803; 82962; 83036; 83605; 83735; 84100; 84443; 84484; 85025; 85027; 85610; 87070; 87077; 87186; 87205; 87449; 87631; 87633; 93005; 93306; 94640; 94660; 94760; 94762; 97110; 97116; 97162; 97166; 97530; 97535; 97803; 99283; J2020; Q9967; A4216; J1940

== ENCOUNTER 2024-07-26 16:33 | Outpatient (RCR) | payer MEDICARE, SELFPAY ==
[2024-06-11 01:33] VITALS: BMI 33.6
[2024-07-26 16:59] LABS: INR Fingerstick 3.7; Prothrombin Time Fingerstick 37.1 SEC (11.7-14.9)
== END 2024-07-26 18:00 | disposition home or self-care (01) ==
LOC: MTLAB 16:33
PROVIDERS: Family Provider Family Medicine; PCP Family Medicine; Referring Provider Family Medicine; Visit Provider Family Medicine
DX: Z79.01 Long term (current) use of 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 (principal)
CPT/HCPCS: 36416; 85610

== ENCOUNTER → 2025-03-07 | Outpatient (CLI) | payer MEDICARE, SELFPAY ==
--- NOTE | 2025-03-07 16:50 | US_ITS ---
PROCEDURE: KIDNEY AND BLADDER 03/07/2025 REASON FOR EXAM: UTI TECHNIQUE: Procedure Code: USKI Modality: US Procedure: KIDNEY AND BLADDER FINDINGS: Right kidney measures 12.4 cm and left kidney measures 12.5 cm. Normal echotexture of bilateral kidneys. No hydronephrosis. No renal stones. Mildly thickened urinary bladder wall which may reflect cystitis vs nondistention; consider correlation with urinalysis. US/Kidney and Bladder IMPRESSION: No hydronephrosis. Mildly thickened urinary bladder wall which may reflect cystitis vs nondistenti on; consider correlation with urinalysis. Reading Location: [id number]
== END | disposition home or self-care (01) ==
LOC: US 16:47
PROVIDERS: PCP Family Medicine; Referring Provider Urology; Visit Provider Urology
DX: N39.0 Urinary tract infection, site not specified (principal)
CPT/HCPCS: 76770

== ENCOUNTER → 2025-03-23 | Outpatient (CLI) | payer MEDICARE, SELFPAY ==
--- NOTE | 2025-03-23 15:11 | RAD_ITS ---
PROCEDURE: CHEST PA AND LATERAL 03/23/2025 REASON FOR EXAM: PRODUCTIVE COUGH TECHNIQUE: Procedure Code: RADCXR Modality: DX Procedure: CHEST PA AND LATERAL COMPARISON: Chest x-ray dated 07/05/2024 FINDINGS: Hardware: None. Heart: Heart size and configuration are within normal limits. Arteriosclerotic vascular disease of the aorta is noted. Mediastinum: There is increased opacification in the right hilar region which is similar when compared to the prior study. This most likely represents a prominent pulmonary artery. Lungs: Emphysematous changes of the lungs are noted. Parenchymal scarring is noted in the lingular region. Stable 4 mm nodule seen in the right upper lobe medially. Stable prominent interstitial markings are seen in both lungs. There are no pleural effusions or pneumothoraces. There are no consolidative processes. Bones: Degenerative changes of the thoracic spine are noted. There is a subtle dextroscoliosis of the thoracic spine. Demineralization of the bony thorax is noted. RAD/Chest PA and Lateral IMPRESSION: Emphysematous changes of the lungs are noted. Parenchymal scarring is noted of the hilar region Stable prominent interstitial markings in both lungs. Stable 4 mm nodule right upper lobe medially. Degenerative changes of the thoracic spine. Arteriosclerotic vascular disease of the aorta. Reading Location: [id number]
== END | disposition home or self-care (01) ==
LOC: MTRAD 15:09
PROVIDERS: PCP Family Medicine; Referring Provider Family Medicine; Visit Provider Family Medicine
DX: J44.9 Chronic obstructive pulmonary disease, unspecified (principal)
CPT/HCPCS: 71046

== ENCOUNTER 2025-04-12 13:38 | Emergency (ER) | payer MEDICARE, SELFPAY ==
[2025-04-12 13:39] VITALS: BP 131/96; PULSE 79; RESP 18; TEMP 37.4; O2SAT 90
[2025-04-12 13:52] VITALS: BMI 25.3
--- NOTE | 2025-04-12 14:15 | CT_ITS ---
PROCEDURE: BRAIN/HEAD WITHOUT CONTRAST 04/12/2025 REASON FOR EXAM: FALL ON WARFARIN HIT HEAD TECHNIQUE: Procedure Code: CTBR Modality: CT Procedure: BRAIN/HEAD WITHOUT CONTRAST Coronal and Sagittal reconstruction series were provided. One or more dose reduction techniques were used (e.g., Automated exposure control, adjustment of the mA and/or kV according to patient size, use of iterative reconstruction technique. RADIATION DOSE SUMMARY: CTDlvol: 45 mGy DLP: 829 mGycm COMPARISON: June 02, 2024 FINDINGS: Brain: There is no evidence of hemorrhage, acute ischemia or mass. No extra- axial fluid collection, midline shift or mass effect. Low-density in the periventricular white matter and deep white matter. CSF Spaces: Mild generalized cerebral atrophy Sinuses/Mastoids: Mastoid air cells are clear. Complete opacification of the paranasal sinuses bilaterally. Bones: No fracture CT/Brain/Head without Contrast IMPRESSION: 1. No evidence of intracranial hemorrhage or acute ischemia. 2. Changes of chronic microvascular ischemia and volume loss. 3. Pansinusitis. No change. Reading Location: [id number]
--- NOTE | 2025-04-12 14:15 | CT_ITS ---
PROCEDURE: SPINE CERVICAL WITHOUT CONTRAS 04/12/2025 REASON FOR EXAM: FALL, HIT HEAD TECHNIQUE: Procedure Code: CTS Modality: CT Procedure: SPINE CERVICAL WITHOUT CONTRAS Coronal and Sagittal reconstruction series were provided. One or more dose reduction techniques were used (e.g., Automated exposure control, adjustment of the mA and/or kV according to patient size, use of iterative reconstruction technique. RADIATION DOSE SUMMARY: CTDlvol: 16 mGy DLP: 359 mGycm COMPARISON: None FINDINGS: Alignment: Reversal of the normal cervical lordosis. 2 mm anterolisthesis of C4 on C5.. Vertebrae: No fracture. Disc space narrowing is mild at C4/5. [id number] at C5/6 and C6/7 with uncinate spurring and endplate spurring. Degenerative change between the anterior arch of C1 and the dens of C2. Soft Tissues: No mass or lymphadenopathy. Lung apices are clear. CT/Spine Cervical without Contras IMPRESSION: 1. Reversal of the normal cervical lordosis. No fracture. 2. Degenerative changes cervical spine. Reading Location: [id number]
--- NOTE | 2025-04-12 14:32 | RAD_ITS ---
PROCEDURE: CHEST PA AND LATERAL 04/12/2025 REASON FOR EXAM: POSTERIOR RIGHT RIB PAIN, FALL TECHNIQUE: Procedure Code: RADCXR Modality: DX Procedure: CHEST PA AND LATERAL COMPARISON: Prior study dated March 23, 2025. FINDINGS: Hardware: None Heart: The heart size is upper limits of normal. Mediastinum: Unremarkable Lungs: Prominence of the central pulmonary arteries suggestive of pulmonary hypertension. Stable scarring in the lingula segment of the left upper lobe. No evidence of pleural effusions. Bones: Degenerative changes are identified within the thoracic spine. RAD/Chest PA and Lateral IMPRESSION: Prominence of the central pulmonary arteries suggestive of pulmonary hypertensi on. Stable scarring in the lingula segment of the left upper lobe. Reading Location: [place] [id number]
--- NOTE | 2025-04-12 14:32 | RAD_ITS ---
PROCEDURE: SHOULDER MIN 2 VIEWS 04/12/2025 REASON FOR EXAM: FALL, SHOULDER PAIN TECHNIQUE: Procedure Code: RADSH Modality: DX Procedure: SHOULDER MIN 2 VIEWS Laterality: Right COMPARISON: None FINDINGS: Bones: No fracture Joints: Severe joint space narrowing glenohumeral joint with mild remodeling and osteophytosis of the opposing articular surfaces is seen. The humeral head is high-riding. Soft tissues: Soft tissues are unremarkable. RAD/Shoulder min 2 Views IMPRESSION: Osteoarthritis. High-riding humeral head. This can be seen with rotator cuff pathology. No fracture. Reading Location: [id number]
--- NOTE | 2025-04-12 15:22 | ED.VIS.FALL ---
HPI HPI - Fall History of Present Illness Chief Complaint: Fall Narrative Narrative: Patient is a 70-year-old female presenting to the emergency department after mechanical fall. Patient has extensive past medical history including COPD, TIA, phospholipid disorder, pulmonary arterial hypertension on 4 to 5 L nasal cannula baseline, anemia, TIA, A-fib, type 2 diabetes. Patient states that she was using her walker and it got caught on the lip between the two type of terra causing her to fall forward striking her head. She states she is on warfarin. Patient denies losing consciousness. She endorses having lateral posterior chest wall and right shoulder. Denies any chest pain, shortness of breath, abdominal pain. [facility] Medical History Depression due to physical illness Acute on chronic hypoxic respiratory failure Laryngitis Respiratory insufficiency Bronchiectasis COPD exacerbation Chronic anticoagulation Pulmonary emboli Diabetes On home oxygen therapy DVT (deep venous thrombosis) TIA (transient ischemic attack) Panic disorder with agoraphobia Osteoporosis Former smoker Pulmonary embolism Urinary tract infection Primary pulmonary hypertension (PPH) COPD (chronic obstructive pulmonary disease) Claustrophobia Anxiety Depression TIA (transient ischemic attack) Type 2 diabetes mellitus Atrial fibrillation Lupus anticoagulant disorder Pulmonary arterial hypertension Home Medications ?Medication ?Instructions ?Recorded ?Last Taken ?Type ambrisentan 10 mg tablet 10 mg PO DAILY pulmonary 04/21/16 07/05/24 09:30 History hypertension albuterol sulfate 90 mcg/actuation 1 puff inhalation Q6H PRN 08/28/21 07/05/24 Rx aerosol inhaler bronchospasm #8.5 grams lancets (OneTouch UltraSoft #200 ea 10/09/21 Unknown Rx Lancets) tiotropium bromide 1.25 2 puff inhalation DAILY #4 grams 12/03/21 Unknown Rx mcg/actuation mist for inhalation (Spiriva Respimat) budesonide-formoterol HFA 160 2 puff inhalation BID SoB 09/10/23 Unknown History mcg-4.5 mcg/actuation aerosol inhaler nystatin 100,000 unit/gram topical 1 applic topical PRN Rash 09/10/23 Unknown History cream handicap placard #1 ea 12/29/23 Unknown Rx sildenafil (pulm.hypertension) 20 60 mg PO TID pulmonary hypertension 06/04/24 07/05/24 09:00 History mg tablet INR home diagnositic machine #1 ea 06/15/24 Unknown Rx ondansetron 4 mg disintegrating 4 mg PO Q8H PRN PRN Nausea #10 tabs 08/02/24 Unknown Rx tablet blood sugar diagnostic (OneTouch #100 ea 08/19/24 Unknown Rx Ultra Test strips) omeprazole 40 mg capsule,delayed 40 mg PO DAILY #90 caps 08/30/24 Unknown Rx release alprazolam 0.5 mg tablet (Xanax) 0.5 mg PO BID PRN anxiety #60 tabs 09/06/24 Unknown Rx sertraline 100 mg tablet 100 mg PO DAILY #90 tabs 12/13/24 Unknown Rx potassium chloride 20 mEq 20 meq PO TID #270 TABLETS 01/10/25 Unknown Rx tablet,extended release warfarin 4 mg tablet 4 mg PO QDAY #60 tabs 02/15/25 Unknown Rx diltiazem HCl 360 mg 360 mg PO DAILY heart #90 tabs 02/20/25 Unknown Rx tablet,extended release 24 hr (Matzim LA) metformin 500 mg tablet 500 mg PO BID #180 tabs 02/20/25 Unknown Rx pravastatin 40 mg tablet 40 mg PO QHS #90 tabs 02/20/25 Unknown Rx estradiol 0.01% (0.1 mg/gram) 1 g vaginal 3XW 3 months #42.5 02/21/25 Unknown Rx vaginal cream grams cephalexin 500 mg capsule 500 mg PO TID #30 caps 03/22/25 Unknown Rx prednisone 20 mg tablet 20 mg PO QDAY #10 tabs 03/22/25 Unknown Rx Gemtesa 75 mg tablet (vibegron) 75 mg PO QDAY #90 tabs 03/23/25 Unknown Rx furosemide 20 mg tablet 20 mg PO BID #180 tabs 03/23/25 Unknown Rx spironolactone 50 mg tablet 50 mg PO DAILY #90 TABLETS 04/12/25 Unknown Rx warfarin 2 mg tablet (Jantoven) 4 mg (2 x 2 mg) PO DAILY #60 04/12/25 Unknown Rx TABLETS Allergy/AdvReac Type Severity Reaction Status Date / Time doxycycline AdvReac Intermediate Other Verified 04/12/25 13:39 nitroglycerin AdvReac Other Verified 04/12/25 13:39 Family History Mother COPD (chronic obstructive pulmonary disease) Cancer melanoma Father Heart disease Alcoholism Grandmother Cancer Grandfather Parkinsons disease Surgical History History of embolic filter insertion H/O endoscopy H/O colonoscopy History of placement of ear tubes history of bunion surgery History of tonsillectomy History of cholecystectomy Social History household members: none Smoking Status: Former smoker Tobacco: How many years used: 8 how long ago did patient quit smokin years alcohol intake: never substance use type: does not use what type of physical activity do you participate in: none ROS ROS ED ROS Narrative See HPI EXAM Physical Exam Narrative Exam Narrative: Vital signs: Reviewed General: Alert and oriented x 3. No acute distress. Chronically ill-appearing, nontoxic. HEENT: Head is normocephalic. There is a small abrasion to above the right lateral eyebrow. No laceration. No tenderness to palpation of the midface. Pupils equal round and reactive. Extraocular movements intact. Nares are patent. No septal hematoma. Oropharynx and throat exams normal. No oropharyngeal trauma Neck: Supple without lymphadenopathy nontender. No midline cervical spinal tenderness to palpation. No step-offs or deformities. Cardiovascular: Regular rate and rhythm, no murmurs. No rubs or gallops. Normal S1 and S2 Respiratory: Clear to auscultation bilaterally. No wheezes, rales, rhonchi. On baseline 4 L nasal cannula. Chest: Anterior and lateral chest wall are atraumatic and nontender to palpation with no crepitus, erythema or ecchymosis. Abdominal: Soft and nontender. Normal bowel sounds. No guarding or rebound. Nonsurgical abdomen Extremities: There is no midline thoracic or lumbar spinal tenderness to palpation. No step-offs or deformities. There is some mild tenderness to palpation of the mid thoracic right sided posterior ribs with no crepitus, erythema or ecchymosis. Hips are stable and nontender to palpation. Bilateral lower extremities are atraumatic and nontender to palpation with normal active range of motion. The right shoulder is mildly tender to palpation with no obvious deformity. There is some ecchymosis of the shoulder. Skin: No rash or redness. Neurological: Cranial nerves II through XII are grossly intact. Normal strength and sensation. Normal cerebellar function The rest of the physical exam is unremarkable Const Vital Signs: 04/12/25 13:39 04/12/25 15:27 04/12/25 16:15 Temperature 99.3 F H 98.1 F Temperature Source Oral Pulse Rate 79 70 68 Respiratory Rate 18 19 H 16 Blood Pressure 131/96 H 156/65 H 127/74 H Blood Pressure Mean 107 95 91 Pulse Ox 90 95 100 Oxygen Delivery Method Nasal Cannula Oxygen Flow Rate (L/min) 4 MDM MDM MDM Narrative Medical decision making narrative: Patient is a 70-year-old female presenting to the emergency department after mechanical fall. Patient was seen and examined. Vitals are stable. Patient resting in bed comfortably in no acute distress. She is on her baseline nasal cannula. The patient had a mechanical fall, no indication for labs or EKG. Will obtain CT imaging of the brain and cervical spine given she is on warfarin and did strike her head. She has no other evidence of facial trauma other than the small abrasion above her right eyebrow which is likely from her glasses which she reports broke. X-ray imaging of the chest, shoulder will be obtained as well. CT of the brain shows no evidence of intracranial hemorrhage or acute ischemia. Chronic changes noted. CT cervical spine with no fracture. Degenerative changes noted. X-rays reviewed by myself, no fractures or dislocations noted. No pneumothorax noted. Radiology read with no acute findings. High riding humeral head that can be seen with rotator cuff pathology. Patient was reevaluated and updated on the negative workup. I explained that chest x-ray does not completely rule out a rib fracture and she may still have 1. It is mainly pain management if she did have a fracture and is on her baseline oxygen. Only required tylenol while here. In terms of the small abrasion to her right upper eyebrow there is no laceration or gaping wound that needs repair. She ambulated without difficulty. She is stable for outpatient management. Patient discharged from the Emergency Department. I do not feel that the patient's evaluation reveals any acute reason for admission at this time. I instructed them to either follow-up with their primary care physician or promptly return to the Emergency Department for reevaluation should symptoms worsen or new symptoms develop. I explained what symptoms would indicate the need to return to the emergency department. Shared decision making was used. The patient voiced understanding of the treatment plan and is agreeable with it. Clinical impression Fall Head trauma History & Record Review Discussion w/independent historian: Patient and Family Radiography Chest X-Ray - ED: 2 View, Read by ED Physician and No Infiltrates X-Ray: Read by ED Physician and No Fracture Diagnostic Testing: Clinical Impression(s) from Imaging Studies Brain CT 04/12/25 14:15 IMPRESSION: 1. No evidence of intracranial hemorrhage or acute ischemia. 2. Changes of chronic microvascular ischemia and volume loss. 3. Pansinusitis. No change. Reading Location: [facility] Cervical Spine CT 04/12/25 14:15 IMPRESSION: 1. Reversal of the normal cervical lordosis. No fracture. 2. Degenerative changes cervical spine. Reading Location: [facility] Chest X-Ray 04/12/25 14:32 IMPRESSION: Prominence of the central pulmonary arteries suggestive of pulmonary hypertension. Stable scarring in the lingula segment of the left upper lobe. [facility] 04/12/25 14:32 IMPRESSION: Osteoarthritis. High-riding humeral head. This can be seen with rotator cuff pathology. No fracture. Reading Location: [facility] Discharge Plan Triage Chief Complaint: Fall ED Provider: Stephanie Jacboo Dx/Rx/DC Orders Clinical Impression: Fall, Head trauma, Contusion of right shoulder Prescriptions: No Action albuterol sulfate 90 mcg/actuation HFA aerosol inhaler 1 puff INHALATION Q6H PRN (Reason: bronchospasm) Qty: 8.5 3RF (DME) handicap placard See Rx Instructions .Route .MEDSUPPLY Qty: 1 0RF Rx Instructions: Duration 5 years, Diagnosis: Dyspnea ondansetron 4 mg tablet,disintegrating 4 mg PO Q8H PRN PRN (Reason: Nausea) Qty: 10 2RF sertraline 100 mg tablet 100 mg PO DAILY Qty: 90 1RF prednisone 20 mg tablet 20 mg PO QDAY Qty: 10 0RF cephalexin 500 mg capsule 500 mg PO TID Qty: 30 0RF estradiol 0.01 % (0.1 mg/gram) cream 1 g vaginal 3XW 90 Days Qty: 42.5 3RF Gemtesa 75 mg tablet 75 mg PO QDAY Qty: 90 3RF ambrisentan 10 MG tablet 10 mg PO DAILY budesonide-formoterol 160-4.5 mcg/actuation HFA aerosol inhaler 2 puff INHALATION BID nystatin 100,000 unit/gram cream 1 applic topical PRN sildenafil (pulm.hypertension) 20 mg tablet 60 mg PO TID (DME) lancets [OneTouch UltraSoft Lancets] Misc See Rx Instructions .ROUTE .MEDSUPPLY Qty: 200 2RF Dose Instruction: As directed Rx Instructions: daily- check blood sugar three times a day Spiriva Respimat 1.25 mcg/actuation mist 2 puff inhalation DAILY Qty: 4 0RF (DME) INR home diagnositic machine See Rx Instructions .Route .MEDSUPPLY Qty: 1 0RF Rx Instructions: As directed (DME) [employer] Ultra Test Strip See Rx Instructions .Route Qty: 100 6RF Rx Instructions: As directed to check blood glucose three times daily for DMII omeprazole 40 mg capsule,delayed release(DR/EC) 40 mg PO DAILY Qty: 90 3RF alprazolam [Xanax] 0.5 mg tablet 0.5 mg PO BID PRN (Reason: anxiety) Qty: 60 0RF potassium chloride 20 mEq tablet extended release 20 meq PO TID Qty: 270 0RF warfarin 4 mg tablet 4 mg PO QDAY Qty: 60 2RF Rx Instructions: Dinner metformin 500 mg tablet 500 mg PO BID Qty: 180 1RF pravastatin 40 mg tablet 40 mg PO QHS Qty: 90 0RF diltiazem HCl [Matzim LA] 360 mg tablet extended release 24 hr 360 mg PO DAILY Qty: 90 1RF furosemide 20 mg tablet 20 mg PO BID Qty: 180 0RF warfarin [Jantoven] 2 mg tablet 4 mg PO DAILY Qty: 60 3RF spironolactone 50 mg tablet 50 mg PO DAILY Qty: 90 1RF Primary Care Provider: Jose Miguel Pedraza Referrals: Jose Miguel Pedraza, DO [Primary Care Provider, Internal Medicine] - As soon as possible Activity Restrictions/Additional Instructions: You are going to be sore over the next few days, take Tylenol as needed for pain control. Your evaluation in the Emergency Department did not reveal any acute reason for admission. However, I want to emphasize that you may be early in the course of a disease process or illness even if it is not present. For this reason you should follow-up within 24 hours for reevaluation with either your primary care physician or if necessary back here in the Emergency Department. You should return to the Emergency Department immediately if your symptoms worsen or new symptoms develop. Print Language: Spanish Disposition Disposition: Home, Self Care Discharge Date/Time: 04/12/25 16:17
[2025-04-12 15:27] VITALS: BP 156/65; PULSE 70; RESP 19; O2SAT 95
[2025-04-12 16:15] VITALS: BP 127/74; PULSE 68; RESP 16; TEMP 36.7; O2SAT 100
== END 2025-04-12 16:17 | disposition home or self-care (01) ==
PROVIDERS: Emergency Provider Student in an Organized Health Care Education/Training Program; PCP Family Medicine; Visit Provider Student in an Organized Health Care Education/Training Program
DX: S09.90XA Unspecified injury of head, initial encounter (principal); J44.9 Chronic obstructive pulmonary disease, unspecified; E11.9 Type 2 diabetes mellitus without complications; Z86.718 Personal history of other venous thrombosis and embolism; Z82.49 Family history of ischemic heart disease and other diseases of the circulatory system; Z87.891 Personal history of nicotine dependence; Z86.711 Personal history of pulmonary embolism; S40.011A Contusion of right shoulder, initial encounter; Z82.5 Family history of asthma and other chronic lower respiratory diseases; Z86.73 Personal history of transient ischemic attack (TIA), and cerebral infarction without residual deficits; Z79.01 Long term (current) use of 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; W01.10XA Fall on same level from slipping, tripping and stumbling with subsequent striking against unspecified object, initial encounter; Z90.49 Acquired absence of other specified parts of digestive tract
CPT/HCPCS: 70450; 71046; 72125; 73030; 99282